=== PATIENT | male | born 1975 | race African-American/Black ===

== ENCOUNTER 2021-08-27 17:03 | Observation (INO) | payer OTHER ==
[2021-08-27] MEDS ORDERED: ASPIRIN 81 MG PO STA (17:22)
[2021-08-27] MEDS ORDERED: NITROGLYCERIN OINT 1 INCH/GM PACKET TOPICAL STA (17:22)
--- NOTE | 2021-08-27 17:29 | ED ---
General Adult HPI - General Chief complaint: Chest Pain Stated complaint: Chest Pain Time Seen by Provider: 08/27/21 17:11 Source: patient, EMS, RN notes reviewed Mode of arrival: EMS Limitations: no limitations - History of Present Illness Initial comments: Patient is a pleasant 46-year-old male presenting to the emergency Department with chest discomfort. Onset of symptoms was today. Patient has had several episodes of chest discomfort. Patient has some mild associated dyspnea. No nausea. No diaphoresis. Patient did have similar symptoms a year or 2 ago and was told he had a heart attack at that time. Patient is difficult time describing the type of discomfort that he had. Patient is currently in a rehab facility secondary to heroin use. Patient has been there for 2 weeks now. - Related Data Home Medications Medication Instructions Recorded Confirmed Acetaminophen Tab [Tylenol] 650 mg PO TID 08/27/21 08/27/21 Benztropine Mesylate [Cogentin] 0.5 mg PO BID@0615,1730 08/27/21 08/27/21 Budesonide/Formoterol Fumarate 2 puff INHALATION RT-BID@0615,1730 08/27/21 08/27/21 [Symbicort 80-4.5 Mcg Inhaler] Docusate [Colace] 100 mg PO BID PRN 08/27/21 08/27/21 Haloperidol Decanoate [Haldol D] 150 mg IM QMONTHLY 08/27/21 08/27/21 Ibuprofen [Motrin Ib] 600 mg PO Q6H PRN 08/27/21 08/27/21 Insulin Detemir [Levemir Flextouch 50 units SQ HS@2130 08/27/21 08/27/21 Pen] Loratadine [Claritin] 10 mg PO DAILY 08/27/21 08/27/21 Losartan Potassium 50 mg PO DAILY@0615 08/27/21 08/27/21 Magnesium Hydroxide [Milk of 2,400 mg PO DAILY PRN 08/27/21 08/27/21 Magnesia] Multivitamins, Thera [Multivitamin 1 tab PO DAILY 08/27/21 08/27/21 (formulary)] Pantoprazole [Protonix] 40 mg PO DAILY@0615 08/27/21 08/27/21 Thiamine [Vitamin B-1] 100 mg PO DAILY 08/27/21 08/27/21 amLODIPine [Norvasc] 5 mg PO DAILY@0615 08/27/21 08/27/21 busPIRone HCl [Buspar] 10 mg PO TID 08/27/21 08/27/21 guaiFENesin-Coden 100-10MG/5ML 10 ml PO Q4H 08/27/21 08/27/21 [Robitussin AC] metFORMIN HCL 1,000 mg PO BID@0530,0615 08/27/21 08/27/21 ondansetron HCL [Zofran] 8 mg PO Q6H PRN 08/27/21 08/27/21 traZODone HCL [Desyrel] 50 - 150 mg PO DIRECTED 08/27/21 08/27/21 Allergies Allergy/AdvReac Type Severity Reaction Status Date / Time blue dye AdvReac Rapid Verified 08/27/21 18:03 Heart Rate Review of Systems ROS Statement: Those systems with pertinent positive or pertinent negative responses have been documented in the HPI. ROS Other: All systems not noted in ROS Statement are negative. Constitutional: Denies: fever Eyes: Denies: eye pain ENT: Denies: ear pain Respiratory: Reports: as per HPI Cardiovascular: Reports: as per HPI, chest pain Endocrine: Denies: fatigue Gastrointestinal: Denies: abdominal pain Genitourinary: Denies: dysuria Musculoskeletal: Denies: back pain Skin: Denies: rash Neurological: Denies: weakness Past Medical History Past Medical History: Coronary Artery Disease (CAD), Diabetes Mellitus Additional Past Medical History / Comment(s): pt type 1 diabetes pt received 50 uints of levemeir hs History of Any Multi-Drug Resistant Organisms: None Reported Past Surgical History: Orthopedic Surgery Additional Past Surgical History / Comment(s): Knee surgey 1993 Past Psychological History: Schizophrenia Smoking Status: Current every day smoker Past Alcohol Use History: Unable to Obtain Past Drug Use History: Cocaine, Marijuana General Exam Limitations: no limitations General appearance: alert, in no apparent distress Head exam: Present: normocephalic Eye exam: Present: normal appearance Neck exam: Present: normal inspection Respiratory exam: Present: normal lung sounds bilaterally. Absent: chest wall tenderness Cardiovascular Exam: Present: regular rate, normal rhythm Expanded Peripheral pulses: 2+: Radial (R), Radial (L), Posterior Tibialis (R), Posterior Tibialis (L) GI/Abdominal exam: Present: soft. Absent: tenderness Extremities exam: Present: normal inspection. Absent: pedal edema, calf tenderness Neurological exam: Present: alert Psychiatric exam: Present: normal affect, normal mood Skin exam: Present: normal color Course Vital Signs 08/27/21 17:07 Temperature 96 F L Pulse Rate 70 Respiratory 18 Rate Blood Pressure 143/90 O2 Sat by Pulse 95 Oximetry EKG Findings - EKG Comments: EKG Findings:: Normal sinus rhythm with a rate of 72. MN 166. QRS 82. QT 340. QTc 372. Normal axis. Normal QRS. Nonspecific ST-T. Medical Decision Making - Medical Decision Making Patient reevaluated and resting comfortably in bed. Patient updated on results and plan. Case was discussed with Dr. morocho, who will admit covering for hospital call. - Lab Data Result diagrams: 08/27/21 17:07 08/27/21 17:07 Lab Results 08/27/21 08/27/21 08/27/21 Range/Units 17:07 17:07 17:07 WBC 5.8 (3.8-10.6) k/uL RBC 4.34 (4.30-5.90) m/uL Hgb 13.0 (13.0-17.5) gm/dL Hct 39.1 (39.0-53.0) % MCV 90.0 (80.0-100.0) fL MCH 30.0 (25.0-35.0) pg MCHC 33.4 (31.0-37.0) g/dL RDW 12.8 (11.5-15.5) % Plt Count 219 (150-450) k/uL MPV 7.8 Neutrophils % 54 % Lymphocytes % 33 % Monocytes % 7 % Eosinophils % 5 % Basophils % 0 % Neutrophils # 3.1 (1.3-7.7) k/uL Lymphocytes # 1.9 (1.0-4.8) k/uL Monocytes # 0.4 (0-1.0) k/uL Eosinophils # 0.3 (0-0.7) k/uL Basophils # 0.0 (0-0.2) k/uL PT 9.9 (9.0-12.0) sec INR 0.9 (<1.2) APTT 25.5 (22.0-30.0) sec D-Dimer 0.38 (<0.60) mg/L FEU Sodium 133 L (137-145) mmol/L Potassium 4.5 (3.5-5.1) mmol/L Chloride 100 (98-107) mmol/L Carbon Dioxide 27 (22-30) mmol/L Anion Gap 6 mmol/L BUN 23 H (9-20) mg/dL Creatinine 0.84 (0.66-1.25) mg/dL Est GFR (CKD-EPI)AfAm >90 (>60 ml/min/1.73 sqM) Est GFR (CKD-EPI)NonAf >90 (>60 ml/min/1.73 sqM) Glucose 233 H (74-99) mg/dL Calcium 9.4 (8.4-10.2) mg/dL Magnesium 1.8 (1.6-2.3) mg/dL Total Bilirubin 0.3 (0.2-1.3) mg/dL AST 18 (17-59) U/L ALT 16 (4-49) U/L Alkaline Phosphatase 73 (38-126) U/L Troponin I (0.000-0.034) ng/mL Total Protein 6.9 (6.3-8.2) g/dL Albumin 3.8 (3.5-5.0) g/dL 08/27/21 Range/Units 17:07 WBC (3.8-10.6) k/uL RBC (4.30-5.90) m/uL Hgb (13.0-17.5) gm/dL Hct (39.0-53.0) % MCV (80.0-100.0) fL MCH (25.0-35.0) pg MCHC (31.0-37.0) g/dL RDW (11.5-15.5) % Plt Count (150-450) k/uL MPV Neutrophils % % Lymphocytes % % Monocytes % % Eosinophils % % Basophils % % Neutrophils # (1.3-7.7) k/uL Lymphocytes # (1.0-4.8) k/uL Monocytes # (0-1.0) k/uL Eosinophils # (0-0.7) k/uL Basophils # (0-0.2) k/uL PT (9.0-12.0) sec INR (<1.2) APTT (22.0-30.0) sec D-Dimer (<0.60) mg/L FEU Sodium (137-145) mmol/L Potassium (3.5-5.1) mmol/L Chloride (98-107) mmol/L Carbon Dioxide (22-30) mmol/L Anion Gap mmol/L BUN (9-20) mg/dL Creatinine (0.66-1.25) mg/dL Est GFR (CKD-EPI)AfAm (>60 ml/min/1.73 sqM) Est GFR (CKD-EPI)NonAf (>60 ml/min/1.73 sqM) Glucose (74-99) mg/dL Calcium (8.4-10.2) mg/dL Magnesium (1.6-2.3) mg/dL Total Bilirubin (0.2-1.3) mg/dL AST (17-59) U/L ALT (4-49) U/L Alkaline Phosphatase (38-126) U/L Troponin I <0.012 (0.000-0.034) ng/mL Total Protein (6.3-8.2) g/dL Albumin (3.5-5.0) g/dL - Radiology Data Radiology results: image reviewed (Chest x-ray shows no acute process) Disposition Clinical Impression: Chest pain Disposition: ADMITTED IP TO THIS HOSP Is patient prescribed a controlled substance at d/c from ED?: No Referrals: None,Stated [Primary Care Provider] - 1-2 days Decision Time: 18:24
[2021-08-27 17:38] LABS: Basophils % (A) 0 %; Eosinophils # (A) 0.3 k/uL (0-0.7); Eosinophils % (A) 5 %; HCT 39.1 % (39.0-53.0); Lymphocytes # (A) 1.9 k/uL (1.0-4.8); Lymphocytes % (A) 33 %; MCHC 33.4 g/dL (31.0-37.0); Mean Platelet Volume 7.8; Monocytes # (A) 0.4 k/uL (0-1.0); Monocytes % (A) 7 %; Neutrophils # (A) 3.1 k/uL (1.3-7.7); Neutrophils % (A) 54 %; Platelet Count 219 k/uL (150-450); RBC 4.34 m/uL (4.30-5.90); RDW 12.8 % (11.5-15.5); WBC 5.8 k/uL (3.8-10.6)
[2021-08-27 17:47] LABS: ALT 16 U/L (4-49); AST 18 U/L (17-59); African American GFR (CKD) >90 (>60 ml/min/1.73 sqM); Albumin 3.8 g/dL (3.5-5.0); Alkaline Phosphatase 73 U/L (38-126); Anion Gap 6 mmol/L; Blood Urea Nitrogen 23 mg/dL (9-20); Calcium 9.4 mg/dL (8.4-10.2); Carbon Dioxide 27 mmol/L (22-30); Chloride 100 mmol/L (98-107); Glucose 233 mg/dL (74-99); Magnesium 1.8 mg/dL (1.6-2.3); Non-African American GFR(CKD) >90 (>60 ml/min/1.73 sqM); Potassium 4.5 mmol/L (3.5-5.1); Sodium 133 mmol/L (137-145); Total Bilirubin 0.3 mg/dL (0.2-1.3); Total Protein 6.9 g/dL (6.3-8.2)
[2021-08-27 17:52] LABS: INR 0.9 (<1.2); Partial Thromboplastin Time 25.5 sec (22.0-30.0); Prothrombin Time 9.9 sec (9.0-12.0)
--- NOTE | 2021-08-27 18:08 | XR ---
EXAMINATION TYPE: XR chest 2V DATE OF EXAM: 08/27/2021 COMPARISON: NONE HISTORY: Chest pain TECHNIQUE: 2 views FINDINGS: Heart and mediastinum are normal. Lungs are clear. Diaphragm is normal. Bony thorax is inta ct. There are chest leads. IMPRESSION: No active cardiopulmonary disease. Normal heart.
[2021-08-27] MEDS ORDERED: NITROGLYCERIN SL TABS 0.4 MG TAB SUBLINGUAL PRN (18:27)
--- NOTE | 2021-08-27 20:57 | P.HPIM ---
History of Present Illness H&P Date: 08/27/21 The patient is a 46-year-old male with a PMH of coronary artery disease with no history of stents as per patient, COPD, type II DM, hypertension, hyperlipidemia, polysubstance abuse including crack cocaine (last used just prior to admission into [facility] 2 weeks ago), and tobacco abuse who prese nted to the emergency room with complaints of chest pain. The patient is currently residing at [facility] over the past 2 weeks and notes that he was in his usual state of health until this afternoon when he developed new left- sided chest discomfort. The pain is pressure and sharp-like in nature, lasting for a second at a time, occurring several times a minute, associated with some mild shortness of breath. The patient reports that the pain was initially 7 out of 10, but has since resolved after he took a nap in the emergency room. He reports that he had similar's symptoms 2 years ago and was told that he may have had a minor heart attack at that time. Denied lower extremity swelling or pain. Denied recent travel or prolonged immobilization. Denied pleuritic nature to the pain. The patient states that he has not been taking any of his medications over the past several months and has not seen a physician during that time. He denied any additional complaints at the time of interview. He denied fever, chills, cough, nausea, vomiting, dizziness, diaphoresis. EKG in the emergency room revealed normal sinus rhythm at 72 bpm without any acute ST/T-wave changes noted as reviewed by me. Chest x-ray was unremarkable. Laboratory evaluation was reviewed and was remarkable for sodium 133, BUN 23, glucose 233, troponin less than 0.012. Review of systems: Pertinent positives and negatives as discussed in HPI, a complete review of systems was performed and all other systems are negative. Physical examination: General: non toxic, no distress, appears at stated age, obese Derm: no unusual rashes/lesions no unusual ecchymoses, warm, dry Head: atraumatic, normocephalic, symmetric Eyes: EOMI, no lid lag, anicteric sclera, pupils equal round reactive to light ENT: Nose and ears atraumatic, no thrush, no pharyngeal erythema Neck: No thyromegaly, no cervical lymphadenopathy, trachea midline, supple Mouth: no lip lesion, mucus membranes moist Cardiovascular: S1S2 reg, no murmur, positive posterior tibial pulse bilateral, no edema, capillary refill less than 2 seconds Lungs: CTA bilateral, no rhonchi, no rales , no accessory muscle use Abdominal: soft, nontender to palpation, no guarding, no appreciable organomegaly, normal bowel sounds Ext: no gross muscle atrophy, muscle strength 5 out of 5 in all 4 extremities grossly, no contractures, Neuro: CN II-XI grossly intact, light touch intact all 4 extremities, finger to nose within normal limits, Psych: Alert, oriented, appropriate affect Assessment/plan Atypical chest pain -Cardiac monitoring -Cardiology consulted -Trend troponin -C/w ASA Chronic conditions: Type II DM, COPD, hypertension, hyperlipidemia, polysubstance abuse -Strongly advised on importance of cessation from substance use -Check A1c -Lispro insulin sliding scale blood glucose monitoring -Levemir 20 units daily at bedtime -Resume antihypertensives -Patient has not been taking his medications at home for several months DVT prophylaxis -Heparin subcu The patient is admitted with an anticipated less than 2 midnight stay for evaluation of atypical chest pain CODE STATUS: Full Code Discussed with: Patient Anticipated discharge date: in am Anticipated discharge place: [facility] Past Medical History Past Medical History: Coronary Artery Disease (CAD), Diabetes Mellitus Additional Past Medical History / Comment(s): pt type 1 diabetes pt received 50 uints of levemeir hs History of Any Multi-Drug Resistant Organisms: None Reported Past Surgical History: Orthopedic Surgery Additional Past Surgical History / Comment(s): Knee surgey 1993 Past Psychological History: Schizophrenia Smoking Status: Current every day smoker Past Alcohol Use History: Unable to Obtain Past Drug Use History: Cocaine, Marijuana - Past Family History Father Family Medical History: Coronary Artery Disease (CAD) Medications and Allergies Home Medications Medication Instructions Recorded Confirmed Type Acetaminophen Tab [Tylenol] 650 mg PO TID 08/27/21 08/27/21 History Benztropine Mesylate [Cogentin] 0.5 mg PO BID@0615,1730 08/27/21 08/27/21 History Budesonide/Formoterol Fumarate 2 puff INHALATION RT-BID@0615,1730 08/27/21 08/27/21 History [Symbicort 80-4.5 Mcg Inhaler] Docusate [Colace] 100 mg PO BID PRN 08/27/21 08/27/21 History Haloperidol Decanoate [Haldol D] 150 mg IM QMONTHLY 08/27/21 08/27/21 History Ibuprofen [Motrin Ib] 600 mg PO Q6H PRN 08/27/21 08/27/21 History Insulin Detemir [Levemir Flextouch 50 units SQ HS@2130 08/27/21 08/27/21 History Pen] Loratadine [Claritin] 10 mg PO DAILY 08/27/21 08/27/21 History Losartan Potassium 50 mg PO DAILY@15 08/27/21 08/27/21 History Magnesium Hydroxide [Milk of 2,400 mg PO DAILY PRN 08/27/21 08/27/21 History Magnesia] Multivitamins, Thera [Multivitamin 1 tab PO DAILY 08/27/21 08/27/21 History (formulary)] Pantoprazole [Protonix] 40 mg PO DAILY@61408/27/21 08/27/21 History Thiamine [Vitamin B-1] 100 mg PO DAILY 08/27/21 08/27/21 History amLODIPine [Norvasc] 5 mg PO DAILY@15 08/27/21 08/27/21 History busPIRone HCl [Buspar] 10 mg PO TID 08/27/21 08/27/21 History guaiFENesin-Coden 100-10MG/5ML 10 ml PO Q4H 08/27/21 08/27/21 History [Robitussin AC] metFORMIN HCL 1,000 mg PO BID@0530,0615 08/27/21 08/27/21 History ondansetron HCL [Zofran] 8 mg PO Q6H PRN 08/27/21 08/27/21 History traZODone HCL [Desyrel] 50 - 150 mg PO DIRECTED 08/27/21 08/27/21 History Allergies Allergy/AdvReac Type Severity Reaction Status Date / Time blue dye AdvReac Rapid Verified 08/27/21 18:03 Heart Rate Physical Exam Vitals: Vital Signs Temp Pulse Resp BP Pulse Ox 08/27/21 20:00 98.1 F 71 18 156/94 97 08/27/21 18:42 69 18 123/99 99 08/27/21 17:07 96 F L 70 18 143/90 95 Intake and Output 11/06/0908/27/21 08/27/21 06:59 14:59 22:59 Other: Weight 104.326 kg Results CBC & Chem 7: 08/27/21 17:07 08/27/21 17:07 Labs: Abnormal Lab Results - Last 24 Hours (Table) 08/27/21 Range/Units 17:07 Sodium 133 L (137-145) mmol/L BUN 23 H (9-20) mg/dL Glucose 233 H (74-99) mg/dL
[2021-08-27] MEDS ORDERED: INSULIN DETEMIR (LEVEMIR) 100 UNIT/ML SYR SQ SCH ×2 (21:00→21:30)
[2021-08-27 21:20] LABS: Glucose,Whole Blood 275 mg/dL (75-99)
[2021-08-27] MEDS: INSULIN ASPART (NovoLOG) 100 UNIT/ML VIAL SQ SCH (21:48)
[2021-08-27] MEDS: busPIRone HCl 10 MG TAB PO SCH (23:22)
[2021-08-27] MEDS: HEPARIN SODIUM,PORCINE/PF 5,000 UNIT/0.5 ML SYRINGE SQ SCH (23:23)
[2021-08-27] MEDS: NITROGLYCERIN OINT 1 INCH/GM PACKET TOPICAL SCH (23:24)
[2021-08-28] MEDS: IPRATROPIUM-ALBUTEROL 3 ML NEB INHALATION PRN ×2 (04:47→07:29)
[2021-08-28] MEDS ORDERED: metFORMIN 500 MG TAB PO SCH (05:30)
[2021-08-28] MEDS: NITROGLYCERIN OINT 1 INCH/GM PACKET TOPICAL SCH (05:42)
[2021-08-28] MEDS ORDERED: BENZTROPINE MESYLATE 0.5 MG TAB PO SCH (06:15)
[2021-08-28] MEDS ORDERED: PANTOPRAZOLE 40 MG TABLET PO SCH (06:15)
[2021-08-28] MEDS ORDERED: LOSARTAN 50 MG TAB PO SCH (06:15)
[2021-08-28] MEDS ORDERED: SYMBICORT 80-4.5 MCG INHALER INHALATION SCH (06:15)
[2021-08-28] MEDS ORDERED: amLODIPine 5 MG TAB PO SCH (06:15)
[2021-08-28 07:23] LABS: Glucose,Whole Blood 198 mg/dL (75-99)
[2021-08-28 07:37] VITALS: BP 142/88; RESP 19; TEMP 98.1
[2021-08-28 07:44] VITALS: PULSE 70
[2021-08-28] MEDS ORDERED: DOBUTamine DRIP for NUC MED 500 MG in DEXTROSE/WATER 1 250ML.BAG IV PRN (07:59)
[2021-08-28] MEDS: INSULIN ASPART (NovoLOG) 100 UNIT/ML VIAL SQ SCH ×2 (08:20→13:25)
[2021-08-28] MEDS: HEPARIN SODIUM,PORCINE/PF 5,000 UNIT/0.5 ML SYRINGE SQ SCH ×2 (08:20→15:27)
[2021-08-28] MEDS: busPIRone HCl 10 MG TAB PO SCH (08:22)
[2021-08-28] MEDS ORDERED: THIAMINE 100 MG TAB PO SCH (09:00)
[2021-08-28] MEDS ORDERED: ASPIRIN 325 MG TAB PO SCH (09:00)
--- NOTE | 2021-08-28 10:14 | CONS ---
CONSULTATION Mr. Muñiz is a 46-year-old male who presented with symptoms of chest discomfort. Patient was at [facility] for detoxification from cocaine use and had an episode of chest discomfort. According to him, he had a prior history of myocardial infarction, although he thinks he had a cardiac catheterization at [facility] and had no evidence of obstructive disease, according to him. He last used cocaine about 2 weeks ago. He has a history of chronic tobacco use, hypertension, diabetes. He has mild dyspnea on exertion. Yesterday at rest, he had an episode of chest discomfort without any radiation. He denies any associated dizziness or palpitations. No syncope. No clear PND or orthopnea. At the time of my evaluation, he is pain-free. Patient is trying to increase his level of activity. He denies any prior history of congestive heart failure or history of syncope. MEDICATIONS: His medications at home included trazodone, metformin, BuSpar, Norvasc 5 mg daily, Protonix, losartan 50 mg daily, insulin, Symbicort, Cogentin, Colace and Haldol. REVIEW OF SYSTEMS: RESPIRATORY SYSTEM: He had dyspnea on exertion, history of chronic obstructive lung disease. GI SYSTEM: No recent GI bleeding. No peptic ulcer disease. SYSTEM: No dysuria or hematuria. NERVOUS SYSTEM: No history of stroke or seizure. PHYSICAL EXAMINATION: Qyppr-[id number]-[id number]-old male, alert, oriented, in no apparent distress. Blood pressure 142/80 with a heart rate in the 70s. HEAD: Normocephalic. EYES: Sclerae anicteric. NECK: Good carotid upstroke. No bruit. No jugular venous distention. LUNGS: Scattered wheezes bilaterally and decreased air exchange. HEART: Regular rate and rhythm. S1, S2. No S3. No rub or gallop. ABDOMEN: Soft, nontender. Positive bowel sounds. No organomegaly. EXTREMITIES: No edema. Intact distal pulses. LAB DATA: EKG sinus mechanism, normal axis and intervals with minor nonspecific ST-T wave changes. Chest x-ray shows no evidence of infiltrate. Troponin less than 0.012 for 3 samples. BUN and creatinine 23 and 0.84. Hemoglobin of 13. Potassium 4.5. IMPRESSION: 1. Chest discomfort of unclear etiology; has some atypical features for ischemic heart disease in a patient with multiple risk factors. 2. Multi-substance abuse with recent use of cocaine. 3. History of chronic tobacco use. 4. Hypertension. 5. Diabetes mellitus. RECOMMENDATIONS: I will stop the nitro paste. I will proceed with dobutamine stress echocardiogram as well as transthoracic echocardiogram. If there is no evidence of stress-induced ischemia, then no further cardiac workup will be needed. Thank you for this consult. Will follow with you. KAREYL / IJN: [id number] /
[2021-08-28 10:18] LABS: HCT 39.6 % (39.6-50.0); HGB 13.3 g/dL (13.0-17.0); MCH 29.6 pg (27.0-32.0); MCHC 33.6 g/dL (32.0-37.0); Mean Platelet Volume 10.9 fL (9.5-12.2); Platelet Count 234 X 10*3/uL (140-440); RDW 12.6 % (11.5-14.5)
[2021-08-28 11:01] LABS: African American GFR (CKD) 104.9 (60.0-200.0); Anion Gap 10.3 mmol/L (4.00-12.00); BUN/Creat Ratio 18.9 Ratio (12.00-20.00); Blood Urea Nitrogen 18.9 mg/dL (9.0-27.0); Calcium 9.3 mg/dL (8.7-10.3); Carbon Dioxide 25.7 mmol/L (21.6-31.8); Chol/HDL Ratio 5.07 Ratio; HDL Cholesterol 47.7 mg/dL (40.00-60.00); LDL Cholesterol,Calculated 170.5 mg/dL (0.0-131.0); Non-African American GFR(CKD) 90.5 (60.0-200.0); Potassium 4.2 mmol/L (3.5-5.5); VLDL Calculation 23.8 mg/dL (5.00-40.00)
[2021-08-28 11:50] LABS: Glucose,Whole Blood 162 mg/dL (75-99)
--- NOTE | 2021-08-28 12:01 | ECHOF ---
Referral Reason: MEASUREMENTS -------- HEIGHT: 175.3 cm WEIGHT: 104.3 kg BP: IVSd: 1.8 cm (0.6 - 1.1) LVIDd: 3.8 cm (3.9 - 5.3) LVPWd: 1.6 cm (0.6 - 1.1) IVSs: 2.2 cm LVIDs: 2.9 cm LVPWs: 1.7 cm LA Diam: 4.0 cm (2.7 - 3.8) LAESV Index (A-L): 26.68 ml/m Ao Diam: 3.3 cm (2.0 - 3.7) AV Cusp: 2.0 cm (1.5 - 2.6) MV EXCURSION: 17.614 mm (> 18.000) MV EF SLOPE: 67 mm/s (70 - 150) EPSS: 0.2 cm MV E Chad: 0.55 m/s MV DecT: 249 ms MV A Chad: 0.82 m/s MV E/A Ratio: 0.68 AV maxP.34 mmHg AV meanP.08 mmHg RAP: 5.00 mmHg RVSP: 14.84 mmHg FINDINGS -------- Sinus rhythm. This was a technically adequate study. The left ventricular size is normal. There is severe concentric left ventricular hypertrophy. Ove rall left ventricular systolic function is normal with, an EF between 55 - 60 %. The diastolic fill ing pattern is normal for the age of the patient 8.63. No Reginaldo LVOT maxPg 23.30mm Hg: LVOT meanPG 7. 22 mmHg.. The right ventricle is normal in size. Normal LA size by volume 22+/-6 ml/m2. The right atrial size is normal. The aortic valve is trileaflet, and appears structurally normal. No aortic stenosis or regurgitation. The mitral valve is normal. Mild mitral regurgitation is present. The tricuspid valve appears structurally normal. Mild tricuspid regurgitation present. Right vent ricular systolic pressure is normal at < 35 mmHg. There is no pulmonic regurgitation present. The aortic root size is normal. There is no pericardial effusion. CONCLUSIONS -------- 1. There is severe concentric left ventricular hypertrophy. 2. Overall left ventricular systolic function is normal with, an EF between 55 - 60 %. 3. No Reginaldo LVOT maxPg 23.30mm Hg: LVOT meanPG 7.22 mmHg.. 4. Normal LA size by volume 22+/-6 ml/m2. 5. The aortic valve is trileaflet, and appears structurally normal. No aortic stenosis or regurgitati on. 6. Mild mitral regurgitation is present. 7. Mild tricuspid regurgitation present. 8. There is no pericardial effusion. TREAD CUTTER: Jannet Hernandez RDCS
--- NOTE | 2021-08-28 13:31 | P.DS ---
Providers Date of admission: 08/27/21 18:27 Expected date of discharge: 08/28/21 Attending physician: Mariya Jordan DO Consults: 08/27/21 18:27 Consult Physician Urgent Consulting Provider: David Amador Consult Reason/Comments: cp Do you want consulting provider notified?: Yes Primary care physician: Stated None Hospital Course: 46-year-old male with a PMH of coronary artery disease with no history of stents as per patient, COPD, type II DM, hypertension, hyperlipidemia, polysubstance abuse including crack cocaine (last used just prior to admission into [facility] 2 weeks ago), and tobacco abuse who presented to the emergency room with complaints of chest pain. The patient is currently residing at [facility] over the past 2 weeks. The pain is pressure and sharp-like in nature, lasting for a second at a time, occurring several times a minute, associated with some mild shortness of breath. The patient reports that the pain was initially 7 out of 10, but has since resolved after he took a nap in the emergency room. He reports that he had similar's symptoms 2 years ago and was told that he may have had a minor heart attack at that time. Denied lower extremity swelling or pain. Denied recent travel or prolonged immobilization. Denied pleuritic nature to the pain. The patient states that he has not been taking any of his medications over the past several months and has not seen a physician during that time. He denied any additional complaints at the time of interview. He denied fever, chills, cough, nausea, vomiting, dizziness, diaphoresis. EKG in the emergency room revealed normal sinus rhythm at 72 bpm without any acute ST/T-wave changes noted as reviewed by me. Chest x-ray was unremarkable. Laboratory evaluation was reviewed and was remarkable for sodium 133, BUN 23, glucose 233, troponin less than 0.012. Patient was seen by cardiology, had an echocardiogram that showed severe concentric LVH. He also had dobutamine stress echocardiogram that was okay for cardiology. Report is currently pending. Patient was cleared by cardiology for discharge. Patient was advised to quit using drugs. He will be discharged home in stable condition. Plan - Discharge Summary Discharge Rx Participant: Yes New Discharge Prescriptions: Continue Pantoprazole [Protonix] 40 mg PO DAILY@0615 Loratadine [Claritin] 10 mg PO DAILY ondansetron HCL [Zofran] 8 mg PO Q6H PRN PRN Reason: Nausea Insulin Detemir [Levemir Flextouch Pen] 50 units SQ HS@0 Acetaminophen Tab [Tylenol] 650 mg PO TID Multivitamins, Thera [Multivitamin (formulary)] 1 tab PO DAILY metFORMIN HCL 1,000 mg PO BID@0530,0615 Ibuprofen [Motrin Ib] 600 mg PO Q6H PRN PRN Reason: Pain Docusate [Colace] 100 mg PO BID PRN PRN Reason: Constipation Losartan Potassium 50 mg PO DAILY@614 traZODone HCL [Desyrel] 50 - 150 mg PO DIRECTED Thiamine [Vitamin B-1] 100 mg PO DAILY Budesonide/Formoterol Fumarate [Symbicort 80-4.5 Mcg Inhaler] 2 puff INHALATION RT-BID@614,1729 Magnesium Hydroxide [Milk of Magnesia] 2,400 mg PO DAILY PRN PRN Reason: Constipation Haloperidol Decanoate [Haldol D] 150 mg IM QMONTHLY guaiFENesin-Coden 100-10MG/5ML [Robitussin AC] 10 ml PO Q4H busPIRone HCl [Buspar] 10 mg PO TID Benztropine Mesylate [Cogentin] 0.5 mg PO BID@614,1729 amLODIPine [Norvasc] 5 mg PO DAILY@614 Discharge Medication List Acetaminophen Tab [Tylenol] 650 mg PO TID 08/27/21 [History] Benztropine Mesylate [Cogentin] 0.5 mg PO BID@614,1730 08/27/21 [History] Budesonide/Formoterol Fumarate [Symbicort 80-4.5 Mcg Inhaler] 2 puff INHALATION RT-BID@614,17308/27/21 [History] Docusate [Colace] 100 mg PO BID PRN 08/27/21 [History] Haloperidol Decanoate [Haldol D] 150 mg IM QMONTHLY 08/27/21 [History] Ibuprofen [Motrin Ib] 600 mg PO Q6H PRN 08/27/21 [History] Insulin Detemir [Levemir Flextouch Pen] 50 units SQ HS@2130 08/27/21 [History] Loratadine [Claritin] 10 mg PO DAILY 08/27/21 [History] Losartan Potassium 50 mg PO DAILY@61408/27/21 [History] Magnesium Hydroxide [Milk of Magnesia] 2,400 mg PO DAILY PRN 08/27/21 [History] Multivitamins, Thera [Multivitamin (formulary)] 1 tab PO DAILY 08/27/21 [History] Pantoprazole [Protonix] 40 mg PO DAILY@61408/27/21 [History] Thiamine [Vitamin B-1] 100 mg PO DAILY 08/27/21 [History] amLODIPine [Norvasc] 5 mg PO DAILY@61408/27/21 [History] busPIRone HCl [Buspar] 10 mg PO TID 08/27/21 [History] guaiFENesin-Coden 100-10MG/5ML [Robitussin AC] 10 ml PO Q4H 08/27/21 [History] metFORMIN HCL 1,000 mg PO BID@0530,0615 08/27/21 [History] ondansetron HCL [Zofran] 8 mg PO Q6H PRN 08/27/21 [History] traZODone HCL [Desyrel] 50 - 150 mg PO DIRECTED 08/27/21 [History] Follow up Appointment(s)/Referral(s): None,Stated [Primary Care Provider] - 1-2 days
--- NOTE | 2021-08-28 13:56 | ECHOS ---
STRESS ECHOCARDIOGRAM INDICATIONS: Chest pain BASELINE HEART RATE: 77 BASELINE BLOOD PRESSURE: 123/84 MAXIMUM HEART RATE: 138 MAXIMUM BLOOD PRESSURE: 228/53 85% MPHR: 149 100% MPHR: 175 METS: NA MAXIMUM STAGE REACHED: NA TOTAL EXERCISE TIME: 12:38 CLINICAL INFORMATION: Baseline rhythm is sinus mechanism, rate of 77, normal axis and intervals, nonspecific ST-T wave changes. Baseline blood pressure 123/84 mmHg. Patient received an infusion of dobutamine per protocol. Peak rate 138 beats per minute, which is equal to 79% maximum predicted heart rate. Peak blood pressure 228/53 mmHg. Electrocardiograph monitoring revealed no evidence of diagnostic ischemic ST deviation. Rare PVCs were noted. FINDINGS: Baseline echocardiogram revealed normal wall motion. At peak infusion, there was normal wall motion augmentation with no hypokinesis or dyskinesis. CONCLUSION: 1. Nondiagnostic electrocardiographic response to dobutamine infusion secondary to the inability to achieve 85% maximum predicted heart rate. At the rate achieved, there was no evidence of ST-segment changes. 2. Normal stress echocardiogram with no evidence of stress-induced ischemia at the rate achieved. MMODL / IJN: [id number] /
== END 2021-08-28 15:44 | disposition home or self-care (01) ==
LOC: EC 17:03 → 6NMEDSUR 18:27
PROVIDERS: ADMIT Internal Medicine; ATTEND Internal Medicine
DX: R07.89 Other chest pain (principal); I25.10 Atherosclerotic heart disease of native coronary artery without angina pectoris; E11.9 Type 2 diabetes mellitus without complications; J44.9 Chronic obstructive pulmonary disease, unspecified; I10 Essential (primary) hypertension; E78.5 Hyperlipidemia, unspecified; I08.1 Rheumatic disorders of both mitral and tricuspid valves; Z91.14 Patient's other noncompliance with medication regimen; F20.9 Schizophrenia, unspecified; F14.10 Cocaine abuse, uncomplicated; F11.10 Opioid abuse, uncomplicated; F12.10 Cannabis abuse, uncomplicated; I25.2 Old myocardial infarction; F17.200 Nicotine dependence, unspecified, uncomplicated; Z71.51 Drug abuse counseling and surveillance of drug abuser; Z20.822 Contact with and (suspected) exposure to COVID-19; Z79.51 Long term (current) use of inhaled steroids; Z79.4 Long term (current) use of insulin; Z79.84 Long term (current) use of oral hypoglycemic drugs; Z79.899 Other long term (current) drug therapy; Z91.048 Other nonmedicinal substance allergy status; Z98.890 Other specified postprocedural states; Z82.49 Family history of ischemic heart disease and other diseases of the circulatory system
CPT/HCPCS: 96372 ×2; 99285; 36415; 94640 ×2; 93005; 93306; 93351; 85379; 80061; 80053; 80048; 83735; 84484 ×2; 85025; 85027; 85610; 85730; 83036; 87635; 71046; G0378 ×2; J1644 ×2

== ENCOUNTER 2021-09-18 16:00 | Emergency (ER) | payer OTHER ==
[2021-09-18 16:08] VITALS: RESP 18; TEMP 96.4
[2021-09-18] MEDS ORDERED: dexAMETHasone 2 MG TAB PO STA (16:14)
--- NOTE | 2021-09-18 16:24 | ED ---
ENT HPI - General Chief complaint: ENT Stated complaint: Edema Source: patient, EMS, RN notes reviewed Mode of arrival: EMS - History of Present Illness Initial comments: Patient is a 46-year-old male that presents to the emergency department complaining of tongue swelling 3 days. Patient notes that sick heart given 50 mg of Benadryl which seemed to resolve majority of the symptoms. Patient notes that his tongue is a little bit numb and tingly. Patient denies any difficulty breathing swallowing or tolerating oral secretions. Patient is able to tolerate food and drink at this time. Patient is otherwise well-appearing. He denied any other issues or complaints. He denied chest pain first breath headache nausea vomiting diarrhea constipation fever fatigue chills. - Related Data Home Medications Medication Instructions Recorded Confirmed Acetaminophen Tab [Tylenol] 650 mg PO TID 08/27/21 08/27/21 Benztropine Mesylate [Cogentin] 0.5 mg PO BID@0615,1730 08/27/21 08/27/21 Budesonide/Formoterol Fumarate 2 puff INHALATION RT-BID@0615,1730 08/27/21 08/27/21 [Symbicort 80-4.5 Mcg Inhaler] Docusate [Colace] 100 mg PO BID PRN 08/27/21 08/27/21 Haloperidol Decanoate [Haldol D] 150 mg IM QMONTHLY 08/27/21 08/27/21 Ibuprofen [Motrin Ib] 600 mg PO Q6H PRN 08/27/21 08/27/21 Insulin Detemir [Levemir Flextouch 50 units SQ HS@2130 08/27/21 08/27/21 Pen] Loratadine [Claritin] 10 mg PO DAILY 08/27/21 08/27/21 Losartan Potassium 50 mg PO DAILY@0615 08/27/21 08/27/21 Magnesium Hydroxide [Milk of 2,400 mg PO DAILY PRN 08/27/21 08/27/21 Magnesia] Multivitamins, Thera [Multivitamin 1 tab PO DAILY 08/27/21 08/27/21 (formulary)] Pantoprazole [Protonix] 40 mg PO DAILY@0615 08/27/21 08/27/21 Thiamine [Vitamin B-1] 100 mg PO DAILY 08/27/21 08/27/21 amLODIPine [Norvasc] 5 mg PO DAILY@0615 08/27/21 08/27/21 busPIRone HCl [Buspar] 10 mg PO TID 08/27/21 08/27/21 guaiFENesin-Coden 100-10MG/5ML 10 ml PO Q4H 08/27/21 08/27/21 [Robitussin AC] metFORMIN HCL 1,000 mg PO BID@0530,0615 08/27/21 08/27/21 ondansetron HCL [Zofran] 8 mg PO Q6H PRN 08/27/21 08/27/21 traZODone HCL [Desyrel] 50 - 150 mg PO DIRECTED 08/27/21 08/27/21 Allergies Allergy/AdvReac Type Severity Reaction Status Date / Time blue dye AdvReac Rapid Verified 08/27/21 18:03 Heart Rate Review of Systems ROS Statement: Those systems with pertinent positive or pertinent negative responses have been documented in the HPI. ROS Other: All systems not noted in ROS Statement are negative. Past Medical History Past Medical History: Coronary Artery Disease (CAD), Diabetes Mellitus Additional Past Medical History / Comment(s): pt type 1 diabetes pt received 50 uints of levemeir hs History of Any Multi-Drug Resistant Organisms: None Reported Past Surgical History: Orthopedic Surgery Additional Past Surgical History / Comment(s): Knee surgey 1993 Past Anesthesia/Blood Transfusion Reactions: No Reported Reaction Past Psychological History: Schizophrenia Smoking Status: Current every day smoker Past Alcohol Use History: None Reported Past Drug Use History: Cocaine, Marijuana - Past Family History Father Family Medical History: Coronary Artery Disease (CAD) General Exam General appearance: alert, in no apparent distress, obese Head exam: Present: atraumatic, normocephalic, normal inspection Eye exam: Present: normal appearance, PERRL, EOMI. Absent: scleral icterus, conjunctival injection, periorbital swelling ENT exam: Present: normal exam, mucous membranes moist, other (Tongue is nonswollen, airway is patent, no erythema to the pharynx.) Neck exam: Present: normal inspection Respiratory exam: Present: normal lung sounds bilaterally. Absent: respiratory distress, wheezes, rales, rhonchi, stridor Cardiovascular Exam: Present: regular rate, normal rhythm, normal heart sounds. Absent: systolic murmur, diastolic murmur, rubs, gallop, clicks Extremities exam: Present: normal inspection, full ROM, normal capillary refill. Absent: tenderness, pedal edema, joint swelling, calf tenderness Neurological exam: Present: alert, oriented X3 Psychiatric exam: Present: normal affect, normal mood Skin exam: Present: warm, dry, intact, normal color. Absent: rash Course Vital Signs 09/18/21 16:02 Temperature 96.4 F L Pulse Rate 88 Respiratory 18 Rate Blood Pressure 143/89 O2 Sat by Pulse 99 Oximetry Medical Decision Making - Medical Decision Making 46-year-old male complaining of tongue swelling. 50 mg of Benadryl given prior to arrival, resolved majority of symptoms. 6 g of Decadron ordered for ALLERGIC reaction. Patient is agreeable with discharge home after medication. Case discussed with Dr. Patrick, patient discharge home. Disposition Clinical Impression: Tongue swelling, Allergic reaction Disposition: HOME SELF-CARE Condition: Stable Instructions (If sedation given, give patient instructions): General Allergic Reaction (ED) Additional Instructions: Please return to the Emergency Department if symptoms worsen or any other concerns. Follow-up with primary care 1-2 days. Continue take Benadryl as directed on the box. Is patient prescribed a controlled substance at d/c from ED?: No Referrals: None,Stated [Primary Care Provider] - 1-2 days Time of Disposition: 16:24
[2021-09-18 17:50] VITALS: BP 138/88; PULSE 92
== END 2021-09-18 17:50 | disposition home or self-care (01) ==
LOC: EC 16:00
DX: T78.40XA Allergy, unspecified, initial encounter (principal); E66.9 Obesity, unspecified; E10.9 Type 1 diabetes mellitus without complications; I25.10 Atherosclerotic heart disease of native coronary artery without angina pectoris; F20.9 Schizophrenia, unspecified; F17.200 Nicotine dependence, unspecified, uncomplicated; F12.90 Cannabis use, unspecified, uncomplicated; F14.90 Cocaine use, unspecified, uncomplicated; Z79.1 Long term (current) use of non-steroidal anti-inflammatories (NSAID); Z79.899 Other long term (current) drug therapy; Z68.36 Body mass index [BMI] 36.0-36.9, adult
CPT/HCPCS: 99284; J8540

== ENCOUNTER 2023-03-22 05:49 | Emergency (ER) | payer OTHER ==
[2023-03-22 05:54] LABS: Glucose,Whole Blood 377 mg/dL (70-110)
[2023-03-22 05:58] VITALS: TEMP 97.8
[2023-03-22] MEDS ORDERED: SODIUM CHLORIDE 0.9% 2,000 ML IV STA (06:08)
[2023-03-22 06:32] LABS: Basophils % (A) 1 %; Eosinophils # (A) 0.2 k/uL (0-0.7); Eosinophils % (A) 3 %; HGB 15.8 gm/dL (13.0-17.5); Lymphocytes % (A) 33 %; MCH 30.3 pg (25.0-35.0); MCHC 33.6 g/dL (31.0-37.0); MCV 90.1 fL (80.0-100.0); Mean Platelet Volume 9.3; Monocytes # (A) 0.4 k/uL (0-1.0); Monocytes % (A) 7 %; Neutrophils # (A) 3.4 k/uL (1.3-7.7); Neutrophils % (A) 55 %; Platelet Count 226 k/uL (150-450); RBC 5.22 m/uL (4.30-5.90); RDW 13.3 % (11.5-15.5); WBC 6.1 k/uL (3.8-10.6)
--- NOTE | 2023-03-22 06:37 | ED ---
Recheck HPI - General Chief Complaint: Recheck/Abnormal Lab/Rx Stated Complaint: Weakness Time Seen by Provider: 03/22/23 05:58 Source: patient, RN notes reviewed Mode of arrival: EMS Limitations: no limitations - History of Present Illness Initial Comments: This is a 48-year-old male who presents to the emergency department for elevated blood sugar and fyxxk-ewmuc-ndck shaking. Patient states that he has restless leg syndrome and last night around 8:30 PM, his right leg started to shake and also feels somewhat numb. Denies any weakness. He has been on Requip for this before, however he ran out. This was very helpful when he was taking it. Addit ionally, he has not taken his insulin 2 days. States that he gets busy and forgets. When taking his insulin, his blood sugars are usually in the 180s. He is supposed to take mealtime insulin and 50 units at bedtime. Denies any fevers, chills, sore throat, cough, dyspnea, chest pain, pa lpitations, abdominal pain, vomiting, diarrhea, back pain, or headaches. - Related Data Home Medications Medication Instructions Recorded Confirmed Ergocalciferol (Vitamin D2) 1,250 mcg PO MO 02/15/23 02/15/23 [Drisdol (50,000 Iu)] Haloperidol Lactate 100 mg IM QMONTHLY 02/15/23 02/15/23 metFORMIN HCL [Glucophage] 1,000 mg PO BID 02/15/23 02/15/23 Previous Rx's Medication Instructions Recorded Aspirin 81 mg PO DAILY 30 Days #30 tab 02/17/23 Atorvastatin [Lipitor] 20 mg PO DAILY 30 Days #30 tab 02/17/23 Insulin Aspart [NovoLOG Flexpen] 10 units SQ AC-TID 30 Days #1 each 02/17/23 Insulin Glargine,Hum.rec.anlog 50 units SQ HS 30 Days #1 each 02/17/23 [Lantus Solostar Pen] amLODIPine [Norvasc] 10 mg PO DAILY 30 Days #30 tab 02/17/23 rOPINIRole HCL [Requip] 0.25 mg PO HS #30 tablet 03/22/23 Allergies Allergy/AdvReac Type Severity Reaction Status Date / Time blue dye AdvReac Rapid Verified 03/22/23 05:58 Heart Rate Review of Systems ROS Statement: Those systems with pertinent positive or pertinent negative responses have been documented in the HPI. ROS Other: All systems not noted in ROS Statement are negative. Past Medical History Past Medical History: Coronary Artery Disease (CAD), Diabetes Mellitus Additional Past Medical History / Comment(s): pt type 1 diabetes pt received 50 uints of levemeir hs Last Myocardial Infarction Date:: 2021 History of Any Multi-Drug Resistant Organisms: None Reported Past Surgical History: Orthopedic Surgery Additional Past Surgical History / Comment(s): Knee surgey 1993 Past Anesthesia/Blood Transfusion Reactions: No Reported Reaction Past Psychological History: Schizophrenia Smoking Status: Current every day smoker Past Alcohol Use History: None Reported, Occasional Past Drug Use History: Cocaine, Marijuana - Past Family History Father Family Medical History: Coronary Artery Disease (CAD) General Exam Limitations: no limitations General appearance: alert, in no apparent distress Head exam: Present: atraumatic, normocephalic, normal inspection Respiratory exam: Present: normal lung sounds bilaterally. Absent: respiratory distress, wheezes, rales, rhonchi, stridor Cardiovascular Exam: Present: regular rate, normal rhythm, normal heart sounds. Absent: systolic murmur, diastolic murmur, rubs, gallop, clicks GI/Abdominal exam: Present: soft, normal bowel sounds. Absent: distended, tenderness, guarding, rebound, rigid Extremities exam: Present: other (There is no swelling, erythema, increased heat, or tenderness to the bilateral lower extremities. Sensation is intact and equal bilaterally. 2+ DP and PT pulses and capillary refill less than 1 second.) Neurological exam: Present: alert, oriented X3, CN II-XII intact Expanded Motor strength exam: RUE: 5, LUE: 5, RLE: 5, LLE: 5 Psychiatric exam: Present: normal affect, normal mood Skin exam: Present: warm, dry, intact, normal color. Absent: rash Course Vital Signs 03/22/23 03/22/23 03/22/23 05:53 06:36 07:00 Temperature 97.8 F Pulse Rate 66 63 61 Respiratory 18 18 16 Rate Blood Pressure 161/95 165/86 165/86 O2 Sat by Pulse 99 99 96 Oximetry Medical Decision Making - Medical Decision Making This is a 48-year-old male who presents to the emergency department for elevated blood sugar and right leg shaking. Was pt. sent in by a medical professional or institution? @ -No Did you speak to anyone other than the patient for history? @ -No Did you review nursing and triage notes? @ -Yes, and I agree, it is accurate with regards to the patient's symptoms. Were old charts reviewed? @ -No Differential Diagnosis? @ -Differential Hyperglycemia: DKA, HHS, medication noncompliance, illness, this is not meant to be an all- inclusive list. EKG interpreted by me (3pts min.)? @ -EKG interpreted by me demonstrating the following: Sinus rhythm. Ventricular rate 65 beats per minute, NH interval 163 ms, QRS duration 101 ms, QTC 443 ms. X-rays interpreted by me (1pt min.)? @ -Not obtained CT interpreted by me (1pt min.)? @ -Not obtained U/S interpreted by me (1pt. min.)? @ -Not obtained What testing was considered but not performed? (CT, X-rays, U/S, labs)? Why? @ -None What meds were considered but not given? Why? @ -None Did you discuss the management of the patient with other professionals? @ -No Did you reconcile home meds? @ -No Was smoking cessation discussed for >3mins.? @ -No Was critical care preformed (if so, how long)? @ -No Were there social determinants of health that impacted care today? How? (Homelessness, low income, unemployed, alcoholism, drug addiction, transportation, low edu. Level, literacy, decrease access to med. care, [facility], rehab)? @ -No Was there de-escalation of care discussed even if they declined? (Discuss DNR or withdrawal of care, Hospice)? @ -No What co-morbidities impacted this encounter? (DM, HTN, Smoking, COPD, CAD, Cancer, CVA, Hep., AIDS, mental health diagnosis, sleep apnea, morbid obesity)? @ -DM type 1, morbid obesity, CAD Was patient admitted / discharged? @ -Discharged. Blood sugar was initially 340. There is no sign of DKA, as the patient is not acidotic with a bicarb of 25 and ketones are negative. 2L bolus of IV fluids administered initially and recheck of his sugar was 288. He was given 5 units of IV regular insulin. Recheck of glucose after insulin was 184. Patient requests to resume the Requip for management of the RLS, as it worked very well for him. I am agreeable to this and a prescription for Requip was provided with dosing instructions reviewed. He was educated on the need to use his insulin daily as prescribed to reduce the risk of future complications associated with persistently elevated blood sugar, such as DKA and worsening of his neuropathy. Undiagnosed new problem with uncertain prognosis? @ -None Drug Therapy requiring intensive monitoring for toxicity (Heparin, Nitro, Insulin, Cardizem)? @ -None Were any procedures done? @ -None Diagnosis/symptom? @ -DM type 1 Acute, or Chronic, or Acute on Chronic? @ -Chronic Uncomplicated (without systemic symptoms) or Complicated (systemic symptoms)? @ -Uncomplicated Side effects of treatment? @ -None Exacerbation, Progression, or Severe Exacerbation] @ -Not applicable Poses a threat to life or bodily function? @ -No Diagnosis/symptom? @ -RLS Acute, or Chronic, or Acute on Chronic? @ -Acute on chronic Uncomplicated (without systemic symptoms) or Complicated (systemic symptoms)? @ -Uncomplicated Side effects of treatment? @ -None Exacerbation, Progression, or Severe Exacerbation] @ -Exacerbation Poses a threat to life or bodily function? @ -No Return precautions reviewed in depth, the patient is instructed to return to the emergency department with any new, worsening, or concerning symptoms. Patient verbalized understanding. This case was discussed in detail with the attending ED physician, Dr. Bedolla. Presentation, findings, and treatment plan discussed in detail as well. - Lab Data Result diagrams: 03/22/23 06:07 03/22/23 06:07 Lab Results 03/22/23 03/22/23 03/22/23 Range/Units 05:52 06:07 06:07 WBC 6.1 (3.8-10.6) k/uL RBC 5.22 (4.30-5.90) m/uL Hgb 15.8 (13.0-17.5) gm/dL Hct 47.0 (39.0-53.0) % MCV 90.1 (80.0-100.0) fL MCH 30.3 (25.0-35.0) pg MCHC 33.6 (31.0-37.0) g/dL RDW 13.3 (11.5-15.5) % Plt Count 226 (150-450) k/uL MPV 9.3 Neutrophils % 55 % Lymphocytes % 33 % Monocytes % 7 % Eosinophils % 3 % Basophils % 1 % Neutrophils # 3.4 (1.3-7.7) k/uL Lymphocytes # 2.0 (1.0-4.8) k/uL Monocytes # 0.4 (0-1.0) k/uL Eosinophils # 0.2 (0-0.7) k/uL Basophils # 0.0 (0-0.2) k/uL VBG pH (7.31-7.41) VBG pCO2 (37-51) mmHg VBG HCO3 (24-28) mmol/L Sodium 134 L (137-145) mmol/L Potassium 4.2 (3.5-5.1) mmol/L Chloride 101 (98-107) mmol/L Carbon Dioxide 23 (22-30) mmol/L Anion Gap 10 mmol/L BUN 17 (9-20) mg/dL Creatinine 1.09 (0.66-1.25) mg/dL Est GFR (CKD-EPI)AfAm >90 (>60 ml/min/1.73 sqM) Est GFR (CKD-EPI)NonAf 80 (>60 ml/min/1.73 sqM) Glucose 340 H (74-99) mg/dL POC Glucose (mg/dL) 377 H (70-110) mg/dL POC Glu Integrated Specialist ID Patricia Tejada Calcium 9.0 (8.4-10.2) mg/dL Phosphorus 4.3 (2.5-4.5) mg/dL Magnesium 1.9 (1.6-2.3) mg/dL Total Bilirubin 0.5 (0.2-1.3) mg/dL AST 22 (17-59) U/L ALT 18 (4-49) U/L Alkaline Phosphatase 111 (38-126) U/L Total Protein 6.8 (6.3-8.2) g/dL Albumin 3.6 (3.5-5.0) g/dL Urine Color Urine Appearance (Clear) Urine pH (5.0-8.0) Ur Specific Brumley (1.001-1.035) Urine Protein (Negative) Urine Glucose (UA) (Negative) Urine Ketones (Negative) Urine Blood (Negative) Urine Nitrite (Negative) Urine Bilirubin (Negative) Urine Urobilinogen (<2.0) mg/dL Ur Leukocyte Esterase (Negative) Urine RBC (0-5) /hpf Urine WBC (0-5) /hpf Urine Opiates Screen (NotDetected) Ur Oxycodone Screen (NotDetected) Urine Methadone Screen (NotDetected) Ur Propoxyphene Screen (NotDetected) Ur Barbiturates Screen (NotDetected) U Tricyclic Antidepress (NotDetected) Ur Phencyclidine Scrn (NotDetected) Ur Amphetamines Screen (NotDetected) U Methamphetamines Scrn (NotDetected) U Benzodiazepines Scrn (NotDetected) Urine Cocaine Screen (NotDetected) U Marijuana (THC) Screen (NotDetected) 03/22/23 03/22/23 03/22/23 Range/Units 06:30 07:34 07:37 WBC (3.8-10.6) k/uL RBC (4.30-5.90) m/uL Hgb (13.0-17.5) gm/dL Hct (39.0-53.0) % MCV (80.0-100.0) fL MCH (25.0-35.0) pg MCHC (31.0-37.0) g/dL RDW (11.5-15.5) % Plt Count (150-450) k/uL MPV Neutrophils % % Lymphocytes % % Monocytes % % Eosinophils % % Basophils % % Neutrophils # (1.3-7.7) k/uL Lymphocytes # (1.0-4.8) k/uL Monocytes # (0-1.0) k/uL Eosinophils # (0-0.7) k/uL Basophils # (0-0.2) k/uL VBG pH 7.34 (7.31-7.41) VBG pCO2 47 (37-51) mmHg VBG HCO3 25 (24-28) mmol/L Sodium (137-145) mmol/L Potassium (3.5-5.1) mmol/L Chloride (98-107) mmol/L Carbon Dioxide (22-30) mmol/L Anion Gap mmol/L BUN (9-20) mg/dL Creatinine (0.66-1.25) mg/dL Est GFR (CKD-EPI)AfAm (>60 ml/min/1.73 sqM) Est GFR (CKD-EPI)NonAf (>60 ml/min/1.73 sqM) Glucose (74-99) mg/dL POC Glucose (mg/dL) 288 H (70-110) mg/dL POC Glu Integrated Specialist ID Dayana Barkley Calcium (8.4-10.2) mg/dL Phosphorus (2.5-4.5) mg/dL Magnesium (1.6-2.3) mg/dL Total Bilirubin (0.2-1.3) mg/dL AST (17-59) U/L ALT (4-49) U/L Alkaline Phosphatase (38-126) U/L Total Protein (6.3-8.2) g/dL Albumin (3.5-5.0) g/dL Urine Color Light Yellow Urine Appearance Clear (Clear) Urine pH 6.5 (5.0-8.0) Ur Specific Brumley 1.020 (1.001-1.035) Urine Protein 2+ H (Negative) Urine Glucose (UA) 4+ H (Negative) Urine Ketones Negative (Negative) Urine Blood Small H (Negative) Urine Nitrite Negative (Negative) Urine Bilirubin Negative (Negative) Urine Urobilinogen <2.0 (<2.0) mg/dL Ur Leukocyte Esterase Negative (Negative) Urine RBC 6 H (0-5) /hpf Urine WBC <1 (0-5) /hpf Urine Opiates Screen Not Detected (NotDetected) Ur Oxycodone Screen Not Detected (NotDetected) Urine Methadone Screen Not Detected (NotDetected) Ur Propoxyphene Screen Not Detected (NotDetected) Ur Barbiturates Screen Not Detected (NotDetected) U Tricyclic Antidepress Not Detected (NotDetected) Ur Phencyclidine Scrn Not Detected (NotDetected) Ur Amphetamines Screen Not Detected (NotDetected) U Methamphetamines Scrn Not Detected (NotDetected) U Benzodiazepines Scrn Not Detected (NotDetected) Urine Cocaine Screen Not Detected (NotDetected) U Marijuana (THC) Screen Detected H (NotDetected) 03/22/23 Range/Units 08:19 WBC (3.8-10.6) k/uL RBC (4.30-5.90) m/uL Hgb (13.0-17.5) gm/dL Hct (39.0-53.0) % MCV (80.0-100.0) fL MCH (25.0-35.0) pg MCHC (31.0-37.0) g/dL RDW (11.5-15.5) % Plt Count (150-450) k/uL MPV Neutrophils % % Lymphocytes % % Monocytes % % Eosinophils % % Basophils % % Neutrophils # (1.3-7.7) k/uL Lymphocytes # (1.0-4.8) k/uL Monocytes # (0-1.0) k/uL Eosinophils # (0-0.7) k/uL Basophils # (0-0.2) k/uL VBG pH (7.31-7.41) VBG pCO2 (37-51) mmHg VBG HCO3 (24-28) mmol/L Sodium (137-145) mmol/L Potassium (3.5-5.1) mmol/L Chloride (98-107) mmol/L Carbon Dioxide (22-30) mmol/L Anion Gap mmol/L BUN (9-20) mg/dL Creatinine (0.66-1.25) mg/dL Est GFR (CKD-EPI)AfAm (>60 ml/min/1.73 sqM) Est GFR (CKD-EPI)NonAf (>60 ml/min/1.73 sqM) Glucose (74-99) mg/dL POC Glucose (mg/dL) 184 H (70-110) mg/dL POC Glu Integrated Specialist ID Dayana Barkley Calcium (8.4-10.2) mg/dL Phosphorus (2.5-4.5) mg/dL Magnesium (1.6-2.3) mg/dL Total Bilirubin (0.2-1.3) mg/dL AST (17-59) U/L ALT (4-49) U/L Alkaline Phosphatase (38-126) U/L Total Protein (6.3-8.2) g/dL Albumin (3.5-5.0) g/dL Urine Color Urine Appearance (Clear) Urine pH (5.0-8.0) Ur Specific [place]ley (1.001-1.035) Urine Protein (Negative) Urine Glucose (UA) (Negative) Urine Ketones (Negative) Urine Blood (Negative) Urine Nitrite (Negative) Urine Bilirubin (Negative) Urine Urobilinogen (<2.0) mg/dL Ur Leukocyte Esterase (Negative) Urine RBC (0-5) /hpf Urine WBC (0-5) /hpf Urine Opiates Screen (NotDetected) Ur Oxycodone Screen (NotDetected) Urine Methadone Screen (NotDetected) Ur Propoxyphene Screen (NotDetected) Ur Barbiturates Screen (NotDetected) U Tricyclic Antidepress (NotDetected) Ur Phencyclidine Scrn (NotDetected) Ur Amphetamines Screen (NotDetected) U Methamphetamines Scrn (NotDetected) U Benzodiazepines Scrn (NotDetected) Urine Cocaine Screen (NotDetected) U Marijuana (THC) Screen (NotDetected) Disposition Clinical Impression: RLS (restless legs syndrome), DM type 1 (diabetes mellitus, type 1) Disposition: HOME SELF-CARE Instructions (If sedation given, give patient instructions): Restless Legs Syndrome (ED), Diabetes Type 1: Management (ED) Additional Instructions: Return to the emergency department with any new, worsening, or concerning symptoms. Make sure that you are taking your insulin daily as prescribed for management of your blood sugar. You may start taking the Requip as prescribed for management of RLS: Start with 1 tablet (0.25mg) taken 1-3 hours before bedtime. Increase to 2 tablets (0.5mg) after 2 days if needed. Follow up with your primary care provider in 1-2 days. Prescriptions: rOPINIRole HCL [Requip] 0.25 mg PO HS #30 tablet Is patient prescribed a controlled substance at d/c from ED?: No Referrals: None,Stated [Primary Care Provider] - 1-2 days
[2023-03-22 06:41] VITALS: BP 165/86
[2023-03-22 06:45] LABS: ALT 18 U/L (4-49); AST 22 U/L (17-59); African American GFR (CKD) >90 (>60 ml/min/1.73 sqM); Albumin 3.6 g/dL (3.5-5.0); Alkaline Phosphatase 111 U/L (38-126); Anion Gap 10 mmol/L; Blood Urea Nitrogen 17 mg/dL (9-20); Carbon Dioxide 23 mmol/L (22-30); Chloride 101 mmol/L (98-107); Glucose 340 mg/dL (74-99); Magnesium 1.9 mg/dL (1.6-2.3); Non-African American GFR(CKD) 80 (>60 ml/min/1.73 sqM); Phosphorus 4.3 mg/dL (2.5-4.5); Potassium 4.2 mmol/L (3.5-5.1); Sodium 134 mmol/L (137-145); Total Bilirubin 0.5 mg/dL (0.2-1.3); Total Protein 6.8 g/dL (6.3-8.2)
[2023-03-22 06:52] LABS: VBG PH 7.34 (7.31-7.41)
[2023-03-22 07:03] VITALS: PULSE 61; RESP 16
[2023-03-22] MEDS ORDERED: INSULIN REGULAR 100 UNIT/ML VIAL (IV) IV ONE ×3 (07:35→07:40)
[2023-03-22 07:40] LABS: Glucose,Whole Blood 288 mg/dL (70-110)
[2023-03-22 08:20] LABS: Amphetamine Screen,Urine Not Detected (NotDetected); Barbiturate Screen,Urine Not Detected (NotDetected); Benzodiazepines Screen,Urine Not Detected (NotDetected); Cocaine Screen,Urine Not Detected (NotDetected); Methadone Screen, Urine Not Detected (NotDetected); Opiate Screen,Urine Not Detected (NotDetected); Oxycodone Screen, Urine Not Detected (NotDetected); Phencyclidine Screen,Urine Not Detected (NotDetected); Tricyclic Antidepressant,Urine Not Detected (NotDetected); Urn Cannabinoid Scrn Detected (NotDetected)
[2023-03-22 08:22] LABS: Glucose,Whole Blood 184 mg/dL (70-110)
[2023-03-22 08:42] LABS: Appearance,Urine Clear (Clear); Bilirubin,Urine Negative (Negative); Blood,Urine Small (Negative); Color,Urine Light Yellow; Glucose,Urine (UA) 4+ (Negative); Ketones,Urine Negative (Negative); Leukocyte Esterase,Urine Negative (Negative); Nitrite,Urine Negative (Negative); PH, Urine 6.5 (5.0-8.0); Protein,Urine 2+ (Negative); RBC,Urine 6 /hpf (0-5); Urobilinogen,Urine <2.0 mg/dL (<2.0); WBC,Urine <1 /hpf (0-5)
== END 2023-03-22 08:56 | disposition home or self-care (01) ==
LOC: EC 05:49
DX: G25.81 Restless legs syndrome (principal); E10.21 Type 1 diabetes mellitus with diabetic nephropathy; I25.10 Atherosclerotic heart disease of native coronary artery without angina pectoris; I25.2 Old myocardial infarction; F17.200 Nicotine dependence, unspecified, uncomplicated; Z79.899 Other long term (current) drug therapy; Z91.018 Allergy to other foods
CPT/HCPCS: 36415; 80053; 80306; 81001; 82009; 82803; 83735; 84100; 85025; 93005; 96361; 96374; 99285

== ENCOUNTER 2023-04-04 15:10 | Emergency (ER) | payer OTHER ==
[2023-04-04] MEDS ORDERED: ORPHENADRINE 30 MG/ML 2 ML VIAL IM STA (16:20)
[2023-04-04] MEDS ORDERED: DEXAMETHASONE SOD PHOSPHATE 10 MG/ML 1 ML VIAL IM STA (16:20)
[2023-04-04] MEDS ORDERED: KETOROLAC 15 MG/ML 1 ML VIAL IM STA (16:20)
--- NOTE | 2023-04-04 16:26 | ED ---
Back Pain HPI - General Chief Complaint: Back Pain/Injury Stated Complaint: back pain Time Seen by Provider: 04/04/23 16:09 Source: patient Limitations: no limitations - History of Present Illness Initial Comments: 48-year-old male presenting with chief complaint of lower back pain. Patient states the pain is been ongoing for the last 4 months. States that today "I was just tired of feeling the pain". Patient does have bilateral lower extremity numbness due to pre-existing history of neuropathy. No loss of bowel or bladder control or saddle paresthesia. No fevers or chills. No nausea or vomiting. No chest pain or difficulty breathing. No abdominal pain. No dysuria or hematuria. No new injury or trauma. - Related Data Home Medications Medication Instructions Recorded Confirmed Ergocalciferol (Vitamin D2) 1,250 mcg PO MO 02/15/23 02/15/23 [Drisdol (50,000 Iu)] Haloperidol Lactate 100 mg IM QMONTHLY 02/15/23 02/15/23 metFORMIN HCL [Glucophage] 1,000 mg PO BID 02/15/23 02/15/23 Previous Rx's Medication Instructions Recorded Aspirin 81 mg PO DAILY 30 Days #30 tab 02/17/23 Atorvastatin [Lipitor] 20 mg PO DAILY 30 Days #30 tab 02/17/23 Insulin Aspart [NovoLOG Flexpen] 10 units SQ AC-TID 30 Days #1 each 02/17/23 Insulin Glargine,Hum.rec.anlog 50 units SQ HS 30 Days #1 each 02/17/23 [Lantus Solostar Pen] amLODIPine [Norvasc] 10 mg PO DAILY 30 Days #30 tab 02/17/23 rOPINIRole HCL [Requip] 0.25 mg PO HS #30 tablet 03/22/23 Cyclobenzaprine [Flexeril] 10 mg PO TID PRN #15 tab 04/04/23 Allergies Allergy/AdvReac Type Severity Reaction Status Date / Time blue dye AdvReac Rapid Verified 04/04/23 15:51 Heart Rate Review of Systems ROS Statement: Those systems with pertinent positive or pertinent negative responses have been documented in the HPI. ROS Other: All systems not noted in ROS Statement are negative. Past Medical History Past Medical History: Coronary Artery Disease (CAD), Diabetes Mellitus Additional Past Medical History / Comment(s): pt type 1 diabetes pt received 50 uints of levemeir hs Last Myocardial Infarction Date:: 2021 History of Any Multi-Drug Resistant Organisms: None Reported Past Surgical History: Orthopedic Surgery Additional Past Surgical History / Comment(s): Knee surgey 1993 Past Anesthesia/Blood Transfusion Reactions: No Reported Reaction Past Psychological History: Schizophrenia Smoking Status: Current every day smoker Past Alcohol Use History: None Reported, Occasional Past Drug Use History: Cocaine, Marijuana - Past Family History Father Family Medical History: Coronary Artery Disease (CAD) General Exam Limitations: no limitations General appearance: alert, in no apparent distress Head exam: Present: atraumatic, normocephalic, normal inspection Eye exam: Present: normal appearance, EOMI. Absent: scleral icterus, periorbital swelling Neck exam: Present: normal inspection, full ROM Respiratory exam: Present: normal lung sounds bilaterally. Absent: respiratory distress, wheezes, rales, rhonchi, stridor Cardiovascular Exam: Present: regular rate, normal rhythm, normal heart sounds. Absent: systolic murmur, diastolic murmur, rubs, gallop, clicks Back exam: Present: normal inspection Neurological exam: Present: alert, oriented X3, CN II-XII intact Psychiatric exam: Present: normal affect, normal mood Skin exam: Present: warm, dry, intact, normal color. Absent: rash Course Vital Signs 04/04/23 04/04/23 15:48 17:16 Temperature 98.2 F 97.8 F Pulse Rate 75 67 Respiratory 20 18 Rate Blood Pressure 128/84 140/90 O2 Sat by Pulse 99 98 Oximetry Medical Decision Making - Medical Decision Making Was pt. sent in by a medical professional or institution ([facility], WAITER/WAITRESS FIRST CLASS, urgent care, hospital, or half-way...) When possible be specific @ -No Did you speak to anyone other than the patient for history (EMS, parent, family, police, friend...)? What history was obtained from this source @ -No Did you review nursing and triage notes (agree or disagree)? Why? @ -I reviewed and agree with nursing and triage notes Were old charts reviewed (outside hosp., previous admission, EMS record, old EKG, old radiological studies, urgent care reports/EKG's, half-way records)? Report findings @ -No old charts were reviewed Differential Diagnosis (chest pain, altered mental status, abdominal pain women, abdominal pain men, vaginal bleeding, weakness, fever, dyspnea, syncope, headache, dizziness, GI bleed, back pain, seizure, CVA, palpatations, mental health, musculoskeletal)? @ - MDM Differential Back Pain: Strain, zoster, cauda equina syndrome, epidural abscess, vertebral osteomyelitis, discitis, fracture, subluxation, disc herniation, DJD, spinal stenosis, dissection, AAA, pancreatitis, peptic ulcer disease, pyelonephritis, kidney stone this is not meant to be an all-inclusive list. EKG interpreted by me (3pts min.). @ -As above X-rays interpreted by me (1pt min.). @ -None done CT interpreted by me (1pt min.). @ -None done U/S interpreted by me (1pt. min.). @ -None done What testing was considered but not performed or refused? (CT, X-rays, U/S, labs)? Why? @ -None What meds were considered but not given or refused? Why? @ -None Did you discuss the management of the patient with other professionals (professionals i.e. , PA, WAITER/WAITRESS FIRST CLASS, lab, RT, psych nurse, social services technician, floor refinisher, teacher, chairman and chief executive officer, rn case manager)? Give summary @ -No Was smoking cessation discussed for >3mins.? @ -No Was critical care preformed (if so, how long)? @ -No Were there social determinants of health that impacted care today? How? (Homelessness, low income, unemployed, alcoholism, drug addiction, transportation, low edu. Level, literacy, decrease access to med. care, prison, rehab)? @ -No Was there de-escalation of care discussed even if they declined (Discuss DNR or withdrawal of care, Hospice)? DNR status @ -No What co-morbidities impacted this encounter? (DM, HTN, Smoking, COPD, CAD, Cancer, CVA, ARF, Chemo, Hep., AIDS, mental health diagnosis, sleep apnea, morbid obesity)? @ -None Was patient admitted / discharged? Hospital course, mention meds given and route, prescriptions, significant lab abnormalities, going to OR and other pertinent info. @ -48-year-old male presenting with chief complaint of chronic lower back pain. No new injury or trauma. No red flag symptoms. Physical examination is unremarkable. Patient was treated with Norflex, Toradol, Decadron, and lidocaine patch. On reassessment he reports improvement in his symptoms. He'll be discharged with cyclobenzaprine and educated on supportive management at home. Provided with a suggestion for PCP to follow up with. Follow-up with PCP. Report back to ER with any new or worsening symptoms. Discussed return parameters and answered all questions. Patient conveyed verbal understanding and agreed to the plan. I discussed this case in detail with my attending Dr. Fatima Undiagnosed new problem with uncertain prognosis? @ -No Drug Therapy requiring intensive monitoring for toxicity (Heparin, Nitro, Insulin, Cardizem)? @ -No Were any procedures done? @ -No Diagnosis/symptom? @ -Back pain Acute, or Chronic, or Acute on Chronic? @ -Acute on chronic Uncomplicated (without systemic symptoms) or Complicated (systemic symptoms)? @ -Uncomplicated Side effects of treatment? @ -No Exacerbation, Progression, or Severe Exacerbation? @ -No Poses a threat to life or bodily function? How? (Chest pain, [place], [place], pneumonia, PE, COPD, DKA, ARF, appy, cholecystitis, CVA, Diverticulitis, Homicidal, Suicidal, threat to staff... and all critical care pts) @ -No Disposition Clinical Impression: Mechanical back pain Disposition: HOME SELF-CARE Condition: Good Instructions (If sedation given, give patient instructions): Chronic Back Pain (DC), Lower Back Exercises (ED) Additional Instructions: Follow-up with PCP, a suggestion has been provided for you. Report back to ER with any new or worsening symptoms. Take Motrin and Tylenol as needed for pain control. Take medication as prescribed, do not take cyclobenzaprine before driving or operating heavy machinery as it may cause drowsiness. Prescriptions: Cyclobenzaprine [Flexeril] 10 mg PO TID PRN #15 tab PRN Reason: Spasms Is patient prescribed a controlled substance at d/c from ED?: No Referrals: None,Stated [Primary Care Provider] - 1-2 days Time of Disposition: 17:01
[2023-04-04] MEDS ORDERED: LIDOCAINE 5% PATCH TOPICAL SCH (16:30)
[2023-04-04 17:18] VITALS: BP 140/90; PULSE 67; RESP 18; TEMP 97.8
== END 2023-04-04 17:46 | disposition home or self-care (01) ==
LOC: EC 15:10
DX: M54.50 Low back pain, unspecified (principal); E10.9 Type 1 diabetes mellitus without complications; I25.10 Atherosclerotic heart disease of native coronary artery without angina pectoris; I25.2 Old myocardial infarction; F20.9 Schizophrenia, unspecified; F17.200 Nicotine dependence, unspecified, uncomplicated; F12.90 Cannabis use, unspecified, uncomplicated; F14.90 Cocaine use, unspecified, uncomplicated; Z79.899 Other long term (current) drug therapy; Z91.041 Radiographic dye allergy status
CPT/HCPCS: 99283; 96372 ×3; J1100; J2360; J1885

== ENCOUNTER 2023-05-08 03:09 | Emergency (ER) | payer OTHER ==
[2023-05-08 03:16] VITALS: RESP 18
--- NOTE | 2023-05-08 03:33 | ED ---
General Adult HPI - General Chief complaint: Back Pain/Injury Stated complaint: Kidney Pain Time Seen by Provider: 05/08/23 03:18 Source: patient Mode of arrival: ambulatory Limitations: no limitations - History of Present Illness Initial comments: Dictation was produced using [employer] dictation software. please excuse any grammatical, word or spelling errors. Chief Complaint: 48-year-old male presents with low back pain History of Present Illness: Is a 48-year-old male presents emergency department for several hours of lower back pain. Patient states that the pain is to his bilateral lower back. He states that he has a history of kidney scarring. Patient states that pain is not related to his groin. No nausea or vomiting. Denies any lower extremity symptoms. Denies any trauma. Patient reports that his pain is exacerbated when lying down. Denies any saddle anesthesia The ROS documented in this emergency department record has been reviewed and confirmed by me. Those systems with pertinent positive or negative responses have been documented in the HPI. All other systems are other negative and/or noncontributory. - Related Data Home Medications Medication Instructions Recorded Confirmed Ergocalciferol (Vitamin D2) 1,250 mcg PO MO 02/15/23 02/15/23 [Drisdol (50,000 Iu)] Haloperidol Lactate 100 mg IM QMONTHLY 02/15/23 02/15/23 metFORMIN HCL [Glucophage] 1,000 mg PO BID 02/15/23 02/15/23 Previous Rx's Medication Instructions Recorded Aspirin 81 mg PO DAILY 30 Days #30 tab 02/17/23 Atorvastatin [Lipitor] 20 mg PO DAILY 30 Days #30 tab 02/17/23 Insulin Aspart [NovoLOG Flexpen] 10 units SQ AC-TID 30 Days #1 each 02/17/23 Insulin Glargine,Hum.rec.anlog 50 units SQ HS 30 Days #1 each 02/17/23 [Lantus Solostar Pen] amLODIPine [Norvasc] 10 mg PO DAILY 30 Days #30 tab 02/17/23 rOPINIRole HCL [Requip] 0.25 mg PO HS #30 tablet 03/22/23 Cyclobenzaprine [Flexeril] 10 mg PO TID PRN #15 tab 04/04/23 Allergies Allergy/AdvReac Type Severity Reaction Status Date / Time blue dye AdvReac Rapid Verified 05/08/23 03:12 Heart Rate Review of Systems ROS Statement: Those systems with pertinent positive or pertinent negative responses have been documented in the HPI. ROS Other: All systems not noted in ROS Statement are negative. Past Medical History Past Medical History: Coronary Artery Disease (CAD), Diabetes Mellitus Additional Past Medical History / Comment(s): pt type 1 diabetes Last Myocardial Infarction Date:: 2021 History of Any Multi-Drug Resistant Organisms: None Reported Past Surgical History: Orthopedic Surgery Additional Past Surgical History / Comment(s): Knee surgey 1993 Past Anesthesia/Blood Transfusion Reactions: No Reported Reaction Past Psychological History: Schizophrenia Smoking Status: Current every day smoker Past Alcohol Use History: None Reported, Occasional Past Drug Use History: Cocaine, Marijuana - Past Family History Father Family Medical History: Coronary Artery Disease (CAD) General Exam - General Exam Comments Initial Comments: PHYSICAL EXAM: General Impression: Alert and oriented x3, not in acute distress HEENT: Normocephalic atraumatic, extra-ocular movements intact, pupils equal and reactive to light bilaterally, mucous membranes moist. Cardiovascular: Heart regular rate and rhythm Chest: Able to complete full sentences, no retractions, no tachypnea Abdomen: abdomen soft, non-tender, non-distended, no organomegaly Musculoskeletal: Pulses present and equal in all extremities, no peripheral edema Motor: no focal deficits noted Neurological: CN II-XII grossly intact, no focal motor or sensory deficits noted Skin: Intact with no visualized rashes Psych: Normal affect and mood Limitations: no limitations Course Vital Signs 05/08/23 03:12 Temperature 98.5 F Pulse Rate 85 Respiratory 18 Rate Blood Pressure 175/103 O2 Sat by Pulse 98 Oximetry Medical Decision Making - Medical Decision Making Was pt. sent in by a medical professional or institution (, PA, TRANSFER IRON OPERATOR, urgent care, hospital, or shelter...) When possible be specific @ -No Did you speak to anyone other than the patient for history (EMS, parent, family, police, friend...)? What history was obtained from this source @ -No Did you review nursing and triage notes (agree or disagree)? Why? @ -I reviewed and agree with nursing and triage notes Were old charts reviewed (outside hosp., previous admission, EMS record, old EKG, old radiological studies, urgent care reports/EKG's, shelter records)? Report findings @ -No old charts were reviewed Differential Diagnosis (chest pain, altered mental status, abdominal pain women, abdominal pain men, vaginal bleeding, musculoskeletal, weakness, fever, dyspnea, syncope, headache, dizziness, GI bleed, back pain, seizure, CVA, palpatations, mental health)? @ -Differential Back Pain: Strain, zoster, cauda equina syndrome, epidural abscess, vertebral oste omyelitis, discitis, fracture, subluxation, disc herniation, DJD, spinal stenosis, dissection, AAA, pancreatitis, peptic ulcer disease, pyelonephritis, kidney stone, this is not meant to be an all-inclusive list. EKG interpreted by me (3pts min.). @ -None done X-rays interpreted by me (1pt min.). @ -None done CT interpreted by me (1pt min.). @ -None done U/S interpreted by me (1pt. min.). @ -None done What testing was considered but not performed or refused? (CT, X-rays, U/S, labs)? Why? @ -None What meds were considered but not given or refused? Why? @ -None Did you discuss the management of the patient with other professionals (professionals i.e. , PA, TRANSFER IRON OPERATOR, lab, RT, psych nurse, social work lecturer, associate financial planner, teacher, wildlife officer, returned case inspector)? Give summary @ -No Was smoking cessation discussed for >3mins.? @ -No Was critical care preformed (if so, how long)? @ -No Were there social determinants of health that impacted care today? How? (Homelessness, low income, unemployed, alcoholism, drug addiction, transportation, low edu. Level, literacy, decrease access to med. care, nursing home, rehab)? @ -No Was there de-escalation of care discussed even if they declined (Discuss DNR or withdrawal of care, Hospice)? DNR status @ -No What co-morbidities impacted this encounter? (DM, HTN, Smoking, COPD, CAD, Cancer, CVA, ARF, Chemo, Hep., AIDS, mental health diagnosis, sleep apnea, morbid obesity)? @ -None Was patient admitted / discharged? Hospital course, mention meds given and route, prescriptions, significant lab abnormalities, going to OR and other pertinent info. @ -48-year-old male presents emergency Department with back pain. Patient according to recent documentation from prior visits states that he's been having ongoing back pain for the last 4 months. Pain is acute on chronic. Vital signs are stable. Patient has no high-risk features. Laboratory evaluation obtained showing no acute processes. Patient told that he is hyperglycemic. He states that he can manage his hyperglycemia on his own. Patient discharged. Clinical presentation consistent with back strain Undiagnosed new problem with uncertain prognosis? @ -No Drug Therapy requiring intensive monitoring for toxicity (Heparin, Nitro, Insulin, Cardizem)? @ -No Were any procedures done? @ -No Diagnosis/symptom? Acute, or Chronic, or Acute on Chronic? Uncomplicated (without systemic symptoms) or Complicated (systemic symptoms)? @ -1. Back strain Side effects of treatment? @ -No Exacerbation, Progression, or Severe Exacerbation? @ -No Poses a threat to life or bodily function? How? (Chest pain, [place], [place], pneumonia, PE, COPD, DKA, ARF, appy, cholecystitis, CVA, Diverticulitis, Homicidal, Suicidal, threat to staff... and all critical care pts) @ -No - Lab Data Result diagrams: 05/08/23 04:03 05/08/23 04:03 Lab Results 05/08/23 05/08/23 05/08/23 Range/Units 04:03 04:03 04:39 WBC 7.6 (3.8-10.6) k/uL RBC 5.24 (4.30-5.90) m/uL Hgb 15.4 (13.0-17.5) gm/dL Hct 47.1 (39.0-53.0) % MCV 89.8 (80.0-100.0) fL MCH 29.4 (25.0-35.0) pg MCHC 32.8 (31.0-37.0) g/dL RDW 13.2 (11.5-15.5) % Plt Count 214 (150-450) k/uL MPV 9.6 Neutrophils % 55 % Lymphocytes % 34 % Monocytes % 6 % Eosinophils % 3 % Basophils % 0 % Neutrophils # 4.2 (1.3-7.7) k/uL Lymphocytes # 2.6 (1.0-4.8) k/uL Monocytes # 0.4 (0-1.0) k/uL Eosinophils # 0.2 (0-0.7) k/uL Basophils # 0.0 (0-0.2) k/uL Sodium 131 L (137-145) mmol/L Potassium 4.4 (3.5-5.1) mmol/L Chloride 102 (98-107) mmol/L Carbon Dioxide 21 L (22-30) mmol/L Anion Gap 8 mmol/L BUN 20 (9-20) mg/dL Creatinine 1.11 (0.66-1.25) mg/dL Est GFR (CKD-EPI)AfAm >90 (>60 ml/min/1.73 sqM) Est GFR (CKD-EPI)NonAf 79 (>60 ml/min/1.73 sqM) Glucose 448 H (74-99) mg/dL Calcium 9.0 (8.4-10.2) mg/dL Urine Color Light Yellow Urine Appearance Clear (Clear) Urine pH 5.5 (5.0-8.0) Ur Specific [place] 1.026 (1.001-1.035) Urine Protein 3+ H (Negative) Urine Glucose (UA) 4+ H (Negative) Urine Ketones Negative (Negative) Urine Blood Small H (Negative) Urine Nitrite Negative (Negative) Urine Bilirubin Negative (Negative) Urine Urobilinogen <2.0 (<2.0) mg/dL Ur Leukocyte Esterase Negative (Negative) Urine RBC 4 (0-5) /hpf Urine WBC 1 (0-5) /hpf Disposition Clinical Impression: Back strain, Hyperglycemia Disposition: HOME SELF-CARE Condition: Good Instructions (If sedation given, give patient instructions): Acute Low Back Pain (ED) Is patient prescribed a controlled substance at d/c from ED?: No Referrals: None,Stated [Primary Care Provider] - 1-2 days Time of Disposition: 05:01
[2023-05-08 04:24] LABS: Basophils % (A) 0 %; Eosinophils # (A) 0.2 k/uL (0-0.7); Eosinophils % (A) 3 %; HCT 47.1 % (39.0-53.0); HGB 15.4 gm/dL (13.0-17.5); Lymphocytes # (A) 2.6 k/uL (1.0-4.8); Lymphocytes % (A) 34 %; MCH 29.4 pg (25.0-35.0); MCHC 32.8 g/dL (31.0-37.0); MCV 89.8 fL (80.0-100.0); Mean Platelet Volume 9.6; Monocytes # (A) 0.4 k/uL (0-1.0); Monocytes % (A) 6 %; Neutrophils # (A) 4.2 k/uL (1.3-7.7); Neutrophils % (A) 55 %; Platelet Count 214 k/uL (150-450); RBC 5.24 m/uL (4.30-5.90); RDW 13.2 % (11.5-15.5); WBC 7.6 k/uL (3.8-10.6)
[2023-05-08 04:31] LABS: African American GFR (CKD) >90 (>60 ml/min/1.73 sqM); Anion Gap 8 mmol/L; Blood Urea Nitrogen 20 mg/dL (9-20); Carbon Dioxide 21 mmol/L (22-30); Chloride 102 mmol/L (98-107); Glucose 448 mg/dL (74-99); Non-African American GFR(CKD) 79 (>60 ml/min/1.73 sqM); Potassium 4.4 mmol/L (3.5-5.1); Sodium 131 mmol/L (137-145)
[2023-05-08 04:46] LABS: Appearance,Urine Clear (Clear); Bilirubin,Urine Negative (Negative); Blood,Urine Small (Negative); Color,Urine Light Yellow; Glucose,Urine (UA) 4+ (Negative); Ketones,Urine Negative (Negative); Leukocyte Esterase,Urine Negative (Negative); Nitrite,Urine Negative (Negative); PH, Urine 5.5 (5.0-8.0); Protein,Urine 3+ (Negative); RBC,Urine 4 /hpf (0-5); Specific Gravity,Urine 1.026 (1.001-1.035); Urobilinogen,Urine <2.0 mg/dL (<2.0); WBC,Urine 1 /hpf (0-5)
[2023-05-08 05:20] VITALS: BP 152/105; PULSE 81; TEMP 98.7
== END 2023-05-08 05:19 | disposition home or self-care (01) ==
LOC: EC 03:09
DX: S39.012A Strain of muscle, fascia and tendon of lower back, initial encounter (principal); E10.65 Type 1 diabetes mellitus with hyperglycemia; I25.10 Atherosclerotic heart disease of native coronary artery without angina pectoris; I25.2 Old myocardial infarction; F17.200 Nicotine dependence, unspecified, uncomplicated; Z88.8 Allergy status to other drugs, medicaments and biological substances; Z79.84 Long term (current) use of oral hypoglycemic drugs; Z79.899 Other long term (current) drug therapy; X58.XXXA Exposure to other specified factors, initial encounter
CPT/HCPCS: 36415; 80048; 81001; 85025; 99283

== ENCOUNTER 2023-05-10 21:56 | Observation (INO) | payer OTHER ==
[2023-05-10] MEDS ORDERED: SODIUM CHLORIDE 0.9% 1,000 ML IV ONE (22:12)
[2023-05-10] MEDS ORDERED: ACETAMINOPHEN TAB 500 MG TAB PO STA (22:12)
[2023-05-10 22:46] LABS: Basophils % (A) 0 %; Eosinophils # (A) 0.2 k/uL (0-0.7); Eosinophils % (A) 2 %; HCT 51.7 % (39.0-53.0); HGB 17.9 gm/dL (13.0-17.5); Lymphocytes # (A) 0.6 k/uL (1.0-4.8); Lymphocytes % (A) 5 %; MCH 31.2 pg (25.0-35.0); MCHC 34.7 g/dL (31.0-37.0); Mean Platelet Volume 9.3; Monocytes # (A) 0.2 k/uL (0-1.0); Monocytes % (A) 1 %; Neutrophils % (A) 91 %; Platelet Count 213 k/uL (150-450); RBC 5.74 m/uL (4.30-5.90); RDW 13.1 % (11.5-15.5); WBC 12.1 k/uL (3.8-10.6)
[2023-05-10 22:55] LABS: ALT 20 U/L (4-49); AST 22 U/L (17-59); African American GFR (CKD) 87 (>60 ml/min/1.73 sqM); Albumin 3.9 g/dL (3.5-5.0); Alkaline Phosphatase 153 U/L (38-126); Anion Gap 10 mmol/L; Blood Urea Nitrogen 20 mg/dL (9-20); Calcium 9.2 mg/dL (8.4-10.2); Carbon Dioxide 22 mmol/L (22-30); Chloride 101 mmol/L (98-107); Glucose 393 mg/dL (74-99); Non-African American GFR(CKD) 75 (>60 ml/min/1.73 sqM); Potassium 4.3 mmol/L (3.5-5.1); Sodium 133 mmol/L (137-145); Total Bilirubin 0.7 mg/dL (0.2-1.3); Total Protein 7.5 g/dL (6.3-8.2)
--- NOTE | 2023-05-10 23:19 | ED ---
General Adult HPI - General Chief complaint: Dizziness Stated complaint: Dizziness Time Seen by Provider: 05/10/23 22:08 Source: patient, RN notes reviewed, old records reviewed Mode of arrival: ambulatory Limitations: no limitations - History of Present Illness Initial comments: 48-year-old male history of diabetes presenting for evaluation of fever, cough, congestion. Patient is also complaining of lightheadedness. Symptoms have been present for the past 24 hours. Patient denies known sick contacts. He denies significant vomiting or diarrhea. No central chest pain. He states his blood sugars have been quite high. - Related Data Home Medications Medication Instructions Recorded Confirmed Ergocalciferol (Vitamin D2) 1,250 mcg PO MO 02/15/23 02/15/23 [Drisdol (50,000 Iu)] Haloperidol Lactate 100 mg IM QMONTHLY 02/15/23 02/15/23 metFORMIN HCL [Glucophage] 1,000 mg PO BID 02/15/23 02/15/23 Previous Rx's Medication Instructions Recorded Aspirin 81 mg PO DAILY 30 Days #30 tab 02/17/23 Atorvastatin [Lipitor] 20 mg PO DAILY 30 Days #30 tab 02/17/23 Insulin Aspart [NovoLOG Flexpen] 10 units SQ AC-TID 30 Days #1 each 02/17/23 Insulin Glargine,Hum.rec.anlog 50 units SQ HS 30 Days #1 each 02/17/23 [Lantus Solostar Pen] amLODIPine [Norvasc] 10 mg PO DAILY 30 Days #30 tab 02/17/23 rOPINIRole HCL [Requip] 0.25 mg PO HS #30 tablet 03/22/23 Cyclobenzaprine [Flexeril] 10 mg PO TID PRN #15 tab 04/04/23 Allergies Allergy/AdvReac Type Severity Reaction Status Date / Time blue dye AdvReac Rapid Verified 05/08/23 03:12 Heart Rate Review of Systems ROS Statement: Those systems with pertinent positive or pertinent negative responses have been documented in the HPI. ROS Other: All systems not noted in ROS Statement are negative. Past Medical History Past Medical History: Coronary Artery Disease (CAD), Diabetes Mellitus Additional Past Medical History / Comment(s): pt type 1 diabetes Last Myocardial Infarction Date:: 2021 History of Any Multi-Drug Resistant Organisms: None Reported Past Surgical History: Orthopedic Surgery Additional Past Surgical History / Comment(s): Knee surgey 1993 Past Anesthesia/Blood Transfusion Reactions: No Reported Reaction Past Psychological History: Schizophrenia Smoking Status: Current every day smoker Past Alcohol Use History: None Reported, Occasional Past Drug Use History: Cocaine, Marijuana - Past Family History Father Family Medical History: Coronary Artery Disease (CAD) General Exam Limitations: no limitations General appearance: alert, in no apparent distress Head exam: Present: atraumatic, normocephalic Eye exam: Present: normal appearance, PERRL ENT exam: Present: mucous membranes dry Neck exam: Present: normal inspection. Absent: tenderness, meningismus Respiratory exam: Present: normal lung sounds bilaterally. Absent: respiratory distress, wheezes Cardiovascular Exam: Present: regular rate, normal rhythm GI/Abdominal exam: Present: soft. Absent: distended, tenderness Extremities exam: Present: normal inspection, normal capillary refill. Absent: pedal edema Neurological exam: Present: alert, oriented X3 Psychiatric exam: Present: normal affect, normal mood Course Vital Signs 05/10/23 22:02 Temperature 100.1 F H Pulse Rate 105 H Respiratory 20 Rate Blood Pressure 159/94 O2 Sat by Pulse 100 Oximetry Medical Decision Making - Medical Decision Making Was pt. sent in by a medical professional or institution ([facility], HOUSEHOLD WORKER, urgent care, hospital, or group home...) When possible be specific @ -No Did you speak to anyone other than the patient for history (EMS, parent, family, police, friend...)? What history was obtained from this source @ -No Did you review nursing and triage notes (agree or disagree)? Why? @ -I reviewed and agree with nursing and triage notes Were old charts reviewed (outside hosp., previous admission, EMS record, old EKG, old radiological studies, urgent care reports/EKG's, group home records)? Report findings @ -No old charts were reviewed Differential Diagnosis (chest pain, altered mental status, abdominal pain women, abdominal pain men, vaginal bleeding, weakness, fever, dyspnea, syncope, headache, dizziness, GI bleed, back pain, seizure, CVA, palpatations, mental health, musculoskeletal)? @ Differential Weakness: Hypoglycemia, shock, sepsis, hyponatremia, anemia, infection, MN, ETOH, adverse medicine reaction, overdose, stroke, this is not meant to be an all-inclusive list. EKG interpreted by me (3pts min.). @ -As above X-rays interpreted by me (1pt min.). @ No focal pneumonia or acute findings. Chest x-ray CT interpreted by me (1pt min.). @ -None done U/S interpreted by me (1pt. min.). @ -None done What testing was considered but not performed or refused? (CT, X-rays, U/S, labs)? Why? @ -None What meds were considered but not given or refused? Why? @ -None Did you discuss the management of the patient with other professionals (professionals i.e. DrJ Carlos, PA, HOUSEHOLD WORKER, lab, RT, psych nurse, home health care social worker, acid loader, teacher, correction officer reformatory, case preparer and liner)? Give summary @ [facility] Was smoking cessation discussed for >3mins.? @ -No Was critical care preformed (if so, how long)? @ -No Were there social determinants of health that impacted care today? How? (Homelessness, low income, unemployed, alcoholism, drug addiction, transportation, low edu. Level, literacy, decrease access to med. care, long term, rehab)? @ -No Was there de-escalation of care discussed even if they declined (Discuss DNR or withdrawal of care, Hospice)? DNR status @ -No What co-morbidities impacted this encounter? (DM, HTN, Smoking, COPD, CAD, Can cer, CVA, ARF, Chemo, Hep., AIDS, mental health diagnosis, sleep apnea, morbid obesity)? @ -[Diabetes Was patient admitted / discharged? Hospital course, mention meds given and route, prescriptions, significant lab abnormalities, going to OR and other pertinent info. @ -[28-year-old male history diabetes presenting with lightheadedness, fever, URI symptoms. Viral testing is negative. He has mild leukocytosis at 12. His blood glucose is 400. Urinalysis is negative for infection. Chest x-ray negative for pneumonia. Patient has fever which is likely from viral origin, with dehydration and hyperglycemia. He will benefit from IV hydration and monitoring. He'll be observed overnight to internal medicine. Undiagnosed new problem with uncertain prognosis? @ -No Drug Therapy requiring intensive monitoring for toxicity (Heparin, Nitro, Insulin, Cardizem)? @ -No Were any procedures done? @ -No Diagnosis/symptom? @ Fever, dehydration, hyperglycemia Acute, or Chronic, or Acute on Chronic? @ -[Acute Uncomplicated (without systemic symptoms) or Complicated (systemic symptoms)? @ -default Side effects of treatment? @ -No Exacerbation, Progression, or Severe Exacerbation? @ -No Poses a threat to life or bodily function? How? (Chest pain, USA, MN, pneumonia, PE, COPD, DKA, ARF, appy, cholecystitis, CVA, Diverticulitis, Homicidal, Suicidal, threat to staff... and all critical care pts) @ -[Low risk at this time - Lab Data Result diagrams: 05/10/23 22:27 05/10/23 22:27 Lab Results 05/10/23 05/10/23 05/10/23 Range/Units 22: 22: 22: WBC 12.1 H (3.8-10.6) k/uL RBC 5.74 (4.30-5.90) m/uL Hgb 17.9 H (13.0-17.5) gm/dL Hct 51.7 (39.0-53.0) % MCV 90.0 (80.0-100.0) fL MCH 31.2 (25.0-35.0) pg MCHC 34.7 (31.0-37.0) g/dL RDW 13.1 (11.5-15.5) % Plt Count 213 (150-450) k/uL MPV 9.3 Neutrophils % 91 % Lymphocytes % 5 % Monocytes % 1 % Eosinophils % 2 % Basophils % 0 % Neutrophils # 11.0 H (1.3-7.7) k/uL Lymphocytes # 0.6 L (1.0-4.8) k/uL Monocytes # 0.2 (0-1.0) k/uL Eosinophils # 0.2 (0-0.7) k/uL Basophils # 0.0 (0-0.2) k/uL Sodium 133 L (137-145) mmol/L Potassium 4.3 (3.5-5.1) mmol/L Chloride 101 (98-107) mmol/L Carbon Dioxide 22 (22-30) mmol/L Anion Gap 10 mmol/L BUN 20 (9-20) mg/dL Creatinine 1.16 (0.66-1.25) mg/dL Est GFR (CKD-EPI)AfAm 87 (>60 ml/min/1.73 sqM) Est GFR (CKD-EPI)NonAf 75 (>60 ml/min/1.73 sqM) Glucose 393 H (74-99) mg/dL Plasma Lactic Acid Alirio (0.7-2.0) mmol/L Calcium 9.2 (8.4-10.2) mg/dL Total Bilirubin 0.7 (0.2-1.3) mg/dL AST 22 (17-59) U/L ALT 20 (4-49) U/L Alkaline Phosphatase 153 H (38-126) U/L Total Protein 7.5 (6.3-8.2) g/dL Albumin 3.9 (3.5-5.0) g/dL Urine Color Light Yellow Urine Appearance Clear (Clear) Urine pH 5.5 (5.0-8.0) Ur Specific [place] 1.024 (1.001-1.035) Urine Protein 3+ H (Negative) Urine Glucose (UA) 4+ H (Negative) Urine Ketones Trace H (Negative) Urine Blood Small H (Negative) Urine Nitrite Negative (Negative) Urine Bilirubin Negative (Negative) Urine Urobilinogen <2.0 (<2.0) mg/dL Ur Leukocyte Esterase Negative (Negative) Urine RBC 2 (0-5) /hpf Urine WBC <1 (0-5) /hpf Hyaline Casts 3 H (0-2) /lpf Urine Mucus Rare H (None) /hpf Influenza Type A (PCR) (Not Detectd) Influenza Type B (PCR) (Not Detectd) RSV (PCR) (Not Detectd) SARS-CoV-2 (PCR) (Not Detectd) 05/10/23 05/10/23 Range/Units 22:27 22:27 WBC (3.8-10.6) k/uL RBC (4.30-5.90) m/uL Hgb (13.0-17.5) gm/dL Hct (39.0-53.0) % MCV (80.0-100.0) fL MCH (25.0-35.0) pg MCHC (31.0-37.0) g/dL RDW (11.5-15.5) % Plt Count (150-450) k/uL MPV Neutrophils % % Lymphocytes % % Monocytes % % Eosinophils % % Basophils % % Neutrophils # (1.3-7.7) k/uL Lymphocytes # (1.0-4.8) k/uL Monocytes # (0-1.0) k/uL Eosinophils # (0-0.7) k/uL Basophils # (0-0.2) k/uL Sodium (137-145) mmol/L Potassium (3.5-5.1) mmol/L Chloride (98-107) mmol/L Carbon Dioxide (22-30) mmol/L Anion Gap mmol/L BUN (9-20) mg/dL Creatinine (0.66-1.25) mg/dL Est GFR (CKD-EPI)AfAm (>60 ml/min/1.73 sqM) Est GFR (CKD-EPI)NonAf (>60 ml/min/1.73 sqM) Glucose (74-99) mg/dL Plasma Lactic Acid Alirio 2.7 H* (0.7-2.0) mmol/L Calcium (8.4-10.2) mg/dL Total Bilirubin (0.2-1.3) mg/dL AST (17-59) U/L ALT (4-49) U/L Alkaline Phosphatase (38-126) U/L Total Protein (6.3-8.2) g/dL Albumin (3.5-5.0) g/dL Urine Color Urine Appearance (Clear) Urine pH (5.0-8.0) Ur Specific [place] (1.001-1.035) Urine Protein (Negative) Urine Glucose (UA) (Negative) Urine Ketones (Negative) Urine Blood (Negative) Urine Nitrite (Negative) Urine Bilirubin (Negative) Urine Urobilinogen (<2.0) mg/dL Ur Leukocyte Esterase (Negative) Urine RBC (0-5) /hpf Urine WBC (0-5) /hpf Hyaline Casts (0-2) /lpf Urine Mucus (None) /hpf Influenza Type A (PCR) Not Detected (Not Detectd) Influenza Type B (PCR) Not Detected (Not Detectd) RSV (PCR) Not Detected (Not Detectd) SARS-CoV-2 (PCR) Not Detected (Not Detectd) Disposition Clinical Impression: Dehydration, Hyperglycemia, Fever Disposition: ADMITTED IP TO THIS HOSP Condition: Stable Is patient prescribed a controlled substance at d/c from ED?: No Referrals: None,Stated [Primary Care Provider] - 1-2 days Time of Disposition: 00:18
[2023-05-10 23:45] LABS: Appearance,Urine Clear (Clear); Bilirubin,Urine Negative (Negative); Blood,Urine Small (Negative); Color,Urine Light Yellow; Glucose,Urine (UA) 4+ (Negative); Hyaline Casts,Urine 3 /lpf (0-2); Ketones,Urine Trace (Negative); Leukocyte Esterase,Urine Negative (Negative); Mucus,Urine Rare /hpf; Nitrite,Urine Negative (Negative); PH, Urine 5.5 (5.0-8.0); Protein,Urine 3+ (Negative); RBC,Urine 2 /hpf (0-5); Specific Gravity,Urine 1.024 (1.001-1.035); Urobilinogen,Urine <2.0 mg/dL (<2.0); WBC,Urine <1 /hpf (0-5)
--- NOTE | 2023-05-10 23:58 | XR ---
EXAM: XR Chest, 2 Views CLINICAL HISTORY: ITS.REASON XR Reason: fever TECHNIQUE: Frontal and lateral views of the chest. COMPARISON: No relevant prior studies available. FINDINGS: Lungs: Unremarkable. No consolidation. Pleural space: Unremarkable. No pneumothorax. Heart: Unremarkable. No cardiomegaly. Mediastinum: Unremarkable. Bones/joints: Unremarkable. IMPRESSION: Normal chest x-rays.
[2023-05-11] MEDS ORDERED: NALOXONE 0.4 MG/ML 1 ML VIAL IV PRN (00:14)
[2023-05-11] MEDS ORDERED: DEXTROSE 50% SYRINGE 50 ML IVP PRN ×2 (00:15)
[2023-05-11 00:28] LABS: Glucose,Whole Blood 361 mg/dL (70-110)
[2023-05-11] MEDS: SODIUM CHLORIDE 0.9% 1,000 ML IV SCH ×3 (00:51→20:06)
[2023-05-11 05:58] LABS: Glucose,Whole Blood 295 mg/dL (70-110)
[2023-05-11] MEDS: INSULIN ASPART (NovoLOG) 100 UNIT/ML VIAL SQ SCH ×4 (06:37→20:15)
[2023-05-11] MEDS: ACETAMINOPHEN TAB 325 MG TAB PO PRN ×2 (08:48→17:48)
[2023-05-11 12:04] LABS: Glucose,Whole Blood 273 mg/dL (70-110)
--- NOTE | 2023-05-11 15:39 | P.HPIM ---
History of Present Illness H&P Date: 05/11/23 History of present illness; patient is a 48-year-old gentleman with past medical history significant for diabetes mellitus, hyperlipidemia who presented to The ER because of fever, cough and congestion. Patient stated that he was all right one day back he started noticing that he was having fevers at home, also complaining of cough is productive and complaining of nasal congestion. Denies any shortness of breath. Denies any palpitations. Denies any chest pain.patient blood sugars were also running high. Because of this fever and cough patient came to the ER Initial lab work done in the ER showed WBC 12.1, hemoglobin 17.9, platelet count 213, sodium 1:30, potassium 4.3, BUN 20 1.16, glucose 393, Chest x-ray done in the ER showed normal chest x-ray Patient was admitted to medicine service REVIEW OF SYSTEMS: CONSTITUTIONAL: As mentioned in HPI HEENT: No recent visual problems or hearing problems. Denied any sore throat. CARDIOVASCULAR: No chest pain, orthopnea, PND, no palpitations, no syncope. PULMONARY: as mentioned in HPI GASTROINTESTINAL: No diarrhea, no nausea, no vomiting, no abdominal pain. NEUROLOGICAL: No headaches, no weakness, no numbness. HEMATOLOGICAL: Denies any bleeding or petechiae. GENITOURINARY: Denies any burning micturition, frequency, or urgency. MUSCULOSKELETAL/RHEUMATOLOGICAL: Denies any joint pain, swelling, or any muscle pain. ENDOCRINE: Denies any polyuria or polydipsia. The rest of the 14-point review of systems is negative. PHYSICAL EXAMINATION: GENERAL: The patient is alert and oriented x3, not in any acute distress. Well developed, well nourished. HEENT: Pupils are round and equally reacting to light. EOMI. No scleral icterus. No conjunctival pallor. Normocephalic, atraumatic. No pharyngeal erythema. No thyromegaly. CARDIOVASCULAR: S1 and S2 present. No murmurs, rubs, or gallops. PULMONARY: Chest is clear to auscultation, no wheezing or crackles. ABDOMEN: Soft, nontender, nondistended, normoactive bowel sounds. No palpable organomegaly. MUSCULOSKELETAL: No joint swelling or deformity. EXTREMITIES: No cyanosis, clubbing, or pedal edema. NEUROLOGICAL: Gross neurological examination did not reveal any focal deficits. SKIN: No rashes. Assessment and plan fevers Insulin-dependent diabetes mellitus Hyperglycemia Hyperlipidemia Hypertension Monitor vital signs Monitor CBC Monitor CMP ordered blood cultures ordered sputum culture Ordered CRP Ordered pro-Seb Hold off antibiotics for now Consult ID Labs and medication were reviewed.. Continue same treatment. Continue with symptomatic treatment. Resume home medication. Monitor labs and vitals. DVT and GI prophylaxis. Further recommendations as per clinical course of the patient Dictation was produced using [employer] dictation software. please excuse any grammatical, word or spelling errors. Past Medical History Past Medical History: Coronary Artery Disease (CAD), Diabetes Mellitus Additional Past Medical History / Comment(s): pt type 1 diabetes Last Myocardial Infarction Date:: 2021 History of Any Multi-Drug Resistant Organisms: None Reported Past Surgical History: Orthopedic Surgery Additional Past Surgical History / Comment(s): Knee surgey 1993 Past Anesthesia/Blood Transfusion Reactions: No Reported Reaction Past Psychological History: Schizophrenia Smoking Status: Current every day smoker Past Alcohol Use History: None Reported, Occasional Past Drug Use History: Cocaine, Marijuana Additional Drug Use History / Comment(s): crack cocaine use for 2 years, 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 - Past Family History Father Family Medical History: Coronary Artery Disease (CAD) Medications and Allergies Home Medications Medication Instructions Recorded Confirmed Type Ergocalciferol (Vitamin D2) 1,250 mcg PO MO 02/15/23 05/11/23 History [Drisdol (50,000 Iu)] Aspirin 81 mg PO DAILY 30 Days #30 tab 02/17/23 05/11/23 Rx Atorvastatin [Lipitor] 20 mg PO DAILY 30 Days #30 tab 02/17/23 05/11/23 Rx Insulin Aspart [NovoLOG Flexpen] 10 units SQ AC-TID 30 Days #1 each 02/17/23 05/11/23 Rx Insulin Glargine,Hum.rec.anlog 50 units SQ HS 30 Days #1 each 02/17/23 05/11/23 Rx [Lantus Solostar Pen] amLODIPine [Norvasc] 10 mg PO DAILY 30 Days #30 tab 02/17/23 05/11/23 Rx rOPINIRole HCL [Requip] 0.25 mg PO HS #30 tablet 03/22/23 05/11/23 Rx Cyclobenzaprine [Flexeril] 10 mg PO TID PRN #15 tab 04/04/23 05/11/23 Rx Allergies Allergy/AdvReac Type Severity Reaction Status Date / Time blue dye AdvReac Rapid Verified 05/08/23 03:12 Heart Rate Physical Exam Vitals: Vital Signs Temp Pulse Pulse Resp BP BP Pulse Ox 05/11/23 09:30 98.4 F 05/11/23 07:45 100.4 F H 83 16 125/84 97 05/11/23 02:50 93 18 05/11/23 01:30 98.5 F 93 18 120/79 97 05/11/23 00:21 101 H 18 126/87 99 05/10/23 22:02 100.1 F H 105 H 20 159/94 100 Intake and Output 05/10/23 05/11/23 05/11/23 22:59 06:59 14:59 Other: Voiding Method Toilet Toilet # Voids 1 1 Weight 106.594 kg 106.594 kg Results CBC & Chem 7: 05/10/23 22:27 05/10/23 22:27 Labs: Abnormal Lab Results - Last 24 Hours (Table) 05/10/23 05/10/23 05/10/23 Range/Units 22:27 22:27 22:27 WBC 12.1 H (3.8-10.6) k/uL Hgb 17.9 H (13.0-17.5) gm/dL Neutrophils # 11.0 H (1.3-7.7) k/uL Lymphocytes # 0.6 L (1.0-4.8) k/uL Sodium 133 L (137-145) mmol/L Glucose 393 H (74-99) mg/dL POC Glucose (mg/dL) (70-110) mg/dL Plasma Lactic Acid Alirio (0.7-2.0) mmol/L Alkaline Phosphatase 153 H (38-126) U/L Urine Protein 3+ H (Negative) Urine Glucose (UA) 4+ H (Negative) Urine Ketones Trace H (Negative) Urine Blood Small H (Negative) Hyaline Casts 3 H (0-2) /lpf Urine Mucus Rare H (None) /hpf 05/10/23 05/11/23 05/11/23 Range/Units 22:27 00:26 05:54 WBC (3.8-10.6) k/uL Hgb (13.0-17.5) gm/dL Neutrophils # (1.3-7.7) k/uL Lymphocytes # (1.0-4.8) k/uL Sodium (137-145) mmol/L Glucose (74-99) mg/dL POC Glucose (mg/dL) 361 H 295 H (70-110) mg/dL Plasma Lactic Acid Alirio 2.7 H* (0.7-2.0) mmol/L Alkaline Phosphatase (38-126) U/L Urine Protein (Negative) Urine Glucose (UA) (Negative) Urine Ketones (Negative) Urine Blood (Negative) Hyaline Casts (0-2) /lpf Urine Mucus (None) /hpf 05/11/23 Range/Units 12:03 WBC (3.8-10.6) k/uL Hgb (13.0-17.5) gm/dL Neutrophils # (1.3-7.7) k/uL Lymphocytes # (1.0-4.8) k/uL Sodium (137-145) mmol/L Glucose (74-99) mg/dL POC Glucose (mg/dL) 273 H (70-110) mg/dL Plasma Lactic Acid Alirio (0.7-2.0) mmol/L Alkaline Phosphatase (38-126) U/L Urine Protein (Negative) Urine Glucose (UA) (Negative) Urine Ketones (Negative) Urine Blood (Negative) Hyaline Casts (0-2) /lpf Urine Mucus (None) /hpf Thrombosis Risk Factor Assmnt - Choose All That Apply Any of the Below Risk Factors Present?: Yes Each Factor Represents 1 point: Acute SD, Age 41-60 years, Obesity (BMI >25) Other Risk Factors: No Other congenital or acquired thrombophilia - If yes, enter type in comment: No Thrombosis Risk Factor Assessment Total Risk Factor Score: 3 Thrombosis Risk Factor Assessment Level: Moderate Risk
[2023-05-11 17:06] LABS: Glucose,Whole Blood 290 mg/dL (70-110)
[2023-05-11] MEDS: AMPICILLIN-SULBACTAM 3 GM in SODIUM CHLORIDE 0.9% 100 ML IVPB SCH (17:43)
[2023-05-11 20:23] LABS: Glucose,Whole Blood 288 mg/dL (70-110)
[2023-05-11] MEDS ORDERED: CYCLOBENZAPRINE 10 MG TAB PO PRN (21:56)
[2023-05-11] MEDS ORDERED: INSULIN DETEMIR (LEVEMIR) 100 UNIT/ML SYR SQ SCH ×2 (22:00→22:03)
--- NOTE | 2023-05-11 22:58 | P.CONS ---
History of Present Illness - Reason for Consult Consult date: 05/11/23 - History of Present Illness Patient is a 48-year-old -Italian male with a past medical history significant for diabetes mellitus patient presented to the ER last night for evaluation of fever cough and congestion and lightheadedness patient's symptom has been going on for about 24 hours before presentation to the hospital patient denies having any sick contact patient denies having any headache patient did have some rhinorrhea but no sore throat or other URI symptoms denies any chest pain or shortness of breath he did have a mild cough which she has been attributing to his smoking and does not bring up any sputum patient be complaining of some left lower abdominal pain of 1 day duration have more of a dull aching pain 6-7 out of 10 no radiation did have some nausea but no vomiting and denies any diarrhea or constipation with current symptom the patient was evaluated by the ER physician on arrival to the ER the patient did have fever 100.1 subsequently he spiked a fever 100.4 F patient did have mild tachycardia however he was not hypotensive or hypoxic patient did have white count of 12.1 with a left shift BUN and creatinine has been normal lactic acid was elevated liver exams are normal urine was negative influenza RSV and COVID testing was negative patient did have a chest x-ray normal chest infectious he was consulted with concern for fever of unknown origin and need for antibiotic therapy Past Medical History Past Medical History: Coronary Artery Disease (CAD), Diabetes Mellitus Additional Past Medical History / Comment(s): pt type 1 diabetes Last Myocardial Infarction Date:: 2021 History of Any Multi-Drug Resistant Organisms: None Reported Past Surgical History: Orthopedic Surgery Additional Past Surgical History / Comment(s): Knee surgey 1993 Past Anesthesia/Blood Transfusion Reactions: No Reported Reaction Past Psychological History: Schizophrenia Smoking Status: Current every day smoker Past Alcohol Use History: None Reported, Occasional Past Drug Use History: Cocaine, Marijuana Additional Drug Use History / Comment(s): crack cocaine use for 2 years, pt s tates hes been clean for 3 years. - Past Family History Father Family Medical History: Coronary Artery Disease (CAD) Medications and Allergies Home Medications Medication Instructions Recorded Confirmed Type Ergocalciferol (Vitamin D2) 1,250 mcg PO MO 02/15/23 05/11/23 History [Drisdol (50,000 Iu)] Aspirin 81 mg PO DAILY 30 Days #30 tab 02/17/23 05/11/23 Rx Atorvastatin [Lipitor] 20 mg PO DAILY 30 Days #30 tab 02/17/23 05/11/23 Rx Insulin Aspart [NovoLOG Flexpen] 10 units SQ AC-TID 30 Days #1 each 02/17/23 05/11/23 Rx Insulin Glargine,Hum.rec.anlog 50 units SQ HS 30 Days #1 each 02/17/23 05/11/23 Rx [Lantus Solostar Pen] amLODIPine [Norvasc] 10 mg PO DAILY 30 Days #30 tab 02/17/23 05/11/23 Rx rOPINIRole HCL [Requip] 0.25 mg PO HS #30 tablet 03/22/23 05/11/23 Rx Cyclobenzaprine [Flexeril] 10 mg PO TID PRN #15 tab 04/04/23 05/11/23 Rx Allergies Allergy/AdvReac Type Severity Reaction Status Date / Time blue dye AdvReac Rapid Verified 05/08/23 03:12 Heart Rate Physical Exam Vitals: Vital Signs Temp Pulse Pulse Resp BP BP Pulse Ox 05/11/23 09:30 98.4 F 05/11/23 07:45 100.4 F H 83 16 125/84 97 05/11/23 02:50 93 18 05/11/23 01:30 98.5 F 93 18 120/79 97 05/11/23 00:21 101 H 18 126/87 99 05/10/23 22:02 100.1 F H 105 H 20 159/94 100 Intake and Output 05/10/23 05/11/23 05/11/23 22:59 06:59 14:59 Other: Voiding Method Toilet Toilet # Voids 1 1 Weight 106.594 kg 106.594 kg Results CBC & Chem 7: 05/10/23 22:27 05/10/23 22:27 Labs: Abnormal Lab Results - Last 24 Hours (Table) 05/10/23 05/10/23 05/10/23 Range/Units 22:27 22:27 22:27 WBC 12.1 H (3.8-10.6) k/uL Hgb 17.9 H (13.0-17.5) gm/dL Neutrophils # 11.0 H (1.3-7.7) k/uL Lymphocytes # 0.6 L (1.0-4.8) k/uL Sodium 133 L (137-145) mmol/L Glucose 393 H (74-99) mg/dL POC Glucose (mg/dL) (70-110) mg/dL Plasma Lactic Acid Alirio (0.7-2.0) mmol/L Alkaline Phosphatase 153 H (38-126) U/L Urine Protein 3+ H (Negative) Urine Glucose (UA) 4+ H (Negative) Urine Ketones Trace H (Negative) Urine Blood Small H (Negative) Hyaline Casts 3 H (0-2) /lpf Urine Mucus Rare H (None) /hpf 05/10/23 05/11/23 05/11/23 Range/Units 22:27 00:26 05:54 WBC (3.8-10.6) k/uL Hgb (13.0-17.5) gm/dL Neutrophils # (1.3-7.7) k/uL Lymphocytes # (1.0-4.8) k/uL Sodium (137-145) mmol/L Glucose (74-99) mg/dL POC Glucose (mg/dL) 361 H 295 H (70-110) mg/dL Plasma Lactic Acid Alirio 2.7 H* (0.7-2.0) mmol/L Alkaline Phosphatase (38-126) U/L Urine Protein (Negative) Urine Glucose (UA) (Negative) Urine Ketones (Negative) Urine Blood (Negative) Hyaline Casts (0-2) /lpf Urine Mucus (None) /hpf 05/11/23 Range/Units 12:03 WBC (3.8-10.6) k/uL Hgb (13.0-17.5) gm/dL Neutrophils # (1.3-7.7) k/uL Lymphocytes # (1.0-4.8) k/uL Sodium (137-145) mmol/L Glucose (74-99) mg/dL POC Glucose (mg/dL) 273 H (70-110) mg/dL Plasma Lactic Acid Alirio (0.7-2.0) mmol/L Alkaline Phosphatase (38-126) U/L Urine Protein (Negative) Urine Glucose (UA) (Negative) Urine Ketones (Negative) Urine Blood (Negative) Hyaline Casts (0-2) /lpf Urine Mucus (None) /hpf Assessment and Plan Plan: 1patient presented hospital with generalized not feeling well lightheadedness he did have a low-grade fever and also complaining of some left lower quadrant abdominal pain patient initial work-up for infectious source that is UA chest x-ray has been negative no evidence of any cellulitis concerning for possible abdominal source 2-we will obtain a CT abdominal pelvis with contrast 3-check inflammatory markers 4-empirically add Unasyn while awaiting further work-up to be completed We will follow on clinical condition and cultures to further adjust medication if needed Thank you for this consultation we will follow the patient along with you Dictation was produced using [employer] dictation software. please excuse any grammatical, word or spelling errors. Time with Patient: Greater than 30
[2023-05-12] MEDS: AMPICILLIN-SULBACTAM 3 GM in SODIUM CHLORIDE 0.9% 100 ML IVPB SCH ×3 (00:18→13:12)
[2023-05-12 06:18] LABS: Glucose,Whole Blood 111 mg/dL (70-110)
[2023-05-12] MEDS: SODIUM CHLORIDE 0.9% 1,000 ML IV SCH (06:28)
[2023-05-12] MEDS: INSULIN ASPART (NovoLOG) 100 UNIT/ML VIAL SQ SCH ×2 (06:32→14:10)
[2023-05-12 08:03] VITALS: RESP 15
[2023-05-12] MEDS: ACETAMINOPHEN TAB 325 MG TAB PO PRN (08:32)
[2023-05-12] MEDS: IOPAMIDOL CONTRAST (ORAL USE) VIAL PO PRN ×2 (08:33→09:12)
[2023-05-12 09:23] LABS: Basophils # (A) 0.03 X 10*3/uL (0.00-0.10); Basophils % (A) 0.4 %; Eosinophils # (A) 0.08 X 10*3/uL (0.04-0.35); HCT 40.6 % (39.6-50.0); HGB 13.8 d/dL (12.0-15.0); Lymphocytes # (A) 1.45 X 10*3/uL (0.90-5.00); Lymphocytes % (A) 17.7 %; MCH 29.8 pg (27.0-32.0); MCV 87.7 FL (80.0-97.0); Mean Platelet Volume 12.3 FL (9.5-12.2); Monocytes # (A) 0.64 X 10*3/uL (0.20-1.00); Monocytes % (A) 7.8 %; NRBC Per 100 WBC 0 X 10*3/uL (0.00-0.01); Neutrophils # (A) 5.94 X 10*3/uL (1.80-7.70); Neutrophils % (A) 72.7 %; Platelet Count 193 X 10*3/uL (140-440); RBC 4.63 X 10*6/uL (4.40-5.60); RDW 12.7 % (11.5-14.5); WBC 8.17 X 10*3/uL (4.50-10.00)
[2023-05-12 09:27] LABS: ALT 17 U/L (10-49); AST 20 U/L (14-35); Albumin/Globulin Ratio 1.25 Ratio (1.60-3.17); Alkaline Phosphatase 97 U/L (41-126); BUN/Creat Ratio 14.73 Ratio (12.00-20.00); Blood Urea Nitrogen 16.2 mg/dL (9.0-27.0); Calcium 8.2 mg/dL (8.7-10.3); Carbon Dioxide 22.6 mmol/L (21.6-31.8); Chloride 107 mmol/L (96-109); Globulin 2.4 d/dL (1.6-3.3); Glucose 162 mg/dL (70-110); Potassium 3.8 mmol/L (3.5-5.5); Sodium 138 mmol/L (135-145); Total Bilirubin <0.2 mg/dL (0.3-1.2); Total Protein 5.4 d/dL (6.2-8.2)
--- NOTE | 2023-05-12 10:22 | CT ---
EXAMINATION TYPE: CT abdomen pelvis w con CT DLP: 2066.4 mGycm, Automated exposure control for dose reduction was used. DATE OF EXAM: 05/12/2023 10:12 AM COMPARISON: None CLINICAL INDICATION:Male, 48 years old with history of fever/left sided abd pain; Left sided abdomina l pain and fever. TECHNIQUE: Standard CT of the abdomen and pelvis following the administration of 100 cc of Isovue 3 00 IV contrast material and oral contrast. Coronal and sagittal reformats were performed. FINDINGS: LOWER CHEST: Unremarkable ABDOMEN LIVER: Unremarkable GALLBLADDER AND BILE DUCTS: Unremarkable. PANCREAS: Unremarkable. SPLEEN: Unremarkable. ADRENAL GLANDS: Unremarkable. KIDNEYS AND URETERS: No evidence of hydronephrosis or renal calculus. The kidneys enhance symmetrical ly without suspicious focal lesion. Contrast is demonstrated within both collecting systems on the de layed phase. PELVIS BLADDER: Unremarkable REPRODUCTIVE: Prostate is enlarged in size measuring 5.3 cm in transverse dimension. ABDOMEN & PELVIS STOMACH AND BOWEL: Stomach and duodenum are unremarkable. No focal bowel wall thickening or surroundi ng inflammatory changes. The appendix is within normal limits. Enteric contrast reaches the transvers e colon. No pneumatosis. No evidence of bowel obstruction. PERITONEUM: No evidence of pneumoperitoneum or free fluid. VASCULATURE: Mild atherosclerotic calcifications are present throughout the abdominal aorta and its b ranches. No evidence of aortic aneurysm. MUSCULOSKELETAL: No acute osseous abnormalities LYMPH NODES: No gross evidence for lymphadenopathy. SOFT TISSUE/ABDOMINAL WALL: Tiny fat filled umbilical hernia. Small fat filled left inguinal hernia. IMPRESSION: No acute abdominal/pelvic process.
[2023-05-12 13:11] LABS: Glucose,Whole Blood 189 mg/dL (70-110)
[2023-05-12 14:52] VITALS: BP 158/98; PULSE 71; TEMP 97.6
--- NOTE | 2023-05-13 22:01 | P.DS ---
Providers Date of admission: 05/11/23 00:14 Attending physician: Abimael Butler MD Consults: 05/11/23 12:27 Consult Physician Routine Consulting Provider: Theo Dalton Consult Reason/Comments: Fever of unknown origin Do you want consulting provider notified?: Yes Primary care physician: Stated None Hospital Course: Final Diagnosis Fever and lactic acidosis bacterial unknown source possibly an acute sinusitis Insulin-dependent diabetes mellitus Hyperglycemia Hyperlipidemia Hypertension Hx coronary artery disease Schizophrenia Chronic and ongoing nicotine use Hx of polysubstance abuse Full Code Discharge Disposition Patient is stable for discharge home. Fever has resolved. Patient has been cleared by infectious disease and will complete course of antibiotic therapy on discharge with oral augmentin for 5 days. Patient is given a glucometer for dischcarge. Referred to the [facility] and also is given a list of providers in the area. Patient recommended to establish care with a PCP. All home medications on file have been refilled. Hospital Course This is a 48-year-old gentleman with past medical history significant for diabetes mellitus, hyperlipidemia who presented to the emergency room because of fever, cough and congestion. Patient stated that he was all right one day back he started noticing that he was having fevers at home, also complaining of cough is productive and complaining of nasal congestion. Also had left lower quadrant abdominal pain. Denies any shortness of breath. Denies any palpitations. Denies any chest pain.patient blood sugars were also running high. Because of this fever and cough patient came to the ER. Admitted to medicine with infectious disease consultation. On admission patient has mildly elevated creatinine 1.16 and sodium of 133. Blood glucose 393. Patient does not have a PCP and has been out of his medications at home including insulin, A1C was found to be 13.7. Patient did have elevated lactic acid of 2.7 which normalized and also positive procalcitonin level of 3.42 on admission. Urinalysis negative for infection. There was small blood on the UA. Influenza, Covid and RSV negative. Had mild leukocytosis 12.1 which has normalized. Chest x-ray done in the ER showed normal chest x-ray. Had abdominal pelvis CT done rule out abdominal source of infection which was negative. Hemodynamically stable. Fever improved, no further reports of congestion or myalgias. Lungs are clear, S1 S2 auscultated, abdomen is soft and nontender, focal neurological exam is negative. Cleared for DC with the above mentioned recommendations. Please see medication reconciliation for a list of current medications. Thank you for allowing us to participate in the care of this patient. The impression and plan of care has been dictated by Shelley Rutledge, Nurse Practitioner as directed. Dr. Nicolas MD I have performed a history and physical examination and medical decision making of this patient, discussed the same with the dictator, and agree with the dictators assessment and plan as written, documented as a scribe. Based on total visit time, I have performed more than 50% of this visit. Patient Condition at Discharge: Stable Plan - Discharge Summary Discharge Rx Participant: No New Discharge Prescriptions: New Famotidine [Pepcid] 20 mg PO DAILY #30 tablet Amoxic-Pot Clav 875-125Mg [Augmentin 875-125] 1 tab PO Q12HR 5 Days #10 tab Albuterol Inhaler [Ventolin Hfa Inhaler] 1 puff INHALATION Q6H PRN #1 each PRN Reason: Shortness Of Breath Or Wheezing Continue Aspirin 81 mg PO DAILY 30 Days #30 tab Insulin Glargine,Hum.rec.anlog [Lantus Solostar Pen] 50 units SQ HS 30 Days #1 each Atorvastatin [Lipitor] 20 mg PO DAILY 30 Days #30 tab amLODIPine [Norvasc] 10 mg PO DAILY 30 Days #30 tab rOPINIRole HCL [Requip] 0.25 mg PO HS 30 Days #30 tablet Ergocalciferol (Vitamin D2) [Drisdol (50,000 Iu)] 1,250 mcg PO MO Insulin Aspart [NovoLOG Flexpen] 10 units SQ AC-TID 30 Days #1 each Changed Cyclobenzaprine [Flexeril] 5 mg PO TID PRN #15 tab PRN Reason: Spasms Discharge Medication List Ergocalciferol (Vitamin D2) [Drisdol (50,000 Iu)] 1,250 mcg PO MO 02/15/23 [History] Aspirin 81 mg PO DAILY 30 Days #30 tab 02/17/23 [Rx] Albuterol Inhaler [Ventolin Hfa Inhaler] 1 puff INHALATION Q6H PRN #1 each 05/12/23 [Rx] Amoxic-Pot Clav 875-125Mg [Augmentin 875-125] 1 tab PO Q12HR 5 Days #10 tab 05/12/23 [Rx] Atorvastatin [Lipitor] 20 mg PO DAILY 30 Days #30 tab 05/12/23 [Rx] Cyclobenzaprine [Flexeril] 5 mg PO TID PRN #15 tab 05/12/23 [Rx] Famotidine [Pepcid] 20 mg PO DAILY #30 tablet 05/12/23 [Rx] Insulin Aspart [NovoLOG Flexpen] 10 units SQ AC-TID 30 Days #1 each 05/12/23 [Rx] Insulin Glargine,Hum.rec.anlog [Lantus Solostar Pen] 50 units SQ HS 30 Days #1 each 05/12/23 [Rx] amLODIPine [Norvasc] 10 mg PO DAILY 30 Days #30 tab 05/12/23 [Rx] rOPINIRole HCL [Requip] 0.25 mg PO HS 30 Days #30 tablet 05/12/23 [Rx] Follow up Appointment(s)/Referral(s): None,Stated [Primary Care Provider] - 1-[address] [facility] [NON-STAFF] - 1-2 Days Theo Dalton MD [STAFF PHYSICIAN] - 1 Week Activity/Diet/Wound Care/Special Instructions: Recommend monitoring your blood glucose three times a day and keeping log You would benefit from seeing an mobile equipment servicer on discharge, Hemglobin A1C is 3.7. Dr. Franky Michel and Dr. Kandi Bowers are the 2 endocrinologists in [facility] and numbers have been provided for you. Additionally, recommending to establish care with a PCP. A list is attached with local providers in the area. Continue antibiotics for 5 days. Discharge/Stand Alone Forms: Community Resources, Area PCPs Discharge Disposition: HOME SELF-CARE
== END 2023-05-12 17:24 | disposition home or self-care (01) ==
LOC: EC 21:56 → 6NMEDSUR 05-11 00:14
PROVIDERS: ADMIT Internal Medicine; ATTEND Internal Medicine
DX: R50.9 Fever, unspecified (principal); E87.20 Acidosis, unspecified; E78.5 Hyperlipidemia, unspecified; E86.0 Dehydration; R00.0 Tachycardia, unspecified; R10.32 Left lower quadrant pain; E10.65 Type 1 diabetes mellitus with hyperglycemia; I10 Essential (primary) hypertension; R79.89 Other specified abnormal findings of blood chemistry; I25.10 Atherosclerotic heart disease of native coronary artery without angina pectoris; R42 Dizziness and giddiness; I25.2 Old myocardial infarction; E66.9 Obesity, unspecified; Z68.34 Body mass index [BMI] 34.0-34.9, adult; R05.9 Cough, unspecified; R09.81 Nasal congestion; F20.9 Schizophrenia, unspecified; F17.200 Nicotine dependence, unspecified, uncomplicated; Z20.822 Contact with and (suspected) exposure to COVID-19; Z79.82 Long term (current) use of aspirin; Z79.84 Long term (current) use of oral hypoglycemic drugs; Z79.899 Other long term (current) drug therapy; Z91.02 Food additives allergy status; Z79.4 Long term (current) use of insulin; Z82.49 Family history of ischemic heart disease and other diseases of the circulatory system
CPT/HCPCS: 96361 ×3; 96365; 96366 ×2; 99285; 36415; 80053 ×2; 83605 ×2; 85025 ×2; 86140; 81001; 87040; 83036; 84145; 87636; 71046; 74177; G0378 ×2; J0295 ×2; Q9967

== ENCOUNTER 2023-05-31 05:09 | Observation (INO) | payer OTHER ==
--- NOTE | 2023-05-31 05:32 | ED ---
Chest Pain HPI - General Chief Complaint: Chest Pain Stated Complaint: Chest Pain Time Seen by Provider: 05/31/23 05:30 Source: patient Mode of arrival: ambulatory Limitations: no limitations - History of Present Illness Initial Comments: This patient is 48-year-old man who presents to have evaluation of pain just the right of his sternum that radiates to the right upper extremity. He states that it came on 9 days ago. He has not noted accompanying symptoms. Not noted any worsening or relieving factors. MD Complaint: chest pain Onset/Timin -: days(s) Onset: during rest Pain Location: substernal Pain Radiation: RUE Severity: moderate Quality: aching Consistency: constant Improves With: nothing Worsens With: nothing Treatments Prior to Arrival: none - Related Data Home Medications Medication Instructions Recorded Confirmed Ergocalciferol (Vitamin D2) 1,250 mcg PO MO 02/15/23 05/31/23 [Drisdol (50,000 Iu)] Previous Rx's Medication Instructions Recorded Aspirin 81 mg PO DAILY 30 Days #30 tab 02/17/23 Albuterol Inhaler [Ventolin Hfa 1 puff INHALATION Q6H PRN #1 each 05/12/23 Inhaler] Atorvastatin [Lipitor] 20 mg PO DAILY 30 Days #30 tab 05/12/23 Cyclobenzaprine [Flexeril] 5 mg PO TID PRN #15 tab 05/12/23 Famotidine [Pepcid] 20 mg PO DAILY #30 tablet 05/12/23 Insulin Glargine,Hum.rec.anlog 50 units SQ HS 30 Days #1 each 05/12/23 [Lantus Solostar Pen] amLODIPine [Norvasc] 10 mg PO DAILY 30 Days #30 tab 05/12/23 rOPINIRole HCL [Requip] 0.25 mg PO HS 30 Days #30 tablet 05/12/23 Fenofibrate [Lofibra] 160 mg PO DAILY 30 Days #30 tablet 06/02/23 INSULIN ASPART (NovoLOG) [NovoLOG 12 unit SQ AC-TID 30 Days #1 each 06/02/23 (formulary)] Insulin Aspart [NovoLOG Flexpen] 12 units SQ AC-TID 30 Days #1 each 06/02/23 Allergies Allergy/AdvReac Type Severity Reaction Status Date / Time blue dye AdvReac Rapid Verified 05/31/23 10:45 Heart Rate Review of Systems ROS Statement: Those systems with pertinent positive or pertinent negative responses have been documented in the HPI. ROS Other: All systems not noted in ROS Statement are negative. Constitutional: Denies: fever, chills Respiratory: Denies: cough, dyspnea Cardiovascular: Reports: chest pain. Denies: palpitations, orthopnea, edema, syncope Gastrointestinal: Denies: abdominal pain, nausea, vomiting, diarrhea, constipation Genitourinary: Denies: dysuria, hematuria Musculoskeletal: Denies: back pain Skin: Denies: rash Neurological: Denies: headache, weakness, numbness EKG Findings - EKG Results: EKG: interpreted by ERMD, sinus rhythm (Rate 90 bpm), normal axis, normal QRS, normal ST/T, no acute changes Past Medical History Past Medical History: Coronary Artery Disease (CAD), Diabetes Mellitus Additional Past Medical History / Comment(s): pt type 1 diabetes Last Myocardial Infarction Date:: 2021 History of Any Multi-Drug Resistant Organisms: None Reported Past Surgical History: Orthopedic Surgery Additional Past Surgical History / Comment(s): Knee surgey 1993 Past Anesthesia/Blood Transfusion Reactions: No Reported Reaction Past Psychological History: Schizophrenia Smoking Status: Current every day smoker Past Alcohol Use History: None Reported, Occasional Past Drug Use History: None Reported, Cocaine, Marijuana - Past Family History Father Family Medical History: Coronary Artery Disease (CAD) General Exam Limitations: no limitations General appearance: alert, in no apparent distress Head exam: Present: atraumatic, normocephalic Eye exam: Present: normal appearance Respiratory exam: Present: normal lung sounds bilaterally. Absent: respiratory distress, wheezes, rales, rhonchi, stridor, chest wall tenderness Cardiovascular Exam: Present: regular rate, normal rhythm, normal heart sounds. Absent: systolic murmur, diastolic murmur, rubs, gallop GI/Abdominal exam: Present: soft. Absent: distended, tenderness, guarding, rebound, rigid, mass Extremities exam: Present: normal inspection, normal capillary refill. Absent: pedal edema, calf tenderness Back exam: Present: normal inspection. Absent: CVA tenderness (R), CVA tenderness (L) Neurological exam: Present: alert Skin exam: Present: warm, dry, intact, normal color. Absent: rash Course Vital Signs 05/31/23 05/31/23 05/31/23 05:11 05:24 05:40 Temperature 97.7 F Pulse Rate 93 88 85 Respiratory 18 18 14 Rate Blood Pressure 151/93 161/112 161/112 O2 Sat by Pulse 98 98 97 Oximetry 05/31/23 05/31/23 05/31/23 06:00 07:42 12:35 Temperature Pulse Rate 83 78 78 Respiratory 14 16 18 Rate Blood Pressure 159/96 157/98 135/82 O2 Sat by Pulse 97 98 96 Oximetry 05/31/23 14:50 Temperature 97.9 F Pulse Rate 77 Respiratory 16 Rate Blood Pressure 130/80 O2 Sat by Pulse 100 Oximetry Chest Pain MDM - MDM This patient is 48-year-old man presenting with chest pain. He does have poorly controlled diabetes and patient be admitted to have serial cardiac enzymes, telemetry monitoring, cardiology consultation. Initial workup here notable for hyperglycemia but troponin negative The patient had chest x-ray which I interpreted as being negative for acute infiltrate, pneumothorax, congestive heart failure Was pt. sent in by a medical professional or institution (, PA, [employer]CH, urgent ca re, hospital, or long-term...) When possible be specific @ -[No] Did you speak to anyone other than the patient for history (EMS, parent, family, police, friend...)? What history was obtained from this source @ -[No] Did you review nursing and triage notes (agree or disagree)? Why? @ -[I reviewed and agree with nursing and triage notes] Were old charts reviewed (outside hosp., previous admission, EMS record, old EKG, old radiological studies, urgent care reports/EKG's, long-term records)? Report findings @ -[No old charts were reviewed] Differential Diagnosis (chest pain, altered mental status, abdominal pain women, abdominal pain men, vaginal bleeding, weakness, fever, dyspnea, syncope, headache, dizziness, GI bleed, back pain, seizure, CVA, palpatations, mental health, musculoskeletal)? @ -[Differential Chest Pain: Stable Angina, Unstable Angina, STEMI, NSTEMI Aortic Dissection, Pneumothorax, Musculoskeletal, Esophageal Spasm GERD, Cholecystitis, Pancreatitis, Zoster, this is not meant to be an all-inclusive list. EKG interpreted by me (3pts min.). @ -[As above] X-rays interpreted by me (1pt min.). @ -[As above CT interpreted by me (1pt min.). @ -[None done] U/S interpreted by me (1pt. min.). @ -[None done] What testing was considered but not performed or refused? (CT, X-rays, U/S, labs)? Why? @ -[None] What meds were considered but not given or refused? Why? @ -[None] Did you discuss the management of the patient with other professionals (professionals i.e. , PA, [employer], lab, RT, psych nurse, social research assistant, wing mailer machine operator, teacher, special officer automat, case management director)? Give summary @ -[Case discussed with admitting physician Was smoking cessation discussed for >3mins.? @ -[No] Was critical care preformed (if so, how long)? @ -[No] Were there social determinants of health that impacted care today? How? (Homelessness, low income, unemployed, alcoholism, drug addiction, transportation, low edu. Level, literacy, decrease access to med. care, care home, rehab)? @ -[No] Was there de-escalation of care discussed even if they declined (Discuss DNR or withdrawal of care, Hospice)? DNR status @ -[No] What co-morbidities impacted this encounter? (DM, HTN, Smoking, COPD, CAD, Cancer, CVA, ARF, Chemo, Hep., AIDS, mental health diagnosis, sleep apnea, morbid obesity)? @ -[None] Was patient admitted / discharged? Hospital course, mention meds given and route, prescriptions, significant lab abnormalities, going to OR and other pertinent info. @ -[Patient is admitted, see above Undiagnosed new problem with uncertain prognosis? @ -[No] Drug Therapy requiring intensive monitoring for toxicity (Heparin, Nitro, Insulin, Cardizem)? @ -[No] Were any procedures done? @ -[No] Diagnosis/symptom? @ -[Acute chest pain Acute hyperglycemia and diabetic patient Acute, or Chronic, or Acute on Chronic? @ -[Acute Uncomplicated (without systemic symptoms) or Complicated (systemic symptoms)? @ -[Uncomplicated Side effects of treatment? @ -[No] Exacerbation, Progression, or Severe Exacerbation? @ -[No] Poses a threat to life or bodily function? How? (Chest pain, [place], [place], pneumonia, PE, COPD, DKA, ARF, appy, cholecystitis, CVA, Diverticulitis, Homicidal, Suicidal, threat to staff... and all critical care pts) @ -[Yes chest pain caused by cardiac source can lead to myocardial infarction/ Disposition Clinical Impression: Chest pain Disposition: ADMITTED IP TO THIS HOSP Condition: Stable Is patient prescribed a controlled substance at d/c from ED?: No
[2023-05-31 06:09] LABS: Basophils % (A) 1 %; Eosinophils # (A) 0.2 k/uL (0-0.7); Eosinophils % (A) 3 %; HCT 42.8 % (39.0-53.0); Lymphocytes # (A) 2.4 k/uL (1.0-4.8); Lymphocytes % (A) 41 %; MCH 30.9 pg (25.0-35.0); MCV 88.2 fL (80.0-100.0); Mean Platelet Volume 9.4; Monocytes # (A) 0.5 k/uL (0-1.0); Monocytes % (A) 8 %; Neutrophils # (A) 2.7 k/uL (1.3-7.7); Neutrophils % (A) 46 %; Platelet Count 204 k/uL (150-450); RBC 4.85 m/uL (4.30-5.90); WBC 5.8 k/uL (3.8-10.6)
[2023-05-31 06:23] LABS: ALT 19 U/L (4-49); AST 24 U/L (17-59); African American GFR (CKD) >90 (>60 ml/min/1.73 sqM); Albumin 3.6 g/dL (3.5-5.0); Alkaline Phosphatase 120 U/L (38-126); Anion Gap 9 mmol/L; Blood Urea Nitrogen 33 mg/dL (9-20); Calcium 9.5 mg/dL (8.4-10.2); Carbon Dioxide 22 mmol/L (22-30); Chloride 99 mmol/L (98-107); Glucose 484 mg/dL (74-99); INR 0.9 (<1.2); Magnesium 1.9 mg/dL (1.6-2.3); Non-African American GFR(CKD) 78 (>60 ml/min/1.73 sqM); Partial Thromboplastin Time 25.8 sec (22.0-30.0); Potassium 4.4 mmol/L (3.5-5.1); Prothrombin Time 9.8 sec (9.0-12.0); Sodium 130 mmol/L (137-145); Total Bilirubin 0.6 mg/dL (0.2-1.3); Total Protein 6.7 g/dL (6.3-8.2)
--- NOTE | 2023-05-31 06:50 | XR ---
EXAMINATION TYPE: XR chest 2V DATE OF EXAM: 05/31/2023 COMPARISON: 05/10/2023 HISTORY: Chest pain TECHNIQUE: Frontal and lateral views of the chest are obtained. FINDINGS: There is no focal air space opacity. No evidence for pneumothorax. No pleural effusion. The cardiac silhouette size is within normal limits. The osseous structures are grossly intact. IMPRESSION: 1. No acute cardiopulmonary process.
[2023-05-31] MEDS ORDERED: INSULIN REGULAR 100 UNIT/ML VIAL (IV) SQ STA (07:27)
[2023-05-31 07:40] LABS: Glucose,Whole Blood 456 mg/dL (70-110)
[2023-05-31] MEDS ORDERED: NITROGLYCERIN SL TABS 0.4 MG TAB SUBLINGUAL PRN (08:16)
[2023-05-31] MEDS ORDERED: ASPIRIN 81 MG PO STA (08:16)
--- NOTE | 2023-05-31 08:16 | ED ---
Medical Decision Making - Medical Decision Making Patient seen and admitted by Dr. Hawthorne. I did add on admission orders. Case was discussed in detail with sound physician, Dr. Anaya who will admit Patient reevaluated and updated. Patient resting comfortably in bed, symptom- free at this time. - Lab Data Result diagrams: 05/31/23 05:41 05/31/23 05:41 Lab Results 05/31/23 05/31/23 05/31/23 Range/Units 05:41 05:41 05:41 WBC 5.8 (3.8-10.6) k/uL RBC 4.85 (4.30-5.90) m/uL Hgb 15.0 (13.0-17.5) gm/dL Hct 42.8 (39.0-53.0) % MCV 88.2 (80.0-100.0) fL MCH 30.9 (25.0-35.0) pg MCHC 35.0 (31.0-37.0) g/dL RDW 13.0 (11.5-15.5) % Plt Count 204 (150-450) k/uL MPV 9.4 Neutrophils % 46 % Lymphocytes % 41 % Monocytes % 8 % Eosinophils % 3 % Basophils % 1 % Neutrophils # 2.7 (1.3-7.7) k/uL Lymphocytes # 2.4 (1.0-4.8) k/uL Monocytes # 0.5 (0-1.0) k/uL Eosinophils # 0.2 (0-0.7) k/uL Basophils # 0.0 (0-0.2) k/uL PT 9.8 (9.0-12.0) sec INR 0.9 (<1.2) APTT 25.8 (22.0-30.0) sec D-Dimer 0.25 (<0.60) mg/L FEU Sodium 130 L (137-145) mmol/L Potassium 4.4 (3.5-5.1) mmol/L Chloride 99 (98-107) mmol/L Carbon Dioxide 22 (22-30) mmol/L Anion Gap 9 mmol/L BUN 33 H (9-20) mg/dL Creatinine 1.12 (0.66-1.25) mg/dL Est GFR (CKD-EPI)AfAm >90 (>60 ml/min/1.73 sqM) Est GFR (CKD-EPI)NonAf 78 (>60 ml/min/1.73 sqM) Glucose 484 H (74-99) mg/dL POC Glucose (mg/dL) (70-110) mg/dL POC Glu Car Sales Associate ID Calcium 9.5 (8.4-10.2) mg/dL Magnesium 1.9 (1.6-2.3) mg/dL Total Bilirubin 0.6 (0.2-1.3) mg/dL AST 24 (17-59) U/L ALT 19 (4-49) U/L Alkaline Phosphatase 120 (38-126) U/L Troponin I (0.000-0.034) ng/mL Total Protein 6.7 (6.3-8.2) g/dL Albumin 3.6 (3.5-5.0) g/dL 05/31/23 05/31/23 Range/Units 05:41 07:38 WBC (3.8-10.6) k/uL RBC (4.30-5.90) m/uL Hgb (13.0-17.5) gm/dL Hct (39.0-53.0) % MCV (80.0-100.0) fL MCH (25.0-35.0) pg MCHC (31.0-37.0) g/dL RDW (11.5-15.5) % Plt Count (150-450) k/uL MPV Neutrophils % % Lymphocytes % % Monocytes % % Eosinophils % % Basophils % % Neutrophils # (1.3-7.7) k/uL Lymphocytes # (1.0-4.8) k/uL Monocytes # (0-1.0) k/uL Eosinophils # (0-0.7) k/uL Basophils # (0-0.2) k/uL PT (9.0-12.0) sec INR (<1.2) APTT (22.0-30.0) sec D-Dimer (<0.60) mg/L FEU Sodium (137-145) mmol/L Potassium (3.5-5.1) mmol/L Chloride (98-107) mmol/L Carbon Dioxide (22-30) mmol/L Anion Gap mmol/L BUN (9-20) mg/dL Creatinine (0.66-1.25) mg/dL Est GFR (CKD-EPI)AfAm (>60 ml/min/1.73 sqM) Est GFR (CKD-EPI)NonAf (>60 ml/min/1.73 sqM) Glucose (74-99) mg/dL POC Glucose (mg/dL) 456 H (70-110) mg/dL POC Glu Car Sales Associate ID Jane Griffin Calcium (8.4-10.2) mg/dL Magnesium (1.6-2.3) mg/dL Total Bilirubin (0.2-1.3) mg/dL AST (17-59) U/L ALT (4-49) U/L Alkaline Phosphatase (38-126) U/L Troponin I <0.012 (0.000-0.034) ng/mL Total Protein (6.3-8.2) g/dL Albumin (3.5-5.0) g/dL Disposition Clinical Impression: Chest pain Disposition: ADMITTED IP TO THIS HOSP Condition: Fair Instructions (If sedation given, give patient instructions): Chest Pain (ED) Is patient prescribed a controlled substance at d/c from ED?: No Referrals: None,Stated [Primary Care Provider] - 1-2 days
[2023-05-31] MEDS ORDERED: ALBUTEROL NEBULIZED 2.5 MG/3 ML INHALATION PRN (08:41)
[2023-05-31] MEDS: ATORVASTATIN 20 MG TAB PO SCH (09:08)
[2023-05-31] MEDS: amLODIPine 10 MG TAB PO SCH (09:08)
[2023-05-31 10:57] LABS: Glucose,Whole Blood 351 mg/dL (70-110)
[2023-05-31] MEDS: INSULIN ASPART (NovoLOG) 100 UNIT/ML VIAL SQ SCH ×4 (12:27→21:20)
--- NOTE | 2023-05-31 12:39 | P.PN ---
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 He presented to the emergency department secondary to midsternal pain radiating into right upper extremity/shoulder beginning approximately 9 days ago. He denies anything making the pain worse or better, denies increased pain with movement and decreased pain with rest. Patient denies taking anything at home to treat the pain and denies any associated symptoms stating this pain intermittently comes and goes at all different times. He states that it happened when he sitting down, sleeping, when he is awake or just walking around. He describes this pain as sharp and reports it begins and midsternal chest and radiates to right anterior chest and right shoulder blade. He denies having any associated symptoms including headache, lightheadedness, dizziness, palpitations, shortness of breath, hea rtburn or indigestion, nausea, vomiting, diaphoresis, or experiencing any numbness/tingling/weakness/swelling in his extremities. Patient was unsure/unclear if these feelings were similar to his previous MA. Patient underwent full evaluation in the emergency department. Vital signs completed showing blood pressure 151/93, heart rate 93, respiratory rate 18, temp 97.7F, SpO2 of 98% on room air. EKG completed showing normal sinus rhythm at 88 bpm with no significant T-wave or ST abnormalities upon personal review and interpretation A repeat EKG also completed again showing normal sinus rh ythm at 90 bpm with no noted T-wave or ST abnormalities upon personal review and interpretation. Chest x-ray reviewed lungs appear clear showing no signs of acute cardiopulmonary process. Labs completed and reviewed. CBC unremarkable. Coagulation profile normal findings including d-dimer of 0.25. BMP revealing mild hyponatremia with sodium of 130 hyperglycemia with glucose of 484 (this is pseudohyponatremia with blood glucose of 484 and corrected sodium of 136). Repeat glucose levels checked resulting at 456 and patient was given 10 units of regular insulin subcu at this time. Patient also given aspirin 325 mg by mouth 1 dose. Discussed patient history and current complaints, physical exam findings, laboratory analysis, and imaging results in detail with the ED physician. Patient to be admitted under our services to observation unit with telemetry. Consult placed cardiology. Review of systems: Pertinent positives and negatives as discussed in HPI, a complete review of syst ems was performed and all other systems are negative. Physical exam: Vital signs reviewed and stable. General: Nontoxic, no distress and appears stated age. Derm: Skin warm and dry, normal coloration for ethnicity. Head: Atraumatic, normocephalic and symmetric. Eyes: EOMs intact, no lid lag, and anicteric sclera Mouth: no lip lesions, mucus membranes moist Cardiovascular: regular rate and rhythm with normal S1S2, no murmur, positive posterior tibial pulses bilaterally, and cap refill < 2 seconds. Lungs: Respirations even, regular, and unlabored on room air. Lungs CTA bilaterally, no rhonchi, no rales, no wheezing, and no accessory muscle usage. Abdominal: soft, nontender to palpation, no guarding, no appreciable organomegaly Ext: ROM intact. No gross muscle atrophy, no edema, no contractures Neuro: Speech clear, face symmetrical and CN II-XII grossly intact with no noted focal neuro deficits Psych: Alert and oriented to person, place, time, and situation. Appropriate and pleasant affect. Assessment and Plan of Care: Chest pain, rule out acute coronary event. However, symptoms believed to be less likely cardiac and more likely resulting from pleurisy. History of CAD with previous MA COPD with continued nicotine dependence Hypertension Hyperlipidemia -Cardiology was consulted by ED physician, appreciate further recommendations -Telemetry monitoring -Trend troponins -Cardiac diet -Continue cardiac medication regimen with Aspirin 325 daily, atorvastatin 20 mg daily, and Norvasc 10 mg daily. -Orders placed for scheduled dual nebs 4 times daily and as needed for wh eezing/shortness of breath. -Strongly advised smoking cessation and discussed with patient pain likely pleurisy secondary to COPD/asthma along with continued nicotine use. -Order placed for nicotine patch 21 mg daily. Insulin-dependent diabetes mellitus with hyperglycemia -Glucose elevated at 484 upon arrival to facility. No signs of DKA with anion gap of 9 and bicarb of 22. -Patient was given 10 units regular insulin and started back on daily medication regimen with with meals, Levemir 50 units nightly, and was also placed on glycemic protocol with NovoLog sliding scale. Data review: -Vital signs completed showing blood pressure 151/93, heart rate 93, respiratory rate 18, temp 97.7F, SpO2 of 98% on room air. -EKG completed showing normal sinus rhythm at 88 bpm with no significant T-wave or ST abnormalities upon personal review and interpretation -A repeat EKG also completed again showing normal sinus rhythm at 90 bpm with no noted T-wave or ST abnormalities upon personal review and interpretation. -Chest x-ray reviewed lungs appear clear showing no signs of acute cardiopulmonary process. -Labs completed and reviewed. CBC unremarkable. Coagulation profile normal findings including d-dimer of 0.25. BMP revealing mild hyponatremia with sodium of 130 hyperglycemia with glucose of 484 (this is pseudohyponatremia with blood glucose of 484 and corrected sodium of 136). Troponin negative at less than 0.012. -Repeat glucose levels checked resulting at 456 and patient was given 10 units of regular insulin subcu at this time. Patient also given aspirin 325 mg by mouth 1 dose. -Discussed patient history and current complaints, physical exam findings, laboratory analysis, and imaging results in detail with the ED physician. Patient to be admitted under our services to observation unit with telemetry. The patient is admitted with an anticipated less than 2 midnight stay for evaluation of chest pain CODE STATUS: Full code DVT prophylaxis: heparin Discussed with: patient, ED physician, and RN Anticipated discharge date: clinical course to determine Anticipated discharge place: :Home Patient was seen independently by Nurse Practitioner. This document was prepared using [employer] dictation software. Please allow for errors in cosmetics presser while rare they do occur. Norberto Doe NP rendered care for this patient independently, reviewed the findings and plan as documented in the note above. I did not physically speak with or examine the patient on this date. Objective - Vital Signs Vital signs: Vital Signs Temp 97.7 F 05/31/23 05:11 Pulse 78 05/31/23 07:42 Resp 16 05/31/23 07:42 BP 157/98 05/31/23 07:42 Pulse Ox 98 05/31/23 07:42 FiO2 Intake & Output 05/30/23 05/31/23 05/31/23 18:59 06:59 18:59 Weight 131.542 kg - Labs CBC & Chem 7: 06/02/23 06:06 06/02/23 06:06 Labs: Abnormal Lab Results - Last 24 Hours (Table) 05/31/23 05/31/23 Range/Units 05:41 07:38 Sodium 130 L (137-145) mmol/L BUN 33 H (9-20) mg/dL Glucose 484 H (74-99) mg/dL POC Glucose (mg/dL) 456 H (70-110) mg/dL
[2023-05-31] MEDS ORDERED: DEXTROSE 50% SYRINGE 50 ML IVP PRN ×2 (12:59)
[2023-05-31] MEDS ORDERED: IPRATROPIUM-ALBUTEROL 3 ML NEB INHALATION PRN (13:03)
--- NOTE | 2023-05-31 13:24 | P.HPIM ---
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 He presented to the emergency department secondary to midsternal pain radiating into right upper extremity/shoulder beginning approximately 9 days ago. He denies anything making the pain worse or better, denies increased pain with movement and decreased pain with rest. Patient denies taking anything at home to treat the pain and denies any associated symptoms stating this pain intermittently comes and goes at all different times. He states that it happened when he sitting down, sleeping, wh en he is awake or just walking around. He describes this pain as sharp and reports it begins and midsternal chest and radiates to right anterior chest and right shoulder blade. He denies having any associated symptoms including headache, lightheadedness, dizziness, palpitations, shortness of breath, heartburn or indigestion, nausea, vomiting, diaphoresis, or experiencing any numbness/tingling/weakness/swelling in his extremities. Patient was unsure/unclear if these feelings were similar to his previous NH. Patient underwent full evaluation in the emergency department. Vital signs completed showing blood pressure 151/93, heart rate 93, respiratory rate 18, temp 97.7F, SpO2 of 98% on room air. EKG completed showing normal sinus rhythm at 88 bpm with no significant T-wave or ST abnormalities upon personal review and interpretation A repeat EKG also completed again showing normal sinus rhythm at 90 bpm with no noted T-wave or ST abnormalities upon personal review and interpretation. Chest x-ray reviewed lungs appear clear showing no signs of acute cardiopulmonary process. Labs completed and reviewed. CBC unremarkable. Coagulation profile normal findings including d-dimer of 0.25. BMP revealing mild hyponatremia with sodium of 130 hyperglycemia with glucose of 484 (this is pseudohyponatremia with blood glucose of 484 and corrected sodium of 136). Repeat glucose levels checked resulting at 456 and patient was given 10 units of regular insulin subcu at this time. Patient also given aspirin 325 mg by mouth 1 dose. Discussed patient history and current complaints, physical exam findings, laboratory analysis, and imaging results in detail with the ED physician. Patient to be admitted under our services to observation unit with telemetry. Consult placed cardiology. Review of systems: Pertinent positives and negatives as discussed in HPI, a complete review of systems was performed and all other systems are negative. Physical exam: Vital signs reviewed and stable. General: Nontoxic, no distress and appears stated age. Derm: Skin warm and dry, normal coloration for ethnicity. Head: Atraumatic, normocephalic and symmetric. Eyes: EOMs intact, no lid lag, and anicteric sclera Mouth: no lip lesions, mucus membranes moist Cardiovascular: regular rate and rhythm with normal S1S2, no murmur, positive posterior tibial pulses bilaterally, and cap refill < 2 seconds. Lungs: Respirations even, regular, and unlabored on room air. Lungs CTA bilaterally, no rhonchi, no rales, no wheezing, and no accessory muscle usage. Abdominal: soft, nontender to palpation, no guarding, no appreciable organomegaly Ext: ROM intact. No gross muscle atrophy, no edema, no contractures Neuro: Speech clear, face symmetrical and CN II-XII grossly intact with no noted focal neuro deficits Psych: Alert and oriented to person, place, time, and situation. Appropriate and pleasant affect. Assessment and Plan of Care: Chest pain, rule out acute coronary event. However, symptoms believed to be less likely cardiac and more likely resulting from pleurisy. History of CAD with previous NH COPD with continued nicotine dependence Hypertension Hyperlipidemia -Cardiology was consulted by ED physician, appreciate further recommendations -Telemetry monitoring -Trend troponins -Cardiac diet -Continue cardiac medication regimen with Aspirin 325 daily, atorvastatin 20 mg daily, and Norvasc 10 mg daily. -Orders placed for scheduled dual nebs 4 times daily and as needed for wheezing/shortness of breath. -Strongly advised smoking cessation and discussed with patient pain likely pleurisy secondary to COPD/asthma along with continued nicotine use. -Order placed for nicotine patch 21 mg daily. Insulin-dependent diabetes mellitus with hyperglycemia -Glucose elevated at 484 upon arrival to facility. No signs of DKA with anion gap of 9 and bicarb of 22. -Patient was given 10 units regular insulin and started back on daily medication regimen with with meals, Levemir 50 units nightly, and was also placed on glycemic protocol with NovoLog sliding scale. Data review: -Vital signs completed showing blood pressure 151/93, heart rate 93, respiratory rate 18, temp 97.7F, SpO2 of 98% on room air. -EKG completed showing normal sinus rhythm at 88 bpm with no significant T-wave or ST abnormalities upon personal review and interpretation -A repeat EKG also completed again showing normal sinus rhythm at 90 bpm with no noted T-wave or ST abnormalities upon personal review and interpretation. -Chest x-ray reviewed lungs appear clear showing no signs of acute cardiopulmonary process. -Labs completed and reviewed. CBC unremarkable. Coagulation profile normal findings including d-dimer of 0.25. BMP revealing mild hyponatremia with sodium of 130 hyperglycemia with glucose of 484 (this is pseudohyponatremia with blood glucose of 484 and corrected sodium of 136). Troponin negative at less than 0.012. -Repeat glucose levels checked resulting at 456 and patient was given 10 units of regular insulin subcu at this time. Patient also given aspirin 325 mg by mouth 1 dose. -Discussed patient history and current complaints, physical exam findings, laboratory analysis, and imaging results in detail with the ED physician. Patient to be admitted under our services to observation unit with telemetry. The patient is admitted with an anticipated less than 2 midnight stay for evaluation of chest pain CODE STATUS: Full code DVT prophylaxis: heparin Discussed with: patient, ED physician, and RN Anticipated discharge date: clinical course to determine Anticipated discharge place: :Home Patient was seen independently by Nurse Practitioner. This document was prepared using [employer] dictation software. Please allow for errors in internet sales associate while rare they do occur. Norberto Doe NP rendered care for this patient independently, reviewed the findings and plan as documented in the note above. I did not physically speak with or examine the patient on this date. Past Medical History Past Medical History: Coronary Artery Disease (CAD), Diabetes Mellitus Additional Past Medical History / Comment(s): pt type 1 diabetes Last Myocardial Infarction Date:: 2021 History of Any Multi-Drug Resistant Organisms: None Reported Past Surgical History: Orthopedic Surgery Additional Past Surgical History / Comment(s): Knee surgey 1993 Past Anesthesia/Blood Transfusion Reactions: No Reported Reaction Past Psychological History: Schizophrenia Smoking Status: Current every day smoker Past Alcohol Use History: None Reported, Occasional Past Drug Use History: None Reported, Cocaine, Marijuana - Past Family History Father Family Medical History: Coronary Artery Disease (CAD) Medications and Allergies Home Medications Medication Instructions Recorded Confirmed Type Ergocalciferol (Vitamin D2) 1,250 mcg PO MO 02/15/23 05/31/23 History [Drisdol (50,000 Iu)] Aspirin 81 mg PO DAILY 30 Days #30 tab 02/17/23 05/31/23 Rx Albuterol Inhaler [Ventolin Hfa 1 puff INHALATION Q6H PRN #1 each 05/12/23 05/31/23 Rx Inhaler] Atorvastatin [Lipitor] 20 mg PO DAILY 30 Days #30 tab 05/12/23 05/31/23 Rx Cyclobenzaprine [Flexeril] 5 mg PO TID PRN #15 tab 05/12/23 05/31/23 Rx Famotidine [Pepcid] 20 mg PO DAILY #30 tablet 05/12/23 05/31/23 Rx Insulin Glargine,Hum.rec.anlog 50 units SQ HS 30 Days #1 each 05/12/23 05/31/23 Rx [Lantus Solostar Pen] amLODIPine [Norvasc] 10 mg PO DAILY 30 Days #30 tab 05/12/23 05/31/23 Rx rOPINIRole HCL [Requip] 0.25 mg PO HS 30 Days #30 tablet 05/12/23 05/31/23 Rx Fenofibrate [Lofibra] 160 mg PO DAILY 30 Days #30 tablet 06/02/23 Rx INSULIN ASPART (NovoLOG) [NovoLOG 12 unit SQ AC-TID 30 Days #1 each 06/02/23 Rx (formulary)] Insulin Aspart [NovoLOG Flexpen] 12 units SQ AC-TID 30 Days #1 each 06/02/23 05/31/23 Rx Allergies Allergy/AdvReac Type Severity Reaction Status Date / Time blue dye AdvReac Rapid Verified 05/31/23 10:45 Heart Rate Physical Exam Vitals: Vital Signs Temp Pulse Resp BP Pulse Ox 05/31/23 12:35 78 18 135/82 96 05/31/23 07:42 78 16 157/98 98 05/31/23 06:00 83 14 159/96 97 05/31/23 05:40 85 14 161/112 97 05/31/23 05:24 88 18 161/112 98 05/31/23 05:11 97.7 F 93 18 151/93 98 Intake and Output 05/30/23 05/31/23 05/31/23 22:59 06:59 14:59 Other: Weight 131.542 kg Results CBC & Chem 7: 06/02/23 06:06 06/02/23 06:06 Labs: Abnormal Lab Results - Last 24 Hours (Table) 05/31/23 05/31/23 05/31/23 Range/Units 05:41 07:38 10:56 Sodium 130 L (137-145) mmol/L BUN 33 H (9-20) mg/dL Glucose 484 H (74-99) mg/dL POC Glucose (mg/dL) 456 H 351 H (70-110) mg/dL
[2023-05-31] MEDS: NICOTINE 21MG/24HR PATCH TRANSDERM SCH (14:27)
[2023-05-31] MEDS: IPRATROPIUM-ALBUTEROL 3 ML NEB INHALATION SCH ×2 (15:08→19:22)
[2023-05-31 17:36] LABS: Glucose,Whole Blood 444 mg/dL (70-110)
[2023-05-31] MEDS: HEPARIN SODIUM,PORCINE 5,000 UNIT/ML 1 ML VIAL SQ SCH ×2 (17:58→21:23)
[2023-05-31 21:00] LABS: Glucose,Whole Blood 363 mg/dL (70-110)
[2023-05-31] MEDS: INSULIN DETEMIR (LEVEMIR) 100 UNIT/ML SYR SQ SCH (21:20)
[2023-06-01] MEDS: INSULIN ASPART (NovoLOG) 100 UNIT/ML VIAL SQ SCH ×8 (07:14→20:57)
[2023-06-01] MEDS: IPRATROPIUM-ALBUTEROL 3 ML NEB INHALATION SCH ×4 (07:48→19:04)
[2023-06-01 08:31] LABS: Glucose,Whole Blood 176 mg/dL (70-110)
[2023-06-01] MEDS: ASPIRIN 325 MG TAB PO SCH (09:13)
[2023-06-01] MEDS: amLODIPine 10 MG TAB PO SCH (09:13)
[2023-06-01] MEDS: ATORVASTATIN 20 MG TAB PO SCH (09:13)
[2023-06-01] MEDS: NICOTINE 21MG/24HR PATCH TRANSDERM SCH (09:14)
[2023-06-01] MEDS: HEPARIN SODIUM,PORCINE 5,000 UNIT/ML 1 ML VIAL SQ SCH ×3 (09:15→20:56)
[2023-06-01 11:53] LABS: Chol/HDL Ratio 4.46 Ratio; LDL Cholesterol,Calculated 83.8 mg/dL (0.0-131.0)
[2023-06-01 12:14] LABS: Glucose,Whole Blood 298 mg/dL (70-110)
--- NOTE | 2023-06-01 13:12 | P.CRDCN ---
History of Present Illness Consult date: 06/01/23 Consult reason: chest pain History of present illness: This is Piotr Hernandez NP, I'm dictating on behalf of Dr. Griffith's H&P and A&P The patient was interviewed and examined. HPI: Patient is a pleasant 48-year-old male with a significant past medical history that includes coronary artery disease with previous [place], hypertension, hyperlipidemia, type 1 insulin-dependent diabetes, COPD, and schizophrenia who presented to the emergency department with chest pain. Patient states over the last 9 days, he's been experiencing squeezing pressure in his chest, with intermittent sharp, shooting pains into his right and left arms. Patient states that he experienced some shortness of breath when the pain shot into his left arm. He reports that this pain came on without exertion, or with exertion, he states it really didn't matter what he was doing he would have it. He did report that the pain got better with movement. Patient reports that he smokes approximately one half pack of cigarettes a day, and reports that his blood sugar has recently, over the last 6 months, been mostly uncontrolled with blood sugars in the 300s to 400s. In the emergency department the patient had an EKG completed which demonstrated normal sinus rhythm with no significant abnormalities. Patient had a chest x-ray completed that demonstrated no acute cardiopulmonary process. Troponins have been negative 3. Due to his history he was subsequently admitted for further evaluation. This morning the patient reports he is not having any further chest pain. He is denying shortness of breath, and heart palpitations as well. ROS: [No fever, chills, or rigors] [no cough, phlegm, or expectoration] [no nausea, vomiting, or diarrhea] [no hematuria, dysuria] [no musculoskelatal complaints] [no strokes or seizures] [no skin lesions] EXAMINATION: GENERAL: Well-appearing, well-nourished and in no acute distress. NECK: Supple without JVD or thyromegaly. LUNGS: Breath sounds clear to auscultation bilaterally. Respiration equal and unlabored. No wheezes, rales or rhonchi. HEART: Regular rate and rhythm without murmurs, rubs or gallops. S1 and S2 hea rd. EXTREMITIES: Normal range of motion, no edema. No clubbing or cyanosis. Peripheral pulses intact and strong. REVIEW OF LABS, ECG & MEDICAL DATA: LABS: White count 5.8, hemoglobin 15.0, platelets 204, d-dimer 0.25, sodium 1:30, potassium 4.4, B1 33, creatinine 1.12, hemoglobin A1c 14.8, magnesium 1.9, troponin-less than 0.0123, triglycerides 380, cholesterol 206, LDL 83.8, HDL 46.2 EKG: Normal sinus rhythm IMAGING: Chest x-ray dated 05/31/2023 demonstrates no acute cardiopulmonary process. VITALS: Temp 98.5, pulse 76, respirations 16, blood pressure 129/82, O2 saturation 99% on room air IMPRESSION: 1. Chest pain 2. History of myocardial infarction without stent placement 3. Uncontrolled diabetes, hemoglobin A1c greater than 14 4. History of noncompliance 5. Hypertriglyceridemia 6. Hyperlipidemia PLAN: Patient has not followed up with cardiology post [place]. We'll schedule patient for a dobutamine stress test echo with [facility] tomorrow. If stress test is normal, patient can be discharged home. Stress the importance of the patient following up with cardiology every 6 months at minimum even if he feels okay. Atorvastatin will likely need be increased, will evaluate the necessity of that after stress test tomorrow. Thank you for the consult and allowing us to participate in the care of this patient. 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 - Past Family History Father Family Medical History: Coronary Artery Disease (CAD) Medications and Allergies Home Medications Medication Instructions Recorded Confirmed Type Ergocalciferol (Vitamin D2) 1,250 mcg PO MO 02/15/23 05/31/23 History [Drisdol (50,000 Iu)] Aspirin 81 mg PO DAILY 30 Days #30 tab 02/17/23 05/31/23 Rx Albuterol Inhaler [Ventolin Hfa 1 puff INHALATION Q6H PRN #1 each 05/12/23 05/31/23 Rx Inhaler] Atorvastatin [Lipitor] 20 mg PO DAILY 30 Days #30 tab 05/12/23 05/31/23 Rx Cyclobenzaprine [Flexeril] 5 mg PO TID PRN #15 tab 05/12/23 05/31/23 Rx Famotidine [Pepcid] 20 mg PO DAILY #30 tablet 05/12/23 05/31/23 Rx Insulin Aspart [NovoLOG Flexpen] 10 units SQ AC-TID 30 Days #1 each 05/12/23 05/31/23 Rx Insulin Glargine,Hum.rec.anlog 50 units SQ HS 30 Days #1 each 05/12/23 05/31/23 Rx [Lantus Solostar Pen] amLODIPine [Norvasc] 10 mg PO DAILY 30 Days #30 tab 05/12/23 05/31/23 Rx rOPINIRole HCL [Requip] 0.25 mg PO HS 30 Days #30 tablet 05/12/23 05/31/23 Rx Allergies Allergy/AdvReac Type Severity Reaction Status Date / Time blue dye AdvReac Rapid Verified 05/31/23 10:45 Heart Rate Physical Exam Vitals: Vital Signs Temp Pulse Pulse Resp BP BP BP 06/01/23 07:50 98.5 F 76 16 129/82 06/01/23 07:48 06/01/23 02:00 97.8 F 81 16 132/87 05/31/23 20:11 98.3 F 92 18 119/81 05/31/23 20:00 81 16 05/31/23 19:30 78 05/31/23 19:22 80 05/31/23 15:17 82 05/31/23 15:09 80 05/31/23 15:00 98.1 F 81 16 131/91 05/31/23 14:50 97.9 F 77 16 130/80 Pulse Ox 06/01/23 07:50 99 06/01/23 07:48 95 06/01/23 02:00 95 05/31/23 20:11 95 05/31/23 20:00 05/31/23 19:30 05/31/23 19:22 05/31/23 15:17 05/31/23 15:09 05/31/23 15:00 97 05/31/23 14:50 100 Intake and Output 05/31/23 06/01/23 06/01/23 22:59 06:59 14:59 Intake Total 591 Balance 591 Intake: Oral 591 Other: # Voids 1 1 Weight 131.542 kg Results 05/31/23 05:41 05/31/23 05:41 Cardiac Enzymes 05/31/23 Range/Units 12:19 Troponin I <0.012 (0.000-0.034) ng/mL Lipids 05/30/23 Range/Units 05:41 Triglycerides 380.00 H (0.00-149.00) mg/dL Cholesterol 206.00 H (0.00-200.00) mg/dL HDL Cholesterol 46.20 (40.00-60.00) mg/dL Cholesterol/HDL Ratio 4.46 Ratio Current Medications Generic Name Dose Route Start Last Admin Trade Name Freq PRN Reason Stop Dose Admin Albuterol/Ipratropium 3 ml 05/31/23 16:00 06/01/23 11:21 Ipratropium-Albuterol 3 Ml Neb INHALATION Not Given RT-QID LINDEN Albuterol/Ipratropium 3 ml 05/31/23 13:03 Ipratropium-Albuterol 3 Ml Neb INHALATION RT-Q2H PRN Shortness Of Breath Or Wheezing Amlodipine Besylate 10 mg 05/31/23 09:00 06/01/23 09:13 Amlodipine 10 Mg Tab PO 10 mg DAILY LINDEN Administration Aspirin 325 mg 06/01/23 09:00 06/01/23 09:13 Aspirin 325 Mg Tab PO 325 mg DAILY LINDEN Administration Atorvastatin Calcium 20 mg 05/31/23 09:00 06/01/23 09:13 Atorvastatin 20 Mg Tab PO 20 mg DAILY LINDEN Administration Dextrose/Water 25 ml 05/31/23 12:59 Dextrose 50% Syringe 50 Ml IVP PER PROTOCOL PRN Hypoglycemia Protocol Dextrose/Water 50 ml 05/31/23 12:59 Dextrose 50% Syringe 50 Ml IVP PER PROTOCOL PRN Hypoglycemia Protocol Heparin Sodium (Porcine) 5,000 unit 05/31/23 16:00 06/01/23 09:15 Heparin Sodium,Porcine 5,000 Unit/Ml 1 Ml Vial SQ Not Given Q8HR [facility] Dobutamine HCl/Dextrose 500 mg 250 mls @ 39.463 mls/hr 06/02/23 06:00 / IV Solution IV 06/02/23 23:00 .Q6H21M PRN Per Protocol Protocol 10 MCG/KG/MIN Insulin Aspart 10 unit 05/31/23 12:30 06/01/23 07:14 Insulin Aspart (Novolog) 100 Unit/Ml Vial SQ Not Given AC-TID [facility] Insulin Aspart 0 unit 05/31/23 17:30 06/01/23 07:14 Insulin Aspart (Novolog) 100 Unit/Ml Vial SQ Not Given ACHS [facility] Protocol Insulin Detemir 50 unit 05/31/23 21:00 05/31/23 21:20 Insulin Detemir (Levemir) 100 Unit/Ml Syr SQ 50 unit HS LINDEN Administration Nicotine 1 patch 05/31/23 14:00 06/01/23 09:14 Nicotine 21mg/24hr Patch TRANSDERM 1 patch DAILY LINDEN Administration Nitroglycerin 0.4 mg 05/31/23 08:16 Nitroglycerin Sl Tabs 0.4 Mg Tab SUBLINGUAL Q5M PRN Chest Pain Intake and Output 05/31/23 06/01/23 06/01/23 22:59 06:59 14:59 Intake Total 591 Balance 591 Intake: Oral 591 Other: # Voids 1 1 Weight 131.542 kg 05/31/23 05:41 05/31/23 05:41
--- NOTE | 2023-06-01 18:15 | P.PN ---
Subjective Progress Note Date: 06/01/23 History of Presenting Illness: Patient is a very pleasant 48-year-old male with a past medical history the past medical history of CAD with previous [place] with no previous stent placement and does not follow up outpatient with inhalation therapy aide, hypertension, hyperlipidemia, type 1 insulin-dependent diabetes mellitus, asthma/COPD with continued nicotine dependence, and schizophrenia. He presented to the emergency department secondary to midsternal pain radiating into right upper extremity/shoulder beginning approximately 9 days ago. Patient underwent full evaluation in the emergency department. Vital signs completed showing blood pressure 151/93, heart rate 93, respiratory rate 18, temp 97.7F, SpO2 of 98% on room air. EKG completed showing normal sinus rhythm at 88 bpm with no significant T-wave or ST abnormalities upon personal review and interpretation A repeat EKG also co mpleted again showing normal sinus rhythm at 90 bpm with no noted T-wave or ST abnormalities upon personal review and interpretation. Chest x-ray reviewed lungs appear clear showing no signs of acute cardiopulmonary process. Labs completed and reviewed. CBC unremarkable. Coagulation profile normal findings including d-dimer of 0.25. BMP revealing mild hyponatremia with sodium of 130 hyperglycemia with glucose of 484 (this is pseudohyponatremia with blood glucose of 484 and corrected sodium of 136). Repeat glucose levels checked resulting at 456 and patient was given 10 units of regular insulin subcu at this time. Patient also given aspirin 325 mg by mouth 1 dose. Discussed patient history and current complaints, physical exam findings, laboratory analysis, and imaging results in detail with the ED physician. Patient was admitted under our services to observation unit with telemetry. Consult placed cardiology. Troponins trended overnight all negative at less than 0.0123 draws. Physical exam: Patient seen and fully evaluated at bedside this morning. He reports previous reported chest pain has resolved. He reports overnight he may have had an episode in which she rated a 1 out of 10, but states no further episodes since arrival. Vital signs reviewed and stable. General: Nontoxic, no distress and appears stated age. Derm: Skin warm and dry, normal coloration for ethnicity. Head: Atraumatic, normocephalic and symmetric. Eyes: EOMs intact, no lid lag, and anicteric sclera Mouth: no lip lesions, mucus membranes moist Cardiovascular: regular rate and rhythm with normal S1S2, no murmur, positive posterior tibial pulses bilaterally, and cap refill < 2 seconds. Lungs: Respirations even, regular, and unlabored on room air. Lungs CTA bilaterally, no rhonchi, no rales, no wheezing, and no accessory muscle usage. Abdominal: soft, nontender to palpation, no guarding, no appreciable organomegaly Ext: ROM intact. No gross muscle atrophy, no edema, no contractures Neuro: Speech clear, face symmetrical and CN II-XII grossly intact with no noted focal neuro deficits Psych: Alert and oriented to person, place, time, and situation. Appropriate and pleasant affect. Assessment and Plan of Care: Chest pain, acute coronary event ruled out History of CAD with previous SD COPD with continued nicotine dependence Hypertension Hyperlipidemia -Cardiology following, planning to take patient for stress echo tomorrow -Telemetry monitoring -Troponins trended overnight all negative at less than 0.0123 draws. -Cardiac diet, NPO at midnight -Continue cardiac medication regimen with Aspirin 325 daily, atorvastatin 20 mg daily, and Norvasc 10 mg daily. -Continue scheduled dual nebs 4 times daily and as needed for wheezing/shortness of breath. -Strongly advised smoking cessation and discussed with patient pain likely pleurisy secondary to COPD/asthma along with continued nicotine use. -Continue nicotine patch 21 mg daily. Insulin-dependent diabetes mellitus with hyperglycemia -Glucose elevated at 484 upon arrival to facility. No signs of DKA with anion g ap of 9 and bicarb of 22. -Blood glucose levels have improved since arrival but remain elevated. Will increase patient's scheduled NovoLog to 12 units 3 times daily with meals and continue Levemir 50 units nightly and NovoLog sliding scale Data review: -Vital signs completed showing blood pressure 129/82, heart rate 76, respiratory rate 16, temp 98.5F, and SpO2 of 99% on room air. -Morning EKG repeated and reviewed showing normal sinus rhythm at 85 bpm with no significant T-wave or ST abnormalities showing no signs of acute ischemia upon personal review and interpretation. -Troponins trended overnight all negative at less than 0.0123 draws. CODE STATUS: Full code DVT prophylaxis: heparin Discussed with: patient and RN Anticipated discharge date: clinical course to determine Anticipated discharge place: :Home Patient was seen independently by Nurse Practitioner. This document was prepared using [employer] dictation software. Please allow for errors in spinning room worker while rare they do occur. I reviewed the documentation as provided by the CESIA above, who is the original author of this note. I agree with the documented assessment and plan, with the following changes: none Objective - Vital Signs Vital signs: Vital Signs Temp 98.5 F 06/01/23 07:50 Pulse 76 06/01/23 07:50 Resp 16 06/01/23 07:50 BP 129/82 06/01/23 07:50 Pulse Ox 99 06/01/23 07:50 FiO2 Intake & Output 05/31/23 06/01/23 06/01/23 18:59 06:59 18:59 Intake Total 591 Balance 591 Weight 131.542 kg Intake: Oral 591 Other: # Voids 1 - Labs CBC & Chem 7: 06/02/23 06:06 05/31/23 05:41 Labs: Abnormal Lab Results - Last 24 Hours (Table) 05/31/23 05/31/23 05/31/23 Range/Units 10:56 17:34 20:59 POC Glucose (mg/dL) 351 H 444 H 363 H (70-110) mg/dL 06/01/23 Range/Units 08:30 POC Glucose (mg/dL) 176 H (70-110) mg/dL
[2023-06-01 18:25] LABS: Glucose,Whole Blood 309 mg/dL (70-110)
[2023-06-01 20:44] LABS: Glucose,Whole Blood 229 mg/dL (70-110)
[2023-06-01] MEDS: INSULIN DETEMIR (LEVEMIR) 100 UNIT/ML SYR SQ SCH (20:56)
[2023-06-02] MEDS ORDERED: DOBUTamine DRIP for NUC MED 500 MG in DEXTROSE/WATER 1 250ML.BAG IV PRN (06:00)
[2023-06-02 06:10] LABS: Glucose,Whole Blood 120 mg/dL (70-110)
[2023-06-02] MEDS: INSULIN ASPART (NovoLOG) 100 UNIT/ML VIAL SQ SCH ×4 (06:16→13:11)
[2023-06-02 08:21] LABS: HCT 44.5 % (39.6-50.0); HGB 14.9 d/dL (13.0-17.0); MCH 29.8 pg (27.0-32.0); MCHC 33.5 d/dL (32.0-37.0); Mean Platelet Volume 12.1 FL (9.5-12.2); NRBC Per 100 WBC 0 X 10*3/uL (0.00-0.01); Platelet Count 253 X 10*3/uL (140-440); RDW 12.9 % (11.5-14.5); WBC 5.78 X 10*3/uL (4.50-10.00)
[2023-06-02 08:35] LABS: Magnesium 2.1 mg/dL (1.5-2.4)
[2023-06-02] MEDS: IPRATROPIUM-ALBUTEROL 3 ML NEB INHALATION SCH ×3 (08:37→15:31)
[2023-06-02 09:10] LABS: ALT 18 U/L (10-49); AST 21 U/L (14-35); Albumin 3.6 d/dL (3.8-4.9); Albumin/Globulin Ratio 1.38 Ratio (1.60-3.17); Alkaline Phosphatase 98 U/L (41-126); BUN/Creat Ratio 21.45 Ratio (12.00-20.00); Blood Urea Nitrogen 23.6 mg/dL (9.0-27.0); Calcium 9.1 mg/dL (8.7-10.3); Carbon Dioxide 26.5 mmol/L (21.6-31.8); Chloride 103 mmol/L (96-109); Globulin 2.6 d/dL (1.6-3.3); Glucose 118 mg/dL (70-110); Sodium 138 mmol/L (135-145); Total Bilirubin 0.3 mg/dL (0.3-1.2); Total Protein 6.2 d/dL (6.2-8.2)
[2023-06-02 09:13] VITALS: RESP 16
[2023-06-02] MEDS: ATORVASTATIN 20 MG TAB PO SCH (09:19)
[2023-06-02] MEDS: amLODIPine 10 MG TAB PO SCH (09:19)
[2023-06-02] MEDS: ASPIRIN 325 MG TAB PO SCH (09:19)
[2023-06-02] MEDS: HEPARIN SODIUM,PORCINE 5,000 UNIT/ML 1 ML VIAL SQ SCH (09:19)
[2023-06-02] MEDS: NICOTINE 21MG/24HR PATCH TRANSDERM SCH (09:53)
--- NOTE | 2023-06-02 10:07 | P.PN ---
Subjective HISTORY OF PRESENT ILLNESS: Patient is a pleasant 48-year-old male with a significant past medical history that includes coronary artery disease with previous [place], hypertension, hyperlipidemia, type 1 insulin-dependent diabetes, COPD, and schizophrenia who presented to the emergency department with chest pain. Patient states over the last 9 days, he's been experiencing squeezing pressure in his chest, with intermittent sharp, shooting pains into his right and left arms. Patient states that he experienced some shortness of breath when the pain shot into his left arm. He reports that this pain came on without exertion, or with exertion, he states it really didn't matter what he was doing he would have it. He did report that the pain got better with movement. Patient reports that he smokes approximately one half pack of cigarettes a day, and reports that his blood sugar has recently, over the last 6 months, been mostly uncontrolled with blood sugars in the 300s to 400s. In the emergency department the patient had an EKG completed which demonstrated normal sinus rhythm with no significant abnormalities. Patient had a chest x-ray completed that demonstrated no acute cardiopulmonary process. Troponins have been negative 3. Due to his history he was subsequently admitted for further evaluation. This morning the patient reports he is not having any further chest pain. He is denying shortness of br eath, and heart palpitations as well. LABS: White count 5.8, hemoglobin 15.0, platelets 204, d-dimer 0.25, sodium 1:30, potassium 4.4, B1 33, creatinine 1.12, hemoglobin A1c 14.8, magnesium 1.9, troponin-less than 0.0123, triglycerides 380, cholesterol 206, LDL 83.8, HDL 46.2 EKG: Normal sinus rhythm IMAGING: Chest x-ray dated 05/31/2023 demonstrates no acute cardiopulmonary process. VITALS: Temp 98.5, pulse 76, respirations 16, blood pressure 129/82, O2 saturation 99% on room air 06/02/2023 Patient examined this morning at the bedside. Patient denies chest pain or pressure. Denies SOB. Vital signs are stable. PHYSICAL EXAM: VITAL SIGNS: Reviewed. GENERAL: Well-developed in no acute distress. NECK: Supple. No JVD or thyromegaly LUNGS: Respirations even and unlabored. Lungs essentially clear to auscultation bilaterally. HEART: Regular rate and rhythm. S1 and S2 heard. EXTREMITIES: Normal range of motion. No clubbing or cyanosis. Peripheral pulses intact. No lower extremity edema ASSESSMENT: 1. Chest pain 2. History of myocardial infarction without stent placement 3. Uncontrolled diabetes, hemoglobin A1c greater than 14 4. History of noncompliance 5. Hypertriglyceridemia 6. Hyperlipidemia PLAN: Continue current cardiac medications Patient to undergo dobutamine stress echo today If negative, he may be discharged home today from a cardiac standpoint Nurse practitioner note has been reviewed by physician. Signing provider agrees with the documented findings, assessment, and plan of care. Objective - Vital Signs Vital signs: Vital Signs Temp 97.7 F 06/02/23 07:00 Pulse 76 06/02/23 07:00 Resp 16 06/02/23 07:00 BP 144/88 06/02/23 07:00 Pulse Ox 98 06/02/23 07:00 FiO2 Intake & Output 06/01/23 06/02/23 06/02/23 18:59 06:59 18:59 Intake Total 1071 Balance 1071 Intake: Oral 1071 Other: # Voids 1 1 - Labs CBC & Chem 7: 06/02/23 06:06 06/02/23 06:06 Labs: Abnormal Lab Results - Last 24 Hours (Table) 05/30/23 05/30/23 06/01/23 Range/Units 05:41 05:41 12:13 BUN/Creatinine Ratio (12.00-20.00) Ratio Glucose (70-110) mg/dL POC Glucose (mg/dL) 298 H (70-110) mg/dL Hemoglobin A1c 14.8 H (<=6.0) % Albumin (3.8-4.9) d/dL Albumin/Globulin Ratio (1.60-3.17) Ratio Triglycerides 380.00 H (0.00-149.00) mg/dL Cholesterol 206.00 H (0.00-200.00) mg/dL VLDL Cholesterol, Calc 76.00 H (5.00-40.00) mg/dL 06/01/23 06/01/23 06/02/23 Range/Units 18:21 20:42 06:06 BUN/Creatinine Ratio 21.45 H (12.00-20.00) Ratio Glucose 118 H (70-110) mg/dL POC Glucose (mg/dL) 309 H 229 H (70-110) mg/dL Hemoglobin A1c (<=6.0) % Albumin 3.6 L (3.8-4.9) d/dL Albumin/Globulin Ratio 1.38 L (1.60-3.17) Ratio Triglycerides (0.00-149.00) mg/dL Cholesterol (0.00-200.00) mg/dL VLDL Cholesterol, Calc (5.00-40.00) mg/dL 06/02/23 Range/Units 06:09 BUN/Creatinine Ratio (12.00-20.00) Ratio Glucose (70-110) mg/dL POC Glucose (mg/dL) 120 H (70-110) mg/dL Hemoglobin A1c (<=6.0) % Albumin (3.8-4.9) d/dL Albumin/Globulin Ratio (1.60-3.17) Ratio Triglycerides (0.00-149.00) mg/dL Cholesterol (0.00-200.00) mg/dL VLDL Cholesterol, Calc (5.00-40.00) mg/dL
[2023-06-02] MEDS ORDERED: ATROPINE SULFATE 0.1 MG/ML 10ML SYRINGE ONE (10:30)
[2023-06-02] MEDS ORDERED: DOBUTamine DRIP for NUC MED 500 MG/250 ML BAG IV ONE (10:54)
--- NOTE | 2023-06-02 12:00 | CA ---
Dobutamine Stress Echocardiogram Report Henok Muñiz Age: 48 Gender: M : 1975 Exam Date: 06/02/2023 10:03 Exam Location: [facility] Ordering Physician: Piotr Hernandez Referring Physician: Héctor, Electronic Science Teacher: LIOR, Technologist: Ht (in): 69 Wt (lb): 290 Procedure CPT: Indication: Chest Pain ICD-9 Codes: Rhythm: Patient History: ASCAD and Chest pain Cardiac Medications: Medications in past 24 hours: Contrast: Total Dose (mL): Stress Results Protocol: Dobutamine Peak Dose (???g/kg/min): 40 Duration (min:sec): Atropine:(mg) 0.5 Target HR: 147 Double Product: [id number] Resting HR: 81 Resting BP: 129 / 88 Peak HR: 153 Peak BP: 157 / 69 Max Predicted HR: 173 88 % Max Predicted HR Stress Summary: BP Response: Reason for Termination: Exceeded target heart rate (85% max predicted) Cardiac Symptoms: Chest pain ECG Analysis Resting EKG: Normal sinus rhythm normal axis normal intervals Stress EKG: Negative stress test by EKG criteria Arrhythmia: Frequent PVCs Echo Analysis Base Echo Analysis: Normal left ventricular size wall motion systolic function Low Echo Anaylsis: Normal hyperdynamic response Peak Echo Analysis: Normal hyperdynamic response Recovery Echo: Normal response MEASUREMENTS (Male/Female) Normal Values CONCLUSIONS Negative stress test by EKG criteria Negative dobutamine stress echo Dr. Juice Bangura MD (Electronically Signed) Final Date: 02 June 2023 11:59
[2023-06-02 12:06] LABS: Glucose,Whole Blood 158 mg/dL (70-110)
[2023-06-02 14:45] VITALS: BMI 42.8
--- NOTE | 2023-06-02 15:05 | P.DS ---
Providers Date of admission: 05/31/23 08:17 Expected date of discharge: 06/02/23 Attending physician: Tomy Anaya MD Consults: 05/31/23 08:16 Consult Physician Urgent Consulting Provider: Michell Parekh Consult Reason/Comments: cp Do you want consulting provider notified?: Yes Primary care physician: Stated None Hospital Course: Discharge Diagnosis: Chest pain, acute coronary event ruled out. Chest pain secondary to pleurisy. History of CAD with previous MA COPD with continued nicotine dependence. Strongly recommend smoking cessation. Hypertension Hyperlipidemia Poorly controlled Insulin-dependent diabetes mellitus with hyperglycemia and hemoglobin A1c of 14.8%. Hospital Course: Patient is a very pleasant 48-year-old male with a past medical history the past medical history of CAD with previous MA with no previous stent placement and does not follow up outpatient with dampproofer, hypertension, hyperlipidemia, type 1 insulin-dependent diabetes mellitus, asthma/COPD with continued nicotine dependence, and schizophrenia. He presented to the emergency department secondary to midsternal pain radiating into right upper extremity/shoulder beginning approximately 9 days ago. Patient underwent full evaluation in the emergency department. Vital signs completed showing blood pressure 151/93, heart rate 93, respiratory rate 18, temp 97.7F, SpO2 of 98% on room air. EKG completed showing normal sinus rhythm at 88 bpm with no significant T-wave or ST abnormalities upon personal review and interpretation A repeat EKG also completed again showing normal sinus rhythm at 90 bpm with no noted T-wave or ST abnormalities upon personal review and interpretation. Chest x-ray reviewed lungs appear clear showing no signs of acute cardiopulmonary process. Labs completed and reviewed. CBC unremarkable. Coagulation profile normal findings including d-dimer of 0.25. BMP revealing mild hyponatremia with sodium of 130 hyperglycemia with glucose of 484 (this is pseudohyponatremia with blood glucose of 484 and corrected sodium of 136). Repeat glucose levels checked resulting at 456 and patient was given 10 units of regular insulin subcu at this time. Patient also given aspirin 325 mg by mouth 1 dose. Discussed patient history and current complaints, physical exam findings, laboratory analysis, and imaging results in detail with the ED physician. Patient was admitted under our services to observation unit with telemetry with consult to cardiology. Patient monitored overnight. Troponins were trended all negative at less than 0.0123 draws. Blood glucose levels remained elevated and NovoLog increased to 12 units 3 times daily with meals along with Lantus 50 mg nightly. Glucose levels improving since increasing of Levemir and ranging from 122-229. Cardiology recommended stress testing. Patient underwent a dobutamine stress echo resulting in negative stress test by EKG and negative dobutamine stress echo and negative stress test by EKG criteria. Cardiology clearing patient from their perspective for discharge, recommending outpatient follow-up in our office in 1 week. Hemoglobin A1c very elevated at 14.8. It is unclear if patient is compliant with home insulin regimen. Lipid profile revealing elevated triglycerides of 380, cholesterol 206, and VLDL of 76. Patient started on fenofibrate 160 mg daily in addition to atorvastatin 20 mg daily. Physical exam: Vital signs reviewed and stable. General: Nontoxic, no distress and appears stated age. Derm: Skin warm and dry, normal coloration for ethnicity. Head: Atraumatic, normocephalic and symmetric. Eyes: EOMs intact, no lid lag, and anicteric sclera Mouth: no lip lesions, mucus membranes moist Cardiovascular: regular rate and rhythm with normal S1S2, no murmur, positive posterior tibial pulses bilaterally, and cap refill < 2 seconds. Lungs: Respirations even, regular, and unlabored on room air. Lungs CTA bilaterally, no rhonchi, no rales, no wheezing, and no accessory muscle usage. Abdominal: soft, nontender to palpation, no guarding, no appreciable organomegaly Ext: ROM intact. No gross muscle atrophy, no edema, no contractures Neuro: Speech clear, face symmetrical and CN II-XII grossly intact with no noted focal neuro deficits Psych: Alert and oriented to person, place, time, and situation. Appropriate and pleasant affect. A total of 35 minutes of time were spent preparing this complex discharge summary. Pt was discharged on 06/02/23 at 3:00 PM. Patient was seen independently by Nurse Practitioner. This document was prepared using [employer] dictation software. Please allow for errors in inside finisher while rare they do occur. I reviewed the documentation as provided by the [employer]ES[employer] above, who is the original author of this note. I agree with the documented assessment and plan, with the following changes: none Patient Condition at Discharge: Stable Plan - Discharge Summary Discharge Rx Participant: Yes New Discharge Prescriptions: New INSULIN ASPART (NovoLOG) [NovoLOG (formulary)] 12 unit SQ AC-TID 30 Days #1 each Fenofibrate [Lofibra] 160 mg PO DAILY 30 Days #30 tablet Continue Aspirin 81 mg PO DAILY 30 Days #30 tab Famotidine [Pepcid] 20 mg PO DAILY #30 tablet Insulin Glargine,Hum.rec.anlog [Lantus Solostar Pen] 50 units SQ HS 30 Days #1 each Atorvastatin [Lipitor] 20 mg PO DAILY 30 Days #30 tab amLODIPine [Norvasc] 10 mg PO DAILY 30 Days #30 tab rOPINIRole HCL [Requip] 0.25 mg PO HS 30 Days #30 tablet Ergocalciferol (Vitamin D2) [Drisdol (50,000 Iu)] 1,250 mcg PO MO Albuterol Inhaler [Ventolin Hfa Inhaler] 1 puff INHALATION Q6H PRN #1 each PRN Reason: Shortness Of Breath Or Wheezing Cyclobenzaprine [Flexeril] 5 mg PO TID PRN #15 tab PRN Reason: Spasms Changed Insulin Aspart [NovoLOG Flexpen] 12 units SQ AC-TID 30 Days #1 each Discharge Medication List Ergocalciferol (Vitamin D2) [Drisdol (50,000 Iu)] 1,250 mcg PO MO 02/15/23 [History] Aspirin 81 mg PO DAILY 30 Days #30 tab 02/17/23 [Rx] Albuterol Inhaler [Ventolin Hfa Inhaler] 1 puff INHALATION Q6H PRN #1 each 05/12/23 [Rx] Atorvastatin [Lipitor] 20 mg PO DAILY 30 Days #30 tab 05/12/23 [Rx] Cyclobenzaprine [Flexeril] 5 mg PO TID PRN #15 tab 05/12/23 [Rx] Famotidine [Pepcid] 20 mg PO DAILY #30 tablet 05/12/23 [Rx] Insulin Glargine,Hum.rec.anlog [Lantus Solostar Pen] 50 units SQ HS 30 Days #1 each 05/12/23 [Rx] amLODIPine [Norvasc] 10 mg PO DAILY 30 Days #30 tab 05/12/23 [Rx] rOPINIRole HCL [Requip] 0.25 mg PO HS 30 Days #30 tablet 05/12/23 [Rx] Fenofibrate [Lofibra] 160 mg PO DAILY 30 Days #30 tablet 06/02/23 [Rx] INSULIN ASPART (NovoLOG) [NovoLOG (formulary)] 12 unit SQ AC-TID 30 Days #1 each 06/02/23 [Rx] Insulin Aspart [NovoLOG Flexpen] 12 units SQ AC-TID 30 Days #1 each 06/02/23 [Rx] Follow up Appointment(s)/Referral(s): Alan Neri MD [STAFF PHYSICIAN] - 3 Days Juice Bangura MD [STAFF PHYSICIAN] - 1 Week (Office will call patient with time and date of appointment) Patient Instructions/Handouts: Chest Pain (ED), Pleurisy (DC), How to Stop Smoking (DC), Basic Carbohydrate Counting (DC) Activity/Diet/Wound Care/Special Instructions: Activity: As tolerated. Take breaks as needed. Diet: Heart healthy and carb consistent diet. Avoid salts, or foods with hidden salts such as canned or boxed foods and frozen dinners. Extra salt makes your heart work harder and traps the fluid in your body for longer. Special Instructions: Take all of your medications as directed and remember to keep all of your doctor's appointments and follow-up as needed. Your hemoglobin A1c was extremely elevated at 14.8%. It is unclear if you are compliant with your home insulin medication regimen. Highly recommending monitoring your blood glucose levels closely 3 times daily with meals and nightly before bedtime. It is important to take insulin as prescribed. NovoLog dose was increased to 12 units 3 times daily with meals in addition to your 50 units of Lantus nightly. It is important to follow a heart healthy and carb consistent diet. Continued poorly controlled glucose levels will only lead to further detrimental health conditions up to and including . Strongly recommend smoking cessation. Thank you for allowing us to participate in your care, it was truly a pleasure having you for our patient!!! Discharge Disposition: HOME SELF-CARE
[2023-06-02 15:36] VITALS: BP 108/70; PULSE 86; TEMP 98.2
[2023-06-03] MEDS ORDERED: ASPIRIN 81 MG PO SCH (09:00)
== END 2023-06-02 16:41 | disposition home or self-care (01) ==
LOC: EC 05:09 → 6NMEDSUR 08:17
PROVIDERS: ADMIT Student in an Organized Health Care Education/Training Program; ATTEND Student in an Organized Health Care Education/Training Program
DX: R09.1 Pleurisy (principal); I25.10 Atherosclerotic heart disease of native coronary artery without angina pectoris; I10 Essential (primary) hypertension; E78.5 Hyperlipidemia, unspecified; E78.1 Pure hyperglyceridemia; J44.9 Chronic obstructive pulmonary disease, unspecified; F20.9 Schizophrenia, unspecified; E10.65 Type 1 diabetes mellitus with hyperglycemia; I25.2 Old myocardial infarction; F17.210 Nicotine dependence, cigarettes, uncomplicated; Z95.5 Presence of coronary angioplasty implant and graft; Z79.4 Long term (current) use of insulin; Z79.82 Long term (current) use of aspirin; Z79.899 Other long term (current) drug therapy; Z91.199 Patient's noncompliance with other medical treatment and regimen due to unspecified reason
CPT/HCPCS: 96372 ×4; 99285; 36415; 94640 ×3; 94760; 93005; 93351; 85379; 80061; 80053 ×2; 83735 ×2; 84484; 85025; 85027; 85610; 85730; 83036; 71046; G0378 ×4; S4990 ×2; J1250; J1644 ×2; J0461

== ENCOUNTER 2023-06-13 04:00 | Emergency (ER) | payer OTHER ==
[2023-06-13 04:09] VITALS: RESP 16
--- NOTE | 2023-06-13 07:38 | ED ---
Headache HPI - General Chief Complaint: Headache Stated Complaint: Headache Time Seen by Provider: 06/13/23 06:38 Source: patient, RN notes reviewed Mode of arrival: ambulatory Limitations: no limitations - History of Present Illness Initial Comments: This is a 48-year-old male who presents to the emergency department for a headache. Approximately 45 minutes prior to arrival he was developing pain to the right temporal region radiating down by his teeth. This was not the worst headache of his life. On initial evaluation, the pain had substantially i mproved. He does report mild dental pain. Denies any history of similar pains in the past. He did not have visual changes, dizziness, or lightheadedness when this occurred. Denies any fevers, chills, sore throat, cough, dyspnea, chest pain, palpitations, abdominal pain, nausea, vomiting, diarrhea, or back pain. MD Complaint: headache - Related Data Home Medications Medication Instructions Recorded Confirmed Ergocalciferol (Vitamin D2) 1,250 mcg PO MO 02/15/23 05/31/23 [Drisdol (50,000 Iu)] Previous Rx's Medication Instructions Recorded Aspirin 81 mg PO DAILY 30 Days #30 tab 02/17/23 Albuterol Inhaler [Ventolin Hfa 1 puff INHALATION Q6H PRN #1 each 05/12/23 Inhaler] Atorvastatin [Lipitor] 20 mg PO DAILY 30 Days #30 tab 05/12/23 Cyclobenzaprine [Flexeril] 5 mg PO TID PRN #15 tab 05/12/23 Famotidine [Pepcid] 20 mg PO DAILY #30 tablet 05/12/23 Insulin Glargine,Hum.rec.anlog 50 units SQ HS 30 Days #1 each 05/12/23 [Lantus Solostar Pen] amLODIPine [Norvasc] 10 mg PO DAILY 30 Days #30 tab 05/12/23 rOPINIRole HCL [Requip] 0.25 mg PO HS 30 Days #30 tablet 05/12/23 Fenofibrate [Lofibra] 160 mg PO DAILY 30 Days #30 tablet 06/02/23 INSULIN ASPART (NovoLOG) [NovoLOG 12 unit SQ AC-TID 30 Days #1 each 06/02/23 (formulary)] Insulin Aspart [NovoLOG Flexpen] 12 units SQ AC-TID 30 Days #1 each 06/02/23 Allergies Allergy/AdvReac Type Severity Reaction Status Date / Time blue dye AdvReac Rapid Verified 05/31/23 10:45 Heart Rate Review of Systems ROS Statement: Those systems with pertinent positive or pertinent negative responses have been documented in the HPI. ROS Other: All systems not noted in ROS Statement are negative. Past Medical History Past Medical History: Coronary Artery Disease (CAD), Diabetes Mellitus Additional Past Medical History / Comment(s): pt type 1 diabetes Last Myocardial Infarction Date:: 2021 History of Any Multi-Drug Resistant Organisms: None Reported Past Surgical History: Orthopedic Surgery Additional Past Surgical History / Comment(s): Knee surgey 1993 Past Anesthesia/Blood Transfusion Reactions: No Reported Reaction Past Psychological History: Schizophrenia Smoking Status: Current every day smoker Past Alcohol Use History: None Reported Past Drug Use History: None Reported - Past Family History Father Family Medical History: Coronary Artery Disease (CAD) General Exam Limitations: no limitations General appearance: alert, in no apparent distress Head exam: Present: atraumatic, normocephalic, normal inspection Eye exam: Present: normal appearance, PERRL, EOMI. Absent: scleral icterus, conjunctival injection, periorbital swelling ENT exam: Present: normal exam, mucous membranes moist, TM's normal bilaterally, normal external ear exam Respiratory exam: Present: normal lung sounds bilaterally. Absent: respiratory distress, wheezes, rales, rhonchi, stridor Cardiovascular Exam: Present: regular rate, normal rhythm, normal heart sounds. Absent: systolic murmur, diastolic murmur, rubs, gallop, clicks Neurological exam: Present: alert, oriented X3, CN II-XII intact Psychiatric exam: Present: normal affect, normal mood Skin exam: Present: warm, dry, intact, normal color. Absent: rash Course Vital Signs 06/13/23 04:04 Temperature 98.2 F Pulse Rate 90 Respiratory 16 Rate Blood Pressure 150/87 O2 Sat by Pulse 99 Oximetry Medical Decision Making - Medical Decision Making This is a 48-year-old male who presents to the emergency department for a headache. Was pt. sent in by a medical professional or institution? @ -No Did you speak to anyone other than the patient for history? @ -No Did you review nursing and triage notes? @ -Yes, and I agree, it is accurate with regards to the patient's symptoms. Were old charts reviewed? @ -No Differential Diagnosis? @ -Differential Headache: Migraine, tension, cluster, carbon monoxide, central venous thrombosis, pension karma temporal arteritis, acute closure glaucoma, intercranial hemorrhage, mastoiditis, sinusitis, head injury, this is not meant to be an all-inclusive list. EKG interpreted by me (3pts min.)? @ -Not obtained X-rays interpreted by me (1pt min.)? @ -Not obtained CT interpreted by me (1pt min.)? @ -Not obtained U/S interpreted by me (1pt. min.)? @ -Not obtained What testing was considered but not performed? (CT, X-rays, U/S, labs)? Why? @ -None What meds were considered but not given? Why? @ -None Did you discuss the management of the patient with other professionals? @ -No Did you reconcile home meds? @ -No Was smoking cessation discussed for >3mins.? @ -No Was critical care preformed (if so, how long)? @ -No Were there social determinants of health that impacted care today? How? (Homelessness, low income, unemployed, alcoholism, drug addiction, transportation, low edu. Level, literacy, decrease access to med. care, fpc, rehab)? @ -No Was there de-escalation of care discussed even if they declined? (Discuss DNR or withdrawal of care, Hospice)? @ -No What co-morbidities impacted this encounter? (DM, HTN, Smoking, COPD, CAD, Cancer, CVA, Hep., AIDS, mental health diagnosis, sleep apnea, morbid obesity)? @ -CAD, DM Was patient admitted / discharged? @ -Discharged. Lab work obtained with findings suggestive of dehydration. Lab work was otherwise nonactionable. Patient's pain had essentially resolved and he did not have the need for any pain medication. He was given a liter bolus of IV fluids for dehydration. He was otherwise discharged home in stable condition and instructed to follow-up with his primary care provider. Advised ibuprofen and Tylenol as needed if symptoms return. Undiagnosed new problem with uncertain prognosis? @ -None Drug Therapy requiring intensive monitoring for toxicity (Heparin, Nitro, Insulin, Cardizem)? @ -None Were any procedures done? @ -None Diagnosis/symptom? @ -Headache, dehydration Acute, or Chronic, or Acute on Chronic? @ -Acute Uncomplicated (without systemic symptoms) or Complicated (systemic symptoms)? @ -Uncomplicated Side effects of treatment? @ -None Exacerbation, Progression, or Severe Exacerbation] @ -Not applicable Poses a threat to life or bodily function? @ -No Return precautions reviewed in depth, the patient is instructed to return to the emergency department with any new, worsening, or concerning symptoms. Patient verbalized understanding. This case was discussed in detail with the attending ED physician, Dr. Saldaña. Presentation, findings, and treatment plan discussed in detail as well. - Lab Data Result diagrams: 06/13/23 07:05 06/13/23 07:05 Lab Results 06/13/23 06/13/23 Range/Units 07:05 07:05 WBC 7.2 (3.8-10.6) k/uL RBC 5.16 (4.30-5.90) m/uL Hgb 15.6 (13.0-17.5) gm/dL Hct 46.4 (39.0-53.0) % MCV 89.9 (80.0-100.0) fL MCH 30.2 (25.0-35.0) pg MCHC 33.6 (31.0-37.0) g/dL RDW 13.3 (11.5-15.5) % Plt Count 232 (150-450) k/uL MPV 9.3 Neutrophils % 52 % Lymphocytes % 38 % Monocytes % 6 % Eosinophils % 2 % Basophils % 0 % Neutrophils # 3.8 (1.3-7.7) k/uL Lymphocytes # 2.7 (1.0-4.8) k/uL Monocytes # 0.4 (0-1.0) k/uL Eosinophils # 0.2 (0-0.7) k/uL Basophils # 0.0 (0-0.2) k/uL ESR 16 H (0-15) mm/hr Sodium 133 L (137-145) mmol/L Potassium 4.3 (3.5-5.1) mmol/L Chloride 99 (98-107) mmol/L Carbon Dioxide 26 (22-30) mmol/L Anion Gap 8 mmol/L BUN 26 H (9-20) mg/dL Creatinine 1.45 H (0.66-1.25) mg/dL Est GFR (CKD-EPI)AfAm 66 (>60 ml/min/1.73 sqM) Est GFR (CKD-EPI)NonAf 57 (>60 ml/min/1.73 sqM) Glucose 340 H (74-99) mg/dL Calcium 9.0 (8.4-10.2) mg/dL Total Bilirubin 0.5 (0.2-1.3) mg/dL AST 19 (17-59) U/L ALT 17 (4-49) U/L Alkaline Phosphatase 95 (38-126) U/L C-Reactive Protein <0.5 (<1.0) mg/dL Total Protein 7.0 (6.3-8.2) g/dL Albumin 3.9 (3.5-5.0) g/dL Disposition Clinical Impression: Headache, Dehydration Disposition: HOME SELF-CARE Instructions (If sedation given, give patient instructions): Acute Headache (ED) Additional Instructions: Return to the emergency department with any new, worsening, or concerning symptoms. Alternate with ibuprofen and Tylenol as needed if symptoms return. Make sure you're drinking plenty of water. Follow up with your primary care provider in 1-2 days. Is patient prescribed a controlled substance at d/c from ED?: No Referrals: None,Stated [Primary Care Provider] - 1-2 days
[2023-06-13 08:01] LABS: ALT 17 U/L (4-49); AST 19 U/L (17-59); African American GFR (CKD) 66 (>60 ml/min/1.73 sqM); Albumin 3.9 g/dL (3.5-5.0); Alkaline Phosphatase 95 U/L (38-126); Anion Gap 8 mmol/L; Blood Urea Nitrogen 26 mg/dL (9-20); Carbon Dioxide 26 mmol/L (22-30); Chloride 99 mmol/L (98-107); Glucose 340 mg/dL (74-99); Non-African American GFR(CKD) 57 (>60 ml/min/1.73 sqM); Potassium 4.3 mmol/L (3.5-5.1); Sodium 133 mmol/L (137-145); Total Bilirubin 0.5 mg/dL (0.2-1.3)
[2023-06-13] MEDS ORDERED: SODIUM CHLORIDE 0.9% 1,000 ML IV STA (08:12)
[2023-06-13 08:22] LABS: Basophils % (A) 0 %; Eosinophils # (A) 0.2 k/uL (0-0.7); Eosinophils % (A) 2 %; HCT 46.4 % (39.0-53.0); HGB 15.6 gm/dL (13.0-17.5); Lymphocytes # (A) 2.7 k/uL (1.0-4.8); Lymphocytes % (A) 38 %; MCH 30.2 pg (25.0-35.0); MCHC 33.6 g/dL (31.0-37.0); MCV 89.9 fL (80.0-100.0); Mean Platelet Volume 9.3; Monocytes # (A) 0.4 k/uL (0-1.0); Monocytes % (A) 6 %; Neutrophils # (A) 3.8 k/uL (1.3-7.7); Neutrophils % (A) 52 %; Platelet Count 232 k/uL (150-450); RBC 5.16 m/uL (4.30-5.90); RDW 13.3 % (11.5-15.5); WBC 7.2 k/uL (3.8-10.6)
[2023-06-13 08:26] LABS: C Reactive Protein <0.5 mg/dL (<1.0)
[2023-06-13 09:05] LABS: Erythrocyte Sedimentation Rate 16 mm/hr (0-15)
[2023-06-13 09:38] VITALS: BP 150/88; PULSE 73; TEMP 97.9
== END 2023-06-13 09:38 | disposition home or self-care (01) ==
LOC: EC 04:00
DX: R51.9 Headache, unspecified (principal); E86.0 Dehydration; I25.10 Atherosclerotic heart disease of native coronary artery without angina pectoris; E11.9 Type 2 diabetes mellitus without complications; F17.200 Nicotine dependence, unspecified, uncomplicated; Z88.8 Allergy status to other drugs, medicaments and biological substances; Z79.899 Other long term (current) drug therapy
CPT/HCPCS: 36415; 80053; 85025; 85652; 86140; 96360; 99284

== ENCOUNTER 2023-06-19 02:54 | Emergency (ER) | payer OTHER ==
[2023-06-19 03:03] VITALS: RESP 18; TEMP 97.9
[2023-06-19 03:22] LABS: Glucose,Whole Blood 470 mg/dL (70-110)
[2023-06-19] MEDS ORDERED: SODIUM CHLORIDE 0.9% 1,000 ML IV STA (03:25)
--- NOTE | 2023-06-19 03:29 | ED ---
General Adult HPI - General Chief complaint: Recheck/Abnormal Lab/Rx Stated complaint: seizure Time Seen by Provider: 06/19/23 03:14 Source: patient Mode of arrival: ambulatory Limitations: no limitations - History of Present Illness Initial comments: Dictation was produced using [email or web address] dictation software. please excuse any grammatical, word or spelling errors. Chief Complaint: 48-year-old diabetic male presents to the emergency department for episodes of tremors History of Present Illness: Is a 48-year-old male who has past medical history diabetes he states he did not take his diabetes medications today. States that she is insulin-dependent. He had an episode where he started to have some shaking. He walked away from home to be evaluated. He has no pain complaints. The ROS documented in this emergency department record has been reviewed and confirmed by me. Those systems with pertinent positive or negative responses have been documented in the HPI. All other systems are other negative and/or noncontributory. - Related Data Home Medications Medication Instructions Recorded Confirmed Ergocalciferol (Vitamin D2) 1,250 mcg PO MO 02/15/23 05/31/23 [Drisdol (50,000 Iu)] Previous Rx's Medication Instructions Recorded Aspirin 81 mg PO DAILY 30 Days #30 tab 02/17/23 Albuterol Inhaler [Ventolin Hfa 1 puff INHALATION Q6H PRN #1 each 05/12/23 Inhaler] Atorvastatin [Lipitor] 20 mg PO DAILY 30 Days #30 tab 05/12/23 Cyclobenzaprine [Flexeril] 5 mg PO TID PRN #15 tab 05/12/23 Famotidine [Pepcid] 20 mg PO DAILY #30 tablet 05/12/23 Insulin Glargine,Hum.rec.anlog 50 units SQ HS 30 Days #1 each 05/12/23 [Lantus Solostar Pen] amLODIPine [Norvasc] 10 mg PO DAILY 30 Days #30 tab 05/12/23 rOPINIRole HCL [Requip] 0.25 mg PO HS 30 Days #30 tablet 05/12/23 Fenofibrate [Lofibra] 160 mg PO DAILY 30 Days #30 tablet 06/02/23 INSULIN ASPART (NovoLOG) [NovoLOG 12 unit SQ AC-TID 30 Days #1 each 06/02/23 (formulary)] Insulin Aspart [NovoLOG Flexpen] 12 units SQ AC-TID 30 Days #1 each 06/02/23 Allergies Allergy/AdvReac Type Severity Reaction Status Date / Time blue dye AdvReac Rapid Verified 06/19/23 02:58 Heart Rate Review of Systems ROS Statement: Those systems with pertinent positive or pertinent negative responses have been documented in the HPI. ROS Other: All systems not noted in ROS Statement are negative. Past Medical History Past Medical History: Coronary Artery Disease (CAD), Diabetes Mellitus Additional Past Medical History / Comment(s): pt type 1 diabetes Last Myocardial Infarction Date:: 2021 History of Any Multi-Drug Resistant Organisms: None Reported Past Surgical History: Orthopedic Surgery Additional Past Surgical History / Comment(s): Knee surgey 1993 Past Anesthesia/Blood Transfusion Reactions: No Reported Reaction Past Psychological History: Schizophrenia Smoking Status: Current every day smoker Past Alcohol Use History: None Reported Past Drug Use History: None Reported - Past Family History Father Family Medical History: Coronary Artery Disease (CAD) General Exam - General Exam Comments Initial Comments: PHYSICAL EXAM: General Impression: Alert and oriented x3, not in acute distress HEENT: Normocephalic atraumatic, extra-ocular movements intact, pupils equal and reactive to light bilaterally, mucous membranes moist. Cardiovascular: Heart regular rate and rhythm Chest: Able to complete full sentences, no retractions, no tachypnea Abdomen: abdomen soft, non-tender, non-distended, no organomegaly Musculoskeletal: Pulses present and equal in all extremities, no peripheral edema Motor: no focal deficits noted Neurological: CN II-XII grossly intact, no focal motor or sensory deficits noted Skin: Intact with no visualized rashes Psych: Normal affect and mood Limitations: no limitations Course Vital Signs 06/19/23 02:58 Temperature 97.9 F Pulse Rate 86 Respiratory 18 Rate Blood Pressure 156/91 O2 Sat by Pulse 98 Oximetry EKG Findings - EKG Comments: EKG Findings:: My EKG interpretation: Ventricular rate 80, sinus rhythm,. 164, QRS 90, QTC 410. No ME prolongation, no QTC prolongation, no ST or T-wave changes noted. EKG compared to 06/01/2023 showing no changes. Overall, this EKG is unremarkable Medical Decision Making - Medical Decision Making Was pt. sent in by a medical professional or institution (, PA, CONVENTIONAL UNDERWRITER, urgent care, hospital, or [facility]...) When possible be specific @ -No Did you speak to anyone other than the patient for history (EMS, parent, family, police, friend...)? What history was obtained from this source @ -No Did you review nursing and triage notes (agree or disagree)? Why? @ -I reviewed and agree with nursing and triage notes Were old charts reviewed (outside hosp., previous admission, EMS record, old EKG, old radiological studies, urgent care reports/EKG's, [facility] records)? Report findings @ -No old charts were reviewed Differential Diagnosis (chest pain, altered mental status, abdominal pain women, abdominal pain men, vaginal bleeding, musculoskeletal, weakness, fever, dyspnea, syncope, headache, dizziness, GI bleed, back pain, seizure, CVA, palpatations, mental health)? @ -Differential Weakness: Hypoglycemia, shock, sepsis, hyponatremia, anemia, infection, ND, ETOH, adverse medicine reaction, overdose, stroke, this is not meant to be an all-inclusive list. EKG interpreted by me (3pts min.). @ -See above X-rays interpreted by me (1pt min.). @ -None done CT interpreted by me (1pt min.). @ -None done U/S interpreted by me (1pt. min.). @ -None done What testing was considered but not performed or refused? (CT, X-rays, U/S, labs)? Why? @ -None What meds were considered but not given or refused? Why? @ -None Did you discuss the management of the patient with other professionals (professionals i.e. , PA, CONVENTIONAL UNDERWRITER, lab, RT, psych nurse, social media campaign manager, county bailiff, teacher, training officer, case resource manager)? Give summary @ -No Was smoking cessation discussed for >3mins.? @ -No Was critical care preformed (if so, how long)? @ -No Were there social determinants of health that impacted care today? How? (Homelessness, low income, unemployed, alcoholism, drug addiction, transportation, low edu. Level, literacy, decrease access to med. care, nursing home, rehab)? @ -No Was there de-escalation of care discussed even if they declined (Discuss DNR or withdrawal of care, Hospice)? DNR status @ -No What co-morbidities impacted this encounter? (DM, HTN, Smoking, COPD, CAD, Cancer, CVA, ARF, Chemo, Hep., AIDS, mental health diagnosis, sleep apnea, morbid obesity)? @ -None Was patient admitted / discharged? Hospital course, mention meds given and route, prescriptions, significant lab abnormalities, going to OR and other pertinent info. @ -48-year-old male presents to the ER for chief complaint of shaking tremors. Vital signs are stable. Patient will appear at the bedside. Laboratory evaluation obtained. Hyperglycemic without any acidosis. Rest left within a cceptable limits. Patient given IV fluids and IV insulin. Glucose improved. Patient discharged. Advised follow-up with primary care doctor Undiagnosed new problem with uncertain prognosis? @ -No Drug Therapy requiring intensive monitoring for toxicity (Heparin, Nitro, Insulin, Cardizem)? @ -No Were any procedures done? @ -No Diagnosis/symptom? Acute, or Chronic, or Acute on Chronic? Uncomplicated (without systemic symptoms) or Complicated (systemic symptoms)? @ -1. Tremors, no obvious source Side effects of treatment? @ -No Exacerbation, Progression, or Severe Exacerbation? @ -No Poses a threat to life or bodily function? How? (Chest pain, USA, ND, pneumonia, PE, COPD, DKA, ARF, appy, cholecystitis, CVA, Diverticulitis, Homicidal, Suicid al, threat to staff... and all critical care pts) @ -No - Lab Data Result diagrams: 06/19/23 03:31 06/19/23 03:31 Lab Results 06/19/23 06/19/23 06/19/23 Range/Units 03:14 03:31 03:31 WBC 7.6 (3.8-10.6) k/uL RBC 5.17 (4.30-5.90) m/uL Hgb 15.4 (13.0-17.5) gm/dL Hct 46.5 (39.0-53.0) % MCV 89.8 (80.0-100.0) fL MCH 29.8 (25.0-35.0) pg MCHC 33.2 (31.0-37.0) g/dL RDW 13.3 (11.5-15.5) % Plt Count 241 (150-450) k/uL MPV 9.0 Neutrophils % 57 % Lymphocytes % 32 % Monocytes % 5 % Eosinophils % 3 % Basophils % 0 % Neutrophils # 4.3 (1.3-7.7) k/uL Lymphocytes # 2.4 (1.0-4.8) k/uL Monocytes # 0.4 (0-1.0) k/uL Eosinophils # 0.3 (0-0.7) k/uL Basophils # 0.0 (0-0.2) k/uL Sodium 135 L (137-145) mmol/L Potassium 3.9 (3.5-5.1) mmol/L Chloride 102 (98-107) mmol/L Carbon Dioxide 24 (22-30) mmol/L Anion Gap 9 mmol/L BUN 22 H (9-20) mg/dL Creatinine 1.29 H (0.66-1.25) mg/dL Est GFR (CKD-EPI)AfAm 76 (>60 ml/min/1.73 sqM) Est GFR (CKD-EPI)NonAf 66 (>60 ml/min/1.73 sqM) Glucose 463 H (74-99) mg/dL POC Glucose (mg/dL) 470 H (70-110) mg/dL POC Glu Machine Rope Maker ID Rossy Rutledge Calcium 9.2 (8.4-10.2) mg/dL Disposition Clinical Impression: Occasional tremors, Hyperglycemia Disposition: HOME SELF-CARE Condition: Good Instructions (If sedation given, give patient instructions): Diabetic Hyperglycemia (ED) Is patient prescribed a controlled substance at d/c from ED?: No Referrals: None,Stated [Primary Care Provider] - 1-2 days Time of Disposition: 04:13
[2023-06-19 03:38] LABS: Basophils % (A) 0 %; Eosinophils # (A) 0.3 k/uL (0-0.7); Eosinophils % (A) 3 %; HCT 46.5 % (39.0-53.0); HGB 15.4 gm/dL (13.0-17.5); Lymphocytes # (A) 2.4 k/uL (1.0-4.8); Lymphocytes % (A) 32 %; MCH 29.8 pg (25.0-35.0); MCHC 33.2 g/dL (31.0-37.0); MCV 89.8 fL (80.0-100.0); Monocytes # (A) 0.4 k/uL (0-1.0); Monocytes % (A) 5 %; Neutrophils # (A) 4.3 k/uL (1.3-7.7); Neutrophils % (A) 57 %; Platelet Count 241 k/uL (150-450); RBC 5.17 m/uL (4.30-5.90); RDW 13.3 % (11.5-15.5); WBC 7.6 k/uL (3.8-10.6)
[2023-06-19 04:09] LABS: African American GFR (CKD) 76 (>60 ml/min/1.73 sqM); Anion Gap 9 mmol/L; Blood Urea Nitrogen 22 mg/dL (9-20); Calcium 9.2 mg/dL (8.4-10.2); Carbon Dioxide 24 mmol/L (22-30); Chloride 102 mmol/L (98-107); Glucose 463 mg/dL (74-99); Non-African American GFR(CKD) 66 (>60 ml/min/1.73 sqM); Potassium 3.9 mmol/L (3.5-5.1); Sodium 135 mmol/L (137-145)
[2023-06-19] MEDS ORDERED: INSULIN REGULAR 100 UNIT/ML VIAL (IV) IV ONE (04:10)
[2023-06-19 04:39] LABS: Glucose,Whole Blood 480 mg/dL (70-110)
[2023-06-19 05:03] LABS: Glucose,Whole Blood 435 mg/dL (70-110)
[2023-06-19 05:15] VITALS: BP 171/98; PULSE 76
== END 2023-06-19 05:15 | disposition home or self-care (01) ==
LOC: EC 02:54
DX: R25.1 Tremor, unspecified (principal); E10.65 Type 1 diabetes mellitus with hyperglycemia; I25.2 Old myocardial infarction; I25.10 Atherosclerotic heart disease of native coronary artery without angina pectoris; F17.200 Nicotine dependence, unspecified, uncomplicated; Z88.8 Allergy status to other drugs, medicaments and biological substances; Z79.899 Other long term (current) drug therapy; Z79.4 Long term (current) use of insulin
CPT/HCPCS: 36415; 80048; 85025; 93005; 96360; 99285

== ENCOUNTER 2023-06-25 22:50 | Emergency (ER) | payer OTHER ==
--- NOTE | 2023-06-26 00:03 | ED ---
Dizziness HPI - General Chief Complaint: Dizziness Stated Complaint: Dizziness Time Seen by Provider: 06/25/23 23:49 Source: patient, RN notes reviewed, old records reviewed Mode of arrival: EMS Limitations: no limitations - History of Present Illness Initial Comments: This is a 48-year-old male to the emergency department for evaluation today. Patient presents today for evaluation regards to multiple complaints dizziness lightheadedness fever cough congestion not feeling well. Headache. No travel history no sick contacts. Multiple recent ER visits and medical evaluations, MD Complaint: dizziness, lightheadedness, near syncope -: hour(s) Timing: sudden onset, gradual onset Description: sense of movement History of Same: No History of Trauma: No Severity: mild Improves With: nothing Worsens With: nothing Associated Symptoms: denies other symptoms - Related Data Home Medications Medication Instructions Recorded Confirmed Ergocalciferol (Vitamin D2) 1,250 mcg PO MO 02/15/23 05/31/23 [Drisdol (50,000 Iu)] Previous Rx's Medication Instructions Recorded Aspirin 81 mg PO DAILY 30 Days #30 tab 02/17/23 Albuterol Inhaler [Ventolin Hfa 1 puff INHALATION Q6H PRN #1 each 05/12/23 Inhaler] Atorvastatin [Lipitor] 20 mg PO DAILY 30 Days #30 tab 05/12/23 Cyclobenzaprine [Flexeril] 5 mg PO TID PRN #15 tab 05/12/23 Famotidine [Pepcid] 20 mg PO DAILY #30 tablet 05/12/23 Insulin Glargine,Hum.rec.anlog 50 units SQ HS 30 Days #1 each 05/12/23 [Lantus Solostar Pen] amLODIPine [Norvasc] 10 mg PO DAILY 30 Days #30 tab 05/12/23 rOPINIRole HCL [Requip] 0.25 mg PO HS 30 Days #30 tablet 05/12/23 Fenofibrate [Lofibra] 160 mg PO DAILY 30 Days #30 tablet 06/02/23 INSULIN ASPART (NovoLOG) [NovoLOG 12 unit SQ AC-TID 30 Days #1 each 06/02/23 (formulary)] Insulin Aspart [NovoLOG Flexpen] 12 units SQ AC-TID 30 Days #1 each 06/02/23 Allergies Allergy/AdvReac Type Severity Reaction Status Date / Time blue dye AdvReac Rapid Verified 06/25/23 23:12 Heart Rate Review of Systems ROS Statement: Those systems with pertinent positive or pertinent negative responses have been documented in the HPI. ROS Other: All systems not noted in ROS Statement are negative. Past Medical History Past Medical History: Coronary Artery Disease (CAD), Diabetes Mellitus Additional Past Medical History / Comment(s): pt type 1 diabetes Last Myocardial Infarction Date:: 2021 History of Any Multi-Drug Resistant Organisms: None Reported Past Surgical History: Orthopedic Surgery Additional Past Surgical History / Comment(s): Knee surgey 1994 Past Anesthesia/Blood Transfusion Reactions: No Reported Reaction Past Psychological History: Schizophrenia Smoking Status: Current every day smoker Past Alcohol Use History: None Reported Past Drug Use History: None Reported - Past Family History Father Family Medical History: Coronary Artery Disease (CAD) General Exam Limitations: no limitations General appearance: alert, in no apparent distress, anxious Head exam: Present: atraumatic, normocephalic, normal inspection Eye exam: Present: normal appearance, PERRL, EOMI. Absent: scleral icterus, conjunctival injection, periorbital swelling ENT exam: Present: normal exam, mucous membranes moist Neck exam: Present: normal inspection. Absent: tenderness, meningismus, lymphadenopathy Respiratory exam: Present: normal lung sounds bilaterally. Absent: respiratory distress, wheezes, rales, rhonchi, stridor Cardiovascular Exam: Present: regular rate, normal rhythm, normal heart sounds. Absent: systolic murmur, diastolic murmur, rubs, gallop, clicks GI/Abdominal exam: Present: soft, normal bowel sounds. Absent: distended, tenderness, guarding, rebound, rigid Extremities exam: Present: normal inspection, full ROM, normal capillary refill. Absent: tenderness, pedal edema, joint swelling, calf tenderness Back exam: Present: normal inspection Neurological exam: Present: alert, oriented X3, CN II-XII intact Psychiatric exam: Present: normal affect, normal mood Skin exam: Present: warm, dry, intact, normal color. Absent: rash Course Vital Signs 06/25/23 06/26/23 06/26/23 23:09 00:28 01:08 Temperature 98.0 F Pulse Rate 71 66 74 Respiratory 20 18 18 Rate Blood Pressure 142/89 162/119 161/90 O2 Sat by Pulse 100 100 99 Oximetry 06/26/23 06/26/23 04:10 05:54 Temperature 98.2 F Pulse Rate 64 71 Respiratory 18 Rate Blood Pressure 131/75 O2 Sat by Pulse 97 Oximetry - Reevaluation(s) Reevaluation #1: 06/26/23 02:15 Medical record is reviewed Reevaluation #2: 06/26/23 02:15 Patient symptoms are improving here in the ER Reevaluation #3: 06/26/23 02:16 Patient informed results questions answered Reevaluation #4: 06/26/23 02:16 Was pt. sent in by a medical professional or institution (MERCEDES Mac, CATALYST IMPREGNATOR, urgent care, hospital, or intermediate...) When possible be specific @ -no Did you speak to anyone other than the patient for history (EMS, parent, family, police, friend...)? What history was obtained from this source @ -no Did you review nursing and triage notes (agree or disagree)? Why? @ -agree Are old charts reviewed (outside hosp., previous admission, EMS record, old EKG, old radiological studies, urgent care reports/EKG's, intermediate records)? Report findings @ -yes Differential Diagnosis (chest pain, altered mental status, abdominal pain women, abdominal pain men, vaginal bleeding, weakness, fever, dyspnea, syncope, headache, dizziness, GI bleed, back pain, seizure, CVA, palpatations, mental health, musculoskeletal)? @ -prior EKG interpreted by me (3pts min.). @ -yes X-rays interpreted by me (1pt min.). @ -yes CT interpreted by me (1pt min.). @ -yes U/S interpreted by me (1pt. min.). @ -no What testing was considered but not performed or refused? (CT, X-rays, U/S, labs)? Why? @ -none What meds were considered but not given or refused? Why? @ -none Did you discuss the management of the patient with other professionals (professionals i.e. MERCED[employer] Mac, CATALYST IMPREGNATOR, lab, RT, psych nurse, social services specialist, spot washer, teacher, armored vehicle officer, egg caser)? Give summary @ -no Was smoking cessation discussed for >3mins.? @ -no Was critical care preformed (if so, how long)? @ -no Were there social determinants of health that impacted care today? How? (Homelessness, low income, unemployed, alcoholism, drug addiction, transportation, low edu. Level, literacy, decrease access to med. care, shelter, rehab)? @ -none Was there de-escalation of care discussed even if they declined (Discuss DNR or withdrawal of care, Hospice)? DNR status @ -no What co-morbidities impacted this encounter? (DM, HTN, Smoking, COPD, CAD, Cancer, CVA, ARF, Chemo, Hep., AIDS, mental health diagnosis, sleep apnea, morbid obesity)? @ -none Was patient admitted / discharged? Hospital course, mention meds given and route, prescriptions, significant lab abnormalities, going to OR and other pertinent info. @ - 48 male to the emergency department for evaluation patient coming with multiple symptoms dizziness lightheadedness occasional chest pain weakness. Patient is normal testing here in the ER troponin negative 2, imaging is negative and patient can be discharged home Discharge Undiagnosed new problem with uncertain prognosis? @ -no Drug Therapy requiring intensive monitoring for toxicity (Heparin, Nitro, Insulin, Cardizem)? @ -no Were any procedures done? @ -no Diagnosis/symptom? @ -Chest. Pain, dizziness Acute, or Chronic, or Acute on Chronic? @ -Acute Uncomplicated (without systemic symptoms) or Complicated (systemic symptoms)? @ -Complicated Side effects of treatment? @ -no Exacerbation, Progression, or Severe Exacerbation? @ -exacerbation Poses a threat to life or bodily function? How? (Chest pain, USA, NM, pneumonia, PE, COPD, DKA, ARF, appy, cholecystitis, CVA, Diverticulitis, Homicidal, Suicidal, threat to staff... and all critical care pts) @ -yes with acute ACS or stroke Reevaluation #5: 06/26/23 02:16 Differential Dizziness: Benign paroxysmal positional Vertigo, Menieres disease, otitis media, acoustic neuroma, vertebrobasilar insufficiency, cerebellar stroke, encephalitis, hypovolemic, arrhythmia, coronary artery syndrome, anemia, this is not meant to be an all-inclusive list Differential Chest Pain: Stable Angina, Unstable Angina, STEMI, NSTEMI Aortic Dissection, Pneumothorax, Musculoskeletal, Esophageal Spasm GERD, Cholecystitis, Pancreatitis, Zoster, this is not meant to be an all-inclusive list. EKG Findings - EKG Comments: EKG Findings:: EKG is sinus 63 WI 164 QRS 94 QTC 426 - EKG Results: EKG: interpreted by [facility] Medical Decision Making - Medical Decision Making 48 male to the emergency department for evaluation patient coming with multiple symptoms dizziness lightheadedness occasional chest pain weakness. Patient is normal testing here in the ER troponin negative 2, imaging is negative and patient can be discharged home - Lab Data Result diagrams: 06/26/23 00:12 06/26/23 00:12 Lab Results 06/26/23 06/26/23 06/26/23 Range/Units 00:12 00:12 00:12 WBC 5.1 (3.8-10.6) k/uL RBC 4.71 (4.30-5.90) m/uL Hgb 13.7 (13.0-17.5) gm/dL Hct 42.7 (39.0-53.0) % MCV 90.6 (80.0-100.0) fL MCH 29.1 (25.0-35.0) pg MCHC 32.2 (31.0-37.0) g/dL RDW 12.9 (11.5-15.5) % Plt Count 245 (150-450) k/uL MPV 9.4 Neutrophils % 47 % Lymphocytes % 38 % Monocytes % 9 % Eosinophils % 4 % Basophils % 0 % Neutrophils # 2.4 (1.3-7.7) k/uL Lymphocytes # 2.0 (1.0-4.8) k/uL Monocytes # 0.4 (0-1.0) k/uL Eosinophils # 0.2 (0-0.7) k/uL Basophils # 0.0 (0-0.2) k/uL PT 10.1 (9.0-12.0) sec INR 0.9 (<1.2) APTT 27.9 (22.0-30.0) sec Sodium 133 L (137-145) mmol/L Potassium 4.6 (3.5-5.1) mmol/L Chloride 102 (98-107) mmol/L Carbon Dioxide 21 L (22-30) mmol/L Anion Gap 10 mmol/L BUN 23 H (9-20) mg/dL Creatinine 1.33 H (0.66-1.25) mg/dL Est GFR (CKD-EPI)AfAm 74 (>60 ml/min/1.73 sqM) Est GFR (CKD-EPI)NonAf 64 (>60 ml/min/1.73 sqM) Glucose 381 H (74-99) mg/dL Calcium 9.7 (8.4-10.2) mg/dL Phosphorus 3.9 (2.5-4.5) mg/dL Magnesium 1.9 (1.6-2.3) mg/dL Total Bilirubin 0.6 (0.2-1.3) mg/dL AST 27 (17-59) U/L ALT 15 (4-49) U/L Alkaline Phosphatase 76 (38-126) U/L Troponin I (0.000-0.034) ng/mL NT-Pro-B Natriuret Pep 50 pg/mL Total Protein 7.2 (6.3-8.2) g/dL Albumin 3.9 (3.5-5.0) g/dL Serum Alcohol <10 mg/dL 06/26/23 06/26/23 Range/Units 00:12 04:10 WBC (3.8-10.6) k/uL RBC (4.30-5.90) m/uL Hgb (13.0-17.5) gm/dL Hct (39.0-53.0) % MCV (80.0-100.0) fL MCH (25.0-35.0) pg MCHC (31.0-37.0) g/dL RDW (11.5-15.5) % Plt Count (150-450) k/uL MPV Neutrophils % % Lymphocytes % % Monocytes % % Eosinophils % % Basophils % % Neutrophils # (1.3-7.7) k/uL Lymphocytes # (1.0-4.8) k/uL Monocytes # (0-1.0) k/uL Eosinophils # (0-0.7) k/uL Basophils # (0-0.2) k/uL PT (9.0-12.0) sec INR (<1.2) APTT (22.0-30.0) sec Sodium (137-145) mmol/L Potassium (3.5-5.1) mmol/L Chloride (98-107) mmol/L Carbon Dioxide (22-30) mmol/L Anion Gap mmol/L BUN (9-20) mg/dL Creatinine (0.66-1.25) mg/dL Est GFR (CKD-EPI)AfAm (>60 ml/min/1.73 sqM) Est GFR (CKD-EPI)NonAf (>60 ml/min/1.73 sqM) Glucose (74-99) mg/dL Calcium (8.4-10.2) mg/dL Phosphorus (2.5-4.5) mg/dL Magnesium (1.6-2.3) mg/dL Total Bilirubin (0.2-1.3) mg/dL AST (17-59) U/L ALT (4-49) U/L Alkaline Phosphatase (38-126) U/L Troponin I 0.025 <0.012 (0.000-0.034) ng/mL NT-Pro-B Natriuret Pep pg/mL Total Protein (6.3-8.2) g/dL Albumin (3.5-5.0) g/dL Serum Alcohol mg/dL - EKG Data -: EKG Interpreted by Me - Radiology Data Radiology results: report reviewed (CT brain negative for acute disease chest x- rays negative for acute disease), image reviewed Disposition Clinical Impression: Chest pain, Dizziness Disposition: HOME SELF-CARE Condition: Good Instructions (If sedation given, give patient instructions): Dizziness (ED) Is patient prescribed a controlled substance at d/c from ED?: No Referrals: None,Stated [Primary Care Provider] - 1-2 days Time of Disposition: 05:30
[2023-06-26] MEDS ORDERED: SODIUM CHLORIDE 0.9% 1,000 ML IV STA (00:08)
[2023-06-26 00:30] VITALS: RESP 18
[2023-06-26 00:50] LABS: ALT 15 U/L (4-49); African American GFR (CKD) 74 (>60 ml/min/1.73 sqM); Albumin 3.9 g/dL (3.5-5.0); Alcohol <10 mg/dL; Anion Gap 10 mmol/L; Blood Urea Nitrogen 23 mg/dL (9-20); Calcium 9.7 mg/dL (8.4-10.2); Carbon Dioxide 21 mmol/L (22-30); Chloride 102 mmol/L (98-107); Glucose 381 mg/dL (74-99); Non-African American GFR(CKD) 64 (>60 ml/min/1.73 sqM); Sodium 133 mmol/L (137-145); Total Bilirubin 0.6 mg/dL (0.2-1.3); Total Protein 7.2 g/dL (6.3-8.2)
[2023-06-26 00:58] LABS: NT-Pro-B-Type Natriuretic Pept 50 pg/mL
--- NOTE | 2023-06-26 01:10 | CT ---
EXAM: CT Head Without Intravenous Contrast CLINICAL HISTORY: ITS.REASON CT Reason: dizzy TECHNIQUE: Axial computed tomography images of the head/brain without intravenous contrast. CTDI is 49.1 mGy and DLP is 1307.4 mGy-cm. This CT exam was performed using one or more of the following dose reduction techniques: automated exposure control, adjustment of the mA and/or kV according to patient size, and/or use of iterative reconstruction technique. COMPARISON: No relevant prior studies available. FINDINGS: Brain: No hemorrhage or mass effect. Ventricles: No hydrocephalus. Bones/joints: Unremarkable. Soft tissues: Unremarkable. Sinuses: No air fluid level. Mastoid air cells: Clear. IMPRESSION: No acute hemorrhage, hydrocephalus, or mass effect.
[2023-06-26 01:15] LABS: AST 27 U/L (17-59); Alkaline Phosphatase 76 U/L (38-126); Magnesium 1.9 mg/dL (1.6-2.3); Phosphorus 3.9 mg/dL (2.5-4.5); Potassium 4.6 mmol/L (3.5-5.1)
--- NOTE | 2023-06-26 01:15 | XR ---
EXAM: XR Chest, 1 View CLINICAL HISTORY: ITS.REASON XR Reason: cp TECHNIQUE: Frontal view of the chest. COMPARISON: No relevant prior studies available. FINDINGS: Lungs: No consolidation or mass. Pleural space: No acute findings Heart: No cardiomegaly. Bones/joints: No acute findings. IMPRESSION: No acute cardiopulmonary process.
[2023-06-26 01:30] LABS: Basophils % (A) 0 %; Eosinophils # (A) 0.2 k/uL (0-0.7); Eosinophils % (A) 4 %; HCT 42.7 % (39.0-53.0); HGB 13.7 gm/dL (13.0-17.5); Lymphocytes % (A) 38 %; MCH 29.1 pg (25.0-35.0); MCHC 32.2 g/dL (31.0-37.0); MCV 90.6 fL (80.0-100.0); Mean Platelet Volume 9.4; Monocytes # (A) 0.4 k/uL (0-1.0); Monocytes % (A) 9 %; Neutrophils # (A) 2.4 k/uL (1.3-7.7); Neutrophils % (A) 47 %; Platelet Count 245 k/uL (150-450); RBC 4.71 m/uL (4.30-5.90); RDW 12.9 % (11.5-15.5); WBC 5.1 k/uL (3.8-10.6)
[2023-06-26 01:38] LABS: INR 0.9 (<1.2); Partial Thromboplastin Time 27.9 sec (22.0-30.0); Prothrombin Time 10.1 sec (9.0-12.0)
[2023-06-26 04:16] VITALS: BP 131/75; TEMP 98.2
[2023-06-26 06:05] VITALS: PULSE 71
== END 2023-06-26 06:06 | disposition home or self-care (01) ==
LOC: EC 22:50
DX: R42 Dizziness and giddiness (principal); R07.9 Chest pain, unspecified; E11.9 Type 2 diabetes mellitus without complications; I25.10 Atherosclerotic heart disease of native coronary artery without angina pectoris; F17.200 Nicotine dependence, unspecified, uncomplicated; I25.2 Old myocardial infarction; Z91.041 Radiographic dye allergy status
CPT/HCPCS: 36415; 93005; 83880; 80053; 83735; 84100; 84484; 85025; 85610; 85730; 71045; 70450; 99285; 96360; 96361 ×5; G0480; 80320

== ENCOUNTER 2023-07-07 04:02 | Emergency (ER) | payer OTHER ==
--- NOTE | 2023-07-07 04:49 | ED ---
General Adult HPI - General Chief complaint: Arrhythmia/Palpitations Stated complaint: Heart palpitations Time Seen by Provider: 07/07/23 04:21 Source: patient Mode of arrival: ambulatory Limitations: no limitations - History of Present Illness Initial comments: This is a 48-year-old male with a past medical history including hyperlipidemia hypertension presents emergency department for palpitations. The patient stated that he felt as if his heart was racing for about 15 minutes earlier in the evening and he became concerned. The patient stated this has happened before but stated that this time it lasted slightly longer so he became concerned. The patient stated he had some mild shortness of breath with this however denied any acute pain or symptoms currently. The patient denied any increased caffeine intake and denied any other complaints or distress. The patient was otherwise resting in bed comfortably. - Related Data Home Medications Medication Instructions Recorded Confirmed Ergocalciferol (Vitamin D2) 1,250 mcg PO MO 02/15/23 05/31/23 [Drisdol (50,000 Iu)] Previous Rx's Medication Instructions Recorded Aspirin 81 mg PO DAILY 30 Days #30 tab 02/17/23 Albuterol Inhaler [Ventolin Hfa 1 puff INHALATION Q6H PRN #1 each 05/12/23 Inhaler] Atorvastatin [Lipitor] 20 mg PO DAILY 30 Days #30 tab 05/12/23 Cyclobenzaprine [Flexeril] 5 mg PO TID PRN #15 tab 05/12/23 Famotidine [Pepcid] 20 mg PO DAILY #30 tablet 05/12/23 Insulin Glargine,Hum.rec.anlog 50 units SQ HS 30 Days #1 each 05/12/23 [Lantus Solostar Pen] amLODIPine [Norvasc] 10 mg PO DAILY 30 Days #30 tab 05/12/23 rOPINIRole HCL [Requip] 0.25 mg PO HS 30 Days #30 tablet 05/12/23 Fenofibrate [Lofibra] 160 mg PO DAILY 30 Days #30 tablet 06/02/23 INSULIN ASPART (NovoLOG) [NovoLOG 12 unit SQ AC-TID 30 Days #1 each 06/02/23 (formulary)] Insulin Aspart [NovoLOG Flexpen] 12 units SQ AC-TID 30 Days #1 each 06/02/23 Allergies Allergy/AdvReac Type Severity Reaction Status Date / Time blue dye AdvReac Rapid Verified 07/07/23 04:54 Heart Rate Review of Systems ROS Statement: Those systems with pertinent positive or pertinent negative responses have been documented in the HPI. ROS Other: All systems not noted in ROS Statement are negative. Past Medical History Past Medical History: Coronary Artery Disease (CAD), Diabetes Mellitus Additional Past Medical History / Comment(s): pt type 1 diabetes Last Myocardial Infarction Date:: 2021 History of Any Multi-Drug Resistant Organisms: None Reported Past Surgical History: Orthopedic Surgery Additional Past Surgical History / Comment(s): Knee surgey 1993 Past Anesthesia/Blood Transfusion Reactions: No Reported Reaction Past Psychological History: Schizophrenia Smoking Status: Current every day smoker Past Alcohol Use History: Occasional Past Drug Use History: Marijuana - Past Family History Father Family Medical History: Coronary Artery Disease (CAD) General Exam Limitations: no limitations General appearance: alert, in no apparent distress Head exam: Present: atraumatic, normocephalic, normal inspection Eye exam: Present: normal appearance, PERRL Pupils: Present: normal accommodation ENT exam: Present: normal exam, normal oropharynx, mucous membranes moist Neck exam: Present: normal inspection, full ROM Respiratory exam: Present: normal lung sounds bilaterally Cardiovascular Exam: Present: regular rate, normal rhythm, normal heart sounds GI/Abdominal exam: Present: soft, normal bowel sounds Extremities exam: Present: normal inspection, full ROM Back exam: Present: normal inspection, full ROM Neurological exam: Present: alert, oriented X3, CN II-XII intact Psychiatric exam: Present: normal affect, normal mood Skin exam: Present: warm, dry Course Vital Signs 07/07/23 04:10 Temperature 98.1 F Pulse Rate 84 Respiratory 16 Rate Blood Pressure 155/92 O2 Sat by Pulse 99 Oximetry EKG Findings - EKG Comments: EKG Findings:: An EKG was obtained and was interpreted by myself showing a rate of 85, OR interval 144, QR cheondoism 94 and QTC of 4:30. This EKG showed a normal sinus rhythm with no ST segment elevation or depression noted. Medical Decision Making - Medical Decision Making Was pt. sent in by a medical professional or institution (, PA, CDL BULK DRIVER, urgent care, hospital, or longterm...) When possible be specific @ -No Did you speak to anyone other than the patient for history (EMS, parent, family, police, friend...)? What history was obtained from this source @ -No Did you review nursing and triage notes (agree or disagree)? Why? @ -I reviewed and agree with nursing and triage notes Were old charts reviewed (outside hosp., previous admission, EMS record, old EKG, old radiological studies, urgent care reports/EKG's, longterm records)? Report findings @ -No old charts were reviewed Differential Diagnosis (chest pain, altered mental status, abdominal pain women, abdominal pain men, vaginal bleeding, weakness, fever, dyspnea, syncope, headache, dizziness, GI bleed, back pain, seizure, CVA, palpatations, mental health)? @ -Palpitations, ACS, pneumothorax, pneumonia EKG interpreted by me (3pts min.). @ -As above X-rays interpreted by me (1pt min.). @ -Chest x-ray was obtained and was interpreted by myself showing no acute process. CT interpreted by me (1pt min.). @ -None done U/S interpreted by me (1pt. min.). @ -None done What testing was considered but not performed or refused? (CT, X-rays, U/S, labs)? Why? @ -None What meds were considered but not given or refused? Why? @ -None Did you discuss the management of the patient with other professionals (professionals i.e. , PA, CDL BULK DRIVER, lab, RT, psych nurse, social services director, electronic imaging system operator, teacher, air support control officer, embedded case manager)? Give summary @ -No Was smoking cessation discussed for >3mins.? @ -No Was critical care preformed (if so, how long)? @ -No Were there social determinants of health that impacted care today? How? (Homelessness, low income, unemployed, alcoholism, drug addiction, transportation, low edu. Level, literacy, decrease access to med. care, prison, rehab)? @ -No Was there de-escalation of care discussed even if they declined (Discuss DNR or withdrawal of care, Hospice)? DNR status @ -No What co-morbidities impacted this encounter? (DM, HTN, Smoking, COPD, CAD, Cancer, CVA, ARF, Chemo, Hep., AIDS, mental health diagnosis, sleep apnea, morbid obesity)? @ -Hypertension Was patient admitted / discharged? Hospital course, mention meds given and route, prescriptions, significant lab abnormalities, going to OR and other pertinent info. @ -The patient was seen and evaluated emergency department. Physical exam, the patient was resting in bed without any acute distress. Vital signs admission were stable. Due to the nature the patient's complaints, laboratory workup and imaging was obtained. All workup was negative. The chest x-ray was negative and EKG was no sinus rhythm. The patient remained on the monitor without any episodes of tachycardia or palpitations the patient was stable for discharge home. The patient was advised to follow-up with cardiology for further workup and evaluation. The patient was agreeable to this and all his questions were answered. The patient was discharged home in stable condition. Undiagnosed new problem with uncertain prognosis? @ -No Drug Therapy requiring intensive monitoring for toxicity (Heparin, Nitro, Insulin, Cardizem)? @ -No Were any procedures done? @ -No Diagnosis/symptom? @ -Palpitations, NOS Acute, or Chronic, or Acute on Chronic? @ -Acute Uncomplicated (without systemic symptoms) or Complicated (systemic symptoms)? @ -Uncomplicated Side effects of treatment? @ -No Exacerbation, Progression, or Severe Exacerbation? @ -No Poses a threat to life or bodily function? How? (Chest pain, [place], [place], pneumonia, PE, COPD, DKA, ARF, appy, cholecystitis, CVA, Diverticulitis, Homicidal, Suicidal, threat to staff... and all critical care pts) @ -No - Lab Data Result diagrams: 07/07/23 04:32 07/07/23 04:32 Lab Results 07/07/23 07/07/23 07/07/23 Range/Units 04:32 04:32 04:32 WBC 6.8 (3.8-10.6) k/uL RBC 4.98 (4.30-5.90) m/uL Hgb 14.6 (13.0-17.5) gm/dL Hct 44.7 (39.0-53.0) % MCV 89.8 (80.0-100.0) fL MCH 29.4 (25.0-35.0) pg MCHC 32.7 (31.0-37.0) g/dL RDW 12.9 (11.5-15.5) % Plt Count 248 (150-450) k/uL MPV 8.9 Neutrophils % 57 % Lymphocytes % 32 % Monocytes % 6 % Eosinophils % 4 % Basophils % 0 % Neutrophils # 3.9 (1.3-7.7) k/uL Lymphocytes # 2.1 (1.0-4.8) k/uL Monocytes # 0.4 (0-1.0) k/uL Eosinophils # 0.2 (0-0.7) k/uL Basophils # 0.0 (0-0.2) k/uL Sodium 136 L (137-145) mmol/L Potassium 3.8 (3.5-5.1) mmol/L Chloride 101 (98-107) mmol/L Carbon Dioxide 26 (22-30) mmol/L Anion Gap 9 mmol/L BUN 16 (9-20) mg/dL Creatinine 1.15 (0.66-1.25) mg/dL Est GFR (CKD-EPI)AfAm 88 (>60 ml/min/1.73 sqM) Est GFR (CKD-EPI)NonAf 76 (>60 ml/min/1.73 sqM) Glucose 382 H (74-99) mg/dL Calcium 9.4 (8.4-10.2) mg/dL Magnesium 1.9 (1.6-2.3) mg/dL Total Bilirubin 0.6 (0.2-1.3) mg/dL AST 23 (17-59) U/L ALT 18 (4-49) U/L Alkaline Phosphatase 90 (38-126) U/L Troponin I 0.014 (0.000-0.034) ng/mL Total Protein 7.3 (6.3-8.2) g/dL Albumin 3.9 (3.5-5.0) g/dL Disposition Clinical Impression: Palpitations Disposition: HOME SELF-CARE Condition: Stable Instructions (If sedation given, give patient instructions): Heart Palpitations (ED) Is patient prescribed a controlled substance at d/c from ED?: No Referrals: None,Stated [Primary Care Provider] - 1-2 days Lina Charles MD [STAFF PHYSICIAN] - 1-2 days Time of Disposition: 05:45
[2023-07-07 04:51] LABS: Basophils % (A) 0 %; Eosinophils # (A) 0.2 k/uL (0-0.7); Eosinophils % (A) 4 %; HCT 44.7 % (39.0-53.0); HGB 14.6 gm/dL (13.0-17.5); Lymphocytes # (A) 2.1 k/uL (1.0-4.8); Lymphocytes % (A) 32 %; MCH 29.4 pg (25.0-35.0); MCHC 32.7 g/dL (31.0-37.0); MCV 89.8 fL (80.0-100.0); Mean Platelet Volume 8.9; Monocytes # (A) 0.4 k/uL (0-1.0); Monocytes % (A) 6 %; Neutrophils # (A) 3.9 k/uL (1.3-7.7); Neutrophils % (A) 57 %; Platelet Count 248 k/uL (150-450); RBC 4.98 m/uL (4.30-5.90); RDW 12.9 % (11.5-15.5); WBC 6.8 k/uL (3.8-10.6)
[2023-07-07 05:10] LABS: ALT 18 U/L (4-49); AST 23 U/L (17-59); African American GFR (CKD) 88 (>60 ml/min/1.73 sqM); Albumin 3.9 g/dL (3.5-5.0); Alkaline Phosphatase 90 U/L (38-126); Anion Gap 9 mmol/L; Blood Urea Nitrogen 16 mg/dL (9-20); Calcium 9.4 mg/dL (8.4-10.2); Carbon Dioxide 26 mmol/L (22-30); Chloride 101 mmol/L (98-107); Glucose 382 mg/dL (74-99); Magnesium 1.9 mg/dL (1.6-2.3); Non-African American GFR(CKD) 76 (>60 ml/min/1.73 sqM); Potassium 3.8 mmol/L (3.5-5.1); Sodium 136 mmol/L (137-145); Total Bilirubin 0.6 mg/dL (0.2-1.3); Total Protein 7.3 g/dL (6.3-8.2)
[2023-07-07 06:25] VITALS: BP 109/74; PULSE 76; RESP 17; TEMP 98
--- NOTE | 2023-07-07 07:23 | XR ---
EXAMINATION TYPE: XR chest 2V DATE OF EXAM: 07/07/2023 5:06 AM CLINICAL INDICATION:Male, 48 years old with history of chest pain COMPARISON: Chest radiographs from 06/26/2023 TECHNIQUE: XR chest 2V Frontal and lateral views of the chest. FINDINGS: Lungs/Pleura: There is no evidence of pleural effusion, focal consolidation, or pneumothorax. Pulmonary vascularity: Unremarkable. Heart/mediastinum: Cardiomediastinal silhouette is unremarkable. Musculoskeletal: No acute osseous pathology. Other findings: None IMPRESSION: No acute cardiopulmonary disease/process.
== END 2023-07-07 06:27 | disposition home or self-care (01) ==
LOC: EC 04:02
DX: R00.2 Palpitations (principal); E10.9 Type 1 diabetes mellitus without complications; I10 Essential (primary) hypertension; I25.10 Atherosclerotic heart disease of native coronary artery without angina pectoris; I25.2 Old myocardial infarction; F17.200 Nicotine dependence, unspecified, uncomplicated; F12.90 Cannabis use, unspecified, uncomplicated; Z91.041 Radiographic dye allergy status
CPT/HCPCS: 36415; 71046; 80053; 83735; 84484; 85025; 93005; 99285

== ENCOUNTER 2023-07-10 15:48 | Emergency (ER) | payer OTHER ==
[2023-07-10 16:03] VITALS: RESP 18
[2023-07-10 18:48] VITALS: BP 131/84; PULSE 84; TEMP 98
[2023-07-10] MEDS ORDERED: SODIUM CHLORIDE 0.9% 1,000 ML IV ONE (19:04)
[2023-07-10 19:27] LABS: Basophils % (A) 1 %; Eosinophils # (A) 0.2 k/uL (0-0.7); Eosinophils % (A) 4 %; HCT 41.2 % (39.0-53.0); HGB 13.9 gm/dL (13.0-17.5); Lymphocytes % (A) 40 %; MCH 30.2 pg (25.0-35.0); MCHC 33.7 g/dL (31.0-37.0); MCV 89.5 fL (80.0-100.0); Mean Platelet Volume 8.7; Monocytes # (A) 0.3 k/uL (0-1.0); Monocytes % (A) 6 %; Neutrophils # (A) 2.4 k/uL (1.3-7.7); Neutrophils % (A) 46 %; Platelet Count 225 k/uL (150-450); RDW 12.9 % (11.5-15.5); WBC 5.1 k/uL (3.8-10.6)
[2023-07-10 19:46] LABS: ALT 16 U/L (4-49); AST 21 U/L (17-59); African American GFR (CKD) 83 (>60 ml/min/1.73 sqM); Albumin 3.3 g/dL (3.5-5.0); Alcohol <10 mg/dL; Alkaline Phosphatase 74 U/L (38-126); Anion Gap 8 mmol/L; Blood Urea Nitrogen 18 mg/dL (9-20); Calcium 8.9 mg/dL (8.4-10.2); Carbon Dioxide 23 mmol/L (22-30); Chloride 103 mmol/L (98-107); Glucose 285 mg/dL (74-99); Non-African American GFR(CKD) 72 (>60 ml/min/1.73 sqM); Potassium 3.8 mmol/L (3.5-5.1); Sodium 134 mmol/L (137-145); Total Bilirubin 0.5 mg/dL (0.2-1.3); Total Protein 6.4 g/dL (6.3-8.2)
--- NOTE | 2023-08-25 23:56 | ED ---
Dizziness HPI - General Chief Complaint: Dizziness Stated Complaint: dizziness Time Seen by Provider: 07/10/23 18:48 Source: patient Mode of arrival: ambulatory Limitations: no limitations - History of Present Illness Initial Comments: This patient is 48-year-old man who presents with complaint he is not feeling well. Patient notes that things had started when he woke up. He was feeling lightheaded. He feels generalized weakness fatigue. There is some mild bilateral lower back pain. Patient states his mouth feels dry and taste awful. Patient denies chest pain area no dyspnea. No fever or chills noted. No cough, leg pain or swelling. No change in urination or bowel movements noted MD Complaint: dizziness Onset/Timin -: hour(s) Timing: awoke with symptoms Description: lightheadedness History of Same: No History of Trauma: No Severity: mild Worsens With: movement Associated Symptoms: denies other symptoms - Related Data Home Medications Medication Instructions Recorded Confirmed Ergocalciferol (Vitamin D2) 1,250 mcg PO MO 02/15/23 07/10/23 [Drisdol (50,000 Iu)] Albuterol Inhaler [Ventolin Hfa 1 puff INHALATION RT-Q6H PRN 07/10/23 07/10/23 Inhaler] Cyclobenzaprine [Flexeril] 5 mg PO TID PRN 07/10/23 07/10/23 Previous Rx's Medication Instructions Recorded Aspirin 81 mg PO DAILY 30 Days #30 tab 02/17/23 Atorvastatin [Lipitor] 20 mg PO DAILY 30 Days #30 tab 05/12/23 Famotidine [Pepcid] 20 mg PO DAILY #30 tablet 05/12/23 Insulin Glargine,Hum.rec.anlog 50 units SQ HS 30 Days #1 each 05/12/23 [Lantus Solostar Pen] amLODIPine [Norvasc] 10 mg PO DAILY 30 Days #30 tab 05/12/23 rOPINIRole HCL [Requip] 0.25 mg PO HS 30 Days #30 tablet 05/12/23 Fenofibrate [Lofibra] 160 mg PO DAILY 30 Days #30 tablet 06/02/23 Insulin Aspart [NovoLOG Flexpen] 12 units SQ AC-TID 30 Days #1 each 06/02/23 Allergies Allergy/AdvReac Type Severity Reaction Status Date / Time blue dye AdvReac Rapid Verified 08/15/23 21:43 Heart Rate Review of Systems ROS Statement: Those systems with pertinent positive or pertinent negative responses have been documented in the HPI. ROS Other: All systems not noted in ROS Statement are negative. Constitutional: Reports: weakness. Denies: fever, chills Respiratory: Denies: cough, dyspnea Cardiovascular: Denies: chest pain, palpitations, edema Endocrine: Reports: fatigue Gastrointestinal: Denies: abdominal pain, vomiting, diarrhea Genitourinary: Denies: dysuria, hematuria Musculoskeletal: Reports: back pain Skin: Denies: rash Neurological: Denies: headache, weakness, numbness Past Medical History Past Medical History: Coronary Artery Disease (CAD), Diabetes Mellitus Additional Past Medical History / Comment(s): pt type 1 diabetes Last Myocardial Infarction Date:: 2021 History of Any Multi-Drug Resistant Organisms: None Reported Past Surgical History: Orthopedic Surgery Additional Past Surgical History / Comment(s): Knee surgey 1993 Past Anesthesia/Blood Transfusion Reactions: No Reported Reaction Past Psychological History: Schizophrenia Smoking Status: Current every day smoker Past Alcohol Use History: Occasional Past Drug Use History: Marijuana - Past Family History Father Family Medical History: Coronary Artery Disease (CAD) General Exam Limitations: no limitations General appearance: alert, in no apparent distress Head exam: Present: atraumatic, normocephalic Eye exam: Present: normal appearance. Absent: scleral icterus, conjunctival injection ENT exam: Present: mucous membranes dry Neck exam: Present: normal inspection, full ROM Respiratory exam: Present: normal lung sounds bilaterally. Absent: respiratory distress, wheezes, rales, rhonchi, stridor Cardiovascular Exam: Present: regular rate, normal rhythm, normal heart sounds. Absent: systolic murmur, diastolic murmur, rubs, gallop GI/Abdominal exam: Present: soft. Absent: distended, tenderness, guarding, rebound, rigid, mass Extremities exam: Present: normal inspection, normal capillary refill. Absent: pedal edema, calf tenderness Back exam: Present: normal inspection, paraspinal tenderness. Absent: CVA tenderness (R), CVA tenderness (L) Neurological exam: Present: alert, oriented X3, CN II-XII intact. Absent: motor sensory deficit Skin exam: Present: warm, dry, intact, normal color. Absent: rash Course Vital Signs 07/10/23 07/10/23 15:56 18:43 Temperature 97.8 F 98 F Pulse Rate 89 84 Respiratory 18 18 Rate Blood Pressure 132/84 131/84 O2 Sat by Pulse 100 100 Oximetry EKG Findings - EKG Results: EKG: interpreted by ERMD, sinus rhythm (With occasional PVC, Rate 72 bpm), normal axis, normal QRS - Blocks, [place], Hypertrophy, ST Abn: Repolarization changes or abnormalities: nonspecific abnormality, ST segment, and/or T wave Medical Decision Making - Medical Decision Making Patient is 48-year-old man presenting with constellation of symptoms. The exam does show patient appears to have some mild dehydration not severe. The patient had lab tests including troponin and intention was to obtain second troponin but patient eloped from emergency department prior to completing services. Was pt. sent in by a medical professional or institution (, PA, HOUSEKEEPING AND LAUNDRY TEAM LEADER, urgent care, hospital, or senior living...) When possible be specific @ -[No] Did you speak to anyone other than the patient for history (EMS, parent, family, police, friend...)? What history was obtained from this source @ -[No] Did you review nursing and triage notes (agree or disagree)? Why? @ -[I reviewed and agree with nursing and triage notes] Were old charts reviewed (outside hosp., previous admission, EMS record, old EKG, old radiological studies, urgent care reports/EKG's, senior living records)? Report findings @ -[No old charts were reviewed] Differential Diagnosis (chest pain, altered mental status, abdominal pain women, abdominal pain men, vaginal bleeding, weakness, fever, dyspnea, syncope, headache, dizziness, GI bleed, back pain, seizure, CVA, palpatations, mental health, musculoskeletal)? @ -[Differential Dizziness: Benign paroxysmal positional Vertigo, Menieres disease, otitis media, acoustic neuroma, vertebrobasilar insufficiency, cerebellar stroke, encephalitis, hypovolemic, arrhythmia, coronary artery syndrome, anemia, this is not meant to be an all-inclusive list EKG interpreted by me (3pts min.). @ -[I interpreted As above] X-rays interpreted by me (1pt min.). @ -[None done] CT interpreted by me (1pt min.). @ -[None done] U/S interpreted by me (1pt. min.). @ -[None done] What testing was considered but not performed or refused? (CT, X-rays, U/S, labs)? Why? @ -[None] What meds were considered but not given or refused? Why? @ -[None] Did you discuss the management of the patient with other professionals (professionals i.e. , PA, HOUSEKEEPING AND LAUNDRY TEAM LEADER, lab, RT, psych nurse, mental health social worker, hiv counselor, teacher, community arts officer, caseworker protective services)? Give summary @ -[No] Was smoking cessation discussed for >3mins.? @ -[No] Was critical care preformed (if so, how long)? @ -[No] Were there social determinants of health that impacted care today? How? (Homele ssness, low income, unemployed, alcoholism, drug addiction, transportation, low edu. Level, literacy, decrease access to med. care, care home, rehab)? @ -[No] Was there de-escalation of care discussed even if they declined (Discuss DNR or withdrawal of care, Hospice)? DNR status @ -[No] What co-morbidities impacted this encounter? (DM, HTN, Smoking, COPD, CAD, Cancer, CVA, ARF, Chemo, Hep., AIDS, mental health diagnosis, sleep apnea, morbid obesity)? @ -[None] Was patient admitted / discharged? Hospital course, mention meds given and route, prescriptions, significant lab abnormalities, going to OR and other pertinent info. @ -[See above, patient eloped Undiagnosed new problem with uncertain prognosis? @ -[No] Drug Therapy requiring intensive monitoring for toxicity (Heparin, Nitro, Insulin, Cardizem)? @ -[No] Were any procedures done? @ -[No] Diagnosis/symptom? @ -[Hyperglycemia Acute, or Chronic, or Acute on Chronic? @ -[default] Uncomplicated (without systemic symptoms) or Complicated (systemic symptoms)? @ -[default] Side effects of treatment? @ -[No] Exacerbation, Progression, or Severe Exacerbation? @ -[No] Poses a threat to life or bodily function? How? (Chest pain, [place], [place], pneumonia, PE, COPD, DKA, ARF, appy, cholecystitis, CVA, Diverticulitis, Homicidal, Suicidal, threat to staff... and all critical care pts) @ -[Undetermined as patient left without completing treatment - Lab Data Result diagrams: 07/10/23 19:14 07/10/23 19:14 Lab Results 07/10/23 07/10/23 07/10/23 Range/Units 19:14 19:14 19:14 WBC 5.1 (3.8-10.6) k/uL RBC 4.60 (4.30-5.90) m/uL Hgb 13.9 (13.0-17.5) gm/dL Hct 41.2 (39.0-53.0) % MCV 89.5 (80.0-100.0) fL MCH 30.2 (25.0-35.0) pg MCHC 33.7 (31.0-37.0) g/dL RDW 12.9 (11.5-15.5) % Plt Count 225 (150-450) k/uL MPV 8.7 Neutrophils % 46 % Lymphocytes % 40 % Monocytes % 6 % Eosinophils % 4 % Basophils % 1 % Neutrophils # 2.4 (1.3-7.7) k/uL Lymphocytes # 2.0 (1.0-4.8) k/uL Monocytes # 0.3 (0-1.0) k/uL Eosinophils # 0.2 (0-0.7) k/uL Basophils # 0.0 (0-0.2) k/uL Sodium 134 L (137-145) mmol/L Potassium 3.8 (3.5-5.1) mmol/L Chloride 103 (98-107) mmol/L Carbon Dioxide 23 (22-30) mmol/L Anion Gap 8 mmol/L BUN 18 (9-20) mg/dL Creatinine 1.20 (0.66-1.25) mg/dL Est GFR (CKD-EPI)AfAm 83 (>60 ml/min/1.73 sqM) Est GFR (CKD-EPI)NonAf 72 (>60 ml/min/1.73 sqM) Glucose 285 H (74-99) mg/dL Plasma Lactic Acid Alirio 1.6 (0.7-2.0) mmol/L Calcium 8.9 (8.4-10.2) mg/dL Total Bilirubin 0.5 (0.2-1.3) mg/dL AST 21 (17-59) U/L ALT 16 (4-49) U/L Alkaline Phosphatase 74 (38-126) U/L Troponin I (0.000-0.034) ng/mL Total Protein 6.4 (6.3-8.2) g/dL Albumin 3.3 L (3.5-5.0) g/dL Serum Alcohol <10 mg/dL Acetone, Qual Negative (Negative) 07/10/23 Range/Units 19:14 WBC (3.8-10.6) k/uL RBC (4.30-5.90) m/uL Hgb (13.0-17.5) gm/dL Hct (39.0-53.0) % MCV (80.0-100.0) fL MCH (25.0-35.0) pg MCHC (31.0-37.0) g/dL RDW (11.5-15.5) % Plt Count (150-450) k/uL MPV Neutrophils % % Lymphocytes % % Monocytes % % Eosinophils % % Basophils % % Neutrophils # (1.3-7.7) k/uL Lymphocytes # (1.0-4.8) k/uL Monocytes # (0-1.0) k/uL Eosinophils # (0-0.7) k/uL Basophils # (0-0.2) k/uL Sodium (137-145) mmol/L Potassium (3.5-5.1) mmol/L Chloride (98-107) mmol/L Carbon Dioxide (22-30) mmol/L Anion Gap mmol/L BUN (9-20) mg/dL Creatinine (0.66-1.25) mg/dL Est GFR (CKD-EPI)AfAm (>60 ml/min/1.73 sqM) Est GFR (CKD-EPI)NonAf (>60 ml/min/1.73 sqM) Glucose (74-99) mg/dL Plasma Lactic Acid Alirio (0.7-2.0) mmol/L Calcium (8.4-10.2) mg/dL Total Bilirubin (0.2-1.3) mg/dL AST (17-59) U/L ALT (4-49) U/L Alkaline Phosphatase (38-126) U/L Troponin I 0.013 (0.000-0.034) ng/mL Total Protein (6.3-8.2) g/dL Albumin (3.5-5.0) g/dL Serum Alcohol mg/dL Acetone, Qual (Negative) Disposition Clinical Impression: Diabetes mellitus Disposition: LEFT AGAINST MEDICAL ADVICE Condition: Undetermined Referrals: None,Stated [Primary Care Provider] - 1-2 days
== END 2023-07-10 23:48 | disposition left against medical advice (07) ==
LOC: EC 15:48
DX: E10.9 Type 1 diabetes mellitus without complications (principal); E86.0 Dehydration; I25.10 Atherosclerotic heart disease of native coronary artery without angina pectoris; I25.2 Old myocardial infarction; F17.200 Nicotine dependence, unspecified, uncomplicated; F12.90 Cannabis use, unspecified, uncomplicated; Z53.29 Procedure and treatment not carried out because of patient's decision for other reasons; Z79.899 Other long term (current) drug therapy; Z91.041 Radiographic dye allergy status
CPT/HCPCS: 36415; 93005; 80053; 82009; 83605; 84484; 85025; 99284; 96360; G0480; 80320

== ENCOUNTER 2023-08-15 20:59 | Emergency (ER) | payer OTHER ==
[2023-08-15 21:43] VITALS: TEMP 98.3
--- NOTE | 2023-08-15 22:17 | XR ---
EXAMINATION TYPE: XR chest 2V DATE OF EXAM: 08/15/2023 COMPARISON: Chest x-ray July 07, 2023 HISTORY: Chest pain. TECHNIQUE: Frontal and lateral views of the chest are obtained. FINDINGS: There is no suspicious focal air space opacity, pleural effusion, or pneumothorax seen. T he cardiac silhouette size is stable and within normal limits. The osseous structures are intact. IMPRESSION: No acute process. No significant change from prior.
[2023-08-15 22:56] LABS: ALT 12 U/L (4-49); AST 19 U/L (17-59); African American GFR (CKD) 82 (>60 ml/min/1.73 sqM); Albumin 3.3 g/dL (3.5-5.0); Alkaline Phosphatase 95 U/L (38-126); Amylase 54 U/L (30-110); Anion Gap 5 mmol/L; Blood Urea Nitrogen 17 mg/dL (9-20); Carbon Dioxide 29 mmol/L (22-30); Chloride 101 mmol/L (98-107); Glucose 264 mg/dL (74-99); Lipase 47 U/L (23-300); Non-African American GFR(CKD) 71 (>60 ml/min/1.73 sqM); Sodium 135 mmol/L (137-145); Total Bilirubin 0.6 mg/dL (0.2-1.3); Total Protein 6.4 g/dL (6.3-8.2)
[2023-08-15 23:02] LABS: Basophils % (A) 1 %; Eosinophils # (A) 0.1 k/uL (0-0.7); Eosinophils % (A) 2 %; HCT 45.8 % (39.0-53.0); Lymphocytes % (A) 34 %; MCH 29.1 pg (25.0-35.0); MCHC 32.7 g/dL (31.0-37.0); MCV 89.1 fL (80.0-100.0); Mean Platelet Volume 9.7; Monocytes # (A) 0.4 k/uL (0-1.0); Monocytes % (A) 7 %; Neutrophils # (A) 3.2 k/uL (1.3-7.7); Neutrophils % (A) 54 %; Platelet Count 260 k/uL (150-450); RBC 5.14 m/uL (4.30-5.90); RDW 13.1 % (11.5-15.5); WBC 5.9 k/uL (3.8-10.6)
--- NOTE | 2023-08-15 23:50 | ED ---
General Adult HPI - General Chief complaint: Abdominal Pain Stated complaint: Chest Pain, Facial Swelling Time Seen by Provider: 08/15/23 23:39 Source: patient, RN notes reviewed, old records reviewed Mode of arrival: ambulatory Limitations: no limitations - History of Present Illness Initial comments: 48-year-old male presenting for evaluation of left upper abdominal pain and nausea vomiting. Patient states that he has had symptoms for the past several years of left upper quadrant abdominal pain. He denies any recent change. He states he does not currently have a primary care physician. He denies central chest pain. Denies dyspnea. States the symptoms have been present for at least 2-3 years and are constant. - Related Data Home Medications Medication Instructions Recorded Confirmed Ergocalciferol (Vitamin D2) 1,250 mcg PO MO 02/15/23 07/10/23 [Drisdol (50,000 Iu)] Albuterol Inhaler [Ventolin Hfa 1 puff INHALATION RT-Q6H PRN 07/10/23 07/10/23 Inhaler] Cyclobenzaprine [Flexeril] 5 mg PO TID PRN 07/10/23 07/10/23 Previous Rx's Medication Instructions Recorded Aspirin 81 mg PO DAILY 30 Days #30 tab 02/17/23 Atorvastatin [Lipitor] 20 mg PO DAILY 30 Days #30 tab 05/12/23 Famotidine [Pepcid] 20 mg PO DAILY #30 tablet 05/12/23 Insulin Glargine,Hum.rec.anlog 50 units SQ HS 30 Days #1 each 05/12/23 [Lantus Solostar Pen] amLODIPine [Norvasc] 10 mg PO DAILY 30 Days #30 tab 05/12/23 rOPINIRole HCL [Requip] 0.25 mg PO HS 30 Days #30 tablet 05/12/23 Fenofibrate [Lofibra] 160 mg PO DAILY 30 Days #30 tablet 06/02/23 Insulin Aspart [NovoLOG Flexpen] 12 units SQ AC-TID 30 Days #1 each 06/02/23 Allergies Allergy/AdvReac Type Severity Reaction Status Date / Time blue dye AdvReac Rapid Verified 08/15/23 21:43 Heart Rate Review of Systems ROS Statement: Those systems with pertinent positive or pertinent negative responses have been documented in the HPI. ROS Other: All systems not noted in ROS Statement are negative. Past Medical History Past Medical History: Coronary Artery Disease (CAD), Diabetes Mellitus Additional Past Medical History / Comment(s): pt type 1 diabetes Last Myocardial Infarction Date:: 2021 History of Any Multi-Drug Resistant Organisms: None Reported Past Surgical History: Orthopedic Surgery Additional Past Surgical History / Comment(s): Knee surgey 1993 Past Anesthesia/Blood Transfusion Reactions: No Reported Reaction Past Psychological History: Schizophrenia Smoking Status: Current every day smoker Past Alcohol Use History: Occasional Past Drug Use History: Marijuana - Past Family History Father Family Medical History: Coronary Artery Disease (CAD) General Exam Limitations: no limitations General appearance: alert, in no apparent distress Head exam: Present: atraumatic, normocephalic Eye exam: Present: normal appearance, PERRL ENT exam: Present: normal exam Neck exam: Present: normal inspection. Absent: tenderness, meningismus Respiratory exam: Present: normal lung sounds bilaterally. Absent: respiratory distress, wheezes Cardiovascular Exam: Present: regular rate, normal rhythm GI/Abdominal exam: Present: soft. Absent: distended, tenderness, guarding, rebound Extremities exam: Present: normal inspection, normal capillary refill Back exam: Present: normal inspection Neurological exam: Present: alert, oriented X3 Psychiatric exam: Present: flat affect Skin exam: Present: warm, dry, intact. Absent: cyanosis, diaphoretic Course Vital Signs 08/15/23 08/15/23 21:40 23:50 Temperature 98.3 F Pulse Rate 77 71 Respiratory 18 18 Rate Blood Pressure 173/113 138/99 O2 Sat by Pulse 100 Oximetry Medical Decision Making - Medical Decision Making Was pt. sent in by a medical professional or institution (, PA, SCREENING NURSE, urgent care, hospital, or [place] [facility] facility...) When possible be specific @ -[No] Did you speak to anyone other than the patient for history (EMS, parent, family, police, friend...)? What history was obtained from this source @ -[No] Did you review nursing and triage notes (agree or disagree)? Why? @ -[I reviewed and agree with nursing and triage notes] Were old charts reviewed (outside hosp., previous admission, EMS record, old EKG, old radiological studies, urgent care reports/EKG's, [place] [facility] facility records)? Report findings @ -[No old charts were reviewed] Differential Diagnosis (chest pain, altered mental status, abdominal pain women, abdominal pain men, vaginal bleeding, weakness, fever, dyspnea, syncope, headache, dizziness, GI bleed, back pain, seizure, CVA, palpatations, mental health, musculoskeletal)? @ Differential Abdominal Pain Men: Appendicitis, cholecystitis, diverticulosis, ischemic bowel, pancreatitis, hepatitis, UTI, gastroenteritis, AAA, incarcerated hernia, bowel obstruction, constipation, inflammatory bowel, hepatitis, peptic ulcer disease, splenic infarction, perforated viscus, testicular torsion, this is not meant to be an all-inclusive list EKG interpreted by me (3pts min.). @ Sinus rhythm rate of 74, AR interval 157, QRS duration 90, QTC 4:30, T-wave inversion in lead [address] segment elevation. X-rays interpreted by me (1pt min.). @ -[None done] CT interpreted by me (1pt min.). @ -Chest x-ray performed, negative for acute cardiac primary findings. U/S interpreted by me (1pt. min.). @ -[None done] What testing was considered but not performed or refused? (CT, X-rays, U/S, labs)? Why? @ -[None] What meds were considered but not given or refused? Why? @ -[None] Did you discuss the management of the patient with other professionals (professionals i.e. , PA, SCREENING NURSE, lab, RT, psych nurse, geriatric social worker, lens fabricating machine tender, teacher, second officer, rn case mgr)? Give summary @ -[No] Was smoking cessation discussed for >3mins.? @ -[No] Was critical care preformed (if so, how long)? @ -[No] Were there social determinants of health that impacted care today? How? (Homelessness, low income, unemployed, alcoholism, drug addiction, transportation, low edu. Level, literacy, decrease access to med. care, senior care, rehab)? @ -[No] Was there de-escalation of care discussed even if they declined (Discuss DNR or withdrawal of care, Hospice)? DNR status @ -[No] What co-morbidities impacted this encounter? (DM, HTN, Smoking, COPD, CAD, Cancer, CVA, ARF, Chemo, Hep., AIDS, mental health diagnosis, sleep apnea, morbid obesity)? @ HTN, diabetes Was patient admitted / discharged? Hospital course, mention meds given and route, prescriptions, significant lab abnormalities, going to OR and other pertinent info. @ -48-year-old male with left upper quadrant abdominal pain which she states is been present for the past several years. He does call this chest pain but when he points it is in the left upper abdomen. No central chest pain. EKG sinus rhythm without ST segment elevation. Patient has no abdominal tenderness on exam. His lungs are clear to auscultation. Initial triage blood pressure is elevated but this is significantly improved on repeat without testing. Given the chronicity of his symptoms in the normal workup today I do feel this is stable for outpatient follow-up. Patient's referred to several primary care providers in the area. Return parameters discussed. Undiagnosed new problem with uncertain prognosis? @ -[No] Drug Therapy requiring intensive monitoring for toxicity (Heparin, Nitro, Insulin, Cardizem)? @ -[No] Were any procedures done? @ -[No] Diagnosis/symptom? @ -[default] Acute, or Chronic, or Acute on Chronic? @ -[default] Uncomplicated (without systemic symptoms) or Complicated (systemic symptoms)? @ -[default] Side effects of treatment? @ -[No] Exacerbation, Progression, or Severe Exacerbation? @ -[No] Poses a threat to life or bodily function? How? (Chest pain, [place], [place], pneumonia, PE, COPD, DKA, ARF, appy, cholecystitis, CVA, Diverticulitis, Homicidal, Suicidal, threat to staff... and all critical care pts) @ -[No] - Lab Data Result diagrams: 08/15/23 21:56 08/15/23 21:56 Lab Results 08/15/23 08/15/23 08/15/23 Range/Units 21:56 21:56 21:56 WBC 5.9 (3.8-10.6) k/uL RBC 5.14 (4.30-5.90) m/uL Hgb 15.0 (13.0-17.5) gm/dL Hct 45.8 (39.0-53.0) % MCV 89.1 (80.0-100.0) fL MCH 29.1 (25.0-35.0) pg MCHC 32.7 (31.0-37.0) g/dL RDW 13.1 (11.5-15.5) % Plt Count 260 (150-450) k/uL MPV 9.7 Neutrophils % 54 % Lymphocytes % 34 % Monocytes % 7 % Eosinophils % 2 % Basophils % 1 % Neutrophils # 3.2 (1.3-7.7) k/uL Lymphocytes # 2.0 (1.0-4.8) k/uL Monocytes # 0.4 (0-1.0) k/uL Eosinophils # 0.1 (0-0.7) k/uL Basophils # 0.0 (0-0.2) k/uL Sodium 135 L (137-145) mmol/L Potassium 5.0 (3.5-5.1) mmol/L Chloride 101 (98-107) mmol/L Carbon Dioxide 29 (22-30) mmol/L Anion Gap 5 mmol/L BUN 17 (9-20) mg/dL Creatinine 1.22 (0.66-1.25) mg/dL Est GFR (CKD-EPI)AfAm 82 (>60 ml/min/1.73 sqM) Est GFR (CKD-EPI)NonAf 71 (>60 ml/min/1.73 sqM) Glucose 264 H (74-99) mg/dL Plasma Lactic Acid Alirio 1.3 (0.7-2.0) mmol/L Calcium 9.0 (8.4-10.2) mg/dL Total Bilirubin 0.6 (0.2-1.3) mg/dL AST 19 (17-59) U/L ALT 12 (4-49) U/L Alkaline Phosphatase 95 (38-126) U/L Troponin I (0.000-0.034) ng/mL Total Protein 6.4 (6.3-8.2) g/dL Albumin 3.3 L (3.5-5.0) g/dL Amylase 54 (30-110) U/L Lipase 47 (23-300) U/L 08/15/23 Range/Units 21:56 WBC (3.8-10.6) k/uL RBC (4.30-5.90) m/uL Hgb (13.0-17.5) gm/dL Hct (39.0-53.0) % MCV (80.0-100.0) fL MCH (25.0-35.0) pg MCHC (31.0-37.0) g/dL RDW (11.5-15.5) % Plt Count (150-450) k/uL MPV Neutrophils % % Lymphocytes % % Monocytes % % Eosinophils % % Basophils % % Neutrophils # (1.3-7.7) k/uL Lymphocytes # (1.0-4.8) k/uL Monocytes # (0-1.0) k/uL Eosinophils # (0-0.7) k/uL Basophils # (0-0.2) k/uL Sodium (137-145) mmol/L Potassium (3.5-5.1) mmol/L Chloride (98-107) mmol/L Carbon Dioxide (22-30) mmol/L Anion Gap mmol/L BUN (9-20) mg/dL Creatinine (0.66-1.25) mg/dL Est GFR (CKD-EPI)AfAm (>60 ml/min/1.73 sqM) Est GFR (CKD-EPI)NonAf (>60 ml/min/1.73 sqM) Glucose (74-99) mg/dL Plasma Lactic Acid Alirio (0.7-2.0) mmol/L Calcium (8.4-10.2) mg/dL Total Bilirubin (0.2-1.3) mg/dL AST (17-59) U/L ALT (4-49) U/L Alkaline Phosphatase (38-126) U/L Troponin I <0.012 (0.000-0.034) ng/mL Total Protein (6.3-8.2) g/dL Albumin (3.5-5.0) g/dL Amylase (30-110) U/L Lipase (23-300) U/L Disposition Clinical Impression: Diabetes mellitus, Abdominal pain Disposition: HOME SELF-CARE Condition: Good Instructions (If sedation given, give patient instructions): Abdominal Pain (ED) Is patient prescribed a controlled substance at d/c from ED?: No Referrals: None,Stated [Primary Care Provider] - 1-2 days Sean Dooley MD [REFERRING] - 1-2 days Vivek Teixeira MD [STAFF PHYSICIAN] - 1-2 days Time of Disposition: 23:58
[2023-08-16 00:32] VITALS: BP 128/84; PULSE 69; RESP 16
== END 2023-08-16 00:13 | disposition home or self-care (01) ==
LOC: EC 20:59
DX: R10.12 Left upper quadrant pain (principal); E10.9 Type 1 diabetes mellitus without complications; I25.10 Atherosclerotic heart disease of native coronary artery without angina pectoris; F17.200 Nicotine dependence, unspecified, uncomplicated; F12.90 Cannabis use, unspecified, uncomplicated; Z79.899 Other long term (current) drug therapy; Z91.041 Radiographic dye allergy status
CPT/HCPCS: 36415; 71046; 80053; 82150; 83605; 83690; 84484; 85025; 93005; 99284

== ENCOUNTER 2023-08-30 15:30 | Inpatient (IN) | payer OTHER ==
--- NOTE | 2023-08-30 16:16 | ED ---
General Adult HPI - General Chief complaint: Chest Pain Stated complaint: Chest pain; headache; weakness Time Seen by Provider: 08/30/23 15:45 Source: patient Mode of arrival: ambulatory Limitations: no limitations - History of Present Illness Initial comments: Dictation was produced using [employer] dictation software. please excuse any grammatical, word or spelling errors. Chief Complaint: 48-year-old male presents emergency department for chest pain History of Present Illness: 48-year-old male well-known to emergency department for multiple visitations for chest pain presents to the emergency department for chest pain. Patient states that he is currently asymptomatic. States it is pressure to substernal area. Nonradiating but associated with nausea. Not associated with diaphoresis. He does report having a history of coronary artery disease and myocardial infarction. Reports the pain as a dull ache that lasted for several minutes however resolved. The ROS documented in this emergency department record has been reviewed and confirmed by me. Those systems with pertinent positive or negative responses have been documented in the HPI. All other systems are other negative and/or noncontributory. - Related Data Home Medications Medication Instructions Recorded Confirmed No Known Home Medications 08/30/23 08/30/23 Allergies Allergy/AdvReac Type Severity Reaction Status Date / Time blue dye AdvReac Rapid Verified 08/30/23 19:08 Heart Rate Review of Systems ROS Statement: Those systems with pertinent positive or pertinent negative responses have been documented in the HPI. ROS Other: All systems not noted in ROS Statement are negative. Past Medical History Past Medical History: Coronary Artery Disease (CAD), Diabetes Mellitus Additional Past Medical History / Comment(s): pt type 1 diabetes Last Myocardial Infarction Date:: 2021 History of Any Multi-Drug Resistant Organisms: None Reported Past Surgical History: Orthopedic Surgery Additional Past Surgical History / Comment(s): Knee surgey 1993 Past Anesthesia/Blood Transfusion Reactions: No Reported Reaction Past Psychological History: Schizophrenia Smoking Status: Current every day smoker Past Alcohol Use History: Occasional Past Drug Use History: Marijuana - Past Family History Father Family Medical History: Coronary Artery Disease (CAD) General Exam - General Exam Comments Initial Comments: PHYSICAL EXAM: General Impression: Alert and oriented x3, not in acute distress HEENT: Normocephalic atraumatic, extra-ocular movements intact, pupils equal and reactive to light bilaterally, mucous membranes moist. Cardiovascular: Heart regular rate and rhythm Chest: Able to complete full sentences, no retractions, no tachypnea Abdomen: abdomen soft, non-tender, non-distended, no organomegaly Musculoskeletal: Pulses present and equal in all extremities, no peripheral edema Motor: no focal deficits noted Neurological: CN II-XII grossly intact, no focal motor or sensory deficits noted Skin: Intact with no visualized rashes Psych: Normal affect and mood Limitations: no limitations Course Vital Signs 08/30/23 08/30/23 08/30/23 15:32 16:12 16:18 Temperature 97.6 F Pulse Rate 82 71 Pulse Rate [ 71 Service Delivery Analyst ] Respiratory 18 18 Rate Blood Pressure 163/94 172/102 O2 Sat by Pulse 100 98 Oximetry 08/30/23 08/30/23 17:42 18:57 Temperature Pulse Rate 87 84 Pulse Rate [ Service Delivery Analyst ] Respiratory 18 18 Rate Blood Pressure 159/84 144/67 O2 Sat by Pulse 99 96 Oximetry - Reevaluation(s) Reevaluation #1: 08/30/23 16:15 Patient seen and evaluated at the bedside upon initial arrival. Vital signs are unremarkable. Patient's well-appearing at the bedside. EKG shows no signs of ischemia or infarction. Stress tests documentation read from 06/02/2023 is unremarkable for any abnormalities. EKG Findings - EKG Comments: EKG Findings:: My EKG interpretation: Ventricular rate 74, sinus rhythm,. 150, QRS 106, QTC 444. No MA prolongation, no QTC prolongation, no ST or T-wave [place] nges noted. EKG compared to 08/15/2023 showing no changes. Overall, this EKG is unremarkable Medical Decision Making - Medical Decision Making Was pt. sent in by a medical professional or institution (, PA, CONCRETE SMOOTHER, urgent care, hospital, or senior living...) When possible be specific @ -No Did you speak to anyone other than the patient for history (EMS, parent, family, police, friend...)? What history was obtained from this source @ -No Did you review nursing and triage notes (agree or disagree)? Why? @ -I reviewed and agree with nursing and triage notes Were old charts reviewed (outside hosp., previous admission, EMS record, old EKG, old radiological studies, urgent care reports/EKG's, senior living records)? Report findings @ -No old charts were reviewed Differential Diagnosis (chest pain, altered mental status, abdominal pain women, abdominal pain men, vaginal bleeding, musculoskeletal, weakness, fever, dyspnea, syncope, headache, dizziness, GI bleed, back pain, seizure, CVA, palpatations, mental health)? @ -Differential Chest Pain: Stable Angina, Unstable Angina, STEMI, NSTEMI Aortic Dissection, Pneumothorax, Musculoskeletal, Esophageal Spasm GERD, Cholecystitis, Pancreatitis, Zoster, this is not meant to be an all-inclusive list. EKG interpreted by me (3pts min.). @ -as above X-rays interpreted by me (1pt min.). @ -Chest x-ray shows no acute processes CT interpreted by me (1pt min.). @ -CT brain is negative for acute processes U/S interpreted by me (1pt. min.). @ -None done What testing was considered but not performed or refused? (CT, X-rays, U/S, labs)? Why? @ -None What meds were considered but not given or refused? Why? @ -None Did you discuss the management of the patient with other professionals (professionals i.e. , PA, CONCRETE SMOOTHER, lab, RT, psych nurse, social media developer, elementary secretary, teacher, medical officer, case coordinator)? Give summary @ -Case discussed with hospitalist for admission Was smoking cessation discussed for >3mins.? @ -No Was critical care preformed (if so, how long)? @ -yes 33 minutes Were there social determinants of health that impacted care today? How? (Homelessness, low income, unemployed, alcoholism, drug addiction, transportation, low edu. Level, literacy, decrease access to med. care, skilled nursing, rehab)? @ -No Was there de-escalation of care discussed even if they declined (Discuss DNR or withdrawal of care, Hospice)? DNR status @ -No What co-morbidities impacted this encounter? (DM, HTN, Smoking, COPD, CAD, Cancer, CVA, ARF, Chemo, Hep., AIDS, mental health diagnosis, sleep apnea, morbid obesity)? @ -None Was patient admitted / discharged? Hospital course, mention meds given and route, prescriptions, significant lab abnormalities, going to OR and other pertinent info. @ -48-year-old now presents to the for with chest pain. His presentation is atypical chest pain typical features. He does report history of coronary artery disease. Vital signs stable. EKG is unremarkable. Patient asymptomatic at bedside. Laboratory evaluation obtained. CBC unremarkable. Metabolic panel is unremarkable. Initial troponin is 0.019. Repeat troponin is 0.036. Clinical presentation consistent with nstemi. Patient will be admitted with constipation cardiology. Undiagnosed new problem with uncertain prognosis? @ -No Drug Therapy requiring intensive monitoring for toxicity (Heparin, Nitro, Insulin, Cardizem)? @ -No Were any procedures done? @ -No Diagnosis/symptom? Acute, or Chronic, or Acute on Chronic? Uncomplicated (without systemic symptoms) or Complicated (systemic symptoms)? @ -nstemi Side effects of treatment? @ -No Exacerbation, Progression, or Severe Exacerbation? @ -No Poses a threat to life or bodily function? How? (Chest pain, [place], [place], pneumonia, PE, COPD, DKA, ARF, appy, cholecystitis, CVA, Diverticulitis, Homicidal, Suici keerthi, threat to staff... and all critical care pts) @ -yes - Lab Data Result diagrams: 08/30/23 16:15 08/30/23 16:15 Lab Results 08/30/23 08/30/23 08/30/23 Range/Units 16:15 16:15 16:15 WBC 6.8 (3.8-10.6) k/uL RBC 5.14 (4.30-5.90) m/uL Hgb 15.8 (13.0-17.5) gm/dL Hct 46.4 (39.0-53.0) % MCV 90.3 (80.0-100.0) fL MCH 30.8 (25.0-35.0) pg MCHC 34.1 (31.0-37.0) g/dL RDW 13.1 (11.5-15.5) % Plt Count 232 (150-450) k/uL MPV 9.3 Neutrophils % 49 % Lymphocytes % 41 % Monocytes % 6 % Eosinophils % 2 % Basophils % 0 % Neutrophils # 3.3 (1.3-7.7) k/uL Lymphocytes # 2.8 (1.0-4.8) k/uL Monocytes # 0.4 (0-1.0) k/uL Eosinophils # 0.1 (0-0.7) k/uL Basophils # 0.0 (0-0.2) k/uL PT 9.9 L (10.0-12.5) sec INR 0.9 (<1.2) APTT 27.9 (22.0-30.0) sec Sodium 134 L (137-145) mmol/L Potassium 4.8 (3.5-5.1) mmol/L Chloride 103 (98-107) mmol/L Carbon Dioxide 23 (22-30) mmol/L Anion Gap 8 mmol/L BUN 31 H (9-20) mg/dL Creatinine 1.12 (0.66-1.25) mg/dL Est GFR (CKD-EPI)AfAm >90 (>60 ml/min/1.73 sqM) Est GFR (CKD-EPI)NonAf 78 (>60 ml/min/1.73 sqM) Glucose 347 H (74-99) mg/dL Calcium 9.1 (8.4-10.2) mg/dL Magnesium 1.9 (1.6-2.3) mg/dL Total Bilirubin 0.8 (0.2-1.3) mg/dL AST 25 (17-59) U/L ALT 16 (4-49) U/L Alkaline Phosphatase 93 (38-126) U/L Troponin I (0.000-0.034) ng/mL Total Protein 7.1 (6.3-8.2) g/dL Albumin 3.8 (3.5-5.0) g/dL 08/30/23 08/30/23 Range/Units 16:15 20:08 WBC (3.8-10.6) k/uL RBC (4.30-5.90) m/uL Hgb (13.0-17.5) gm/dL Hct (39.0-53.0) % MCV (80.0-100.0) fL MCH (25.0-35.0) pg MCHC (31.0-37.0) g/dL RDW (11.5-15.5) % Plt Count (150-450) k/uL MPV Neutrophils % % Lymphocytes % % Monocytes % % Eosinophils % % Basophils % % Neutrophils # (1.3-7.7) k/uL Lymphocytes # (1.0-4.8) k/uL Monocytes # (0-1.0) k/uL Eosinophils # (0-0.7) k/uL Basophils # (0-0.2) k/uL PT (10.0-12.5) sec INR (<1.2) APTT (22.0-30.0) sec Sodium (137-145) mmol/L Potassium (3.5-5.1) mmol/L Chloride (98-107) mmol/L Carbon Dioxide (22-30) mmol/L Anion Gap mmol/L BUN (9-20) mg/dL Creatinine (0.66-1.25) mg/dL Est GFR (CKD-EPI)AfAm (>60 ml/min/1.73 sqM) Est GFR (CKD-EPI)NonAf (>60 ml/min/1.73 sqM) Glucose (74-99) mg/dL Calcium (8.4-10.2) mg/dL Magnesium (1.6-2.3) mg/dL Total Bilirubin (0.2-1.3) mg/dL AST (17-59) U/L ALT (4-49) U/L Alkaline Phosphatase (38-126) U/L Troponin I 0.019 0.036 H* (0.000-0.034) ng/mL Total Protein (6.3-8.2) g/dL Albumin (3.5-5.0) g/dL Disposition Clinical Impression: NSTEMI (non-ST elevated myocardial infarction) Disposition: ADMITTED IP TO THIS [facility] Condition: Fair Referrals: None,Stated [Primary Care Provider] - 1-2 days Decision Time: 21:30
[2023-08-30 16:41] LABS: Basophils % (A) 0 %; Eosinophils # (A) 0.1 k/uL (0-0.7); Eosinophils % (A) 2 %; HCT 46.4 % (39.0-53.0); HGB 15.8 gm/dL (13.0-17.5); Lymphocytes # (A) 2.8 k/uL (1.0-4.8); Lymphocytes % (A) 41 %; MCH 30.8 pg (25.0-35.0); MCHC 34.1 g/dL (31.0-37.0); MCV 90.3 fL (80.0-100.0); Mean Platelet Volume 9.3; Monocytes # (A) 0.4 k/uL (0-1.0); Monocytes % (A) 6 %; Neutrophils # (A) 3.3 k/uL (1.3-7.7); Neutrophils % (A) 49 %; Platelet Count 232 k/uL (150-450); RBC 5.14 m/uL (4.30-5.90); RDW 13.1 % (11.5-15.5); WBC 6.8 k/uL (3.8-10.6)
--- NOTE | 2023-08-30 16:45 | XR ---
EXAMINATION TYPE: XR chest 2V DATE OF EXAM: 08/30/2023 4:32 PM CLINICAL INDICATION:Male, 48 years old with history of Chest Pain; COMPARISON: Chest radiographs from 08/15/2023 TECHNIQUE: XR chest 2V Frontal and lateral views of the chest. FINDINGS: Lungs/Pleura: There is no evidence of pleural effusion, focal consolidation, or pneumothorax. Pulmonary vascularity: Unremarkable. Heart/mediastinum: Cardiomediastinal silhouette is unremarkable. Musculoskeletal: No acute osseous pathology. IMPRESSION: No acute cardiopulmonary disease/process.
[2023-08-30 16:49] LABS: INR 0.9 (<1.2); Partial Thromboplastin Time 27.9 sec (22.0-30.0); Prothrombin Time 9.9 sec (10.0-12.5)
--- NOTE | 2023-08-30 16:58 | CT ---
EXAMINATION TYPE: CT brain wo con CT DLP: 1154.4 mGycm, Automated exposure control for dose reduction was used. DATE OF EXAM: 08/30/2023 4:43 PM COMPARISON: 06/26/2023. CLINICAL INDICATION:Male, 48 years old with history of syncope vs. Seizure, TECHNIQUE: Brain: Axial CT images of the brain were obtained with coronal and sagittal reformats created and rev iewed. Contrast used: None. Oral contrast used: None. FINDINGS: Brain: Extra-axial spaces: No abnormal extra-axial fluid collections. Ventricular system: Within normal limits Cerebral parenchyma: No acute intraparenchymal hemorrhage or mass effect. The moreno-white junction is well differentiated. Cerebellum: Unremarkable. Mass effect: No evidence of midline shift. Intracranial vasculature: unremarkable Soft tissues: Normal. Calvarium/osseous structures: No depressed skull fracture. Paranasal sinuses and mastoid air cells: Mild scattered paranasal sinus disease. Visualized orbits: Orbital contents are intact. IMPRESSION: No acute intracranial process.
[2023-08-30 17:15] LABS: ALT 16 U/L (4-49); AST 25 U/L (17-59); African American GFR (CKD) >90 (>60 ml/min/1.73 sqM); Albumin 3.8 g/dL (3.5-5.0); Alkaline Phosphatase 93 U/L (38-126); Anion Gap 8 mmol/L; Blood Urea Nitrogen 31 mg/dL (9-20); Calcium 9.1 mg/dL (8.4-10.2); Carbon Dioxide 23 mmol/L (22-30); Chloride 103 mmol/L (98-107); Glucose 347 mg/dL (74-99); Magnesium 1.9 mg/dL (1.6-2.3); Non-African American GFR(CKD) 78 (>60 ml/min/1.73 sqM); Sodium 134 mmol/L (137-145); Total Bilirubin 0.8 mg/dL (0.2-1.3); Total Protein 7.1 g/dL (6.3-8.2)
[2023-08-30 17:24] LABS: Potassium 4.8 mmol/L (3.5-5.1)
[2023-08-30] MEDS ORDERED: ASPIRIN 81 MG PO STA (17:30)
[2023-08-30] MEDS ORDERED: HEPARIN SODIUM 1,000 UN/ML (10ML VL) IV ONE (20:54)
[2023-08-30] MEDS ORDERED: HEPARIN SODIUM 1,000 UN/ML (10ML VL) IV PRN (20:54)
[2023-08-30] MEDS ORDERED: NITROGLYCERIN SL TABS 0.4 MG TAB SUBLINGUAL PRN (21:22)
[2023-08-30] MEDS: HEPARIN SOD,PORK IN 0.45% NACL 25,000 UNIT in 0.45% NACL 1 250ML.BAG IV SCH (21:24)
[2023-08-31] MEDS ORDERED: ATORVASTATIN 80 MG TAB PO STA ×2 (00:41→11:01)
--- NOTE | 2023-08-31 00:43 | P.HPIM ---
History of Present Illness H&P Date: 08/30/23 Patient is a 48-year-old male with a PMH of CAD status post [place], COPD, hypertension, hyperlipidemia, type II DM who presents to the emergency room with complaints of chest discomfort. Patient reports he's been experiencing intermittent substernal chest discomfort and palpitations over the past several days. Notes that it is irritated on maximal intensity, lasting for a few minutes, nonradiating, with no clear alleviating or exacerbating features. Reported some associated shortness of breath without nausea, vomiting, diaphoresis, or dizziness. Of note, the patient has been seen with complaints of chest pain multiple times over the last few months and recently underwent a dobutamine stress echocardiogram on 06/02/23 which was negative. Patient reported being symptom free at the time of interview. Denied experiencing lower extremity swelling or pain. Also denied cough, fever, chills. In the emergency room however, laboratory evaluation revealed a troponin of 0.019 and subsequently 0.036. EKG reveals sinus rhythm at 74 bpm with T-wave flattening in lead 3. Chest x-ray was unremarkable. CT brain was also unremarkable. Laboratory evaluation also revealed sodium 134, BUN 31, cre atinine 1.12, glucose of 347. ED documentation reviewed and case discussed with ED provider. Review of systems: Pertinent positives and negatives as discussed in HPI, a complete review of systems was performed and all other systems are negative. Physical examination: Vital signs reviewed General: non toxic, no distress, appears at stated age, normal weight Derm: no unusual rashes/lesions, warm Head: atraumatic, normocephalic, symmetric Eyes: EOMI, no lid lag, anicteric sclera, pupils equal round reactive to light ENT: Nose and ears atraumatic Neck: No cervical lymphadenopathy, trachea midline, supple Mouth: no lip lesion, mucus membranes moist Cardiovascular: S1S2 reg, no murmur, positive dorsalis pedis pulse bilateral, no edema Lungs: CTA bilateral, no rhonchi, no rales, no accessory muscle use Abdominal: soft, nontender to palpation, no guarding Ext: muscle strength 5 out of 5 in all 4 extremities grossly, no gross muscle atrophy, no contractures, Neuro: CN II-XI grossly intact, no gross focal neuro deficits Psych: Alert, oriented, appropriate affect Assessment: Non-ST elevation [place] Chronic conditions: COPD, hypertension, HLD, type II DM Imaging: EKG reveals sinus rhythm at 74 bpm with T-wave flattening in lead 3. Chest x- ray was unremarkable. CT brain was also unremarkable. Data Review: Laboratory evaluation also revealed sodium 134, BUN 31, creatinine 1.12, glucose of 347. Plan: Continue with heparin infusion Continue aspirin, statin Cardiac monitoring Cardiology consult Trend troponin Insulin sliding scale and blood glucose monitoring (patient was previously on Lantus 50 units daily at bedtime and NovoLog 12 units 3 times a day, although currently not taking any medications) Initiate Levemir 30 U qhs Initiate Norvasc 10 mg po qd DVT prophylaxis: Heparin infusion The patient is admitted with an anticipated less than 2 midnight stay for evaluation of NSTEMI CODE STATUS: Full Code Discussed with: Patient Anticipated discharge place: Home Past Medical History Past Medical History: Coronary Artery Disease (CAD), Diabetes Mellitus Additional Past Medical History / Comment(s): pt type 1 diabetes Last Myocardial Infarction Date:: 2021 History of Any Multi-Drug Resistant Organisms: None Reported Past Surgical History: Orthopedic Surgery Additional Past Surgical History / Comment(s): Knee surgey 1994 Past Anesthesia/Blood Transfusion Reactions: No Reported Reaction Past Psychological History: Schizophrenia Smoking Status: Current every day smoker Past Alcohol Use History: Occasional Past Drug Use History: Marijuana Additional Drug Use History / Comment(s): crack cocaine use for 2 years, 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 - Past Family History Father Family Medical History: Coronary Artery Disease (CAD) Medications and Allergies Home Medications Medication Instructions Recorded Confirmed Type No Known Home Medications 08/30/23 08/30/23 History Allergies Allergy/AdvReac Type Severity Reaction Status Date / Time blue dye AdvReac Rapid Verified 08/30/23 19:08 Heart Rate Physical Exam Vitals: Vital Signs Temp Pulse Pulse Resp BP BP Pulse Ox 08/30/23 22:00 66 13 142/97 98 08/30/23 21:38 98.6 F 68 18 180/102 100 08/30/23 21:30 80 17 142/97 99 08/30/23 20:30 71 21 149/100 100 08/30/23 18:57 84 18 144/67 96 08/30/23 17:42 87 18 159/84 99 08/30/23 16:18 71 18 172/102 98 08/30/23 16:12 71 08/30/23 15:32 97.6 F 82 18 163/94 100 Intake and Output 08/30/23 08/30/23 08/31/23 14:59 22:59 06:59 Other: Weight 104.326 kg Results CBC & Chem 7: 08/30/23 16:15 08/30/23 16:15 Labs: Abnormal Lab Results - Last 24 Hours (Table) 08/30/23 08/30/23 08/30/23 Range/Units 16:15 16:15 20:08 PT 9.9 L (10.0-12.5) sec Sodium 134 L (137-145) mmol/L BUN 31 H (9-20) mg/dL Glucose 347 H (74-99) mg/dL Troponin I 0.036 H* (0.000-0.034) ng/mL 08/30/23 Range/Units 22:33 PT (10.0-12.5) sec Sodium (137-145) mmol/L BUN (9-20) mg/dL Glucose (74-99) mg/dL Troponin I 0.038 H* (0.000-0.034) ng/mL Thrombosis Risk Factor Assmnt - Choose All That Apply Any of the Below Risk Factors Present?: Yes Each Factor Represents 1 point: Age 41-60 years, Obesity (BMI >25) Thrombosis Risk Factor Assessment Total Risk Factor Score: 2 Thrombosis Risk Factor Assessment Level: Low Risk
[2023-08-31] MEDS: INSULIN DETEMIR (LEVEMIR) 100 UNIT/ML SYR SQ SCH ×2 (00:56→21:23)
[2023-08-31 06:05] LABS: Glucose,Whole Blood 200 mg/dL (70-110)
[2023-08-31] MEDS: INSULIN ASPART (NovoLOG) 100 UNIT/ML VIAL SQ SCH ×4 (06:24→21:22)
[2023-08-31] MEDS ORDERED: HEPARIN SODIUM,PORCINE (1 ML) 2,500 UNIT in SODIUM CHLORIDE 0.9% 250 ML IRRIGATION PRN (07:00)
[2023-08-31] MEDS ORDERED: HEPARIN SODIUM,PORCINE 10,000 UNIT in SODIUM CHLORIDE 0.9% 1,000 ML IRRIGATION PRN (07:00)
[2023-08-31] MEDS ORDERED: ASPIRIN 325 MG TAB PO SCH (09:00)
[2023-08-31 10:13] LABS: Chol/HDL Ratio 5.41 Ratio; LDL Cholesterol,Calculated 204.2 mg/dL (0.0-131.0)
[2023-08-31] MEDS ORDERED: ALPRAZolam 0.5 MG TAB PO PRN (11:01)
[2023-08-31] MEDS ORDERED: NITROGLYCERIN SL TABS 0.4 MG TAB SUBLINGUAL PRN (11:01)
[2023-08-31] MEDS ORDERED: ASPIRIN 325 MG TAB PO STA (11:01)
[2023-08-31] MEDS ORDERED: ALPRAZolam 0.25 MG TAB PO PRN (11:01)
--- NOTE | 2023-08-31 11:10 | CONS ---
CONSULTATION HISTORY OF PRESENT ILLNESS: Henok is a 48-year-old gentleman with multiple medical problems including insulin- requiring diabetes and dyslipidemia, who seems to be somewhat noncompliant with therapy, came to hospital complaining of chest pain. He describes it as a precordial chest pain, oevy-yp-hyipumxd intensity, pressure-like sensation, that radiated to his left arm. He was admitted to hospital back in May with similar symptoms, ruled out for myocardial infarction, and underwent a dobutamine stress echo that did not reveal any ischemia, and he had not been followed up in the office since that time. On this admission, the second set of troponin came back elevated at 0.03, and the came back to normal. EKG did not reveal any acute ischemic changes. He had a CT scan of the brain, that was unremarkable. Even though the CT was done for syncope, the patient himself does not describe any syncope. He is describing chest pain. He also has had some palpitations. Given the multiple coronary risk factors, elevated troponin, and the chest pain, I am advising the patient to undergo cardiac catheterization for further evaluation. He had been explained of risks, benefits, and alternatives, understood and accepted. PAST MEDICAL HISTORY: Significant for insulin-requiring diabetes. MEDICATIONS: As charted. FAMILY HISTORY: Negative for premature coronary artery disease. SOCIAL HISTORY: Significant for smoking. There is no history of EtOH abuse or drug abuse. REVIEW OF SYSTEMS: HEENT: Unremarkable. CARDIAC: As described above. RESPIRATORY: Negative. GI: Negative. GENITOURINARY: Negative. ALLERGY/IMMUNOLOGY: Negative. SKIN: Negative. MUSCULOSKELETAL: Negative. ENDOCRINE: Negative. DERM: Negative. CONSTITUTIONAL: Negative. HEMATOLOGICAL: Negative. Rest of the system review is not relevant. PHYSICAL EXAMINATION: GENERAL: Comfortable at rest. VITAL SIGNS: Afebrile. Blood pressure is 170/99, respiratory rate is 18. CHEST: Reveals good air entry bilaterally. HEART: Reveals first and second heart sounds. An S4 is heard. ABDOMEN: Soft. EXTREMITIES: Did not reveal any edema. Peripheral pulses are felt. LABORATORY DATA: Show that the BUN is 31, creatinine is 1.1. Troponins are elevated. Blood sugar is elevated. ASSESSMENT: Acute bmz-YR-yqorwdm elevation myocardial infarction PLAN: I advised the patient to undergo cardiac catheterization for further evaluation. He was explained of risks, benefits, and alternatives including the risk of contrast- induced nephropathy. His BUN is elevated. I will hydrate him prior to the procedure. MMODL / IJN: [id number] /
[2023-08-31] MEDS: ATORVASTATIN 80 MG TAB PO SCH (11:16)
--- NOTE | 2023-08-31 11:23 | P.PN ---
Subjective Progress Note Date: 08/31/23 Hospital Course: 48-year-old male with a PMH of CAD status post [place], COPD, hypertension, hyperlipidemia, type II DM who presents to the emergency room with complaints of chest discomfort. Patient does not take any medications at home. In the emergency room however, laboratory evaluation revealed a troponin of 0.019 and subsequently 0.036. EKG reveals sinus rhythm at 74 bpm with T-wave flattening in lead 3. Chest x-ray was unremarkable. CT brain was also unremarkable. Laboratory evaluation also revealed sodium 134, BUN 31, creatinine 1.12, glucose of 347. Admitted for non-ST elevation [place]. Currently on heparin drip. Cardiology consulted. Subjective: Patient seen and examined at bedside. No acute events overnight. Denies any further chest pain. Pertinent positives and negatives as discussed above, a complete review of systems was performed and all other systems are negative. Vitals Signs Reviewed. General: nontoxic, no distress, appears at stated age, obese Derm: warm, dry Head: atraumatic, normocephalic, symmetric Eyes: EOMI, no lid lag, anicteric sclera Mouth: no lip lesion, mucus membranes moist Cardiovascular: S1S2 reg, no murmur Lungs: CTA bilateral, no rhonchi, no rales , no accessory muscle use Abdominal: soft, nontender to palpation, no guarding, no appreciable organomegaly Ext: no gross muscle atrophy, no edema, no contractures Neuro: CN II-XI grossly intact, no focal neuro deficits Psych: Alert, oriented, appropriate affect Data Reviewed Today: Pertinent Labs: APTT 41, troponin peaked at 0.038, total cholesterol 290, LDL 204, glucose 200 Imaging: No new imaging Assessment and Plan: Non-ST elevation [place] Nicotine dependence Hypertension Type 2 diabetes Dyslipidemia COPD? -Continue heparin drip, monitor APTT, and monitor bleeding, daily CBC -Aspirin 81 mg, atorvastatin 80 mg -Cardiology note reviewed, cardiac cath tomorrow -telemetry -Counseled regarding smoking cessation -Started on Levemir 30 units, sliding scale insulin, monitor for hypoglycemia -A1c pending -Started antihypertensives after cardiac cath -Echocardiogram ordered DVT ppx: Heparin drip Code status: Full code Anticipated discharge place: Pending clinical course Anticipated discharge time: Pending clinical course Objective - Vital Signs Vital signs: Vital Signs Temp 98.0 F 08/31/23 11:08 Pulse 80 08/31/23 11:08 Resp 18 08/31/23 11:08 BP 153/80 08/31/23 11:08 Pulse Ox 98 08/31/23 11:08 FiO2 Intake & Output 08/30/23 08/31/23 08/31/23 18:59 06:59 18:59 Intake Total 91.833 54.114 Balance 91.833 54.114 Weight 104.326 kg 104.326 kg Intake: IV 10 Invasive Line 1 10 Intake, IV Titration 91.833 44.114 Amount Heparin Sod,Pork in 0.45% 91.833 44.114 NaCl 25,000 unit In 0.45 % NaCl 1 250ml.bag @ 9. 585 UNITS/KG/HR 10 mls/hr IV .Q24H [facility] Rx#: [id number] Other: Voiding Method Toilet - Labs CBC & Chem 7: 08/30/23 16:15 08/30/23 16:15 Labs: Abnormal Lab Results - Last 24 Hours (Table) 08/30/23 08/30/23 08/30/23 Range/Units 16:15 16:15 20:08 PT 9.9 L (10.0-12.5) sec APTT (22.0-30.0) sec Sodium 134 L (137-145) mmol/L BUN 31 H (9-20) mg/dL Glucose 347 H (74-99) mg/dL POC Glucose (mg/dL) (70-110) mg/dL Troponin I 0.036 H* (0.000-0.034) ng/mL Triglycerides (0.00-149.00) mg/dL Cholesterol (0.00-200.00) mg/dL LDL Cholesterol, Calc (0.0-131.0) mg/dL 08/30/23 08/31/23 08/31/23 Range/Units 22:33 05:03 05:03 PT (10.0-12.5) sec APTT 41.3 H (22.0-30.0) sec Sodium (137-145) mmol/L BUN (9-20) mg/dL Glucose (74-99) mg/dL POC Glucose (mg/dL) (70-110) mg/dL Troponin I 0.038 H* (0.000-0.034) ng/mL Triglycerides 161.00 H (0.00-149.00) mg/dL Cholesterol 290.00 H (0.00-200.00) mg/dL LDL Cholesterol, Calc 204.2 H (0.0-131.0) mg/dL 08/31/23 Range/Units 06:04 PT (10.0-12.5) sec APTT (22.0-30.0) sec Sodium (137-145) mmol/L BUN (9-20) mg/dL Glucose (74-99) mg/dL POC Glucose (mg/dL) 200 H (70-110) mg/dL Troponin I (0.000-0.034) ng/mL Triglycerides (0.00-149.00) mg/dL Cholesterol (0.00-200.00) mg/dL LDL Cholesterol, Calc (0.0-131.0) mg/dL
[2023-08-31 11:31] LABS: Glucose,Whole Blood 92 mg/dL (70-110)
[2023-08-31] MEDS ORDERED: VERAPAMIL 2.5 MG/ML 2 ML AMP ONE (11:56)
[2023-08-31] MEDS ORDERED: IV FLUID CONTINUATION 1,000 ML IV ONE (12:00)
[2023-08-31] MEDS ORDERED: HEPARIN SODIUM 1,000 UN/ML (10ML VL) ONE (12:11)
[2023-08-31] MEDS ORDERED: fentaNYL (PF) 50 MCG/ML 2 ML AMP ONE (12:11)
[2023-08-31] MEDS ORDERED: MIDAZOLAM 2 MG/2 ML VIAL IVP ONE (12:17)
[2023-08-31] MEDS ORDERED: fentaNYL (PF) 50 MCG/ML 2 ML AMP IVP ONE (12:17)
[2023-08-31] MEDS ORDERED: LIDOCAINE 1% INJ 10MG/ML (20 ML MDV) SQ ONE (12:18)
[2023-08-31] MEDS ORDERED: VERAPAMIL SYRINGE (5 MG/10 ML) INTRAARTER ONE (12:21)
[2023-08-31] MEDS ORDERED: HEPARIN SODIUM 1,000 UN/ML (10ML VL) IV ONE (12:23)
[2023-08-31] MEDS ORDERED: IOPAMIDOL-370 200ML BTL INJ ONE (12:45)
--- NOTE | 2023-08-31 13:55 | CC ---
CARDIAC CATHETERIZATION REPORT INDICATION: Acute qqz-JX-noigtsl elevation IN. PROCEDURE NOTE: After obtaining informed consent, left heart catheterization and coronary angiogram were performed via the right radial artery using standard Megha catheters. The patient tolerated the procedure well without any obvious immediate complications. The patient received verapamil and heparin per protocol. Total sedation time was 14 minutes. Right radial artery access was obtained using Seldinger technique, 6-Serbian sheath was placed. Catheters and wires were floated into the ascending aorta under fluoroscopic guidance. FINDINGS: 1. Hemodynamics: Left ventricular end-diastolic pressure is 12 mm. There is no significant gradient across the aortic valve. 2. Left ventriculogram: The left ventriculogram is not performed. 3. Angiographic data: Right coronary artery: The right coronary artery is a large dominant vessel. There is a focal area of stenosis involving the PDA, which seems to be around 60% to 70% stenosed. Left main coronary artery is a normal-sized vessel and is free of stenosis, divides into left anterior descending coronary artery and circumflex coronary artery, LAD and its branches. Circumflex coronary artery and its branches are free of significant stenosis. Mid LAD shows myocardial bridging. CONCLUSIONS: One-vessel coronary artery disease as described above with myocardial bridging involving LAD. PLAN: I reviewed angiographic data with Dr. Amador, the on-call clinical science consultant. Given the relatively small caliber of the PDA, we had decided on medical therapy at this time. We will treat him with aspirin, statin, nitrates, beta blockers, and see how his symptoms evolve. MMODL / IJN: [id number] /
[2023-08-31 16:32] LABS: Glucose,Whole Blood 249 mg/dL (70-110)
[2023-08-31] MEDS ORDERED: MAGNESIUM HYDROXIDE 2,400 MG/30 ML CUP PO PRN (17:09)
[2023-08-31 20:42] LABS: Glucose,Whole Blood 183 mg/dL (70-110)
[2023-08-31] MEDS: HEPARIN SOD,PORK IN 0.45% NACL 25,000 UNIT in 0.45% NACL 1 250ML.BAG IV SCH (21:19)
[2023-09-01 06:20] LABS: Glucose,Whole Blood 178 mg/dL (70-110)
[2023-09-01] MEDS: INSULIN ASPART (NovoLOG) 100 UNIT/ML VIAL SQ SCH ×4 (06:45→21:28)
[2023-09-01] MEDS: ASPIRIN 81 MG PO SCH (08:14)
[2023-09-01 08:20] LABS: Basophils % (A) 1 %; Eosinophils # (A) 0.1 k/uL (0-0.7); Eosinophils % (A) 2 %; HCT 49.1 % (39.0-53.0); HGB 16.3 gm/dL (13.0-17.5); Lymphocytes # (A) 2.1 k/uL (1.0-4.8); Lymphocytes % (A) 41 %; MCH 29.8 pg (25.0-35.0); MCHC 33.2 g/dL (31.0-37.0); MCV 89.7 fL (80.0-100.0); Mean Platelet Volume 8.7; Monocytes # (A) 0.3 k/uL (0-1.0); Monocytes % (A) 6 %; Neutrophils # (A) 2.6 k/uL (1.3-7.7); Neutrophils % (A) 49 %; Platelet Count 237 k/uL (150-450); RBC 5.48 m/uL (4.30-5.90); WBC 5.2 k/uL (3.8-10.6)
[2023-09-01] MEDS: LOSARTAN 25 MG TAB PO SCH (08:20)
[2023-09-01] MEDS: carvediloL 3.125 MG TAB PO SCH ×2 (08:20→17:00)
[2023-09-01 08:34] LABS: African American GFR (CKD) >90 (>60 ml/min/1.73 sqM); Anion Gap 5 mmol/L; Blood Urea Nitrogen 20 mg/dL (9-20); Calcium 9.2 mg/dL (8.4-10.2); Carbon Dioxide 28 mmol/L (22-30); Chloride 104 mmol/L (98-107); Glucose 158 mg/dL (74-99); Magnesium 2.2 mg/dL (1.6-2.3); Non-African American GFR(CKD) >90 (>60 ml/min/1.73 sqM); Potassium 3.9 mmol/L (3.5-5.1); Sodium 137 mmol/L (137-145)
[2023-09-01] MEDS ORDERED: LOSARTAN 50 MG TAB PO SCH (09:00)
[2023-09-01 10:39] VITALS: BMI 34.0
--- NOTE | 2023-09-01 11:09 | P.PN ---
Subjective HISTORY OF PRESENT ILLNESS: Patient is status post cardiac catheterization with Dr. Bangura revealing one- vessel coronary artery disease with myocardial bridging involving the LAD with 60-70% stenosis of PDA. Given the relatively small caliber of the PDA, medical management was recommended. Patient examined this might the bedside. Patient denies any chest pain or pressure. He denies any shortness of breath. Blood pressure has been elevated with a systolic up into the 160s. PHYSICAL EXAM: VITAL SIGNS: Reviewed. GENERAL: Well-developed in no acute distress. NECK: Supple. No JVD or thyromegaly LUNGS: Respirations even and unlabored. Lungs essentially clear to auscultation bilaterally. HEART: Regular rate and rhythm. S1 and S2 heard. EXTREMITIES: Normal range of motion. No clubbing or cyanosis. Peripheral pulses intact. No lower extremity edema ASSESSMENT: Non-STEMI, status post cardiac catheterization one-vessel coronary artery disease with myocardial bridging involving the LAD with 60-70% stenosis of PDA Hypertension Diabetes, uncontrolled Nicotine dependence PLAN: 2-D echo has been ordered. Await results Continue current cardiac medications Add carvedilol 3.125 mg twice a day Add losartan 25 mg daily for optimal blood pressure control Continue to monitor blood pressure Patient is stable for discharge home this afternoon from a cardiac standpoint Nurse practitioner note has been reviewed by physician. Signing provider agrees with the documented findings, assessment, and plan of care. Objective - Vital Signs Vital signs: Vital Signs Temp 98.1 F 09/01/23 04:00 Pulse 70 09/01/23 08:00 Resp 16 09/01/23 08:00 BP 138/81 09/01/23 08:00 Pulse Ox 99 09/01/23 08:00 FiO2 Intake & Output 08/31/23 09/01/23 09/01/23 18:59 06:59 18:59 Intake Total 1514.114 Balance 1514.114 Weight 104.326 kg Intake: IV 1110 .9 @ 100 1000 Invasive Line 1 10 Intake, IV Titration 44.114 Amount Heparin Sod,Pork in 0.45% 44.114 NaCl 25,000 unit In 0.45 % NaCl 1 250ml.bag @ 9. 585 UNITS/KG/HR 10 mls/hr IV .Q24H [facility] Rx#: [id number] Oral 360 Other: Voiding Method Toilet Toilet Toilet # Voids 3 1 - Labs CBC & Chem 7: 09/01/23 07:41 09/01/23 07:41 Labs: Abnormal Lab Results - Last 24 Hours (Table) 08/31/23 08/31/23 08/31/23 Range/Units 13:10 16:31 20:40 Glucose (74-99) mg/dL POC Glucose (mg/dL) 249 H 183 H (70-110) mg/dL Hemoglobin A1c 12.3 H (<=6.0) % 09/01/23 09/01/23 Range/Units 06:18 07:41 Glucose 158 H (74-99) mg/dL POC Glucose (mg/dL) 178 H (70-110) mg/dL Hemoglobin A1c (<=6.0) %
[2023-09-01 11:21] LABS: Glucose,Whole Blood 214 mg/dL (70-110)
--- NOTE | 2023-09-01 15:14 | P.PN ---
Subjective Progress Note Date: 09/01/23 Hospital Course: 48-year-old male with a PMH of CAD status post [place], COPD, hypertension, hyperlipidemia, type II DM who presents to the emergency room with complaints of chest discomfort. Patient does not take any medications at home. In the emergency room however, laboratory evaluation revealed a troponin of 0.019 and subsequently 0.036. EKG reveals sinus rhythm at 74 bpm with T-wave flattening in lead 3. Chest x-ray was unremarkable. CT brain was also unremarkable. Laboratory evaluation also revealed sodium 134, BUN 31, creatinine 1.12, glucose of 347. Admitted for non-ST elevation ND. Currently on heparin drip. Cardiology consulted. Cardiac cath shows focal area of stenosis involving the PDA to be around 60-70%. On medical management. Pending echocardiogram. Subjective: Patient seen and examined at bedside. No acute events overnight. Denies any further chest pain. Pertinent positives and negatives as discussed above, a complete review of systems was performed and all other systems are negative. Vitals Signs Reviewed. General: nontoxic, no distress, appears at stated age, obese Derm: warm, dry Head: atraumatic, normocephalic, symmetric Eyes: EOMI, no lid lag, anicteric sclera Mouth: no lip lesion, mucus membranes moist Cardiovascular: S1S2 reg, no murmur Lungs: CTA bilateral, no rhonchi, no rales , no accessory muscle use Abdominal: soft, nontender to palpation, no guarding, no appreciable organomegaly Ext: no gross muscle atrophy, no edema, no contractures Neuro: CN II-XI grossly intact, no focal neuro deficits Psych: Alert, oriented, appropriate affect Data Reviewed Today: Pertinent Labs: A1c 12.3, hemoglobin 16.3, potassium 2.9, creatinine 0.97, blood sugars range between 158-249 Imaging: No new imaging Assessment and Plan: Non-ST elevation [place] Nicotine dependence Hypertension Type 2 diabetes Dyslipidemia COPD? -Aspirin 81 mg, atorvastatin 80 mg -Cardiology note reviewed, pending echocardiogram and likely discharge -telemetry -Counseled regarding smoking cessation -on Levemir 30 units, sliding scale insulin, monitor for hypoglycemia -Also started on losartan 25 mg daily as well as carvedilol 3.125 twice a day DVT ppx: Heparin drip Code status: Full code Anticipated discharge place: Pending clinical course Anticipated discharge time: Pending clinical course Objective - Vital Signs Vital signs: Vital Signs Temp 98.1 F 09/01/23 04:00 Pulse 67 09/01/23 12:00 Resp 16 09/01/23 12:00 BP 151/96 09/01/23 12:00 Pulse Ox 96 09/01/23 12:00 FiO2 Intake & Output 08/31/23 09/01/23 09/01/23 18:59 06:59 18:59 Intake Total 1514.114 358 Balance 1514.114 358 Weight 104.326 kg Intake: IV 1110 .9 @ 100 1000 Invasive Line 1 10 Intake, IV Titration 44.114 Amount Heparin Sod,Pork in 0.45% 44.114 NaCl 25,000 unit In 0.45 % NaCl 1 250ml.bag @ 9. 585 UNITS/KG/HR 10 mls/hr IV .Q24H [facility] Rx#: [id number] Oral 360 358 Other: Voiding Method Toilet Toilet Toilet # Voids 3 1 1 - Labs CBC & Chem 7: 09/01/23 07:41 09/01/23 07:41 Labs: Abnormal Lab Results - Last 24 Hours (Table) 08/31/23 08/31/23 08/31/23 Range/Units 13:10 16:31 20:40 Glucose (74-99) mg/dL POC Glucose (mg/dL) 249 H 183 H (70-110) mg/dL Hemoglobin A1c 12.3 H (<=6.0) % 09/01/23 09/01/23 09/01/23 Range/Units 06:18 07:41 11:20 Glucose 158 H (74-99) mg/dL POC Glucose (mg/dL) 178 H 214 H (70-110) mg/dL Hemoglobin A1c (<=6.0) %
[2023-09-01 16:09] LABS: Glucose,Whole Blood 246 mg/dL (70-110)
[2023-09-01] MEDS: INSULIN DETEMIR (LEVEMIR) 100 UNIT/ML SYR SQ SCH (20:34)
[2023-09-01] MEDS: ATORVASTATIN 80 MG TAB PO SCH (20:34)
[2023-09-01 20:54] LABS: Glucose,Whole Blood 304 mg/dL (70-110)
[2023-09-02 04:37] LABS: Glucose,Whole Blood 207 mg/dL (70-110)
[2023-09-02] MEDS: carvediloL 3.125 MG TAB PO SCH (06:38)
[2023-09-02] MEDS: INSULIN ASPART (NovoLOG) 100 UNIT/ML VIAL SQ SCH ×2 (06:38→12:11)
--- NOTE | 2023-09-02 07:20 | CA ---
Transthoracic Echo Report Name: Henok Muñiz Age: 48 Gender: M : 1975 Exam Date: 09/01/2023 10:43 Exam Location: [place] [facility] Ht (in): 69 Wt (lb): 230 Ordering Physician: Tomy Anaya MD Attending/Referring Phys: Manager Food Vani Barba RDCS Procedure CPT: Indications: Non-ST elevation CT Cardiac Hx: Technical Quality: Good Contrast 1: Total Dose (mL): Contrast 2: Total Dose (mL): MEASUREMENTS (Male / Female) Normal Values 2D ECHO LV Diastolic Diameter PLAX 4.8 cm 4.2 - 5.9 / 3.9 - 5.3 cm LV Systolic Diameter PLAX 3.4 cm IVS Diastolic Thickness 1.5 cm 0.6 - 1.0 / 0.6 - 0.9 cm LVPW Diastolic Thickness 1.4 cm 0.6 - 1.0 / 0.6 - 0.9 cm LV Relative Wall Thickness 0.6 RV Internal Dim ED PLAX 2.9 cm LA Systolic Diameter LX 4.3 cm 3.0 - 4.0 / 2.7 - 3.8 cm LV Diastolic Volume MOD 4C 121.6 cm??? LV Systolic Volume MOD 4C 53.8 cm??? LV Ejection Fraction MOD 4C 55.8 % LV Cardiac Index MOD 4C 1896.9 cm???/min???m??? LV Diastolic Length 4C 7.9 cm LV Systolic Length 4C 6.9 cm LV Diastolic Volume MOD 2C 96.6 cm??? LV Systolic Volume MOD 2C 51.3 cm??? LV Ejection Fraction MOD 2C 46.9 % LV Cardiac Index MOD 2C 1266.5 cm???/min???m??? LV Diastolic Length 2C 7.7 cm LV Systolic Length 2C 6.4 cm LA Volume 58.6 cm??? 18 - 58 / 22 - 52 cm??? LA Volume Index 25.6 cm???/m??? 16 - 28 cm???/m??? M-MODE Aortic Root Diameter MM 3.2 cm MV E Point Septal Separation 0.5 cm AV Cusp Separation MM 2.2 cm DOPPLER AV Peak Velocity 130.1 cm/s AV Peak Gradient 6.8 mmHg MV Area PHT 1.7 cm??? Mitral E Point Velocity 35.1 cm/s Mitral A Point Velocity 45.4 cm/s Mitral E to A Ratio 0.8 MV Deceleration Time 451.1 ms MV E' Velocity 4.4 cm/s Mitral E to MV E' Ratio 8.1 FINDINGS Left Ventricle Left ventricular ejection fraction is estimated at 55 %. Left ventricular cavity size normal. Moderate concentric left ventricular hypertrophy. Right Ventricle Normal right ventricular size. Unable to estimate the right ventricular systolic pressure. Right Atrium Normal right atrial size. Left Atrium Normal left atrial size. Mitral Valve Structurally normal mitral valve. Trace mitral regurgitation. Aortic Valve Trileaflet aortic valve. Tricuspid Valve Structurally normal tricuspid valve. No tricuspid stenosis, regurgitation or prolapse. Pulmonic Valve Structurally normal pulmonic valve. No pulmonic regurgitation. Pericardium No pericardial effusion. Aorta Normal size aortic root and proximal ascending aorta. CONCLUSIONS Normal LV size and preserved systolic function with moderate concentric LVH. Mild mitral and tricuspid regurgitation no pericardial effusion and right-sided pressures are not well quantified. Previewed by: Dr. Lnia Charles MD (Electronically Signed) Final Date: 02 September 2023 07:19
[2023-09-02] MEDS: LOSARTAN 25 MG TAB PO SCH (07:51)
[2023-09-02] MEDS: ASPIRIN 81 MG PO SCH (07:51)
[2023-09-02 08:00] VITALS: BP 163/95; PULSE 65; RESP 16; TEMP 97.3
--- NOTE | 2023-09-02 10:40 | P.DS ---
Providers Date of admission: 08/30/23 21:22 Expected date of discharge: 09/02/23 Attending physician: Kayli Goetz MD Consults: 08/30/23 21:22 Consult Physician Urgent Consulting Provider: Junior Sanchez Consult Reason/Comments: nstemi Do you want consulting provider notified?: Yes Primary care physician: Stated None Hospital Course: Discharge Diagnosis: Non-ST elevation NV CAD Nicotine dependence Hypertension Type 2 diabetes Dyslipidemia COPD Hospital Course: 48-year-old male with a PMH of CAD status post NV, COPD, hypertension, hyperlipidemia, type II DM who presents to the emergency room with complaints of chest discomfort. Patient does not take any medications at home. In the emergency room however, laboratory evaluation revealed a troponin of 0.019 and subsequently 0.036. EKG reveals sinus rhythm at 74 bpm with T-wave flattening in lead 3. Chest x-ray was unremarkable. CT brain was also unremarkable. Laboratory evaluation also revealed sodium 134, BUN 31, creatinine 1.12, glucose of 347. Admitted for non-ST elevation NV. Currently on heparin drip. Cardiology consulted. Cardiac cath shows focal area of stenosis involving the PDA to be around 60-70%. On medical management. Echocardiogram shows LVEF 55% with moderate concentric left ventricular hypertrophy, mild mitral and tricuspid regurgitation. Follow-up with cardiology. Patient seen and examined at bedside. Vital signs reviewed and stable. General: nontoxic, no distress, appears at stated age, obese Derm: warm, dry Head: atraumatic, normocephalic, symmetric Eyes: EOMI, no lid lag, anicteric sclera Mouth: no lip lesion, mucus membranes moist Cardiovascular: S1S2 reg, no murmur Lungs: CTA bilateral, no rhonchi, no rales , no accessory muscle use Abdominal: soft, nontender to palpation, no guarding, no appreciable organomegaly Ext: no gross muscle atrophy, no edema, no contractures Neuro: CN II-XI grossly intact, no focal neuro deficits Psych: Alert, oriented, appropriate affect A total of 33 minutes of time were spent preparing this complex discharge summary. Patient was discharged on 09/02/23 at 944 . Patient Condition at Discharge: Stable Plan - Discharge Summary New Discharge Prescriptions: New carvediloL [Coreg] 3.125 mg PO BID-W/MEALS #90 tab Losartan [Cozaar] 25 mg PO DAILY #60 tab sitaGLIPtin PHOSPHATE [Januvia] 25 mg PO DAILY #60 tab Atorvastatin [Lipitor] 80 mg PO HS #60 tab Aspirin 81 mg PO DAILY #60 tab metFORMIN HCL ER [Glucophage XR] 500 mg PO DAILY #60 tab Insulin Detemir (Levemir) [Levemir] 30 unit SQ HS #7 each Discharge Medication List Aspirin 81 mg PO DAILY #60 tab 09/02/23 [Rx] Atorvastatin [Lipitor] 80 mg PO HS #60 tab 09/02/23 [Rx] Insulin Detemir (Levemir) [Levemir] 30 unit SQ HS #7 each 09/02/23 [Rx] Losartan [Cozaar] 25 mg PO DAILY #60 tab 09/02/23 [Rx] carvediloL [Coreg] 3.125 mg PO BID-W/MEALS #90 tab 09/02/23 [Rx] metFORMIN HCL ER [Glucophage XR] 500 mg PO DAILY #60 tab 09/02/23 [Rx] sitaGLIPtin PHOSPHATE [Januvia] 25 mg PO DAILY #60 tab 09/02/23 [Rx] Follow up Appointment(s)/Referral(s): None,Stated [Primary Care Provider] - 1-2 days Juice Bangura MD [STAFF PHYSICIAN] - 1 Week Patient Instructions/Handouts: Coronary Artery Disease (DC), Mediterranean Diet (DC), Hypertension and Diabetes (DC), Diabetes and Nutrition (DC), Diabetes and Exercise (DC), Type 2 Diabetes Management for Adults (DC) Activity/Diet/Wound Care/Special Instructions: Please see your Sales Enablement Consultant and PCP. Discharge Disposition: HOME SELF-CARE
[2023-09-02 11:16] LABS: Glucose,Whole Blood 145 mg/dL (70-110)
== END 2023-09-02 12:53 | disposition home or self-care (01) | DRG 190 ==
LOC: EC 15:30 → 3SCARD 21:22
PROVIDERS: ADMIT Internal Medicine; ATTEND Internal Medicine
PROC: B2111ZZ Fluoroscopy of Multiple Coronary Arteries using Low Osmolar Contrast (ICD-10-PCS; 2023-08-31)
PROC: 4A023N7 Measurement of Cardiac Sampling and Pressure, Left Heart, Percutaneous Approach (ICD-10-PCS; principal; 2023-08-31 11:40)
DX: I21.4 Non-ST elevation (NSTEMI) myocardial infarction (principal); Q24.5 Malformation of coronary vessels; E11.65 Type 2 diabetes mellitus with hyperglycemia; I11.9 Hypertensive heart disease without heart failure; J44.9 Chronic obstructive pulmonary disease, unspecified; I08.1 Rheumatic disorders of both mitral and tricuspid valves; E78.5 Hyperlipidemia, unspecified; F17.210 Nicotine dependence, cigarettes, uncomplicated; I25.10 Atherosclerotic heart disease of native coronary artery without angina pectoris; T38.3X6A Underdosing of insulin and oral hypoglycemic [antidiabetic] drugs, initial encounter; F14.91 Cocaine use, unspecified, in remission; Z91.128 Patient's intentional underdosing of medication regimen for other reason; Z79.4 Long term (current) use of insulin; I25.2 Old myocardial infarction; Z91.048 Other nonmedicinal substance allergy status; Z91.199 Patient's noncompliance with other medical treatment and regimen due to unspecified reason
CPT/HCPCS: 36415; 70450; 71046; 80048; 80053; 80061; 83036; 83735; 84484; 85025; 85610; 85730; 93005; 93306; 93458; 96365; 99291

== ENCOUNTER 2023-09-06 18:43 | Emergency (ER) | payer OTHER ==
[2023-09-06 18:53] VITALS: RESP 18; TEMP 97.5
[2023-09-06 19:17] LABS: Glucose,Whole Blood 132 mg/dL (70-110)
[2023-09-06 19:24] LABS: Basophils % (A) 0 %; Eosinophils # (A) 0.1 k/uL (0-0.7); Eosinophils % (A) 1 %; HCT 48.2 % (39.0-53.0); Lymphocytes # (A) 1.9 k/uL (1.0-4.8); Lymphocytes % (A) 36 %; MCHC 33.2 g/dL (31.0-37.0); MCV 90.3 fL (80.0-100.0); Mean Platelet Volume 8.9; Monocytes # (A) 0.2 k/uL (0-1.0); Monocytes % (A) 4 %; Neutrophils # (A) 3.1 k/uL (1.3-7.7); Neutrophils % (A) 58 %; Platelet Count 255 k/uL (150-450); RBC 5.34 m/uL (4.30-5.90); WBC 5.4 k/uL (3.8-10.6)
[2023-09-06 19:36] LABS: African American GFR (CKD) >90 (>60 ml/min/1.73 sqM); Anion Gap 9 mmol/L; Blood Urea Nitrogen 23 mg/dL (9-20); Calcium 9.5 mg/dL (8.4-10.2); Carbon Dioxide 20 mmol/L (22-30); Chloride 107 mmol/L (98-107); Glucose 116 mg/dL (74-99); Magnesium 1.9 mg/dL (1.6-2.3); Non-African American GFR(CKD) 87 (>60 ml/min/1.73 sqM); Potassium 4.8 mmol/L (3.5-5.1); Sodium 136 mmol/L (137-145)
--- NOTE | 2023-09-06 21:10 | CT ---
EXAMINATION TYPE: CT brain wo con CT DLP: 1136.7 mGycm, Automated exposure control for dose reduction was used. DATE OF EXAM: 09/06/2023 7:31 PM COMPARISON: . CLINICAL INDICATION:Male, 48 years old with history of hand parasthesias, history of tbi, weakness, a ms TECHNIQUE: Brain: Axial CT images of the brain were obtained with coronal and sagittal reformats created and rev iewed. Contrast used: None. Oral contrast used: None. FINDINGS: Brain: Extra-axial spaces: No abnormal extra-axial fluid collections. Ventricular system: Within normal limits Cerebral parenchyma: No acute intraparenchymal hemorrhage or mass effect. The moreno-white matter int erface appears maintained. No significant atrophy. . Cerebellum: No acute abnormality. Mass effect: No evidence of midline shift. Intracranial vasculature: A few calcifications of the larger arteries near the skull base. Soft tissues: Normal. Calvarium/osseous structures: No depressed skull fracture. Paranasal sinuses and mastoid air cells: Clear Visualized orbits: Orbital contents appear grossly intact. MRI is more sensitive for detecting acute processes such as infarct, and may be considered if clinica lly warranted. IMPRESSION: No acute intracranial CT abnormality.
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
[2023-09-06 21:29] VITALS: BP 135/92; PULSE 92
== END 2023-09-06 21:25 | disposition home or self-care (01) ==
LOC: EC 18:43
DX: R20.2 Paresthesia of skin (principal); E10.9 Type 1 diabetes mellitus without complications; I25.2 Old myocardial infarction; I25.10 Atherosclerotic heart disease of native coronary artery without angina pectoris; F17.200 Nicotine dependence, unspecified, uncomplicated; F12.90 Cannabis use, unspecified, uncomplicated; Z91.041 Radiographic dye allergy status; Z20.822 Contact with and (suspected) exposure to COVID-19
CPT/HCPCS: 36415; 70450; 80048; 83735; 85025; 87636; 93005; 96361; 96374; 96375; 99284; 99285

== ENCOUNTER 2023-09-15 08:19 | Observation (INO) | payer OTHER ==
--- NOTE | 2023-09-15 08:50 | ED ---
Chest Pain HPI - General Source: patient, RN notes reviewed Mode of arrival: ambulatory Limitations: no limitations <Han Clark - Last Filed: 09/15/23 08:49> - General Source: patient, RN notes reviewed Limitations: no limitations <Eleazar Hernandez - Last Filed: 09/15/23 12:05> - General Chief Complaint: Chest Pain Stated Complaint: chest pain, sob, tightening Time Seen by Provider: 09/15/23 08:49 - History of Present Illness Initial Comments: 48-year-old male presents emergency Department chief complaint chest pain. Patient states that he's had pain like this in the past. 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 Patient states he has intermittent shortness of breath. Denies any other associated symptoms. (Han Clark) Patient is a pleasant 48-year-old male presenting to emergency Department with chest pain. Discomfort was a severe ache. Discomfort is gone at this time however he has had some small amounts. Patient does have history of previous cardiac problems. Patient has had several previous heart attacks. Patient did have some mild associated dyspnea and nausea. No diaphoresis. No leg pain or leg swelling. No radiation to the back. (Eleazar Hernandez) - Related Data Previous Rx's Medication Instructions Recorded Aspirin 81 mg PO DAILY #60 tab 09/02/23 Atorvastatin [Lipitor] 80 mg PO HS #60 tab 09/02/23 Insulin Detemir (Levemir) [Levemir] 30 unit SQ HS #7 each 09/02/23 Losartan [Cozaar] 25 mg PO DAILY #60 tab 09/02/23 carvediloL [Coreg] 3.125 mg PO BID-W/MEALS #90 tab 09/02/23 metFORMIN HCL ER [Glucophage XR] 500 mg PO DAILY #60 tab 09/02/23 sitaGLIPtin PHOSPHATE [Januvia] 25 mg PO DAILY #60 tab 09/02/23 Allergies Allergy/AdvReac Type Severity Reaction Status Date / Time blue dye AdvReac Rapid Verified 09/15/23 08:28 Heart Rate Review of Systems ROS Other: All systems not noted in ROS Statement are negative. <Han Clark - Last Filed: 09/15/23 08:49> ROS Other: All systems not noted in ROS Statement are negative. Constitutional: Denies: fever Eyes: Denies: eye pain ENT: Denies: ear pain Respiratory: Reports: as per HPI Cardiovascular: Reports: as per HPI, chest pain Musculoskeletal: Denies: back pain <DavidEleazar - Last Filed: 09/15/23 12:05> ROS Statement: Those systems with pertinent positive or pertinent negative responses have been documented in the HPI. EKG Findings - EKG Results: EKG: interpreted by ERMD, sinus rhythm, normal axis, normal QRS, normal ST/T <HernandezEleazar - Last Filed: 09/15/23 12:05> Past Medical History Past Medical History: Coronary Artery Disease (CAD), Diabetes Mellitus Additional Past Medical History / Comment(s): pt type 1 diabetes Last Myocardial Infarction Date:: 2021 History of Any Multi-Drug Resistant Organisms: None Reported Past Surgical History: Orthopedic Surgery Additional Past Surgical History / Comment(s): Knee surgey 1993 Past Anesthesia/Blood Transfusion Reactions: No Reported Reaction Past Psychological History: Schizophrenia Smoking Status: Current every day smoker Past Alcohol Use History: Occasional Past Drug Use History: Marijuana - Past Family History Father Family Medical History: Coronary Artery Disease (CAD) <Han Clark Eleanor - Last Filed: 09/15/23 08:49> General Exam Limitations: no limitations <Han Clark Eleanor - Last Filed: 09/15/23 08:49> Limitations: no limitations General appearance: alert, in no apparent distress Head exam: Present: normocephalic Eye exam: Present: normal appearance Neck exam: Present: normal inspection Respiratory exam: Present: normal lung sounds bilaterally. Absent: chest wall tenderness Cardiovascular Exam: Present: regular rate, normal rhythm Expanded Peripheral pulses: 2+: Radial (R), Radial (L), Posterior Tibialis (R), Posterior Tibialis (L) GI/Abdominal exam: Present: soft. Absent: tenderness Extremities exam: Present: normal inspection. Absent: pedal edema, calf tenderness Neurological exam: Present: alert Psychiatric exam: Present: normal affect, normal mood Skin exam: Present: normal color <HernandezEleazar - Last Filed: 09/15/23 12:05> - General Exam Comments Initial Comments: Visual Physical Exam Vital signs reviewed General: Well-appearing, nontoxic, no acute distress. Head: Normocephalic, atraumatic Eyes: PERRLA, EOMI ENT: Airway patent Chest: Nonlabored breathing Skin: No visual rash, normal skin tone Neuro: Alert and oriented 3 Musculoskeletal: No gross abnormalities (Han Clark) Course Vital Signs 09/15/23 08:26 Temperature 98 F Pulse Rate 77 Respiratory 18 Rate Blood Pressure 164/110 O2 Sat by Pulse 98 Oximetry Chest Pain MDM <Han Clark - Last Filed: 09/15/23 08:49> <Eleazar Hernandez - Last Filed: 09/15/23 12:05> - AGATHA I completed the quick note portion of this chart signed Han Clark PA-C (Han Clark) Was pt. sent in by a medical professional or institution (, PA, GANG HEMSTITCHING MACHINE OPERATOR, urgent care, hospital, or [facility]...) When possible be specific @ -No Did you speak to anyone other than the patient for history (EMS, parent, family, police, friend...)? What history was obtained from this source @ -No Did you review nursing and triage notes (agree or disagree)? Why? @ -I reviewed and agree with nursing and triage notes Were old charts reviewed (outside hosp., previous admission, EMS record, old EKG, old radiological studies, urgent care reports/EKG's, [facility] records)? Report findings @ -No old charts were reviewed Differential Diagnosis (chest pain, altered mental status, abdominal pain women, abdominal pain men, vaginal bleeding, weakness, fever, dyspnea, syncope, headache, dizziness, GI bleed, back pain, seizure, CVA, palpatations, mental health, musculoskeletal)? @ -Differential Chest Pain: Stable Angina, Unstable Angina, STEMI, NSTEMI Aortic Dissection, Pneumothorax, Musculoskeletal, Esophageal Spasm GERD, Cholecystitis, Pancreatitis, Zoster, this is not meant to be an all-inclusive list. EKG interpreted by me (3pts min.). @ -As above X-rays interpreted by me (1pt min.). @ -Chest x-ray shows no acute process CT interpreted by me (1pt min.). @ -None done U/S interpreted by me (1pt. min.). @ -None done What testing was considered but not performed or refused? (CT, X-rays, U/S, labs)? Why? @ -None What meds were considered but not given or refused? Why? @ -None Did you discuss the management of the patient with other professionals (professionals i.e. DrJ Carlos, PA, GANG HEMSTITCHING MACHINE OPERATOR, lab, RT, psych nurse, social group worker, steam and power superintendent, teacher, licensing officer, pillowcase cleaner)? Give summary @ -Case was discussed with Dr. Bowers, who will admit for hospital call. Was smoking cessation discussed for >3mins.? @ -No Was critical care preformed (if so, how long)? @ -No Were there social determinants of health that impacted care today? How? (Homelessness, low income, unemployed, alcoholism, drug addiction, transportation, low edu. Level, literacy, decrease access to med. care, senior care, rehab)? @ -No Was there de-escalation of care discussed even if they declined (Discuss DNR or withdrawal of care, Hospice)? DNR status @ -No What co-morbidities impacted this encounter? (DM, HTN, Smoking, COPD, CAD, Cancer, CVA, ARF, Chemo, Hep., AIDS, mental health diagnosis, sleep apnea, morbid obesity)? @ -History of previous cardiac disease and myocardial infarction Was patient admitted / discharged? Hospital course, mention meds given and route, prescriptions, significant lab abnormalities, going to OR and other pertinent info. @ -Patient reevaluated and remained symptom-free. Patient updated on results and plan. Patient will be admitted. Admission orders written. Cardiac consult will be placed. Undiagnosed new problem with uncertain prognosis? @ -No Drug Therapy requiring intensive monitoring for toxicity (Heparin, Nitro, Insulin, Cardizem)? @ -No Were any procedures done? @ -No Diagnosis/symptom? @ -Chest pain Acute, or Chronic, or Acute on Chronic? @ -Acute Uncomplicated (without systemic symptoms) or Complicated (systemic symptoms)? @ -default Side effects of treatment? @ -No Exacerbation, Progression, or Severe Exacerbation? @ -No Poses a threat to life or bodily function? How? (Chest pain, [place], [place], pneumonia, PE, COPD, DKA, ARF, appy, cholecystitis, CVA, Diverticulitis, Homicidal, Suicidal, threat to staff... and all critical care pts) @ -No (Eleazar Hernandez) Disposition <Han Clark - Last Filed: 09/15/23 08:49> Is patient prescribed a controlled substance at d/c from ED?: No Time of Disposition: 12:05 <Eleazar Hernandez - Last Filed: 09/15/23 12:05> Clinical Impression: Chest pain Disposition: ADMITTED IP TO THIS HOSP Referrals: None,Stated [Primary Care Provider] - 1-2 days
[2023-09-15 09:05] LABS: Basophils % (A) 0 %; Eosinophils # (A) 0.2 k/uL (0-0.7); Eosinophils % (A) 3 %; HCT 44.8 % (39.0-53.0); Lymphocytes # (A) 2.7 k/uL (1.0-4.8); Lymphocytes % (A) 40 %; MCH 29.4 pg (25.0-35.0); MCHC 33.5 g/dL (31.0-37.0); Mean Platelet Volume 8.8; Monocytes # (A) 0.5 k/uL (0-1.0); Monocytes % (A) 7 %; Neutrophils # (A) 3.3 k/uL (1.3-7.7); Neutrophils % (A) 48 %; Platelet Count 262 k/uL (150-450); RBC 5.09 m/uL (4.30-5.90); RDW 13.3 % (11.5-15.5); WBC 6.8 k/uL (3.8-10.6)
[2023-09-15 09:20] LABS: Partial Thromboplastin Time 28.6 sec (22.0-30.0); Prothrombin Time 10.5 sec (10.0-12.5)
[2023-09-15 09:21] LABS: ALT 15 U/L (4-49); AST 24 U/L (17-59); African American GFR (CKD) >90 (>60 ml/min/1.73 sqM); Albumin 3.7 g/dL (3.5-5.0); Alkaline Phosphatase 91 U/L (38-126); Anion Gap 9 mmol/L; Blood Urea Nitrogen 21 mg/dL (9-20); Calcium 9.5 mg/dL (8.4-10.2); Carbon Dioxide 23 mmol/L (22-30); Chloride 108 mmol/L (98-107); Glucose 169 mg/dL (74-99); Magnesium 1.6 mg/dL (1.6-2.3); Non-African American GFR(CKD) 80 (>60 ml/min/1.73 sqM); Potassium 4.2 mmol/L (3.5-5.1); Sodium 140 mmol/L (137-145); Total Bilirubin 0.5 mg/dL (0.2-1.3); Total Protein 6.8 g/dL (6.3-8.2)
--- NOTE | 2023-09-15 09:36 | XR ---
EXAMINATION TYPE: XR chest 2V DATE OF EXAM: 09/15/2023 COMPARISON: Chest x-ray August 30, 2023 HISTORY: Chest pain TECHNIQUE: Frontal and lateral views of the chest are obtained. FINDINGS: There is no suspicious new focal air space opacity, pleural effusion, or pneumothorax seen . The cardiac silhouette size is stable and within normal limits. The osseous structures are intac t. IMPRESSION: No acute process. No significant change from prior.
[2023-09-15] MEDS ORDERED: ASPIRIN 81 MG PO STA (12:05)
[2023-09-15] MEDS ORDERED: NITROGLYCERIN SL TABS 0.4 MG TAB SUBLINGUAL PRN (12:05)
[2023-09-15] MEDS ORDERED: NITROGLYCERIN OINT 1 INCH/GM PACKET TOPICAL SCH (12:15)
[2023-09-15] MEDS ORDERED: LOSARTAN 25 MG TAB PO STA (13:57)
[2023-09-15] MEDS ORDERED: ISOSORBIDE MONONITRATE ER 30 MG TAB.ER.24H PO SCH (14:00)
[2023-09-15] MEDS ORDERED: DEXTROSE 50% SYRINGE 50 ML IVP PRN ×2 (14:27)
[2023-09-15] MEDS: NICOTINE 14MG/24HR PATCH TRANSDERM SCH (14:47)
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
[2023-09-15 17:14] LABS: Glucose,Whole Blood 200 mg/dL (70-110)
[2023-09-15] MEDS: INSULIN ASPART (NovoLOG) 100 UNIT/ML VIAL SQ SCH ×2 (17:24→21:58)
[2023-09-15] MEDS: carvediloL 6.25 MG TAB PO SCH (17:24)
[2023-09-15] MEDS ORDERED: carvediloL 3.125 MG TAB PO SCH (17:30)
[2023-09-15 20:15] LABS: Glucose,Whole Blood 190 mg/dL (70-110)
[2023-09-15] MEDS ORDERED: ATORVASTATIN 80 MG TAB PO SCH (21:00)
[2023-09-15] MEDS ORDERED: INSULIN DETEMIR (LEVEMIR) 100 UNIT/ML SYR SQ SCH (21:00)
--- NOTE | 2023-09-16 01:19 | HP ---
HISTORY AND PHYSICAL CHIEF COMPLAINT: Chest pain. HISTORY OF PRESENT ILLNESS: This is a 48-year-old gentleman with a past medical history of multiple medical problems, who was admitted with [id number]-elevation myocardial infarction. Recently, cardiac cath showed a PDA stenosis of 60% to 70%. Medical management was ordered at this time. The patient is complaining of chest pain, which is felt in the anterior part of the chest, without any radiation or any relation with exertion at this time. The initial troponins are negative. Troponins are 0.014. The EKG which I reviewed personally showed nonspecific ST-T changes. There is no history of any fever, rigor, or chills. PAST MEDICAL HISTORY: History of CAD; cardiac catheterization; history of diabetes mellitus, type 2; and multiple complex medical issues. Rest of the history and rest of the chart are also reviewed. CURRENT MEDICATIONS: Reviewed include Januvia. Doses and rest of the medications are reviewed. ALLERGIES: Blue dye. FAMILY HISTORY: History of coronary artery disease in the family. SOCIAL HISTORY: History of smoking and THC. REVIEW OF SYSTEMS: Fourteen-point review is negative except as mentioned earlier. PHYSICAL EXAMINATION: VITAL SIGNS: Pulse is 69, blood pressure 181/108, respirations 18. CHEST: Few scattered rhonchi and crackles. ABDOMEN: Soft and nontender. LEGS: No edema. NERVOUS SYSTEM: Nonfocal. SKIN: No ulcers or rashes. JOINTS: No active deforming arthropathy. LABORATORY DATA: Reviewed. ASSESSMENT: 1. Chest pain, possible unstable angina. 2. History of coronary artery disease and cardiac catheterization. 3. Diabetes mellitus, type 2. 4. History of continued ongoing nicotine dependence. 5. Schizophrenia. 6. Remote history of crack cocaine. RECOMMENDATIONS AND DISCUSSION: In this 48-year-old gentleman presented with multiple complex medical issues, we will monitor the patient closely. Continue with current medications and continue symptomatic treatment. Cardiology consult. Rule out myocardial infarction, unstable angina protocol. Repeat labs. Recommend smoking cessation. Resume the home medications. Guarded prognosis. Further recommendations to follow. See orders for details. MMODL / IJN: [id number] /
[2023-09-16 06:43] LABS: Glucose,Whole Blood 111 mg/dL (70-110)
[2023-09-16] MEDS: INSULIN ASPART (NovoLOG) 100 UNIT/ML VIAL SQ SCH ×2 (07:05→13:09)
[2023-09-16] MEDS: carvediloL 6.25 MG TAB PO SCH (07:17)
[2023-09-16] MEDS ORDERED: LINAGLIPTIN 5 MG TABLET PO SCH (09:00)
[2023-09-16] MEDS ORDERED: ISOSORBIDE MONONITRATE ER 60 MG TAB.ER.24H PO SCH (09:00)
[2023-09-16] MEDS ORDERED: ASPIRIN 81 MG PO SCH (09:00)
[2023-09-16] MEDS ORDERED: LOSARTAN 25 MG TAB PO SCH (09:00)
[2023-09-16] MEDS ORDERED: ASPIRIN 325 MG TAB PO SCH (09:00)
[2023-09-16] MEDS ORDERED: LOSARTAN 50 MG TAB PO SCH (09:00)
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
[2023-09-16] MEDS: NICOTINE 14MG/24HR PATCH TRANSDERM SCH (10:03)
[2023-09-16 11:08] LABS: Basophils # (A) 0.02 X 10*3/uL (0.00-0.10); Basophils % (A) 0.3 %; Eosinophils # (A) 0.24 X 10*3/uL (0.04-0.35); Eosinophils % (A) 3.6 %; HCT 41.8 % (39.6-50.0); HGB 14.1 g/dL (13.0-17.0); Lymphocytes # (A) 2.14 X 10*3/uL (0.90-5.00); Lymphocytes % (A) 32.5 %; MCH 29.6 pg (27.0-32.0); MCHC 33.7 g/dL (32.0-37.0); MCV 87.6 FL (80.0-97.0); Mean Platelet Volume 11.5 FL (9.5-12.2); Monocytes # (A) 0.74 X 10*3/uL (0.20-1.00); Monocytes % (A) 11.2 %; NRBC Per 100 WBC 0 X 10*3/uL (0.00-0.01); Neutrophils # (A) 3.41 X 10*3/uL (1.80-7.70); Neutrophils % (A) 51.9 %; Platelet Count 281 X 10*3/uL (140-440); RBC 4.77 X 10*6/uL (4.40-5.60); RDW 13.3 % (11.5-14.5); WBC 6.58 X 10*3/uL (4.50-10.00)
[2023-09-16 11:17] LABS: ALT 10 U/L (10-49); AST 15 U/L (14-35); Albumin 3.6 g/dL (3.8-4.9); Albumin/Globulin Ratio 1.38 Ratio (1.60-3.17); Alkaline Phosphatase 96 U/L (41-126); BUN/Creat Ratio 14.73 Ratio (12.00-20.00); Blood Urea Nitrogen 16.2 mg/dL (9.0-27.0); Calcium 9.9 mg/dL (8.7-10.3); Carbon Dioxide 26.7 mmol/L (21.6-31.8); Chloride 108 mmol/L (96-109); Chol/HDL Ratio 2.58 Ratio; Globulin 2.6 g/dL (1.6-3.3); Glucose 119 mg/dL (70-110); LDL Cholesterol,Calculated 74.9 mg/dL (0.0-131.0); Potassium 4.3 mmol/L (3.5-5.5); Sodium 145 mmol/L (135-145); Total Bilirubin 0.4 mg/dL (0.3-1.2); Total Protein 6.2 g/dL (6.2-8.2); VLDL Calculation 13.18 mg/dL (5.00-40.00)
[2023-09-16 13:08] LABS: Glucose,Whole Blood 122 mg/dL (70-110)
[2023-09-16 14:40] VITALS: BP 146/85; PULSE 73; RESP 16; TEMP 98.7
--- NOTE | 2023-09-17 06:16 | P.DS ---
Providers Date of admission: 09/15/23 12:05 Expected date of discharge: 09/16/23 Attending physician: Hood Bowers MD Consults: 09/15/23 12:05 Consult Physician Urgent Consulting Provider: Junior Sanchez Consult Reason/Comments: cp Do you want consulting provider notified?: Yes Primary care physician: Stated None Hospital Course: Final diagnosis Chest pain, possible unstable angina History of coronary artery disease and cardiac catheterization recently Diabetes mellitus, type II History of continued ongoing nicotine dependence Schizophrenia history Remote history of crack cocaine Noncompliance GI prophylaxis DVT prophylaxis Full code Discharge disposition Patient is being discharged in a stable condition with guarded prognosis to home. Patient will follow-up with Dr. Bryon Novak to establish in the outpatient setting upon discharge. Patient is to continue with current cardiac medications and close outpatient follow-up with cardiology as scheduled. Total time taken is greater than 35 minutes. Hospital course This is a 48-year-old male who was recently admitted with chest pain with ACS ruled out. Patient evaluated by cardiology and has had recent multiple hospitalizations underwent cardiac catheterization recommending maximizing comanagement and compliance to medications along with complete tobacco and drug use cessation. Patient visits the ER frequently and has had multiple hospitalizations and high risk for rehospitalization due to Noncompliance. Patient Has Been Cleared by Cardiology for Discharge Home Today with Outpatient Follow-Up. Please Refer to Cardiology No for Further HPI. Currently no reports of chest pain, shortness of breath, or palpitations. Patient is afebrile. No reports of nausea or vomiting and patient is tolerating diet. Patient will be discharged home today. Guarded prognosis and high risk for readmissions due to patient's significant noncompliance. Physical exam: Gen: This is a 48-year-old male who is awake, alert and oriented 3, well- developed, well-nourished HEENT: Head is atraumatic, normocephalic. Pupils equal, round. Sclerae is anicteric. NECK: Supple. No JVD. No lymphadenopathy. No thyromegaly. LUNGS: Clear to auscultation. No wheezes or rhonchi. No intercostal retractions. HEART: Regular rate and rhythm. No murmur. ABDOMEN: Soft. Bowel sounds are present. No masses. No tenderness. EXTREMITIES: No pedal edema. No calf tenderness. NEUROLOGICAL: Patient is awake, alert and oriented x3. Cranial nerves 2 through 12 are grossly intact. Please refer to medication reconciliation sheet for a list of medications. The impression and plan of care has been dictated by Doris Vital, Nurse Practitioner as directed. Dr. Kishore MD I have performed a history and examination and MDM of this patient, discussed the same with the dictator, and agree with the dictator's assessment and plan as written ,documented as a scribe. Based on total visit time, I have performed more than 50% of the visit. Patient Condition at Discharge: Fair Plan - Discharge Summary New Discharge Prescriptions: New Nicotine 14Mg/24Hr Patch [Habitrol] 1 patch TRANSDERM DAILY #30 patch carvediloL [Coreg] 6.25 mg PO BID-W/MEALS 30 Days #60 tab Losartan [Cozaar] 50 mg PO DAILY 30 Days #30 tab Isosorbide Mononitrate ER [Imdur] 60 mg PO DAILY #30 tab Nitroglycerin Sl Tabs [Nitrostat] 0.4 mg SUBLINGUAL Q5M PRN #20 tab PRN Reason: Chest Pain Continue sitaGLIPtin PHOSPHATE [Januvia] 25 mg PO DAILY #60 tab Atorvastatin [Lipitor] 80 mg PO HS #60 tab Aspirin 81 mg PO DAILY #60 tab metFORMIN HCL ER [Glucophage XR] 500 mg PO DAILY #60 tab Insulin Detemir (Levemir) [Levemir] 30 unit SQ HS #7 each Discontinued carvediloL [Coreg] 3.125 mg PO BID-W/MEALS #90 tab Losartan [Cozaar] 25 mg PO DAILY #60 tab Discharge Medication List Aspirin 81 mg PO DAILY #60 tab 09/02/23 [Rx] Atorvastatin [Lipitor] 80 mg PO HS #60 tab 09/02/23 [Rx] Insulin Detemir (Levemir) [Levemir] 30 unit SQ HS #7 each 09/02/23 [Rx] metFORMIN HCL ER [Glucophage XR] 500 mg PO DAILY #60 tab 09/02/23 [Rx] sitaGLIPtin PHOSPHATE [Januvia] 25 mg PO DAILY #60 tab 09/02/23 [Rx] Isosorbide Mononitrate ER [Imdur] 60 mg PO DAILY #30 tab 09/16/23 [Rx] Losartan [Cozaar] 50 mg PO DAILY 30 Days #30 tab 09/16/23 [Rx] Nicotine 14Mg/24Hr Patch [Habitrol] 1 patch TRANSDERM DAILY #30 patch 09/16/23 [Rx] Nitroglycerin Sl Tabs [Nitrostat] 0.4 mg SUBLINGUAL Q5M PRN #20 tab 09/16/23 [Rx] carvediloL [Coreg] 6.25 mg PO BID-W/MEALS 30 Days #60 tab 09/16/23 [Rx] Follow up Appointment(s)/Referral(s): [facility] [Provider Group] - 2 Weeks Sherry Dela Cruz MD [STAFF PHYSICIAN] - 1 Week Patient Instructions/Handouts: Chest Pain (DC) Activity/Diet/Wound Care/Special Instructions: Activity Limited until follow-up Follow-up with primary care provider and establish in the outpatient setting Follow-up with cardiology in 1-2 weeks Continue taking medications as prescribed Avoid all alcohol and tobacco and smoking use and exposure Discharge Disposition: HOME SELF-CARE
== END 2023-09-16 14:37 | disposition home or self-care (01) ==
LOC: EC 08:19 → 6NMEDSUR 12:05
PROVIDERS: ADMIT Internal Medicine; ATTEND Internal Medicine
DX: R07.89 Other chest pain (principal); I25.10 Atherosclerotic heart disease of native coronary artery without angina pectoris; I11.9 Hypertensive heart disease without heart failure; E11.9 Type 2 diabetes mellitus without complications; I08.1 Rheumatic disorders of both mitral and tricuspid valves; E78.5 Hyperlipidemia, unspecified; F20.9 Schizophrenia, unspecified; F17.200 Nicotine dependence, unspecified, uncomplicated; Z91.199 Patient's noncompliance with other medical treatment and regimen due to unspecified reason; I25.2 Old myocardial infarction; Z71.6 Tobacco abuse counseling; Z79.82 Long term (current) use of aspirin; Z79.4 Long term (current) use of insulin; Z79.84 Long term (current) use of oral hypoglycemic drugs; Z79.899 Other long term (current) drug therapy; Z87.828 Personal history of other (healed) physical injury and trauma; Z87.898 Personal history of other specified conditions; Z91.048 Other nonmedicinal substance allergy status; Z98.890 Other specified postprocedural states; Z82.49 Family history of ischemic heart disease and other diseases of the circulatory system
CPT/HCPCS: 99285; 36415; 93005; 80061; 80053 ×2; 83735; 84484; 85025 ×2; 85610; 85730; 83036; 71046; G0378 ×2; S4990

== ENCOUNTER 2023-10-01 00:40 | Emergency (ER) | payer OTHER ==
[2023-10-01] MEDS ORDERED: IBUPROFEN 800 MG TAB PO STA (01:08)
[2023-10-01] MEDS ORDERED: AMOXIC-POT CLAV 875MG STARTER PACK 2 TAB BTL PO STA (01:08)
--- NOTE | 2023-10-01 01:08 | ED ---
ENT HPI - General Chief complaint: Dental/Oral Stated complaint: Dental Pain Time Seen by Provider: 10/01/23 01:06 Source: patient Mode of arrival: ambulatory Limitations: no limitations - History of Present Illness Initial comments: 48-year-old male presenting with chief complaint of dental pain. Pain is present on the right lower side. Pain started today. He admits to swelling. Breathing or swallowing. No fevers or chills. No nausea or vomiting she does not have a dentist currently. - Related Data Previous Rx's Medication Instructions Recorded Aspirin 81 mg PO DAILY #60 tab 09/02/23 Atorvastatin [Lipitor] 80 mg PO HS #60 tab 09/02/23 Insulin Detemir (Levemir) [Levemir] 30 unit SQ HS #7 each 09/02/23 metFORMIN HCL ER [Glucophage XR] 500 mg PO DAILY #60 tab 09/02/23 sitaGLIPtin PHOSPHATE [Januvia] 25 mg PO DAILY #60 tab 09/02/23 Isosorbide Mononitrate ER [Imdur] 60 mg PO DAILY #30 tab 09/16/23 Losartan [Cozaar] 50 mg PO DAILY 30 Days #30 tab 09/16/23 Nicotine 14Mg/24Hr Patch [Habitrol] 1 patch TRANSDERM DAILY #30 patch 09/16/23 Nitroglycerin Sl Tabs [Nitrostat] 0.4 mg SUBLINGUAL Q5M PRN #20 tab 09/16/23 carvediloL [Coreg] 6.25 mg PO BID-W/MEALS 30 Days #60 09/16/23 tab Amoxic-Pot Clav 875-125Mg 1 tab PO Q12HR 7 Days #14 tab 10/01/23 [Augmentin 875-125] Allergies Allergy/AdvReac Type Severity Reaction Status Date / Time blue dye AdvReac Rapid Verified 10/01/23 01:05 Heart Rate Review of Systems ROS Statement: Those systems with pertinent positive or pertinent negative responses have been documented in the HPI. ROS Other: All systems not noted in ROS Statement are negative. Past Medical History Past Medical History: Coronary Artery Disease (CAD), Diabetes Mellitus Additional Past Medical History / Comment(s): pt type 1 diabetes Last Myocardial Infarction Date:: 2021 History of Any Multi-Drug Resistant Organisms: None Reported Past Surgical History: Orthopedic Surgery Additional Past Surgical History / Comment(s): Knee surgey 1993 Past Anesthesia/Blood Transfusion Reactions: No Reported Reaction Past Psychological History: Schizophrenia Smoking Status: Current every day smoker Past Alcohol Use History: Occasional Past Drug Use History: Marijuana - Past Family History Father Family Medical History: Coronary Artery Disease (CAD) General Exam Limitations: no limitations General appearance: alert, in no apparent distress Head exam: Present: atraumatic Eye exam: Present: normal appearance, EOMI ENT exam: Present: mucous membranes moist Expanded Mouth exam: Present: normal external inspection, tongue normal. Absent: drooling, trismus, muffled voice Teeth exam: Present: dental caries, fractured tooth #, dental tenderness # Neck exam: Present: normal inspection Respiratory exam: Absent: respiratory distress Neurological exam: Present: alert, oriented X3 Psychiatric exam: Present: normal affect, normal mood Course Vital Signs 10/01/23 01:00 Temperature 97.0 F L Pulse Rate 80 Respiratory 20 Rate Blood Pressure 167/94 O2 Sat by Pulse 100 Oximetry Medical Decision Making - Medical Decision Making Was pt. sent in by a medical professional or institution (Dr. PA, PHP SOFTWARE ENGINEER, urgent care, hospital, or [place] health care facility...) When possible be specific @ -No Did you speak to anyone other than the patient for history (EMS, parent, family, police, friend...)? What history was obtained from this source @ -No Did you review nursing and triage notes (agree or disagree)? Why? @ -I reviewed and agree with nursing and triage notes Were old charts reviewed (outside hosp., previous admission, EMS record, old EKG, old radiological studies, urgent care reports/EKG's, [place] health care facility records)? Report findings @ -No old charts were reviewed Differential Diagnosis (chest pain, altered mental status, abdominal pain women, abdominal pain men, vaginal bleeding, weakness, fever, dyspnea, syncope, headache, dizziness, GI bleed, back pain, seizure, CVA, palpatations, mental health, musculoskeletal)? @ -Fragile includes toothache, dental abscess, Jesus's angina, this is not an all inclusive list EKG interpreted by me (3pts min.). @ -As above X-rays interpreted by me (1pt min.). @ -None done CT interpreted by me (1pt min.). @ -None done U/S interpreted by me (1pt. min.). @ -None done What testing was considered but not performed or refused? (CT, X-rays, U/S, labs)? Why? @ -None What meds were considered but not given or refused? Why? @ -None Did you discuss the management of the patient with other professionals (professionals i.e. , PA, PHP SOFTWARE ENGINEER, lab, RT, psych nurse, director social, appliances sample maker, teacher, fisheries officer, casework supervisor)? Give summary @ -No Was smoking cessation discussed for >3mins.? @ -No Was critical care preformed (if so, how long)? @ -No Were there social determinants of health that impacted care today? How? (Homelessness, low income, unemployed, alcoholism, drug addiction, transportation, low edu. Level, literacy, decrease access to med. care, nursing home, rehab)? @ -No Was there de-escalation of care discussed even if they declined (Discuss DNR or withdrawal of care, Hospice)? DNR status @ -No What co-morbidities impacted this encounter? (DM, HTN, Smoking, COPD, CAD, Cancer, CVA, ARF, Chemo, Hep., AIDS, mental health diagnosis, sleep apnea, morbid obesity)? @ -None Was patient admitted / discharged? Hospital course, mention meds given and route, prescriptions, significant lab abnormalities, going to OR and other pertinent info. @ -48-year-old male presenting with complaint of dental pain. History and physical examination are conducted. There is swelling seen to the right lower side as well as obvious dental caries and tenderness. No brawny induration. No midline shift. No difficulty breathing or swallowing. Patient will be treated for dental abscess with Augmentin. Instructed to follow-up with dental clinic. Follow-up with PCP. Report back to ER with any new or worsening symptoms. Discussed return parameters and answered all questions. Patient conveyed verbal understanding and agreed to the plan. I discussed this case in detail with my attending Dr. Bedolla Undiagnosed new problem with uncertain prognosis? @ -No Drug Therapy requiring intensive monitoring for toxicity (Heparin, Nitro, Insulin, Cardizem)? @ -No Were any procedures done? @ -No Diagnosis/symptom? @ -Dental abscess Acute, or Chronic, or Acute on Chronic? @ -Acute Uncomplicated (without systemic symptoms) or Complicated (systemic symptoms)? @ -Uncomplicated Side effects of treatment? @ -No Exacerbation, Progression, or Severe Exacerbation? @ -No Poses a threat to life or bodily function? How? (Chest pain, [place], [place], pneumonia, PE, COPD, DKA, ARF, appy, cholecystitis, CVA, Diverticulitis, Homicidal, Suicidal, threat to staff... and all critical care pts) @ -No Disposition Clinical Impression: Dental abscess Disposition: HOME SELF-CARE Condition: Good Instructions (If sedation given, give patient instructions): Dental Abscess (ED) Additional Instructions: Please follow up with the [facility]. [facility] true[x] [place] [address]. Phone number for new patients or [phone] for existing patients. Prescriptions: Amoxic-Pot Clav 875-125Mg [Augmentin 875-125] 1 tab PO Q12HR 7 Days #14 tab Is patient prescribed a controlled substance at d/c from ED?: No Referrals: None,Stated [Primary Care Provider] - 1-2 days Time of Disposition: 01:08
[2023-10-01 01:15] VITALS: BP 167/94; PULSE 80; RESP 20; TEMP 97
== END 2023-10-01 02:05 | disposition home or self-care (01) ==
LOC: EC 00:40
DX: K04.7 Periapical abscess without sinus (principal); E11.9 Type 2 diabetes mellitus without complications; I25.10 Atherosclerotic heart disease of native coronary artery without angina pectoris; F12.90 Cannabis use, unspecified, uncomplicated; F17.200 Nicotine dependence, unspecified, uncomplicated; Z91.041 Radiographic dye allergy status
CPT/HCPCS: 99282

== ENCOUNTER 2023-10-10 12:06 | Emergency (ER) | payer OTHER ==
--- NOTE | 2023-10-10 12:23 | ED ---
Chest Pain HPI - General Source: patient, RN notes reviewed Mode of arrival: ambulatory Limitations: no limitations <Han Clark - Last Filed: 10/10/23 12:23> <Henok Bedolla - Last Filed: 10/10/23 16:52> - General Chief Complaint: Chest Pain Stated Complaint: chest pains Time Seen by Provider: 10/10/23 12:23 - History of Present Illness Initial Comments: 48-year-old male presents emergency from chief complaint chest pain. Patient states started a few hours ago. He has a history of hypertension hyperlipidemia and diabetes. Patient states he has no prior cardiac stents but states that he had a heart attack in the past. Patient states he has centralized chest pain pressure (Han Clark) Patient had an episode of chest pain which is currently resolved. Patient had heart cath within the past one month which showed single vessel disease that was not able to be stented due to small caliber. He is on medical management. He denies associated dyspnea. No cough. No fever. Pain is resolved currently. There is no associated vomiting or diaphoresis. (Henok Bedolla) - Related Data Previous Rx's Medication Instructions Recorded Aspirin 81 mg PO DAILY #60 tab 09/02/23 Atorvastatin [Lipitor] 80 mg PO HS #60 tab 09/02/23 Insulin Detemir (Levemir) [Levemir] 30 unit SQ HS #7 each 09/02/23 metFORMIN HCL ER [Glucophage XR] 500 mg PO DAILY #60 tab 09/02/23 sitaGLIPtin PHOSPHATE [Januvia] 25 mg PO DAILY #60 tab 09/02/23 Isosorbide Mononitrate ER [Imdur] 60 mg PO DAILY #30 tab 09/16/23 Losartan [Cozaar] 50 mg PO DAILY 30 Days #30 tab 09/16/23 Nicotine 14Mg/24Hr Patch [Habitrol] 1 patch TRANSDERM DAILY #30 patch 09/16/23 Nitroglycerin Sl Tabs [Nitrostat] 0.4 mg SUBLINGUAL Q5M PRN #20 tab 09/16/23 carvediloL [Coreg] 6.25 mg PO BID-W/MEALS 30 Days #60 09/16/23 tab Amoxic-Pot Clav 875-125Mg 1 tab PO Q12HR 7 Days #14 tab 10/01/23 [Augmentin 875-125] Allergies Allergy/AdvReac Type Severity Reaction Status Date / Time blue dye AdvReac Rapid Verified 10/10/23 12:18 Heart Rate Review of Systems ROS Other: All systems not noted in ROS Statement are negative. <Han Clark - Last Filed: 10/10/23 12:23> ROS Other: All systems not noted in ROS Statement are negative. <Henok Bedolla - Last Filed: 10/10/23 16:52> ROS Statement: Those systems with pertinent positive or pertinent negative responses have been documented in the HPI. Past Medical History Past Medical History: Coronary Artery Disease (CAD), Diabetes Mellitus Additional Past Medical History / Comment(s): pt type 1 diabetes Last Myocardial Infarction Date:: 2021 History of Any Multi-Drug Resistant Organisms: None Reported Past Surgical History: Orthopedic Surgery Additional Past Surgical History / Comment(s): Knee surgey 1993 Past Anesthesia/Blood Transfusion Reactions: No Reported Reaction Past Psychological History: Schizophrenia Smoking Status: Current every day smoker Past Alcohol Use History: Occasional Past Drug Use History: Marijuana - Past Family History Father Family Medical History: Coronary Artery Disease (CAD) <Han Clark - Last Filed: 10/10/23 12:23> General Exam Limitations: no limitations <Han Clark - Last Filed: 10/10/23 12:23> General appearance: alert, in no apparent distress Head exam: Present: atraumatic, normocephalic Eye exam: Present: normal appearance, PERRL ENT exam: Present: normal exam Neck exam: Present: normal inspection. Absent: tenderness, meningismus Respiratory exam: Present: normal lung sounds bilaterally. Absent: respiratory distress, wheezes Cardiovascular Exam: Present: regular rate, normal rhythm GI/Abdominal exam: Present: soft. Absent: distended, tenderness, guarding Extremities exam: Present: normal inspection, normal capillary refill Neurological exam: Present: alert, oriented X3, CN II-XII intact. Absent: motor sensory deficit Psychiatric exam: Present: normal affect, normal mood Skin exam: Present: warm, dry, intact. Absent: cyanosis, diaphoretic <Henok Bedolla - Last Filed: 10/10/23 16:52> - General Exam Comments Initial Comments: Visual Physical Exam Vital signs reviewed General: Well-appearing, nontoxic, no acute distress. Head: Normocephalic, atraumatic Eyes: PERRLA, EOMI ENT: Airway patent Chest: Nonlabored breathing Skin: No visual rash, normal skin tone Neuro: Alert and oriented 3 Musculoskeletal: No gross abnormalities (Han Clark) Course Vital Signs 10/10/23 10/10/23 12:15 15:42 Temperature 97.6 F Pulse Rate 81 81 Respiratory 20 16 Rate Blood Pressure 187/121 166/103 O2 Sat by Pulse 99 99 Oximetry Chest Pain MDM <Han Clark - Last Filed: 10/10/23 12:23> <GraemeHenok Trent - Last Filed: 10/10/23 16:52> - MDM I completed the quick note portion of this chart signed Han Clark PA-C (Han Clark) Was pt. sent in by a medical professional or institution (MERCEDES Mac, CORROSION TECHNICIAN, urgent care, hospital, or intermediate...) When possible be specific @ -[No] Did you speak to anyone other than the patient for history (EMS, parent, family, police, friend...)? What history was obtained from this source @ -[No] Did you review nursing and triage notes (agree or disagree)? Why? @ -[I reviewed and agree with nursing and triage notes] Were old charts reviewed (outside hosp., previous admission, EMS record, old EKG, old radiological studies, urgent care reports/EKG's, intermediate records)? Report findings @ -[No old charts were reviewed] Differential Diagnosis (chest pain, altered mental status, abdominal pain women, abdominal pain men, vaginal bleeding, weakness, fever, dyspnea, syncope, headache, dizziness, GI bleed, back pain, seizure, CVA, palpatations, mental health, musculoskeletal)? @ Differential Chest Pain: Stable Angina, Unstable Angina, STEMI, NSTEMI Aortic Dissection, Pneumothorax, Musculoskeletal, Esophageal Spasm GERD, Cholecystitis, Pancreatitis, Zoster, this is not meant to be an all-inclusive list. EKG interpreted by me (3pts min.). @EKG: Sinus rhythm rate of 81, GA interval 120, QRS duration 89, QTC [address] segment elevation, T-wave inversion in lead 3 and aVF. X-rays interpreted by me (1pt min.). @ -Chest x-ray negative for acute cardiopulmonary findings, no pneumothorax, no focal pneumonia CT interpreted by me (1pt min.). @ -[None done] U/S interpreted by me (1pt. min.). @ -[None done] What testing was considered but not performed or refused? (CT, X-rays, U/S, labs)? Why? @ -[None] What meds were considered but not given or refused? Why? @ -[None] Did you discuss the management of the patient with other professionals (professionals i.e. , PA, CORROSION TECHNICIAN, lab, RT, psych nurse, geriatric social worker, bulb assembler, teacher, chief security officer, case packer)? Give summary @ -[No] Was smoking cessation discussed for >3mins.? @ -[No] Was critical care preformed (if so, how long)? @ -[No] Were there social determinants of health that impacted care today? How? (Homelessness, low income, unemployed, alcoholism, drug addiction, transportation, low edu. Level, literacy, decrease access to med. care, long term, rehab)? @ -[No] Was there de-escalation of care discussed even if they declined (Discuss DNR or withdrawal of care, Hospice)? DNR status @ -[No] What co-morbidities impacted this encounter? (DM, HTN, Smoking, COPD, CAD, Cancer, CVA, ARF, Chemo, Hep., AIDS, mental health diagnosis, sleep apnea, morbid obesity)? @ Hypertension, coronary artery disease Was patient admitted / discharged? Hospital course, mention meds given and ro norberto, prescriptions, significant lab abnormalities, going to OR and other pertinent info. @ -[38-year-old male with an episode of chest pressure which is resolved. EKG is sinus without ST segment elevation. Chest x-ray is clear. He has a normal CBC, normal CMP with the exception of hyperglycemia in a patient with known diabetes. He receives a 3 hour troponin test which remains negative. He had a heart cath performed Undiagnosed new problem with uncertain prognosis? @ -[No] Drug Therapy requiring intensive monitoring for toxicity (Heparin, Nitro, Insulin, Cardizem)? @ -[No] Were any procedures done? @ -[No] Diagnosis/symptom? @ -[default] Acute, or Chronic, or Acute on Chronic? @ -[default] Uncomplicated (without systemic symptoms) or Complicated (systemic symptoms)? @ -[default] Side effects of treatment? @ -[No] Exacerbation, Progression, or Severe Exacerbation? @ -[No] Poses a threat to life or bodily function? How? (Chest pain, [place], [place], pneumonia, PE, COPD, DKA, ARF, appy, cholecystitis, CVA, Diverticulitis, Homicidal, Suicidal, threat to staff... and all critical care pts) @ -[No] (Henok Bedolla) Disposition <Han Clark - Last Filed: 10/10/23 12:23> Is patient prescribed a controlled substance at d/c from ED?: No Time of Disposition: 16:52 <Henok Bedolla - Last Filed: 10/10/23 16:52> Clinical Impression: Chest pain, Diabetes mellitus Disposition: HOME SELF-CARE Condition: Fair Instructions (If sedation given, give patient instructions): Chest Pain (ED) Additional Instructions: Follow-up with your parking lot laborer and primary care provider. Referrals: None,Stated [Primary Care Provider] - 1-2 days
[2023-10-10 12:48] LABS: Basophils % (A) 0 %; Eosinophils # (A) 0.2 k/uL (0-0.7); Eosinophils % (A) 3 %; HCT 45.2 % (39.0-53.0); HGB 15.6 gm/dL (13.0-17.5); Lymphocytes # (A) 2.5 k/uL (1.0-4.8); Lymphocytes % (A) 34 %; MCH 30.3 pg (25.0-35.0); MCHC 34.4 g/dL (31.0-37.0); Mean Platelet Volume 8.9; Monocytes # (A) 0.5 k/uL (0-1.0); Monocytes % (A) 7 %; Neutrophils # (A) 4.1 k/uL (1.3-7.7); Neutrophils % (A) 55 %; Platelet Count 271 k/uL (150-450); RBC 5.14 m/uL (4.30-5.90); RDW 13.2 % (11.5-15.5); WBC 7.5 k/uL (3.8-10.6)
[2023-10-10 12:57] LABS: INR 0.9 (<1.2); Partial Thromboplastin Time 28.5 sec (22.0-30.0); Prothrombin Time 10.2 sec (10.0-12.5)
[2023-10-10 13:07] LABS: ALT 13 U/L (4-49); AST 22 U/L (17-59); African American GFR (CKD) >90 (>60 ml/min/1.73 sqM); Alkaline Phosphatase 113 U/L (38-126); Anion Gap 11 mmol/L; Blood Urea Nitrogen 32 mg/dL (9-20); Calcium 10.3 mg/dL (8.4-10.2); Carbon Dioxide 25 mmol/L (22-30); Chloride 102 mmol/L (98-107); Glucose 243 mg/dL (74-99); Magnesium 1.8 mg/dL (1.6-2.3); Non-African American GFR(CKD) >90 (>60 ml/min/1.73 sqM); Potassium 4.3 mmol/L (3.5-5.1); Sodium 138 mmol/L (137-145); Total Bilirubin 0.6 mg/dL (0.2-1.3); Total Protein 7.3 g/dL (6.3-8.2)
--- NOTE | 2023-10-10 13:52 | XR ---
EXAMINATION TYPE: XR chest 2V DATE OF EXAM: 10/10/2023 COMPARISON: 09/15/2023. HISTORY: Chest pain. TECHNIQUE: Frontal and lateral views of the chest are obtained. FINDINGS: There is no focal air space opacity, pleural effusion, or pneumothorax seen. The cardiac silhouette size is within normal limits. The osseous structures are intact. IMPRESSION: No acute cardiopulmonary process.
[2023-10-10 15:52] VITALS: RESP 16
[2023-10-10 17:24] VITALS: BP 156/76; PULSE 74; TEMP 98
== END 2023-10-10 17:18 | disposition home or self-care (01) ==
LOC: EC 12:06
DX: R07.9 Chest pain, unspecified (principal); E11.9 Type 2 diabetes mellitus without complications; I25.10 Atherosclerotic heart disease of native coronary artery without angina pectoris; F17.200 Nicotine dependence, unspecified, uncomplicated; F12.90 Cannabis use, unspecified, uncomplicated; Z91.041 Radiographic dye allergy status
CPT/HCPCS: 36415; 71046; 80053; 83735; 84484; 85025; 85610; 85730; 93005; 99285

== ENCOUNTER 2023-10-26 21:28 | Emergency (ER) | payer OTHER ==
--- NOTE | 2023-10-26 22:45 | ED ---
General Adult HPI - General Chief complaint: Nausea/Vomiting/Diarrhea Stated complaint: Rectal Pain Time Seen by Provider: 10/26/23 21:43 Source: patient Mode of arrival: ambulatory Limitations: no limitations - History of Present Illness Initial comments: 48-year-old male presenting with chief complaint of rectal pain. Patient states that the pain is been ongoing for 2 months. Patient is somewhat of a poor historian. He admits to intermittent diarrhea. He denies any blood in his stool or bleeding from the rectum. No abdominal pain. No nausea or vomiting. No fevers or chills. No discharge. - Related Data Previous Rx's Medication Instructions Recorded Aspirin 81 mg PO DAILY #60 tab 09/02/23 Atorvastatin [Lipitor] 80 mg PO HS #60 tab 09/02/23 Insulin Detemir (Levemir) [Levemir] 30 unit SQ HS #7 each 09/02/23 metFORMIN HCL ER [Glucophage XR] 500 mg PO DAILY #60 tab 09/02/23 sitaGLIPtin PHOSPHATE [Januvia] 25 mg PO DAILY #60 tab 09/02/23 Isosorbide Mononitrate ER [Imdur] 60 mg PO DAILY #30 tab 09/16/23 Losartan [Cozaar] 50 mg PO DAILY 30 Days #30 tab 09/16/23 Nicotine 14Mg/24Hr Patch [Habitrol] 1 patch TRANSDERM DAILY #30 patch 09/16/23 Nitroglycerin Sl Tabs [Nitrostat] 0.4 mg SUBLINGUAL Q5M PRN #20 tab 09/16/23 carvediloL [Coreg] 6.25 mg PO BID-W/MEALS 30 Days #60 09/16/23 tab Amoxic-Pot Clav 875-125Mg 1 tab PO Q12HR 7 Days #14 tab 10/01/23 [Augmentin 875-125] Allergies Allergy/AdvReac Type Severity Reaction Status Date / Time blue dye AdvReac Rapid Verified 10/10/23 12:18 Heart Rate Review of Systems ROS Statement: Those systems with pertinent positive or pertinent negative responses have been documented in the HPI. ROS Other: All systems not noted in ROS Statement are negative. Past Medical History Past Medical History: Coronary Artery Disease (CAD), Diabetes Mellitus Additional Past Medical History / Comment(s): pt type 1 diabetes Last Myocardial Infarction Date:: 2021 History of Any Multi-Drug Resistant Organisms: None Reported Past Surgical History: Orthopedic Surgery Additional Past Surgical History / Comment(s): Knee surgey 1993 Past Anesthesia/Blood Transfusion Reactions: No Reported Reaction Past Psychological History: Schizophrenia Smoking Status: Current every day smoker Past Alcohol Use History: Occasional Past Drug Use History: Marijuana - Past Family History Father Family Medical History: Coronary Artery Disease (CAD) General Exam Limitations: no limitations General appearance: alert, in no apparent distress Head exam: Present: atraumatic, normocephalic Eye exam: Present: normal appearance Neck exam: Present: normal inspection Respiratory exam: Absent: respiratory distress Cardiovascular Exam: Present: regular rate Rectal exam: Present: normal inspection, normal rectal tone. Absent: black stool, bloody stool, fecal impaction, hemorrhoids, mass, tenderness (Patient admits to some mild discomfort but no severe tenderness) Neurological exam: Present: alert, oriented X3 Psychiatric exam: Present: normal affect, normal mood Skin exam: Present: warm, dry Course Vital Signs 10/26/23 21:29 Temperature 98.0 F Pulse Rate 82 Respiratory 18 Rate Blood Pressure 184/76 O2 Sat by Pulse 99 Oximetry Medical Decision Making - Medical Decision Making Was pt. sent in by a medical professional or institution (, PA, NATIONAL ACCOUNTS RECRUITER, urgent care, hospital, or long term...) When possible be specific @ -No Did you speak to anyone other than the patient for history (EMS, parent, family, police, friend...)? What history was obtained from this source @ -No Did you review nursing and triage notes (agree or disagree)? Why? @ -I reviewed and agree with nursing and triage notes Were old charts reviewed (outside hosp., previous admission, EMS record, old EKG, old radiological studies, urgent care reports/EKG's, long term records)? Report findings @ -No old charts were reviewed Differential Diagnosis (chest pain, altered mental status, abdominal pain women, abdominal pain men, vaginal bleeding, weakness, fever, dyspnea, syncope, headache, dizziness, GI bleed, back pain, seizure, CVA, palpatations, mental health, musculoskeletal)? @ -Differential includes hemorrhoids, anal fissures, proctitis, irritation from wiping, mass, this is not an all inclusive list EKG interpreted by me (3pts min.). @ -As above X-rays interpreted by me (1pt min.). @ -None done CT interpreted by me (1pt min.). @ -None done U/S interpreted by me (1pt. min.). @ -None done What testing was considered but not performed or refused? (CT, X-rays, U/S, labs)? Why? @ -None What meds were considered but not given or refused? Why? @ -None Did you discuss the management of the patient with other professionals (professionals i.e. DrJ Carlos, PA, NATIONAL ACCOUNTS RECRUITER, lab, RT, psych nurse, health and social care teacher, subgrade tester, teacher, public health service officer, transplant case manager)? Give summary @ -No Was smoking cessation discussed for >3mins.? @ -No Was critical care preformed (if so, how long)? @ -No Were there social determinants of health that impacted care today? How? (Homelessness, low income, unemployed, alcoholism, drug addiction, transportation, low edu. Level, literacy, decrease access to med. care, snf, rehab)? @ -No Was there de-escalation of care discussed even if they declined (Discuss DNR or withdrawal of care, Hospice)? DNR status @ -No What co-morbidities impacted this encounter? (DM, HTN, Smoking, COPD, CAD, Cancer, CVA, ARF, Chemo, Hep., AIDS, mental health diagnosis, sleep apnea, morbid obesity)? @ -None Was patient admitted / discharged? Hospital course, mention meds given and route, prescriptions, significant lab abnormalities, going to OR and other pertinent info. @ -48-year-old male presenting with chief complaint of rectal pain ongoing for 2 months. No bleeding, discharge, abdominal pain, fevers. Admits to some diarrhea. On rectal exam there is no gross abnormality, no exquisite tenderness on digital rectal exam, no palpable masses, no bleeding. Patient is nontoxic appearing. Irritation may be due to diarrhea. Patient is educated on findings and instructed to follow up with GI if symptoms continue. Follow-up with PCP. Report back to ER with any new or worsening symptoms. Discussed return parameters and answered all questions. Patient conveyed verbal understanding and agreed to the plan. I discussed this case in detail with my attending Dr. Flores Undiagnosed new problem with uncertain prognosis? @ -No Drug Therapy requiring intensive monitoring for toxicity (Heparin, Nitro, Insulin, Cardizem)? @ -No Were any procedures done? @ -No Diagnosis/symptom? @ -Rectal pain Acute, or Chronic, or Acute on Chronic? @ -Acute Uncomplicated (without systemic symptoms) or Complicated (systemic symptoms)? @ -Uncomplicated Side effects of treatment? @ -No Exacerbation, Progression, or Severe Exacerbation? @ -No Poses a threat to life or bodily function? How? (Chest pain, [place], [place], pneumonia, PE, COPD, DKA, ARF, appy, cholecystitis, CVA, Diverticulitis, Homicidal, Suicidal, threat to staff... and all critical care pts) @ -No Disposition Clinical Impression: Rectal pain Disposition: HOME SELF-CARE Condition: Good Instructions (If sedation given, give patient instructions): Rectal Pain (ED) Additional Instructions: Follow-up with PCP and GI. Report back to ER if any new or worsening symptoms. Is patient prescribed a controlled substance at d/c from ED?: No Referrals: None,Stated [Primary Care Provider] - 1-2 days [facility] [NON-STAFF] - 1-2 days Yenifer Bangura MD [STAFF PHYSICIAN] - 1-2 days Time of Disposition: 22:45
[2023-10-26 22:54] VITALS: BP 169/86; PULSE 70; RESP 16; TEMP 98.6
== END 2023-10-26 23:04 | disposition home or self-care (01) ==
LOC: EC 21:28
DX: K62.89 Other specified diseases of anus and rectum (principal); E11.9 Type 2 diabetes mellitus without complications; I25.10 Atherosclerotic heart disease of native coronary artery without angina pectoris; F17.200 Nicotine dependence, unspecified, uncomplicated; F12.90 Cannabis use, unspecified, uncomplicated; Z79.82 Long term (current) use of aspirin; Z79.4 Long term (current) use of insulin; Z79.84 Long term (current) use of oral hypoglycemic drugs; Z91.041 Radiographic dye allergy status
CPT/HCPCS: 99283

== ENCOUNTER 2023-11-09 06:03 | Emergency (ER) | payer OTHER ==
[2023-11-09] MEDS ORDERED: SODIUM CHLORIDE 0.9% 1,000 ML IV STA (06:25)
--- NOTE | 2023-11-09 06:38 | ED ---
General Adult HPI - General Chief complaint: Syncope Stated complaint: Blacking out, swollen feet Time Seen by Provider: 11/09/23 06:13 Source: patient, RN notes reviewed Mode of arrival: ambulatory Limitations: no limitations - History of Present Illness Initial comments: This is a 48-year-old male who presents to the emergency department for concerns of "blacking out". States that when he goes about his day, whether he is sitting or standing, he feels like he becomes confused for a couple of seconds and then returns to normal. He does not lose consciousness or fall to the ground. He has had similar episodes in the past, most recently 3 weeks ago. He is unsure why these are occurring. Reports occasional headaches, but nothing worse or out of the ordinary for him. Denies any dizziness, chest pain, or shortness of breath. Additionally, states that when he was in the kitchen this morning, he looked down and noticed that his feet were swollen. This has happened several times in the past as well and states that he is on his feet a lot. Reports chronic pain in his feet due to peripheral neuropathy from diabetes. Additionally, patient is expressing suicidal ideations without a plan. - Related Data Previous Rx's Medication Instructions Recorded Aspirin 81 mg PO DAILY #60 tab 09/02/23 Atorvastatin [Lipitor] 80 mg PO HS #60 tab 09/02/23 Insulin Detemir (Levemir) [Levemir] 30 unit SQ HS #7 each 09/02/23 metFORMIN HCL ER [Glucophage XR] 500 mg PO DAILY #60 tab 09/02/23 sitaGLIPtin PHOSPHATE [Januvia] 25 mg PO DAILY #60 tab 09/02/23 Isosorbide Mononitrate ER [Imdur] 60 mg PO DAILY #30 tab 09/16/23 Losartan [Cozaar] 50 mg PO DAILY 30 Days #30 tab 09/16/23 Nicotine 14Mg/24Hr Patch [Habitrol] 1 patch TRANSDERM DAILY #30 patch 09/16/23 Nitroglycerin Sl Tabs [Nitrostat] 0.4 mg SUBLINGUAL Q5M PRN #20 tab 09/16/23 carvediloL [Coreg] 6.25 mg PO BID-W/MEALS 30 Days #60 09/16/23 tab Amoxic-Pot Clav 875-125Mg 1 tab PO Q12HR 7 Days #14 tab 10/01/23 [Augmentin 875-125] Allergies Allergy/AdvReac Type Severity Reaction Status Date / Time blue dye AdvReac Rapid Verified 11/09/23 06:11 Heart Rate Review of Systems ROS Statement: Those systems with pertinent positive or pertinent negative responses have been documented in the HPI. ROS Other: All systems not noted in ROS Statement are negative. Past Medical History Past Medical History: Coronary Artery Disease (CAD), Diabetes Mellitus Additional Past Medical History / Comment(s): pt type 1 diabetes Last Myocardial Infarction Date:: 2021 History of Any Multi-Drug Resistant Organisms: None Reported Past Surgical History: Orthopedic Surgery Additional Past Surgical History / Comment(s): Knee surgey 1993 Past Anesthesia/Blood Transfusion Reactions: No Reported Reaction Past Psychological History: Schizophrenia Smoking Status: Current every day smoker, Vaper Past Alcohol Use History: Occasional Past Drug Use History: Marijuana - Past Family History Father Family Medical History: Coronary Artery Disease (CAD) General Exam Limitations: no limitations General appearance: alert, in no apparent distress Head exam: Present: atraumatic, normocephalic, normal inspection Eye exam: Present: normal appearance, PERRL, EOMI. Absent: scleral icterus, conjunctival injection, periorbital swelling Respiratory exam: Present: normal lung sounds bilaterally. Absent: respiratory distress, wheezes, rales, rhonchi, stridor Cardiovascular Exam: Present: regular rate, normal rhythm, normal heart sounds. Absent: systolic murmur, diastolic murmur, rubs, gallop, clicks Extremities exam: Present: other (Mild swelling to the bilateral feet. No tenderness. Full ROM. 2+ DP and PT pulses.) Neurological exam: Present: alert, oriented X3, CN II-XII intact Psychiatric exam: Present: normal affect, normal mood Skin exam: Present: warm, dry, intact, normal color. Absent: rash Course Vital Signs 11/09/23 11/09/23 11/09/23 06:07 07:52 09:13 Temperature 98.8 F Pulse Rate 86 78 77 Respiratory 20 20 20 Rate Blood Pressure 177/100 175/105 160/93 O2 Sat by Pulse 99 99 93 L Oximetry 11/09/23 11/09/23 12:57 14:06 Temperature 98.7 F Pulse Rate 75 77 Respiratory 18 18 Rate Blood Pressure 140/90 110/66 O2 Sat by Pulse 99 98 Oximetry Medical Decision Making - Medical Decision Making This is a 48-year-old male who presents to the emergency department for concerns of blacking out and syncope. Was pt. sent in by a medical professional or institution? @ -No Did you speak to anyone other than the patient for history? @ -No Did you review nursing and triage notes? @ -Yes, and I agree, it is accurate with regards to the patient's symptoms. Were old charts reviewed? @ -No Differential Diagnosis? @ -Differential Syncope: Valvular disease, hypertrophic cardiomyopathy, pulmonary embolism, tamponade, tachycardia, bradycardia, [place], hypovolemia, hemorrhage, dissection, anemia, intracranial hemorrhage, seizure, hypoglycemia, carbon monoxide poisoning, this is not meant to be an all-inclusive list. EKG interpreted by me (3pts min.)? @ -EKG interpreted by me demonstrating the following: Sinus rhythm. Ventricular rate 72 BPM, DC interval 156 ms, QRS duration 93 ms, QTc 405 ms. X-rays interpreted by me (1pt min.)? @ -Not obtained CT interpreted by me (1pt min.)? @ -Not obtained U/S interpreted by me (1pt. min.)? @ -Not obtained What testing was considered but not performed? (CT, X-rays, U/S, labs)? Why? @ -None What meds were considered but not given? Why? @ -None Did you discuss the management of the patient with other professionals? @ -Yes, EPS, who advised that the patient does not meet criteria for inpatient psychiatric admission and can be discharged home. Did you reconcile home meds? @ -No Was smoking cessation discussed for >3mins.? @ -I discussed smoking cessation for greater than 3 minutes. The risk of smoking were discussed with the patient including but not limited to risks of cancer, stroke, coronary artery disease and COPD. Also discussed with patient were multiple methods of quitting smoking. Lastly we discussed the financial cost of smoking. Was critical care preformed (if so, how long)? @ -No Were there social determinants of health that impacted care today? How? (Homelessness, low income, unemployed, alcoholism, drug addiction, transportation, low edu. Level, literacy, decrease access to med. care, usp, rehab)? @ -No Was there de-escalation of care discussed even if they declined? (Discuss DNR or withdrawal of care, Hospice)? @ -No What co-morbidities impacted this encounter? (DM, HTN, Smoking, COPD, CAD, Cancer, CVA, Hep., AIDS, mental health diagnosis, sleep apnea, morbid obesity)? @ -DM, smoking Was patient admitted / discharged? @ -Discharged. Lab work obtained revealing an elevated glucose of 293 consistent with the patient's hx of DM. Lab work was otherwise unremarkable. Urinalysis negative for signs of infection. Patient notes suicidal ideations without a plan and would like to speak with EPS. EPS evaluated the patient and advised that he does not meet criteria for inpatient psychiatric admission and can be discharged home. He was given information for follow-up with [facility] and encouraged contact them for a follow-up appointment. He was also given information for local primary care providers. Discussed with patient that he needs a primary care provider for ongoing medical care, especially with regards to his diabetes. Also advised that the neuropathy will continue to get worse if his sugars are not well controlled. Patient discharged home in stable condition. Undiagnosed new problem with uncertain prognosis? @ -None Drug Therapy requiring intensive monitoring for toxicity (Heparin, Nitro, Insulin, Cardizem)? @ -None Were any procedures done? @ -None Diagnosis/symptom? @ -Dizziness, feet swelling Acute, or Chronic, or Acute on Chronic? @ -Acute Uncomplicated (without systemic symptoms) or Complicated (systemic symptoms)? @ -Uncomplicated Side effects of treatment? @ -None Exacerbation, Progression, or Severe Exacerbation] @ -Not applicable Poses a threat to life or bodily function? @ -No Return precautions reviewed in depth, the patient is instructed to return to the emergency department with any new, worsening, or concerning symptoms. Patient verbalized understanding. This case was discussed in detail with the attending ED physician, Dr. Bedolla. Presentation, findings, and treatment plan discussed in detail as well. - Lab Data Result diagrams: 11/09/23 06:42 11/09/23 06:42 Lab Results 11/09/23 11/09/23 11/09/23 Range/Units 06:42 06:42 06:42 WBC 7.9 (3.8-10.6) k/uL RBC 5.21 (4.30-5.90) m/uL Hgb 15.6 (13.0-17.5) gm/dL Hct 46.0 (39.0-53.0) % MCV 88.2 (80.0-100.0) fL MCH 29.9 (25.0-35.0) pg MCHC 33.9 (31.0-37.0) g/dL RDW 13.1 (11.5-15.5) % Plt Count 232 (150-450) k/uL MPV 9.2 Neutrophils % 45 % Lymphocytes % 43 % Monocytes % 6 % Eosinophils % 3 % Basophils % 1 % Neutrophils # 3.5 (1.3-7.7) k/uL Lymphocytes # 3.4 (1.0-4.8) k/uL Monocytes # 0.5 (0-1.0) k/uL Eosinophils # 0.3 (0-0.7) k/uL Basophils # 0.1 (0-0.2) k/uL Sodium 135 L (137-145) mmol/L Potassium 3.6 (3.5-5.1) mmol/L Chloride 103 (98-107) mmol/L Carbon Dioxide 26 (22-30) mmol/L Anion Gap 6 mmol/L BUN 17 (9-20) mg/dL Creatinine 1.14 (0.66-1.25) mg/dL Est GFR (CKD-EPI)AfAm 89 (>60 ml/min/1.73 sqM) Est GFR (CKD-EPI)NonAf 77 (>60 ml/min/1.73 sqM) Glucose 293 H (74-99) mg/dL Calcium 9.1 (8.4-10.2) mg/dL Magnesium 1.7 (1.6-2.3) mg/dL Total Bilirubin 0.9 (0.2-1.3) mg/dL AST 24 (17-59) U/L ALT 18 (4-49) U/L Alkaline Phosphatase 120 (38-126) U/L NT-Pro-B Natriuret Pep 459 pg/mL Total Protein 6.7 (6.3-8.2) g/dL Albumin 3.5 (3.5-5.0) g/dL TSH 1.600 (0.465-4.680) mIU/L Urine Color Colorless Urine Appearance Clear (Clear) Urine pH 6.0 (5.0-8.0) Ur Specific Temple 1.013 (1.001-1.035) Urine Protein 3+ H (Negative) Urine Glucose (UA) 4+ H (Negative) Urine Ketones Negative (Negative) Urine Blood Small H (Negative) Urine Nitrite Negative (Negative) Urine Bilirubin Negative (Negative) Urine Urobilinogen <2.0 (<2.0) mg/dL Ur Leukocyte Esterase Negative (Negative) Urine RBC 6 H (0-5) /hpf Urine WBC 1 (0-5) /hpf Ur Squamous Epith Cells <1 (0-4) /hpf Urine Bacteria Rare H (None) /hpf Hyaline Casts 1 (0-2) /lpf Urine Mucus Rare H (None) /hpf Serum Alcohol mg/dL 11/09/23 Range/Units 09:19 WBC (3.8-10.6) k/uL RBC (4.30-5.90) m/uL Hgb (13.0-17.5) gm/dL Hct (39.0-53.0) % MCV (80.0-100.0) fL MCH (25.0-35.0) pg MCHC (31.0-37.0) g/dL RDW (11.5-15.5) % Plt Count (150-450) k/uL MPV Neutrophils % % Lymphocytes % % Monocytes % % Eosinophils % % Basophils % % Neutrophils # (1.3-7.7) k/uL Lymphocytes # (1.0-4.8) k/uL Monocytes # (0-1.0) k/uL Eosinophils # (0-0.7) k/uL Basophils # (0-0.2) k/uL Sodium (137-145) mmol/L Potassium (3.5-5.1) mmol/L Chloride (98-107) mmol/L Carbon Dioxide (22-30) mmol/L Anion Gap mmol/L BUN (9-20) mg/dL Creatinine (0.66-1.25) mg/dL Est GFR (CKD-EPI)AfAm (>60 ml/min/1.73 sqM) Est GFR (CKD-EPI)NonAf (>60 ml/min/1.73 sqM) Glucose (74-99) mg/dL Calcium (8.4-10.2) mg/dL Magnesium (1.6-2.3) mg/dL Total Bilirubin (0.2-1.3) mg/dL AST (17-59) U/L ALT (4-49) U/L Alkaline Phosphatase (38-126) U/L NT-Pro-B Natriuret Pep pg/mL Total Protein (6.3-8.2) g/dL Albumin (3.5-5.0) g/dL TSH (0.465-4.680) mIU/L Urine Color Urine Appearance (Clear) Urine pH (5.0-8.0) Ur Specific Temple (1.001-1.035) Urine Protein (Negative) Urine Glucose (UA) (Negative) Urine Ketones (Negative) Urine Blood (Negative) Urine Nitrite (Negative) Urine Bilirubin (Negative) Urine Urobilinogen (<2.0) mg/dL Ur Leukocyte Esterase (Negative) Urine RBC (0-5) /hpf Urine WBC (0-5) /hpf Ur Squamous Epith Cells (0-4) /hpf Urine Bacteria (None) /hpf Hyaline Casts (0-2) /lpf Urine Mucus (None) /hpf Serum Alcohol <10 mg/dL Disposition Clinical Impression: Peripheral neuropathy, Dizziness, Nicotine dependence Disposition: HOME SELF-CARE Instructions (If sedation given, give patient instructions): Peripheral Neuropathy (ED) Additional Instructions: Return to the emergency department with any new, worsening, or concerning symptoms. Alternate with ibuprofen and Tylenol as needed for pain relief. Try to become established with a primary care provider using the list below for ongoing medical management. Is patient prescribed a controlled substance at d/c from ED?: No Referrals: None,Stated [Primary Care Provider] - 1-2 days Forms: Area PCPs Time of Disposition: 13:27
[2023-11-09 06:49] LABS: Basophils # (A) 0.1 k/uL (0-0.2); Basophils % (A) 1 %; Eosinophils # (A) 0.3 k/uL (0-0.7); Eosinophils % (A) 3 %; HGB 15.6 gm/dL (13.0-17.5); Lymphocytes # (A) 3.4 k/uL (1.0-4.8); Lymphocytes % (A) 43 %; MCH 29.9 pg (25.0-35.0); MCHC 33.9 g/dL (31.0-37.0); MCV 88.2 fL (80.0-100.0); Mean Platelet Volume 9.2; Monocytes # (A) 0.5 k/uL (0-1.0); Monocytes % (A) 6 %; Neutrophils # (A) 3.5 k/uL (1.3-7.7); Neutrophils % (A) 45 %; Platelet Count 232 k/uL (150-450); RBC 5.21 m/uL (4.30-5.90); RDW 13.1 % (11.5-15.5); WBC 7.9 k/uL (3.8-10.6)
[2023-11-09 07:03] LABS: ALT 18 U/L (4-49); AST 24 U/L (17-59); African American GFR (CKD) 89 (>60 ml/min/1.73 sqM); Albumin 3.5 g/dL (3.5-5.0); Alkaline Phosphatase 120 U/L (38-126); Anion Gap 6 mmol/L; Blood Urea Nitrogen 17 mg/dL (9-20); Calcium 9.1 mg/dL (8.4-10.2); Carbon Dioxide 26 mmol/L (22-30); Chloride 103 mmol/L (98-107); Glucose 293 mg/dL (74-99); Magnesium 1.7 mg/dL (1.6-2.3); Non-African American GFR(CKD) 77 (>60 ml/min/1.73 sqM); Potassium 3.6 mmol/L (3.5-5.1); Sodium 135 mmol/L (137-145); Total Bilirubin 0.9 mg/dL (0.2-1.3); Total Protein 6.7 g/dL (6.3-8.2)
[2023-11-09 07:12] LABS: NT-Pro-B-Type Natriuretic Pept 459 pg/mL
[2023-11-09 08:25] LABS: Appearance,Urine Clear (Clear); Bacteria,Urine Rare /hpf; Bilirubin,Urine Negative (Negative); Blood,Urine Small (Negative); Color,Urine Colorless; Glucose,Urine (UA) 4+ (Negative); Hyaline Casts,Urine 1 /lpf (0-2); Ketones,Urine Negative (Negative); Leukocyte Esterase,Urine Negative (Negative); Mucus,Urine Rare /hpf; Nitrite,Urine Negative (Negative); Protein,Urine 3+ (Negative); RBC,Urine 6 /hpf (0-5); Specific Gravity,Urine 1.013 (1.001-1.035); Squamous Epithelial Cell,Urine <1 /hpf (0-4); Urobilinogen,Urine <2.0 mg/dL (<2.0); WBC,Urine 1 /hpf (0-5)
[2023-11-09 13:04] VITALS: RESP 18
[2023-11-09] MEDS ORDERED: KETOROLAC 15 MG/ML 1 ML VIAL IVP STA (13:24)
[2023-11-09] MEDS ORDERED: IBUPROFEN 600 MG STARTER PACK 4 TAB BTL PO STA (13:24)
[2023-11-09 14:37] VITALS: BP 110/66; PULSE 77; TEMP 98.7
== END 2023-11-09 14:10 | disposition home or self-care (01) ==
LOC: EC 06:03
DX: E11.42 Type 2 diabetes mellitus with diabetic polyneuropathy (principal); R42 Dizziness and giddiness; G62.9 Polyneuropathy, unspecified; F17.290 Nicotine dependence, other tobacco product, uncomplicated; I25.10 Atherosclerotic heart disease of native coronary artery without angina pectoris; F12.90 Cannabis use, unspecified, uncomplicated; Z91.041 Radiographic dye allergy status
CPT/HCPCS: 36415; 93005; 83880; 80053; 84443; 83735; 85025; 81001; 99284; 96374; G0480; J1885; 80320

== ENCOUNTER 2023-11-10 14:05 | Inpatient (IN) | payer OTHER ==
--- NOTE | 2023-11-10 15:32 | ED ---
General Adult HPI - General Source: patient, RN notes reviewed Mode of arrival: ambulatory Limitations: no limitations <Chelo Hu - Last Filed: 11/10/23 15:30> - General Source: patient, RN notes reviewed, old records reviewed <Hao Marx - Last Filed: 11/10/23 20:53> - General Chief complaint: Chest Pain Stated complaint: Chest Pain Time Seen by Provider: 11/10/23 15:30 - History of Present Illness Initial comments: 48-year-old male presents emergency department for evaluation of left-sided chest pain. He states that this started today but is unable to give a time. Denies cardiac history. (Chelo Hu) Patient is a 48-year-old female presents to the department for chest pain. Has a history of intermittent chest pain, diabetes. Also history of CAD. Recently headache cardiac cath back in August 2023 which revealed one-vessel CAD, of the PDA. Medical therapy approximate that time. Patient currently is pain- free. States he last had pain approximately an hour to an hour and a half ago. Also has intermittent lower abdominal pain but no current pain at this time. Presents for further evaluation. Describes the pain as left-sided with no radiation. Describes it as a pressure sensation. I evaluated the patient after he was placed in a room. Workup service a quick note. (Hao Marx) - Related Data Home Medications Medication Instructions Recorded Confirmed carvediloL [Coreg] 3.125 mg PO BID 11/10/23 11/10/23 Previous Rx's Medication Instructions Recorded Aspirin 81 mg PO DAILY #60 tab 09/02/23 Insulin Detemir (Levemir) [Levemir] 30 unit SQ HS #7 each 09/02/23 metFORMIN HCL ER [Glucophage XR] 500 mg PO DAILY #60 tab 09/02/23 sitaGLIPtin PHOSPHATE [Januvia] 25 mg PO DAILY #60 tab 09/02/23 Losartan [Cozaar] 50 mg PO DAILY 30 Days #30 tab 09/16/23 Allergies Allergy/AdvReac Type Severity Reaction Status Date / Time blue dye AdvReac Rapid Verified 11/10/23 18:07 Heart Rate Review of Systems ROS Other: All systems not noted in ROS Statement are negative. <Chelo Hu - Last Filed: 11/10/23 15:30> ROS Other: All systems not noted in ROS Statement are negative. <Hao Marx - Last Filed: 11/10/23 20:53> ROS Statement: Those systems with pertinent positive or pertinent negative responses have been documented in the HPI. Review of Systems: CONST: Denies fever EYES: Denies blurry vision ENT: Denies nasal congestion C/V: Denies current Chest pain RESP: Denies shortness of breath GI: Denies abdominal pain : Denies dysuria SKIN: Denies rash. MSK: Denies joint pain. NEURO: Denies headache (Hao Marx) Past Medical History Past Medical History: Coronary Artery Disease (CAD), Diabetes Mellitus Additional Past Medical History / Comment(s): pt type 1 diabetes Last Myocardial Infarction Date:: 2021 History of Any Multi-Drug Resistant Organisms: None Reported Past Surgical History: Orthopedic Surgery Additional Past Surgical History / Comment(s): Knee surgey 1993 Past Anesthesia/Blood Transfusion Reactions: No Reported Reaction Past Psychological History: Schizophrenia Smoking Status: Current every day smoker, Vaper Past Alcohol Use History: Occasional Past Drug Use History: Marijuana - Past Family History Father Family Medical History: Coronary Artery Disease (CAD) <Chelo Hu - Last Filed: 11/10/23 15:30> General Exam Limitations: no limitations <Chelo Hu - Last Filed: 11/10/23 15:30> <Hao Marx - Last Filed: 11/10/23 20:53> - General Exam Comments Initial Comments: Initial physical examVisual Physical Exam Vital signs reviewed General: Well-appearing, nontoxic, no acute distress. Head: Normocephalic, atraumatic Eyes: PERRLA, EOMI ENT: Airway patent Chest: Nonlabored breathing Skin: No visual rash, normal skin tone Neuro: Alert and oriented 3 Musculoskeletal: No gross abnormalities (Chelo Hu) General: Appears in no acute distress. HEAD: Normal with no signs of head trauma. EYES: PERRLA, EOMI, conjunctiva normal, no discharge. ENT: Hearing grossly intact, normal oropharynx. RESPIRATORY: Clear breath sounds bilaterally. No wheezes, rales, or rhonchi. C/V: Regular rate and rhythm. S1 and S2 auscultated, no edema, peripheral pulses 2+ and intact throughout ABD: Abd is soft, nontender, nondistended EXT: Normal range of motion, no obvious deformity SKIN: No rashes or lesions observed on exposed skin. NEURO: Alert and oriented x 4. (Hao Marx) Course Vital Signs 11/10/23 11/10/23 14:12 16:07 Temperature 97.9 F Pulse Rate 89 71 Respiratory 18 16 Rate Blood Pressure 153/88 183/116 O2 Sat by Pulse 100 99 Oximetry Medical Decision Making <Chelo Hu - Last Filed: 11/10/23 15:30> - Lab Data Result diagrams: 11/10/23 15:58 11/10/23 17:27 - EKG Data -: EKG Interpreted by Me <Hao Marx - Last Filed: 11/10/23 20:53> - Medical Decision Making Quick note preformed by Chelo Hu PA-C (Chelo Hu) Was pt. sent in by a medical professional or institution ([facility], THERMOPLASTIC TECHNICIAN, urgent care, hospital, or longterm...) When possible be specific @ -No Did you speak to anyone other than the patient for history (EMS, parent, family, police, friend...)? What history was obtained from this source @ -No Did you review nursing and triage notes (agree or disagree)? Why? @ -I reviewed and agree with nursing and triage notes Were old charts reviewed (outside hosp., previous admission, EMS record, old EKG, old radiological studies, urgent care reports/EKG's, longterm records)? Report findings @ -Old charts reviewed Differential Diagnosis (chest pain, altered mental status, abdominal pain women, abdominal pain men, vaginal bleeding, weakness, fever, dyspnea, syncope, headache, dizziness, GI bleed, back pain, seizure, CVA, palpatations, mental health, musculoskeletal)? @ -Differential Chest Pain: Stable Angina, Unstable Angina, STEMI, NSTEMI Aortic Dissection, Pneumothorax, Musculoskeletal, Esophageal Spasm GERD, Cholecystitis, Pancreatitis, Zoster, this is not meant to be an all-inclusive list. EKG interpreted by me (3pts min.). @ -As above X-rays interpreted by me (1pt min.). @ -Chest x-ray reveals no obvious acute cardiopulmonary process. CT interpreted by me (1pt min.). @ -None done U/S interpreted by me (1pt. min.). @ -None done What testing was considered but not performed or refused? (CT, X-rays, U/S, labs)? Why? @ -None What meds were considered but not given or refused? Why? @ -None Did you discuss the management of the patient with other professionals (professionals i.e. , PA, THERMOPLASTIC TECHNICIAN, lab, RT, psych nurse, manager social, orthotic technician, teacher, child support case officer, bilingual patient support caseworker)? Give summary @ -Patient will be admitted city call Dr. Tolbert who accepted the patient. Was smoking cessation discussed for >3mins.? @ -No Was critical care preformed (if so, how long)? @ -Yes, 36 minutes. Were there social determinants of health that impacted care today? How? (Homelessness, low income, unemployed, alcoholism, drug addiction, transportation, low edu. Level, literacy, decrease access to med. care, penitentiary, rehab)? @ -No Was there de-escalation of care discussed even if they declined (Discuss DNR or withdrawal of care, Hospice)? DNR status @ -No What co-morbidities impacted this encounter? (DM, HTN, Smoking, COPD, CAD, Ca ncer, CVA, ARF, Chemo, Hep., AIDS, mental health diagnosis, sleep apnea, morbid obesity)? @ -CAD Was patient admitted / discharged? Hospital course, mention meds given and route, prescriptions, significant lab abnormalities, going to OR and other pertinent info. @ -Patient presents originally as a quick note. Presents with chest pain that is currently resolved. Described as left-sided. Has been ongoing for the last few days. Does have a history of CAD. We will obtain a cardiopulmonary workup. He'll be given a dose of aspirin as well. Patient was in agreement this plan. Vital signs within acceptable limits. EKG shows no signs of acute ischemia. Patient's laboratory studies are unremarkable initially for CBC and coags. Resolving delay in obtaining CMP and troponin due to bloodwork being lost by lab. Eventually we repeated these labs and patient did have an elevated troponin of 0.038. Patient does have a history of slightly elevated troponins in this range however typically is indeterminate or undetectable. On reevaluation, patient remains asymptomatic. However due to the elevated troponin with no EKG changes I will admit him as a NSTEMI. Patient started on a heparin drip. He already received aspirin at this time. I instructed him to inform us if his chest pain returns. He was in agreement this plan. Patient will be admitted city call Dr. Tolbert who accepted the patient. Cardiology consulted. We will trend the troponin. Undiagnosed new problem with uncertain prognosis? @ -No Drug Therapy requiring intensive monitoring for toxicity (Heparin, Nitro, Insulin, Cardizem)? @ -Heparin Were any procedures done? @ -No Diagnosis/symptom? @ -NSTEMI Acute, or Chronic, or Acute on Chronic? @ -Acute Uncomplicated (without systemic symptoms) or Complicated (systemic symptoms)? @ -Complicated Side effects of treatment? @ -No Exacerbation, Progression, or Severe Exacerbation? @ -No Poses a threat to life or bodily function? How? (Chest pain, [place], [place], pneumonia, PE, COPD, DKA, ARF, appy, cholecystitis, CVA, Diverticulitis, Homicidal, Suicidal, threat to staff... and all critical care pts) @ -Yes (Hao Marx) - Lab Data Lab Results 11/10/23 11/10/23 11/10/23 Range/Units 15:58 15:58 16:08 WBC 6.8 (3.8-10.6) k/uL RBC 5.42 (4.30-5.90) m/uL Hgb 16.3 (13.0-17.5) gm/dL Hct 47.4 (39.0-53.0) % MCV 87.6 (80.0-100.0) fL MCH 30.1 (25.0-35.0) pg MCHC 34.4 (31.0-37.0) g/dL RDW 13.3 (11.5-15.5) % Plt Count 251 (150-450) k/uL MPV 9.4 Neutrophils % 59 % Lymphocytes % 29 % Monocytes % 7 % Eosinophils % 3 % Basophils % 1 % Neutrophils # 4.0 (1.3-7.7) k/uL Lymphocytes # 2.0 (1.0-4.8) k/uL Monocytes # 0.5 (0-1.0) k/uL Eosinophils # 0.2 (0-0.7) k/uL Basophils # 0.0 (0-0.2) k/uL PT 10.5 (10.0-12.5) sec INR 1.0 (<1.2) APTT 29.3 (22.0-30.0) sec Sodium (137-145) mmol/L Potassium (3.5-5.1) mmol/L Chloride (98-107) mmol/L Carbon Dioxide (22-30) mmol/L Anion Gap mmol/L BUN (9-20) mg/dL Creatinine (0.66-1.25) mg/dL Est GFR (CKD-EPI)AfAm (>60 ml/min/1.73 sqM) Est GFR (CKD-EPI)NonAf (>60 ml/min/1.73 sqM) Glucose (74-99) mg/dL Calcium (8.4-10.2) mg/dL Magnesium (1.6-2.3) mg/dL Total Bilirubin (0.2-1.3) mg/dL AST (17-59) U/L ALT (4-49) U/L Alkaline Phosphatase (38-126) U/L Troponin I (0.000-0.034) ng/mL Total Protein (6.3-8.2) g/dL Albumin (3.5-5.0) g/dL Urine Color Yellow Urine Appearance Clear (Clear) Urine pH 6.0 (5.0-8.0) Ur Specific [place] 1.020 (1.001-1.035) Urine Protein 3+ H (Negative) Urine Glucose (UA) 4+ H (Negative) Urine Ketones 1+ H (Negative) Urine Blood Small H (Negative) Urine Nitrite Negative (Negative) Urine Bilirubin Negative (Negative) Urine Urobilinogen <2.0 (<2.0) mg/dL Ur Leukocyte Esterase Negative (Negative) Urine RBC 11 H (0-5) /hpf Urine WBC 2 (0-5) /hpf Ur Squamous Epith Cells <1 (0-4) /hpf Hyaline Casts 57 H (0-2) /lpf Urine Mucus Rare H (None) /hpf Influenza Type A (PCR) (Not Detectd) Influenza Type B (PCR) (Not Detectd) RSV (PCR) (Not Detectd) SARS-CoV-2 (PCR) (Not Detectd) 11/10/23 11/10/23 11/10/23 Range/Units 16:08 17:27 17:27 WBC (3.8-10.6) k/uL RBC (4.30-5.90) m/uL Hgb (13.0-17.5) gm/dL Hct (39.0-53.0) % MCV (80.0-100.0) fL MCH (25.0-35.0) pg MCHC (31.0-37.0) g/dL RDW (11.5-15.5) % Plt Count (150-450) k/uL MPV Neutrophils % % Lymphocytes % % Monocytes % % Eosinophils % % Basophils % % Neutrophils # (1.3-7.7) k/uL Lymphocytes # (1.0-4.8) k/uL Monocytes # (0-1.0) k/uL Eosinophils # (0-0.7) k/uL Basophils # (0-0.2) k/uL PT (10.0-12.5) sec INR (<1.2) APTT (22.0-30.0) sec Sodium 135 L (137-145) mmol/L Potassium 3.6 (3.5-5.1) mmol/L Chloride 104 (98-107) mmol/L Carbon Dioxide 25 (22-30) mmol/L Anion Gap 6 mmol/L BUN 12 (9-20) mg/dL Creatinine 0.86 (0.66-1.25) mg/dL Est GFR (CKD-EPI)AfAm >90 (>60 ml/min/1.73 sqM) Est GFR (CKD-EPI)NonAf >90 (>60 ml/min/1.73 sqM) Glucose 230 H (74-99) mg/dL Calcium 8.6 (8.4-10.2) mg/dL Magnesium 1.7 (1.6-2.3) mg/dL Total Bilirubin 1.0 (0.2-1.3) mg/dL AST 31 (17-59) U/L ALT 18 (4-49) U/L Alkaline Phosphatase 100 (38-126) U/L Troponin I 0.038 H* (0.000-0.034) ng/mL Total Protein 6.5 (6.3-8.2) g/dL Albumin 3.3 L (3.5-5.0) g/dL Urine Color Urine Appearance (Clear) Urine pH (5.0-8.0) Ur Specific [place] (1.001-1.035) Urine Protein (Negative) Urine Glucose (UA) (Negative) Urine Ketones (Negative) Urine Blood (Negative) Urine Nitrite (Negative) Urine Bilirubin (Negative) Urine Urobilinogen (<2.0) mg/dL Ur Leukocyte Esterase (Negative) Urine RBC (0-5) /hpf Urine WBC (0-5) /hpf Ur Squamous Epith Cells (0-4) /hpf Hyaline Casts (0-2) /lpf Urine Mucus (None) /hpf Influenza Type A (PCR) Not Detected (Not Detectd) Influenza Type B (PCR) Not Detected (Not Detectd) RSV (PCR) Not Detected (Not Detectd) SARS-CoV-2 (PCR) Not Detected (Not Detectd) - EKG Data EKG Comments: 12-lead Electrocardiogram Interpretation Note EKG was reviewed and interpreted by myself. 12-lead ECG performed at 1558 is interpreted by me as revealing normal sinus rhythm at a rate of 70 beats per minute. [place] is normal. NH interval is 155 ms, QRS duration is 96 ms, QTc is 417 ms.. There were no ST or T wave abnormalities to suggest myocardial ische juni or injury. R wave progression across the precordium was satisfactory. By my interpretation this EKG is non-diagnostic for acute ischemia. (Hao Marx) Critical Care Time Critical Care Time: Yes Total Critical Care Time: 36 <Hao Marx - Last Filed: 11/10/23 20:53> Disposition <Chelo Hu - Last Filed: 11/10/23 15:30> Time of Disposition: 19:16 <Hao Marx - Last Filed: 11/10/23 20:53> Clinical Impression: NSTEMI (non-ST elevated myocardial infarction) Disposition: ADMITTED IP TO THIS HOSP Condition: Stable
--- NOTE | 2023-11-10 15:44 | XR ---
EXAMINATION TYPE: XR chest 2V DATE OF EXAM: 11/10/2023 COMPARISON: 10/10/2023 INDICATION: Chest pain TECHNIQUE: Frontal and lateral views of the chest are obtained. FINDINGS: The heart size is normal. The pulmonary vasculature is normal. The lungs are clear. IMPRESSION: 1. No acute pulmonary process.
[2023-11-10] MEDS ORDERED: MORPHINE SULFATE 2 MG/ML SYRINGE IVP STA (16:03)
[2023-11-10 16:41] LABS: Basophils % (A) 1 %; Eosinophils # (A) 0.2 k/uL (0-0.7); Eosinophils % (A) 3 %; HCT 47.4 % (39.0-53.0); HGB 16.3 gm/dL (13.0-17.5); Lymphocytes % (A) 29 %; MCH 30.1 pg (25.0-35.0); MCHC 34.4 g/dL (31.0-37.0); MCV 87.6 fL (80.0-100.0); Mean Platelet Volume 9.4; Monocytes # (A) 0.5 k/uL (0-1.0); Monocytes % (A) 7 %; Neutrophils % (A) 59 %; Platelet Count 251 k/uL (150-450); RBC 5.42 m/uL (4.30-5.90); RDW 13.3 % (11.5-15.5); WBC 6.8 k/uL (3.8-10.6)
[2023-11-10 17:10] LABS: Partial Thromboplastin Time 29.3 sec (22.0-30.0); Prothrombin Time 10.5 sec (10.0-12.5)
[2023-11-10 18:32] LABS: ALT 18 U/L (4-49); AST 31 U/L (17-59); African American GFR (CKD) >90 (>60 ml/min/1.73 sqM); Albumin 3.3 g/dL (3.5-5.0); Alkaline Phosphatase 100 U/L (38-126); Anion Gap 6 mmol/L; Blood Urea Nitrogen 12 mg/dL (9-20); Calcium 8.6 mg/dL (8.4-10.2); Carbon Dioxide 25 mmol/L (22-30); Chloride 104 mmol/L (98-107); Glucose 230 mg/dL (74-99); Magnesium 1.7 mg/dL (1.6-2.3); Non-African American GFR(CKD) >90 (>60 ml/min/1.73 sqM); Sodium 135 mmol/L (137-145); Total Protein 6.5 g/dL (6.3-8.2)
[2023-11-10 18:42] LABS: Potassium 3.6 mmol/L (3.5-5.1)
[2023-11-10] MEDS ORDERED: ASPIRIN 81 MG PO STA (19:14)
[2023-11-10] MEDS ORDERED: HEPARIN SODIUM 1,000 UN/ML (10ML VL) IV ONE (19:16)
[2023-11-10] MEDS ORDERED: HEPARIN SODIUM 1,000 UN/ML (10ML VL) IV PRN (19:16)
[2023-11-10] MEDS: HEPARIN SOD,PORK IN 0.45% NACL 25,000 UNIT in 0.45% NACL 1 250ML.BAG IV SCH (19:35)
[2023-11-10] MEDS ORDERED: NALOXONE 0.4 MG/ML 1 ML VIAL IV PRN (19:39)
[2023-11-10] MEDS ORDERED: DEXTROSE 50% SYRINGE 50 ML IVP PRN ×2 (19:44)
[2023-11-10 19:59] LABS: Appearance,Urine Clear (Clear); Bilirubin,Urine Negative (Negative); Blood,Urine Small (Negative); Color,Urine Yellow; Glucose,Urine (UA) 4+ (Negative); Hyaline Casts,Urine 57 /lpf (0-2); Ketones,Urine 1+ (Negative); Leukocyte Esterase,Urine Negative (Negative); Mucus,Urine Rare /hpf; Nitrite,Urine Negative (Negative); Protein,Urine 3+ (Negative); RBC,Urine 11 /hpf (0-5); Squamous Epithelial Cell,Urine <1 /hpf (0-4); Urobilinogen,Urine <2.0 mg/dL (<2.0); WBC,Urine 2 /hpf (0-5)
[2023-11-10] MEDS: carvediloL 3.125 MG TAB PO SCH (20:36)
[2023-11-11] MEDS ORDERED: NITROGLYCERIN SL TABS 0.4 MG TAB SUBLINGUAL PRN (02:58)
--- NOTE | 2023-11-11 03:01 | P.HPIM ---
History of Present Illness H&P Date: 11/10/23 Chief Complaint: Chest pain 48-year-old male coronary artery disease, diabetes mellitus Patient coming in for evaluation of recurrent chest pain he reports that he has been having episodes of recurrent chest pain over the past couple months however today while resting doing nothing all of a sudden he started experiencing left- sided chest pain he describes it as sharp pain 4 out of 10 in severity lasted for a minute and a half and went away on its own he took nothing for it denies any associated shortness of breath nausea vomiting dizziness lightheadedness or profuse sweating however due to recurrent nature of these chest pains he decided to come in today for evaluation. Patient denies any recent travel or hospital stay denies any history of blood clots. Denies any fevers chills coughing nausea vomiting sore throat abdominal pain GI bleeding changes in bowel or urinary habits Patient also reporting some suprapubic abdominal discomfort again denies any diarrhea denies any hematuria denies any dysuria Patient does admit to tobacco smoking denies any illicit drugs or heavy alcohol Patient had left heart cath done 09/2023 cardiology evaluated the patient and decided for maximal medical therapy at that time review of systems Pertinent positives as noted in HPI. All other systems were reviewed and are negative on exam Constitutional: No acute distress, conversant, pleasant Eyes: Anicteric sclerae, moist conjunctiva, Pupils equal round reactive to light ENMT: NC/AT Oropharynx clear, no erythema, or exudates Neck: Supple, no masses, or JVD No carotid bruits No thyromegaly Lungs: Clear to auscultation Clear to percussion Normal respiratory effort, no accessory muscle use Cardiovascular: Heart regular in rate and rhythm, No murmurs, gallops, or rubs No peripheral edema Abdominal: Soft Nontender, no guarding, rebound or rigidity Abdomen moving with respiration Normoactive bowel sounds No hepatomegaly, No splenomegaly No palpable mass No abdominal wall hernia noted Extremities: No digital cyanosis No clubbing Pedal pulses intact and symmetrical Radial pulses intact and symmetrical No calf tenderness Psychiatric: Alert and oriented to person, place and time Appropriate affect fair judgement Neuro Muscles Strength 5/5 in all 4 extremities Sensation to light touch grossly present throughout Cranial nerves II-XII grossly intact Lymphatics: no palpable cervical or supraclavicular lymph nodes Past Medical History Past Medical History: Coronary Artery Disease (CAD), Diabetes Mellitus Additional Past Medical History / Comment(s): pt type 1 diabetes Last Myocardial Infarction Date:: 2021 History of Any Multi-Drug Resistant Organisms: None Reported Past Surgical History: Orthopedic Surgery Additional Past Surgical History / Comment(s): Knee surgey 1993 Past Anesthesia/Blood Transfusion Reactions: No Reported Reaction Past Psychological History: Schizophrenia Smoking Status: Current every day smoker, Vaper Past Alcohol Use History: Occasional Past Drug Use History: Marijuana - Past Family History Father Family Medical History: Coronary Artery Disease (CAD) Medications and Allergies Home Medications Medication Instructions Recorded Confirmed Type Aspirin 81 mg PO DAILY #60 tab 09/02/23 11/10/23 Rx Insulin Detemir (Levemir) [Levemir] 30 unit SQ HS #7 each 09/02/23 11/10/23 Rx metFORMIN HCL ER [Glucophage XR] 500 mg PO DAILY #60 tab 09/02/23 11/10/23 Rx sitaGLIPtin PHOSPHATE [Januvia] 25 mg PO DAILY #60 tab 09/02/23 11/10/23 Rx Losartan [Cozaar] 50 mg PO DAILY 30 Days #30 tab 09/16/23 11/10/23 Rx carvediloL [Coreg] 3.125 mg PO BID 11/10/23 11/10/23 History Allergies Allergy/AdvReac Type Severity Reaction Status Date / Time blue dye AdvReac Rapid Verified 11/10/23 18:07 Heart Rate Physical Exam Vitals: Vital Signs Temp Pulse Resp BP Pulse Ox 11/10/23 16:07 71 16 183/116 99 11/10/23 14:12 97.9 F 89 18 153/88 100 Intake and Output 11/10/23 11/10/23 11/10/23 06:59 14:59 22:59 Other: Weight 92.986 kg Results CBC & Chem 7: 11/10/23 15:58 11/10/23 17:27 Labs: Abnormal Lab Results - Last 24 Hours (Table) 11/10/23 11/10/23 Range/Units 17:27 17:27 Sodium 135 L (137-145) mmol/L Glucose 230 H (74-99) mg/dL Troponin I 0.038 H* (0.000-0.034) ng/mL Albumin 3.3 L (3.5-5.0) g/dL Assessment and Plan Assessment: 48-year-old male with diabetes mellitus CAD coming in for recurrent episodes of chest pain I discussed case with ED doctor and accepted the admission for NSTEMI with anticipated length of stay more than 2 midnights NSTEMI Slightly elevated troponin 0.038, continue to trend Currently chest pain-free EKG no acute ST changes Patient had a late recent left heart cath done August 2023 cardiology recommended maximal medical management with close follow-up Check echocardiogram Aspirin, statin, Nitro as needed for pain Patient was started on heparin drip in the ED, continue Cardiology consult Blood work showing Viral respiratory panel negative for COVID influenza and ASV Hemoglobin 16.3, white count 6.8 Sodium 135 potassium 3.6 BUN 12 creatinine 0.8 Hypertensive urgency Poorly controlled blood pressure Continue with losartan and Coreg As needed clonidine 0.2 mg every 8 hours for systolic blood pressure more than 180 Diabetes mellitus Insulin sliding scale Full code DVT prophylaxis currently on heparin drip for ACS protocol
[2023-11-11] MEDS ORDERED: cloNIDine HCL 0.2 MG TAB PO PRN (04:25)
[2023-11-11 05:58] LABS: Glucose,Whole Blood 253 mg/dL (70-110)
[2023-11-11] MEDS: carvediloL 3.125 MG TAB PO SCH (06:35)
[2023-11-11] MEDS ORDERED: INSULIN ASPART (NovoLOG) 100 UNIT/ML VIAL SQ SCH (07:30)
--- NOTE | 2023-11-11 07:56 | P.CRDCN ---
History of Present Illness Consult date: 11/11/23 History of present illness: History of Present Illness: The patient is a 48-year-old male with a known history of hypertension, hyperlipidemia, diabetes, chronic tobacco use and a history of CAD. He has been followed by Dr. Bangura in the past. He underwent cardiac catheterization in August 2023 and was found to have focal stenosis in the small PDA with no evidence of significant obstructive disease in the left system with mid LAD bridging. His images were reviewed at that time by Dr. Amador and was followed to the PDA was too small to undergo PCI. The patient is not always compliant with his medications. Who presented with an episode of chest discomfort yesterday that lasted for 1 minute. His symptoms were not associated with any dyspnea, dizziness or palpitations. He is pain-free at this time. His EKG showed no acute ST segment changes. His first troponin was 0.038 and subsequently 0.016 and 0.018. The patient LV systolic function was normal in the past with no evidence of segmental wall motion abnormality. He denies any PND, orthopnea or peripheral edema. He consumes alcohol occasionally and smokes marijuana but not on a daily basis according to him. Medications: Coreg 3.125 mg twice a day, metformin, losartan 50 mg daily, insulin, aspirin, Januvia. Compliance with medication is unclear Review of Systems: Respiratory: He has some dyspnea on exertion and chronic tobacco use GI: No nausea or vomiting . No history of peptic ulcer disease. No recent GI bleed. : No hematuria or dysuria. Nervous System: No stroke or seizure. Physical Examination: 48-year-old male, alert oriented no apparent distress,Blood pressure 159/84, was in the 170s earlier, Heart rate 70 Head: Normocephalic. Eyes: Sclerae nonicteric. Neck: Good carotid upstroke, no bruit, no jugular venous distention. Lungs: Clear to auscultation. Heart: Regular rate and rhythm, S1-S2, no S3, no rub. No murmur. Abdomen: Soft nontender, positive bowel sounds no organomegaly. Extremities: No edema, intact distal pulses. Labs: Hemoglobin 16.3, potassium 3.6, BUN 12, creatinine 0.86. Chest x-ray with no acute infiltrate EKG: EKG sinus mechanism, LVH with nonspecific ST-T wave changes Impression: 1. Chest discomfort of unclear etiology with 1 minimally elevated sample of troponin subsequently normal in a patient with known history of CAD 2. Chronic tobacco use 3. Hypertension 4. Hyperlipidemia 5. History of diabetes 6. Noncompliance Plan: 1. Continue IV heparin until the morning 2. No indications for repeat coronary angiography 3. Add oral nitrate, clopidogrel 4. Increase the dose of beta-lauren and losartan 5. Smoking cessation 6. Depending on his progress further recommendations will be made, thank you for this consult we will follow with you. Past Medical History Past Medical History: Coronary Artery Disease (CAD), Diabetes Mellitus Additional Past Medical History / Comment(s): pt type 1 diabetes Last Myocardial Infarction Date:: 2021 History of Any Multi-Drug Resistant Organisms: None Reported Past Surgical History: Orthopedic Surgery Additional Past Surgical History / Comment(s): Knee surgey 1993 Past Anesthesia/Blood Transfusion Reactions: No Reported Reaction Past Psychological History: Schizophrenia Smoking Status: Current every day smoker, Vaper Past Alcohol Use History: Occasional Past Drug Use History: Marijuana - Past Family History Father Family Medical History: Coronary Artery Disease (CAD) Medications and Allergies Home Medications Medication Instructions Recorded Confirmed Type Aspirin 81 mg PO DAILY #60 tab 09/02/23 11/10/23 Rx Insulin Detemir (Levemir) [Levemir] 30 unit SQ HS #7 each 09/02/23 11/10/23 Rx metFORMIN HCL ER [Glucophage XR] 500 mg PO DAILY #60 tab 09/02/23 11/10/23 Rx sitaGLIPtin PHOSPHATE [Januvia] 25 mg PO DAILY #60 tab 09/02/23 11/10/23 Rx Losartan [Cozaar] 50 mg PO DAILY 30 Days #30 tab 09/16/23 11/10/23 Rx carvediloL [Coreg] 3.125 mg PO BID 11/10/23 11/10/23 History Allergies Allergy/AdvReac Type Severity Reaction Status Date / Time blue dye AdvReac Rapid Verified 11/10/23 18:07 Heart Rate Physical Exam Vitals: Vital Signs Temp Pulse Pulse Resp BP BP Pulse Ox 11/11/23 03:40 97.9 F 74 16 159/84 97 11/10/23 23:23 98.1 F 76 16 174/92 100 11/10/23 22:49 98.1 F 76 16 176/98 100 11/10/23 22:32 81 18 170/112 100 11/10/23 21:00 73 18 174/99 99 11/10/23 20:00 89 18 165/107 99 11/10/23 16:07 71 16 183/116 99 11/10/23 14:12 97.9 F 89 18 153/88 100 Intake and Output 11/10/23 11/11/23 11/11/23 22:59 06:59 14:59 Other: Voiding Method Toilet Urinal # Voids 1 Weight 92.986 kg Results 11/10/23 15:58 11/10/23 17:27 Cardiac Enzymes 11/10/23 11/10/23 11/10/23 Range/Units 17:27 17:27 21:01 AST 31 (17-59) U/L Troponin I 0.038 H* 0.016 (0.000-0.034) ng/mL 11/11/23 Range/Units 00:40 AST (17-59) U/L Troponin I 0.018 (0.000-0.034) ng/mL Coagulation 11/10/23 11/11/23 Range/Units 15:58 00:40 PT 10.5 (10.0-12.5) sec APTT 29.3 44.6 H (22.0-30.0) sec CBC 11/10/23 Range/Units 15:58 WBC 6.8 (3.8-10.6) k/uL RBC 5.42 (4.30-5.90) m/uL Hgb 16.3 (13.0-17.5) gm/dL Hct 47.4 (39.0-53.0) % Plt Count 251 (150-450) k/uL Comprehensive Metabolic Panel 11/10/23 Range/Units 17:27 Sodium 135 L (137-145) mmol/L Potassium 3.6 (3.5-5.1) mmol/L Chloride 104 (98-107) mmol/L Carbon Dioxide 25 (22-30) mmol/L BUN 12 (9-20) mg/dL Creatinine 0.86 (0.66-1.25) mg/dL Glucose 230 H (74-99) mg/dL Calcium 8.6 (8.4-10.2) mg/dL AST 31 (17-59) U/L ALT 18 (4-49) U/L Alkaline Phosphatase 100 (38-126) U/L Total Protein 6.5 (6.3-8.2) g/dL Albumin 3.3 L (3.5-5.0) g/dL Current Medications Generic Name Dose Route Start Last Admin Trade Name Freq PRN Reason Stop Dose Admin Aspirin 81 mg 11/11/23 09:00 Aspirin 81 Mg PO DAILY [facility] Atorvastatin Calcium 40 mg 11/11/23 09:00 Atorvastatin 40 Mg Tab PO DAILY [facility] Carvedilol 6.25 mg 11/11/23 17:30 Carvedilol 6.25 Mg Tab PO BID-W/MEALS [facility] Clopidogrel Bisulfate 75 mg 11/11/23 09:00 Clopidogrel 75 Mg Tab PO DAILY [facility] Dextrose/Water 25 ml 11/10/23 19:44 Dextrose 50% Syringe 50 Ml IVP PER PROTOCOL PRN Hypoglycemia Protocol Dextrose/Water 50 ml 11/10/23 19:44 Dextrose 50% Syringe 50 Ml IVP PER PROTOCOL PRN Hypoglycemia Protocol Heparin Sodium (Porcine) 0 unit 11/10/23 19:16 Heparin Sodium 1,000 Un/Ml (10ml Vl) IV PER PROTOCOL PRN Low PTT Protocol Heparin Sodium/Sodium Chloride 250 mls @ 10 mls/hr 11/10/23 19:30 11/10/23 19:35 25,000 unit/ Sodium Chloride IV 10.754 units/kg/hr .Q24H [facility] 10 mls/hr Administration Protocol 10.754 UNITS/KG/HR Insulin Aspart 0 unit 11/11/23 07:30 11/11/23 06:36 Insulin Aspart (Novolog) 100 Unit/Ml Vial SQ 6 unit AC-TID [facility] Administration Protocol Isosorbide Mononitrate 30 mg 11/11/23 09:00 Isosorbide Mononitrate Er 30 Mg Tab.Er.24h PO DAILY [facility] Losartan Potassium 100 mg 11/11/23 09:00 Losartan 50 Mg Tab PO DAILY [facility] Naloxone HCl 0.2 mg 11/10/23 19:39 Naloxone 0.4 Mg/Ml 1 Ml Vial IV Q2M PRN Opioid Reversal Nitroglycerin 0.4 mg 11/11/23 02:58 Nitroglycerin Sl Tabs 0.4 Mg Tab SUBLINGUAL Q5M PRN Chest Pain Intake and Output 11/10/23 11/11/23 11/11/23 22:59 06:59 14:59 Other: Voiding Method Toilet Urinal # Voids 1 Weight 92.986 kg 11/10/23 15:58 11/10/23 17:27
[2023-11-11 08:29] LABS: Basophils % (A) 1 %; Eosinophils # (A) 0.2 k/uL (0-0.7); Eosinophils % (A) 4 %; HGB 14.9 gm/dL (13.0-17.5); Lymphocytes # (A) 2.6 k/uL (1.0-4.8); Lymphocytes % (A) 49 %; MCH 29.6 pg (25.0-35.0); MCHC 33.1 g/dL (31.0-37.0); MCV 89.4 fL (80.0-100.0); Monocytes # (A) 0.4 k/uL (0-1.0); Monocytes % (A) 7 %; Neutrophils % (A) 37 %; Platelet Count 228 k/uL (150-450); RBC 5.03 m/uL (4.30-5.90); RDW 13.2 % (11.5-15.5); WBC 5.3 k/uL (3.8-10.6)
[2023-11-11 08:37] LABS: INR 0.9 (<1.2); Partial Thromboplastin Time 39.7 sec (22.0-30.0); Prothrombin Time 10.3 sec (10.0-12.5)
[2023-11-11] MEDS ORDERED: ATORVASTATIN 20 MG TAB PO SCH (09:00)
[2023-11-11] MEDS ORDERED: LOSARTAN 50 MG TAB PO SCH (09:00)
[2023-11-11 09:03] LABS: African American GFR (CKD) 88 (>60 ml/min/1.73 sqM); Anion Gap 4 mmol/L; Blood Urea Nitrogen 16 mg/dL (9-20); Calcium 8.9 mg/dL (8.4-10.2); Carbon Dioxide 31 mmol/L (22-30); Chloride 103 mmol/L (98-107); Glucose 198 mg/dL (74-99); Non-African American GFR(CKD) 76 (>60 ml/min/1.73 sqM); Potassium 3.9 mmol/L (3.5-5.1); Sodium 138 mmol/L (137-145)
[2023-11-11] MEDS: CLOPIDOGREL 75 MG TAB PO SCH (09:15)
[2023-11-11] MEDS: LINAGLIPTIN 5 MG TABLET PO SCH (09:15)
[2023-11-11] MEDS: ATORVASTATIN 40 MG TAB PO SCH (09:15)
[2023-11-11] MEDS: ASPIRIN 81 MG PO SCH (09:15)
[2023-11-11] MEDS: ISOSORBIDE MONONITRATE ER 30 MG TAB.ER.24H PO SCH (09:15)
[2023-11-11] MEDS: LOSARTAN 50 MG TAB PO SCH (09:15)
[2023-11-11 12:10] LABS: Glucose,Whole Blood 223 mg/dL (70-110)
[2023-11-11] MEDS: INSULIN ASPART (NovoLOG) 100 UNIT/ML VIAL SQ SCH ×3 (12:20→20:45)
--- NOTE | 2023-11-11 12:54 | P.PN ---
Subjective Progress Note Date: 11/11/23 (alyssa charting seen at 1015) Patient is a 48-year-old male with known coronary artery disease, insulin- dependent diabetes mellitus, and hypertension who presented to the emergency department with chest pain. On arrival to the ER his blood pressure was mildly elevated at 153/88 however quickly went up to 183/116. Initial laboratory analysis was remarkable for sodium 135, glucose 230, UA with significant glucose urea as well as proteinuria. Troponin was elevated at 0.038. Influenza A/B/ RSV/COVID-19 testing was negative. EKGs showed no signs of acute ischemia. He was started on nitro in addition to his heparin drip. He was also started on as needed Catapres. Cardiology was consulted. Patient seen and examined at bedside. He only has some pain when pressing on the left side of his chest. Denies any shortness of breath or nausea. He has not seen cardiology since his discharge from the hospital last admission. He is not currently established with a primary care physician. Vital signs reviewed General: Nontoxic, no distress, appears at stated age Cardiovascular: S1S2 reg, no murmur Lungs: CTA bilateral, no rhonchi, no rales, no accessory muscle use Abdominal: Soft, nontender to palpation, no guarding Ext: No gross muscle atrophy, no edema b/l lower extremities, no contractures Neuro: CN II-XI grossly intact, no focal neuro deficits Psych: Alert, oriented, appropriate affect Assessment/Plan: Chest pain Hypertensive urgency Dyslipidemia -Cardiology note reviewed: Continue heparin drip, increase beta-lauren and losartan. Add oral nitrate. -Aspirin 81 mg daily, Plavix 75 mg daily, Lipitor 40 mg at night -Coreg 6.25 mg daily, Cozaar 100 mg daily, Imdur 30 mg daily -Encourage ambulation. Record review: -Cardiac cath reviewed from 09/04/2023 one-vessel CAD with myocardial bridging involving the LAD, given the relatively small caliber of the PDA medical therapy was decided on -Echocardiogram reviewed from 09/02/2023 which showed moderate concentric LVH with preserved ejection fraction of 55% Insulin-dependent diabetes with hyperglycemia -Resume patient's Levemir two thirds the dose at 20 units at night in case additional cardiac procedures are indicated. -Sliding scale insulin -Substitute Jardiance with Tradjenta 5 mg daily Imaging: None new Data Review: Labs reviewed from today include CBC, coags, and BMP which are remarkable for carbon dioxide 31, creatinine 1.15, and glucose of 198. Troponin negative at 0.018 DVT prophylaxis: On heparin drip Anticipated discharge date: 24 to [address]: Home This dictation was prepared using [employer] voice recognition software. Though every attempt is made to correct errors during dictation some may still exist. Objective - Vital Signs Vital signs: Vital Signs Temp 97.9 F 11/11/23 09:14 Pulse 70 11/11/23 12:18 Resp 16 11/11/23 12:18 BP 130/65 11/11/23 12:18 Pulse Ox 95 11/11/23 12:18 FiO2 Intake & Output 11/10/23 11/11/23 11/11/23 18:59 06:59 18:59 Intake Total 262.167 Balance 262.167 Weight 92.986 kg 92.986 kg Intake: Intake, IV Titration 137.167 Amount Heparin Sod,Pork in 0.45% 137.167 NaCl 25,000 unit In 0.45 % NaCl 1 250ml.bag @ 10. 754 UNITS/KG/HR 10 mls/hr IV .Q24H [facility] Rx#: [id number] Oral 125 Other: Voiding Method Toilet Toilet Urinal Urinal # Voids 1 - Labs CBC & Chem 7: 11/11/23 07:44 11/11/23 07:44 Labs: Abnormal Lab Results - Last 24 Hours (Table) 11/10/23 11/10/23 11/10/23 Range/Units 16:08 17:27 17:27 APTT (22.0-30.0) sec Sodium 135 L (137-145) mmol/L Carbon Dioxide (22-30) mmol/L Glucose 230 H (74-99) mg/dL POC Glucose (mg/dL) (70-110) mg/dL Troponin I 0.038 H* (0.000-0.034) ng/mL Albumin 3.3 L (3.5-5.0) g/dL Urine Protein 3+ H (Negative) Urine Glucose (UA) 4+ H (Negative) Urine Ketones 1+ H (Negative) Urine Blood Small H (Negative) Urine RBC 11 H (0-5) /hpf Hyaline Casts 57 H (0-2) /lpf Urine Mucus Rare H (None) /hpf 11/11/23 11/11/23 11/11/23 Range/Units 00:40 05:47 07:44 APTT 44.6 H 39.7 H (22.0-30.0) sec Sodium (137-145) mmol/L Carbon Dioxide (22-30) mmol/L Glucose (74-99) mg/dL POC Glucose (mg/dL) 253 H (70-110) mg/dL Troponin I (0.000-0.034) ng/mL Albumin (3.5-5.0) g/dL Urine Protein (Negative) Urine Glucose (UA) (Negative) Urine Ketones (Negative) Urine Blood (Negative) Urine RBC (0-5) /hpf Hyaline Casts (0-2) /lpf Urine Mucus (None) /hpf 11/11/23 11/11/23 Range/Units 07:44 12:08 APTT (22.0-30.0) sec Sodium (137-145) mmol/L Carbon Dioxide 31 H (22-30) mmol/L Glucose 198 H (74-99) mg/dL POC Glucose (mg/dL) 223 H (70-110) mg/dL Troponin I (0.000-0.034) ng/mL Albumin (3.5-5.0) g/dL Urine Protein (Negative) Urine Glucose (UA) (Negative) Urine Ketones (Negative) Urine Blood (Negative) Urine RBC (0-5) /hpf Hyaline Casts (0-2) /lpf Urine Mucus (None) /hpf
[2023-11-11 13:46] VITALS: BMI 29.4
[2023-11-11 16:36] LABS: Glucose,Whole Blood 252 mg/dL (70-110)
[2023-11-11] MEDS: carvediloL 6.25 MG TAB PO SCH (16:41)
[2023-11-11] MEDS: HEPARIN SOD,PORK IN 0.45% NACL 25,000 UNIT in 0.45% NACL 1 250ML.BAG IV SCH (18:39)
[2023-11-11 20:14] LABS: Glucose,Whole Blood 217 mg/dL (70-110)
[2023-11-11] MEDS ORDERED: INSULIN DETEMIR (LEVEMIR) 100 UNIT/ML SYR SQ SCH (21:00)
[2023-11-12 05:47] VITALS: RESP 16
[2023-11-12 05:47] LABS: Glucose,Whole Blood 207 mg/dL (70-110)
[2023-11-12] MEDS: carvediloL 6.25 MG TAB PO SCH (06:05)
[2023-11-12] MEDS: INSULIN ASPART (NovoLOG) 100 UNIT/ML VIAL SQ SCH ×2 (06:05→12:33)
[2023-11-12] MEDS: LOSARTAN 50 MG TAB PO SCH (08:43)
[2023-11-12] MEDS: ASPIRIN 81 MG PO SCH (08:43)
[2023-11-12] MEDS: ATORVASTATIN 40 MG TAB PO SCH (08:43)
[2023-11-12] MEDS: CLOPIDOGREL 75 MG TAB PO SCH (08:43)
[2023-11-12] MEDS: ISOSORBIDE MONONITRATE ER 30 MG TAB.ER.24H PO SCH (08:43)
[2023-11-12] MEDS: LINAGLIPTIN 5 MG TABLET PO SCH (08:43)
[2023-11-12 08:49] LABS: African American GFR (CKD) >90 (>60 ml/min/1.73 sqM); Anion Gap 2 mmol/L; Blood Urea Nitrogen 21 mg/dL (9-20); Calcium 8.6 mg/dL (8.4-10.2); Carbon Dioxide 28 mmol/L (22-30); Chloride 107 mmol/L (98-107); Glucose 223 mg/dL (74-99); Non-African American GFR(CKD) 81 (>60 ml/min/1.73 sqM); Sodium 137 mmol/L (137-145)
[2023-11-12 09:12] LABS: Potassium 3.7 mmol/L (3.5-5.1)
--- NOTE | 2023-11-12 11:34 | P.PN ---
Subjective HISTORY OF PRESENT ILLNESS: The patient is a 48-year-old male with a known history of hypertension, hyperlipidemia, diabetes, chronic tobacco use and a history of CAD. He has been followed by Dr. Bangura in the past. He underwent cardiac catheterization in August 2023 and was found to have focal stenosis in the small PDA with no evidence of significant obstructive disease in the left system with mid LAD bridging. His images were reviewed at that time by Dr. Amador and was followed to the PDA was too small to undergo PCI. The patient is not always compliant with his medications. Who presented with an episode of chest discomfort yesterday that lasted for 1 minute. His symptoms were not associated with any dyspnea, dizziness or palpitations. He is pain-free at this time. His EKG showed no acute ST segment changes. His first troponin was 0.038 and subsequently 0.016 and 0.018. The patient LV systolic function was normal in the past with no evidence of segmental wall motion abnormality. He denies any PND, orthopnea or peripheral edema. He consumes alcohol occasionally and smokes marijuana but not on a daily basis according to him. Medications: Coreg 3.125 mg twice a day, metformin, losartan 50 mg daily, insulin, aspirin, Januvia. Compliance with medication is unclear November 12, 2023 Patient examined this morning at the bedside. Patient is just about to take a shower. Patient denies any further episodes of chest pain or pressure. He denies shortness of breath. Patient's blood pressure has improved with a recent reading of 147/89. PHYSICAL EXAM: VITAL SIGNS: Reviewed. GENERAL: Well-developed in no acute distress. NECK: Supple. No JVD or thyromegaly LUNGS: Respirations even and unlabored. Lungs essentially clear to auscultation bilaterally. HEART: Regular rate and rhythm. S1 and S2 heard. EXTREMITIES: Normal range of motion. No clubbing or cyanosis. Peripheral pulses intact. No lower extremity edema ASSESSMENT: 1. Chest discomfort of unclear etiology with 1 minimally elevated sample of troponin subsequently normal in a patient with known history of CAD 2. Chronic tobacco use 3. Hypertension 4. Hyperlipidemia 5. History of diabetes 6. Noncompliance PLAN: Continue current cardiac medications Discontinue IV heparin Smoking cessation recommended Compliance with medications reinforced Patient may be discharged home this afternoon from a cardiac standpoint if he remains stable Patient to follow-up postdischarge with Dr. Bangura Nurse practitioner note has been reviewed by physician. Signing provider agrees with the documented findings, assessment, and plan of care documented by [employer] as a scribe. Objective - Vital Signs Vital signs: Vital Signs Temp 98.3 F 11/12/23 11:13 Pulse 65 11/12/23 11:13 Resp 16 11/12/23 11:13 BP 147/89 11/12/23 11:13 Pulse Ox 100 11/12/23 11:13 FiO2 Intake & Output 11/11/23 11/12/23 11/12/23 18:59 06:59 18:59 Intake Total 971.021 180 Balance 971.021 180 Weight 92.986 kg Intake: Intake, IV Titration 248.021 Amount Heparin Sod,Pork in 0.45% 248.021 NaCl 25,000 unit In 0.45 % NaCl 1 250ml.bag @ 10. 754 UNITS/KG/HR 10 mls/hr IV .Q24H [facility] Rx#: [id number] Oral 723 180 Other: Voiding Method Toilet Toilet Toilet Urinal # Voids 2 - Labs CBC & Chem 7: 11/11/23 07:44 11/12/23 07:56 Labs: Abnormal Lab Results - Last 24 Hours (Table) 11/11/23 11/11/23 11/11/23 Range/Units 07:44 12:08 15:09 APTT 57.4 H (22.0-30.0) sec BUN (9-20) mg/dL Glucose (74-99) mg/dL POC Glucose (mg/dL) 223 H (70-110) mg/dL Hemoglobin A1c 11.0 H (<=6.0) % 11/11/23 11/11/23 11/12/23 Range/Units 16:34 20:03 05:35 APTT (22.0-30.0) sec BUN (9-20) mg/dL Glucose (74-99) mg/dL POC Glucose (mg/dL) 252 H 217 H 207 H (70-110) mg/dL Hemoglobin A1c (<=6.0) % 11/12/23 11/12/23 Range/Units 07:56 07:56 APTT 54.0 H (22.0-30.0) sec BUN 21 H (9-20) mg/dL Glucose 223 H (74-99) mg/dL POC Glucose (mg/dL) (70-110) mg/dL Hemoglobin A1c (<=6.0) %
[2023-11-12 11:35] VITALS: BP 147/89; PULSE 65; TEMP 98.3
[2023-11-12 11:36] LABS: Glucose,Whole Blood 195 mg/dL (70-110)
--- NOTE | 2023-11-12 12:02 | P.DS ---
Providers Date of admission: 11/10/23 19:41 Expected date of discharge: 11/12/23 Attending physician: Latoya Tolbert MD Consults: 11/10/23 19:39 Consult Physician Routine Consulting Provider: [facility] Consult Reason/Comments: nstemi Do you want consulting provider notified?: Yes Primary care physician: Stated None Hospital Course: Discharge Diagnosis: NSTEMI CAD HTN urgency HLD IDDM, with hyperglycemia Occasional noncompliance Hospital Course: Patient is a 48-year-old male with known coronary artery disease, insulin- dependent diabetes mellitus, and hypertension who presented to the emergency department with chest pain. On arrival to the ER his blood pressure was mildly elevated at 153/88 however quickly went up to 183/116. Initial laboratory bj sis was remarkable for sodium 135, glucose 230, UA with significant glucose urea as well as proteinuria. Troponin was elevated at 0.038. Influenza A/B/RSV/COVID-19 testing was negative. EKGs showed no signs of acute ischemia. He was started on nitro in addition to his heparin drip. He was also started on as needed Catapres. Troponin down trended. Cardiology was consulted. IV heparin drip was discontinued, medication changes made. Concern for poor compliance with medication. Follow-up with cardiology outpatient. No further cardiac imaging completed during this admission. At that time of discharge, patient denies any further chest pain. Patient being discharged on aspirin, Plavix, statin, antihypertensives. Patient seen and examined at bedside. Vital signs reviewed and stable. General: Nontoxic, no distress, appears at stated age, obese Derm: Warm, dry Head: Atraumatic, normocephalic, symmetric Eyes: EOMI, no lid lag, anicteric sclera Mouth: No lip lesion, mucus membranes moist Cardiovascular: S1S2 reg, no murmur Lungs: CTA bilateral, no rhonchi, no rales, no accessory muscle use Abdominal: Soft, nontender to palpation, no guarding, no appreciable organomegaly Ext: No gross muscle atrophy, no edema, no contractures Neuro: CN II-XI grossly intact, no focal neuro deficits Psych: Alert, oriented, appropriate affect A total of 33 minutes of time were spent preparing this complex discharge summary. Patient was discharged on 11/12/23 at 1201. Patient Condition at Discharge: Stable Plan - Discharge Summary Discharge Rx Participant: Yes New Discharge Prescriptions: New Aspirin 81 mg PO DAILY #90 tab Losartan [Cozaar] 100 mg PO DAILY #90 tab carvediloL [Coreg] 6.25 mg PO BID-W/MEALS #90 tab Isosorbide Mononitrate ER [Imdur] 30 mg PO DAILY #90 tab Atorvastatin [Lipitor] 40 mg PO DAILY #90 tab Clopidogrel [Plavix] 75 mg PO DAILY #90 tab Continue sitaGLIPtin PHOSPHATE [Januvia] 25 mg PO DAILY #60 tab metFORMIN HCL ER [Glucophage XR] 500 mg PO DAILY #60 tab Insulin Detemir (Levemir) [Levemir] 30 unit SQ HS #7 each Discontinued Aspirin 81 mg PO DAILY #60 tab Losartan [Cozaar] 50 mg PO DAILY 30 Days #30 tab carvediloL [Coreg] 3.125 mg PO BID Discharge Medication List Insulin Detemir (Levemir) [Levemir] 30 unit SQ HS #7 each 09/02/23 [Rx] metFORMIN HCL ER [Glucophage XR] 500 mg PO DAILY #60 tab 09/02/23 [Rx] sitaGLIPtin PHOSPHATE [Januvia] 25 mg PO DAILY #60 tab 09/02/23 [Rx] Aspirin 81 mg PO DAILY #90 tab 11/12/23 [Rx] Atorvastatin [Lipitor] 40 mg PO DAILY #90 tab 11/12/23 [Rx] Clopidogrel [Plavix] 75 mg PO DAILY #90 tab 11/12/23 [Rx] Isosorbide Mononitrate ER [Imdur] 30 mg PO DAILY #90 tab 11/12/23 [Rx] Losartan [Cozaar] 100 mg PO DAILY #90 tab 11/12/23 [Rx] carvediloL [Coreg] 6.25 mg PO BID-W/MEALS #90 tab 11/12/23 [Rx] Follow up Appointment(s)/Referral(s): None,Stated [Primary Care Provider] - 1-2 days Juice Bangura MD [STAFF PHYSICIAN] - 1 Week Patient Instructions/Handouts: Heart Attack (DC) Activity/Diet/Wound Care/Special Instructions: Please see cardiology. Discharge/Stand Alone Forms: Area PCPs Discharge Disposition: HOME SELF-CARE
--- NOTE | 2023-11-12 13:41 | CDI ---
Documentation Clarification Form Date: 11/12/2023 01:12:18 PM From: Flower Muller RN, CCDS Phone: [phone] Admit Date: 11/10/2023 07:41:00 PM Patient Name: Henok Muñiz Visit Number: [id number] Discharge Date: ATTENTION: The Clinical Documentation Specialists (CDI) and [facility] Coding Staff appreciate your assistance in clarifying documentation. Please respond to the clarification below the line at the bottom and electronically sign. The CDI & [facility] Coding staff will review the response and follow-up if needed. Please note: Queries are made part of the Legal Health Record. If you have any questions, please contact the author of this message via ITS. Dr. Tomy Anaya Conflicting documentation has been found in the medical record. As attending physician, please provide clarification. 11/12 Discharge summary: Non-STEMI 11/11 attending progress notes: Chest pain. History/Risk Factors: coronary artery disease, insulin-dependent diabetes mellitus, and hypertension Clinical Indicators: 48-year-old male with known coronary artery disease presented to the emergency department with chest pain. On arrival to the ER his blood pressure was mildly elevated at 153/88 however quickly 183/116 went up to. Troponin was elevated at 0.038, repeat 0.016, 0.018. VS 153/88 89 18 97.9 100 RA Treatment: Telephone [employer] Box Collector/Telemetry Heparin Drip per orders 11/10 -11/11 Cozaar 100MG PO Daily 11/11- Imdur 30 MG PO Daily 11/12- Plavix 75MG PO Daily 11/11-, Coreg 6.25 MG PO BID 11/11-11/12 Please clarify which diagnosis is most appropriate: [ ] Chest pain, specify cause if known [ x ] NSTEMI [ ] Other (please specify) [ ] Unable to determine (Template Last Revised: December 2020) MTDD
[2023-11-12] MEDS ORDERED: HEPARIN SODIUM,PORCINE 5,000 UNIT/ML 1 ML VIAL SQ SCH (16:00)
== END 2023-11-12 14:53 | disposition home or self-care (01) | DRG 190 ==
LOC: EC 14:05 → 3SCARD 19:41
PROVIDERS: ADMIT Internal Medicine; ATTEND Internal Medicine
DX: I21.4 Non-ST elevation (NSTEMI) myocardial infarction (principal); I25.119 Atherosclerotic heart disease of native coronary artery with unspecified angina pectoris; E78.5 Hyperlipidemia, unspecified; T46.5X6A Underdosing of other antihypertensive drugs, initial encounter; F17.200 Nicotine dependence, unspecified, uncomplicated; F20.9 Schizophrenia, unspecified; I10 Essential (primary) hypertension; I16.0 Hypertensive urgency; Z79.02 Long term (current) use of antithrombotics/antiplatelets; Z79.4 Long term (current) use of insulin; Z79.82 Long term (current) use of aspirin; Z79.84 Long term (current) use of oral hypoglycemic drugs; Z79.899 Other long term (current) drug therapy; Z82.49 Family history of ischemic heart disease and other diseases of the circulatory system; Z91.199 Patient's noncompliance with other medical treatment and regimen due to unspecified reason; Z91.128 Patient's intentional underdosing of medication regimen for other reason; Z11.52 Encounter for screening for COVID-19
CPT/HCPCS: 36415; 71046; 80048; 80053; 81001; 83036; 83735; 84484; 85025; 85610; 85730; 87636; 93005; 96365; 96366; 96375; 99291

== ENCOUNTER 2023-11-14 01:24 | Emergency (ER) | payer OTHER ==
[2023-11-14] MEDS ORDERED: SODIUM CHLORIDE 0.9% 500 ML 500 ML IV STA (01:39)
[2023-11-14] MEDS ORDERED: ASPIRIN 81 MG PO STA (01:39)
--- NOTE | 2023-11-14 01:46 | ED ---
Extremity Problem HPI - General Chief complaint: Extremity Problem,Nontraumatic Stated complaint: Burning in feet Time Seen by Provider: 11/14/23 01:32 Source: patient Mode of arrival: wheelchair Limitations: no limitations - History of Present Illness Initial comments: 48-year-old male presenting with chief complaint of bilateral burning foot pain and chest pain. Patient has diabetes and neuropathy, burning pain due to neuropathy. No injury, trauma, deformity, discoloration, weakness. Chest pain started this evening. It feels like a squeezing pain in the center of his chest. No active pain at this time. No radiation. No difficulty breathing. No nausea vomiting or abdominal pain. No fever, chills, cough, congestion, sore throat. No palpitations. Patient was admitted recently for NSTEMI, he was found to have 1 positive troponin, followed by 2 negative values. Cardiology determined no need for repeat cath, instructed to follow-up with cardiology as an outpatient. - Related Data Previous Rx's Medication Instructions Recorded Insulin Detemir (Levemir) [Levemir] 30 unit SQ HS #7 each 09/02/23 metFORMIN HCL ER [Glucophage XR] 500 mg PO DAILY #60 tab 09/02/23 sitaGLIPtin PHOSPHATE [Januvia] 25 mg PO DAILY #60 tab 09/02/23 Aspirin 81 mg PO DAILY #90 tab 11/12/23 Atorvastatin [Lipitor] 40 mg PO DAILY #90 tab 11/12/23 Clopidogrel [Plavix] 75 mg PO DAILY #90 tab 11/12/23 Isosorbide Mononitrate ER [Imdur] 30 mg PO DAILY #90 tab 11/12/23 Losartan [Cozaar] 100 mg PO DAILY #90 tab 11/12/23 carvediloL [Coreg] 6.25 mg PO BID-W/MEALS #90 tab 11/12/23 Allergies Allergy/AdvReac Type Severity Reaction Status Date / Time blue dye AdvReac Rapid Verified 11/14/23 01:29 Heart Rate Review of Systems ROS Statement: Those systems with pertinent positive or pertinent negative responses have been documented in the HPI. ROS Other: All systems not noted in ROS Statement are negative. Past Medical History Past Medical History: Coronary Artery Disease (CAD), Diabetes Mellitus Additional Past Medical History / Comment(s): pt type 1 diabetes Last Myocardial Infarction Date:: 2021 History of Any Multi-Drug Resistant Organisms: None Reported Past Surgical History: Orthopedic Surgery Additional Past Surgical History / Comment(s): Knee surgey 1993 Past Anesthesia/Blood Transfusion Reactions: No Reported Reaction Past Psychological History: Schizophrenia Smoking Status: Current every day smoker, Vaper Past Alcohol Use History: Occasional Past Drug Use History: Marijuana - Past Family History Father Family Medical History: Coronary Artery Disease (CAD) General Exam Limitations: no limitations General appearance: alert, in no apparent distress Head exam: Present: atraumatic, normocephalic Eye exam: Present: normal appearance, EOMI Neck exam: Present: normal inspection Respiratory exam: Present: normal lung sounds bilaterally. Absent: respiratory distress, wheezes, rales, rhonchi, stridor Cardiovascular Exam: Present: regular rate, normal rhythm, normal heart sounds. Absent: systolic murmur, diastolic murmur, rubs, gallop, clicks Extremities exam: Present: normal capillary refill Neurological exam: Present: alert, oriented X3 Psychiatric exam: Present: normal affect, normal mood Skin exam: Present: warm, dry Course Vital Signs 11/14/23 11/14/23 11/14/23 01:29 02:00 02:08 Temperature 97.5 F L Pulse Rate 117 H 70 Pulse Rate [ 71 Corporate Legal Intern ] Respiratory 18 16 Rate Blood Pressure 129/60 160/91 O2 Sat by Pulse 96 99 Oximetry 11/14/23 11/14/23 11/14/23 03:19 04:12 05:33 Temperature Pulse Rate 72 66 66 Pulse Rate [ Corporate Legal Intern ] Respiratory 20 16 16 Rate Blood Pressure 118/90 156/85 145/92 O2 Sat by Pulse 98 99 99 Oximetry 11/14/23 06:22 Temperature 97.8 F Pulse Rate 66 Pulse Rate [ Corporate Legal Intern ] Respiratory 16 Rate Blood Pressure 145/92 O2 Sat by Pulse 99 Oximetry Medical Decision Making - Medical Decision Making Was pt. sent in by a medical professional or institution (, PA, CASE MANAGEMENT MANAGER, urgent care, hospital, or fdc...) When possible be specific @ -No Did you speak to anyone other than the patient for history (EMS, parent, family, police, friend...)? What history was obtained from this source @ -No Did you review nursing and triage notes (agree or disagree)? Why? @ -I reviewed and agree with nursing and triage notes Were old charts reviewed (outside hosp., previous admission, EMS record, old EKG, old radiological studies, urgent care reports/EKG's, fdc records)? Report findings @ -Patient's recent admission is reviewed Differential Diagnosis (chest pain, altered mental status, abdominal pain women, abdominal pain men, vaginal bleeding, weakness, fever, dyspnea, syncope, headache, dizziness, GI bleed, back pain, seizure, CVA, palpatations, mental health, musculoskeletal)? @ -[facility] Differential Chest Pain: Stable Angina, Unstable Angina, STEMI, NSTEMI Aortic Dissection, Pneumothorax, Musculoskeletal, Esophageal Spasm GERD, Cholecystitis, Pancreatitis, Zoster This is not meant to be an all-inclusive list. EKG interpreted by me (3pts min.). @ -EKG shows sinus rhythm ventricular rate 72. PA interval 150. QRS 92. QT 377. QTc 401. X-rays interpreted by me (1pt min.). @ -Chest x-ray shows no acute cardiopulmonary process CT interpreted by me (1pt min.). @ -None done U/S interpreted by me (1pt. min.). @ -None done What testing was considered but not performed or refused? (CT, X-rays, U/S, labs)? Why? @ -None What meds were considered but not given or refused? Why? @ -None Did you discuss the management of the patient with other professionals (professionals i.e. , PA, CASE MANAGEMENT MANAGER, lab, RT, psych nurse, rn social work, lawyer real estate, teacher, seal delivery vehicle officer, case management manager)? Give summary @ -No Was smoking cessation discussed for >3mins.? @ -No Was critical care preformed (if so, how long)? @ -No Were there social determinants of health that impacted care today? How? (Homelessness, low income, unemployed, alcoholism, drug addiction, transportation, low edu. Level, literacy, decrease access to med. care, penitentiary, rehab)? @ -No Was there de-escalation of care discussed even if they declined (Discuss DNR or withdrawal of care, Hospice)? DNR status @ -No What co-morbidities impacted this encounter? (DM, HTN, Smoking, COPD, CAD, Cancer, CVA, ARF, Chemo, Hep., AIDS, mental health diagnosis, sleep apnea, morbid obesity)? @ -None Was patient admitted / discharged? Hospital course, mention meds given and route, prescriptions, significant lab abnormalities, going to OR and other pertinent info. @ -48-year-old male presenting with chief complaint of burning to the bilateral feet. History of diabetic neuropathy. He also complains of chest pain that occurred this evening. He is having no pain presently. History and physical exam were conducted. Patient was recently admitted for chest pain, he was noted to have 1 positive troponin with the following 2 being negative. He was determined to have chest pain of uncertain origin and instructed to follow-up with cardiology outpatient. He was discharged on the . Lab work shows no leukocytosis or anemia. Troponin 0.015. BUN 24 creatinine 1.55. Glucose 201. Chest x-ray shows no acute process. EKG shows sinus rhythm with no acute changes from previous EKG. given that the patient has no pain in the department and was recently evaluated during admission by cardiology 2 days ago, I do not believe that he requires admission if a second negative troponin is obtained. Patient will have a second troponin drawn. If the troponin is negative he will be discharged by my attending Dr. Patrick and instructed to follow-up with cardiology and PCP, required discharge paperwork is prepared in the event he is stable for dc home. Undiagnosed new problem with uncertain prognosis? @ -No Drug Therapy requiring intensive monitoring for toxicity (Heparin, Nitro, Insulin, Cardizem)? @ -No Were any procedures done? @ -No Diagnosis/symptom? @ -Diabetic neuropathy Acute, or Chronic, or Acute on Chronic? @ -Acute on chronic Uncomplicated (without systemic symptoms) or Complicated (systemic symptoms)? @ -Uncomplicated Side effects of treatment? @ -No Exacerbation, Progression, or Severe Exacerbation? @ -No Poses a threat to life or bodily function? How? (Chest pain, USA, [place], pneumonia, PE, COPD, DKA, ARF, appy, cholecystitis, CVA, Diverticulitis, Homicidal, Chung icidal, threat to staff... and all critical care pts) @ -No Diagnosis/symptom? @Atypical chest pain Acute, or Chronic, or Acute on Chronic? @Acute Uncomplicated (without systemic symptoms) or Complicated (systemic symptoms)? @Uncomplicated Side effects of treatment? @None Exacerbation, Progression, or Severe Exacerbation] @No Poses a threat to life or bodily function? @Low likelihood given recent workup - Lab Data Result diagrams: 11/14/23 01:51 11/14/23 01:51 Lab Results 11/14/23 11/14/23 11/14/23 Range/Units 01:51 01:51 01:51 WBC 6.1 (3.8-10.6) k/uL RBC 4.70 (4.30-5.90) m/uL Hgb 14.1 (13.0-17.5) gm/dL Hct 42.1 (39.0-53.0) % MCV 89.6 (80.0-100.0) fL MCH 30.0 (25.0-35.0) pg MCHC 33.5 (31.0-37.0) g/dL RDW 13.4 (11.5-15.5) % Plt Count 205 (150-450) k/uL MPV 9.0 Neutrophils % 47 % Lymphocytes % 40 % Monocytes % 7 % Eosinophils % 3 % Basophils % 0 % Neutrophils # 2.9 (1.3-7.7) k/uL Lymphocytes # 2.4 (1.0-4.8) k/uL Monocytes # 0.4 (0-1.0) k/uL Eosinophils # 0.2 (0-0.7) k/uL Basophils # 0.0 (0-0.2) k/uL PT 10.9 (10.0-12.5) sec INR 1.0 (<1.2) APTT 28.0 (22.0-30.0) sec Sodium 136 L (137-145) mmol/L Potassium 3.9 (3.5-5.1) mmol/L Chloride 105 (98-107) mmol/L Carbon Dioxide 30 (22-30) mmol/L Anion Gap 1 mmol/L BUN 24 H (9-20) mg/dL Creatinine 1.55 H (0.66-1.25) mg/dL Est GFR (CKD-EPI)AfAm 61 (>60 ml/min/1.73 sqM) Est GFR (CKD-EPI)NonAf 53 (>60 ml/min/1.73 sqM) Glucose 201 H (74-99) mg/dL Calcium 8.8 (8.4-10.2) mg/dL Magnesium 1.7 (1.6-2.3) mg/dL Total Bilirubin 0.8 (0.2-1.3) mg/dL AST 37 (17-59) U/L ALT 23 (4-49) U/L Alkaline Phosphatase 90 (38-126) U/L Troponin I (0.000-0.034) ng/mL Total Protein 6.4 (6.3-8.2) g/dL Albumin 3.3 L (3.5-5.0) g/dL 11/14/23 11/14/23 Range/Units 01:51 05:00 WBC (3.8-10.6) k/uL RBC (4.30-5.90) m/uL Hgb (13.0-17.5) gm/dL Hct (39.0-53.0) % MCV (80.0-100.0) fL MCH (25.0-35.0) pg MCHC (31.0-37.0) g/dL RDW (11.5-15.5) % Plt Count (150-450) k/uL MPV Neutrophils % % Lymphocytes % % Monocytes % % Eosinophils % % Basophils % % Neutrophils # (1.3-7.7) k/uL Lymphocytes # (1.0-4.8) k/uL Monocytes # (0-1.0) k/uL Eosinophils # (0-0.7) k/uL Basophils # (0-0.2) k/uL PT (10.0-12.5) sec INR (<1.2) APTT (22.0-30.0) sec Sodium (137-145) mmol/L Potassium (3.5-5.1) mmol/L Chloride (98-107) mmol/L Carbon Dioxide (22-30) mmol/L Anion Gap mmol/L BUN (9-20) mg/dL Creatinine (0.66-1.25) mg/dL Est GFR (CKD-EPI)AfAm (>60 ml/min/1.73 sqM) Est GFR (CKD-EPI)NonAf (>60 ml/min/1.73 sqM) Glucose (74-99) mg/dL Calcium (8.4-10.2) mg/dL Magnesium (1.6-2.3) mg/dL Total Bilirubin (0.2-1.3) mg/dL AST (17-59) U/L ALT (4-49) U/L Alkaline Phosphatase (38-126) U/L Troponin I 0.015 <0.012 (0.000-0.034) ng/mL Total Protein (6.3-8.2) g/dL Albumin (3.5-5.0) g/dL Disposition Clinical Impression: Peripheral neuropathy, Atypical chest pain Disposition: HOME SELF-CARE Condition: Fair Instructions (If sedation given, give patient instructions): Chest Pain (ED), Diabetic Peripheral Neuropathy (ED) Additional Instructions: Follow-up with PCP and cardiology. Report back to ER with any new or worsening symptoms. Is patient prescribed a controlled substance at d/c from ED?: No Referrals: None,Stated [Primary Care Provider] - 1-2 days Juice Bangura MD [STAFF PHYSICIAN] - 1-2 days
[2023-11-14 02:06] LABS: Basophils % (A) 0 %; Eosinophils # (A) 0.2 k/uL (0-0.7); Eosinophils % (A) 3 %; HCT 42.1 % (39.0-53.0); HGB 14.1 gm/dL (13.0-17.5); Lymphocytes # (A) 2.4 k/uL (1.0-4.8); Lymphocytes % (A) 40 %; MCHC 33.5 g/dL (31.0-37.0); MCV 89.6 fL (80.0-100.0); Monocytes # (A) 0.4 k/uL (0-1.0); Monocytes % (A) 7 %; Neutrophils # (A) 2.9 k/uL (1.3-7.7); Neutrophils % (A) 47 %; Platelet Count 205 k/uL (150-450); RDW 13.4 % (11.5-15.5); WBC 6.1 k/uL (3.8-10.6)
[2023-11-14 02:17] LABS: ALT 23 U/L (4-49); African American GFR (CKD) 61 (>60 ml/min/1.73 sqM); Albumin 3.3 g/dL (3.5-5.0); Anion Gap 1 mmol/L; Blood Urea Nitrogen 24 mg/dL (9-20); Calcium 8.8 mg/dL (8.4-10.2); Carbon Dioxide 30 mmol/L (22-30); Chloride 105 mmol/L (98-107); Glucose 201 mg/dL (74-99); Non-African American GFR(CKD) 53 (>60 ml/min/1.73 sqM); Sodium 136 mmol/L (137-145); Total Bilirubin 0.8 mg/dL (0.2-1.3); Total Protein 6.4 g/dL (6.3-8.2)
[2023-11-14 02:23] LABS: Prothrombin Time 10.9 sec (10.0-12.5)
[2023-11-14 02:26] LABS: AST 37 U/L (17-59); Alkaline Phosphatase 90 U/L (38-126); Magnesium 1.7 mg/dL (1.6-2.3); Potassium 3.9 mmol/L (3.5-5.1)
--- NOTE | 2023-11-14 03:39 | XR ---
EXAM: XR Chest, 2 Views CLINICAL HISTORY: XR Reason: Chest Pain TECHNIQUE: Frontal and lateral views of the chest. COMPARISON: October 10, 2023 FINDINGS: Lungs: Slightly prominent central interstitial markings suggest mild emphysema or bronchitis. No acute focal infiltrate or consolidation is seen. Pleural space: Unremarkable. No pneumothorax. Heart: Unremarkable. No cardiomegaly. Mediastinum: Unremarkable. Normal mediastinal contour. Bones/joints: Mild osteophytosis in the lower thoracic spine. No acute fracture. IMPRESSION: Slightly prominent central interstitial markings suggest mild emphysema or bronchitis. No acute focal infiltrate or consolidation is seen. This is similar to previous.
[2023-11-14 04:29] VITALS: PULSE 66; RESP 16
[2023-11-14 05:40] VITALS: BP 145/92
[2023-11-14 06:29] VITALS: TEMP 97.8
== END 2023-11-14 06:35 | disposition home or self-care (01) ==
LOC: EC 01:24
DX: E10.42 Type 1 diabetes mellitus with diabetic polyneuropathy (principal); R07.89 Other chest pain; I25.10 Atherosclerotic heart disease of native coronary artery without angina pectoris; F17.200 Nicotine dependence, unspecified, uncomplicated; I25.2 Old myocardial infarction; F17.290 Nicotine dependence, other tobacco product, uncomplicated; F12.90 Cannabis use, unspecified, uncomplicated; Z91.041 Radiographic dye allergy status
CPT/HCPCS: 36415; 71046; 80053; 83735; 84484; 85025; 85610; 85730; 96360; 99284

== ENCOUNTER 2023-11-25 23:22 | Emergency (ER) | payer OTHER ==
[2023-11-25 23:39] VITALS: RESP 18; TEMP 97.9
--- NOTE | 2023-11-26 01:51 | ED ---
ENT HPI - General Chief complaint: ENT Stated complaint: Throat Pain Time Seen by Provider: 11/26/23 00:52 Source: patient Mode of arrival: ambulatory Limitations: no limitations - History of Present Illness Initial comments: 48-year-old male presenting to the ED with a chief complaint of sore throat. Patient states this issue has been intermittent for the last 16 years however has been occurring more frequently lately. Patient reports that he often belches, reports a sour taste in his mouth, and reports a burning station up his chest and his throat. Otherwise denies chest pain shortness of breath. No abdominal pain. No other complaints at this time. - Related Data Previous Rx's Medication Instructions Recorded Insulin Detemir (Levemir) [Levemir] 30 unit SQ HS #7 each 09/02/23 metFORMIN HCL ER [Glucophage XR] 500 mg PO DAILY #60 tab 09/02/23 sitaGLIPtin PHOSPHATE [Januvia] 25 mg PO DAILY #60 tab 09/02/23 Aspirin 81 mg PO DAILY #90 tab 11/12/23 Atorvastatin [Lipitor] 40 mg PO DAILY #90 tab 11/12/23 Clopidogrel [Plavix] 75 mg PO DAILY #90 tab 11/12/23 Isosorbide Mononitrate ER [Imdur] 30 mg PO DAILY #90 tab 11/12/23 Losartan [Cozaar] 100 mg PO DAILY #90 tab 11/12/23 carvediloL [Coreg] 6.25 mg PO BID-W/MEALS #90 tab 11/12/23 Famotidine [Pepcid] 20 mg PO BID #28 tablet 11/26/23 Allergies Allergy/AdvReac Type Severity Reaction Status Date / Time blue dye AdvReac Rapid Verified 11/25/23 23:33 Heart Rate Review of Systems ROS Statement: Those systems with pertinent positive or pertinent negative responses have been documented in the HPI. ROS Other: All systems not noted in ROS Statement are negative. Past Medical History Past Medical History: Coronary Artery Disease (CAD), Diabetes Mellitus Additional Past Medical History / Comment(s): pt type 1 diabetes Last Myocardial Infarction Date:: 2021 History of Any Multi-Drug Resistant Organisms: None Reported Past Surgical History: Orthopedic Surgery Additional Past Surgical History / Comment(s): Knee surgey 1993 Past Anesthesia/Blood Transfusion Reactions: No Reported Reaction Past Psychological History: Schizophrenia Smoking Status: Current every day smoker, Vaper Past Alcohol Use History: Occasional Past Drug Use History: Marijuana - Past Family History Father Family Medical History: Coronary Artery Disease (CAD) General Exam Limitations: no limitations General appearance: alert, in no apparent distress Eye exam: Present: normal appearance Neck exam: Present: normal inspection Respiratory exam: Present: normal lung sounds bilaterally Cardiovascular Exam: Present: regular rate, normal rhythm GI/Abdominal exam: Present: soft Neurological exam: Present: alert, oriented X3 Skin exam: Present: warm, dry Course Vital Signs 11/25/23 23:31 Temperature 97.9 F Pulse Rate 81 Respiratory 18 Rate Blood Pressure 168/74 O2 Sat by Pulse 98 Oximetry Medical Decision Making - Medical Decision Making Was pt. sent in by a medical professional or institution (, PA, STAFF DEVELOPMENT NURSE, urgent care, hospital, or longterm...) When possible be specific @ -No Did you speak to anyone other than the patient for history (EMS, parent, family, police, friend...)? What history was obtained from this source @ -No Did you review nursing and triage notes (agree or disagree)? Why? @ -I reviewed and agree with nursing and triage notes Were old charts reviewed (outside hosp., previous admission, EMS record, old EKG, old radiological studies, urgent care reports/EKG's, longterm records)? Report findings @ -No old charts were reviewed Differential Diagnosis (chest pain, altered mental status, abdominal pain women, abdominal pain men, vaginal bleeding, weakness, fever, dyspnea, syncope, headache, dizziness, GI bleed, back pain, seizure, CVA, palpatations, mental health, musculoskeletal)? @ -Differential Abdominal Pain Men: Appendicitis, cholecystitis, diverticulosis, ischemic bowel, pancreatitis, hepatitis, UTI, gastroenteritis, AAA, incarcerated hernia, bowel obstruction, constipation, inflammatory bowel, hepatitis, peptic ulcer disease, splenic infarction, perforated viscus, testicular torsion, this is not meant to be an all-inclusive list EKG interpreted by me (3pts min.). @ -None X-rays interpreted by me (1pt min.). @ -None done CT interpreted by me (1pt min.). @ -None done U/S interpreted by me (1pt. min.). @ -None done What testing was considered but not performed or refused? (CT, X-rays, U/S, labs)? Why? @ -None What meds were considered but not given or refused? Why? @ -None Did you discuss the management of the patient with other professionals (professionals i.e. , PA, STAFF DEVELOPMENT NURSE, lab, RT, psych nurse, social services analyst, lead front desk agent, teacher, privacy officer, supportive employment case manager)? Give summary @ -No Was smoking cessation discussed for >3mins.? @ -No Was critical care preformed (if so, how long)? @ -No Were there social determinants of health that impacted care today? How? (Homelessness, low income, unemployed, alcoholism, drug addiction, transportation, low edu. Level, literacy, decrease access to med. care, nursing home, rehab)? @ -No Was there de-escalation of care discussed even if they declined (Discuss DNR or withdrawal of care, Hospice)? DNR status @ -No What co-morbidities impacted this encounter? (DM, HTN, Smoking, COPD, CAD, Cancer, CVA, ARF, Chemo, Hep., AIDS, mental health diagnosis, sleep apnea, morbid obesity)? @ -None Was patient admitted / discharged? Hospital course, mention meds given and route, prescriptions, significant lab abnormalities, going to OR and other pertinent info. @ -Discharge 48-year-old male presenting to the ED with complaints of intermittent belching, sour taste in his mouth, and a burning sensation going up his chest and throat. Symptoms likely related to GERD. Provided patient Pepcid here in the ED and prescription for Pepcid. Discharged home in stable condition advised to follow- up with his PCP. Discussed return precautions with patient who verbalized agreement. Undiagnosed new problem with uncertain prognosis? @ -No Drug Therapy requiring intensive monitoring for toxicity (Heparin, Nitro, Insulin, Cardizem)? @ -No Were any procedures done? @ -No Diagnosis/symptom? @ -GERD Acute, or Chronic, or Acute on Chronic? @ -Acute on chronic Uncomplicated (without systemic symptoms) or Complicated (systemic symptoms)? @ -Uncomplicated Side effects of treatment? @ -No Exacerbation, Progression, or Severe Exacerbation? @ -No Poses a threat to life or bodily function? How? (Chest pain, USA, [place], pneumonia, PE, COPD, DKA, ARF, appy, cholecystitis, CVA, Diverticulitis, Homicidal, Suicidal, threat to staff... and all critical care pts) @ -No Disposition Clinical Impression: GERD (gastroesophageal reflux disease) Disposition: HOME SELF-CARE Condition: Good Instructions (If sedation given, give patient instructions): GERD (Gastroesophageal Reflux Disease) (ED) Additional Instructions: Please return to the Emergency Department if symptoms worsen or any other concerns. Please follow-up with your primary care provider. Prescriptions: Famotidine [Pepcid] 20 mg PO BID #28 tablet Is patient prescribed a controlled substance at d/c from ED?: No Referrals: None,Stated [Primary Care Provider] - 1-2 days Time of Disposition: 01:54
[2023-11-26] MEDS: FAMOTIDINE 20 MG TAB PO STA (01:59)
[2023-11-26 02:21] VITALS: BP 141/96; PULSE 85
== END 2023-11-26 02:08 | disposition home or self-care (01) ==
LOC: EC 23:22
DX: K21.9 Gastro-esophageal reflux disease without esophagitis (principal); E11.9 Type 2 diabetes mellitus without complications; I25.10 Atherosclerotic heart disease of native coronary artery without angina pectoris; F17.290 Nicotine dependence, other tobacco product, uncomplicated; F12.90 Cannabis use, unspecified, uncomplicated; Z91.041 Radiographic dye allergy status
CPT/HCPCS: 99282

== ENCOUNTER 2023-12-07 14:14 | Emergency (ER) | payer OTHER ==
[2023-12-07] MEDS: KETOROLAC 15 MG/ML 1 ML VIAL IM STA (15:08)
[2023-12-07] MEDS: LIDOCAINE 4% PATCH TOPICAL ONE (15:10)
[2023-12-07] MEDS: MAG HYDROX/AL HYDROX/SIMETH 30 ML, HYOSCYAMINE ELIXIR 10 ML, LIDOCAINE VISCOUS 2% 10 ML PO STA (15:10)
[2023-12-07] MEDS: ORPHENADRINE 30 MG/ML 2 ML VIAL IM STA (15:18)
[2023-12-07 15:39] LABS: Basophils % (A) 1 %; Eosinophils # (A) 0.2 k/uL (0-0.7); Eosinophils % (A) 4 %; HCT 45.6 % (39.0-53.0); HGB 15.3 gm/dL (13.0-17.5); Lymphocytes # (A) 2.1 k/uL (1.0-4.8); Lymphocytes % (A) 34 %; MCH 30.1 pg (25.0-35.0); MCHC 33.5 g/dL (31.0-37.0); MCV 89.9 fL (80.0-100.0); Mean Platelet Volume 8.8; Monocytes # (A) 0.4 k/uL (0-1.0); Monocytes % (A) 6 %; Neutrophils # (A) 3.4 k/uL (1.3-7.7); Neutrophils % (A) 54 %; Platelet Count 222 k/uL (150-450); RBC 5.08 m/uL (4.30-5.90); RDW 13.1 % (11.5-15.5); WBC 6.3 k/uL (3.8-10.6)
--- NOTE | 2023-12-07 15:40 | ED ---
General Adult HPI - General Chief complaint: Back Pain/Injury Stated complaint: BACK PAIN Time Seen by Provider: 12/07/23 14:28 Source: patient, RN notes reviewed Mode of arrival: ambulatory Limitations: no limitations - History of Present Illness Initial comments: This is a 48-year-old male who presents to the emergency department for neuropathy and back pain. Patient reports a history of chronic back pain which is primarily left-sided. He used to treat this with aspirin, which was mildly effective, however he ran out. Denies any loss of bowel/bladder control or saddle anesthesia. Also denies any new injuries. Also reports pain and burning in his hands and feet due to his uncontrolled diabetes. Additionally, patient is saying that his hair is falling out and he feels like he is "swallowing dirt", which is getting stuck in his throat. - Related Data Previous Rx's Medication Instructions Recorded Insulin Detemir (Levemir) [Levemir] 30 unit SQ HS #7 each 09/02/23 metFORMIN HCL ER [Glucophage XR] 500 mg PO DAILY #60 tab 09/02/23 sitaGLIPtin PHOSPHATE [Januvia] 25 mg PO DAILY #60 tab 09/02/23 Aspirin 81 mg PO DAILY #90 tab 11/12/23 Atorvastatin [Lipitor] 40 mg PO DAILY #90 tab 11/12/23 Clopidogrel [Plavix] 75 mg PO DAILY #90 tab 11/12/23 Isosorbide Mononitrate ER [Imdur] 30 mg PO DAILY #90 tab 11/12/23 Losartan [Cozaar] 100 mg PO DAILY #90 tab 11/12/23 carvediloL [Coreg] 6.25 mg PO BID-W/MEALS #90 tab 11/12/23 Famotidine [Pepcid] 20 mg PO BID #28 tablet 11/26/23 Lidocaine 5% Patch [Lidoderm 5% 1 patch TOPICAL DAILY PRN #30 patch 12/07/23 Patch] Mag Hydrox/Al Hydrox/Simeth 10 - 20 ml PO QID PRN #473 ml 12/07/23 [Maalox] Meloxicam [Mobic] 15 mg PO DAILY #10 tab 12/07/23 Allergies Allergy/AdvReac Type Severity Reaction Status Date / Time blue dye AdvReac Rapid Verified 12/07/23 14:22 Heart Rate Review of Systems ROS Statement: Those systems with pertinent positive or pertinent negative responses have been documented in the HPI. ROS Other: All systems not noted in ROS Statement are negative. Past Medical History Past Medical History: Coronary Artery Disease (CAD), Diabetes Mellitus Additional Past Medical History / Comment(s): pt type 1 diabetes Last Myocardial Infarction Date:: 2021 History of Any Multi-Drug Resistant Organisms: None Reported Past Surgical History: Orthopedic Surgery Additional Past Surgical History / Comment(s): Knee surgey 1993 Past Anesthesia/Blood Transfusion Reactions: No Reported Reaction Past Psychological History: Schizophrenia Smoking Status: Current every day smoker, Vaper Past Alcohol Use History: Occasional Past Drug Use History: Marijuana - Past Family History Father Family Medical History: Coronary Artery Disease (CAD) General Exam Limitations: no limitations General appearance: alert, in no apparent distress Head exam: Present: atraumatic, normocephalic, normal inspection Respiratory exam: Present: normal lung sounds bilaterally. Absent: respiratory distress, wheezes, rales, rhonchi, stridor Cardiovascular Exam: Present: regular rate, normal rhythm, normal heart sounds. Absent: systolic murmur, diastolic murmur, rubs, gallop, clicks Back exam: Present: tenderness (Left mid to lower back) Neurological exam: Present: alert, oriented X3, CN II-XII intact Psychiatric exam: Present: normal affect, normal mood Skin exam: Present: warm, dry, intact, normal color. Absent: rash Course Vital Signs 12/07/23 12/07/23 12/07/23 14:20 16:25 17:39 Temperature 97.8 F 97.9 F 98.1 F Pulse Rate 81 86 76 Respiratory 20 18 18 Rate Blood Pressure 140/92 136/86 138/76 O2 Sat by Pulse 100 95 99 Oximetry Medical Decision Making - Medical Decision Making This is a 48-year-old male who presents to the emergency department for back pain and neuropathy. Was pt. sent in by a medical professional or institution? @ -No Did you speak to anyone other than the patient for history? @ -No Did you review nursing and triage notes? @ -Yes, and I agree, it is accurate with regards to the patient's symptoms. Were old charts reviewed? @ -No Differential Diagnosis? @ -Differential Back Pain: Strain, zoster, cauda equina syndrome, epidural abscess, vertebral osteomyelitis, discitis, fracture, subluxation, disc herniation, DJD, spinal stenosis, dissection, AAA, pancreatitis, peptic ulcer disease, pyelonephritis, kidney stone, this is not meant to be an all-inclusive list. EKG interpreted by me (3pts min.)? @ -Not obtained X-rays interpreted by me (1pt min.)? @ -Not obtained CT interpreted by me (1pt min.)? @ -CT scan of the abdomen and pelvis obtained. My interpretation identifies no evidence of a ureteral calculus. U/S interpreted by me (1pt. min.)? @ -Not obtained What testing was considered but not performed? (CT, X-rays, U/S, labs)? Why? @ -None What meds were considered but not given? Why? @ -None Did you discuss the management of the patient with other professionals? @ -No Did you reconcile home meds? @ -No Was smoking cessation discussed for >3mins.? @ -No Was critical care preformed (if so, how long)? @ -No Were there social determinants of health that impacted care today? How? (Homelessness, low income, unemployed, alcoholism, drug addiction, transportation, low edu. Level, literacy, decrease access to med. care, correction, rehab)? @ -No Was there de-escalation of care discussed even if they declined? (Discuss DNR or withdrawal of care, Hospice)? @ -No What co-morbidities impacted this encounter? (DM, HTN, Smoking, COPD, CAD, Cancer, CVA, Hep., AIDS, mental health diagnosis, sleep apnea, morbid obesity)? @ -DM Was patient admitted / discharged? @ -Discharged. Lab work obtained revealing an elevated glucose of 327 and was otherwise unremarkable. This is consistent with the patient's hx of diabetes. 7 units of regular insulin administered. Urinalysis does demonstrate a large amount of blood. Given the left mid back pain with hematuria, computed tomography scan of the abdomen and pelvis was obtained. No evidence of a ureteral calculus was identified. His symptoms were well controlled with Toradol, a lidocaine patch, Norflex, and a GI cocktail. Patient then requested discharge home. Advised the patient that he needs to work on control of his diabetes, as this is likely contributing to the peripheral neuropathy. Rx for Mobic, lidocaine patches, and Maalox provided with dosing instructions reviewed. Otherwise advised follow-up with his primary care provider. Undiagnosed new problem with uncertain prognosis? @ -None Drug Therapy requiring intensive monitoring for toxicity (Heparin, Nitro, Insulin, Cardizem)? @ -None Were any procedures done? @ -None Diagnosis/symptom? @ -Back pain, peripheral neuropathy Acute, or Chronic, or Acute on Chronic? @ -Chronic Uncomplicated (without systemic symptoms) or Complicated (systemic symptoms)? @ -Uncomplicated Side effects of treatment? @ -None Exacerbation, Progression, or Severe Exacerbation] @ -Exacerbation Poses a threat to life or bodily function? @ -No Return precautions reviewed in depth, the patient is instructed to return to the emergency department with any new, worsening, or concerning symptoms. Patient verbalized understanding. This case was discussed in detail with the attending ED physician, Dr. Patrick. Presentation, findings, and treatment plan discussed in detail as well. - Lab Data Result diagrams: 12/07/23 15:28 12/07/23 15:28 Lab Results 12/07/23 12/07/23 12/07/23 Range/Units 15:28 15: 15:29 WBC 6.3 (3.8-10.6) k/uL RBC 5.08 (4.30-5.90) m/uL Hgb 15.3 (13.0-17.5) gm/dL Hct 45.6 (39.0-53.0) % MCV 89.9 (80.0-100.0) fL MCH 30.1 (25.0-35.0) pg MCHC 33.5 (31.0-37.0) g/dL RDW 13.1 (11.5-15.5) % Plt Count 222 (150-450) k/uL MPV 8.8 Neutrophils % 54 % Lymphocytes % 34 % Monocytes % 6 % Eosinophils % 4 % Basophils % 1 % Neutrophils # 3.4 (1.3-7.7) k/uL Lymphocytes # 2.1 (1.0-4.8) k/uL Monocytes # 0.4 (0-1.0) k/uL Eosinophils # 0.2 (0-0.7) k/uL Basophils # 0.0 (0-0.2) k/uL Sodium 138 (137-145) mmol/L Potassium 4.1 (3.5-5.1) mmol/L Chloride 104 (98-107) mmol/L Carbon Dioxide 30 (22-30) mmol/L Anion Gap 4 mmol/L BUN 16 (9-20) mg/dL Creatinine 0.96 (0.66-1.25) mg/dL Est GFR (CKD-EPI)AfAm >90 (>60 ml/min/1.73 sqM) Est GFR (CKD-EPI)NonAf >90 (>60 ml/min/1.73 sqM) Glucose 327 H (74-99) mg/dL Calcium 9.1 (8.4-10.2) mg/dL Magnesium 2.0 (1.6-2.3) mg/dL Total Bilirubin 0.7 (0.2-1.3) mg/dL AST 19 (17-59) U/L ALT 16 (4-49) U/L Alkaline Phosphatase 116 (38-126) U/L Total Protein 6.1 L (6.3-8.2) g/dL Albumin 3.3 L (3.5-5.0) g/dL TSH 0.809 (0.465-4.680) mIU/L Urine Color Light Yellow Urine Appearance Clear (Clear) Urine pH 6.0 (5.0-8.0) Ur Specific [place] 1.033 (1.001-1.035) Urine Protein 3+ H (Negative) Urine Glucose (UA) 4+ H (Negative) Urine Ketones Trace H (Negative) Urine Blood Moderate H (Negative) Urine Nitrite Negative (Negative) Urine Bilirubin Negative (Negative) Urine Urobilinogen <2.0 (<2.0) mg/dL Ur Leukocyte Esterase Negative (Negative) Urine RBC 6 H (0-5) /hpf Urine WBC 1 (0-5) /hpf Ur Squamous Epith Cells <1 (0-4) /hpf Hyaline Casts 6 H (0-2) /lpf Urine Mucus Occasional H (None) /hpf - Radiology Data Radiology results: report reviewed, image reviewed Disposition Clinical Impression: Chronic back pain, Peripheral neuropathy, Sore throat Disposition: HOME SELF-CARE Instructions (If sedation given, give patient instructions): Pharyngitis (ED), Diabetic Peripheral Neuropathy (ED), Peripheral Neuropathy (ED), Back Pain (ED) Additional Instructions: Return to the emergency department with any new, worsening, or concerning symptoms. Try taking the Mobic daily to see if that helps with your back pain. Take this with Tylenol, do not take it with any other anti-inflammatories such as ibuprofen. Apply the lidocaine patches to the back daily as well. You can also use the Maalox up to 4 times daily to help with the sore throat and heartburn. Follow up with your primary care provider in 1-2 days. Prescriptions: Lidocaine 5% Patch [Lidoderm 5% Patch] 1 patch TOPICAL DAILY PRN #30 patch PRN Reason: Pain Mag Hydrox/Al Hydrox/Simeth [Maalox] 10 - 20 ml PO QID PRN #473 ml PRN Reason: Heartburn Meloxicam [Mobic] 15 mg PO DAILY #10 tab Is patient prescribed a controlled substance at d/c from ED?: No Referrals: None,Stated [Primary Care Provider] - 1-2 days Time of Disposition: 17:39
[2023-12-07 15:47] LABS: ALT 16 U/L (4-49); AST 19 U/L (17-59); African American GFR (CKD) >90 (>60 ml/min/1.73 sqM); Albumin 3.3 g/dL (3.5-5.0); Alkaline Phosphatase 116 U/L (38-126); Anion Gap 4 mmol/L; Blood Urea Nitrogen 16 mg/dL (9-20); Calcium 9.1 mg/dL (8.4-10.2); Carbon Dioxide 30 mmol/L (22-30); Chloride 104 mmol/L (98-107); Glucose 327 mg/dL (74-99); Non-African American GFR(CKD) >90 (>60 ml/min/1.73 sqM); Potassium 4.1 mmol/L (3.5-5.1); Sodium 138 mmol/L (137-145); Total Bilirubin 0.7 mg/dL (0.2-1.3); Total Protein 6.1 g/dL (6.3-8.2)
[2023-12-07 15:49] LABS: Appearance,Urine Clear (Clear); Bilirubin,Urine Negative (Negative); Blood,Urine Moderate (Negative); Color,Urine Light Yellow; Glucose,Urine (UA) 4+ (Negative); Hyaline Casts,Urine 6 /lpf (0-2); Ketones,Urine Trace (Negative); Leukocyte Esterase,Urine Negative (Negative); Mucus,Urine Occasional /hpf; Nitrite,Urine Negative (Negative); Protein,Urine 3+ (Negative); RBC,Urine 6 /hpf (0-5); Specific Gravity,Urine 1.033 (1.001-1.035); Squamous Epithelial Cell,Urine <1 /hpf (0-4); Urobilinogen,Urine <2.0 mg/dL (<2.0); WBC,Urine 1 /hpf (0-5)
[2023-12-07] MEDS: INSULIN REGULAR 100 UNIT/ML VIAL (IM/SQ) SQ ONE (16:22)
[2023-12-07 16:49] VITALS: RESP 18
--- NOTE | 2023-12-07 17:09 | CT ---
EXAMINATION TYPE: CT abdomen pelvis wo con CT DLP: 975.9 mGycm, Automated exposure control for dose reduction was used. DATE OF EXAM: 12/07/2023 4:33 PM COMPARISON: 05/12/2023 CLINICAL INDICATION:Male, 48 years old with history of Left flank pain, hematuria; Left flank pain, h ematuria TECHNIQUE: Axial CT abdomen pelvis wo con;Sagittal and coronal reformats were created on a separate workstation. Contrast used: mL of , (none if empty) Oral contrast used: without Oral Contrast (none if empty) FINDINGS: LOWER CHEST: Unremarkable ABDOMEN LIVER: Unremarkable GALLBLADDER AND BILE DUCTS: Unremarkable. PANCREAS: Unremarkable. SPLEEN: Unremarkable. ADRENAL GLANDS: Unremarkable. KIDNEYS AND URETERS: No evidence of hydronephrosis or renal calculus. The ureters are unremarkable. PELVIS BLADDER: Unremarkable REPRODUCTIVE: Unremarkable. ABDOMEN & PELVIS STOMACH AND BOWEL: No evidence of bowel obstruction. The appendix is normal. PERITONEUM/RETROPERITONEUM: No evidence of pneumoperitoneum or free fluid. VASCULATURE: No evidence of aortic aneurysm. MUSCULOSKELETAL: No acute osseous abnormalities LYMPH NODES: No gross evidence for lymphadenopathy. SOFT TISSUE/ABDOMINAL WALL: Small bilateral fat-containing inguinal inguinal hernias. Fat-containing buccal hernia. IMPRESSION: No evidence for obstructive uropathy or renal calculus. No evidence for diverticulitis. No left sided abdominal process to explain the patient's pain.
[2023-12-07] MEDS: IBUPROFEN 600 MG STARTER PACK 4 TAB BTL PO STA (17:38)
[2023-12-07 17:45] VITALS: BP 138/76; PULSE 76; TEMP 98.1
== END 2023-12-07 18:01 | disposition home or self-care (01) ==
LOC: EC 14:14
DX: G89.29 Other chronic pain (principal); M54.6 Pain in thoracic spine; M54.50 Low back pain, unspecified; E10.42 Type 1 diabetes mellitus with diabetic polyneuropathy; J02.9 Acute pharyngitis, unspecified; I25.2 Old myocardial infarction; I25.10 Atherosclerotic heart disease of native coronary artery without angina pectoris; F17.290 Nicotine dependence, other tobacco product, uncomplicated; F12.90 Cannabis use, unspecified, uncomplicated; Z91.041 Radiographic dye allergy status
CPT/HCPCS: 99284; 96372 ×2; 36415; 80053; 84443; 83735; 85025; 81001; 74176; J2360; J1885

== ENCOUNTER 2023-12-09 21:37 | Emergency (ER) | payer OTHER ==
[2023-12-09 22:03] LABS: Glucose,Whole Blood 354 mg/dL (70-110)
--- NOTE | 2023-12-09 22:12 | ED ---
Weakness HPI - General Chief complaint: Upper Respiratory Infection Stated complaint: SOB Time Seen by Provider: 12/09/23 21:48 Source: patient, RN notes reviewed, old records reviewed Mode of arrival: ambulatory Limitations: no limitations - History of Present Illness Initial comments: This is a 48-year-old male to the ER for evaluation of weakness today. Patient comes in with shortness of breath concern for his breathing and recently elevated blood sugar. Patient is significantly anxious here in the emergency department with no complaints of headache chest pain shortness of breath abdominal pain. No travel history or sick contacts. MD Complaint: generalized weakness, lack of energy, difficulty walking (Shortness of breath) -: days(s) Location: generalized Severity: moderate Severity scale (1-10): 4 Quality: tingling, numbness Consistency: constant Improves with: none Worsens with: none Context: recent illness, history of similar Associated Symptoms: chest pain (Shortness of breath), shortness of breath - Related Data Previous Rx's Medication Instructions Recorded Insulin Detemir (Levemir) [Levemir] 30 unit SQ HS #7 each 09/02/23 Aspirin 81 mg PO DAILY #90 tab 11/12/23 Atorvastatin [Lipitor] 40 mg PO DAILY #90 tab 11/12/23 Famotidine [Pepcid] 20 mg PO BID #28 tablet 11/26/23 Mag Hydrox/Al Hydrox/Simeth 10 - 20 ml PO QID PRN #473 ml 12/07/23 [Maalox] Clopidogrel [Plavix] 75 mg PO DAILY #90 tab 12/14/23 Losartan [Cozaar] 50 mg PO DAILY #90 tab 12/14/23 carvediloL [Coreg*] 12.5 mg PO BID-W/MEALS tab 12/14/23 Allergies Allergy/AdvReac Type Severity Reaction Status Date / Time blue dye AdvReac Rapid Verified 12/13/23 14:18 Heart Rate Review of Systems ROS Statement: Those systems with pertinent positive or pertinent negative responses have been documented in the HPI. ROS Other: All systems not noted in ROS Statement are negative. Past Medical History Past Medical History: Coronary Artery Disease (CAD), Diabetes Mellitus Additional Past Medical History / Comment(s): pt type 1 diabetes Last Myocardial Infarction Date:: 2021 History of Any Multi-Drug Resistant Organisms: None Reported Past Surgical History: Orthopedic Surgery Additional Past Surgical History / Comment(s): Knee surgey 1993 Past Anesthesia/Blood Transfusion Reactions: No Reported Reaction Past Psychological History: Schizophrenia Smoking Status: Current every day smoker, Vaper Past Alcohol Use History: Occasional Past Drug Use History: Marijuana - Past Family History Father Family Medical History: Coronary Artery Disease (CAD) General Exam Limitations: no limitations General appearance: alert, in no apparent distress Head exam: Present: atraumatic, normocephalic, normal inspection Eye exam: Present: normal appearance, PERRL, EOMI. Absent: scleral icterus, conjunctival injection, periorbital swelling ENT exam: Present: normal exam, mucous membranes moist Neck exam: Present: normal inspection. Absent: tenderness, meningismus, lymphadenopathy Respiratory exam: Present: normal lung sounds bilaterally. Absent: respiratory distress, wheezes, rales, rhonchi, stridor Cardiovascular Exam: Present: regular rate, normal rhythm, normal heart sounds. Absent: systolic murmur, diastolic murmur, rubs, gallop, clicks GI/Abdominal exam: Present: soft, normal bowel sounds. Absent: distended, tenderness, guarding, rebound, rigid Extremities exam: Present: normal inspection, full ROM, normal capillary refill. Absent: tenderness, pedal edema, joint swelling, calf tenderness Back exam: Present: normal inspection Neurological exam: Present: alert, oriented X3, CN II-XII intact Psychiatric exam: Present: normal affect, normal mood Skin exam: Present: warm, dry, intact, normal color. Absent: rash Course Vital Signs 12/09/23 12/09/23 12/10/23 21:38 21:46 00:11 Temperature 98.3 F 97.7 F Pulse Rate 91 93 75 Respiratory 18 18 20 Rate Blood Pressure 213/121 180/90 O2 Sat by Pulse 100 100 Oximetry 12/10/23 01:32 Temperature Pulse Rate 80 Respiratory 18 Rate Blood Pressure 171/93 O2 Sat by Pulse 99 Oximetry - Reevaluation(s) Reevaluation #1: 12/10/23 01:14 medical record is reviewed Reevaluation #2: 12/10/23 01:15 patients symptoms are improved Reevaluation #3: 12/10/23 01:15 Patient informed of results and questions answered Reevaluation #4: Was pt. sent in by a medical professional or institution (, PA, OUTDOOR POWER EQUIPMENT MECHANIC, urgent care, hospital, or snf...) When possible be specific @ -no Did you speak to anyone other than the patient for history (EMS, parent, family, police, friend...)? What history was obtained from this source @ -no Did you review nursing and triage notes (agree or disagree)? Why? @ -agree Are old charts reviewed (outside hosp., previous admission, EMS record, old EKG, old radiological studies, urgent care reports/EKG's, snf records)? Report findings @ -yes Differential Diagnosis (chest pain, altered mental status, abdominal pain women, abdominal pain men, vaginal bleeding, weakness, fever, dyspnea, syncope, hea dache, dizziness, GI bleed, back pain, seizure, CVA, palpatations, mental health, musculoskeletal)? @ -prior EKG interpreted by me (3pts min.). @ -yes X-rays interpreted by me (1pt min.). @ -yes negative for acute disease CT interpreted by me (1pt min.). @ -no U/S interpreted by me (1pt. min.). @ -no What testing was considered but not performed or refused? (CT, X-rays, U/S, labs)? Why? @ -none What meds were considered but not given or refused? Why? @ -none Did you discuss the management of the patient with other professionals (professionals i.e. , PA, OUTDOOR POWER EQUIPMENT MECHANIC, lab, RT, psych nurse, 7th grade social studies teacher, squad sergeant, teacher, staff nuclear weapons officer, case packer and sealer)? Give summary @ -no Was smoking cessation discussed for >3mins.? @ -no Was critical care preformed (if so, how long)? @ -no Were there social determinants of health that impacted care today? How? (Homelessness, low income, unemployed, alcoholism, drug addiction, transportation, low edu. Level, literacy, decrease access to med. care, alf, rehab)? @ -none Was there de-escalation of care discussed even if they declined (Discuss DNR or withdrawal of care, Hospice)? DNR status @ -no What co-morbidities impacted this encounter? (DM, HTN, Smoking, COPD, CAD, Cancer, CVA, ARF, Chemo, Hep., AIDS, mental health diagnosis, sleep apnea, mo rbid obesity)? @ -none Was patient admitted / discharged? Hospital course, mention meds given and r oute, prescriptions, significant lab abnormalities, going to OR and other pertinent info. @ - 48 male to ER for evaluation of shortness of breath with elevated blood sugar. Blood sugar improved here in the ER no findings or cause of shortness of breath found patient feels significant improved does admit to likely anxiety with panic attack and can be discharged home discharge Undiagnosed new problem with uncertain prognosis? @ -no Drug Therapy requiring intensive monitoring for toxicity (Heparin, Nitro, Insulin, Cardizem)? @ -no Were any procedures done? @ -no Diagnosis/sympto elevated blood sugar shortness of breath and chest pain m? @ - Acute, or Chronic, or Acute on Chronic? @ -Acute Uncomplicated (without systemic symptoms) or Complicated (systemic symptoms)? @ -Complicated Side effects of treatment? @ -no Exacerbation, Progression, or Severe Exacerbation? @ -exacerbation Poses a threat to life or bodily function? How? (Chest pain, [place], [place], pneumonia, PE, COPD, DKA, ARF, appy, cholecystitis, CVA, Diverticulitis, Homicidal, Suicidal, threat to staff... and all critical care pts) @ -no Reevaluation #5: Differential Dyspnea: Coronary syndrome, arrhythmia, tamponade, asthma, COPD, pulmonary embolism, pneumonia, pneumothorax, pulmonary effusion, anaphylaxis, diabetic ketoacidosis, flailed chest, pulmonary contusion, diaphragmatic rupture, anemia, neuromuscular, this is not meant to be an all-inclusive list. EKG Findings - EKG Comments: EKG Findings:: EKG is sinus 76 DC 161 QRS 89 QTc 412 - EKG Results: EKG: interpreted by L[facility]TAD Medical Decision Making - Medical Decision Making 48 male to ER for evaluation of shortness of breath with elevated blood sugar. Blood sugar improved here in the ER no findings or cause of shortness of breath found patient feels significant improved does admit to likely anxiety with panic attack and can be discharged home - Lab Data Result diagrams: 12/09/23 22:22 12/09/23 22:22 Lab Results 12/09/23 12/09/23 12/09/23 Range/Units 21:42 21:58 22:22 WBC 7.5 (3.8-10.6) k/uL RBC 4.75 (4.30-5.90) m/uL Hgb 14.3 (13.0-17.5) gm/dL Hct 42.2 (39.0-53.0) % MCV 89.0 (80.0-100.0) fL MCH 30.1 (25.0-35.0) pg MCHC 33.9 (31.0-37.0) g/dL RDW 13.1 (11.5-15.5) % Plt Count 234 (150-450) k/uL MPV 9.0 Neutrophils % 50 % Lymphocytes % 39 % Monocytes % 5 % Eosinophils % 4 % Basophils % 1 % Neutrophils # 3.8 (1.3-7.7) k/uL Lymphocytes # 2.9 (1.0-4.8) k/uL Monocytes # 0.4 (0-1.0) k/uL Eosinophils # 0.3 (0-0.7) k/uL Basophils # 0.0 (0-0.2) k/uL PT (10.0-12.5) sec INR (<1.2) APTT (22.0-30.0) sec VBG pH (7.31-7.41) VBG pCO2 (37-51) mmHg VBG HCO3 (24-28) mmol/L Sodium (137-145) mmol/L Potassium (3.5-5.1) mmol/L Chloride (98-107) mmol/L Carbon Dioxide (22-30) mmol/L Anion Gap mmol/L BUN (9-20) mg/dL Creatinine (0.66-1.25) mg/dL Est GFR (CKD-EPI)AfAm (>60 ml/min/1.73 sqM) Est GFR (CKD-EPI)NonAf (>60 ml/min/1.73 sqM) Glucose (74-99) mg/dL POC Glucose (mg/dL) 354 H (70-110) mg/dL POC Glu Records Clerk ID Cande Archer Lactic Ac Sepsis Rflx Plasma Lactic Acid Alirio (0.7-2.0) mmol/L Calcium (8.4-10.2) mg/dL Phosphorus (2.5-4.5) mg/dL Magnesium (1.6-2.3) mg/dL Total Bilirubin (0.2-1.3) mg/dL AST (17-59) U/L ALT (4-49) U/L Alkaline Phosphatase (38-126) U/L Troponin I (0.000-0.034) ng/mL NT-Pro-B Natriuret Pep pg/mL Total Protein (6.3-8.2) g/dL Albumin (3.5-5.0) g/dL TSH (0.465-4.680) mIU/L Urine Color Urine Appearance (Clear) Urine pH (5.0-8.0) Ur Specific [place] (1.001-1.035) Urine Protein (Negative) Urine Glucose (UA) (Negative) Urine Ketones (Negative) Urine Blood (Negative) Urine Nitrite (Negative) Urine Bilirubin (Negative) Urine Urobilinogen (<2.0) mg/dL Ur Leukocyte Esterase (Negative) Urine RBC (0-5) /hpf Urine WBC (0-5) /hpf Serum Alcohol mg/dL Influenza Type A (PCR) Not Detected (Not Detectd) Influenza Type B (PCR) Not Detected (Not Detectd) RSV (PCR) Not Detected (Not Detectd) SARS-CoV-2 (PCR) Not Detected (Not Detectd) 12/09/23 12/09/23 12/09/23 Range/Units 22:22 22:22 22:22 WBC (3.8-10.6) k/uL RBC (4.30-5.90) m/uL Hgb (13.0-17.5) gm/dL Hct (39.0-53.0) % MCV (80.0-100.0) fL MCH (25.0-35.0) pg MCHC (31.0-37.0) g/dL RDW (11.5-15.5) % Plt Count (150-450) k/uL MPV Neutrophils % % Lymphocytes % % Monocytes % % Eosinophils % % Basophils % % Neutrophils # (1.3-7.7) k/uL Lymphocytes # (1.0-4.8) k/uL Monocytes # (0-1.0) k/uL Eosinophils # (0-0.7) k/uL Basophils # (0-0.2) k/uL PT (10.0-12.5) sec INR (<1.2) APTT (22.0-30.0) sec VBG pH (7.31-7.41) VBG pCO2 (37-51) mmHg VBG HCO3 (24-28) mmol/L Sodium 135 L (137-145) mmol/L Potassium 4.9 (3.5-5.1) mmol/L Chloride 105 (98-107) mmol/L Carbon Dioxide 26 (22-30) mmol/L Anion Gap 4 mmol/L BUN 15 (9-20) mg/dL Creatinine 1.01 (0.66-1.25) mg/dL Est GFR (CKD-EPI)AfAm >90 (>60 ml/min/1.73 sqM) Est GFR (CKD-EPI)NonAf 88 (>60 ml/min/1.73 sqM) Glucose 321 H (74-99) mg/dL POC Glucose (mg/dL) (70-110) mg/dL POC Glu Records Clerk ID Lactic Ac Sepsis Rflx Plasma Lactic Acid Alirio 2.1 H* (0.7-2.0) mmol/L Calcium 9.0 (8.4-10.2) mg/dL Phosphorus 2.8 (2.5-4.5) mg/dL Magnesium 2.1 (1.6-2.3) mg/dL Total Bilirubin 1.1 (0.2-1.3) mg/dL AST 34 (17-59) U/L ALT 17 (4-49) U/L Alkaline Phosphatase 106 (38-126) U/L Troponin I (0.000-0.034) ng/mL NT-Pro-B Natriuret Pep 299 pg/mL Total Protein 6.4 (6.3-8.2) g/dL Albumin 3.4 L (3.5-5.0) g/dL TSH 0.955 (0.465-4.680) mIU/L Urine Color Colorless Urine Appearance Clear (Clear) Urine pH 7.0 (5.0-8.0) Ur Specific [place] 1.020 (1.001-1.035) Urine Protein 3+ H (Negative) Urine Glucose (UA) 4+ H (Negative) Urine Ketones Negative (Negative) Urine Blood Small H (Negative) Urine Nitrite Negative (Negative) Urine Bilirubin Negative (Negative) Urine Urobilinogen <2.0 (<2.0) mg/dL Ur Leukocyte Esterase Negative (Negative) Urine RBC 6 H (0-5) /hpf Urine WBC 1 (0-5) /hpf Serum Alcohol <10 mg/dL Influenza Type A (PCR) (Not Detectd) Influenza Type B (PCR) (Not Detectd) RSV (PCR) (Not Detectd) SARS-CoV-2 (PCR) (Not Detectd) 12/09/23 12/09/23 12/09/23 Range/Units 22:22 22:22 23:16 WBC (3.8-10.6) k/uL RBC (4.30-5.90) m/uL Hgb (13.0-17.5) gm/dL Hct (39.0-53.0) % MCV (80.0-100.0) fL MCH (25.0-35.0) pg MCHC (31.0-37.0) g/dL RDW (11.5-15.5) % Plt Count (150-450) k/uL MPV Neutrophils % % Lymphocytes % % Monocytes % % Eosinophils % % Basophils % % Neutrophils # (1.3-7.7) k/uL Lymphocytes # (1.0-4.8) k/uL Monocytes # (0-1.0) k/uL Eosinophils # (0-0.7) k/uL Basophils # (0-0.2) k/uL PT (10.0-12.5) sec INR (<1.2) APTT (22.0-30.0) sec VBG pH 7.43 H (7.31-7.41) VBG pCO2 42 (37-51) mmHg VBG HCO3 28 (24-28) mmol/L Sodium (137-145) mmol/L Potassium (3.5-5.1) mmol/L Chloride (98-107) mmol/L Carbon Dioxide (22-30) mmol/L Anion Gap mmol/L BUN (9-20) mg/dL Creatinine (0.66-1.25) mg/dL Est GFR (CKD-EPI)AfAm (>60 ml/min/1.73 sqM) Est GFR (CKD-EPI)NonAf (>60 ml/min/1.73 sqM) Glucose (74-99) mg/dL POC Glucose (mg/dL) (70-110) mg/dL POC Glu Records Clerk ID Lactic Ac Sepsis Rflx Y Plasma Lactic Acid Alirio (0.7-2.0) mmol/L Calcium (8.4-10.2) mg/dL Phosphorus (2.5-4.5) mg/dL Magnesium (1.6-2.3) mg/dL Total Bilirubin (0.2-1.3) mg/dL AST (17-59) U/L ALT (4-49) U/L Alkaline Phosphatase (38-126) U/L Troponin I 0.013 (0.000-0.034) ng/mL NT-Pro-B Natriuret Pep pg/mL Total Protein (6.3-8.2) g/dL Albumin (3.5-5.0) g/dL TSH (0.465-4.680) mIU/L Urine Color Urine Appearance (Clear) Urine pH (5.0-8.0) Ur Specific [place] (1.001-1.035) Urine Protein (Negative) Urine Glucose (UA) (Negative) Urine Ketones (Negative) Urine Blood (Negative) Urine Nitrite (Negative) Urine Bilirubin (Negative) Urine Urobilinogen (<2.0) mg/dL Ur Leukocyte Esterase (Negative) Urine RBC (0-5) /hpf Urine WBC (0-5) /hpf Serum Alcohol mg/dL Influenza Type A (PCR) (Not Detectd) Influenza Type B (PCR) (Not Detectd) RSV (PCR) (Not Detectd) SARS-CoV-2 (PCR) (Not Detectd) 12/09/23 Range/Units 23:41 WBC (3.8-10.6) k/uL RBC (4.30-5.90) m/uL Hgb (13.0-17.5) gm/dL Hct (39.0-53.0) % MCV (80.0-100.0) fL MCH (25.0-35.0) pg MCHC (31.0-37.0) g/dL RDW (11.5-15.5) % Plt Count (150-450) k/uL MPV Neutrophils % % Lymphocytes % % Monocytes % % Eosinophils % % Basophils % % Neutrophils # (1.3-7.7) k/uL Lymphocytes # (1.0-4.8) k/uL Monocytes # (0-1.0) k/uL Eosinophils # (0-0.7) k/uL Basophils # (0-0.2) k/uL PT 9.9 L (10.0-12.5) sec INR 0.9 (<1.2) APTT 21.2 L (22.0-30.0) sec VBG pH (7.31-7.41) VBG pCO2 (37-51) mmHg VBG HCO3 (24-28) mmol/L Sodium (137-145) mmol/L Potassium (3.5-5.1) mmol/L Chloride (98-107) mmol/L Carbon Dioxide (22-30) mmol/L Anion Gap mmol/L BUN (9-20) mg/dL Creatinine (0.66-1.25) mg/dL Est GFR (CKD-EPI)AfAm (>60 ml/min/1.73 sqM) Est GFR (CKD-EPI)NonAf (>60 ml/min/1.73 sqM) Glucose (74-99) mg/dL POC Glucose (mg/dL) (70-110) mg/dL POC Glu Records Clerk ID Lactic Ac Sepsis Rflx Plasma Lactic Acid Alirio (0.7-2.0) mmol/L Calcium (8.4-10.2) mg/dL Phosphorus (2.5-4.5) mg/dL Magnesium (1.6-2.3) mg/dL Total Bilirubin (0.2-1.3) mg/dL AST (17-59) U/L ALT (4-49) U/L Alkaline Phosphatase (38-126) U/L Troponin I (0.000-0.034) ng/mL NT-Pro-B Natriuret Pep pg/mL Total Protein (6.3-8.2) g/dL Albumin (3.5-5.0) g/dL TSH (0.465-4.680) mIU/L Urine Color Urine Appearance (Clear) Urine pH (5.0-8.0) Ur Specific [place] (1.001-1.035) Urine Protein (Negative) Urine Glucose (UA) (Negative) Urine Ketones (Negative) Urine Blood (Negative) Urine Nitrite (Negative) Urine Bilirubin (Negative) Urine Urobilinogen (<2.0) mg/dL Ur Leukocyte Esterase (Negative) Urine RBC (0-5) /hpf Urine WBC (0-5) /hpf Serum Alcohol mg/dL Influenza Type A (PCR) (Not Detectd) Influenza Type B (PCR) (Not Detectd) RSV (PCR) (Not Detectd) SARS-CoV-2 (PCR) (Not Detectd) - EKG Data -: EKG Interpreted by Me - Radiology Data Radiology results: report reviewed (Chest x-ray is negative for acute disease), image reviewed Disposition Clinical Impression: Atypical chest pain, Anxiety, Dyspnea, Hyperglycemia Disposition: HOME SELF-CARE Condition: Good Is patient prescribed a controlled substance at d/c from ED?: No Referrals: None,Stated [Primary Care Provider] - 1-2 days
[2023-12-09 22:18] VITALS: TEMP 97.7
[2023-12-09] MEDS: LORazepam 2 MG/ML INJ IV STA (22:30)
[2023-12-09] MEDS: ONDANSETRON 4 MG/2 ML VIAL IVP STA (22:30)
[2023-12-09] MEDS: SODIUM CHLORIDE 0.9% 1,000 ML IV STA ×2 (22:30→22:35)
[2023-12-09] MEDS: SODIUM CHLORIDE 0.9% 500 ML 500 ML IV STA (22:31)
[2023-12-09 22:34] LABS: VBG PH 7.43 (7.31-7.41)
[2023-12-09 22:36] LABS: Basophils % (A) 1 %; Eosinophils # (A) 0.3 k/uL (0-0.7); Eosinophils % (A) 4 %; HCT 42.2 % (39.0-53.0); HGB 14.3 gm/dL (13.0-17.5); Lymphocytes # (A) 2.9 k/uL (1.0-4.8); Lymphocytes % (A) 39 %; MCH 30.1 pg (25.0-35.0); MCHC 33.9 g/dL (31.0-37.0); Monocytes # (A) 0.4 k/uL (0-1.0); Monocytes % (A) 5 %; Neutrophils # (A) 3.8 k/uL (1.3-7.7); Neutrophils % (A) 50 %; Platelet Count 234 k/uL (150-450); RBC 4.75 m/uL (4.30-5.90); RDW 13.1 % (11.5-15.5); WBC 7.5 k/uL (3.8-10.6)
--- NOTE | 2023-12-09 22:41 | XR ---
EXAMINATION TYPE: XR chest 1V portable DATE OF EXAM: 12/09/2023 COMPARISON: Prior chest x-ray November 14, 2023 HISTORY: Shortness of breath TECHNIQUE: Single frontal view of the chest is obtained. FINDINGS: There is no suspicious focal air space opacity, pleural effusion, or pneumothorax seen. T he cardiac silhouette size is stable and within normal limits. The osseous structures are intact. IMPRESSION: No acute process.
[2023-12-09 23:03] LABS: ALT 17 U/L (4-49); AST 34 U/L (17-59); African American GFR (CKD) >90 (>60 ml/min/1.73 sqM); Alcohol <10 mg/dL; Alkaline Phosphatase 106 U/L (38-126); Anion Gap 4 mmol/L; Blood Urea Nitrogen 15 mg/dL (9-20); Carbon Dioxide 26 mmol/L (22-30); Chloride 105 mmol/L (98-107); Glucose 321 mg/dL (74-99); Non-African American GFR(CKD) 88 (>60 ml/min/1.73 sqM); Sodium 135 mmol/L (137-145)
[2023-12-09 23:11] LABS: NT-Pro-B-Type Natriuretic Pept 299 pg/mL
[2023-12-09 23:16] LABS: Potassium 4.9 mmol/L (3.5-5.1)
[2023-12-09 23:17] LABS: Albumin 3.4 g/dL (3.5-5.0); Magnesium 2.1 mg/dL (1.6-2.3); Phosphorus 2.8 mg/dL (2.5-4.5); Total Bilirubin 1.1 mg/dL (0.2-1.3); Total Protein 6.4 g/dL (6.3-8.2)
[2023-12-10 00:06] LABS: Appearance,Urine Clear (Clear); Bilirubin,Urine Negative (Negative); Blood,Urine Small (Negative); Color,Urine Colorless; Glucose,Urine (UA) 4+ (Negative); Ketones,Urine Negative (Negative); Leukocyte Esterase,Urine Negative (Negative); Nitrite,Urine Negative (Negative); Protein,Urine 3+ (Negative); RBC,Urine 6 /hpf (0-5); Urobilinogen,Urine <2.0 mg/dL (<2.0); WBC,Urine 1 /hpf (0-5)
[2023-12-10 00:09] LABS: INR 0.9 (<1.2); Prothrombin Time 9.9 sec (10.0-12.5)
[2023-12-10 00:50] LABS: Partial Thromboplastin Time 21.2 sec (22.0-30.0)
[2023-12-10 02:00] VITALS: BP 171/93; PULSE 80; RESP 18
== END 2023-12-10 01:42 | disposition home or self-care (01) ==
LOC: EC 21:37
DX: R07.89 Other chest pain (principal); F41.9 Anxiety disorder, unspecified; R06.00 Dyspnea, unspecified; E11.65 Type 2 diabetes mellitus with hyperglycemia; I25.10 Atherosclerotic heart disease of native coronary artery without angina pectoris; I25.2 Old myocardial infarction; Z79.4 Long term (current) use of insulin; F17.290 Nicotine dependence, other tobacco product, uncomplicated; F12.90 Cannabis use, unspecified, uncomplicated; Z20.822 Contact with and (suspected) exposure to COVID-19; Z79.82 Long term (current) use of aspirin; Z91.041 Radiographic dye allergy status
CPT/HCPCS: 99285; 96374; 96375; 96361 ×3; 36415; 93005; 83880; 80053; 82803; 83605; 83735; 84100; 84443; 84484; 85025; 85610; 85730; 81001; 87636; 71045; G0480; J2060; J2405; 80320

== ENCOUNTER 2023-12-11 14:27 | Emergency (ER) | payer OTHER ==
[2023-12-11 14:53] VITALS: RESP 18; TEMP 97.7
--- NOTE | 2023-12-11 15:33 | ED ---
General Adult HPI - General Chief complaint: Chest Pain Stated complaint: Chest pain Time Seen by Provider: 12/11/23 14:55 Source: patient, RN notes reviewed, old records reviewed Mode of arrival: ambulatory - History of Present Illness Initial comments: This is a 48-year-old male who presents to the emergency department stating he has chest pain that sharp in nature and has been ongoing for over 3 weeks. Patient denies any fever or chills. Patient denies shortness of breath or difficulty breathing. Denies any nausea vomiting. Patient denies any diaphoretic episode. Patient states he has this pain all the time and comes in here and no one can find anything. Patient denies any abdominal pain patient has any back pain. Patient states he is on medications but does not know what they are. Patient states the pain is reproducible to press his chest wall on the left - Related Data Previous Rx's Medication Instructions Recorded Insulin Detemir (Levemir) [Levemir] 30 unit SQ HS #7 each 09/02/23 metFORMIN HCL ER [Glucophage XR] 500 mg PO DAILY #60 tab 09/02/23 sitaGLIPtin PHOSPHATE [Januvia] 25 mg PO DAILY #60 tab 09/02/23 Aspirin 81 mg PO DAILY #90 tab 11/12/23 Atorvastatin [Lipitor] 40 mg PO DAILY #90 tab 11/12/23 Clopidogrel [Plavix] 75 mg PO DAILY #90 tab 11/12/23 Isosorbide Mononitrate ER [Imdur] 30 mg PO DAILY #90 tab 11/12/23 Losartan [Cozaar] 100 mg PO DAILY #90 tab 11/12/23 carvediloL [Coreg] 6.25 mg PO BID-W/MEALS #90 tab 11/12/23 Famotidine [Pepcid] 20 mg PO BID #28 tablet 11/26/23 Lidocaine 5% Patch [Lidoderm 5% 1 patch TOPICAL DAILY PRN #30 patch 12/07/23 Patch] Mag Hydrox/Al Hydrox/Simeth 10 - 20 ml PO QID PRN #473 ml 12/07/23 [Maalox] Meloxicam [Mobic] 15 mg PO DAILY #10 tab 12/07/23 Allergies Allergy/AdvReac Type Severity Reaction Status Date / Time blue dye AdvReac Rapid Verified 12/11/23 18:02 Heart Rate Review of Systems ROS Statement: Those systems with pertinent positive or pertinent negative responses have been documented in the HPI. ROS Other: All systems not noted in ROS Statement are negative. Past Medical History Past Medical History: Coronary Artery Disease (CAD), Diabetes Mellitus Additional Past Medical History / Comment(s): pt type 1 diabetes Last Myocardial Infarction Date:: 2021 History of Any Multi-Drug Resistant Organisms: None Reported Past Surgical History: Orthopedic Surgery Additional Past Surgical History / Comment(s): Knee surgey 1993 Past Anesthesia/Blood Transfusion Reactions: No Reported Reaction Past Psychological History: Schizophrenia Smoking Status: Current every day smoker, Vaper Past Alcohol Use History: Occasional Past Drug Use History: Marijuana - Past Family History Father Family Medical History: Coronary Artery Disease (CAD) General Exam - General Exam Comments Initial Comments: GENERAL: Patient is well-developed and well-nourished. Patient is nontoxic and well- hydrated and is in mild distress. ENT: Neck is soft and supple. No significant lymphadenopathy is noted. Oropharynx is clear. Moist mucous membranes. Neck has full range of motion without eliciting any pain. EYES: The sclera were anicteric and conjunctiva were pink and moist. Extraocular movements were intact and pupils were equal round and reactive to light. Eyelids were unremarkable. PULMONARY: Unlabored respirations. Good breath sounds bilaterally. No audible rales rhonchi or wheezing was noted. CARDIOVASCULAR: There is a regular rate and rhythm without any murmurs gallops or rubs. Chest pain is reproducible ABDOMEN: Soft and nontender with normal bowel sounds. SKIN: Skin is clear with no lesions or rashes and otherwise unremarkable. NEUROLOGIC: Patient is alert and oriented x3. Cranial nerves II through XII are grossly intact. Motor and sensory are also intact. Normal speech, volume and content. Symmetrical smile. MUSCULOSKELETAL: Normal extremities with adequate strength and full range of motion. LYMPHATICS: No significant lymphadenopathy is noted PSYCHIATRIC: Normal psychiatric evaluation. Course Vital Signs 12/11/23 12/11/23 14:32 15:30 Temperature 97.7 F Pulse Rate 98 81 Respiratory 18 18 Rate Blood Pressure 129/86 129/94 O2 Sat by Pulse 99 100 Oximetry Medical Decision Making - Medical Decision Making EKG was interpreted by myself EKG shows a sinus rhythm at 96 bpm parables 139 QRS is 94 QT interval is 374 QTc is 427. Patient's EKG shows no ST segment ovation or depression. Was pt. sent in by a medical professional or institution (, [employer], [employer]ERING MECH[employer]IC, urgent care, hospital, or fpc...) When possible be specific @ -No Did you speak to anyone other than the patient for history (EMS, parent, family, police, friend...)? What history was obtained from this source @ -No Did you review nursing and triage notes (agree or disagree)? Why? @ -I reviewed and agree with nursing and triage notes Were old charts reviewed (outside hosp., previous admission, EMS record, old EKG, old radiological studies, urgent care reports/EKG's, fpc records)? Report findings @ -No old charts were reviewed Differential Diagnosis (chest pain, altered mental status, abdominal pain women, abdominal pain men, vaginal bleeding, weakness, fever, dyspnea, syncope, headache, dizziness, GI bleed, back pain, seizure, CVA, palpatations, mental health, musculoskeletal)? @ -Differential Chest Pain: Stable Angina, Unstable Angina, STEMI, NSTEMI Aortic Dissection, Pneumothorax, Musculoskeletal, Esophageal Spasm GERD, Cholecystitis, Pancreatitis, Zoster, this is not meant to be an all-inclusive list. EKG interpreted by me (3pts min.). @ -As above X-rays interpreted by me (1pt min.). @ -Chest x-ray shows no acute abnormality CT interpreted by me (1pt min.). @ -None done U/S interpreted by me (1pt. min.). @ -None done What testing was considered but not performed or refused? (CT, X-rays, U/S, labs)? Why? @ -None What meds were considered but not given or refused? Why? @ -None Did you discuss the management of the patient with other professionals (professionals i.e. [employer], [employer]ERING MECHANIC, lab, RT, psych nurse, social security benefits interviewer, speech pathology supervisor, teacher, hospital admissions officer, residential case manager)? Give summary @ -No Was smoking cessation discussed for >3mins.? @ -No Was critical care preformed (if so, how long)? @ -No Were there social determinants of health that impacted care today? How? (Homelessness, low income, unemployed, alcoholism, drug addiction, tr ansportation, low edu. Level, literacy, decrease access to med. care, prison, rehab)? @ -No Was there de-escalation of care discussed even if they declined (Discuss DNR or withdrawal of care, Hospice)? DNR status @ -No What co-morbidities impacted this encounter? (DM, HTN, Smoking, COPD, CAD, Cancer, CVA, ARF, Chemo, Hep., AIDS, mental health diagnosis, sleep apnea, morbid obesity)? @ -None Was patient admitted / discharged? Hospital course, mention meds given and route, prescriptions, significant lab abnormalities, going to OR and other pertinent info. @ -Lab on this patient came back normal except for high glucose and I gave the patient NovoLog subcu. Patient states that the pain has been ongoing for weeks and is unchanged and he is comfortable going home and will return if anything worsens. Undiagnosed new problem with uncertain prognosis? @ -No Drug Therapy requiring intensive monitoring for toxicity (Heparin, Nitro, Insulin, Cardizem)? @ -No Were any procedures done? @ -No Diagnosis/symptom? @ -Chronic chest pain Acute, or Chronic, or Acute on Chronic? @ -Chronic Uncomplicated (without systemic symptoms) or Complicated (systemic symptoms)? @ -Complicated Side effects of treatment? @ -No Exacerbation, Progression, or Severe Exacerbation? @ -No Poses a threat to life or bodily function? How? (Chest pain, USA, MS, pneumonia, PE, COPD, DKA, ARF, appy, cholecystitis, CVA, Diverticulitis, Homicidal, Suicidal, threat to staff... and all critical care pts) @ -No - Lab Data Result diagrams: 12/11/23 15:30 12/11/23 15:30 Lab Results 12/11/23 12/11/23 12/11/23 Range/Units 15:30 15:30 15:30 WBC 6.1 (3.8-10.6) k/uL RBC 4.92 (4.30-5.90) m/uL Hgb 14.9 (13.0-17.5) gm/dL Hct 43.9 (39.0-53.0) % MCV 89.2 (80.0-100.0) fL MCH 30.2 (25.0-35.0) pg MCHC 33.8 (31.0-37.0) g/dL RDW 13.0 (11.5-15.5) % Plt Count 237 (150-450) k/uL MPV 9.1 Neutrophils % 59 % Lymphocytes % 30 % Monocytes % 5 % Eosinophils % 3 % Basophils % 1 % Neutrophils # 3.7 (1.3-7.7) k/uL Lymphocytes # 1.9 (1.0-4.8) k/uL Monocytes # 0.3 (0-1.0) k/uL Eosinophils # 0.2 (0-0.7) k/uL Basophils # 0.0 (0-0.2) k/uL PT 10.3 (10.0-12.5) sec INR 0.9 (<1.2) APTT 27.1 (22.0-30.0) sec Sodium 132 L (137-145) mmol/L Potassium 3.8 (3.5-5.1) mmol/L Chloride 102 (98-107) mmol/L Carbon Dioxide 25 (22-30) mmol/L Anion Gap 5 mmol/L BUN 15 (9-20) mg/dL Creatinine 1.44 H (0.66-1.25) mg/dL Est GFR (CKD-EPI)AfAm 66 (>60 ml/min/1.73 sqM) Est GFR (CKD-EPI)NonAf 57 (>60 ml/min/1.73 sqM) Glucose 380 H (74-99) mg/dL Calcium 8.7 (8.4-10.2) mg/dL Magnesium 1.7 (1.6-2.3) mg/dL Total Bilirubin 0.7 (0.2-1.3) mg/dL AST 24 (17-59) U/L ALT 16 (4-49) U/L Alkaline Phosphatase 101 (38-126) U/L Troponin I (0.000-0.034) ng/mL Total Protein 5.8 L (6.3-8.2) g/dL Albumin 3.0 L (3.5-5.0) g/dL 12/11/23 Range/Units 15:30 WBC (3.8-10.6) k/uL RBC (4.30-5.90) m/uL Hgb (13.0-17.5) gm/dL Hct (39.0-53.0) % MCV (80.0-100.0) fL MCH (25.0-35.0) pg MCHC (31.0-37.0) g/dL RDW (11.5-15.5) % Plt Count (150-450) k/uL MPV Neutrophils % % Lymphocytes % % Monocytes % % Eosinophils % % Basophils % % Neutrophils # (1.3-7.7) k/uL Lymphocytes # (1.0-4.8) k/uL Monocytes # (0-1.0) k/uL Eosinophils # (0-0.7) k/uL Basophils # (0-0.2) k/uL PT (10.0-12.5) sec INR (<1.2) APTT (22.0-30.0) sec Sodium (137-145) mmol/L Potassium (3.5-5.1) mmol/L Chloride (98-107) mmol/L Carbon Dioxide (22-30) mmol/L Anion Gap mmol/L BUN (9-20) mg/dL Creatinine (0.66-1.25) mg/dL Est GFR (CKD-EPI)AfAm (>60 ml/min/1.73 sqM) Est GFR (CKD-EPI)NonAf (>60 ml/min/1.73 sqM) Glucose (74-99) mg/dL Calcium (8.4-10.2) mg/dL Magnesium (1.6-2.3) mg/dL Total Bilirubin (0.2-1.3) mg/dL AST (17-59) U/L ALT (4-49) U/L Alkaline Phosphatase (38-126) U/L Troponin I 0.015 (0.000-0.034) ng/mL Total Protein (6.3-8.2) g/dL Albumin (3.5-5.0) g/dL Disposition Clinical Impression: Chronic chest pain Disposition: HOME SELF-CARE Condition: Good Instructions (If sedation given, give patient instructions): Chest Pain (ED) Is patient prescribed a controlled substance at d/c from ED?: No Referrals: None,Stated [Primary Care Provider] - 1-2 days Time of Disposition: 18:09
[2023-12-11 15:48] LABS: Basophils % (A) 1 %; Eosinophils # (A) 0.2 k/uL (0-0.7); Eosinophils % (A) 3 %; HCT 43.9 % (39.0-53.0); HGB 14.9 gm/dL (13.0-17.5); Lymphocytes # (A) 1.9 k/uL (1.0-4.8); Lymphocytes % (A) 30 %; MCH 30.2 pg (25.0-35.0); MCHC 33.8 g/dL (31.0-37.0); MCV 89.2 fL (80.0-100.0); Mean Platelet Volume 9.1; Monocytes # (A) 0.3 k/uL (0-1.0); Monocytes % (A) 5 %; Neutrophils # (A) 3.7 k/uL (1.3-7.7); Neutrophils % (A) 59 %; Platelet Count 237 k/uL (150-450); RBC 4.92 m/uL (4.30-5.90); WBC 6.1 k/uL (3.8-10.6)
[2023-12-11 15:56] VITALS: BP 129/94; PULSE 81
[2023-12-11 15:59] LABS: INR 0.9 (<1.2); Partial Thromboplastin Time 27.1 sec (22.0-30.0); Prothrombin Time 10.3 sec (10.0-12.5)
[2023-12-11 16:14] LABS: ALT 16 U/L (4-49); AST 24 U/L (17-59); African American GFR (CKD) 66 (>60 ml/min/1.73 sqM); Alkaline Phosphatase 101 U/L (38-126); Anion Gap 5 mmol/L; Blood Urea Nitrogen 15 mg/dL (9-20); Calcium 8.7 mg/dL (8.4-10.2); Carbon Dioxide 25 mmol/L (22-30); Chloride 102 mmol/L (98-107); Glucose 380 mg/dL (74-99); Magnesium 1.7 mg/dL (1.6-2.3); Non-African American GFR(CKD) 57 (>60 ml/min/1.73 sqM); Potassium 3.8 mmol/L (3.5-5.1); Sodium 132 mmol/L (137-145); Total Bilirubin 0.7 mg/dL (0.2-1.3); Total Protein 5.8 g/dL (6.3-8.2)
[2023-12-11] MEDS ORDERED: INSULIN ASPART (NovoLOG) 100 UNIT/ML VIAL SQ ONE (18:05)
--- NOTE | 2023-12-11 18:39 | XR ---
EXAMINATION: XR chest 2V: 12/11/2023 5:41 PM CLINICAL INDICATION: Chest Pain TECHNIQUE: Departmental protocol COMPARISON: 12/09/2023 FINDINGS: The overlying soft tissues are prominent. The lungs are clear, as seen. The pleural spaces are negative. The cardiac silhouette is not enlarged. The skeletal structures and soft tissues are negative for acute findings. IMPRESSION: No definite acute radiographic process.
== END 2023-12-11 18:43 | disposition home or self-care (01) ==
LOC: EC 14:27
DX: G89.29 Other chronic pain (principal); R07.89 Other chest pain; E10.9 Type 1 diabetes mellitus without complications; I25.10 Atherosclerotic heart disease of native coronary artery without angina pectoris; I25.2 Old myocardial infarction; F17.290 Nicotine dependence, other tobacco product, uncomplicated; F12.90 Cannabis use, unspecified, uncomplicated; Z91.041 Radiographic dye allergy status
CPT/HCPCS: 36415; 71046; 80053; 83735; 84484; 85025; 85610; 85730; 93005; 99285

== ENCOUNTER 2023-12-12 19:16 | Observation (INO) | payer OTHER ==
--- NOTE | 2023-12-12 21:38 | ED ---
Back Pain HPI - General Source: patient Limitations: no limitations <Leno Cardoso - Last Filed: 12/12/23 21:38> - General Source: RN notes reviewed, old records reviewed Mode of arrival: ambulatory Limitations: no limitations - History of Present Illness MD Complaint: back pain, other (Chest pain) -: days(s) Similar Symptoms Previously: Yes Place: home Radiation: none Severity: mild Severity scale (1-10): 2 Quality: stabbing, aching Consistency: intermittent Improves With: none Worsens With: none Associated Symptoms: weakness, chest pain, shortness of breath Treatments Prior to Arrival: other (0) <Jose A Fatima - Last Filed: 12/19/23 20:48> - General Chief Complaint: Back Pain/Injury Stated Complaint: Chest/Back pain Time Seen by Provider: 12/12/23 21:37 - History of Present Illness Initial Comments: 48 year old male presenting to the ED with a chief complaint of back pain. Patient states earlier today, onset of back pain radiating to the front of his abdomen. Also notes some associated dysuria. (Leno Cardoso) This is a 48-year-old male to the ER for evaluation today. Patient presents today and states that he is having severe chest pain ate for evaluation of chest pain chest pain back pain severe. Patient states he believes he is having some issues with his heart has been here in the ER 3 times in the last 3 days for similar chest pain. (Jose A Fatima) - Related Data Previous Rx's Medication Instructions Recorded Insulin Detemir (Levemir) [Levemir] 30 unit SQ HS #7 each 09/02/23 Aspirin 81 mg PO DAILY #90 tab 11/12/23 Atorvastatin [Lipitor] 40 mg PO DAILY #90 tab 11/12/23 Famotidine [Pepcid] 20 mg PO BID #28 tablet 11/26/23 Mag Hydrox/Al Hydrox/Simeth 10 - 20 ml PO QID PRN #473 ml 12/07/23 [Maalox] Clopidogrel [Plavix] 75 mg PO DAILY #90 tab 12/14/23 Losartan [Cozaar] 50 mg PO DAILY #90 tab 12/14/23 carvediloL [Coreg*] 12.5 mg PO BID-W/MEALS tab 12/14/23 Allergies Allergy/AdvReac Type Severity Reaction Status Date / Time blue dye AdvReac Rapid Verified 12/18/23 02:25 Heart Rate Review of Systems ROS Other: All systems not noted in ROS Statement are negative. <Gennaro Cardosoua - Last Filed: 12/12/23 21:38> ROS Other: All systems not noted in ROS Statement are negative. <Jose A Fatima - Last Filed: 12/19/23 20:48> ROS Statement: Those systems with pertinent positive or pertinent negative responses have been documented in the HPI. Past Medical History Past Medical History: Coronary Artery Disease (CAD), Diabetes Mellitus Additional Past Medical History / Comment(s): pt type 1 diabetes Last Myocardial Infarction Date:: 2021 History of Any Multi-Drug Resistant Organisms: None Reported Past Surgical History: Orthopedic Surgery Additional Past Surgical History / Comment(s): Knee surgey 1993 Past Anesthesia/Blood Transfusion Reactions: No Reported Reaction Past Psychological History: Schizophrenia Smoking Status: Current every day smoker, Vaper Past Alcohol Use History: Occasional Past Drug Use History: Marijuana - Past Family History Father Family Medical History: Coronary Artery Disease (CAD) <eLno Cardoso - Last Filed: 12/12/23 21:38> General Exam Limitations: no limitations <JanaeLeno - Last Filed: 12/12/23 21:38> Limitations: no limitations General appearance: alert, in no apparent distress, anxious Head exam: Present: atraumatic, normocephalic, normal inspection Eye exam: Present: normal appearance, PERRL, EOMI. Absent: scleral icterus, conjunctival injection, periorbital swelling ENT exam: Present: normal exam, mucous membranes moist Neck exam: Present: normal inspection. Absent: tenderness, meningismus, lymphadenopathy Respiratory exam: Present: normal lung sounds bilaterally. Absent: respiratory distress, wheezes, rales, rhonchi, stridor Cardiovascular Exam: Present: regular rate, normal rhythm, normal heart sounds. Absent: systolic murmur, diastolic murmur, rubs, gallop, clicks GI/Abdominal exam: Present: soft, normal bowel sounds. Absent: distended, tenderness, guarding, rebound, rigid Extremities exam: Present: normal inspection, full ROM, normal capillary refill. Absent: tenderness, pedal edema, joint swelling, calf tenderness Back exam: Present: normal inspection Neurological exam: Present: alert, oriented X3, CN II-XII intact Psychiatric exam: Present: normal affect, normal mood Skin exam: Present: warm, dry, intact, normal color. Absent: rash <Jose A Fatima - Last Filed: 12/19/23 20:48> - General Exam Comments Initial Comments: Visual Physical Exam Vital signs reviewed General: Well-appearing, nontoxic, no acute distress. Head: Normocephalic, atraumatic Eyes: PERRLA, EOMI ENT: Airway patent Chest: Nonlabored breathing Skin: No visual rash, normal skin tone Neuro: Alert and oriented 3 Musculoskeletal: No gross abnormalities (Leno Cardoso) Course <Jose A Fatima - Last Filed: 12/19/23 20:48> Vital Signs 12/12/23 12/13/23 12/13/23 19:26 04:00 07:00 Temperature 98.4 F Pulse Rate 90 78 89 Pulse Rate [ Pulse Oximetery ] Respiratory 22 16 16 Rate Blood Pressure 138/81 128/67 137/86 Blood Pressure [Left Arm] Blood Pressure [Right Arm] O2 Sat by Pulse 97 98 99 Oximetry 12/13/23 12/13/23 12/13/23 09:34 12:00 17:14 Temperature 98.6 F 98.9 F 97.7 F Pulse Rate Pulse Rate [ 81 76 70 Pulse Oximetery ] Respiratory 18 16 16 Rate Blood Pressure Blood Pressure 143/75 [Left Arm] Blood Pressure 140/77 148/91 [Right Arm] O2 Sat by Pulse 97 99 100 Oximetry 12/13/23 20:43 Temperature 98.1 F Pulse Rate 68 Pulse Rate [ Pulse Oximetery ] Respiratory 16 Rate Blood Pressure 148/87 Blood Pressure [Left Arm] Blood Pressure [Right Arm] O2 Sat by Pulse 99 Oximetry - Reevaluation(s) Reevaluation #1: 12/13/23 00:45 Medical records reviewed (Jose A Fatima) Reevaluation #2: 12/13/23 00:45 Patient symptoms unchanged (Jose A Fatima) Reevaluation #3: 12/13/23 00:45 Patient informed of results and questions answered (Jose A Fatima) Reevaluation #4: Was pt. sent in by a medical professional or institution ([employer], SENIOR MEDICAL WRITER, urgent care, hospital, or [facility]...) When possible be specific @ -no Did you speak to anyone other than the patient for history (EMS, parent, family, police, friend...)? What history was obtained from this source @ -no Did you review nursing and triage notes (agree or disagree)? Why? @ -agree Are old charts reviewed (outside hosp., previous admission, EMS record, old EKG, old radiological studies, urgent care reports/EKG's, [facility] records)? Report findings @ -yes Differential Diagnosis (chest pain, altered mental status, abdominal pain women, abdominal pain men, vaginal bleeding, weakness, fever, dyspnea, syncope, headache, dizziness, GI bleed, back pain, seizure, CVA, palpatations, mental health, musculoskeletal)? @ -prior EKG interpreted by me (3pts min.). @ -yes X-rays interpreted by me (1pt min.). @ -yes negative for acute disease CT interpreted by me (1pt min.). @ -n yes negative for acute disease U/S interpreted by me (1pt. min.). @ -no What testing was considered but not performed or refused? (CT, X-rays, U/S, labs)? Why? @ -none What meds were considered but not given or refused? Why? @ -none Did you discuss the management of the patient with other professionals (professionals i.e. [employer], SENIOR MEDICAL WRITER, lab, RT, psych nurse, social service technician, engineering inspector, teacher, police liaison officer, family service caseworker)? Give summary @ -no Was smoking cessation discussed for >3mins.? @ -no Was critical care preformed (if so, how long)? @ -no Were there social determinants of health that impacted care today? How? (Homelessness, low income, unemployed, alcoholism, drug addiction, transportation, low edu. Level, literacy, decrease access to med. care, fpc, rehab)? @ -none Was there de-escalation of care discussed even if they declined (Discuss DNR or withdrawal of care, Hospice)? DNR status @ -no What co-morbidities impacted this encounter? (DM, HTN, Smoking, COPD, CAD, Cancer, CVA, ARF, Chemo, Hep., AIDS, mental health diagnosis, sleep apnea, morbid obesity)? @ -none Was patient admitted / discharged? Hospital course, mention meds given and route, prescriptions, significant lab abnormalities, going to OR and other pertinent info. @ - 48 male will be admitted for cardiac evaluation and treatment secondary to chest pain chest pain and back pain currently. Persistent pain here in the emergency department with history of underlying diabetes as well as known coronary artery disease. Admitted Undiagnosed new problem with uncertain prognosis? @ -no Drug Therapy requiring intensive monitoring for toxicity (Heparin, Nitro, Insulin, Cardizem)? @ -no Were any procedures done? @ -no Diagnosis/symptom? @ -Chest pain Acute, or Chronic, or Acute on Chronic? @ -Acute Uncomplicated (without systemic symptoms) or Complicated (systemic symptoms)? @ -Complicated Side effects of treatment? @ -no Exacerbation, Progression, or Severe Exacerbation? @ -exacerbation Poses a threat to life or bodily function? How? (Chest pain, USA, AL, pneumonia, PE, COPD, DKA, ARF, appy, cholecystitis, CVA, Diverticulitis, Homicidal, Suicidal, threat to staff... and all critical care pts) @ -yes with chest pain (Jose A Fatima) Reevaluation #5: Differential Chest Pain: Stable Angina, Unstable Angina, STEMI, NSTEMI Aortic Dissection, Pneumothorax, Musculoskeletal, Esophageal Spasm GERD, Cholecystitis, Pancreatitis, Zoster, this is not meant to be an all-inclusive list. (Jose A Fatima) - Consultations Consultation #1: Spoke with sound who agrees to admit this patient (Jose A Fatima) Medical Decision Making <Leno Cardoso - Last Filed: 12/12/23 21:38> - Lab Data Result diagrams: 12/14/23 05:39 12/14/23 05:39 - EKG Data -: EKG Interpreted by Me - Radiology Data Radiology results: report reviewed (CT of the abdomen and pelvis is negative for acute disease, chest x-ray is negative for acute disease), image reviewed <Jose A Fatima - Last Filed: 12/19/23 20:48> - Medical Decision Making Quicknote portion performed. Signed Leno Cardoso PA-C (Leno Cardoso) 48 male will be admitted for cardiac evaluation and treatment secondary to chest pain chest pain and back pain currently. Persistent pain here in the emergency department with history of underlying diabetes as well as known coronary artery disease (Jose A Fatima) - Lab Data Lab Results 12/12/23 12/12/23 12/12/23 Range/Units 10:27 21:50 21:50 WBC 6.7 (3.8-10.6) k/uL RBC 4.91 (4.30-5.90) m/uL Hgb 14.6 (13.0-17.5) gm/dL Hct 44.2 (39.0-53.0) % MCV 89.9 (80.0-100.0) fL MCH 29.7 (25.0-35.0) pg MCHC 33.0 (31.0-37.0) g/dL RDW 13.5 (11.5-15.5) % Plt Count 236 (150-450) k/uL MPV 9.5 Neutrophils % 48 % Lymphocytes % 38 % Monocytes % 8 % Eosinophils % 3 % Basophils % 1 % Neutrophils # 3.2 (1.3-7.7) k/uL Lymphocytes # 2.5 (1.0-4.8) k/uL Monocytes # 0.5 (0-1.0) k/uL Eosinophils # 0.2 (0-0.7) k/uL Basophils # 0.0 (0-0.2) k/uL Sodium 133 L (137-145) mmol/L Potassium 3.7 (3.5-5.1) mmol/L Chloride 103 (98-107) mmol/L Carbon Dioxide 26 (22-30) mmol/L Anion Gap 4 mmol/L BUN 23 H (9-20) mg/dL Creatinine 1.44 H (0.66-1.25) mg/dL Est GFR (CKD-EPI)AfAm 66 (>60 ml/min/1.73 sqM) Est GFR (CKD-EPI)NonAf 57 (>60 ml/min/1.73 sqM) Glucose 417 H (74-99) mg/dL Calcium 9.0 (8.4-10.2) mg/dL Total Bilirubin 1.0 (0.2-1.3) mg/dL AST 26 (17-59) U/L ALT 16 (4-49) U/L Alkaline Phosphatase 111 (38-126) U/L Total Protein 5.9 L (6.3-8.2) g/dL Albumin 3.2 L (3.5-5.0) g/dL Amylase 58 (30-110) U/L Lipase 58 (23-300) U/L Urine Color Colorless Urine Appearance Clear (Clear) Urine pH 5.5 (5.0-8.0) Ur Specific [place] 1.027 (1.001-1.035) Urine Protein 2+ H (Negative) Urine Glucose (UA) 4+ H (Negative) Urine Ketones Negative (Negative) Urine Blood Trace H (Negative) Urine Nitrite Negative (Negative) Urine Bilirubin Negative (Negative) Urine Urobilinogen <2.0 (<2.0) mg/dL Ur Leukocyte Esterase Negative (Negative) Urine RBC 1 (0-5) /hpf Urine WBC 2 (0-5) /hpf Hyaline Casts 12 H (0-2) /lpf Urine Mucus Rare H (None) /hpf Disposition <Leno Cardoso - Last Filed: 12/12/23 21:38> Is patient prescribed a controlled substance at d/c from ED?: No Time of Disposition: 00:10 <Jose A Fatima - Last Filed: 12/19/23 20:48> Clinical Impression: Chest pain, Chronic back pain, Diabetes mellitus Disposition: ADMITTED IP TO THIS HOSP Condition: Stable
[2023-12-12 22:02] LABS: Basophils % (A) 1 %; Eosinophils # (A) 0.2 k/uL (0-0.7); Eosinophils % (A) 3 %; HCT 44.2 % (39.0-53.0); HGB 14.6 gm/dL (13.0-17.5); Lymphocytes # (A) 2.5 k/uL (1.0-4.8); Lymphocytes % (A) 38 %; MCH 29.7 pg (25.0-35.0); MCV 89.9 fL (80.0-100.0); Mean Platelet Volume 9.5; Monocytes # (A) 0.5 k/uL (0-1.0); Monocytes % (A) 8 %; Neutrophils # (A) 3.2 k/uL (1.3-7.7); Neutrophils % (A) 48 %; Platelet Count 236 k/uL (150-450); RBC 4.91 m/uL (4.30-5.90); RDW 13.5 % (11.5-15.5); WBC 6.7 k/uL (3.8-10.6)
--- NOTE | 2023-12-12 22:16 | CT ---
EXAMINATION TYPE: CT abdomen pelvis wo con CT DLP: 967.2 mGycm, Automated exposure control for dose reduction was used. DATE OF EXAM: 12/12/2023 9:55 PM COMPARISON: CT abdomen pelvis most recent from 12/07/2023 CLINICAL INDICATION:Male, 48 years old with history of r/o stone; Flank pain. R/O stone. TECHNIQUE: Axial CT abdomen pelvis wo con;Sagittal and coronal reformats were created on a separate workstation. Contrast used: mL of , (none if empty) Oral contrast used: without Oral Contrast (none if empty) FINDINGS: LOWER CHEST: Unremarkable ABDOMEN LIVER: Unremarkable GALLBLADDER AND BILE DUCTS: Unremarkable. PANCREAS: Unremarkable. SPLEEN: Unremarkable. ADRENAL GLANDS: Unremarkable. KIDNEYS AND URETERS: No evidence of hydronephrosis or renal calculus. The ureters are unremarkable. PELVIS BLADDER: Unremarkable REPRODUCTIVE: Unremarkable. ABDOMEN & PELVIS STOMACH AND BOWEL: No evidence of bowel obstruction. The appendix is normal. PERITONEUM/RETROPERITONEUM: No evidence of pneumoperitoneum or free fluid. VASCULATURE: No evidence of aortic aneurysm. MUSCULOSKELETAL: No acute osseous abnormalities LYMPH NODES: No gross evidence for lymphadenopathy. SOFT TISSUE/ABDOMINAL WALL: Small bilateral fat-containing inguinal inguinal hernias. Fat-containing buccal hernia. IMPRESSION: 1. No evidence for obstructive uropathy or renal calculus. No evidence for diverticulitis. No left s ided abdominal process to explain the patient's pain. 2. Fat-containing inguinal hernias left greater than right.
[2023-12-12 22:31] LABS: ALT 16 U/L (4-49); AST 26 U/L (17-59); African American GFR (CKD) 66 (>60 ml/min/1.73 sqM); Albumin 3.2 g/dL (3.5-5.0); Alkaline Phosphatase 111 U/L (38-126); Amylase 58 U/L (30-110); Anion Gap 4 mmol/L; Blood Urea Nitrogen 23 mg/dL (9-20); Carbon Dioxide 26 mmol/L (22-30); Chloride 103 mmol/L (98-107); Glucose 417 mg/dL (74-99); Lipase 58 U/L (23-300); Non-African American GFR(CKD) 57 (>60 ml/min/1.73 sqM); Potassium 3.7 mmol/L (3.5-5.1); Sodium 133 mmol/L (137-145); Total Protein 5.9 g/dL (6.3-8.2)
[2023-12-13] MEDS ORDERED: NALOXONE 0.4 MG/ML 1 ML VIAL IV PRN (00:47)
[2023-12-13] MEDS ORDERED: MORPHINE SULFATE 4 MG/ML SYRINGE IV PRN (00:47)
[2023-12-13] MEDS ORDERED: ONDANSETRON 4 MG/2 ML VIAL IVP PRN (00:47)
[2023-12-13] MEDS: HYDROmorphone 1 MG/ML 1 ML SYRINGE IVP STA (00:59)
--- NOTE | 2023-12-13 01:52 | XR ---
EXAMINATION TYPE: XR chest 1V DATE OF EXAM: 12/13/2023 CLINICAL HISTORY: Chest pain and altered mental status. TECHNIQUE: Single frontal view of the chest is obtained. COMPARISON: Chest x-ray 2 days earlier FINDINGS: There is no suspicious focal air space opacity, pleural effusion, or pneumothorax seen. T he cardiac silhouette size is stable and within normal limits. The osseous structures are intact. IMPRESSION: No acute process. No significant change from prior.
[2023-12-13] MEDS ORDERED: DEXTROSE 50% SYRINGE 50 ML IVP PRN ×2 (06:25)
--- NOTE | 2023-12-13 06:25 | P.HPIM ---
History of Present Illness H&P Date: 12/13/23 Chief Complaint: Chest pain 48-year-old male with history of diabetes mellitus hypertension coronary artery disease Patient is coming back for recurrent chest pain he describes chest heaviness across his chest 8 out of 10 in severity no associated nausea vomiting dizziness lightheadedness shortness of breath profuse sweating or palpitations. He describes the pain as pressure-like comes and goes worse with activity this time was triggered in the morning while he was sitting doing nothing pain lasted for few seconds and went away however he had more episodes throughout the day for which she grew concerned decided to come in for evaluation Patient had multiple visits for same problem in the past. Patient had a left heart cath done in August 2023 showed one-vessel disease however medical management was suggested due to small caliber PDA. Patient otherwise denies any fevers chills coughing changes in bowel or urinary habits denies any GI bleeding he denies any history of blood clot denies any recent traveling. However he does report some vague left-sided abdominal pain colicky in nature nonradiating Patient does admit to heavy smoking denies any illicit drugs or alcohol review of systems Pertinent positives as noted in HPI. All other systems were reviewed and are negative on exam Constitutional: No acute distress, conversant, pleasant Eyes: Anicteric sclerae, moist conjunctiva, Pupils equal round reactive to light ENMT: NC/AT Oropharynx clear, no erythema, or exudates Neck: Supple, no masses, or JVD No carotid bruits No thyromegaly Lungs: Clear to auscultation Clear to percussion Normal respiratory effort, no accessory muscle use Cardiovascular: Heart regular in rate and rhythm, No murmurs, gallops, or rubs No peripheral edema Abdominal: Soft Nontender, no guarding, rebound or rigidity Abdomen moving with respiration Normoactive bowel sounds Extremities: No digital cyanosis No clubbing Pedal pulses intact and symmetrical Radial pulses intact and symmetrical No calf tenderness Psychiatric: Alert and oriented to person, place and time Neuro Muscles Strength 5/5 in all 4 extremities Sensation to light touch grossly present throughout Cranial nerves II-XII grossly intact Past Medical History Past Medical History: Coronary Artery Disease (CAD), Diabetes Mellitus Additional Past Medical History / Comment(s): pt type 1 diabetes Last Myocardial Infarction Date:: 2021 History of Any Multi-Drug Resistant Organisms: None Reported Past Surgical History: Orthopedic Surgery Additional Past Surgical History / Comment(s): Knee surgey 1993 Past Anesthesia/Blood Transfusion Reactions: No Reported Reaction Past Psychological History: Schizophrenia Smoking Status: Current every day smoker, Vaper Past Alcohol Use History: Occasional Past Drug Use History: Marijuana - Past Family History Father Family Medical History: Coronary Artery Disease (CAD) Medications and Allergies Home Medications Medication Instructions Recorded Confirmed Type Insulin Detemir (Levemir) [Levemir] 30 unit SQ HS #7 each 09/02/23 12/11/23 Rx metFORMIN HCL ER [Glucophage XR] 500 mg PO DAILY #60 tab 09/02/23 12/11/23 Rx sitaGLIPtin PHOSPHATE [Januvia] 25 mg PO DAILY #60 tab 09/02/23 12/11/23 Rx Aspirin 81 mg PO DAILY #90 tab 11/12/23 12/11/23 Rx Atorvastatin [Lipitor] 40 mg PO DAILY #90 tab 11/12/23 12/11/23 Rx Clopidogrel [Plavix] 75 mg PO DAILY #90 tab 11/12/23 12/11/23 Rx Isosorbide Mononitrate ER [Imdur] 30 mg PO DAILY #90 tab 11/12/23 12/11/23 Rx Losartan [Cozaar] 100 mg PO DAILY #90 tab 11/12/23 12/11/23 Rx carvediloL [Coreg] 6.25 mg PO BID-W/MEALS #90 tab 11/12/23 12/11/23 Rx Famotidine [Pepcid] 20 mg PO BID #28 tablet 11/26/23 12/11/23 Rx Lidocaine 5% Patch [Lidoderm 5% 1 patch TOPICAL DAILY PRN #30 patch 12/07/23 12/11/23 Rx Patch] Mag Hydrox/Al Hydrox/Simeth 10 - 20 ml PO QID PRN #473 ml 12/07/23 12/11/23 Rx [Maalox] Meloxicam [Mobic] 15 mg PO DAILY #10 tab 12/07/23 12/11/23 Rx Allergies Allergy/AdvReac Type Severity Reaction Status Date / Time blue dye AdvReac Rapid Verified 12/12/23 19:32 Heart Rate Physical Exam Vitals: Vital Signs Temp Pulse Resp BP Pulse Ox 12/12/23 19:26 98.4 F 90 22 138/81 97 Intake and Output 12/12/23 12/12/23 12/13/23 14:59 22:59 06:59 Other: Weight 108.862 kg Results CBC & Chem 7: 12/12/23 21:50 12/12/23 21:50 Labs: Abnormal Lab Results - Last 24 Hours (Table) 12/12/23 Range/Units 21:50 Sodium 133 L (137-145) mmol/L BUN 23 H (9-20) mg/dL Creatinine 1.44 H (0.66-1.25) mg/dL Glucose 417 H (74-99) mg/dL Total Protein 5.9 L (6.3-8.2) g/dL Albumin 3.2 L (3.5-5.0) g/dL Assessment and Plan Assessment: 48-year-old male diabetes mellitus hypertension coronary artery disease coming in for recurrent episodes of chest pain I discussed case with ED doctor accepted the admission for atypical chest pain rule out acute coronary syndrome with anticipated length of stay less than 2 midnights Atypical chest pain Troponins still pending continue to trend EKG no acute ST changes Continue with aspirin, statin, Plavix Continue with Coreg and Imdur Chest x-ray no acute cardiopulmonary process Cardiology consult monitoring and evaluation advisor Acute kidney injury Avoid nephrotoxic meds BUN 23 creatinine 1.4 sodium 133 potassium 3.7 Monitor urine output Gentle IV fluid hydration normal saline 100 cc/h Losartan on hold Diabetes mellitus Hold oral hypoglycemic agents Insulin sliding scale Full code DVT prophylaxis heparin subcu 3 times daily GI prophylaxis Pepcid 20 mg twice daily p.o. CT scan of the abdomen pelvis showed no acute intra-abdominal process. Showed fat-containing inguinal hernias left greater than right White count 6.7 hemoglobin 14.6 unremarkable
[2023-12-13] MEDS: SODIUM CHLORIDE 0.9% 1,000 ML IV SCH (06:43)
[2023-12-13 06:50] LABS: Glucose,Whole Blood 331 mg/dL (70-110)
[2023-12-13] MEDS: carvediloL 6.25 MG TAB PO SCH (07:24)
[2023-12-13] MEDS: INSULIN ASPART (NovoLOG) 100 UNIT/ML VIAL SQ SCH (07:26)
[2023-12-13] MEDS: CLOPIDOGREL 75 MG TAB PO SCH (09:47)
[2023-12-13] MEDS: ATORVASTATIN 40 MG TAB PO SCH (09:47)
[2023-12-13] MEDS: ASPIRIN 81 MG PO SCH (09:47)
[2023-12-13] MEDS: FAMOTIDINE 20 MG TAB PO SCH (09:47)
[2023-12-13] MEDS: LOSARTAN 50 MG TAB PO SCH (09:47)
[2023-12-13] MEDS: ISOSORBIDE MONONITRATE ER 30 MG TAB.ER.24H PO SCH (09:51)
[2023-12-13 11:30] LABS: Glucose,Whole Blood 183 mg/dL (70-110)
[2023-12-13 11:32] LABS: Appearance,Urine Clear (Clear); Bilirubin,Urine Negative (Negative); Blood,Urine Trace (Negative); Color,Urine Colorless; Glucose,Urine (UA) 4+ (Negative); Hyaline Casts,Urine 12 /lpf (0-2); Ketones,Urine Negative (Negative); Leukocyte Esterase,Urine Negative (Negative); Mucus,Urine Rare /hpf; Nitrite,Urine Negative (Negative); PH, Urine 5.5 (5.0-8.0); Protein,Urine 2+ (Negative); RBC,Urine 1 /hpf (0-5); Specific Gravity,Urine 1.027 (1.001-1.035); Urobilinogen,Urine <2.0 mg/dL (<2.0); WBC,Urine 2 /hpf (0-5)
--- NOTE | 2023-12-13 15:40 | P.CRDCN ---
History of Present Illness Consult date: 12/13/23 Consult reason: chest pain History of present illness: The patient is a 48-year-old male who came to the emergency room with chest discomfort. The patient has had multiple ER visits for similar complaints. Overall ACS workup is unremarkable. The patient does have a known history of coronary artery disease based upon coronary angiogram last August. The patient has focal stenosis of the PDA subbranch, which is not a candidate for intervention. The patient also has mid LAD myocardial bridging. DIAGNOSTICS: EKG shows sinus mechanism with no acute ST or T wave abnormalities Chest x-ray shows no acute cardiopulmonary process CT scan of abdomen and pelvis shows no evidence for obstructive uropathy or renal calculus. Bilateral fat-containing inguinal hernias, left greater than right. Lab data: WBC 6.7, hemoglobin 14.6, hematocrit 44.2, platelet 236, sodium 133, potassium 3.7, BUN 23, creatinine 1.14, AST 26, ALT 16, troponin 0.012. REVIEW OF SYSTEMS: No fever or chills. No cough or expectoration. No diaphoresis. Patient denies headache, dizziness, blurred vision, double vision. Patient denies any stomach discomfort. No nausea, vomiting. No hematochezia. No hematemesis. Denies any black stools or blood in his stools. Denies dysuria or hematuria. No muscle weakness or numbness. Positive for intermittent chest pains. PHYSICAL EXAMINATION: This is a 48-year-old -[place] male in no apparent distress at the time of my examination. HEENT: Head is atraumatic, normocephalic. Pupils are equal, round. Sclerae anicteric.. There is no jugular venous distention. No carotid bruit is heard. CHEST EXAMINATION: Lungs are clear to auscultation. No chest wall tenderness is noted on palpation or with deep breathing. HEART EXAMINATION: Heart regular rate and rhythm. S1, S2 heard. No murmurs, gallops or rub. ABDOMEN: Soft, nontender. Bowel sounds are heard. No organomegaly noted. EXTREMITIES: 2+ peripheral pulses with no evidence of peripheral edema and no calf tenderness noted. NEUROLOGIC EXAMINATION: Patient is awake, alert and oriented x3. FINAL ASSESSMENT AND PLAN: Chest discomfort History of coronary artery disease History of myocardial bridging Uncontrolled diabetes mellitus Current smoker Hypertension PLAN: Increase carvedilol for chest discomfort Discontinue isosorbide as it is contraindicated with myocardial bridging Smoking cessation advised Aggressive diabetes management No plans for repeat coronary angiogram or cardiac testing at this time. Follow- up with primary kick plate installer Dr. Bangura. Thank you kindly for this consultation. Will continue to follow on an as-needed basis. I am dictating on behalf of Dr Joe Griffith's history/physical and assessment/plan. Past Medical History Past Medical History: Coronary Artery Disease (CAD), Diabetes Mellitus Additional Past Medical History / Comment(s): pt type 1 diabetes Last Myocardial Infarction Date:: 2021 History of Any Multi-Drug Resistant Organisms: None Reported Past Surgical History: Orthopedic Surgery Additional Past Surgical History / Comment(s): Knee surgey 1993 Past Anesthesia/Blood Transfusion Reactions: No Reported Reaction Past Psychological History: Schizophrenia Smoking Status: Current every day smoker, Vaper Past Alcohol Use History: Occasional Past Drug Use History: Marijuana - Past Family History Father Family Medical History: Coronary Artery Disease (CAD) Medications and Allergies Home Medications Medication Instructions Recorded Confirmed Type Insulin Detemir (Levemir) [Levemir] 30 unit SQ HS #7 each 09/02/23 12/13/23 Rx Aspirin 81 mg PO DAILY #90 tab 11/12/23 12/13/23 Rx Atorvastatin [Lipitor] 40 mg PO DAILY #90 tab 11/12/23 12/13/23 Rx Clopidogrel [Plavix] 75 mg PO DAILY #90 tab 11/12/23 12/13/23 Rx Losartan [Cozaar] 100 mg PO DAILY #90 tab 11/12/23 12/13/23 Rx carvediloL [Coreg] 6.25 mg PO BID-W/MEALS #90 tab 11/12/23 12/13/23 Rx Famotidine [Pepcid] 20 mg PO BID #28 tablet 11/26/23 12/13/23 Rx Mag Hydrox/Al Hydrox/Simeth 10 - 20 ml PO QID PRN #473 ml 12/07/23 12/13/23 Rx [Maalox] Meloxicam [Mobic] 15 mg PO DAILY #10 tab 12/07/23 12/13/23 Rx Allergies Allergy/AdvReac Type Severity Reaction Status Date / Time blue dye AdvReac Rapid Verified 12/13/23 14:18 Heart Rate Physical Exam Vitals: Vital Signs Temp Pulse Pulse Resp BP BP Pulse Ox 12/13/23 09:34 98.6 F 81 18 143/75 97 12/13/23 07:00 89 16 137/86 99 12/13/23 04:00 78 16 128/67 98 12/12/23 19:26 98.4 F 90 22 138/81 97 Intake and Output 12/13/23 12/13/23 12/13/23 06:59 14:59 22:59 Intake Total 698 Balance 698 Intake: Oral 698 Other: Voiding Method Toilet # Voids 1 # Bowel Movements 1 Results 12/12/23 21:50 12/12/23 21:50 Cardiac Enzymes 12/12/23 12/13/23 Range/Units 21:50 05:51 AST 26 (17-59) U/L Troponin I 0.012 (0.000-0.034) ng/mL CBC 12/12/23 Range/Units 21:50 WBC 6.7 (3.8-10.6) k/uL RBC 4.91 (4.30-5.90) m/uL Hgb 14.6 (13.0-17.5) gm/dL Hct 44.2 (39.0-53.0) % Plt Count 236 (150-450) k/uL Comprehensive Metabolic Panel 12/12/23 Range/Units 21:50 Sodium 133 L (137-145) mmol/L Potassium 3.7 (3.5-5.1) mmol/L Chloride 103 (98-107) mmol/L Carbon Dioxide 26 (22-30) mmol/L BUN 23 H (9-20) mg/dL Creatinine 1.44 H (0.66-1.25) mg/dL Glucose 417 H (74-99) mg/dL Calcium 9.0 (8.4-10.2) mg/dL AST 26 (17-59) U/L ALT 16 (4-49) U/L Alkaline Phosphatase 111 (38-126) U/L Total Protein 5.9 L (6.3-8.2) g/dL Albumin 3.2 L (3.5-5.0) g/dL Current Medications Generic Name Dose Route Start Last Admin Trade Name Freq PRN Reason Stop Dose Admin Aspirin 81 mg 12/13/23 09:00 12/13/23 09:47 Aspirin 81 Mg PO 81 mg DAILY LINDEN Administration Atorvastatin Calcium 40 mg 12/13/23 09:00 12/13/23 09:47 Atorvastatin 40 Mg Tab PO 40 mg DAILY LINDEN Administration Carvedilol 12.5 mg 12/13/23 17:30 Carvedilol 12.5 Mg Tab PO BID-W/MEALS ON LICENSE OF [facility] Clopidogrel Bisulfate 75 mg 12/13/23 09:00 12/13/23 09:47 Clopidogrel 75 Mg Tab PO 75 mg DAILY LINDEN Administration Dextrose/Water 25 ml 12/13/23 06:25 Dextrose 50% Syringe 50 Ml IVP PER PROTOCOL PRN Hypoglycemia Protocol Dextrose/Water 50 ml 12/13/23 06:25 Dextrose 50% Syringe 50 Ml IVP PER PROTOCOL PRN Hypoglycemia Protocol Famotidine 20 mg 12/13/23 09:00 12/13/23 09:47 Famotidine 20 Mg Tab PO 20 mg BID ON LICENSE OF [facility] Administration Sodium Chloride 1,000 mls @ 130 mls/hr 12/13/23 06:30 12/13/23 06:43 Saline 0.9% IV 130 mls/hr .[id number] ON LICENSE OF [facility] Administration Insulin Aspart 0 unit 12/13/23 07:30 12/13/23 11:40 Insulin Aspart (Novolog) 100 Unit/Ml Vial SQ 3 unit ACHS ON LICENSE OF [facility] Administration Protocol Insulin Detemir 30 unit 12/13/23 21:00 Insulin Detemir (Levemir) 100 Unit/Ml Syr SQ HS ON LICENSE OF [facility] Losartan Potassium 50 mg 12/13/23 09:45 12/13/23 09:47 Losartan 50 Mg Tab PO 50 mg DAILY ON LICENSE OF [facility] Administration Morphine Sulfate 4 mg 12/13/23 00:47 Morphine Sulfate 4 Mg/Ml Syringe IV Q4HR PRN Severe Pain (Scale 7 to 10) Naloxone HCl 0.2 mg 12/13/23 00:47 Naloxone 0.4 Mg/Ml 1 Ml Vial IV Q2M PRN Opioid Reversal Ondansetron HCl 4 mg 12/13/23 00:47 Ondansetron 4 Mg/2 Ml Vial IVP Q8HR PRN Nausea And Vomiting Intake and Output 12/13/23 12/13/23 12/13/23 06:59 14:59 22:59 Intake Total 698 Balance 698 Intake: Oral 698 Other: Voiding Method Toilet # Voids 1 # Bowel Movements 1 12/12/23 21:50 12/12/23 21:50
[2023-12-13 17:14] LABS: Glucose,Whole Blood 278 mg/dL (70-110)
[2023-12-13] MEDS: carvediloL 12.5 MG TAB PO SCH (17:21)
[2023-12-13] MEDS: INSULIN DETEMIR (LEVEMIR) 100 UNIT/ML SYR SQ SCH (21:31)
[2023-12-13 21:32] LABS: Glucose,Whole Blood 156 mg/dL (70-110)
[2023-12-14 04:54] VITALS: PULSE 69
[2023-12-14 06:25] LABS: Glucose,Whole Blood 193 mg/dL (70-110)
[2023-12-14 09:12] VITALS: BP 129/83; RESP 18; TEMP 98
[2023-12-14 09:19] LABS: Basophils # (A) 0.04 X 10*3/uL (0.00-0.10); Basophils % (A) 0.7 %; Eosinophils # (A) 0.25 X 10*3/uL (0.04-0.35); Eosinophils % (A) 4.3 %; Lymphocytes # (A) 2.78 X 10*3/uL (0.90-5.00); Lymphocytes % (A) 47.6 %; MCHC 34.2 g/dL (32.0-37.0); MCV 87.8 FL (80.0-97.0); Monocytes # (A) 0.66 X 10*3/uL (0.20-1.00); Monocytes % (A) 11.3 %; NRBC Per 100 WBC 0 X 10*3/uL (0.00-0.01); Neutrophils % (A) 35.9 %; Platelet Count 228 X 10*3/uL (140-440); RBC 4.33 X 10*6/uL (4.40-5.60); RDW 13.1 % (11.5-14.5); WBC 5.84 X 10*3/uL (4.50-10.00)
[2023-12-14 11:07] LABS: ALT 12 U/L (10-49); AST 12 U/L (14-35); Albumin 3.1 g/dL (3.8-4.9); Albumin/Globulin Ratio 1.41 Ratio (1.60-3.17); Alkaline Phosphatase 91 U/L (41-126); BUN/Creat Ratio 17.92 Ratio (12.00-20.00); Blood Urea Nitrogen 21.5 mg/dL (9.0-27.0); Carbon Dioxide 25.7 mmol/L (21.6-31.8); Chloride 105 mmol/L (96-109); Globulin 2.2 g/dL (1.6-3.3); Glucose 211 mg/dL (70-110); Magnesium 1.9 mg/dL (1.5-2.4); Phosphorus 4.1 mg/dL (2.4-5.1); Potassium 4.1 mmol/L (3.5-5.5); Sodium 140 mmol/L (135-145); Total Bilirubin 0.3 mg/dL (0.3-1.2); Total Protein 5.3 g/dL (6.2-8.2)
[2023-12-14 11:36] LABS: Glucose,Whole Blood 254 mg/dL (70-110)
--- NOTE | 2023-12-14 12:07 | P.DS ---
Providers Date of admission: 12/13/23 00:48 Expected date of discharge: 12/14/23 Attending physician: Kayli Goetz MD Consults: 12/13/23 00:47 Consult Physician Routine Consulting Provider: Michell Parekh Consult Reason/Comments: cp Do you want consulting provider notified?: Yes Primary care physician: Stated None Hospital Course: Discharge Diagnosis: Atypical chest pain, ACS ruled out Acute kidney injury Poorly controlled type 2 diabetes Inguinal hernias bilateral Hospital Course: 48-year-old female with history of poorly controlled type 2 diabetes, hypertension, coronary artery disease presenting with chest pain. Vital signs on arrival are within normal limits. Laboratory workup showed creatinine of 1.44, A1c 12.2, troponin negative. EKG showed sinus rhythm. Chest x-ray showed no acute process. CT abdomen pelvis showed bilateral inguinal hernias, no acute process. Cardiology consulted. Not recommending any further interventions. Outpatient follow-up. Patient to follow-up with PCP as well. Patient seen and examined at bedside. Vital signs reviewed and stable. General: Nontoxic, no distress, appears at stated age, obese Derm: Warm, dry Head: Atraumatic, normocephalic, symmetric Eyes: EOMI, no lid lag, anicteric sclera Mouth: No lip lesion, mucus membranes moist Cardiovascular: S1S2 reg, no murmur Lungs: CTA bilateral, no rhonchi, no rales, no accessory muscle use Abdominal: Soft, nontender to palpation, no guarding, no appreciable organomegaly Ext: No gross muscle atrophy, no edema, no contractures Neuro: CN II-XI grossly intact, no focal neuro deficits Psych: Alert, oriented, appropriate affect A total of 33 minutes of time were spent preparing this complex discharge summary. Patient was discharged on 12/14/2023 at 1158. Patient Condition at Discharge: Stable Plan - Discharge Summary New Discharge Prescriptions: New Losartan [Cozaar] 50 mg PO DAILY #90 tab Continue Aspirin 81 mg PO DAILY #90 tab Famotidine [Pepcid] 20 mg PO BID #28 tablet Insulin Detemir (Levemir) [Levemir] 30 unit SQ HS #7 each carvediloL [Coreg] 6.25 mg PO BID-W/MEALS #90 tab Atorvastatin [Lipitor] 40 mg PO DAILY #90 tab Clopidogrel [Plavix] 75 mg PO DAILY #90 tab Mag Hydrox/Al Hydrox/Simeth [Maalox] 10 - 20 ml PO QID PRN #473 ml PRN Reason: Heartburn Discontinued Losartan [Cozaar] 100 mg PO DAILY #90 tab Meloxicam [Mobic] 15 mg PO DAILY #10 tab Isosorbide Mononitrate ER [Imdur] 30 mg PO DAILY #90 tab Discharge Medication List Insulin Detemir (Levemir) [Levemir] 30 unit SQ HS #7 each 09/02/23 [Rx] Aspirin 81 mg PO DAILY #90 tab 11/12/23 [Rx] Atorvastatin [Lipitor] 40 mg PO DAILY #90 tab 11/12/23 [Rx] Clopidogrel [Plavix] 75 mg PO DAILY #90 tab 11/12/23 [Rx] carvediloL [Coreg] 6.25 mg PO BID-W/MEALS #90 tab 11/12/23 [Rx] Famotidine [Pepcid] 20 mg PO BID #28 tablet 11/26/23 [Rx] Mag Hydrox/Al Hydrox/Simeth [Maalox] 10 - 20 ml PO QID PRN #473 ml 12/07/23 [Rx] Losartan [Cozaar] 50 mg PO DAILY #90 tab 12/14/23 [Rx] Follow up Appointment(s)/Referral(s): Leonor Ritchie MD [REFERRING] - 1 Week Juice Bangura MD [STAFF PHYSICIAN] - 1 Week Patient Instructions/Handouts: Chest Pain (DC) Activity/Diet/Wound Care/Special Instructions: Please see your PCP and operating room assistant. Discharge Disposition: HOME SELF-CARE
== END 2023-12-14 14:15 | disposition home or self-care (01) ==
LOC: EC 19:16 → 6NMEDSUR 12-13 00:48
PROVIDERS: ADMIT Internal Medicine; ATTEND Internal Medicine
DX: R07.89 Other chest pain (principal); N17.9 Acute kidney failure, unspecified; E10.65 Type 1 diabetes mellitus with hyperglycemia; K40.20 Bilateral inguinal hernia, without obstruction or gangrene, not specified as recurrent; I10 Essential (primary) hypertension; Q24.5 Malformation of coronary vessels; I25.10 Atherosclerotic heart disease of native coronary artery without angina pectoris; F17.290 Nicotine dependence, other tobacco product, uncomplicated; G89.29 Other chronic pain; M54.9 Dorsalgia, unspecified; Z79.4 Long term (current) use of insulin; Z79.84 Long term (current) use of oral hypoglycemic drugs; Z79.82 Long term (current) use of aspirin; Z79.02 Long term (current) use of antithrombotics/antiplatelets; Z79.1 Long term (current) use of non-steroidal anti-inflammatories (NSAID); Z79.899 Other long term (current) drug therapy; Z91.048 Other nonmedicinal substance allergy status
CPT/HCPCS: 96361; 96374; 99285; 36415; 93005; 80053 ×2; 82150; 83690; 83735; 84100; 84484; 85025 ×2; 81001; 83036; 71045; 74176; G0378 ×2; J1170

== ENCOUNTER 2023-12-17 10:12 | Emergency (ER) | payer OTHER ==
--- NOTE | 2023-12-17 10:35 | ED ---
General Adult HPI - General Source: patient, RN notes reviewed Mode of arrival: ambulatory Limitations: no limitations <Judy Grey - Last Filed: 12/17/23 10:33> - General Source: patient, RN notes reviewed Mode of arrival: ambulatory Limitations: no limitations <Han Clark - Last Filed: 12/17/23 14:34> - General Chief complaint: Extremity Problem,Nontraumatic Stated complaint: [place] hand pain/burning Time Seen by Provider: 12/17/23 10:30 - History of Present Illness Initial comments: Quick Note: This is a 48-year-old male who presents to the emergency department for numbness and tingling in his hands. States that this started today. Also describes this as a burning sensation. Patient does have a substantial history of peripheral neuropathy secondary to uncontrolled diabetes. However, he states that his feet are not currently hurting. (Judy Grey) 48-year-old male presents emergency department with hand cramping tingling. Patient states started today comes and goes he states significant burning sensation does have a history of peripheral neuropathy related to his diabetes that is not very well-controlled. He states that he usually has in his feet sometimes his hands. Denies chest pain shortness of breath no fevers chills cough or cold-like symptoms. (Han Clark) - Related Data Previous Rx's Medication Instructions Recorded Insulin Detemir (Levemir) [Levemir] 30 unit SQ HS #7 each 09/02/23 Aspirin 81 mg PO DAILY #90 tab 11/12/23 Atorvastatin [Lipitor] 40 mg PO DAILY #90 tab 11/12/23 Famotidine [Pepcid] 20 mg PO BID #28 tablet 11/26/23 Mag Hydrox/Al Hydrox/Simeth 10 - 20 ml PO QID PRN #473 ml 12/07/23 [Maalox] Clopidogrel [Plavix] 75 mg PO DAILY #90 tab 12/14/23 Losartan [Cozaar] 50 mg PO DAILY #90 tab 12/14/23 carvediloL [Coreg*] 12.5 mg PO BID-W/MEALS tab 12/14/23 Allergies Allergy/AdvReac Type Severity Reaction Status Date / Time blue dye AdvReac Rapid Verified 12/17/23 10:54 Heart Rate Review of Systems ROS Other: All systems not noted in ROS Statement are negative. <Juyd Grey - Last Filed: 12/17/23 10:33> ROS Other: All systems not noted in ROS Statement are negative. <Han Clark - Last Filed: 12/17/23 14:34> ROS Statement: Those systems with pertinent positive or pertinent negative responses have been documented in the HPI. Past Medical History Past Medical History: Coronary Artery Disease (CAD), Diabetes Mellitus Additional Past Medical History / Comment(s): pt type 1 diabetes Last Myocardial Infarction Date:: 2021 History of Any Multi-Drug Resistant Organisms: None Reported Past Surgical History: Orthopedic Surgery Additional Past Surgical History / Comment(s): Knee surgey 1993 Past Anesthesia/Blood Transfusion Reactions: No Reported Reaction Past Psychological History: Schizophrenia Smoking Status: Current every day smoker, Vaper Past Alcohol Use History: Occasional Past Drug Use History: Marijuana - Past Family History Father Family Medical History: Coronary Artery Disease (CAD) <Judy Grey - Last Filed: 12/17/23 10:33> General Exam <Judy Grey - Last Filed: 12/17/23 10:33> Limitations: no limitations General appearance: alert, in no apparent distress Head exam: Present: atraumatic, normocephalic, normal inspection Eye exam: Present: normal appearance, PERRL, EOMI. Absent: scleral icterus, conjunctival injection, periorbital swelling ENT exam: Present: normal exam, normal oropharynx, mucous membranes moist Neck exam: Present: normal inspection, full ROM. Absent: tenderness, meningismus, lymphadenopathy Respiratory exam: Present: normal lung sounds bilaterally. Absent: respiratory distress, wheezes, rales, rhonchi, stridor Cardiovascular Exam: Present: regular rate, normal rhythm, normal heart sounds. Absent: systolic murmur, diastolic murmur, rubs, gallop, clicks Neurological exam: Present: alert, oriented X3, CN II-XII intact, reflexes normal. Absent: motor sensory deficit Skin exam: Present: warm, dry, intact, normal color. Absent: rash <Han Clark - Last Filed: 12/17/23 14:34> - General Exam Comments Initial Comments: Visual Physical Exam Vital signs reviewed General: Well-appearing, nontoxic, no acute distress. Head: Normocephalic, atraumatic Eyes: PERRLA, EOMI ENT: Airway patent Chest: Nonlabored breathing Skin: No visual rash, normal skin tone Neuro: Alert and oriented 3 Musculoskeletal: No gross abnormalities (Judy Grey) Course Vital Signs 12/17/23 10:45 Temperature 97.9 F Pulse Rate 81 Respiratory 18 Rate Blood Pressure 165/95 O2 Sat by Pulse 100 Oximetry Medical Decision Making <Judy Grey - Last Filed: 12/17/23 10:33> - Lab Data Result diagrams: 12/17/23 12:24 12/17/23 14:05 <Han Clark - Last Filed: 12/17/23 14:34> - Medical Decision Making I performed the QuickNote portion of this chart. Signed Judy Grey PA-C. (Judy Grey) Was pt. sent in by a medical professional or institution ([facility], STAFF COUNSEL, urgent care, hospital, or residential...) When possible be specific @ -No Did you speak to anyone other than the patient for history (EMS, parent, family, police, friend...)? What history was obtained from this source @ -No Did you review nursing and triage notes (agree or disagree)? Why? @ -I reviewed and agree with nursing and triage notes Were old charts reviewed (outside hosp., previous admission, EMS record, old EKG, old radiological studies, urgent care reports/EKG's, residential records)? Report findings @ -Reviewed laboratory studies and charts Differential Diagnosis (chest pain, altered mental status, abdominal pain women, abdominal pain men, vaginal bleeding, weakness, fever, dyspnea, syncope, headache, dizziness, GI bleed, back pain, seizure, CVA, palpatations, mental health, musculoskeletal)? @ -., neuropathy, hypoglycemia paresthesias EKG interpreted by me (3pts min.). @ -[None X-rays interpreted by me (1pt min.). @ -None done CT interpreted by me (1pt min.). @ -None done U/S interpreted by me (1pt. min.). @ -None done What testing was considered but not performed or refused? (CT, X-rays, U/S, labs)? Why? @ -None What meds were considered but not given or refused? Why? @ -None Did you discuss the management of the patient with other professionals (professionals i.e. DrJ Carlos, PA, STAFF COUNSEL, lab, RT, psych nurse, social work lecturer, instant printer operator, teacher, adult probation officer, lead case manager)? Give summary @ -No Was smoking cessation discussed for >3mins.? @ -No Was critical care preformed (if so, how long)? @ -No Were there social determinants of health that impacted care today? How? (Homelessness, low income, unemployed, alcoholism, drug addiction, transportation, low edu. Level, literacy, decrease access to med. care, long term, rehab)? @ -No Was there de-escalation of care discussed even if they declined (Discuss DNR or withdrawal of care, Hospice)? DNR status @ -No What co-morbidities impacted this encounter? (DM, HTN, Smoking, COPD, CAD, Cancer, CVA, ARF, Chemo, Hep., AIDS, mental health diagnosis, sleep apnea, morbid obesity)? @ -[Diabetes Was patient admitted / discharged? Hospital course, mention meds given and route, prescriptions, significant lab abnormalities, going to OR and other pertinent info. @ -Discharge patient's laboratory studies only revealed mild hyperglycemia. The symptoms may related to uncontrolled diabetes, dehydration, neuropathy. Patient feels improved at this time will be discharged in stable condition. Undiagnosed new problem with uncertain prognosis? @ -No Drug Therapy requiring intensive monitoring for toxicity (Heparin, Nitro, Insulin, Cardizem)? @ -No Were any procedures done? @ -No Diagnosis/symptom? @ -Hand pain, neuropathy Acute, or Chronic, or Acute on Chronic? @ -Acute Uncomplicated (without systemic symptoms) or Complicated (systemic symptoms)? @ -Uncomplicated Side effects of treatment? @ -No Exacerbation, Progression, or Severe Exacerbation? @ -No Poses a threat to life or bodily function? How? (Chest pain, [place], [place], pneumonia, PE, COPD, DKA, ARF, appy, cholecystitis, CVA, Diverticulitis, Homicidal, Lary cidal, threat to staff... and all critical care pts) @ -No (Han Clark) - Lab Data Lab Results 12/17/23 12/17/23 12/17/23 Range/Units 10:52 12:24 14:05 WBC 6.2 (3.8-10.6) k/uL RBC 5.06 (4.30-5.90) m/uL Hgb 15.0 (13.0-17.5) gm/dL Hct 45.5 (39.0-53.0) % MCV 89.8 (80.0-100.0) fL MCH 29.7 (25.0-35.0) pg MCHC 33.1 (31.0-37.0) g/dL RDW 13.5 (11.5-15.5) % Plt Count 257 (150-450) k/uL MPV 9.6 Neutrophils % 53 % Lymphocytes % 34 % Monocytes % 8 % Eosinophils % 3 % Basophils % 1 % Neutrophils # 3.3 (1.3-7.7) k/uL Lymphocytes # 2.1 (1.0-4.8) k/uL Monocytes # 0.5 (0-1.0) k/uL Eosinophils # 0.2 (0-0.7) k/uL Basophils # 0.0 (0-0.2) k/uL Sodium 138 (137-145) mmol/L Potassium 4.3 (3.5-5.1) mmol/L Chloride 105 (98-107) mmol/L Carbon Dioxide 29 (22-30) mmol/L Anion Gap 4 mmol/L BUN 24 H (9-20) mg/dL Creatinine 1.15 (0.66-1.25) mg/dL Est GFR (CKD-EPI)AfAm 88 (>60 ml/min/1.73 sqM) Est GFR (CKD-EPI)NonAf 76 (>60 ml/min/1.73 sqM) Glucose 268 H (74-99) mg/dL POC Glucose (mg/dL) 288 H (70-110) mg/dL POC Glu Coal Cutter ID Sandra, Connie Calcium 8.6 (8.4-10.2) mg/dL Magnesium 1.8 (1.6-2.3) mg/dL Total Bilirubin 0.8 (0.2-1.3) mg/dL AST 25 (17-59) U/L ALT 18 (4-49) U/L Alkaline Phosphatase 101 (38-126) U/L Total Protein 6.0 L (6.3-8.2) g/dL Albumin 3.1 L (3.5-5.0) g/dL Disposition <Judy Grey - Last Filed: 12/17/23 10:33> Is patient prescribed a controlled substance at d/c from ED?: No Time of Disposition: 14:31 <Han Clark - Last Filed: 12/17/23 14:34> Clinical Impression: Hyperglycemia, Neuropathy Disposition: HOME SELF-CARE Condition: Stable Additional Instructions: Please return to the Emergency Department if symptoms worsen or any other c oncerns. Referrals: None,Stated [Primary Care Provider] - 1-2 days
[2023-12-17 10:55] LABS: Glucose,Whole Blood 288 mg/dL (70-110)
[2023-12-17] MEDS: KETOROLAC 15 MG/ML 1 ML VIAL IVP STA (12:29)
[2023-12-17] MEDS: SODIUM CHLORIDE 0.9% 1,000 ML IV ONE (12:30)
[2023-12-17 12:34] LABS: Basophils % (A) 1 %; Eosinophils # (A) 0.2 k/uL (0-0.7); Eosinophils % (A) 3 %; HCT 45.5 % (39.0-53.0); Lymphocytes # (A) 2.1 k/uL (1.0-4.8); Lymphocytes % (A) 34 %; MCH 29.7 pg (25.0-35.0); MCHC 33.1 g/dL (31.0-37.0); MCV 89.8 fL (80.0-100.0); Mean Platelet Volume 9.6; Monocytes # (A) 0.5 k/uL (0-1.0); Monocytes % (A) 8 %; Neutrophils # (A) 3.3 k/uL (1.3-7.7); Neutrophils % (A) 53 %; Platelet Count 257 k/uL (150-450); RBC 5.06 m/uL (4.30-5.90); RDW 13.5 % (11.5-15.5); WBC 6.2 k/uL (3.8-10.6)
[2023-12-17 14:25] LABS: ALT 18 U/L (4-49); AST 25 U/L (17-59); African American GFR (CKD) 88 (>60 ml/min/1.73 sqM); Albumin 3.1 g/dL (3.5-5.0); Alkaline Phosphatase 101 U/L (38-126); Anion Gap 4 mmol/L; Blood Urea Nitrogen 24 mg/dL (9-20); Calcium 8.6 mg/dL (8.4-10.2); Carbon Dioxide 29 mmol/L (22-30); Chloride 105 mmol/L (98-107); Glucose 268 mg/dL (74-99); Magnesium 1.8 mg/dL (1.6-2.3); Non-African American GFR(CKD) 76 (>60 ml/min/1.73 sqM); Potassium 4.3 mmol/L (3.5-5.1); Sodium 138 mmol/L (137-145); Total Bilirubin 0.8 mg/dL (0.2-1.3)
[2023-12-17 14:51] VITALS: BP 160/85; PULSE 87; RESP 16; TEMP 98.7
== END 2023-12-17 14:51 | disposition home or self-care (01) ==
LOC: EC 10:12
DX: E10.42 Type 1 diabetes mellitus with diabetic polyneuropathy (principal); E10.65 Type 1 diabetes mellitus with hyperglycemia; I25.10 Atherosclerotic heart disease of native coronary artery without angina pectoris; I25.2 Old myocardial infarction; F17.290 Nicotine dependence, other tobacco product, uncomplicated; Z79.4 Long term (current) use of insulin; Z91.018 Allergy to other foods
CPT/HCPCS: 36415; 80053; 83735; 85025; 99283; 96374; 96361; J1885

== ENCOUNTER 2023-12-31 02:39 | Emergency (ER) | payer OTHER ==
[2023-12-31 03:12] LABS: Basophils % (A) 1 %; Eosinophils # (A) 0.2 k/uL (0-0.7); Eosinophils % (A) 3 %; HCT 44.9 % (39.0-53.0); HGB 15.3 gm/dL (13.0-17.5); Lymphocytes # (A) 2.7 k/uL (1.0-4.8); Lymphocytes % (A) 38 %; MCH 30.7 pg (25.0-35.0); MCHC 34.1 g/dL (31.0-37.0); Monocytes # (A) 0.5 k/uL (0-1.0); Monocytes % (A) 6 %; Neutrophils # (A) 3.7 k/uL (1.3-7.7); Neutrophils % (A) 51 %; Platelet Count 222 k/uL (150-450); RBC 4.99 m/uL (4.30-5.90); RDW 13.3 % (11.5-15.5); WBC 7.2 k/uL (3.8-10.6)
[2023-12-31 03:16] VITALS: RESP 16; TEMP 98
[2023-12-31 03:20] LABS: ALT 21 U/L (4-49); AST 23 U/L (17-59); African American GFR (CKD) >90 (>60 ml/min/1.73 sqM); Albumin 3.5 g/dL (3.5-5.0); Alkaline Phosphatase 109 U/L (38-126); Anion Gap 2 mmol/L; Blood Urea Nitrogen 24 mg/dL (9-20); Calcium 9.2 mg/dL (8.4-10.2); Carbon Dioxide 30 mmol/L (22-30); Chloride 103 mmol/L (98-107); Glucose 229 mg/dL (74-99); Magnesium 1.8 mg/dL (1.6-2.3); Non-African American GFR(CKD) 83 (>60 ml/min/1.73 sqM); Potassium 3.7 mmol/L (3.5-5.1); Sodium 135 mmol/L (137-145); Total Bilirubin 0.6 mg/dL (0.2-1.3); Total Protein 6.4 g/dL (6.3-8.2)
--- NOTE | 2023-12-31 03:22 | ED ---
General Adult HPI - General Chief complaint: Chest Pain Stated complaint: Chest Pain Time Seen by Provider: 12/31/23 02:48 Source: patient, RN notes reviewed, old records reviewed Mode of arrival: ambulatory Limitations: no limitations - History of Present Illness Initial comments: 48-year-old male history of hypertension, diabetes, coronary artery disease presenting for evaluation of left-sided chest pain. Pain lasted just several minutes and is currently resolved. Patient denies any symptoms at the time my evaluation. He does have known coronary artery disease and states he is compliant with his medication. He does continue to smoke. No associated vomiting or diaphoresis. The pain did not radiate. - Related Data Previous Rx's Medication Instructions Recorded Insulin Detemir (Levemir) [Levemir] 30 unit SQ HS #7 each 09/02/23 Aspirin 81 mg PO DAILY #90 tab 11/12/23 Atorvastatin [Lipitor] 40 mg PO DAILY #90 tab 11/12/23 Famotidine [Pepcid] 20 mg PO BID #28 tablet 11/26/23 Mag Hydrox/Al Hydrox/Simeth 10 - 20 ml PO QID PRN #473 ml 12/07/23 [Maalox] Clopidogrel [Plavix] 75 mg PO DAILY #90 tab 12/14/23 Losartan [Cozaar] 50 mg PO DAILY #90 tab 12/14/23 carvediloL [Coreg*] 12.5 mg PO BID-W/MEALS tab 12/14/23 Acetaminophen Tab [Tylenol] 500 mg PO Q6H PRN #60 tablet 12/22/23 Allergies Allergy/AdvReac Type Severity Reaction Status Date / Time blue dye AdvReac Rapid Verified 12/31/23 02:46 Heart Rate Review of Systems ROS Statement: Those systems with pertinent positive or pertinent negative responses have been documented in the HPI. ROS Other: All systems not noted in ROS Statement are negative. Past Medical History Past Medical History: Coronary Artery Disease (CAD), Diabetes Mellitus Additional Past Medical History / Comment(s): pt type 1 diabetes Last Myocardial Infarction Date:: 2021 History of Any Multi-Drug Resistant Organisms: None Reported Past Surgical History: Orthopedic Surgery Additional Past Surgical History / Comment(s): Knee surgey 1993 Past Anesthesia/Blood Transfusion Reactions: No Reported Reaction Past Psychological History: Schizophrenia Smoking Status: Current every day smoker, Vaper Past Alcohol Use History: Occasional Past Drug Use History: Marijuana - Past Family History Father Family Medical History: Coronary Artery Disease (CAD) General Exam Limitations: no limitations General appearance: alert, in no apparent distress Head exam: Present: atraumatic, normocephalic Eye exam: Present: normal appearance, PERRL ENT exam: Present: normal exam Neck exam: Present: normal inspection. Absent: tenderness, meningismus Respiratory exam: Present: normal lung sounds bilaterally. Absent: respiratory distress, wheezes Cardiovascular Exam: Present: regular rate, normal rhythm GI/Abdominal exam: Present: soft. Absent: distended, tenderness, guarding Extremities exam: Present: normal inspection, normal capillary refill Neurological exam: Present: alert, oriented X3 Psychiatric exam: Present: normal affect, normal mood Skin exam: Present: warm, dry. Absent: cyanosis, diaphoretic Course Vital Signs 12/31/23 12/31/23 12/31/23 02:44 03:15 04:48 Temperature 98 F Pulse Rate 91 81 75 Respiratory 18 16 16 Rate Blood Pressure 173/96 189/119 177/102 O2 Sat by Pulse 100 99 100 Oximetry Medical Decision Making - Medical Decision Making Was pt. sent in by a medical professional or institution (, PA, BOILER TENDERS SUPERVISOR, urgent care, hospital, or residential...) When possible be specific @ -No Did you speak to anyone other than the patient for history (EMS, parent, family, police, friend...)? What history was obtained from this source @ -No Did you review nursing and triage notes (agree or disagree)? Why? @ -I reviewed and agree with nursing and triage notes Were old charts reviewed (outside hosp., previous admission, EMS record, old EKG, old radiological studies, urgent care reports/EKG's, residential records)? Report findings @ -No old charts were reviewed Differential Diagnosis (chest pain, altered mental status, abdominal pain women, abdominal pain men, vaginal bleeding, weakness, fever, dyspnea, syncope, headache, dizziness, GI bleed, back pain, seizure, CVA, palpatations, mental health, musculoskeletal)? @Differential Chest Pain: Stable Angina, Unstable Angina, STEMI, NSTEMI Aortic Dissection, Pneumothorax, Musculoskeletal, Esophageal Spasm GERD, Cholecystitis, Pancreatitis, Zoster, this is not meant to be an all-inclusive list. EKG interpreted by me (3pts min.). @ -EKG sinus rhythm rate of 84, NV interval 155, QRS duration 91, QTc [address] segment elevation. X-rays interpreted by me (1pt min.). @ -Chest x-ray negative for acute cardiopulmonary disease CT interpreted by me (1pt min.). @ -None done U/S interpreted by me (1pt. min.). @ -None done What testing was considered but not performed or refused? (CT, X-rays, U/S, labs)? Why? @ -None What meds were considered but not given or refused? Why? @ -None Did you discuss the management of the patient with other professionals (professionals i.e. DrJ Carlos, PA, BOILER TENDERS SUPERVISOR, lab, RT, psych nurse, social service agency director, intellectual property lawyer, teacher, credit risk review officer, field nurse case manager)? Give summary @ -No Was smoking cessation discussed for >3mins.? @ -No Was critical care preformed (if so, how long)? @ -No Were there social determinants of health that impacted care today? How? (Homelessness, low income, unemployed, alcoholism, drug addiction, transportat ion, low edu. Level, literacy, decrease access to med. care, prison, rehab)? @ -No Was there de-escalation of care discussed even if they declined (Discuss DNR or withdrawal of care, Hospice)? DNR status @ -No What co-morbidities impacted this encounter? (DM, HTN, Smoking, COPD, CAD, Cancer, CVA, ARF, Chemo, Hep., AIDS, mental health diagnosis, sleep apnea, morbid obesity)? @ -[Hypertension, diabetes Was patient admitted / discharged? Hospital course, mention meds given and route, prescriptions, significant lab abnormalities, going to OR and other pertinent info. @ -48-year-old male presenting with a brief episode of chest discomfort. EKG is sinus rhythm without ST segment elevation. Chest x-ray is clear. He has a normal CBC, CMP showing hyperglycemia without electrolyte abnormality. Initial troponin and 3-hour troponin are both negative. Patient remained chest pain- free. He is stable for discharge at this time with close outpatient follow-up. Return parameters discussed. Undiagnosed new problem with uncertain prognosis? @ -No Drug Therapy requiring intensive monitoring for toxicity (Heparin, Nitro, Insulin, Cardizem)? @ -No Were any procedures done? @ -No Diagnosis/symptom? @ -[Chest pain, resolved Acute, or Chronic, or Acute on Chronic? @ -Acute on chronic Uncomplicated (without systemic symptoms) or Complicated (systemic symptoms)? @ -[default Side effects of treatment? @ -No Exacerbation, Progression, or Severe Exacerbation? @ -No Poses a threat to life or bodily function? How? (Chest pain, [place], [place], pneumonia, PE, COPD, DKA, ARF, appy, cholecystitis, CVA, Diverticulitis, Homicidal, Suicidal, threat to staff... and all critical care pts) @ -[Low risk at this time - Lab Data Result diagrams: 12/31/23 03:03 12/31/23 03:03 Lab Results 12/31/23 12/31/23 12/31/23 Range/Units 03:03 03:03 03:03 WBC 7.2 (3.8-10.6) k/uL RBC 4.99 (4.30-5.90) m/uL Hgb 15.3 (13.0-17.5) gm/dL Hct 44.9 (39.0-53.0) % MCV 90.0 (80.0-100.0) fL MCH 30.7 (25.0-35.0) pg MCHC 34.1 (31.0-37.0) g/dL RDW 13.3 (11.5-15.5) % Plt Count 222 (150-450) k/uL MPV 9.0 Neutrophils % 51 % Lymphocytes % 38 % Monocytes % 6 % Eosinophils % 3 % Basophils % 1 % Neutrophils # 3.7 (1.3-7.7) k/uL Lymphocytes # 2.7 (1.0-4.8) k/uL Monocytes # 0.5 (0-1.0) k/uL Eosinophils # 0.2 (0-0.7) k/uL Basophils # 0.0 (0-0.2) k/uL PT 10.1 (10.0-12.5) sec INR 0.9 (<1.2) APTT 27.0 (22.0-30.0) sec Sodium 135 L (137-145) mmol/L Potassium 3.7 (3.5-5.1) mmol/L Chloride 103 (98-107) mmol/L Carbon Dioxide 30 (22-30) mmol/L Anion Gap 2 mmol/L BUN 24 H (9-20) mg/dL Creatinine 1.07 (0.66-1.25) mg/dL Est GFR (CKD-EPI)AfAm >90 (>60 ml/min/1.73 sqM) Est GFR (CKD-EPI)NonAf 83 (>60 ml/min/1.73 sqM) Glucose 229 H (74-99) mg/dL Calcium 9.2 (8.4-10.2) mg/dL Magnesium 1.8 (1.6-2.3) mg/dL Total Bilirubin 0.6 (0.2-1.3) mg/dL AST 23 (17-59) U/L ALT 21 (4-49) U/L Alkaline Phosphatase 109 (38-126) U/L Troponin I (0.000-0.034) ng/mL Total Protein 6.4 (6.3-8.2) g/dL Albumin 3.5 (3.5-5.0) g/dL 12/31/23 Range/Units 03:03 WBC (3.8-10.6) k/uL RBC (4.30-5.90) m/uL Hgb (13.0-17.5) gm/dL Hct (39.0-53.0) % MCV (80.0-100.0) fL MCH (25.0-35.0) pg MCHC (31.0-37.0) g/dL RDW (11.5-15.5) % Plt Count (150-450) k/uL MPV Neutrophils % % Lymphocytes % % Monocytes % % Eosinophils % % Basophils % % Neutrophils # (1.3-7.7) k/uL Lymphocytes # (1.0-4.8) k/uL Monocytes # (0-1.0) k/uL Eosinophils # (0-0.7) k/uL Basophils # (0-0.2) k/uL PT (10.0-12.5) sec INR (<1.2) APTT (22.0-30.0) sec Sodium (137-145) mmol/L Potassium (3.5-5.1) mmol/L Chloride (98-107) mmol/L Carbon Dioxide (22-30) mmol/L Anion Gap mmol/L BUN (9-20) mg/dL Creatinine (0.66-1.25) mg/dL Est GFR (CKD-EPI)AfAm (>60 ml/min/1.73 sqM) Est GFR (CKD-EPI)NonAf (>60 ml/min/1.73 sqM) Glucose (74-99) mg/dL Calcium (8.4-10.2) mg/dL Magnesium (1.6-2.3) mg/dL Total Bilirubin (0.2-1.3) mg/dL AST (17-59) U/L ALT (4-49) U/L Alkaline Phosphatase (38-126) U/L Troponin I <0.012 (0.000-0.034) ng/mL Total Protein (6.3-8.2) g/dL Albumin (3.5-5.0) g/dL Disposition Clinical Impression: Chest pain Disposition: HOME SELF-CARE Condition: Fair Instructions (If sedation given, give patient instructions): Chest Pain (ED) Is patient prescribed a controlled substance at d/c from ED?: No Referrals: None,Stated [Primary Care Provider] - 1-2 days Juice Bangura MD [STAFF PHYSICIAN] - 1-2 days Time of Disposition: 06:00
[2023-12-31] MEDS: LOSARTAN 50 MG TAB PO STA (03:54)
[2023-12-31] MEDS: SODIUM CHLORIDE 0.9% 500 ML 500 ML IV ONE (03:55)
[2023-12-31 04:03] LABS: INR 0.9 (<1.2); Prothrombin Time 10.1 sec (10.0-12.5)
--- NOTE | 2023-12-31 04:08 | XR ---
EXAM: XR Chest, 2 Views CLINICAL HISTORY: ITS.REASON XR Reason: Chest Pain TECHNIQUE: Frontal and lateral views of the chest. COMPARISON: No relevant prior studies available. FINDINGS: Lungs: No consolidation or mass. Pleural space: No effusion. Heart: No cardiomegaly. Bones/joints: No acute findings. IMPRESSION: No acute cardiopulmonary process.
[2023-12-31 05:20] VITALS: BP 177/102; PULSE 75
== END 2023-12-31 05:44 | disposition home or self-care (01) ==
LOC: EC 02:39
DX: R07.89 Other chest pain (principal); I25.10 Atherosclerotic heart disease of native coronary artery without angina pectoris; F17.290 Nicotine dependence, other tobacco product, uncomplicated; F12.90 Cannabis use, unspecified, uncomplicated; I10 Essential (primary) hypertension; E11.9 Type 2 diabetes mellitus without complications; Z79.4 Long term (current) use of insulin; Z79.82 Long term (current) use of aspirin; Z79.02 Long term (current) use of antithrombotics/antiplatelets
CPT/HCPCS: 36415; 71046; 80053; 83735; 84484; 85025; 85610; 85730; 93005; 99285

== ENCOUNTER 2024-01-02 04:45 | Emergency (ER) | payer OTHER ==
[2024-01-02 05:07] VITALS: BP 198/105; PULSE 86; RESP 18; TEMP 97.9
--- NOTE | 2024-01-02 05:08 | ED ---
Chest Pain HPI - General Source: patient Mode of arrival: wheelchair Limitations: no limitations <Jose A Fatima - Last Filed: 01/02/24 05:08> - General Source: patient, RN notes reviewed Mode of arrival: ambulatory Limitations: no limitations <Han Clark - Last Filed: 01/02/24 06:36> - General Chief Complaint: Chest Pain Stated Complaint: chest pain seizure Time Seen by Provider: 01/02/24 05:08 - History of Present Illness Initial Comments: 48-year-old male presents emergency department with chief complaint of shaking episode. Patient states that he was at home states he had an episode where he was shaking he denies any associated fever chills cough cold-like symptoms. He states he believes he had a seizure though he states he remembers the whole event and states only lasted a few seconds. Patient denies any headache, dizziness. Patient is known type I diabetic has not given himself any recent insulin. States he had some pain in her ribs denies any anterior chest pain bentley t radiates denies any abdominal pain denies nausea vomit diarrhea constipation he states he has no complaints at this time. (Han Clark) - Related Data Previous Rx's Medication Instructions Recorded Insulin Detemir (Levemir) [Levemir] 30 unit SQ HS #7 each 09/02/23 Aspirin 81 mg PO DAILY #90 tab 11/12/23 Atorvastatin [Lipitor] 40 mg PO DAILY #90 tab 11/12/23 Famotidine [Pepcid] 20 mg PO BID #28 tablet 11/26/23 Mag Hydrox/Al Hydrox/Simeth 10 - 20 ml PO QID PRN #473 ml 12/07/23 [Maalox] Clopidogrel [Plavix] 75 mg PO DAILY #90 tab 12/14/23 Losartan [Cozaar] 50 mg PO DAILY #90 tab 12/14/23 carvediloL [Coreg*] 12.5 mg PO BID-W/MEALS tab 12/14/23 Acetaminophen Tab [Tylenol] 500 mg PO Q6H PRN #60 tablet 12/22/23 Allergies Allergy/AdvReac Type Severity Reaction Status Date / Time blue dye AdvReac Rapid Verified 01/02/24 04:51 Heart Rate Review of Systems ROS Other: All systems not noted in ROS Statement are negative. <Jose A Fatima B - Last Filed: 01/02/24 05:08> ROS Other: All systems not noted in ROS Statement are negative. <Han Clark - Last Filed: 01/02/24 06:36> ROS Statement: Those systems with pertinent positive or pertinent negative responses have been documented in the HPI. EKG Findings - EKG Comments: EKG Findings:: EKG is sinus 80 WV 157 QRS 91 QTc 428 - EKG Results: EKG: interpreted by ERMD <Jose A Fatima - Last Filed: 01/02/24 05:08> - EKG Comments: EKG Findings:: Ekg at performed at 4.55 sinus rate 80 WV 157, QRS 91, QT/SIw287/428 - EKG Results: EKG: interpreted by ERMD <Han Clark - Last Filed: 01/02/24 06:36> Past Medical History Past Medical History: Coronary Artery Disease (CAD), Diabetes Mellitus Additional Past Medical History / Comment(s): pt type 1 diabetes Last Myocardial Infarction Date:: 2021 History of Any Multi-Drug Resistant Organisms: None Reported Past Surgical History: Orthopedic Surgery Additional Past Surgical History / Comment(s): Knee surgey 1993 Past Anesthesia/Blood Transfusion Reactions: No Reported Reaction Past Psychological History: Schizophrenia Smoking Status: Current every day smoker, Vaper Past Alcohol Use History: Occasional Past Drug Use History: Marijuana - Past Family History Father Family Medical History: Coronary Artery Disease (CAD) <SophieharrisJose A Raul - Last Filed: 01/02/24 05:08> General Exam Limitations: no limitations <SophieharrisMichaele Raul - Last Filed: 01/02/24 05:08> General appearance: alert, in no apparent distress Head exam: Present: atraumatic, normocephalic, normal inspection Eye exam: Present: normal appearance, PERRL, EOMI. Absent: scleral icterus, conjunctival injection, periorbital swelling ENT exam: Present: normal exam, normal oropharynx, mucous membranes moist Neck exam: Present: normal inspection, full ROM. Absent: tenderness, meningismus, lymphadenopathy Respiratory exam: Present: normal lung sounds bilaterally. Absent: respiratory distress, wheezes, rales, rhonchi, stridor Cardiovascular Exam: Present: regular rate, normal rhythm, normal heart sounds. Absent: systolic murmur, diastolic murmur, rubs, gallop, clicks Neurological exam: Present: alert, oriented X3, CN II-XII intact <Han Clark - Last Filed: 01/02/24 06:36> Course Vital Signs 01/02/24 04:47 Temperature 97.9 F Pulse Rate 86 Respiratory 18 Rate Blood Pressure 198/105 O2 Sat by Pulse 98 Oximetry Chest Pain MDM <Han Clark - Last Filed: 01/02/24 06:36> - MDM Was pt. sent in by a medical professional or institution (, PA, UI DEVELOPER WITH ANGULAR JS, urgent care, hospital, or correction...) When possible be specific @ -No Did you speak to anyone other than the patient for history (EMS, parent, family, police, friend...)? What history was obtained from this source @ -No Did you review nursing and triage notes (agree or disagree)? Why? @ -I reviewed and agree with nursing and triage notes Were old charts reviewed (outside hosp., previous admission, EMS record, old EKG, old radiological studies, urgent care reports/EKG's, correction records)? Report findings @ -[Recent blood work Differential Diagnosis (chest pain, altered mental status, abdominal pain women, abdominal pain men, vaginal bleeding, weakness, fever, dyspnea, syncope, headache, dizziness, GI bleed, back pain, seizure, CVA, palpatations, mental health, musculoskeletal)? @ -Differential Chest Pain: Stable Angina, Unstable Angina, STEMI, NSTEMI Aortic Dissection, Pneumothorax, Musculoskeletal, Esophageal Spasm GERD, Cholecystitis, Pancreatitis, Zoster, this is not meant to be an all-inclusive list. EKG interpreted by me (3pts min.). @ -[As above X-rays interpreted by me (1pt min.). @ -[Chest x-ray shows no acute cardiopulmonary process CT interpreted by me (1pt min.). @ -None done U/S interpreted by me (1pt. min.). @ -None done What testing was considered but not performed or refused? (CT, X-rays, U/S, labs)? Why? @ -None What meds were considered but not given or refused? Why? @ -None Did you discuss the management of the patient with other professionals (professionals i.e. , PA, UI DEVELOPER WITH [employer]GULAR JS, lab, RT, psych nurse, director of social services, panel raiser operator, teacher, supervisory cbp officer, medical case worker)? Give summary @ -No Was smoking cessation discussed for >3mins.? @ -No Was critical care preformed (if so, how long)? @ -No Were there social determinants of health that impacted care today? How? (Homelessness, low income, unemployed, alcoholism, drug addiction, transportation, low edu. Level, literacy, decrease access to med. care, fpc, rehab)? @ -No Was there de-escalation of care discussed even if they declined (Discuss DNR or withdrawal of care, Hospice)? DNR status @ -No What co-morbidities impacted this encounter? (DM, HTN, Smoking, COPD, CAD, Cancer, CVA, ARF, Chemo, Hep., AIDS, mental health diagnosis, sleep apnea, morbid obesity)? @ -[Diabetes Was patient admitted / discharged? Hospital course, mention meds given and route, prescriptions, significant lab abnormalities, going to OR and other pertinent info. @ -Discharged patient had full workup with no acute findings. Discussed that this did not sound like a seizure as he was awake alert and orientated he had no postictal state and has no complaints upon arrival he was found to have mild hypertension, elevated blood sugar he refuses insulin and refused repeat vitals which she yelled at staff not to touch his arm. Patient recommended himself insulin he was given follow-up and information regarding neurology though he states he will not see a neurologist as "they lie".. Patient updated on lab results discharged in stable condition Undiagnosed new problem with uncertain prognosis? @ -No Drug Therapy requiring intensive monitoring for toxicity (Heparin, Nitro, Insulin, Cardizem)? @ -No Were any procedures done? @ -No Diagnosis/symptom? @ -Shaking episode Acute, or Chronic, or Acute on Chronic? @ -Acute Uncomplicated (without systemic symptoms) or Complicated (systemic symptoms)? @ -Uncomplicated Side effects of treatment? @ -No Exacerbation, Progression, or Severe Exacerbation? @ -No Poses a threat to life or bodily function? How? (Chest pain, [place], [place], pneumonia, PE, COPD, DKA, ARF, appy, cholecystitis, CVA, Diverticulitis, Homicidal, Suicidal, threat to staff... and all critical care pts) @ -No (Han Clark) Disposition <Jose A Fatima - Last Filed: 01/02/24 05:08> Is patient prescribed a controlled substance at d/c from ED?: No Time of Disposition: 06:27 <Han Clark - Last Filed: 01/02/24 06:36> Clinical Impression: Episode of shaking Disposition: HOME SELF-CARE Condition: Stable Additional Instructions: Please return to the Emergency Department if symptoms worsen or any other concerns. Referrals: None,Stated [Primary Care Provider] - 1-2 days Adam Ray DO [STAFF PHYSICIAN] - 1-2 days
[2024-01-02 05:09] LABS: Basophils % (A) 1 %; Eosinophils # (A) 0.2 k/uL (0-0.7); Eosinophils % (A) 2 %; HCT 43.1 % (39.0-53.0); HGB 14.3 gm/dL (13.0-17.5); Lymphocytes # (A) 2.7 k/uL (1.0-4.8); Lymphocytes % (A) 37 %; MCH 30.2 pg (25.0-35.0); MCHC 33.2 g/dL (31.0-37.0); MCV 91.1 fL (80.0-100.0); Mean Platelet Volume 8.7; Monocytes # (A) 0.4 k/uL (0-1.0); Monocytes % (A) 6 %; Neutrophils # (A) 3.8 k/uL (1.3-7.7); Neutrophils % (A) 52 %; Platelet Count 222 k/uL (150-450); RBC 4.73 m/uL (4.30-5.90); RDW 13.4 % (11.5-15.5); WBC 7.2 k/uL (3.8-10.6)
--- NOTE | 2024-01-02 05:15 | XR ---
EXAMINATION TYPE: XR chest 2V DATE OF EXAM: 01/02/2024 COMPARISON: Chest x-ray December 31, 2023 HISTORY: Chest pain. TECHNIQUE: Frontal and lateral views of the chest are obtained. FINDINGS: There is no suspicious new focal air space opacity, pleural effusion, or pneumothorax seen . The cardiac silhouette size is stable and within normal limits. The osseous structures are intac t. IMPRESSION: No acute process. No significant change from most recent prior.
[2024-01-02 05:18] LABS: ALT 23 U/L (4-49); AST 36 U/L (17-59); African American GFR (CKD) >90 (>60 ml/min/1.73 sqM); Albumin 3.5 g/dL (3.5-5.0); Alkaline Phosphatase 123 U/L (38-126); Anion Gap 7 mmol/L; Blood Urea Nitrogen 20 mg/dL (9-20); Calcium 8.9 mg/dL (8.4-10.2); Carbon Dioxide 24 mmol/L (22-30); Chloride 104 mmol/L (98-107); Glucose 350 mg/dL (74-99); Magnesium 1.9 mg/dL (1.6-2.3); Non-African American GFR(CKD) >90 (>60 ml/min/1.73 sqM); Potassium 4.2 mmol/L (3.5-5.1); Sodium 135 mmol/L (137-145); Total Bilirubin 0.6 mg/dL (0.2-1.3); Total Protein 6.4 g/dL (6.3-8.2)
[2024-01-02 05:23] LABS: INR 0.9 (<1.2); Partial Thromboplastin Time 27.1 sec (22.0-30.0); Prothrombin Time 10.2 sec (10.0-12.5)
== END 2024-01-02 06:30 | disposition home or self-care (01) ==
LOC: EC 04:45
DX: R25.1 Tremor, unspecified (principal); I25.10 Atherosclerotic heart disease of native coronary artery without angina pectoris; E11.9 Type 2 diabetes mellitus without complications; F17.290 Nicotine dependence, other tobacco product, uncomplicated; F12.90 Cannabis use, unspecified, uncomplicated; Z91.041 Radiographic dye allergy status
CPT/HCPCS: 36415; 71046; 80053; 83735; 84484; 85025; 85610; 85730; 93005; 99285

== ENCOUNTER 2024-01-10 00:07 | Emergency (ER) | payer OTHER ==
--- NOTE | 2024-01-10 00:26 | ED ---
Extremity Problem HPI - General Chief complaint: Skin/Abscess/Foreign Body Stated complaint: toe pain Time Seen by Provider: 01/10/24 00:10 Source: patient, RN notes reviewed, old records reviewed Mode of arrival: ambulatory Limitations: no limitations - History of Present Illness Initial comments: This is a 48-year-old male well-known to this emergency room today. Patient presents today for evaluation of acute right foot pain right foot pain and swelling no history of trauma no history of injury. Patient is having persistent foot pain here in the ER does appear to be along the arch of his foot with some swelling up his right leg. Patient again denies any injury no significant redness or erythema, no warmth noted. Patient's does have history of pain in that right foot without history of gout MD Complaint: extremity pain, joint swelling, joint pain -: days(s) Location: right, lower extremity -: Yes myalgia, Yes arthralgia Radiation: none Severity scale (1-10): 3 Quality: aching Consistency: constant Worsens with: nothing Associated Symptoms: denies other symptoms - Related Data Previous Rx's Medication Instructions Recorded Insulin Detemir (Levemir) [Levemir] 30 unit SQ HS #7 each 09/02/23 Aspirin 81 mg PO DAILY #90 tab 11/12/23 Atorvastatin [Lipitor] 40 mg PO DAILY #90 tab 11/12/23 Famotidine [Pepcid] 20 mg PO BID #28 tablet 11/26/23 Mag Hydrox/Al Hydrox/Simeth 10 - 20 ml PO QID PRN #473 ml 12/07/23 [Maalox] Clopidogrel [Plavix] 75 mg PO DAILY #90 tab 12/14/23 Losartan [Cozaar] 50 mg PO DAILY #90 tab 12/14/23 carvediloL [Coreg*] 12.5 mg PO BID-W/MEALS tab 12/14/23 Acetaminophen Tab [Tylenol] 500 mg PO Q6H PRN #60 tablet 12/22/23 Gabapentin 300 mg PO HS #20 cap 01/19/24 Allergies Allergy/AdvReac Type Severity Reaction Status Date / Time blue dye AdvReac Rapid Verified 01/19/24 05:07 Heart Rate Review of Systems ROS Statement: Those systems with pertinent positive or pertinent negative responses have been documented in the HPI. ROS Other: All systems not noted in ROS Statement are negative. Past Medical History Past Medical History: Coronary Artery Disease (CAD), Chest Pain / Angina, Diabetes Mellitus, Hypertension Additional Past Medical History / Comment(s): pt type 1 diabetes Last Myocardial Infarction Date:: 2021 History of Any Multi-Drug Resistant Organisms: None Reported Past Surgical History: Orthopedic Surgery Additional Past Surgical History / Comment(s): Knee surgey 1993 Past Anesthesia/Blood Transfusion Reactions: No Reported Reaction Past Psychological History: Schizophrenia Smoking Status: Current every day smoker, Vaper Past Alcohol Use History: Occasional Past Drug Use History: Marijuana - Past Family History Father Family Medical History: Coronary Artery Disease (CAD) General Exam Limitations: no limitations General appearance: alert, in no apparent distress Head exam: Present: atraumatic, normocephalic, normal inspection Eye exam: Present: normal appearance, PERRL, EOMI. Absent: scleral icterus, conjunctival injection, periorbital swelling ENT exam: Present: normal exam, mucous membranes moist Neck exam: Present: normal inspection. Absent: tenderness, meningismus, lymphadenopathy Respiratory exam: Present: normal lung sounds bilaterally. Absent: respiratory distress, wheezes, rales, rhonchi, stridor Cardiovascular Exam: Present: regular rate, normal rhythm, normal heart sounds. Absent: systolic murmur, diastolic murmur, rubs, gallop, clicks GI/Abdominal exam: Present: soft, normal bowel sounds. Absent: distended, tenderness, guarding, rebound, rigid Extremities exam: Present: normal inspection, full ROM, normal capillary refill. Absent: tenderness, pedal edema, joint swelling, calf tenderness Back exam: Present: normal inspection Neurological exam: Present: alert, oriented X3, CN II-XII intact Psychiatric exam: Present: normal affect, normal mood Skin exam: Present: warm, dry, intact, normal color. Absent: rash Course Vital Signs 01/10/24 01/10/24 00:08 01:55 Temperature 98.6 F Pulse Rate 87 85 Respiratory 18 18 Rate Blood Pressure 166/99 159/92 O2 Sat by Pulse 100 97 Oximetry - Reevaluation(s) Reevaluation #1: 01/10/24 01:24 Medical records reviewed Reevaluation #2: 01/10/24 01:24 Patient symptoms unchanged Reevaluation #3: 01/10/24 01:24 Patient informed of results and questions answered Reevaluation #4: Was pt. sent in by a medical professional or institution (, [employer], SALES REPRESENTATIVE EDUCATION COURSES, urgent care, hospital, or senior care...) When possible be specific @ -no Did you speak to anyone other than the patient for history (EMS, parent, family, police, friend...)? What history was obtained from this source @ -no Did you review nursing and triage notes (agree or disagree)? Why? @ -agree Are old charts reviewed (outside hosp., previous admission, EMS record, old EKG, old radiological studies, urgent care reports/EKG's, senior care records)? Report findings @ -yes Differential Diagnosis (chest pain, altered mental status, abdominal pain women, abdominal pain men, vaginal bleeding, weakness, fever, dyspnea, syncope, headache, dizziness, GI bleed, back pain, seizure, CVA, palpatations, mental health, musculoskeletal)? @ -prior EKG interpreted by me (3pts min.). @ -no X-rays interpreted by me (1pt min.). @ -yes negative for acute disease CT interpreted by me (1pt min.). @ -no U/S interpreted by me (1pt. min.). @ -no What testing was considered but not performed or refused? (CT, X-rays, U/S, labs)? Why? @ -none What meds were considered but not given or refused? Why? @ -none Did you discuss the management of the patient with other professionals (professionals i.e. , [employer], SALES REPRESENTATIVE EDUCATION COURSES, lab, RT, psych nurse, social service director, kitchen helper, teacher, disability insurance hearing officer, casework specialist)? Give summary @ -no Was smoking cessation discussed for >3mins.? @ -no Was critical care preformed (if so, how long)? @ -no Were there social determinants of health that impacted care today? How? (Homelessness, low income, unemployed, alcoholism, drug addiction, transportation, low edu. Level, literacy, decrease access to med. care, fdc, rehab)? @ -none Was there de-escalation of care discussed even if they declined (Discuss DNR or withdrawal of care, Hospice)? DNR status @ -no What co-morbidities impacted this encounter? (DM, HTN, Smoking, COPD, CAD, Cancer, CVA, ARF, Chemo, Hep., AIDS, mental health diagnosis, sleep apnea, morbid obesity)? @ -none Was patient admitted / discharged? Hospital course, mention meds given and route, prescriptions, significant lab abnormalities, going to OR and other pertinent info. @ - 48 male to ER for evaluation of right foot pain. No acute cause found, x- rays negative patient feels improved and can be discharged home Discharge Undiagnosed new problem with uncertain prognosis? @ -no Drug Therapy requiring intensive monitoring for toxicity (Heparin, Nitro, Insulin, Cardizem)? @ -no Were any procedures done? @ -no Diagnosis/symptom? @ -Right foot pain Acute, or Chronic, or Acute on Chronic? @ -Acute Uncomplicated (without systemic symptoms) or Complicated (systemic symptoms)? @ -Complicated Side effects of treatment? @ -no Exacerbation, Progression, or Severe Exacerbation? @ -exacerbation Poses a threat to life or bodily function? How? (Chest pain, [place], [place], pneumonia, PE, COPD, DKA, ARF, appy, cholecystitis, CVA, Diverticulitis, Homicidal, Suicidal, threat to staff... and all critical care pts) @ -no Medical Decision Making - Medical Decision Making 48 male to ER for evaluation of right foot pain. No acute cause found, x-rays negative patient feels improved and can be discharged home - Radiology Data Radiology results: report reviewed (X-ray of right foot was negative for acute disease), image reviewed Disposition Clinical Impression: Right foot pain Disposition: HOME SELF-CARE Condition: Good Instructions (If sedation given, give patient instructions): Swollen Joint (ED), Metatarsalgia (DC) Is patient prescribed a controlled substance at d/c from ED?: No Referrals: None,Stated [Primary Care Provider] - 1-2 days Time of Disposition: 01:20
[2024-01-10 00:56] VITALS: RESP 18; TEMP 98.6
--- NOTE | 2024-01-10 01:11 | XR ---
EXAMINATION TYPE: XR foot complete RT DATE OF EXAM: 01/10/2024 CLINICAL HISTORY: pain for 3 days. TECHNIQUE: Frontal, lateral, and oblique images of the right foot are obtained. COMPARISON: None FINDINGS: There is no acute fracture/dislocation evident in the right foot. The joint spaces in the right foot appear within normal limits. The overlying soft tissue appears unremarkable. IMPRESSION: As above.
[2024-01-10] MEDS: IBUPROFEN 800 MG TAB PO STA (01:22)
[2024-01-10] MEDS: ACETAMINOPHEN TAB 500 MG TAB PO STA (01:22)
[2024-01-10 02:16] VITALS: BP 159/92; PULSE 85
== END 2024-01-10 01:56 | disposition home or self-care (01) ==
LOC: EC 00:07
DX: M79.671 Pain in right foot (principal); F17.290 Nicotine dependence, other tobacco product, uncomplicated; Z91.018 Allergy to other foods
CPT/HCPCS: 99283

== ENCOUNTER 2024-01-11 05:09 | Emergency (ER) | payer OTHER ==
[2024-01-11 06:01] VITALS: BP 163/106; PULSE 74; RESP 18; TEMP 98.9
--- NOTE | 2024-01-11 06:13 | ED ---
Extremity Problem HPI - General Chief complaint: Extremity Injury, Lower Stated complaint: foot pain Time Seen by Provider: 01/11/24 05:58 Source: patient, RN notes reviewed Mode of arrival: ambulatory Limitations: no limitations - History of Present Illness Initial comments: This is a 48-year-old male who presents to the emergency department for bilater al foot pain. Patient is well-known to this emergency department for the same complaints. This is often related to his peripheral neuropathy from uncontrolled diabetes. He does admit to not being completely compliant with his insulin. Denies any injuries to the feet. States that they both just burn. This largely encompasses the whole foot. He is still able to ambulate. Not taking any medication for his pain. MD Complaint: extremity pain - Related Data Previous Rx's Medication Instructions Recorded Insulin Detemir (Levemir) [Levemir] 30 unit SQ HS #7 each 09/02/23 Aspirin 81 mg PO DAILY #90 tab 11/12/23 Atorvastatin [Lipitor] 40 mg PO DAILY #90 tab 11/12/23 Famotidine [Pepcid] 20 mg PO BID #28 tablet 11/26/23 Mag Hydrox/Al Hydrox/Simeth 10 - 20 ml PO QID PRN #473 ml 12/07/23 [Maalox] Clopidogrel [Plavix] 75 mg PO DAILY #90 tab 12/14/23 Losartan [Cozaar] 50 mg PO DAILY #90 tab 12/14/23 carvediloL [Coreg*] 12.5 mg PO BID-W/MEALS tab 12/14/23 Acetaminophen Tab [Tylenol] 500 mg PO Q6H PRN #60 tablet 12/22/23 Allergies Allergy/AdvReac Type Severity Reaction Status Date / Time blue dye AdvReac Rapid Verified 01/10/24 00:14 Heart Rate Review of Systems ROS Statement: Those systems with pertinent positive or pertinent negative responses have been documented in the HPI. ROS Other: All systems not noted in ROS Statement are negative. Past Medical History Past Medical History: Coronary Artery Disease (CAD), Chest Pain / Angina, Diabetes Mellitus, Hypertension Additional Past Medical History / Comment(s): pt type 1 diabetes Last Myocardial Infarction Date:: 2021 History of Any Multi-Drug Resistant Organisms: None Reported Past Surgical History: Orthopedic Surgery Additional Past Surgical History / Comment(s): Knee surgey 1993 Past Anesthesia/Blood Transfusion Reactions: No Reported Reaction Past Psychological History: Schizophrenia Smoking Status: Current every day smoker, Vaper Past Alcohol Use History: Occasional Past Drug Use History: Marijuana - Past Family History Father Family Medical History: Coronary Artery Disease (CAD) General Exam Limitations: no limitations General appearance: alert, in no apparent distress Head exam: Present: atraumatic, normocephalic, normal inspection Respiratory exam: Present: normal lung sounds bilaterally. Absent: respiratory distress, wheezes, rales, rhonchi, stridor Cardiovascular Exam: Present: regular rate, normal rhythm, normal heart sounds. Absent: systolic murmur, diastolic murmur, rubs, gallop, clicks Extremities exam: Present: other (No swelling or localized tenderness to the bilateral lower extremities. 2+ DP and PT pulses. Full range of motion.) Neurological exam: Present: alert, oriented X3, CN II-XII intact Psychiatric exam: Present: normal affect, normal mood Skin exam: Present: warm, dry, intact, normal color. Absent: rash Course Vital Signs 01/11/24 05:58 Temperature 98.9 F Pulse Rate 74 Respiratory 18 Rate Blood Pressure 163/106 O2 Sat by Pulse 100 Oximetry Medical Decision Making - Medical Decision Making This is a 48-year-old male who presents to the emergency department for lower extremity pain. Was pt. sent in by a medical professional or institution? @ -No Did you speak to anyone other than the patient for history? @ -No Did you review nursing and triage notes? @ -Yes, and I agree, it is accurate with regards to the patient's symptoms. Were old charts reviewed? @ -No Differential Diagnosis? @ -Differential Musculoskeletal: Muscular strain, contusion, ligament sprain, fracture, arthritis, septic arthritis, bursitis, cellulitis, muscle spasm, nerve compression, DVT, arterial occlusion, herpes zoster, electrolyte abnormality, tumor.... This is not meant to be in all inclusive list EKG interpreted by me (3pts min.)? @ -Not obtained X-rays interpreted by me (1pt min.)? @ -Not obtained CT interpreted by me (1pt min.)? @ -Not obtained U/S interpreted by me (1pt. min.)? @ -Not obtained What testing was considered but not performed? (CT, X-rays, U/S, labs)? Why? @ -None What meds were considered but not given? Why? @ -None Did you discuss the management of the patient with other professionals? @ -No Did you reconcile home meds? @ -No Was smoking cessation discussed for >3mins.? @ -No Was critical care preformed (if so, how long)? @ -No Were there social determinants of health that impacted care today? How? (Homelessness, low income, unemployed, alcoholism, drug addiction, transportation, low edu. Level, literacy, decrease access to med. care, [facility], r ehab)? @ -No Was there de-escalation of care discussed even if they declined? (Discuss DNR or withdrawal of care, Hospice)? @ -No What co-morbidities impacted this encounter? (DM, HTN, Smoking, COPD, CAD, Cancer, CVA, Hep., AIDS, mental health diagnosis, sleep apnea, morbid obesity)? @ -DM Was patient admitted / discharged? @ -Discharged. Physical examination of the lower extremities is unremarkable. Patient educated on the need to be compliant with his insulin to slow the progression of peripheral neuropathy. Toradol and Tylenol administered in the emergency department and the patient was discharged home in stable condition. Advised ibuprofen and Tylenol as needed for any additional discomfort. Undiagnosed new problem with uncertain prognosis? @ -None Drug Therapy requiring intensive monitoring for toxicity (Heparin, Nitro, Insulin, Cardizem)? @ -None Were any procedures done? @ -None Diagnosis/symptom? @ -Bilateral Foot Pain Acute, or Chronic, or Acute on Chronic? @ -Chronic Uncomplicated (without systemic symptoms) or Complicated (systemic symptoms)? @ -Uncomplicated Side effects of treatment? @ -None Exacerbation, Progression, or Severe Exacerbation] @ -Stable Poses a threat to life or bodily function? @ -No Return precautions reviewed in depth, the patient is instructed to return to the emergency department with any new, worsening, or concerning symptoms. Patient verbalized understanding. This case was discussed in detail with the attending ED physician, Dr. Fatima. Presentation, findings, and treatment plan discussed in detail as well. Disposition Clinical Impression: Bilateral foot pain Disposition: HOME SELF-CARE Instructions (If sedation given, give patient instructions): Arthralgia (ED) Additional Instructions: Return to the emergency department with any new, worsening, or concerning symptoms. Alternate with ibuprofen and Tylenol as needed for pain relief. Follow up with your primary care provider in 1-2 days. Is patient prescribed a controlled substance at d/c from ED?: No Referrals: None,Stated [Primary Care Provider] - 1-2 days Time of Disposition: 06:25
[2024-01-11] MEDS: ACETAMINOPHEN TAB 500 MG TAB PO STA (06:27)
[2024-01-11] MEDS: KETOROLAC 15 MG/ML 1 ML VIAL IM STA (06:28)
[2024-01-11] MEDS: LIDOCAINE 4% CREAM 5 GM TUBE TOPICAL ONE (07:07)
== END 2024-01-11 07:20 | disposition home or self-care (01) ==
LOC: EC 05:09
DX: M79.671 Pain in right foot (principal); M79.672 Pain in left foot; F17.290 Nicotine dependence, other tobacco product, uncomplicated; Z91.018 Allergy to other foods
CPT/HCPCS: 99283; 96372; J1885

== ENCOUNTER 2024-01-14 21:49 | Emergency (ER) | payer OTHER ==
[2024-01-14 21:57] VITALS: TEMP 98.5
--- NOTE | 2024-01-14 22:32 | ED ---
General Adult HPI - General Chief complaint: Chest Pain Stated complaint: Chest pain Time Seen by Provider: 01/14/24 21:57 Source: patient Mode of arrival: ambulatory Limitations: no limitations - History of Present Illness Initial comments: Dictation was produced using [employer] dictation software. please excuse any grammatical, word or spelling errors. Chief Complaint: 48-year-old male presents to the emergency department chest pain and bilateral foot pain. History of Present Illness: Patient 48-year-old male well-known to emergency department for multiple visitations for chest pain.This is patient's 18th visit in the last 3 months. Patient complaining of usual chest pain. Patient also has secondary complaint of bilateral feet pain. Patient states that the pain is to his left anterior chest. Nonradiating not associated diaphoresis or nausea. Patient has some known coronary artery disease. The ROS documented in this emergency department record has been reviewed and confirmed by me. Those systems with pertinent positive or negative responses have been documented in the HPI. All other systems are other negative and/or noncontributory. - Related Data Previous Rx's Medication Instructions Recorded Insulin Detemir (Levemir) [Levemir] 30 unit SQ HS #7 each 09/02/23 Aspirin 81 mg PO DAILY #90 tab 11/12/23 Atorvastatin [Lipitor] 40 mg PO DAILY #90 tab 11/12/23 Famotidine [Pepcid] 20 mg PO BID #28 tablet 11/26/23 Mag Hydrox/Al Hydrox/Simeth 10 - 20 ml PO QID PRN #473 ml 12/07/23 [Maalox] Clopidogrel [Plavix] 75 mg PO DAILY #90 tab 12/14/23 Losartan [Cozaar] 50 mg PO DAILY #90 tab 12/14/23 carvediloL [Coreg*] 12.5 mg PO BID-W/MEALS tab 12/14/23 Acetaminophen Tab [Tylenol] 500 mg PO Q6H PRN #60 tablet 12/22/23 Allergies Allergy/AdvReac Type Severity Reaction Status Date / Time blue dye AdvReac Rapid Verified 01/14/24 21:52 Heart Rate Review of Systems ROS Statement: Those systems with pertinent positive or pertinent negative responses have been documented in the HPI. ROS Other: All systems not noted in ROS Statement are negative. Past Medical History Past Medical History: Coronary Artery Disease (CAD), Chest Pain / Angina, Diabetes Mellitus, Hypertension Additional Past Medical History / Comment(s): pt type 1 diabetes Last Myocardial Infarction Date:: 2021 History of Any Multi-Drug Resistant Organisms: None Reported Past Surgical History: Orthopedic Surgery Additional Past Surgical History / Comment(s): Knee surgey 1993 Past Anesthesia/Blood Transfusion Reactions: No Reported Reaction Past Psychological History: Schizophrenia Smoking Status: Current every day smoker, Vaper Past Alcohol Use History: Occasional Past Drug Use History: Marijuana - Past Family History Father Family Medical History: Coronary Artery Disease (CAD) General Exam - General Exam Comments Initial Comments: PHYSICAL EXAM: General Impression: Alert and oriented x3, not in acute distress HEENT: Normocephalic atraumatic, extra-ocular movements intact, pupils equal and reactive to light bilaterally, mucous membranes moist. Cardiovascular: Heart regular rate and rhythm Chest: Able to complete full sentences, no retractions, no tachypnea Abdomen: abdomen soft, non-tender, non-distended, no organomegaly Musculoskeletal: Pulses present and equal in all extremities, no peripheral edema Motor: no focal deficits noted Neurological: CN II-XII grossly intact, no focal motor or sensory deficits noted Skin: Intact with no visualized rashes Psych: Normal affect and mood Limitations: no limitations Course Vital Signs 01/14/24 01/14/24 01/14/24 21:50 22:52 23:00 Temperature 98.5 F Pulse Rate 77 81 80 Respiratory 18 18 18 Rate Blood Pressure 186/97 155/77 147/80 O2 Sat by Pulse 100 97 97 Oximetry 01/15/24 01/15/24 01:00 04:00 Temperature Pulse Rate 78 82 Respiratory 18 19 Rate Blood Pressure 148/80 158/84 O2 Sat by Pulse 97 96 Oximetry EKG Findings - EKG Comments: EKG Findings:: My EKG interpretation: Ventricular rate 74, sinus rhythm, SC interval 150, cures 88, QTc 427. No SC prolongation, no QTC prolongation, no ST or T-wave changes noted. Overall, this EKG is unremarkable Medical Decision Making - Medical Decision Making Was pt. sent in by a medical professional or institution (, PA, WELL SERVICE FLOOR WORKER, urgent care, hospital, or assisted...) When possible be specific @ -No Did you speak to anyone other than the patient for history (EMS, parent, family, police, friend...)? What history was obtained from this source @ -No Did you review nursing and triage notes (agree or disagree)? Why? @ -I reviewed and agree with nursing and triage notes Were old charts reviewed (outside hosp., previous admission, EMS record, old EKG, old radiological studies, urgent care reports/EKG's, assisted records)? Report findings @ -No old charts were reviewed Differential Diagnosis (chest pain, altered mental status, abdominal pain women, abdominal pain men, vaginal bleeding, musculoskeletal, weakness, fever, dyspnea, syncope, headache, dizziness, GI bleed, back pain, seizure, CVA, palpatations, mental health)? @ -Differential Chest Pain: Stable Angina, Unstable Angina, STEMI, NSTEMI Aortic Dissection, Pneumothorax, Musculoskeletal, Esophageal Spasm GERD, Cholecystitis, Pancreatitis, Zoster, this is not meant to be an all-inclusive list. EKG interpreted by me (3pts min.). @ -See above X-rays interpreted by me (1pt min.). @ -Chest x-ray is nonacute CT interpreted by me (1pt min.). @ -None done U/S interpreted by me (1pt. min.). @ -None done What testing was considered but not performed or refused? (CT, X-rays, U/S, labs)? Why? @ -None What meds were considered but not given or refused? Why? @ -None Did you discuss the management of the patient with other professionals (professionals i.e. , PA, WELL SERVICE FLOOR WORKER, lab, RT, psych nurse, social contact worker, lusterer, te acher, retirement officer, case preparer and liner)? Give summary @ -No Was smoking cessation discussed for >3mins.? @ -No Was critical care preformed (if so, how long)? @ -No Were there social determinants of health that impacted care today? How? (Homelessness, low income, unemployed, alcoholism, drug addiction, transportation, low edu. Level, literacy, decrease access to med. care, long-term, rehab)? @ -No Was there de-escalation of care discussed even if they declined (Discuss DNR or withdrawal of care, Hospice)? DNR status @ -No What co-morbidities impacted this encounter? (DM, HTN, Smoking, COPD, CAD, C ancer, CVA, ARF, Chemo, Hep., AIDS, mental health diagnosis, sleep apnea, morbid obesity)? @ -None Was patient admitted / discharged? Hospital course, mention meds given and route, prescriptions, significant lab abnormalities, going to OR and other pertinent info. @ -48-year-old male well-known to the emergency department for multiple visitations for chest pain presents to the ER for chest pain. His symptoms are atypical typical features. Vital signs upon arrival are within acceptable limits. Laboratory evaluation obtained. Labs unremarkable. Surgery serial troponins are negative. Patient given aspirin. Patient discharged. Advised follow-up with primary care doctor. Undiagnosed new problem with uncertain prognosis? @ -No Drug Therapy requiring intensive monitoring for toxicity (Heparin, Nitro, Insulin, Cardizem)? @ -No Were any procedures done? @ -No Diagnosis/symptom? Acute, or Chronic, or Acute on Chronic? Uncomplicated (without systemic symptoms) or Complicated (systemic symptoms)? @ -Chest pain Side effects of treatment? @ -No Exacerbation, Progression, or Severe Exacerbation? @ -No Poses a threat to life or bodily function? How? (Chest pain, [place], [place], pneumonia, PE, COPD, DKA, ARF, appy, cholecystitis, CVA, Diverticulitis, Homicidal, Suicidal, threat to staff... and all critical care pts) @ -No - Lab Data Result diagrams: 01/15/24 01:55 01/15/24 01:55 Lab Results 01/15/24 01/15/24 01/15/24 Range/Units 01:55 01:55 01:55 WBC 6.1 (3.8-10.6) k/uL RBC 4.55 (4.30-5.90) m/uL Hgb 13.7 (13.0-17.5) gm/dL Hct 41.3 (39.0-53.0) % MCV 90.7 (80.0-100.0) fL MCH 30.2 (25.0-35.0) pg MCHC 33.2 (31.0-37.0) g/dL RDW 13.4 (11.5-15.5) % Plt Count 206 (150-450) k/uL MPV 9.2 Neutrophils % 45 % Lymphocytes % 43 % Monocytes % 6 % Eosinophils % 3 % Basophils % 1 % Neutrophils # 2.7 (1.3-7.7) k/uL Lymphocytes # 2.6 (1.0-4.8) k/uL Monocytes # 0.4 (0-1.0) k/uL Eosinophils # 0.2 (0-0.7) k/uL Basophils # 0.0 (0-0.2) k/uL PT 10.2 (10.0-12.5) sec INR 0.9 (<1.2) APTT 25.3 (22.0-30.0) sec Sodium 135 L (137-145) mmol/L Potassium 3.9 (3.5-5.1) mmol/L Chloride 108 H (98-107) mmol/L Carbon Dioxide 21 L (22-30) mmol/L Anion Gap 6 mmol/L BUN 20 (9-20) mg/dL Creatinine 1.06 (0.66-1.25) mg/dL Est GFR (CKD-EPI)AfAm >90 (>60 ml/min/1.73 sqM) Est GFR (CKD-EPI)NonAf 84 (>60 ml/min/1.73 sqM) Glucose 323 H (74-99) mg/dL POC Glucose (mg/dL) (70-110) mg/dL POC Glu Tuberculosis Specialist ID Calcium 7.9 L (8.4-10.2) mg/dL Magnesium 1.7 (1.6-2.3) mg/dL Total Bilirubin 0.5 (0.2-1.3) mg/dL AST 19 (17-59) U/L ALT 18 (4-49) U/L Alkaline Phosphatase 96 (38-126) U/L Troponin I (0.000-0.034) ng/mL Total Protein 5.7 L (6.3-8.2) g/dL Albumin 2.9 L (3.5-5.0) g/dL 01/15/24 01/15/24 01/15/24 Range/Units 01:55 03:46 05:04 WBC (3.8-10.6) k/uL RBC (4.30-5.90) m/uL Hgb (13.0-17.5) gm/dL Hct (39.0-53.0) % MCV (80.0-100.0) fL MCH (25.0-35.0) pg MCHC (31.0-37.0) g/dL RDW (11.5-15.5) % Plt Count (150-450) k/uL MPV Neutrophils % % Lymphocytes % % Monocytes % % Eosinophils % % Basophils % % Neutrophils # (1.3-7.7) k/uL Lymphocytes # (1.0-4.8) k/uL Monocytes # (0-1.0) k/uL Eosinophils # (0-0.7) k/uL Basophils # (0-0.2) k/uL PT (10.0-12.5) sec INR (<1.2) APTT (22.0-30.0) sec Sodium (137-145) mmol/L Potassium (3.5-5.1) mmol/L Chloride (98-107) mmol/L Carbon Dioxide (22-30) mmol/L Anion Gap mmol/L BUN (9-20) mg/dL Creatinine (0.66-1.25) mg/dL Est GFR (CKD-EPI)AfAm (>60 ml/min/1.73 sqM) Est GFR (CKD-EPI)NonAf (>60 ml/min/1.73 sqM) Glucose (74-99) mg/dL POC Glucose (mg/dL) 307 H (70-110) mg/dL POC Glu Tuberculosis Specialist ID Magda Horne Calcium (8.4-10.2) mg/dL Magnesium (1.6-2.3) mg/dL Total Bilirubin (0.2-1.3) mg/dL AST (17-59) U/L ALT (4-49) U/L Alkaline Phosphatase (38-126) U/L Troponin I 0.013 <0.012 (0.000-0.034) ng/mL Total Protein (6.3-8.2) g/dL Albumin (3.5-5.0) g/dL Disposition Clinical Impression: Chest pain Disposition: HOME SELF-CARE Condition: Good Instructions (If sedation given, give patient instructions): Chest Pain (ED) Is patient prescribed a controlled substance at d/c from ED?: No Referrals: None,Stated [Primary Care Provider] - 1-2 days Time of Disposition: 06:13
[2024-01-14] MEDS: HYDROcodone/APAP 5-325MG 1 EACH TAB PO STA (23:03)
--- NOTE | 2024-01-14 23:17 | XR ---
EXAM: XR Chest, 2 Views CLINICAL HISTORY: Chest Pain TECHNIQUE: Frontal and lateral views of the chest. COMPARISON: 01-02-2024. FINDINGS: Lungs: No consolidation. No atelectasis. No CHF. Pleural space: No pleural effusion. No pneumothorax. Heart: No cardiomegaly. Mediastinum: Unremarkable. Normal mediastinal contour. Bones/joints: Unremarkable. No acute fracture. IMPRESSION: No acute abnormality.
[2024-01-15 02:06] LABS: Basophils % (A) 1 %; Eosinophils # (A) 0.2 k/uL (0-0.7); Eosinophils % (A) 3 %; HCT 41.3 % (39.0-53.0); HGB 13.7 gm/dL (13.0-17.5); Lymphocytes # (A) 2.6 k/uL (1.0-4.8); Lymphocytes % (A) 43 %; MCH 30.2 pg (25.0-35.0); MCHC 33.2 g/dL (31.0-37.0); MCV 90.7 fL (80.0-100.0); Mean Platelet Volume 9.2; Monocytes # (A) 0.4 k/uL (0-1.0); Monocytes % (A) 6 %; Neutrophils # (A) 2.7 k/uL (1.3-7.7); Neutrophils % (A) 45 %; Platelet Count 206 k/uL (150-450); RBC 4.55 m/uL (4.30-5.90); RDW 13.4 % (11.5-15.5); WBC 6.1 k/uL (3.8-10.6)
[2024-01-15 02:19] LABS: ALT 18 U/L (4-49); AST 19 U/L (17-59); African American GFR (CKD) >90 (>60 ml/min/1.73 sqM); Albumin 2.9 g/dL (3.5-5.0); Alkaline Phosphatase 96 U/L (38-126); Anion Gap 6 mmol/L; Blood Urea Nitrogen 20 mg/dL (9-20); Calcium 7.9 mg/dL (8.4-10.2); Carbon Dioxide 21 mmol/L (22-30); Chloride 108 mmol/L (98-107); Glucose 323 mg/dL (74-99); Magnesium 1.7 mg/dL (1.6-2.3); Non-African American GFR(CKD) 84 (>60 ml/min/1.73 sqM); Potassium 3.9 mmol/L (3.5-5.1); Sodium 135 mmol/L (137-145); Total Bilirubin 0.5 mg/dL (0.2-1.3); Total Protein 5.7 g/dL (6.3-8.2)
[2024-01-15 02:24] LABS: INR 0.9 (<1.2); Partial Thromboplastin Time 25.3 sec (22.0-30.0); Prothrombin Time 10.2 sec (10.0-12.5)
[2024-01-15 03:48] LABS: Glucose,Whole Blood 307 mg/dL (70-110)
[2024-01-15 06:50] VITALS: BP 175/87; PULSE 65; RESP 15
[2024-01-15] MEDS: ASPIRIN 81 MG PO STA (06:52)
== END 2024-01-15 06:52 | disposition home or self-care (01) ==
LOC: EC 21:49
DX: R07.89 Other chest pain (principal); F12.90 Cannabis use, unspecified, uncomplicated; F17.290 Nicotine dependence, other tobacco product, uncomplicated; Z91.041 Radiographic dye allergy status
CPT/HCPCS: 36415; 71046; 80053; 83735; 84484; 85025; 85610; 85730; 93005; 99285

== ENCOUNTER 2024-01-15 22:26 | Emergency (ER) | payer OTHER ==
[2024-01-15 22:46] VITALS: PULSE 83; RESP 18; TEMP 97.5
--- NOTE | 2024-01-15 23:33 | ED ---
Chest Pain HPI - General Chief Complaint: Chest Pain Stated Complaint: Chest Pain, Rapid Heart Rate Time Seen by Provider: 01/15/24 23:33 Source: patient Mode of arrival: ambulatory Limitations: no limitations - History of Present Illness Initial Comments: 48-year-old male presenting with chief complaint of chest pain. Patient has been seen here on multiple occasions for chest pain. This is located primarily in the left-sided ribs. No radiation. Does not worsen with exertion. Pain does not seem to have any alleviating or aggravating factors. No shortness of breath. No lower extremity swelling. No recent surgery or travel. No history of blood clot. No cough, congestion, sore throat, fever, chills, abdominal pain, nausea, vomiting, dizziness, headache, vision or hearing changes, numbness, tingling, weakness. - Related Data Previous Rx's Medication Instructions Recorded Insulin Detemir (Levemir) [Levemir] 30 unit SQ HS #7 each 09/02/23 Aspirin 81 mg PO DAILY #90 tab 11/12/23 Atorvastatin [Lipitor] 40 mg PO DAILY #90 tab 11/12/23 Famotidine [Pepcid] 20 mg PO BID #28 tablet 11/26/23 Mag Hydrox/Al Hydrox/Simeth 10 - 20 ml PO QID PRN #473 ml 12/07/23 [Maalox] Clopidogrel [Plavix] 75 mg PO DAILY #90 tab 12/14/23 Losartan [Cozaar] 50 mg PO DAILY #90 tab 12/14/23 carvediloL [Coreg*] 12.5 mg PO BID-W/MEALS tab 12/14/23 Acetaminophen Tab [Tylenol] 500 mg PO Q6H PRN #60 tablet 12/22/23 Allergies Allergy/AdvReac Type Severity Reaction Status Date / Time blue dye AdvReac Rapid Verified 01/15/24 22:30 Heart Rate Review of Systems ROS Statement: Those systems with pertinent positive or pertinent negative responses have been documented in the HPI. ROS Other: All systems not noted in ROS Statement are negative. Past Medical History Past Medical History: Coronary Artery Disease (CAD), Chest Pain / Angina, Diabetes Mellitus, Hypertension Additional Past Medical History / Comment(s): pt type 1 diabetes Last Myocardial Infarction Date:: 2021 History of Any Multi-Drug Resistant Organisms: None Reported Past Surgical History: Orthopedic Surgery Additional Past Surgical History / Comment(s): Knee surgey 1993 Past Anesthesia/Blood Transfusion Reactions: No Reported Reaction Past Psychological History: Schizophrenia Smoking Status: Current every day smoker, Vaper Past Alcohol Use History: Occasional Past Drug Use History: Marijuana - Past Family History Father Family Medical History: Coronary Artery Disease (CAD) General Exam - General Exam Comments Initial Comments: Visual Physical Exam Vital signs reviewed General: Well-appearing, nontoxic, no acute distress. Head: Normocephalic, atraumatic Eyes: PERRLA, EOMI ENT: Airway patent Chest: Nonlabored breathing Skin: No visual rash, normal skin tone Neuro: Alert and oriented 3 Musculoskeletal: No gross abnormalities Limitations: no limitations General appearance: alert, in no apparent distress Head exam: Present: atraumatic, normocephalic Eye exam: Present: normal appearance, EOMI Neck exam: Present: normal inspection. Absent: meningismus Respiratory exam: Present: normal lung sounds bilaterally, chest wall tenderness. Absent: respiratory distress, wheezes, rales, rhonchi, stridor Cardiovascular Exam: Present: regular rate, normal rhythm, normal heart sounds. Absent: systolic murmur, diastolic murmur, rubs, gallop, clicks Neurological exam: Present: alert, oriented X3 Psychiatric exam: Present: normal affect, normal mood Skin exam: Present: warm, dry Course Vital Signs 01/15/24 01/16/24 22:27 03:52 Temperature 97.5 F L Pulse Rate 83 Respiratory 18 18 Rate Blood Pressure 173/123 149/99 O2 Sat by Pulse 99 Oximetry Chest Pain MDM - MDM Was pt. sent in by a medical professional or institution (MERCEDES Mac, MD UROLOGIST, urgent care, hospital, or group home...) When possible be specific @ -[No] Did you speak to anyone other than the patient for history (EMS, parent, family, police, friend...)? What history was obtained from this source @ -[No] Did you review nursing and triage notes (agree or disagree)? Why? @ -[I reviewed and agree with nursing and triage notes] Were old charts reviewed (outside hosp., previous admission, EMS record, old EKG, old radiological studies, urgent care reports/EKG's, group home records)? Report findings @ -Previous visits are reviewed Differential Diagnosis (chest pain, altered mental status, abdominal pain women, abdominal pain men, vaginal bleeding, weakness, fever, dyspnea, syncope, headache, dizziness, GI bleed, back pain, seizure, CVA, palpatations, mental health, musculoskeletal)? @ -MDM Differential Chest Pain: Stable Angina, Unstable Angina, STEMI, NSTEMI Aortic Dissection, Pneumothorax, Musculoskeletal, Esophageal Spasm GERD, Cholecystitis, Pancreatitis, Zoster This is not meant to be an all-inclusive list. EKG interpreted by me (3pts min.). @ -EKG shows sinus rhythm ventricular rate 75. PA interval 139. QRS 97. QT 402. QTc 431. No ST deviation or T wave inversion. X-rays interpreted by me (1pt min.). @ -Chest x-ray shows no acute process CT interpreted by me (1pt min.). @ -[None done] U/S interpreted by me (1pt. min.). @ -[None done] What testing was considered but not performed or refused? (CT, X-rays, U/S, labs)? Why? @ -[None] What meds were considered but not given or refused? Why? @ -[None] Did you discuss the management of the patient with other professionals (professionals i.e. , PA, MD UROLOGIST, lab, RT, psych nurse, elementary school social worker, java designer, teacher, health officer, director of casework)? Give summary @ -[No] Was smoking cessation discussed for >3mins.? @ -[No] Was critical care preformed (if so, how long)? @ -[No] Were there social determinants of health that impacted care today? How? (Homelessness, low income, unemployed, alcoholism, drug addiction, transportation, low edu. Level, literacy, decrease access to med. care, prison, rehab)? @ -[No] Was there de-escalation of care discussed even if they declined (Discuss DNR or withdrawal of care, Hospice)? DNR status @ -[No] What co-morbidities impacted this encounter? (DM, HTN, Smoking, COPD, CAD, Cancer, CVA, ARF, Chemo, Hep., AIDS, mental health diagnosis, sleep apnea, morbid obesity)? @ -CAD, diabetes Was patient admitted / discharged? Hospital course, mention meds given and route, prescriptions, significant lab abnormalities, going to OR and other pertinent info. @ -48-year-old male presenting with chief complaint of chest pain. Pain is located on the left side of the chest. Atypical features. I performed the initial quick note portion of this visit and then resumed the care of the patient when he was brought back to a room later on. Lab work requires no action. Chest x-ray is negative. EKG shows no acute changes. Given that the patient has been evaluated here on multiple occasions for chest pain and this p ain seems atypical in nature he will be discharged home and is instructed to follow-up with his PCP. Follow-up with PCP. Report back to ER with any new or worsening symptoms. Discussed return parameters and answered all questions. Patient conveyed verbal understanding and agreed to the plan. I discussed this case in detail with my attending Dr. Patrick Undiagnosed new problem with uncertain prognosis? @ -[No] Drug Therapy requiring intensive monitoring for toxicity (Heparin, Nitro, Insulin, Cardizem)? @ -[No] Were any procedures done? @ -[No] Diagnosis/symptom? @ -Atypical chest pain Acute, or Chronic, or Acute on Chronic? @ -Acute Uncomplicated (without systemic symptoms) or Complicated (systemic symptoms)? @ -Uncomplicated Side effects of treatment? @ -[No] Exacerbation, Progression, or Severe Exacerbation? @ -[No] Poses a threat to life or bodily function? How? (Chest pain, [place], [place], pneumonia, PE, COPD, DKA, ARF, appy, cholecystitis, CVA, Diverticulitis, Homicidal, Suicid al, threat to staff... and all critical care pts) @ -Low likelihood Disposition Clinical Impression: Atypical chest pain Disposition: HOME SELF-CARE Condition: Good Instructions (If sedation given, give patient instructions): Chest Pain (ED) Additional Instructions: Follow-up with PCP. Report back to ER with any new or worsening symptoms. Is patient prescribed a controlled substance at d/c from ED?: No Referrals: None,Stated [Primary Care Provider] - 1-2 days Sherry Dela Cruz MD [STAFF PHYSICIAN] - 1-2 days Time of Disposition: 03:24
[2024-01-16 01:14] LABS: Basophils # (A) 0.1 k/uL (0-0.2); Basophils % (A) 1 %; Eosinophils # (A) 0.2 k/uL (0-0.7); Eosinophils % (A) 3 %; HCT 45.8 % (39.0-53.0); HGB 15.1 gm/dL (13.0-17.5); Lymphocytes # (A) 2.8 k/uL (1.0-4.8); Lymphocytes % (A) 40 %; MCH 29.8 pg (25.0-35.0); MCV 90.3 fL (80.0-100.0); Mean Platelet Volume 8.8; Monocytes # (A) 0.4 k/uL (0-1.0); Monocytes % (A) 6 %; Neutrophils # (A) 3.4 k/uL (1.3-7.7); Neutrophils % (A) 49 %; Platelet Count 238 k/uL (150-450); RBC 5.08 m/uL (4.30-5.90); RDW 12.9 % (11.5-15.5); WBC 6.9 k/uL (3.8-10.6)
[2024-01-16 01:24] LABS: ALT 20 U/L (4-49); AST 21 U/L (17-59); African American GFR (CKD) >90 (>60 ml/min/1.73 sqM); Albumin 3.6 g/dL (3.5-5.0); Alkaline Phosphatase 119 U/L (38-126); Anion Gap 5 mmol/L; Blood Urea Nitrogen 20 mg/dL (9-20); Calcium 9.2 mg/dL (8.4-10.2); Carbon Dioxide 24 mmol/L (22-30); Chloride 108 mmol/L (98-107); Glucose 207 mg/dL (74-99); Lipase 77 U/L (23-300); Magnesium 1.8 mg/dL (1.6-2.3); Non-African American GFR(CKD) >90 (>60 ml/min/1.73 sqM); Sodium 137 mmol/L (137-145); Total Bilirubin 0.8 mg/dL (0.2-1.3); Total Protein 6.7 g/dL (6.3-8.2)
--- NOTE | 2024-01-16 01:35 | XR ---
EXAM: XR Chest, 2 Views CLINICAL HISTORY: ITS.REASON XR Reason: Chest Pain TECHNIQUE: Frontal and lateral views of the chest. COMPARISON: No relevant prior studies available. FINDINGS: Lungs: Unremarkable. No consolidation. Pleural space: Unremarkable. No pneumothorax. Heart: Unremarkable. No cardiomegaly. Mediastinum: Unremarkable. Normal mediastinal contour. Bones/joints: Unremarkable. No acute fracture. IMPRESSION: Normal chest x-rays.
[2024-01-16 01:43] LABS: Partial Thromboplastin Time 26.2 sec (22.0-30.0); Prothrombin Time 10.8 sec (10.0-12.5)
[2024-01-16 04:11] VITALS: BP 149/99
== END 2024-01-16 04:02 | disposition home or self-care (01) ==
LOC: EC 22:26
DX: R07.89 Other chest pain (principal); E10.9 Type 1 diabetes mellitus without complications; I25.10 Atherosclerotic heart disease of native coronary artery without angina pectoris; F17.290 Nicotine dependence, other tobacco product, uncomplicated; Z91.041 Radiographic dye allergy status
CPT/HCPCS: 36415; 71046; 80053; 83690; 83735; 84484; 85025; 85610; 85730; 93005; 99285

== ENCOUNTER 2024-01-19 05:02 | Emergency (ER) | payer OTHER ==
[2024-01-19 05:40] VITALS: BP 181/106; PULSE 84; RESP 18; TEMP 98.3
--- NOTE | 2024-01-19 06:01 | ED ---
General Adult HPI - General Chief complaint: Extremity Injury, Lower Stated complaint: feet pain Time Seen by Provider: 01/19/24 05:10 Source: patient Mode of arrival: wheelchair Limitations: no limitations - History of Present Illness Initial comments: 48-year-old male with past medical history of diabetes mellitus, neuropathy who presents to the emergency department reporting bilateral feet pain. Patient is well-known to emergency department. He is homeless and does have frequent visits to the emergency department with various complaints. Tonight the patient states that he is having pain in his feet. States that this has been a chronic issue for him. He does not take any medications for it. He states he has been evaluated by multiple people for the same complaint. He presents requesting pain medications. Patient denies adequate control of his glucose. He denies any injuries to his extremities. Denies the pain is a burning sensation. No other alleviating, precipitating factors - Related Data Home Medications Medication Instructions Recorded Confirmed Acetaminophen Tab [Tylenol] 500 - 1,000 mg PO Q6H PRN MDD 8 01/21/24 01/21/24 tabs Insulin Aspart [Insulin Aspart 12 unit SQ AC-TID 01/21/24 01/21/24 Flexpen] Previous Rx's Medication Instructions Recorded Insulin Detemir (Levemir) [Levemir] 30 unit SQ HS #7 each 09/02/23 Aspirin 81 mg PO DAILY #90 tab 11/12/23 Atorvastatin [Lipitor] 40 mg PO DAILY #90 tab 11/12/23 Famotidine [Pepcid] 20 mg PO BID #28 tablet 11/26/23 Mag Hydrox/Al Hydrox/Simeth 10 - 20 ml PO QID PRN #473 ml 12/07/23 [Maalox] Clopidogrel [Plavix] 75 mg PO DAILY #90 tab 12/14/23 Losartan [Cozaar] 50 mg PO DAILY #90 tab 12/14/23 carvediloL [Coreg*] 12.5 mg PO BID-W/MEALS tab 12/14/23 Gabapentin 300 mg PO HS #20 cap 01/19/24 Isosorbide Mononitrate ER [Imdur] 30 mg PO DAILY 30 Days #30 tab 01/22/24 Allergies Allergy/AdvReac Type Severity Reaction Status Date / Time blue dye AdvReac Rapid Verified 01/21/24 12:44 Heart Rate Review of Systems ROS Statement: Those systems with pertinent positive or pertinent negative responses have been documented in the HPI. ROS Other: All systems not noted in ROS Statement are negative. Past Medical History Past Medical History: Coronary Artery Disease (CAD), Chest Pain / Angina, Diabetes Mellitus, Hypertension Additional Past Medical History / Comment(s): pt type 1 diabetes Last Myocardial Infarction Date:: 2021 History of Any Multi-Drug Resistant Organisms: None Reported Past Surgical History: Orthopedic Surgery Additional Past Surgical History / Comment(s): Knee surgey 1993 Past Anesthesia/Blood Transfusion Reactions: No Reported Reaction Past Psychological History: Schizophrenia Smoking Status: Current every day smoker, Vaper Past Alcohol Use History: Occasional Past Drug Use History: Marijuana - Past Family History Father Family Medical History: Coronary Artery Disease (CAD) General Exam Limitations: no limitations General appearance: alert, in no apparent distress Head exam: Present: atraumatic, normocephalic, normal inspection Eye exam: Present: normal appearance, PERRL, EOMI. Absent: scleral icterus, conjunctival injection, periorbital swelling ENT exam: Present: normal exam, mucous membranes moist Neck exam: Present: normal inspection. Absent: tenderness, meningismus, lymphadenopathy Respiratory exam: Present: normal lung sounds bilaterally. Absent: respiratory distress, wheezes, rales, rhonchi, stridor Cardiovascular Exam: Present: regular rate, normal rhythm, normal heart sounds. Absent: systolic murmur, diastolic murmur, rubs, gallop, clicks GI/Abdominal exam: Present: soft, normal bowel sounds. Absent: distended, tenderness, guarding, rebound, rigid Extremities exam: Present: normal inspection, full ROM, normal capillary refill, other (2+ DP and PT pulses). Absent: tenderness, pedal edema, joint swelling, calf tenderness Back exam: Present: normal inspection Neurological exam: Present: alert, oriented X3, CN II-XII intact Psychiatric exam: Present: normal affect, normal mood Skin exam: Present: warm, dry, intact, normal color. Absent: rash Course Vital Signs 01/19/24 05:05 Temperature 98.3 F Pulse Rate 84 Respiratory 18 Rate Blood Pressure 181/106 O2 Sat by Pulse 100 Oximetry Medical Decision Making - Medical Decision Making Was pt. sent in by a medical professional or institution (, PA, GRADUATE INTERN, urgent care, hospital, or assisted...) When possible be specific @ -No Did you speak to anyone other than the patient for history (EMS, parent, family, police, friend...)? What history was obtained from this source @ -No Did you review nursing and triage notes (agree or disagree)? Why? @ -I reviewed and agree with nursing and triage notes Were old charts reviewed (outside hosp., previous admission, EMS record, old EKG, old radiological studies, urgent care reports/EKG's, assisted records)? Report findings @ -I reviewed the patient's ED visit from yesterday as patient has been in the emergency department daily Differential Diagnosis (chest pain, altered mental status, abdominal pain women, abdominal pain men, vaginal bleeding, weakness, fever, dyspnea, syncope, headache, dizziness, GI bleed, back pain, seizure, CVA, palpatations, mental health, musculoskeletal)? @ -Differential Musculoskeletal Muscular strain, contusion, ligament sprain, fracture, arthritis, septic arthritis, bursitis, cellulitis, muscle spasm, nerve compression, DVT, arterial occlusion, herpes zoster, electrolyte abnormality, tumor.... This is not meant to be in all inclusive list EKG interpreted by me (3pts min.). @ -Not done X-rays interpreted by me (1pt min.). @ -This was considered however patient has been evaluated multiple times for the same complaint CT interpreted by me (1pt min.). @ -None done U/S interpreted by me (1pt. min.). @ -None done What testing was considered but not performed or refused? (CT, X-rays, U/S, labs)? Why? @ -None What meds were considered but not given or refused? Why? @ -None Did you discuss the management of the patient with other professionals (professionals i.e. , PA, GRADUATE INTERN, lab, RT, psych nurse, drug abuse social worker, medical specialist, teacher, electoral officer, case filler)? Give summary @ -No Was smoking cessation discussed for >3mins.? @ -No Was critical care preformed (if so, how long)? @ -No Were there social determinants of health that impacted care today? How? (Homelessness, low income, unemployed, alcoholism, drug addiction, transportation, low edu. Level, literacy, decrease access to med. care, fdc, rehab)? @ -Homelessness Was there de-escalation of care discussed even if they declined (Discuss DNR or withdrawal of care, Hospice)? DNR status @ -No What co-morbidities impacted this encounter? (DM, HTN, Smoking, COPD, CAD, Cancer, CVA, ARF, Chemo, Hep., AIDS, mental health diagnosis, sleep apnea, morbid obesity)? @ -Diabetes mellitus Was patient admitted / discharged? Hospital course, mention meds given and route, prescriptions, significant lab abnormalities, going to OR and other pertinent info. @ -Upon arrival patient was placed into room 20. Thorough history and physical exam was performed. Upon questioning the patient as to why he does not follow with a primary care doctor and control his diabetes he becomes aggressive. Patient is threatening me and is requesting pain medications. I informed him that I do not provide narcotics for chronic pain and do feel that the patient would benefit from other modalities such as gabapentin. I informed him that this is difficult for me to prescribe as it is a medication that requires titration. It is also a controlled substance and I am only allowed to prescribe the patient 3 days worth of this medication. Patient states that he will find a primary care doctor. I did offer him a dose of Toradol and Tylenol threes. Patient becomes aggressive with the nurse and threatens to beat him up. He refuses these medications. Patient does require police escort to be removed from the hospital. I did strongly encourage him to follow-up with his primary care doctor for his suspected neuropathy Undiagnosed new problem with uncertain prognosis? @ -No Drug Therapy requiring intensive monitoring for toxicity (Heparin, Nitro, Insulin, Cardizem)? @ -No Were any procedures done? @ -No Diagnosis/symptom? @ -Chronic bilateral feet pain Acute, or Chronic, or Acute on Chronic? @ -Chronic Uncomplicated (without systemic symptoms) or Complicated (systemic symptoms)? @ -Complicated Side effects of treatment? @ -No Exacerbation, Progression, or Severe Exacerbation? @ -No Poses a threat to life or bodily function? How? (Chest pain, [place], [place], pneumonia, PE, COPD, DKA, ARF, appy, cholecystitis, CVA, Diverticulitis, Homicidal, Suicidal, threat to staff... and all critical care pts) @ -No Disposition Clinical Impression: Bilateral foot pain Disposition: HOME SELF-CARE Condition: Stable Instructions (If sedation given, give patient instructions): Diabetic Peripheral Neuropathy (ED) Additional Instructions: Please start taking the medications as directed. Follow-up with your primary care doctor so they can further manage your pain Prescriptions: Gabapentin 300 mg PO HS #20 cap Is patient prescribed a controlled substance at d/c from ED?: Yes When asked, does pt state using other controlled substances?: No If prescribed controlled substance>3 days was MAPS reviewed?: Prescribed <3 Days Referrals: None,Stated [Primary Care Provider] - 1-2 days [facility] [NON-STAFF] - 1-2 days Time of Disposition: 06:01
[2024-01-19] MEDS: ACET/COD 300 MG/30 MG STARTER PACK 6 TAB BTL PO STA (06:07)
[2024-01-19] MEDS: KETOROLAC 15 MG/ML 1 ML VIAL IM STA (06:07)
== END 2024-01-19 06:47 | disposition home or self-care (01) ==
LOC: EC 05:02
DX: M79.672 Pain in left foot (principal); M79.671 Pain in right foot; F17.290 Nicotine dependence, other tobacco product, uncomplicated; F12.90 Cannabis use, unspecified, uncomplicated; Z91.041 Radiographic dye allergy status
CPT/HCPCS: 99283

== ENCOUNTER 2024-01-21 11:53 | Observation (INO) | payer OTHER ==
--- NOTE | 2024-01-21 12:26 | ED ---
General Adult HPI - General Chief complaint: Chest Pain Stated complaint: Chest Discomfort Time Seen by Provider: 01/21/24 12:00 Source: patient, RN notes reviewed, old records reviewed Mode of arrival: ambulatory Limitations: no limitations - History of Present Illness Initial comments: This is a 48-year-old male who presents to the emergency department stating that he is a smoker he also has diabetes hypertension high cholesterol. Patient states both of his parents from heart disease. Patient comes in today complaining of chest pain which started about 830 this morning. Patient states there is no radiation of the pain or diaphoretic episode. Patient states he was short of breath and he was mildly nauseous. Patient states the chest pain still exist but it is not as bad as it was. Patient denies any recent fever chills or cough or patient has abdominal pain. Patient denies any back pain. Patient Nu[place] headache patient denies lightheadedness or dizziness. - Related Data Home Medications Medication Instructions Recorded Confirmed Acetaminophen Tab [Tylenol] 500 - 1,000 mg PO Q6H PRN MDD 8 01/21/24 01/21/24 tabs Ibuprofen [Motrin] 600 mg PO Q6H PRN 01/21/24 01/21/24 Insulin Aspart [Insulin Aspart 12 unit SQ AC-TID 01/21/24 01/21/24 Flexpen] Previous Rx's Medication Instructions Recorded Insulin Detemir (Levemir) [Levemir] 30 unit SQ HS #7 each 09/02/23 Aspirin 81 mg PO DAILY #90 tab 11/12/23 Atorvastatin [Lipitor] 40 mg PO DAILY #90 tab 11/12/23 Famotidine [Pepcid] 20 mg PO BID #28 tablet 11/26/23 Mag Hydrox/Al Hydrox/Simeth 10 - 20 ml PO QID PRN #473 ml 12/07/23 [Maalox] Clopidogrel [Plavix] 75 mg PO DAILY #90 tab 12/14/23 Losartan [Cozaar] 50 mg PO DAILY #90 tab 12/14/23 carvediloL [Coreg*] 12.5 mg PO BID-W/MEALS tab 12/14/23 Gabapentin 300 mg PO HS #20 cap 01/19/24 Allergies Allergy/AdvReac Type Severity Reaction Status Date / Time blue dye AdvReac Rapid Verified 01/21/24 12:44 Heart Rate Review of Systems ROS Statement: Those systems with pertinent positive or pertinent negative responses have been documented in the HPI. ROS Other: All systems not noted in ROS Statement are negative. Past Medical History Past Medical History: Coronary Artery Disease (CAD), Chest Pain / Angina, Diabetes Mellitus, Hypertension Additional Past Medical History / Comment(s): pt type 1 diabetes Last Myocardial Infarction Date:: 2021 History of Any Multi-Drug Resistant Organisms: None Reported Past Surgical History: Orthopedic Surgery Additional Past Surgical History / Comment(s): Knee surgey 1993 Past Anesthesia/Blood Transfusion Reactions: No Reported Reaction Past Psychological History: Schizophrenia Smoking Status: Current every day smoker, Vaper Past Alcohol Use History: Occasional Past Drug Use History: Marijuana - Past Family History Father Family Medical History: Coronary Artery Disease (CAD) General Exam - General Exam Comments Initial Comments: GENERAL: Patient is well-developed and well-nourished. Patient is nontoxic and well- hydrated and is in no acute distress. ENT: Neck is soft and supple. No significant lymphadenopathy is noted. Oropharynx is clear. Moist mucous membranes. Neck has full range of motion without eliciting any pain. EYES: The sclera were anicteric and conjunctiva were pink and moist. Extraocular movements were intact and pupils were equal round and reactive to light. Eyelids were unremarkable. PULMONARY: Unlabored respirations. Good breath sounds bilaterally. No audible rales rhonchi or wheezing was noted. CARDIOVASCULAR: There is a regular rate and rhythm without any murmurs gallops or rubs. ABDOMEN: Soft and nontender with normal bowel sounds. SKIN: Skin is clear with no lesions or rashes and otherwise unremarkable. NEUROLOGIC: Patient is alert and oriented x3. Cranial nerves II through XII are grossly intact. Motor and sensory are also intact. Normal speech, volume and content. Symmetrical smile. MUSCULOSKELETAL: Normal extremities with adequate strength and full range of motion. No lower extremity swelling or edema. No calf tenderness. LYMPHATICS: No significant lymphadenopathy is noted PSYCHIATRIC: Normal psychiatric evaluation. Limitations: no limitations Course Vital Signs 01/21/24 01/21/24 01/21/24 11:54 13:09 13:13 Temperature 98 F Pulse Rate 88 75 Pulse Rate [ 79 Electrical Lineman ] Respiratory 16 18 Rate Blood Pressure 179/97 181/90 O2 Sat by Pulse 97 99 Oximetry Medical Decision Making - Medical Decision Making EKG shows a sinus rhythm at 76 bpm parable 149 QRS 98 QT interval is 408 QTc is 438. Patient's EKG shows some T wave inversions in leads III and aVF. Patient has no ST segment elevation. I reviewed prior hospital stays and reviewed his cardiac cath report which indicated he had a 60 to 70% stenosis. Was pt. sent in by a medical professional or institution (, [facility], [facility], urgent care, hospital, or group home...) When possible be specific @ -No Did you speak to anyone other than the patient for history (EMS, parent, family, police, friend...)? What history was obtained from this source @ -No Did you review nursing and triage notes (agree or disagree)? Why? @ -I reviewed and agree with nursing and triage notes Were old charts reviewed (outside hosp., previous admission, EMS record, old EKG, old radiological studies, urgent care reports/EKG's, group home records)? Report findings @ -I looked at the patient's old charts as well as old x-rays and old EKGs. Differential Diagnosis (chest pain, altered mental status, abdominal pain women, abdominal pain men, vaginal bleeding, weakness, fever, dyspnea, syncope, headache, dizziness, GI bleed, back pain, seizure, CVA, palpatations, mental health, musculoskeletal)? @ -Differential Chest Pain: Stable Angina, Unstable Angina, STEMI, NSTEMI Aortic Dissection, Pneumothorax, Musculoskeletal, Esophageal Spasm GERD, Cholecystitis, Pancreatitis, Zoster, this is not meant to be an all-inclusive list. EKG interpreted by me (3pts min.). @ -As above X-rays interpreted by me (1pt min.). @ -Chest x-ray shows no acute abnormality CT interpreted by me (1pt min.). @ -None done U/S interpreted by me (1pt. min.). @ -None done What testing was considered but not performed or refused? (CT, X-rays, U/S, labs)? Why? @ -None What meds were considered but not given or refused? Why? @ -None Did you discuss the management of the patient with other professionals (professionals i.e. [facility], [facility], lab, RT, psych nurse, mental health social worker, medical translator, teacher, operations officer trust department, lining caser)? Give summary @ -I spoke with sound physicians they agreed to admit the patient Was smoking cessation discussed for >3mins.? @ -No Was critical care preformed (if so, how long)? @ -No Were there social determinants of health that impacted care today? How? (Homelessness, low income, unemployed, alcoholism, drug addiction, transportation, low edu. Level, literacy, decrease access to med. care, snf, rehab)? @ -No Was there de-escalation of care discussed even if they declined (Discuss DNR or withdrawal of care, Hospice)? DNR status @ -No What co-morbidities impacted this encounter? (DM, HTN, Smoking, COPD, CAD, Cancer, CVA, ARF, Chemo, Hep., AIDS, mental health diagnosis, sleep apnea, morbid obesity)? @ -Diabetes, hypertension, smoking, high cholesterol, family history Was patient admitted / discharged? Hospital course, mention meds given and route, prescriptions, significant lab abnormalities, going to OR and other pertinent info. @ -Patient stated he continue to have chest pain in the emergency department. Initial lab work was negative. Spoke with sound physicians they agreed admit the patient I admitted the patient I consulted cardiology Undiagnosed new problem with uncertain prognosis? @ -No Drug Therapy requiring intensive monitoring for toxicity (Heparin, Nitro, Insulin, Cardizem)? @ -No Were any procedures done? @ -No Diagnosis/symptom? @ -Chest pain Acute, or Chronic, or Acute on Chronic? @ -Acute Uncomplicated (without systemic symptoms) or Complicated (systemic symptoms)? @ -Complicated Side effects of treatment? @ -No Exacerbation, Progression, or Severe Exacerbation? @ -No Poses a threat to life or bodily function? How? (Chest pain, USA, DE, pneumonia, PE, COPD, DKA, ARF, appy, cholecystitis, CVA, Diverticulitis, Homicidal, Suici keerthi, threat to staff... and all critical care pts) @ -Yes this could lead to an DE and end organ dysfunction - Lab Data Result diagrams: 01/21/24 14:16 01/21/24 14:16 Lab Results 01/21/24 01/21/24 01/21/24 Range/Units 14:16 14:16 14:16 WBC 6.9 (3.8-10.6) k/uL RBC 4.67 (4.30-5.90) m/uL Hgb 13.8 (13.0-17.5) gm/dL Hct 42.3 (39.0-53.0) % MCV 90.6 (80.0-100.0) fL MCH 29.5 (25.0-35.0) pg MCHC 32.5 (31.0-37.0) g/dL RDW 13.2 (11.5-15.5) % Plt Count 222 (150-450) k/uL MPV 9.4 Neutrophils % 59 % Lymphocytes % 29 % Monocytes % 7 % Eosinophils % 3 % Basophils % 0 % Neutrophils # 4.1 (1.3-7.7) k/uL Lymphocytes # 2.0 (1.0-4.8) k/uL Monocytes # 0.5 (0-1.0) k/uL Eosinophils # 0.2 (0-0.7) k/uL Basophils # 0.0 (0-0.2) k/uL PT 10.0 (10.0-12.5) sec INR 0.9 (<1.2) APTT 27.2 (22.0-30.0) sec Sodium 138 (137-145) mmol/L Potassium 4.0 (3.5-5.1) mmol/L Chloride 107 (98-107) mmol/L Carbon Dioxide 26 (22-30) mmol/L Anion Gap 5 mmol/L BUN 13 (9-20) mg/dL Creatinine 0.89 (0.66-1.25) mg/dL Est GFR (CKD-EPI)AfAm >90 (>60 ml/min/1.73 sqM) Est GFR (CKD-EPI)NonAf >90 (>60 ml/min/1.73 sqM) Glucose 241 H (74-99) mg/dL Calcium 8.6 (8.4-10.2) mg/dL Magnesium 1.7 (1.6-2.3) mg/dL Total Bilirubin 0.5 (0.2-1.3) mg/dL AST 20 (17-59) U/L ALT 16 (4-49) U/L Alkaline Phosphatase 112 (38-126) U/L Troponin I (0.000-0.034) ng/mL Total Protein 6.1 L (6.3-8.2) g/dL Albumin 3.1 L (3.5-5.0) g/dL 01/21/24 Range/Units 14:16 WBC (3.8-10.6) k/uL RBC (4.30-5.90) m/uL Hgb (13.0-17.5) gm/dL Hct (39.0-53.0) % MCV (80.0-100.0) fL MCH (25.0-35.0) pg MCHC (31.0-37.0) g/dL RDW (11.5-15.5) % Plt Count (150-450) k/uL MPV Neutrophils % % Lymphocytes % % Monocytes % % Eosinophils % % Basophils % % Neutrophils # (1.3-7.7) k/uL Lymphocytes # (1.0-4.8) k/uL Monocytes # (0-1.0) k/uL Eosinophils # (0-0.7) k/uL Basophils # (0-0.2) k/uL PT (10.0-12.5) sec INR (<1.2) APTT (22.0-30.0) sec Sodium (137-145) mmol/L Potassium (3.5-5.1) mmol/L Chloride (98-107) mmol/L Carbon Dioxide (22-30) mmol/L Anion Gap mmol/L BUN (9-20) mg/dL Creatinine (0.66-1.25) mg/dL Est GFR (CKD-EPI)AfAm (>60 ml/min/1.73 sqM) Est GFR (CKD-EPI)NonAf (>60 ml/min/1.73 sqM) Glucose (74-99) mg/dL Calcium (8.4-10.2) mg/dL Magnesium (1.6-2.3) mg/dL Total Bilirubin (0.2-1.3) mg/dL AST (17-59) U/L ALT (4-49) U/L Alkaline Phosphatase (38-126) U/L Troponin I 0.016 (0.000-0.034) ng/mL Total Protein (6.3-8.2) g/dL Albumin (3.5-5.0) g/dL Disposition Clinical Impression: Chest pain Disposition: ADMITTED IP TO THIS [facility] Referrals: None,Stated [Primary Care Provider] - 1-2 days Time of Disposition: 16:26
[2024-01-21 14:26] LABS: Basophils % (A) 0 %; Eosinophils # (A) 0.2 k/uL (0-0.7); Eosinophils % (A) 3 %; HCT 42.3 % (39.0-53.0); HGB 13.8 gm/dL (13.0-17.5); Lymphocytes % (A) 29 %; MCH 29.5 pg (25.0-35.0); MCHC 32.5 g/dL (31.0-37.0); MCV 90.6 fL (80.0-100.0); Mean Platelet Volume 9.4; Monocytes # (A) 0.5 k/uL (0-1.0); Monocytes % (A) 7 %; Neutrophils # (A) 4.1 k/uL (1.3-7.7); Neutrophils % (A) 59 %; Platelet Count 222 k/uL (150-450); RBC 4.67 m/uL (4.30-5.90); RDW 13.2 % (11.5-15.5); WBC 6.9 k/uL (3.8-10.6)
[2024-01-21] MEDS: ASPIRIN 81 MG PO STA (14:27)
[2024-01-21] MEDS: NITROGLYCERIN OINT 1 INCH/GM PACKET TOPICAL STA (14:28)
--- NOTE | 2024-01-21 14:34 | XR ---
EXAMINATION TYPE: XR chest 2V DATE OF EXAM: 01/21/2024 2:24 PM CLINICAL INDICATION:Male, 48 years old with history of Chest Pain; COMPARISON: Chest radiographs from 01/07/2024 TECHNIQUE: XR chest 2V Frontal and lateral views of the chest. FINDINGS: Lungs/Pleura: There is no evidence of pleural effusion, focal consolidation, or pneumothorax. Pulmonary vascularity: Unremarkable. Heart/mediastinum: Cardiomediastinal silhouette is unremarkable. Musculoskeletal: No acute osseous pathology. Other findings: None IMPRESSION: No acute cardiopulmonary disease/process.
[2024-01-21 14:49] LABS: INR 0.9 (<1.2); Partial Thromboplastin Time 27.2 sec (22.0-30.0)
[2024-01-21 15:22] LABS: ALT 16 U/L (4-49); AST 20 U/L (17-59); African American GFR (CKD) >90 (>60 ml/min/1.73 sqM); Albumin 3.1 g/dL (3.5-5.0); Alkaline Phosphatase 112 U/L (38-126); Anion Gap 5 mmol/L; Blood Urea Nitrogen 13 mg/dL (9-20); Calcium 8.6 mg/dL (8.4-10.2); Carbon Dioxide 26 mmol/L (22-30); Chloride 107 mmol/L (98-107); Glucose 241 mg/dL (74-99); Magnesium 1.7 mg/dL (1.6-2.3); Non-African American GFR(CKD) >90 (>60 ml/min/1.73 sqM); Sodium 138 mmol/L (137-145); Total Bilirubin 0.5 mg/dL (0.2-1.3); Total Protein 6.1 g/dL (6.3-8.2)
[2024-01-21] MEDS ORDERED: NITROGLYCERIN SL TABS 0.4 MG TAB SUBLINGUAL PRN (16:27)
[2024-01-21] MEDS ORDERED: MAG HYDROX/AL HYDROX/SIMETH 30 ML CUP PO PRN (16:45)
--- NOTE | 2024-01-21 16:45 | P.HPIM ---
History of Present Illness H&P Date: 01/21/24 History of Presenting Illness: Patient is a very pleasant 48-year-old male with a past medical history the past medical history of CAD with previous AL and does not follow up outpatient with senior java architect or PCP, hypertension, hyperlipidemia, insulin-dependent diabetes mellitus, asthma/COPD with continued nicotine dependence, and schizophrenia. He presented to the emergency department with a chief complaint of chest pain and right groin pain. Patient reports pain to midsternal chest beginning shortly after awakening this morning. Patient describes the pain as being a tightness/heaviness to midsternal and left anterior chest and was accompanied by mild shortness of breath and nausea. Patient denied diaphoresis, headache, lightheadedness, dizziness, palpitations, cough or congestion, vomiting, or experiencing any numbness/tingling/weakness/swelling in his extremities. He denies any radiation of the pain and reports nothing makes the pain worse but does report relief of pain since receiving nitro patch in the emergency department. Patient also reports pain in right groin and has known inguinal hernia. Patient denies pain or swelling in his testicles. Patient underwent evaluation in the emergency department. Vital signs upon arrival show blood pressure 179/97, heart rate 88, respiratory rate 16, temp 98.0 F, and SpO2 of 97% on room air. EKG completed showing normal sinus rhythm at 76 bpm with T wave inversion in inferior leads III and aVF, which was not present when compared to previous EKG completed 01/16/2024 upon personal review and interpretation. Chest x-ray negative for acute cardiopulmonary process. Labs completed and reviewed. CBC unremarkable. Coagulation profile normal findings. BMP showing hyperglycemia with glucose of 241 otherwise normal findings. Magnesium slightly low at 1.7. Liver profile unremarkable with the exception of low albumin of 3.1. Troponin was 0.016. Patient admitted under our services with consultation to cardiology. Heart score is 6. Review of systems: Pertinent positives and negatives as discussed in HPI, a complete review of systems was performed and all other systems are negative. Physical exam: Vital signs reviewed and stable. General: Nontoxic, no distress and appears stated age. Derm: Skin warm and dry, normal coloration for ethnicity. Head: Atraumatic, normocephalic and symmetric. Eyes: EOMs intact, no lid lag, and anicteric sclera Mouth: no lip lesions, mucus membranes moist Cardiovascular: regular rate and rhythm with normal S1S2, no murmur, positive posterior tibial pulses bilaterally, and cap refill < 2 seconds. Lungs: Respirations even, regular, and unlabored on room air. Lungs CTA bilaterally, no rhonchi, no rales, no wheezing, and no accessory muscle usage. Abdominal: soft, nontender to palpation, no guarding, no appreciable organomegaly. Patient reports pain to right groin. Ext: No gross muscle atrophy, no edema, no contractures. Movement and sen sation intact. Neuro: Speech clear, face symmetrical and CN II-XII grossly intact with no noted focal neuro deficits Psych: Alert and oriented to person, place, time, and situation. Appropriate and pleasant affect. Assessment and Plan of Care: Chest pain, rule out acute coronary event History of known coronary artery disease Hypertension, poorly controlled Insulin-dependent diabetes mellitus with hyperglycemia Hyperlipidemia Nicotine dependence -Cardiology consulted for evaluation of reports of chest pain improved after administration of nitroglycerin in pt with known risk factors and heart score of 6, appreciate recommendations -Telemetry monitoring -Trend troponins -Cardiac diet, NPO at midnight -Continue cardiac medication regimen with aspirin 81 mg daily, atorvastatin 40 mg daily, carvedilol 12.5 mg twice daily, Plavix 75 mg daily, and losartan 50 mg daily -Lipid profile and hemoglobin A1c with a.m. labs. -Echocardiogram completed 08/31/2023 and reviewed showing a preserved EF of 55% with moderate concentric LVH and mild mitral and tricuspid regurgitation. Will defer to cardiology if they would like to order a repeat. -Patient to continue with Levemir 30 units nightly along with fixed dose NovoLog 12 units 3 times daily with meals and placed on glycemic protocol with NovoLog sliding scale. -Order placed for nicotine patch 21 mg daily and recommend smoking cessation. -Order placed for urine drug screen Right groin pain Inguinal hernia -Order placed for ultrasound right groin to further evaluate inguinal hernia and rule out incarceration. Pending ultrasound results, may consider consult to general surgery. -Order placed for urinalysis Data and imaging reviewed: -As stated above in HPI. The patient is admitted with an anticipated less than 2 midnight stay for evaluation of chest pain and right groin pain CODE STATUS: Full code DVT prophylaxis: Lovenox Anticipated discharge date: Clinical course to determine, likely 24 to [address]: Home Patient was seen independently by Nurse Practitioner. This document was prepared using [employer] dictation software. Please allow for errors in radio electronics officer while rare they do occur. Norberto Doe NP rendered care for this patient independently, reviewed the findings and plan as documented in the note above. I did not physically speak with or examine the patient on this date Past Medical History Past Medical History: Coronary Artery Disease (CAD), Chest Pain / Angina, Diabetes Mellitus, Hypertension Additional Past Medical History / Comment(s): pt type 1 diabetes Last Myocardial Infarction Date:: 2021 History of Any Multi-Drug Resistant Organisms: None Reported Past Surgical History: Orthopedic Surgery Additional Past Surgical History / Comment(s): Knee surgey 1993 Past Anesthesia/Blood Transfusion Reactions: No Reported Reaction Past Psychological History: Schizophrenia Smoking Status: Current every day smoker, Vaper Past Alcohol Use History: Occasional Past Drug Use History: Marijuana - Past Family History Father Family Medical History: Coronary Artery Disease (CAD) Medications and Allergies Home Medications Medication Instructions Recorded Confirmed Type Insulin Detemir (Levemir) [Levemir] 30 unit SQ HS #7 each 09/02/23 01/21/24 Rx Aspirin 81 mg PO DAILY #90 tab 11/12/23 01/21/24 Rx Atorvastatin [Lipitor] 40 mg PO DAILY #90 tab 11/12/23 01/21/24 Rx Famotidine [Pepcid] 20 mg PO BID #28 tablet 11/26/23 01/21/24 Rx Mag Hydrox/Al Hydrox/Simeth 10 - 20 ml PO QID PRN #473 ml 12/07/23 01/21/24 Rx [Maalox] Clopidogrel [Plavix] 75 mg PO DAILY #90 tab 12/14/23 01/21/24 Rx Losartan [Cozaar] 50 mg PO DAILY #90 tab 12/14/23 01/21/24 Rx carvediloL [Coreg*] 12.5 mg PO BID-W/MEALS tab 12/14/23 01/21/24 Rx Gabapentin 300 mg PO HS #20 cap 01/19/24 01/21/24 Rx Acetaminophen Tab [Tylenol] 500 - 1,000 mg PO Q6H PRN MDD 8 01/21/24 01/21/24 History tabs Ibuprofen [Motrin] 600 mg PO Q6H PRN 01/21/24 01/21/24 History Insulin Aspart [Insulin Aspart 12 unit SQ AC-TID 01/21/24 01/21/24 History Flexpen] Allergies Allergy/AdvReac Type Severity Reaction Status Date / Time blue dye AdvReac Rapid Verified 01/21/24 12:44 Heart Rate Physical Exam Osteopathic Statement: *. No significant issues noted on an osteopathic structural exam other than those noted in the History and Physical/Consult. Vitals: Vital Signs Temp Pulse Pulse Resp BP Pulse Ox 01/21/24 13:13 75 18 181/90 99 01/21/24 13:09 79 01/21/24 11:54 98 F 88 16 179/97 97 Intake and Output 01/21/24 01/21/24 01/21/24 06:59 14:59 22:59 Other: Weight 99.79 kg Results CBC & Chem 7: 01/21/24 14:16 01/21/24 14:16 Labs: Abnormal Lab Results - Last 24 Hours (Table) 01/21/24 Range/Units 14:16 Glucose 241 H (74-99) mg/dL Total Protein 6.1 L (6.3-8.2) g/dL Albumin 3.1 L (3.5-5.0) g/dL
[2024-01-21] MEDS ORDERED: DEXTROSE 50% SYRINGE 50 ML IVP PRN ×2 (17:26)
[2024-01-21] MEDS: MAGNESIUM OXIDE 400 MG TAB PO STA (17:53)
[2024-01-21] MEDS: carvediloL 12.5 MG TAB PO SCH (17:53)
[2024-01-21] MEDS: LOSARTAN 50 MG TAB PO SCH (17:53)
[2024-01-21 17:58] LABS: Glucose,Whole Blood 213 mg/dL (70-110)
[2024-01-21] MEDS ORDERED: NITROGLYCERIN OINT 1 INCH/GM PACKET TOPICAL SCH (18:00)
[2024-01-21] MEDS: INSULIN ASPART (NovoLOG) 100 UNIT/ML VIAL SQ SCH ×2 (18:11→18:15)
--- NOTE | 2024-01-21 19:47 | US ---
EXAMINATION TYPE: US groin RT DATE OF EXAM: 01/21/2024 COMPARISON: CT: 12/12/23 CLINICAL INDICATION: Male, 48 years old with history of pt reports right groin pain; Right groin pain x 2 months TECHNIQUE: Right groin scanned in area of pain FINDINGS: Multiple lymph nodes found, largest = 2.5 x 1.2 x 0.2cm. Echogenic area seen that appears larger with valsalva measuring 3.0cm IMPRESSION: Multiple right groin lymph nodes which have a normal sonographic appearance. Consider madelaine rt-term follow-up in 6-8 weeks.
[2024-01-21] MEDS: GABAPENTIN 300 MG CAP PO SCH (22:24)
[2024-01-21] MEDS: FAMOTIDINE 20 MG TAB PO SCH (22:26)
[2024-01-21] MEDS: INSULIN DETEMIR (LEVEMIR) 100 UNIT/ML SYR SQ SCH (22:26)
[2024-01-22 03:11] VITALS: RESP 16
[2024-01-22 06:16] LABS: Glucose,Whole Blood 310 mg/dL (70-110)
[2024-01-22 08:16] VITALS: BP 150/81; PULSE 83; TEMP 98.1
[2024-01-22] MEDS ORDERED: ASPIRIN 325 MG TAB PO SCH (09:00)
[2024-01-22] MEDS: ENOXAPARIN 40 MG/0.4 ML SYRINGE SQ SCH (09:46)
[2024-01-22] MEDS: NICOTINE 21MG/24HR PATCH TRANSDERM SCH (09:46)
[2024-01-22] MEDS: ATORVASTATIN 40 MG TAB PO SCH (09:46)
[2024-01-22] MEDS: CLOPIDOGREL 75 MG TAB PO SCH (09:47)
[2024-01-22] MEDS: ASPIRIN 81 MG PO SCH (09:47)
--- NOTE | 2024-01-22 09:54 | P.PN ---
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 He presented to the emergency department with a chief complaint of chest pain and right groin pain. Patient reports pain to midsternal chest beginning shortly after awakening this morning. Patient describes the pain as being a tightness/heaviness to midsternal and left anterior chest and was accompanied by mild shortness of breath and nausea. Patient denied diaphoresis, headache, lightheadedness, dizziness, palpitations, cough or congestion, vomiting, or experiencing any numbness/tingling/weakness/swelling in his extremities. He denies any radiation of the pain and reports nothing makes the pain worse but does report relief of pain since receiving nitro patch in the emergency department. Patient also reports pain in right groin and has known inguinal hernia. Patient denies pain or swelling in his testicles. Patient underwent evaluation in the emergency department. Vital signs upon arrival show blood pressure 179/97, heart rate 88, respiratory rate 16, temp 98.0 F, and SpO2 of 97% on room air. EKG completed showing normal sinus rhythm at 76 bpm with T wave inversion in inferior leads III and aVF, which was not present when compared to previous EKG completed 01/16/2024 upon personal review and interpretation. Chest x-ray negative for acute cardiopulmonary process. Labs completed and reviewed. CBC unremarkable. Coagulation profile normal findings. BMP showing hyperglycemia with glucose of 241 otherwise normal findings. Magnesium slightly low at 1.7. Liver profile unremarkable with the exception of low albumin of 3.1. Troponin was 0.016. Patient admitted under our services wi th consultation to cardiology. Heart score is 6. Physical exam: Pt seen and fully evaluated at bedside. Yanelis BURCIAGA also at bedside as groin and testicular exam needed to be completed. Pt initially presented with right groin pain and now with right testicular pain. Right testicle is reported to be significantly tender upon assessment. No obvious swelling, redness, lesions, or rashes noted. Pt denies penile discharge or difficulties or pain with urination. Pt reports chest pain remains subsided and denies any other complaints at this time. Vital signs reviewed and stable. General: Nontoxic, no distress and appears stated age. Derm: Skin warm and dry, normal coloration for ethnicity. Head: Atraumatic, normocephalic and symmetric. Eyes: EOMs intact, no lid lag, and anicteric sclera Mouth: no lip lesions, mucus membranes moist Cardiovascular: regular rate and rhythm with normal S1S2, no murmur, positive posterior tibial pulses bilaterally, and cap refill < 2 seconds. Lungs: Respirations even, regular, and unlabored on room air. Lungs CTA bilaterally, no rhonchi, no rales, no wheezing, and no accessory muscle usage. Abdominal: soft, nontender to palpation, no guarding, no appreciable organomegaly. Patient reports pain to right groin. Ext: No gross muscle atrophy, no edema, no contractures. Movement and sensation intact. Neuro: Speech clear, face symmetrical and CN II-XII grossly intact with no noted focal neuro deficits Psych: Alert and oriented to person, place, time, and situation. Appropriate and pleasant affect. Assessment and Plan of Care: Chest pain, rule out acute coronary event History of known coronary artery disease Hypertension, poorly controlled Insulin-dependent diabetes mellitus with hyperglycemia Hyperlipidemia Nicotine dependence -Cardiology consulted for evaluation of reports of chest pain improved after administration of nitroglycerin in pt with known risk factors and heart score of 6, appreciate recommendations -Telemetry monitoring -Trend troponins -Cardiac diet, NPO at midnight -Continue cardiac medication regimen with aspirin 81 mg daily, atorvastatin 40 mg daily, carvedilol 12.5 mg twice daily, Plavix 75 mg daily, and losartan 50 mg daily -Lipid profile and hemoglobin A1c with a.m. labs. -Echocardiogram completed 08/31/2023 and reviewed showing a preserved EF of 55% with moderate concentric LVH and mild mitral and tricuspid regurgitation. Will defer to cardiology if they would like to order a repeat. -Patient to continue with Levemir 30 units nightly along with fixed dose NovoLog 12 units 3 times daily with meals and placed on glycemic protocol with NovoLog sliding scale. -Order placed for nicotine patch 21 mg daily and recommend smoking cessation. -Order placed for urine drug screen Right testicular pain Right groin pain Inguinal hernia -Ultrasound right groin revealing multiple lymph nodes -Order placed for right testicular ultrasound due to newly reported right testicular pain -Awaiting urinalysis results. Data and imaging reviewed: -Ultrasound right groin revealing multiple lymph nodes CODE STATUS: Full code DVT prophylaxis: Lovenox Anticipated discharge date: Clinical course to determine, likely 24 to [address]: Home Patient was seen independently by Nurse Practitioner. This document was prepared using [employer] dictation software. Please allow for errors in track inspector while rare they do occur. I reviewed the documentation as provided by the CESIA above, who is the original author of this note. I agree with the documented assessment and plan, with the following changes: none Objective - Vital Signs Vital signs: Vital Signs Temp 98.1 F 01/22/24 07:00 Pulse 83 01/22/24 07:00 Resp 16 01/22/24 07:00 BP 150/81 01/22/24 07:00 Pulse Ox 96 01/22/24 07:00 FiO2 Intake & Output 01/21/24 01/22/24 01/22/24 18:59 06:59 18:59 Weight 99.79 kg Other: # Voids 1 - Labs CBC & Chem 7: 01/21/24 14:16 01/21/24 14:16 Labs: Abnormal Lab Results - Last 24 Hours (Table) 01/21/24 01/21/24 01/22/24 Range/Units 14:16 17:57 06:14 Glucose 241 H (74-99) mg/dL POC Glucose (mg/dL) 213 H 310 H (70-110) mg/dL Total Protein 6.1 L (6.3-8.2) g/dL Albumin 3.1 L (3.5-5.0) g/dL
--- NOTE | 2024-01-22 10:36 | US ---
EXAMINATION TYPE: US scrotum with doppler. Grayscale and color Doppler Duplex imaging performed of t renny scrotum. DATE OF EXAM: 01/22/2024 COMPARISON: NONE CLINICAL INDICATION: Male, 48 years old with history of pt presented w r groin pain now r testicular pain; sudden onset of right testicle pain, no injury or swelling EXAM MEASUREMENTS: TESTICLES: Right Testicle: 3.9 x 2.5 x 2.4 cm Left Testicle: 3.5 x 2.6 x 2.1 cm EPIDIDYMIS HEAD: Right Epididymis: 1.1 cm Left Epididymis: 0.9 cm Doppler performed to assess for testicular vascularity; good bilateral color flow and waveforms are s een. There is no evidence of testicular torsion. Presence of hydroceles: mild bilaterally Presence of varicoceles: no IMPRESSION: 1. Minimal left hydronephrosis, otherwise normal scrotal ultrasound.
[2024-01-22 10:38] LABS: Chol/HDL Ratio 2.53 Ratio; LDL Cholesterol,Calculated 103.4 mg/dL (0.0-131.0); VLDL Calculation 13.88 mg/dL (5.00-40.00)
[2024-01-22] MEDS: ISOSORBIDE MONONITRATE ER 30 MG TAB.ER.24H PO SCH (11:35)
[2024-01-22 12:10] LABS: Glucose,Whole Blood 242 mg/dL (70-110)
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
[2024-01-22 12:51] LABS: Amphetamine Screen,Urine Not Detected (NotDetected); Barbiturate Screen,Urine Not Detected (NotDetected); Benzodiazepines Screen,Urine Not Detected (NotDetected); Cocaine Screen,Urine Not Detected (NotDetected); Methadone Screen, Urine Not Detected (NotDetected); Opiate Screen,Urine Not Detected (NotDetected); Oxycodone Screen, Urine Not Detected (NotDetected); Phencyclidine Screen,Urine Not Detected (NotDetected); Tricyclic Antidepressant,Urine Not Detected (NotDetected); Urn Cannabinoid Scrn Detected (NotDetected)
[2024-01-22 12:55] LABS: Appearance,Urine Clear (Clear); Bacteria,Urine Rare /hpf; Bilirubin,Urine Negative (Negative); Blood,Urine Small (Negative); Color,Urine Light Yellow; Glucose,Urine (UA) 4+ (Negative); Ketones,Urine Negative (Negative); Leukocyte Esterase,Urine Negative (Negative); Mucus,Urine Rare /hpf; Nitrite,Urine Negative (Negative); Protein,Urine 3+ (Negative); RBC,Urine 3 /hpf (0-5); Specific Gravity,Urine 1.027 (1.001-1.035); Urobilinogen,Urine <2.0 mg/dL (<2.0); WBC,Urine <1 /hpf (0-5)
--- NOTE | 2024-01-22 13:36 | P.DS ---
Providers Date of admission: 01/21/24 16:33 Expected date of discharge: 01/22/24 Attending physician: Mariya Jordan DO Consults: 01/21/24 16:27 Consult Physician Urgent Consulting Provider: [facility] Consult Reason/Comments: Chest pain Do you want consulting provider notified?: Yes Primary care physician: Stated None Hospital Course: Discharge Diagnosis: Chest pain, acute coronary event ruled out. History of known coronary artery disease Hypertension, poorly controlled Insulin-dependent diabetes mellitus with hyperglycemia Hyperlipidemia Nicotine dependence Right testicular pain Right groin pain, ultrasound showing multiple lymph nodes. Inguinal hernia Hospital Course: Patient is a very pleasant 48-year-old male with a past medical history the past medical history of CAD with previous PR and does not follow up outpatient with structural design engineer or PCP, hypertension, hyperlipidemia, insulin-dependent diabetes mellitus, asthma/COPD with continued nicotine dependence, and schizophrenia. He presented to the emergency department with a chief complaint of chest pain and right groin pain. Patient reports pain to midsternal chest beginning shortly after awakening this morning. Patient describes the pain as being a tightness/heaviness to midsternal and left anterior chest and was accompanied by mild shortness of breath and nausea. Patient denied diaphoresis, headache, lightheadedness, dizziness, palpitations, cough or congestion, vomiting, or experiencing any numbness/tingling/weakness/swelling in his extremities. He denies any radiation of the pain and reports nothing makes the pain worse but does report relief of pain since receiving nitro patch in the emergency department. Patient also reports pain in right groin and has known inguinal hernia. Patient denies pain or swelling in his testicles. Patient underwent evaluation in the emergency department. Vital signs upon arrival show blood pressure 179/97, heart rate 88, respiratory rate 16, temp 98.0 F, and SpO2 of 97% on room air. EKG completed showing normal sinus rhythm at 76 bpm with T wave inversion in inferior leads III and aVF, which was not present when compared to previous EKG completed 01/16/2024 upon personal review and interpretation. Chest x-ray negative for acute cardiopulmonary process. Labs completed and reviewed. CBC unremarkable. Coagulation profile normal findings. BMP showing hyperglycemia with glucose of 241 otherwise normal findings. Magnesium slightly low at 1.7. Liver profile unremarkable with the exception of low albumin of 3.1. Troponin was 0.016. Patient admitted under our services with consultation to cardiology. Heart score is 6. Patient had no further episodes of chest pain or discomfort. Troponins were trended throughout the night resulting at 0.016, less than 0.012, and 0.012. Patient underwent ultrasound of right groin which revealed multiple right groin lymph nodes with a reported normal sonographic appearance, may consider short-term follow-up in 6 to 8 weeks. Patient then reporting right scrotal pain and a scrotal ultrasound was completed revealing mild bilateral hydroceles. Patient with no noted swelling, rash, discharge, and denies any other complaints. Urinalysis negative for infection. Patient evaluated by cardiology, started on Imdur 30 mg daily and cleared from cardiac perspective for discharge. Patient instructed if he develops any swelling in testicle, severe pain, penile drainage, or develops any difficulties with or changes in urination including painful urination or blood in his urine he will need to seek medical assistance immediately or return to the emergency department for further evaluation. Medically, patient stable at this time. Patient encouraged to follow-up outpatient with PCP in 1 to 2 days, cardiology in 2 weeks, and recommend outpatient follow-up with urology. Physical exam: Vital signs reviewed and stable. General: Nontoxic, no distress and appears stated age. Derm: Skin warm and dry, normal coloration for ethnicity. Head: Atraumatic, normocephalic and symmetric. Eyes: EOMs intact, no lid lag, and anicteric sclera Mouth: no lip lesions, mucus membranes moist Cardiovascular: regular rate and rhythm with normal S1S2, no murmur, positive posterior tibial pulses bilaterally, and cap refill < 2 seconds. Lungs: Respirations even, regular, and unlabored on room air. Lungs CTA bilaterally, no rhonchi, no rales, no wheezing, and no accessory muscle usage. Abdominal: soft, nontender to palpation, no guarding, no appreciable organomegaly. Patient reports pain to right groin. Ext: No gross muscle atrophy, no edema, no contractures. Movement and sensation intact. Neuro: Speech clear, face symme Troponins trended resulting at 0.016, less than 0.012 and 0.012.trical and CN II-XII grossly intact with no noted focal neuro deficits Psych: Alert and oriented to person, place, time, and situation. Appropriate and pleasant affect. A total of 35 minutes of time were spent preparing this complex discharge summary. Pt was discharged on 01/22/2024 at 1:05 PM. Patient was seen independently by Nurse Practitioner. This document was prepared using [employer] dictation software. Please allow for e rrors in shredded filler hopper feeder while rare they do occur. I reviewed the documentation as provided by the CES[employer] above, who is the original author of this note. I agree with the documented assessment and plan, with the following changes: none Patient Condition at Discharge: Stable Plan - Discharge Summary New Discharge Prescriptions: New Isosorbide Mononitrate ER [Imdur] 30 mg PO DAILY 30 Days #30 tab Continue Aspirin 81 mg PO DAILY #90 tab Famotidine [Pepcid] 20 mg PO BID #28 tablet Losartan [Cozaar] 50 mg PO DAILY #90 tab carvediloL [Coreg*] 12.5 mg PO BID-W/MEALS tab Acetaminophen Tab [Tylenol] 500 - 1,000 mg PO Q6H PRN MDD 8 tabs PRN Reason: Pain Insulin Aspart [Insulin Aspart Flexpen] 12 unit SQ AC-TID Insulin Detemir (Levemir) [Levemir] 30 unit SQ HS #7 each Atorvastatin [Lipitor] 40 mg PO DAILY #90 tab Mag Hydrox/Al Hydrox/Simeth [Maalox] 10 - 20 ml PO QID PRN #473 ml PRN Reason: Heartburn Clopidogrel [Plavix] 75 mg PO DAILY #90 tab Gabapentin 300 mg PO HS #20 cap Discontinued Ibuprofen [Motrin] 600 mg PO Q6H PRN PRN Reason: Pain Or Fever > 100.5 Discharge Medication List Insulin Detemir (Levemir) [Levemir] 30 unit SQ HS #7 each 09/02/23 [Rx] Aspirin 81 mg PO DAILY #90 tab 11/12/23 [Rx] Atorvastatin [Lipitor] 40 mg PO DAILY #90 tab 11/12/23 [Rx] Famotidine [Pepcid] 20 mg PO BID #28 tablet 11/26/23 [Rx] Mag Hydrox/Al Hydrox/Simeth [Maalox] 10 - 20 ml PO QID PRN #473 ml 12/07/23 [Rx] Clopidogrel [Plavix] 75 mg PO DAILY #90 tab 12/14/23 [Rx] Losartan [Cozaar] 50 mg PO DAILY #90 tab 02/25/24 [Rx] carvediloL [Coreg*] 12.5 mg PO BID-W/MEALS tab 12/14/23 [Rx] Gabapentin 300 mg PO HS #20 cap 01/19/24 [Rx] Acetaminophen Tab [Tylenol] 500 - 1,000 mg PO Q6H PRN MDD 8 tabs 01/21/24 [History] Insulin Aspart [Insulin Aspart Flexpen] 12 unit SQ AC-TID 01/21/24 [History] Isosorbide Mononitrate ER [Imdur] 30 mg PO DAILY 30 Days #30 tab 01/22/24 [Rx] Follow up Appointment(s)/Referral(s): Gianni Grimes MD [STAFF PHYSICIAN] - 1 Week Tien Esparza III, MD [STAFF PHYSICIAN] - 1-2 Days Juice Bangura MD [STAFF PHYSICIAN] - 2 Weeks Patient Instructions/Handouts: Chest Pain (DC), Groin Pain (ED) Activity/Diet/Wound Care/Special Instructions: Activity: As tolerated. Take breaks as needed. Diet: Heart healthy and carb consistent diet. Avoid salts, or foods with hidden salts such as canned or boxed foods and frozen dinners. Extra salt makes your heart work harder and traps the fluid in your body for longer. Special Instructions: Take all of your medications as directed and remember to keep all of your doctor's appointments and follow-up as needed. It is recommended that you follow-up outpatient with urologist secondary to concerns of your chronic right groin pain x 2 months as well as right testicular pain. It is recommended you undergo a repeat ultrasound of your right groin in 6 to 8 weeks for follow-up on lymph nodes noted in testing completed during this hospitalization. If no improvement, your PCP may refer you to sheeter operator for further evaluation and/or possible biopsy of lymph nodes. If you develop any swelling in your testicle, severe pain, penile drainage, or develop any difficulties with or changes in urination including painful urination or blood in your urine you will need to seek medical care immediately and/or return to the emergency department for further evaluation. Thank you for allowing us to participate in your care, it was truly a pleasure having you for our patient!!! Discharge Disposition: HOME SELF-CARE
[2024-01-22 13:41] VITALS: BMI 32.5
== END 2024-01-22 14:18 | disposition home or self-care (01) ==
LOC: EC 11:53 → 6NMEDSUR 16:33
PROVIDERS: ADMIT Internal Medicine; ATTEND Internal Medicine
DX: R07.89 Other chest pain (principal); E10.65 Type 1 diabetes mellitus with hyperglycemia; I10 Essential (primary) hypertension; E78.00 Pure hypercholesterolemia, unspecified; I25.10 Atherosclerotic heart disease of native coronary artery without angina pectoris; F20.9 Schizophrenia, unspecified; J44.9 Chronic obstructive pulmonary disease, unspecified; N50.811 Right testicular pain; K40.90 Unilateral inguinal hernia, without obstruction or gangrene, not specified as recurrent; I25.2 Old myocardial infarction; F17.290 Nicotine dependence, other tobacco product, uncomplicated; Z91.199 Patient's noncompliance with other medical treatment and regimen due to unspecified reason; Z79.4 Long term (current) use of insulin; Z79.82 Long term (current) use of aspirin; Z79.899 Other long term (current) drug therapy; Z79.02 Long term (current) use of antithrombotics/antiplatelets; Z82.49 Family history of ischemic heart disease and other diseases of the circulatory system
CPT/HCPCS: 96372; 99285; 36415; 93005; 80061; 80053; 83735; 84484; 85025; 85610; 85730; 81001; 80306; 83036; 71046; 93975; 76870; 76882; G0378 ×2; S4990; J1650

== ENCOUNTER 2024-01-27 02:40 | Emergency (ER) | payer OTHER ==
[2024-01-27] MEDS: cloNIDine HCL 0.1 MG TAB PO STA (03:04)
[2024-01-27] MEDS: ORPHENADRINE 30 MG/ML 2 ML VIAL IM STA (03:04)
[2024-01-27] MEDS: KETOROLAC 15 MG/ML 1 ML VIAL IM STA (03:05)
[2024-01-27 03:17] VITALS: TEMP 98
--- NOTE | 2024-01-27 03:33 | ED ---
Lower Extremity Injury HPI - General Chief Complaint: Extremity Injury, Lower Stated Complaint: leg pain Time Seen by Provider: 01/27/24 02:48 Source: patient Mode of arrival: ambulatory Limitations: no limitations - History of Present Illness Initial Comments: 48-year-old male presenting with chief complaint of leg pain. Patient describes aching pain in the back of his thighs that started today. Seems to be worse with weightbearing and walking. Pain did not radiate down his legs or into his back. No injury or trauma. No numbness tingling or weakness. No swelling. Has not taken anything for his pain. Patient is also noted to be hypertensive. He has no chest pain or difficulty breathing. He reports that he has not taken his blood pressure medication today because "I was out all day", meaning out of the house all day - Related Data Home Medications Medication Instructions Recorded Confirmed Acetaminophen Tab [Tylenol] 500 - 1,000 mg PO Q6H PRN MDD 8 01/21/24 01/21/24 tabs Insulin Aspart [Insulin Aspart 12 unit SQ AC-TID 01/21/24 01/21/24 Flexpen] Previous Rx's Medication Instructions Recorded Insulin Detemir (Levemir) [Levemir] 30 unit SQ HS #7 each 09/02/23 Aspirin 81 mg PO DAILY #90 tab 11/12/23 Atorvastatin [Lipitor] 40 mg PO DAILY #90 tab 11/12/23 Famotidine [Pepcid] 20 mg PO BID #28 tablet 11/26/23 Mag Hydrox/Al Hydrox/Simeth 10 - 20 ml PO QID PRN #473 ml 12/07/23 [Maalox] Clopidogrel [Plavix] 75 mg PO DAILY #90 tab 12/14/23 Losartan [Cozaar] 50 mg PO DAILY #90 tab 12/14/23 carvediloL [Coreg*] 12.5 mg PO BID-W/MEALS tab 12/14/23 Gabapentin 300 mg PO HS #20 cap 01/19/24 Isosorbide Mononitrate ER [Imdur] 30 mg PO DAILY 30 Days #30 tab 01/22/24 Allergies Allergy/AdvReac Type Severity Reaction Status Date / Time blue dye AdvReac Rapid Verified 01/21/24 12:44 Heart Rate Review of Systems ROS Statement: Those systems with pertinent positive or pertinent negative responses have been documented in the HPI. ROS Other: All systems not noted in ROS Statement are negative. Past Medical History Past Medical History: Coronary Artery Disease (CAD), Chest Pain / Angina, Diabetes Mellitus, Hypertension Additional Past Medical History / Comment(s): pt type 1 diabetes Last Myocardial Infarction Date:: 2021 History of Any Multi-Drug Resistant Organisms: None Reported Past Surgical History: Orthopedic Surgery Additional Past Surgical History / Comment(s): Knee surgey 1993 Past Anesthesia/Blood Transfusion Reactions: No Reported Reaction Past Psychological History: Schizophrenia Smoking Status: Current every day smoker, Vaper Past Alcohol Use History: Occasional Past Drug Use History: Marijuana - Past Family History Father Family Medical History: Coronary Artery Disease (CAD) General Exam Limitations: no limitations General appearance: alert, in no apparent distress Head exam: Present: atraumatic, normocephalic Eye exam: Present: normal appearance, EOMI Neck exam: Present: normal inspection. Absent: meningismus Respiratory exam: Absent: respiratory distress Cardiovascular Exam: Present: regular rate Extremities exam: Present: normal inspection, full ROM. Absent: tenderness Neurological exam: Present: alert, oriented X3 Psychiatric exam: Present: normal affect, normal mood Skin exam: Present: normal color Course Vital Signs 01/27/24 01/27/24 02:45 03:43 Temperature 98 F Pulse Rate 85 72 Respiratory 20 16 Rate Blood Pressure 189/128 150/94 O2 Sat by Pulse 99 99 Oximetry Medical Decision Making - Medical Decision Making Was pt. sent in by a medical professional or institution (, PA, ENZYME CHEMIST, urgent care, hospital, or senior living...) When possible be specific @ -No Did you speak to anyone other than the patient for history (EMS, parent, family, police, friend...)? What history was obtained from this source @ -No Did you review nursing and triage notes (agree or disagree)? Why? @ -I reviewed and agree with nursing and triage notes Were old charts reviewed (outside hosp., previous admission, EMS record, old EKG, old radiological studies, urgent care reports/EKG's, senior living records)? Report findings @ -No old charts were reviewed Differential Diagnosis (chest pain, altered mental status, abdominal pain women, abdominal pain men, vaginal bleeding, weakness, fever, dyspnea, syncope, headache, dizziness, GI bleed, back pain, seizure, CVA, palpatations, mental health, musculoskeletal)? @ -Differential Musculoskeletal Muscular strain, contusion, ligament sprain, fracture, arthritis, septic arthritis, bursitis, cellulitis, muscle spasm, nerve compression, DVT, arterial occlusion, herpes zoster, electrolyte abnormality, tumor.... This is not meant to be in all inclusive list EKG interpreted by me (3pts min.). @ -As above X-rays interpreted by me (1pt min.). @ -None done CT interpreted by me (1pt min.). @ -None done U/S interpreted by me (1pt. min.). @ -None done What testing was considered but not performed or refused? (CT, X-rays, U/S, labs)? Why? @ -None What meds were considered but not given or refused? Why? @ -None Did you discuss the management of the patient with other professionals (professionals i.e. , PA, ENZYME CHEMIST, lab, RT, psych nurse, social sciences department chair, records analyst, teacher, health officer, bottle caser)? Give summary @ -No Was smoking cessation discussed for >3mins.? @ -No Was critical care preformed (if so, how long)? @ -No Were there social determinants of health that impacted care today? How? (Homelessness, low income, unemployed, alcoholism, drug addiction, transportation, low edu. Level, literacy, decrease access to med. care, snf, rehab)? @ -No Was there de-escalation of care discussed even if they declined (Discuss DNR or withdrawal of care, Hospice)? DNR status @ -No What co-morbidities impacted this encounter? (DM, HTN, Smoking, COPD, CAD, Cancer, CVA, ARF, Chemo, Hep., AIDS, mental health diagnosis, sleep apnea, morbid obesity)? @ -None Was patient admitted / discharged? Hospital course, mention meds given and route, prescriptions, significant lab abnormalities, going to OR and other pertinent info. @ -48-year-old male presenting with chief complaint of bilateral thigh pain. This pain is not radiate down the leg. No injury or trauma. This is a soreness that is worse he has not taken anything for the pain. On physical exam there is no edema. The legs are warm. Neurovascular intact. Patient is given Norflex and Toradol. On reassessment he reports improvement in the pain. Patient's blood pressure was remarkably high, he was given 0.1 mg Catapres. On reassessment his blood pressure has improved. He is educated on today's fin dings and supportive management at home. Discharged home. Follow-up with PCP. Report back to ER with any new or worsening symptoms. Discussed return parameters and answered all questions. Patient conveyed verbal understanding and agreed to the plan. I discussed this case in detail with my attending Dr. Kinney Undiagnosed new problem with uncertain prognosis? @ -No Drug Therapy requiring intensive monitoring for toxicity (Heparin, Nitro, Insulin, Cardizem)? @ -No Were any procedures done? @ -No Diagnosis/symptom? @ -Leg pain Acute, or Chronic, or Acute on Chronic? @ -Acute Uncomplicated (without systemic symptoms) or Complicated (systemic symptoms)? @ -Uncomplicated Side effects of treatment? @ -No Exacerbation, Progression, or Severe Exacerbation? @ -No Poses a threat to life or bodily function? How? (Chest pain, [place], [place], pneumonia, PE, COPD, DKA, ARF, appy, cholecystitis, CVA, Diverticulitis, Homicidal, Suicidal, threat to staff... and all critical care pts) @ -No Diagnosis/symptom? @Hypertension Acute, or Chronic, or Acute on Chronic? @Acute on chronic Uncomplicated (without systemic symptoms) or Complicated (systemic symptoms)? @Uncomplicated Side effects of treatment? @None Exacerbation, Progression, or Severe Exacerbation] @No Poses a threat to life or bodily function? @yes Disposition Clinical Impression: Leg pain Disposition: HOME SELF-CARE Condition: Good Instructions (If sedation given, give patient instructions): Leg Pain (ED) Additional Instructions: Follow-up with PCP. Report back to ER with any new or worsening symptoms. Is patient prescribed a controlled substance at d/c from ED?: No Referrals: None,Stated [Primary Care Provider] - 1-2 days Vivek Teixeira MD [STAFF PHYSICIAN] - 1-2 days Time of Disposition: 03:45
[2024-01-27 03:52] VITALS: BP 150/94; PULSE 72; RESP 16
== END 2024-01-27 03:50 | disposition home or self-care (01) ==
LOC: EC 02:40
DX: M79.652 Pain in left thigh (principal); M79.651 Pain in right thigh; I10 Essential (primary) hypertension; F17.290 Nicotine dependence, other tobacco product, uncomplicated; Z91.041 Radiographic dye allergy status
CPT/HCPCS: 99283; 96372 ×2; J2360; J1885

== ENCOUNTER 2024-01-28 01:52 | Emergency (ER) | payer OTHER ==
--- NOTE | 2024-01-28 02:18 | ED ---
General Adult HPI - General Chief complaint: Chest Pain Stated complaint: Chest pain Time Seen by Provider: 01/28/24 02:01 Source: patient, RN notes reviewed, old records reviewed Mode of arrival: ambulatory Limitations: no limitations - History of Present Illness Initial comments: 48-year-old male history of diabetes, coronary artery disease presents with an episode of chest pain which was several hours prior to arrival. Pain was not associated with any radiation, no nausea or vomiting, no diaphoresis. Pain is completely resolved at the time of my evaluation. Patient has no specific complaints. He had recent admission for recurrent chest pain with known coronary artery disease. - Related Data Home Medications Medication Instructions Recorded Confirmed Acetaminophen Tab [Tylenol] 500 - 1,000 mg PO Q6H PRN MDD 8 01/21/24 01/21/24 tabs Insulin Aspart [Insulin Aspart 12 unit SQ AC-TID 01/21/24 01/21/24 Flexpen] Previous Rx's Medication Instructions Recorded Insulin Detemir (Levemir) [Levemir] 30 unit SQ HS #7 each 09/02/23 Aspirin 81 mg PO DAILY #90 tab 11/12/23 Atorvastatin [Lipitor] 40 mg PO DAILY #90 tab 11/12/23 Famotidine [Pepcid] 20 mg PO BID #28 tablet 11/26/23 Mag Hydrox/Al Hydrox/Simeth 10 - 20 ml PO QID PRN #473 ml 12/07/23 [Maalox] Clopidogrel [Plavix] 75 mg PO DAILY #90 tab 12/14/23 Losartan [Cozaar] 50 mg PO DAILY #90 tab 12/14/23 carvediloL [Coreg*] 12.5 mg PO BID-W/MEALS tab 12/14/23 Gabapentin 300 mg PO HS #20 cap 01/19/24 Isosorbide Mononitrate ER [Imdur] 30 mg PO DAILY 30 Days #30 tab 01/22/24 Allergies Allergy/AdvReac Type Severity Reaction Status Date / Time blue dye AdvReac Rapid Verified 01/21/24 12:44 Heart Rate Review of Systems ROS Statement: Those systems with pertinent positive or pertinent negative responses have been documented in the HPI. ROS Other: All systems not noted in ROS Statement are negative. Past Medical History Past Medical History: Coronary Artery Disease (CAD), Chest Pain / Angina, Diabetes Mellitus, Hypertension Additional Past Medical History / Comment(s): pt type 1 diabetes Last Myocardial Infarction Date:: 2021 History of Any Multi-Drug Resistant Organisms: None Reported Past Surgical History: Orthopedic Surgery Additional Past Surgical History / Comment(s): Knee surgey 1993 Past Anesthesia/Blood Transfusion Reactions: No Reported Reaction Past Psychological History: Schizophrenia Smoking Status: Current every day smoker, Vaper Past Alcohol Use History: Occasional Past Drug Use History: Marijuana - Past Family History Father Family Medical History: Coronary Artery Disease (CAD) General Exam Limitations: no limitations General appearance: alert, in no apparent distress Head exam: Present: atraumatic, normocephalic Eye exam: Present: normal appearance, PERRL ENT exam: Present: normal exam Neck exam: Present: normal inspection. Absent: tenderness, meningismus Respiratory exam: Present: normal lung sounds bilaterally. Absent: respiratory distress, wheezes Cardiovascular Exam: Present: regular rate, normal rhythm GI/Abdominal exam: Present: soft. Absent: distended, tenderness, guarding Extremities exam: Present: normal inspection, normal capillary refill Neurological exam: Present: alert, oriented X3, CN II-XII intact. Absent: motor sensory deficit Psychiatric exam: Present: normal affect, normal mood Skin exam: Present: warm, dry, intact. Absent: cyanosis, diaphoretic Course Vital Signs 01/28/24 01/28/24 01:57 02:51 Temperature 98.2 F Pulse Rate 81 76 Respiratory 18 16 Rate Blood Pressure 179/115 164/97 O2 Sat by Pulse 99 94 L Oximetry Medical Decision Making - Medical Decision Making Was pt. sent in by a medical professional or institution (, PA, PERSON INVESTIGATOR, urgent care, hospital, or senior care...) When possible be specific @ -No Did you speak to anyone other than the patient for history (EMS, parent, family, police, friend...)? What history was obtained from this source @ -No Did you review nursing and triage notes (agree or disagree)? Why? @ -I reviewed and agree with nursing and triage notes Were old charts reviewed (outside hosp., previous admission, EMS record, old EKG, old radiological studies, urgent care reports/EKG's, senior care records)? Report findings @ -No old charts were reviewed Differential Diagnosis (chest pain, altered mental status, abdominal pain women, abdominal pain men, vaginal bleeding, weakness, fever, dyspnea, syncope, headache, dizziness, GI bleed, back pain, seizure, CVA, palpatations, mental health, musculoskeletal)? @Differential Chest Pain: Stable Angina, Unstable Angina, STEMI, NSTEMI Aortic Dissection, Pneumothorax, Musculoskeletal, Esophageal Spasm GERD, Cholecystitis, Pancreatitis, Zoster, this is not meant to be an all-inclusive list. EKG interpreted by me (3pts min.). @Sinus rhythm rate of 77, [place] interval 142, QRS duration 91, QTc [address] segme nt elevation X-rays interpreted by me (1pt min.). @ -Chest x-ray negative for acute cardiopulmonary findings. CT interpreted by me (1pt min.). @ -None done U/S interpreted by me (1pt. min.). @ -None done What testing was considered but not performed or refused? (CT, X-rays, U/S, labs)? Why? @ -None What meds were considered but not given or refused? Why? @ -None Did you discuss the management of the patient with other professionals (professionals i.e. , PA, PERSON INVESTIGATOR, lab, RT, psych nurse, social insurance adviser, city constable, teacher, loan officer, caseworker)? Give summary @ -No Was smoking cessation discussed for >3mins.? @ -No Was critical care preformed (if so, how long)? @ -No Were there social determinants of health that impacted care today? How? (Homelessness, low income, unemployed, alcoholism, drug addiction, transportation, low edu. Level, literacy, decrease access to med. care, shelter, rehab)? @ -No Was there de-escalation of care discussed even if they declined (Discuss DNR or withdrawal of care, Hospice)? DNR status @ -No What co-morbidities impacted this encounter? (DM, HTN, Smoking, COPD, CAD, Cancer, CVA, ARF, Chemo, Hep., AIDS, mental health diagnosis, sleep apnea, morbi d obesity)? @ CAD Was patient admitted / discharged? Hospital course, mention meds given and route, prescriptions, significant lab abnormalities, going to OR and other pertinent info. @ 48-year-old male with a brief episode of chest pain which was resolved prior to arrival. No associated features of nausea, diaphoresis, no radiation. Patient remains chest pain-free while in the emergency department. I do feel this patient is stable for outpatient follow-up and continue medical management. Return parameters discussed. Drug Therapy requiring intensive monitoring for toxicity (Heparin, Nitro, Insulin, Cardizem)? @ -No Were any procedures done? @ -No Diagnosis/symptom? @ -Chest pain, resolved Acute, or Chronic, or Acute on Chronic? @ -Acute on chronic Uncomplicated (without systemic symptoms) or Complicated (systemic symptoms)? @ -Default Side effects of treatment? @ -No Exacerbation, Progression, or Severe Exacerbation? @ -No Poses a threat to life or bodily function? How? (Chest pain, [place], [place], pneumonia, PE, COPD, DKA, ARF, appy, cholecystitis, CVA, Diverticulitis, Homicidal, Suicidal, threat to staff... and all critical care pts) @Low risk at this time - Lab Data Result diagrams: 01/28/24 02:57 01/28/24 02:57 Lab Results 01/28/24 01/28/24 01/28/24 Range/Units 02:57 02:57 02:57 WBC 5.7 (3.8-10.6) k/uL RBC 4.37 (4.30-5.90) m/uL Hgb 13.0 (13.0-17.5) gm/dL Hct 40.2 (39.0-53.0) % MCV 92.0 (80.0-100.0) fL MCH 29.7 (25.0-35.0) pg MCHC 32.3 (31.0-37.0) g/dL RDW 13.1 (11.5-15.5) % Plt Count 226 (150-450) k/uL MPV 8.9 Neutrophils % 50 % Lymphocytes % 39 % Monocytes % 6 % Eosinophils % 2 % Basophils % 0 % Neutrophils # 2.8 (1.3-7.7) k/uL Lymphocytes # 2.3 (1.0-4.8) k/uL Monocytes # 0.4 (0-1.0) k/uL Eosinophils # 0.1 (0-0.7) k/uL Basophils # 0.0 (0-0.2) k/uL PT 9.9 L (10.0-12.5) sec INR 0.9 (<1.2) APTT 27.0 (22.0-30.0) sec Sodium 135 L (137-145) mmol/L Potassium 4.2 (3.5-5.1) mmol/L Chloride 102 (98-107) mmol/L Carbon Dioxide 31 H (22-30) mmol/L Anion Gap 2 mmol/L BUN 24 H (9-20) mg/dL Creatinine 1.13 (0.66-1.25) mg/dL Est GFR (CKD-EPI)AfAm 89 (>60 ml/min/1.73 sqM) Est GFR (CKD-EPI)NonAf 77 (>60 ml/min/1.73 sqM) Glucose 344 H (74-99) mg/dL Calcium 8.6 (8.4-10.2) mg/dL Magnesium 1.8 (1.6-2.3) mg/dL Total Bilirubin 0.3 (0.2-1.3) mg/dL AST 28 (17-59) U/L ALT 19 (4-49) U/L Alkaline Phosphatase 110 (38-126) U/L Troponin I (0.000-0.034) ng/mL Total Protein 5.4 L (6.3-8.2) g/dL Albumin 2.8 L (3.5-5.0) g/dL 01/28/24 Range/Units 02:57 WBC (3.8-10.6) k/uL RBC (4.30-5.90) m/uL Hgb (13.0-17.5) gm/dL Hct (39.0-53.0) % MCV (80.0-100.0) fL MCH (25.0-35.0) pg MCHC (31.0-37.0) g/dL RDW (11.5-15.5) % Plt Count (150-450) k/uL MPV Neutrophils % % Lymphocytes % % Monocytes % % Eosinophils % % Basophils % % Neutrophils # (1.3-7.7) k/uL Lymphocytes # (1.0-4.8) k/uL Monocytes # (0-1.0) k/uL Eosinophils # (0-0.7) k/uL Basophils # (0-0.2) k/uL PT (10.0-12.5) sec INR (<1.2) APTT (22.0-30.0) sec Sodium (137-145) mmol/L Potassium (3.5-5.1) mmol/L Chloride (98-107) mmol/L Carbon Dioxide (22-30) mmol/L Anion Gap mmol/L BUN (9-20) mg/dL Creatinine (0.66-1.25) mg/dL Est GFR (CKD-EPI)AfAm (>60 ml/min/1.73 sqM) Est GFR (CKD-EPI)NonAf (>60 ml/min/1.73 sqM) Glucose (74-99) mg/dL Calcium (8.4-10.2) mg/dL Magnesium (1.6-2.3) mg/dL Total Bilirubin (0.2-1.3) mg/dL AST (17-59) U/L ALT (4-49) U/L Alkaline Phosphatase (38-126) U/L Troponin I <0.012 (0.000-0.034) ng/mL Total Protein (6.3-8.2) g/dL Albumin (3.5-5.0) g/dL Disposition Clinical Impression: Chest pain, Atypical chest pain Disposition: HOME SELF-CARE Condition: Fair Instructions (If sedation given, give patient instructions): Chest Pain (ED) Is patient prescribed a controlled substance at d/c from ED?: No Referrals: None,Stated [Primary Care Provider] - 1-2 days Time of Disposition: 03:44
[2024-01-28 02:21] VITALS: TEMP 98.2
[2024-01-28 02:57] VITALS: BP 164/97; PULSE 76; RESP 16
[2024-01-28 03:10] LABS: Basophils % (A) 0 %; Eosinophils # (A) 0.1 k/uL (0-0.7); Eosinophils % (A) 2 %; HCT 40.2 % (39.0-53.0); Lymphocytes # (A) 2.3 k/uL (1.0-4.8); Lymphocytes % (A) 39 %; MCH 29.7 pg (25.0-35.0); MCHC 32.3 g/dL (31.0-37.0); Mean Platelet Volume 8.9; Monocytes # (A) 0.4 k/uL (0-1.0); Monocytes % (A) 6 %; Neutrophils # (A) 2.8 k/uL (1.3-7.7); Neutrophils % (A) 50 %; Platelet Count 226 k/uL (150-450); RBC 4.37 m/uL (4.30-5.90); RDW 13.1 % (11.5-15.5); WBC 5.7 k/uL (3.8-10.6)
[2024-01-28 03:19] LABS: ALT 19 U/L (4-49); AST 28 U/L (17-59); African American GFR (CKD) 89 (>60 ml/min/1.73 sqM); Albumin 2.8 g/dL (3.5-5.0); Alkaline Phosphatase 110 U/L (38-126); Anion Gap 2 mmol/L; Blood Urea Nitrogen 24 mg/dL (9-20); Calcium 8.6 mg/dL (8.4-10.2); Carbon Dioxide 31 mmol/L (22-30); Chloride 102 mmol/L (98-107); Glucose 344 mg/dL (74-99); Magnesium 1.8 mg/dL (1.6-2.3); Non-African American GFR(CKD) 77 (>60 ml/min/1.73 sqM); Potassium 4.2 mmol/L (3.5-5.1); Sodium 135 mmol/L (137-145); Total Bilirubin 0.3 mg/dL (0.2-1.3); Total Protein 5.4 g/dL (6.3-8.2)
[2024-01-28 03:34] LABS: INR 0.9 (<1.2); Prothrombin Time 9.9 sec (10.0-12.5)
== END 2024-01-28 04:08 | disposition home or self-care (01) ==
LOC: EC 01:52
DX: R07.89 Other chest pain (principal); F17.290 Nicotine dependence, other tobacco product, uncomplicated; F12.90 Cannabis use, unspecified, uncomplicated; Z91.041 Radiographic dye allergy status
CPT/HCPCS: 36415; 71046; 80053; 83735; 84484; 85025; 85610; 85730; 93005; 99285

== ENCOUNTER 2024-03-22 17:36 | Emergency (ER) | payer OTHER ==
[2024-03-22 18:01] VITALS: PULSE 99; RESP 18; TEMP 98.1
--- NOTE | 2024-03-22 18:04 | ED ---
Extremity Problem HPI - General Source: patient, RN notes reviewed Mode of arrival: ambulatory Limitations: no limitations <Enzo Hampton - Last Filed: 03/22/24 18:04> <Leno Cardoso - Last Filed: 03/22/24 20:31> - General Chief complaint: Extremity Problem,Nontraumatic Stated complaint: Swollen Hands Time Seen by Provider: 03/22/24 18:04 - History of Present Illness Initial comments: Note: 49-year-old male presenting to the ER with a chief complaint of bilateral hand swelling. He reports this started today. Denies any known traumas or injuries. (Enzo Hampton) - Related Data Home Medications Medication Instructions Recorded Confirmed Acetaminophen Tab [Tylenol] 500 - 1,000 mg PO Q6H PRN MDD 8 01/21/24 01/21/24 tabs Insulin Aspart [Insulin Aspart 12 unit SQ AC-TID 01/21/24 01/21/24 Flexpen] Previous Rx's Medication Instructions Recorded Insulin Detemir (Levemir) [Levemir] 30 unit SQ HS #7 each 09/02/23 Aspirin 81 mg PO DAILY #90 tab 11/12/23 Atorvastatin [Lipitor] 40 mg PO DAILY #90 tab 11/12/23 Famotidine [Pepcid] 20 mg PO BID #28 tablet 11/26/23 Mag Hydrox/Al Hydrox/Simeth 10 - 20 ml PO QID PRN #473 ml 12/07/23 [Maalox] Clopidogrel [Plavix] 75 mg PO DAILY #90 tab 12/14/23 Losartan [Cozaar] 50 mg PO DAILY #90 tab 12/14/23 carvediloL [Coreg*] 12.5 mg PO BID-W/MEALS tab 12/14/23 Gabapentin 300 mg PO HS #20 cap 01/19/24 Isosorbide Mononitrate ER [Imdur] 30 mg PO DAILY 30 Days #30 tab 01/22/24 Allergies Allergy/AdvReac Type Severity Reaction Status Date / Time blue dye AdvReac Rapid Verified 03/22/24 18:02 Heart Rate Review of Systems ROS Other: All systems not noted in ROS Statement are negative. <Enzo Hampton - Last Filed: 03/22/24 18:04> ROS Other: All systems not noted in ROS Statement are negative. <Leno Cardoso - Last Filed: 03/22/24 20:31> ROS Statement: Those systems with pertinent positive or pertinent negative responses have been documented in the HPI. Past Medical History Past Medical History: Coronary Artery Disease (CAD), Chest Pain / Angina, Diabetes Mellitus, Hypertension Additional Past Medical History / Comment(s): pt type 1 diabetes Last Myocardial Infarction Date:: 2021 History of Any Multi-Drug Resistant Organisms: None Reported Past Surgical History: Orthopedic Surgery Additional Past Surgical History / Comment(s): Knee surgey 1993 Past Anesthesia/Blood Transfusion Reactions: No Reported Reaction Past Psychological History: Schizophrenia Smoking Status: Current every day smoker, Vaper Past Alcohol Use History: Occasional Past Drug Use History: Marijuana - Past Family History Father Family Medical History: Coronary Artery Disease (CAD) <Enzo Hampton - Last Filed: 03/22/24 18:04> General Exam Limitations: no limitations <Enzo Hampton - Last Filed: 03/22/24 18:04> - General Exam Comments Initial Comments: Visual Physical Exam Vital signs reviewed General: Well-appearing, nontoxic, no acute distress. Head: Normocephalic, atraumatic Eyes: PERRLA, EOMI ENT: Airway patent Chest: Nonlabored breathing Skin: No visual rash, normal skin tone Neuro: Alert and oriented 3 Musculoskeletal: No gross abnormalities (Enzo Hampton) Course Vital Signs 03/22/24 17:58 Temperature 98.1 F Pulse Rate 99 Respiratory 18 Rate O2 Sat by Pulse 100 Oximetry Medical Decision Making <Enzo Hampton - Last Filed: 03/22/24 18:04> <Leno Cardoso - Last Filed: 03/22/24 20:31> - Medical Decision Making I performed the quick note portion of this chart. Electronically signed by Enzo Hampton PA-C (Enzo Hampton) Patient seen in triage as a quick note. Patient left AGAINST MEDICAL ADVICE prior to completing formal evaluation. (Leno Cardoso) Disposition <Enzo Hampton - Last Filed: 03/22/24 18:04> <Leno Cardoso - Last Filed: 03/22/24 20:31> Clinical Impression: Arm swelling Disposition: LEFT AGAINST MEDICAL ADVICE Referrals: None,Stated [Primary Care Provider] - 1-2 days
== END 2024-03-22 20:40 | disposition left against medical advice (07) ==
LOC: EC 17:36
DX: M79.89 Other specified soft tissue disorders (principal); F17.290 Nicotine dependence, other tobacco product, uncomplicated; F12.90 Cannabis use, unspecified, uncomplicated; Z91.041 Radiographic dye allergy status; Z53.29 Procedure and treatment not carried out because of patient's decision for other reasons
CPT/HCPCS: 99283

== ENCOUNTER 2024-07-02 21:09 | Emergency (ER) | payer OTHER ==
[2024-07-02 21:18] VITALS: RESP 18; TEMP 98.2
--- NOTE | 2024-07-02 21:50 | ED ---
Dizziness HPI - General Source: patient Mode of arrival: ambulatory Limitations: no limitations <Nasra Mitchell - Last Filed: 07/02/24 21:49> <Ariela Patrick - Last Filed: 07/16/24 00:23> - General Chief Complaint: Dizziness Stated Complaint: Dizziness Time Seen by Provider: 07/02/24 21:49 - History of Present Illness Initial Comments: 49-year-old male presenting with chief complaint of dizziness. Started about 30 minutes ago. No chest pain or difficulty breathing. (Nasra Mitchell) 49-year-old male with past medical history of coronary disease, hypertension who presents emergency department with dizziness. States that he has been lightheaded intermittently for months. States that he started having acute symptoms 30 minutes ago. Reports that his symptoms are related to positional change. Patient feels lightheaded and off-balance when he stands. He denies any headaches or visual changes. No nausea or vomiting. No chest pain or difficulty breathing no other alleviating, precipitating or modifying factors (Ariela Patrick) - Related Data Home Medications Medication Instructions Recorded Confirmed Acetaminophen Tab [Tylenol] 500 - 1,000 mg PO Q6H PRN MDD 8 01/21/24 01/21/24 tabs Insulin Aspart [Insulin Aspart 12 unit SQ AC-TID 01/21/24 01/21/24 Flexpen] Previous Rx's Medication Instructions Recorded Insulin Detemir (Levemir) [Levemir] 30 unit SQ HS #7 each 09/02/23 Aspirin 81 mg PO DAILY #90 tab 11/12/23 Atorvastatin [Lipitor] 40 mg PO DAILY #90 tab 11/12/23 Famotidine [Pepcid] 20 mg PO BID #28 tablet 11/26/23 Mag Hydrox/Al Hydrox/Simeth 10 - 20 ml PO QID PRN #473 ml 12/07/23 [Maalox] Clopidogrel [Plavix] 75 mg PO DAILY #90 tab 12/14/23 Losartan [Cozaar] 50 mg PO DAILY #90 tab 12/14/23 carvediloL [Coreg*] 12.5 mg PO BID-W/MEALS tab 12/14/23 Gabapentin 300 mg PO HS #20 cap 01/19/24 Isosorbide Mononitrate ER [Imdur] 30 mg PO DAILY 30 Days #30 tab 01/22/24 Allergies Allergy/AdvReac Type Severity Reaction Status Date / Time blue dye AdvReac Rapid Verified 07/02/24 21:18 Heart Rate Review of Systems ROS Other: All systems not noted in ROS Statement are negative. <MitchellDevongabejean paul - Last Filed: 07/02/24 21:49> ROS Other: All systems not noted in ROS Statement are negative. <AyanashelyAriela Mahi - Last Filed: 07/16/24 00:23> ROS Statement: Those systems with pertinent positive or pertinent negative responses have been documented in the HPI. Past Medical History Past Medical History: Coronary Artery Disease (CAD), Chest Pain / Angina, Diabetes Mellitus, Hypertension Additional Past Medical History / Comment(s): pt type 1 diabetes Last Myocardial Infarction Date:: 2021 History of Any Multi-Drug Resistant Organisms: None Reported Past Surgical History: Orthopedic Surgery Additional Past Surgical History / Comment(s): Knee surgey 1993 Past Anesthesia/Blood Transfusion Reactions: No Reported Reaction Past Psychological History: Schizophrenia Smoking Status: Current every day smoker, Vaper Past Alcohol Use History: Occasional Past Drug Use History: Marijuana - Past Family History Father Family Medical History: Coronary Artery Disease (CAD) <MitchellDevonpritesh - Last Filed: 07/02/24 21:49> General Exam Limitations: no limitations <Nasra Mitchlel - Last Filed: 07/02/24 21:49> General appearance: alert, in no apparent distress Head exam: Present: atraumatic, normocephalic, normal inspection Eye exam: Present: normal appearance, PERRL, EOMI. Absent: scleral icterus, conjunctival injection, periorbital swelling ENT exam: Present: normal exam, mucous membranes moist Neck exam: Present: normal inspection. Absent: tenderness, meningismus, lymphadenopathy Respiratory exam: Present: normal lung sounds bilaterally. Absent: respiratory distress, wheezes, rales, rhonchi, stridor Cardiovascular Exam: Present: regular rate, normal rhythm, normal heart sounds. Absent: systolic murmur, diastolic murmur, rubs, gallop, clicks GI/Abdominal exam: Present: soft, normal bowel sounds. Absent: distended, tenderness, guarding, rebound, rigid Extremities exam: Present: normal inspection, full ROM, normal capillary refill. Absent: tenderness, pedal edema, joint swelling, calf tenderness Back exam: Present: normal inspection Neurological exam: Present: alert, oriented X3, CN II-XII intact Psychiatric exam: Present: normal affect, normal mood Skin exam: Present: warm, dry, intact, normal color. Absent: rash <Ariela Patrick - Last Filed: 07/16/24 00:23> - General Exam Comments Initial Comments: Visual Physical Exam Vital signs reviewed General: Well-appearing, nontoxic, no acute distress. Head: Normocephalic, atraumatic Eyes: PERRLA, EOMI ENT: Airway patent Chest: Nonlabored breathing Skin: No visual rash, normal skin tone Neuro: Alert and oriented 3 Musculoskeletal: No gross abnormalities (Nasra Mitchell) Course Vital Signs 07/02/24 07/03/24 07/03/24 21:16 02:07 03:38 Temperature 98.2 F Pulse Rate 77 79 70 Respiratory 18 18 18 Rate Blood Pressure 161/95 165/111 174/96 O2 Sat by Pulse 99 97 96 Oximetry 07/03/24 05:01 Temperature Pulse Rate 64 Respiratory 18 Rate Blood Pressure 153/65 O2 Sat by Pulse 99 Oximetry Medical Decision Making <Nasra Mitchell - Last Filed: 07/02/24 21:49> - Lab Data Result diagrams: 07/02/24 21:50 07/03/24 02:40 <Ariela Patrick - Last Filed: 07/16/24 00:23> - Medical Decision Making I performed the quick note portion of this visit, electronically signed Nasra Mitchell PA-C (Nasra Mitchell) Was pt. sent in by a medical professional or institution ([facility], HEAD OF BIOLOGY, urgent care, hospital, or senior care...) When possible be specific @ -No Did you speak to anyone other than the patient for history (EMS, parent, family, police, friend...)? What history was obtained from this source @ -No Did you review nursing and triage notes (agree or disagree)? Why? @ -I reviewed and agree with nursing and triage notes Were old charts reviewed (outside hosp., previous admission, EMS record, old EKG, old radiological studies, urgent care reports/EKG's, senior care records)? Report findings @ -No old charts were reviewed Differential Diagnosis (chest pain, altered mental status, abdominal pain women, abdominal pain men, vaginal bleeding, weakness, fever, dyspnea, syncope, headache, dizziness, GI bleed, back pain, seizure, CVA, palpatations, mental health, musculoskeletal)? @ -Differential Dizziness: Benign paroxysmal positional Vertigo, Meniere's disease, otitis media, acoustic neuroma, vertebrobasilar insufficiency, cerebellar stroke, encephalitis, hypovolemic, arrhythmia, coronary artery syndrome, anemia, this is not meant to be an all-inclusive list EKG interpreted by me (3pts min.). @ -Yes and demonstrates sinus rhythm with a rate of 71. AK interval 159. QRS 90. QTc of 453. No acute ST segment elevations or depressions X-rays interpreted by me (1pt min.). @ -Yes and demonstrates no acute process CT interpreted by me (1pt min.). @ -Yes and demonstrates no acute process U/S interpreted by me (1pt. min.). @ -None done What testing was considered but not performed or refused? (CT, X-rays, U/S, labs)? Why? @ -None What meds were considered but not given or refused? Why? @ -None Did you discuss the management of the patient with other professionals (professionals i.e. , PA, HEAD OF BIOLOGY, lab, RT, psych nurse, social media marketing manager, rug dyer helper, teacher, escrow officer, senior case manager)? Give summary @ -No Was smoking cessation discussed for >3mins.? @ -No Was critical care preformed (if so, how long)? @ -No Were there social determinants of health that impacted care today? How? (Homele ssness, low income, unemployed, alcoholism, drug addiction, transportation, low edu. Level, literacy, decrease access to med. care, fdc, rehab)? @ -No Was there de-escalation of care discussed even if they declined (Discuss DNR or withdrawal of care, Hospice)? DNR status @ -No What co-morbidities impacted this encounter? (DM, HTN, Smoking, COPD, CAD, Cancer, CVA, ARF, Chemo, Hep., AIDS, mental health diagnosis, sleep apnea, morbid obesity)? @ -Diabetes mellitus, coronary disease Was patient admitted / discharged? Hospital course, mention meds given and route, prescriptions, significant lab abnormalities, going to OR and other pertinent info. @ -Upon arrival patient seen and evaluated in room 25. Thorough history and physical exam was performed. IV access was established. Laboratories studies were conducted. Chest x-ray was performed. Patient does go for CT of his brain. Results are within normal limits. They are discussed with the patient. He feels comfortable discharge at this time. Instructed to follow-up with his primary care doctor for further evaluation of his symptoms and return for any new or worsening symptoms Undiagnosed new problem with uncertain prognosis? @ -No Drug Therapy requiring intensive monitoring for toxicity (Heparin, Nitro, Insulin, Cardizem)? @ -No Were any procedures done? @ -No Diagnosis/symptom? @Near syncope Acute, or Chronic, or Acute on Chronic? @ -Acute Uncomplicated (without systemic symptoms) or Complicated (systemic symptoms)? @ -Complicated Side effects of treatment? @ -No Exacerbation, Progression, or Severe Exacerbation? @ -No Poses a threat to life or bodily function? How? (Chest pain, [place], NV, pneumonia, PE, COPD, DKA, ARF, appy, cholecystitis, CVA, Diverticulitis, Homicidal, Suicidal, threat to staff... and all critical care pts) @ -No (Ariela Patrick) - Lab Data Lab Results 07/02/24 07/02/24 07/03/24 Range/Units 21:50 21:50 02:40 WBC 8.9 (3.8-10.6) k/uL RBC 4.55 (4.30-5.90) m/uL Hgb 13.7 (13.0-17.5) gm/dL Hct 41.3 (39.0-53.0) % MCV 90.7 (80.0-100.0) fL MCH 30.1 (25.0-35.0) pg MCHC 33.1 (31.0-37.0) g/dL RDW 13.2 (11.5-15.5) % Plt Count 232 (150-450) k/uL MPV 9.5 Neutrophils % 59 % Lymphocytes % 30 % Monocytes % 8 % Eosinophils % 2 % Basophils % 1 % Neutrophils # 5.2 (1.3-7.7) k/uL Lymphocytes # 2.7 (1.0-4.8) k/uL Monocytes # 0.7 (0-1.0) k/uL Eosinophils # 0.2 (0-0.7) k/uL Basophils # 0.0 (0-0.2) k/uL Sodium 135 L (137-145) mmol/L Potassium 4.0 (3.5-5.1) mmol/L Chloride 99 (98-107) mmol/L Carbon Dioxide 28 (22-30) mmol/L Anion Gap 8 mmol/L BUN 27 H (9-20) mg/dL Creatinine 1.37 H (0.66-1.25) mg/dL Est GFR (CKD-EPI)AfAm 70 (>60 ml/min/1.73 sqM) Est GFR (CKD-EPI)NonAf 61 (>60 ml/min/1.73 sqM) Glucose 321 H (74-99) mg/dL Calcium 8.7 (8.4-10.2) mg/dL Total Bilirubin 0.5 (0.2-1.3) mg/dL AST 20 (17-59) U/L ALT 17 (4-49) U/L Alkaline Phosphatase 104 (38-126) U/L Troponin I <0.012 (0.000-0.034) ng/mL Total Protein 5.9 L (6.3-8.2) g/dL Albumin 3.3 L (3.5-5.0) g/dL Disposition <Nasra Mitchell - Last Filed: 07/02/24 21:49> Is patient prescribed a controlled substance at d/c from ED?: No Time of Disposition: 04:22 <Ariela Patrick - Last Filed: 07/16/24 00:23> Clinical Impression: Near syncope Disposition: HOME SELF-CARE Condition: Stable Instructions (If sedation given, give patient instructions): Dizziness (ED) Additional Instructions: Drink plenty of fluids. Follow-up with your doctor in 1-2 days and return for any new or worsening symptoms Referrals: None,Stated [Primary Care Provider] - 1-2 days
[2024-07-03 01:00] LABS: Basophils % (A) 1 %; Eosinophils # (A) 0.2 k/uL (0-0.7); Eosinophils % (A) 2 %; HCT 41.3 % (39.0-53.0); HGB 13.7 gm/dL (13.0-17.5); Lymphocytes # (A) 2.7 k/uL (1.0-4.8); Lymphocytes % (A) 30 %; MCH 30.1 pg (25.0-35.0); MCHC 33.1 g/dL (31.0-37.0); MCV 90.7 fL (80.0-100.0); Mean Platelet Volume 9.5; Monocytes # (A) 0.7 k/uL (0-1.0); Monocytes % (A) 8 %; Neutrophils # (A) 5.2 k/uL (1.3-7.7); Neutrophils % (A) 59 %; Platelet Count 232 k/uL (150-450); RBC 4.55 m/uL (4.30-5.90); RDW 13.2 % (11.5-15.5); WBC 8.9 k/uL (3.8-10.6)
[2024-07-03] MEDS: SODIUM CHLORIDE 0.9% 1,000 ML IV STA (01:00)
--- NOTE | 2024-07-03 01:36 | CT ---
EXAM: CT Head Without Intravenous Contrast CLINICAL HISTORY: ITS.REASON CT Reason: ataxia, hx cva TECHNIQUE: Axial computed tomography images of the head/brain without intravenous contrast. CTDI is 45.2 mGy and DLP is 1059 mGy-cm. This CT exam was performed using one or more of the following dose reduction techniques: automated exposure control, adjustment of the mA and/or kV according to patient size, and/or use of iterative reconstruction technique. COMPARISON: 09/06/2023. FINDINGS: Brain: Unremarkable. No hemorrhage. No significant white matter disease. No acute intracranial pathology is detected. No abnormal extra- axial collection is noted. Midline shift: Midline anatomy is unremarkable. Ventricles: Unremarkable. No ventriculomegaly. Bones/joints: Calvarium is within normal limits. No acute fracture. Soft tissues: Unremarkable. Sinuses: Visualized sinuses are unremarkable. Mastoid air cells: Mastoid air cells are well pneumatized. Other findings: Age-related changes. IMPRESSION: 1. Age related changes. 2. No acute intracranial pathology. 3. If there is concern for etiology such as early acute lacunar infarcts, MRI imaging of the brain with diffusion-weighted sequences should be performed. EXAM: CT Cervical Spine Without Intravenous Contrast CLINICAL HISTORY: ITS.REASON CT Reason: ataxia, hx cva TECHNIQUE: Axial computed tomography images of the cervical spine without intravenous contrast. CTDI is 18.7 mGy and DLP is 552.6 mGy-cm. This CT exam was performed using one or more of the following dose reduction techniques: automated exposure control, adjustment of the mA and/or kV according to patient size, and/or use of iterative reconstruction technique. COMPARISON: No previous studies. FINDINGS: Vertebrae: Cervical and visualized thoracic vertebral bodies are maintained in height. There is a normal relationship of C1 and C2. Gentle dextroscoliosis. Transaxial images of the cervical spine reveals no acute injuries. Normal alignment of the cervical spine. Discs/spinal canal/neural foramina: Mild degenerative disc disease. No spinal canal stenosis. Soft tissues: Unremarkable. Lung apices: Lung apices are unremarkable. IMPRESSION: 1. Degenerative disc disease. 2. Normal alignment. 3. No acute injury.
--- NOTE | 2024-07-03 01:37 | XR ---
EXAM: XR Chest, 2 Views CLINICAL HISTORY: ITS.REASON XR Reason: chest pain TECHNIQUE: Frontal and lateral views of the chest. COMPARISON: No previous studies. FINDINGS: Lungs: Unremarkable. No consolidative changes. Pleural space: Unremarkable. No pneumothorax. No pleural effusions. Heart: Heart is normal in size. No cardiomegaly. Mediastinum: Unremarkable. Normal mediastinal contour. Bones/joints: Osseous structures and soft tissues are unremarkable. No acute fracture. IMPRESSION: 1. No consolidative changes. 2. No pleural effusions.
[2024-07-03 04:05] LABS: ALT 17 U/L (4-49); AST 20 U/L (17-59); African American GFR (CKD) 70 (>60 ml/min/1.73 sqM); Albumin 3.3 g/dL (3.5-5.0); Alkaline Phosphatase 104 U/L (38-126); Anion Gap 8 mmol/L; Blood Urea Nitrogen 27 mg/dL (9-20); Calcium 8.7 mg/dL (8.4-10.2); Carbon Dioxide 28 mmol/L (22-30); Chloride 99 mmol/L (98-107); Glucose 321 mg/dL (74-99); Non-African American GFR(CKD) 61 (>60 ml/min/1.73 sqM); Sodium 135 mmol/L (137-145); Total Bilirubin 0.5 mg/dL (0.2-1.3); Total Protein 5.9 g/dL (6.3-8.2)
[2024-07-03 05:02] VITALS: BP 153/65; PULSE 64
== END 2024-07-03 05:14 | disposition home or self-care (01) ==
LOC: EC 21:09
DX: R42 Dizziness and giddiness
CPT/HCPCS: 36415; 70450; 71046; 72125; 80053; 84484; 85025; 93005; 96360; 99285

== ENCOUNTER 2025-02-11 16:34 | Inpatient (IN) | payer OTHER ==
[2025-02-11 17:05] LABS: Glucose,Whole Blood 326 mg/dL (70-110)
[2025-02-11 17:27] LABS: Basophils # (A) 0.05 10*3/uL (0.00-0.10); Basophils % (A) 0.7 %; Eosinophils # (A) 0.31 10*3/uL (0.04-0.35); Eosinophils % (A) 4.4 %; HCT 41.9 % (39.6-50.0); HGB 14.5 g/dL (13.0-17.0); Lymphocytes # (A) 2.11 10*3/uL (0.90-5.00); Lymphocytes % (A) 29.6 %; MCHC 34.6 g/dL (32.0-37.0); MCV 86.7 fL (80.0-97.0); Mean Platelet Volume 11.9 fL (9.5-12.2); Monocytes # (A) 0.77 10*3/uL (0.20-1.00); Monocytes % (A) 10.8 %; Neutrophils # (A) 3.86 10*3/uL (1.80-7.70); Neutrophils % (A) 54.2 %; Platelet Count 252 10*3/uL (140-440); RBC 4.83 10*6/uL (4.40-5.60); RDW 13.4 % (11.5-14.5); WBC 7.12 10*3/uL (4.50-10.00)
[2025-02-11 17:38] LABS: Partial Thromboplastin Time 26.1 sec (22.0-30.0); Prothrombin Time 11.2 sec (10.0-12.5)
--- NOTE | 2025-02-11 17:38 | XR ---
EXAMINATION TYPE: XR chest 2V DATE OF EXAM: 02/11/2025 5:32 PM COMPARISON: 07/03/2024 CLINICAL INDICATION: Male, 49 years old with history of Chest Pain, Chest pain TECHNIQUE: XR chest 2V views of the chest are obtained. FINDINGS: There is no focal air space opacity. No evidence for pneumothorax. No pleural effusion. The cardiac silhouette size is within normal limits. The osseous structures are grossly intact. IMPRESSION: 1. No acute cardiopulmonary process. [facility], , 02/11/2025 5:36 PM
[2025-02-11 17:42] LABS: ALT 14 U/L (4-49); African American GFR (CKD) 56 (>60 ml/min/1.73 sqM); Albumin 2.8 g/dL (3.5-5.0); Anion Gap 7 mmol/L; Blood Urea Nitrogen 25 mg/dL (9-20); Calcium 8.3 mg/dL (8.4-10.2); Carbon Dioxide 24 mmol/L (22-30); Chloride 103 mmol/L (98-107); Glucose 330 mg/dL (74-99); Non-African American GFR(CKD) 49 (>60 ml/min/1.73 sqM); Sodium 134 mmol/L (137-145); Total Bilirubin 0.5 mg/dL (0.2-1.3); Total Protein 5.6 g/dL (6.3-8.2)
--- NOTE | 2025-02-11 17:43 | ED ---
General Adult HPI - General Chief complaint: Recheck/Abnormal Lab/Rx Stated complaint: abn labs Time Seen by Provider: 02/11/25 16:48 Source: patient, RN notes reviewed, old records reviewed Mode of arrival: ambulatory Limitations: no limitations - History of Present Illness Initial comments: 49 yo male presenting for evaluation of abnormal outpatient lab testing. Patient has history of hypertension, diabetes. He states that he had laboratory test drawn at the primary care provider and was told that his blood sugar and cardiac enzyme was elevated. He denies chest pain. Denies dyspnea. Denies cough or fever. Patient does report chest heaviness with exertion. - Related Data Home Medications Medication Instructions Recorded Confirmed Aspirin EC [Ecotrin Low Dose] 81 mg PO DAILY 02/11/25 02/11/25 Benztropine Mesylate [Cogentin] 1 mg PO DAILY 02/11/25 02/11/25 Haloperidol Decanoate [Haldol D] 100 mg IM Q28D 02/11/25 02/11/25 Ibuprofen [Motrin] 600 mg PO BID PRN 02/11/25 02/11/25 Insulin Glargine,Hum.rec.anlog 30 units SQ DAILY 02/11/25 02/11/25 [Lantus Solostar Pen] Insulin Lispro [humaLOG Kwikpen] 2 unit SQ DIRECTED 02/11/25 02/11/25 amLODIPine [Norvasc] 5 mg PO BID 02/11/25 02/11/25 carvediloL [Coreg*] 12.5 mg PO BID 02/11/25 02/11/25 metFORMIN HCL 1,000 mg PO BID 02/11/25 02/11/25 Previous Rx's Medication Instructions Recorded Atorvastatin [Lipitor] 40 mg PO DAILY #90 tab 11/12/23 Losartan [Cozaar] 50 mg PO DAILY #90 tab 12/14/23 Allergies Allergy/AdvReac Type Severity Reaction Status Date / Time grass pollen Allergy Dyspnea/Sne Verified 02/11/25 18:03 ezing blue dye AdvReac Mild Rapid Verified 02/11/25 18:03 Heart Rate Review of Systems ROS Statement: Those systems with pertinent positive or pertinent negative responses have been documented in the HPI. ROS Other: All systems not noted in ROS Statement are negative. Past Medical History Past Medical History: Coronary Artery Disease (CAD), Chest Pain / Angina, Diabetes Mellitus, Hypertension Additional Past Medical History / Comment(s): pt type 1 diabetes Last Myocardial Infarction Date:: 2021 History of Any Multi-Drug Resistant Organisms: None Reported Past Surgical History: Orthopedic Surgery Additional Past Surgical History / Comment(s): Knee surgey 1993 Past Anesthesia/Blood Transfusion Reactions: No Reported Reaction Past Psychological History: Schizophrenia Smoking Status: Current every day smoker, Vaper Past Alcohol Use History: Occasional Past Drug Use History: Marijuana - Past Family History Father Family Medical History: Coronary Artery Disease (CAD) General Exam Limitations: no limitations General appearance: alert, in no apparent distress Head exam: Present: atraumatic, normocephalic Eye exam: Present: normal appearance, PERRL ENT exam: Present: normal exam Neck exam: Present: normal inspection. Absent: tenderness, meningismus Respiratory exam: Present: normal lung sounds bilaterally. Absent: respiratory distress Cardiovascular Exam: Present: regular rate, normal rhythm GI/Abdominal exam: Present: soft. Absent: distended, tenderness, guarding Extremities exam: Present: pedal edema Neurological exam: Present: alert, oriented X3 Psychiatric exam: Present: normal affect, normal mood Skin exam: Present: warm, dry, intact Course Vital Signs 02/11/25 02/11/25 02/11/25 16:36 17:42 19:29 Temperature 98.4 F 98.5 F Pulse Rate 76 71 67 Respiratory 18 20 18 Rate Blood Pressure 149/91 150/86 161/102 O2 Sat by Pulse 99 98 99 Oximetry Medical Decision Making - Medical Decision Making Was pt. sent in by a medical professional or institution (, [facility], REALTIME COURT REPORTER, urgent care, hospital, or jail...) When possible be specific @ -[Sent in from urgent care with abnormal labs Did you speak to anyone other than the patient for history (EMS, parent, family, police, friend...)? What history was obtained from this source @ -No Did you review nursing and triage notes (agree or disagree)? Why? @ -I reviewed and agree with nursing and triage notes Were old charts reviewed (outside hosp., previous admission, EMS record, old EKG, old radiological studies, urgent care reports/EKG's, jail records)? Report findings @ -No old charts were reviewed Differential Weakness: Hypoglycemia, shock, sepsis, hyponatremia, anemia, infection, MD, ETOH, adverse medicine reaction, overdose, stroke, this is not meant to be an all-inclusive list. EKG interpreted by me (3pts min.). @ -Sinus rhythm with ventricular rate of 70, SD interval 136, QRS duration 94, QTc 429 T wave inversion in the precordial leads and inferior leads. T wave inversion is new from prior X-rays interpreted by me (1pt min.). @ -Chest x-ray negative for acute cardiopulmonary findings CT interpreted by me (1pt min.). @ -None done U/S interpreted by me (1pt. min.). @ -None done What testing was considered but not performed or refused? (CT, X-rays, U/S, labs)? Why? @ -None What meds were considered but not given or refused? Why? @ -None Did you discuss the management of the patient with other professionals (professionals i.e. , PA, REALTIME COURT REPORTER, lab, RT, psych nurse, social media content manager, automatic fabric cutter, teacher, personnel training officer, therapeutic case manager)? Give summary @ -No Was smoking cessation discussed for >3mins.? @ -No Was critical care preformed (if so, how long)? @ -No Were there social determinants of health that impacted care today? How? (Home lessness, low income, unemployed, alcoholism, drug addiction, transportation, low edu. Level, literacy, decrease access to med. care, group home, rehab)? @ -No Was there de-escalation of care discussed even if they declined (Discuss DNR or withdrawal of care, Hospice)? DNR status @ -No What co-morbidities impacted this encounter? (DM, HTN, Smoking, COPD, CAD, Cancer, CVA, ARF, Chemo, Hep., AIDS, mental health diagnosis, sleep apnea, morbid obesity)? @ -Hypertension, diabetes, CAD Was patient admitted / discharged? Hospital course, mention meds given and route, prescriptions, significant lab abnormalities, going to OR and other pertinent info. @ -This is a 49-year-old male who was sent in from urgent care with elevated blood sugar and elevated cardiac enzymes. Patient denies chest pain at the time my evaluation but does report that he has had some chest heaviness with exertion. He has a known history of coronary artery disease. Laboratory testing today does reveal an elevated blood sugar, elevated BUN/creatinine and a minimally elevated troponin. Given the elevated cardiac enzyme the patient will be placed in observation for trended enzymes. Case discussed with sound physician group who will admit. Undiagnosed new problem with uncertain prognosis? @ -No Drug Therapy requiring intensive monitoring for toxicity (Heparin, Nitro, Insulin, Cardizem)? @ -No Were any procedures done? @ -No Diagnosis/symptom? @ -[ACS rule out, elevated troponin, chronic kidney disease Acute, or Chronic, or Acute on Chronic? @ -Acute Uncomplicated (without systemic symptoms) or Complicated (systemic symptoms)? @ -[default Side effects of treatment? @ -No Exacerbation, Progression, or Severe Exacerbation? @ -No Poses a threat to life or bodily function? How? (Chest pain, USA, MD, pneumonia, PE, COPD, DKA, ARF, appy, cholecystitis, CVA, Diverticulitis, Homicidal, Suicidal, threat to staff... and all critical care pts) @Yes, ACS - Lab Data Result diagrams: 02/11/25 17:15 02/11/25 17:23 Lab Results 02/11/25 02/11/25 02/11/25 Range/Units 17:04 17:15 17:23 WBC 7.12 (4.50-10.00) 10*3/uL RBC 4.83 (4.40-5.60) 10*6/uL Hgb 14.5 (13.0-17.0) g/dL Hct 41.9 (39.6-50.0) % MCV 86.7 (80.0-97.0) fL MCH 30.0 (27.0-32.0) pg MCHC 34.6 (32.0-37.0) g/dL Plt Count 252 (140-440) 10*3/uL MPV 11.9 (9.5-12.2) fL Immature Gran % (Auto) 0.3 % Neutrophils % 54.2 % Lymphocytes % 29.6 % Monocytes % 10.8 % Eosinophils % 4.4 % Basophils % 0.7 % Immature Gran # 0.02 (0.00-0.04) 10*3/uL Neutrophils # 3.86 (1.80-7.70) 10*3/uL Lymphocytes # 2.11 (0.90-5.00) 10*3/uL Monocytes # 0.77 (0.20-1.00) 10*3/uL Eosinophils # 0.31 (0.04-0.35) 10*3/uL Basophils # 0.05 (0.00-0.10) 10*3/uL PT 11.2 (10.0-12.5) sec INR 1.0 (<1.2) APTT 26.1 (22.0-30.0) sec VBG pH (7.31-7.41) VBG pCO2 (37-51) mmHg VBG HCO3 (24-28) mmol/L Sodium (137-145) mmol/L Potassium (3.5-5.1) mmol/L Chloride (98-107) mmol/L Carbon Dioxide (22-30) mmol/L Anion Gap mmol/L BUN (9-20) mg/dL Creatinine (0.66-1.25) mg/dL Est GFR (CKD-EPI)AfAm (>60 ml/min/1.73 sqM) Est GFR (CKD-EPI)NonAf (>60 ml/min/1.73 sqM) Glucose (74-99) mg/dL POC Glucose (mg/dL) 326 H (70-110) mg/dL POC Glu Roll Builder ID Iván Jose Calcium (8.4-10.2) mg/dL Magnesium (1.6-2.3) mg/dL Total Bilirubin (0.2-1.3) mg/dL AST (17-59) U/L ALT (4-49) U/L Alkaline Phosphatase (38-126) U/L Troponin I (0.000-0.034) ng/mL NT-Pro-B Natriuret Pep pg/mL Total Protein (6.3-8.2) g/dL Albumin (3.5-5.0) g/dL Acetone, Qual (Negative) 02/11/25 02/11/25 02/11/25 Range/Units 17:23 17:23 17:23 WBC (4.50-10.00) 10*3/uL RBC (4.40-5.60) 10*6/uL Hgb (13.0-17.0) g/dL Hct (39.6-50.0) % MCV (80.0-97.0) fL MCH (27.0-32.0) pg MCHC (32.0-37.0) g/dL Plt Count (140-440) 10*3/uL MPV (9.5-12.2) fL Immature Gran % (Auto) % Neutrophils % % Lymphocytes % % Monocytes % % Eosinophils % % Basophils % % Immature Gran # (0.00-0.04) 10*3/uL Neutrophils # (1.80-7.70) 10*3/uL Lymphocytes # (0.90-5.00) 10*3/uL Monocytes # (0.20-1.00) 10*3/uL Eosinophils # (0.04-0.35) 10*3/uL Basophils # (0.00-0.10) 10*3/uL PT (10.0-12.5) sec INR (<1.2) APTT (22.0-30.0) sec VBG pH 7.31 (7.31-7.41) VBG pCO2 51 (37-51) mmHg VBG HCO3 26 (24-28) mmol/L Sodium 134 L (137-145) mmol/L Potassium 3.8 (3.5-5.1) mmol/L Chloride 103 (98-107) mmol/L Carbon Dioxide 24 (22-30) mmol/L Anion Gap 7 mmol/L BUN 25 H (9-20) mg/dL Creatinine 1.64 H (0.66-1.25) mg/dL Est GFR (CKD-EPI)AfAm 56 (>60 ml/min/1.73 sqM) Est GFR (CKD-EPI)NonAf 49 (>60 ml/min/1.73 sqM) Glucose 330 H (74-99) mg/dL POC Glucose (mg/dL) (70-110) mg/dL POC Glu Roll Builder ID Calcium 8.3 L (8.4-10.2) mg/dL Magnesium 1.9 (1.6-2.3) mg/dL Total Bilirubin 0.5 (0.2-1.3) mg/dL AST 21 (17-59) U/L ALT 14 (4-49) U/L Alkaline Phosphatase 69 (38-126) U/L Troponin I 0.040 H* (0.000-0.034) ng/mL NT-Pro-B Natriuret Pep 482 pg/mL Total Protein 5.6 L (6.3-8.2) g/dL Albumin 2.8 L (3.5-5.0) g/dL Acetone, Qual Negative (Negative) Disposition Clinical Impression: Elevated troponin, Chronic kidney disease Disposition: ADMITTED IP TO THIS HOSP Condition: Stable Is patient prescribed a controlled substance at d/c from ED?: No Referrals: Pravin Charles MD [Primary Care Provider] - 1-2 days Time of Disposition: 19:37
[2025-02-11 17:50] LABS: AST 21 U/L (17-59); Alkaline Phosphatase 69 U/L (38-126); Magnesium 1.9 mg/dL (1.6-2.3); NT-Pro-B-Type Natriuretic Pept 482 pg/mL; Potassium 3.8 mmol/L (3.5-5.1)
[2025-02-11 17:57] LABS: VBG PH 7.31 (7.31-7.41)
[2025-02-11] MEDS: ASPIRIN 325 MG TAB PO STA (18:57)
[2025-02-11] MEDS ORDERED: NALOXONE 0.4 MG/ML 1 ML VIAL IV PRN (19:37)
[2025-02-11] MEDS ORDERED: ACETAMINOPHEN TAB 325 MG TAB PO PRN (19:37)
[2025-02-11 19:41] LABS: Appearance,Urine Clear (Clear); Bilirubin,Urine Negative (Negative); Blood,Urine Small (Negative); Color,Urine Colorless; Glucose,Urine (UA) 4+ (Negative); Ketones,Urine Negative (Negative); Leukocyte Esterase,Urine Negative (Negative); Mucus,Urine Rare /hpf; Nitrite,Urine Negative (Negative); Protein,Urine 2+ (Negative); RBC,Urine 3 /hpf (0-5); Specific Gravity,Urine 1.027 (1.001-1.035); Squamous Epithelial Cell,Urine <1 /hpf (0-4); Urobilinogen,Urine <2.0 mg/dL (<2.0); WBC,Urine 2 /hpf (0-5)
[2025-02-11] MEDS ORDERED: DEXTROSE 50% SYRINGE 50 ML IVP PRN ×2 (20:46)
[2025-02-11 20:54] LABS: Glucose,Whole Blood 277 mg/dL (70-110)
[2025-02-11] MEDS ORDERED: INSULIN GLARGINE (LANTUS) 100 UNIT/ML SYR SQ SCH (21:00)
[2025-02-11] MEDS: carvediloL 12.5 MG TAB PO SCH (21:05)
[2025-02-11] MEDS: amLODIPine 5 MG TAB PO SCH (21:05)
[2025-02-11] MEDS: INSULIN LISPRO (HumaLOG) 100 UNIT/ML 10 mL VL SQ SCH (21:05)
[2025-02-11] MEDS: INSULIN GLARGINE (LANTUS) 100 UNIT/ML SYR SQ SCH (21:08)
--- NOTE | 2025-02-12 02:35 | P.HPIM ---
History of Present Illness H&P Date: 02/11/25 Patient is a 49-year-old male with type I diabetes, CAD, CKD, hypertension, schizophrenia, current everyday smoker, here for evaluation of chest pain and elevated cardiac enzymes. Patient was called by his primary care provider and reported that his blood sugar and cardiac enzymes were elevated on his labs and was advised to seek care. 1 or 2 days ago, he had an episode of chest pain and sought care with his PCP. He has been having episodes that last 1-2 minutes aching mid left chest area, some episodes radiate to the back, 5/10, better with rest. At the time of evaluation, patient did not have chest pain. Denied palpitations, shortness of breath, cough, fever, chills, extremity swelling, focal weakness, abdominal pain recent illness. On admission: Vitals: 98.4 Fahrenheit, WI 76, RR 18, BP 149/91, O2 saturation 98% on room air Labs: WBC 7.12, hemoglobin 14.5, sodium 134, potassium 3.8, bicarb 24, BUN 25, creatinine 1.64, glucose 230, calcium 8.3, magnesium 1.9, troponin 0.04, proBNP 482, liver enzymes and ALP were normal levels. Urinalysis showed +2 protein +4 glucose small blood, negative nitrites, negative leukocyte esterase. Acetone serum negative. Imaging: EKG showed sinus rhythm with a rate of 70 bpm, normal axis, inverted T waves in V4 V5 V6, leads to 1 and aVL, nonspecific ST-T changes, QTc 429 MS. Chest x-ray showed no acute cardiopulmonary process. ED documentation reviewed. Aspirin given in the ED. Review of systems: Pertinent positives and negatives as discussed in HPI, a complete review of systems was performed and all other systems are negative. Social history: Tobacco: 2-3 cigarets per day 30 years. Intends to quit Alcohol: history of heavy alcohol intake. Drinks 9-10 beer daily. Quit a year ago Recreational drugs: History of marijuana and cocaine use. Quit THC 1 year ago. Coccain use for only 2 years, cannot remember when he quit but it was a long time ago. Travel: none Physical examination: Vital signs reviewed General: non toxic, no distress, appears at stated age, on room air Derm: no unusual rashes/lesions, warm Head: atraumatic, normocephalic, symmetric Eyes: EOMI, anicteric sclera, pupils equal round reactive to light ENT: Nose and ears atraumatic Neck: No cervical lymphadenopathy, trachea midline, supple Mouth: no lip lesion, mucus membranes moist Cardiovascular: S1S2 reg, no murmur Lungs: CTA bilateral, no rhonchi, no rales, no accessory muscle use Abdominal: soft, nondistended, nontender to palpation, no guarding Ext: muscle strength 5 out of 5 in all 4 extremities grossly, no gross muscle atrophy, no contractures, positive dorsalis pedis pulse bilateral, no edema Neuro: CN II-XI grossly intact, no gross focal neuro deficits Psych: Alert and oriented x 3, appropriate affect and mood Assessment/Plan: 49-year-old male with history of diabetes, CAD, CKD, hypertension here for evaluation of chest pain. The patient is admitted with an anticipated less than 2 midnight stay for evaluation of atypical chest pain Active: #. Atypical Chest pain, r/o ACS -EKG showed sinus rhythm with a rate of 70 bpm, normal axis, inverted T waves in V4 V5 V6, leads to 1 and aVL, nonspecific ST-T changes, QTc 429 MS -troponin 0.04 on admission -Cardiac monitoring -Supplemental oxygen as needed -Heart healthy diet -Trend troponin -EKG as needed -Given aspirin 325 mg once in the ED -Continue with aspirin 81 mg daily -Continue lipitor 40 mg daily -Cardiology consulted #. CKD stage III #. Possible diabetic nephropathy -Consider initiation of SGLT2i if ONOFRE antibodies are negative -Avoid nephrotoxic agents #. Diabetes mellitus with hyperglycemia -Records note he is type I but patient is unsure of his diagnosis -ONOFRE antibody ordered -Hemoglobin A1c 12% in January 2024 -Hold home medications -Glucose Accu-Cheks ACHS -Initiate Insulin sliding scale ACHS. Initiate insulin glargine 30 units nightly -Monitor for hypoglycemia -Patient reported that he doesn't use his Lantus flex pen daily Chronic Conditions: #. Hypertension #. Schizophrenia -Continue with home amlodipine 5 mg p.o. twice daily, carvedilol 12.5 mg p.o. twice daily and benztropine 1 mg p.o. daily F:oral intake N:heart healthy diet A:ambulate as needed DVT ppx: Heparin SQ every 8 hours CODE STATUS: Full Discussed with: Patient Anticipated discharge place: home Doris Umanzor MD PGY-1 Internal Medicine Dictation was produced using [employer] dictation software. please excuse any grammatical, word or spelling errors. I have seen and evaluated the patient today. Discussed with the resident and agree with the residents finding and plan as documented in the resident's note. 49-year-old male who likely has type 2 diabetes however claims he has type 1 diabetes who presented to the hospital with chest pain. I suspect the patient probably has diabetic nephropathy and would benefit from BOSSMAN inhibitor/ARB prior to discharge Past Medical History Past Medical History: Coronary Artery Disease (CAD), Chest Pain / Angina, Diabetes Mellitus, Hypertension Additional Past Medical History / Comment(s): pt type 1 diabetes Last Myocardial Infarction Date:: 2021 History of Any Multi-Drug Resistant Organisms: None Reported Past Surgical History: Orthopedic Surgery Additional Past Surgical History / Comment(s): Knee surgey 1993 Past Anesthesia/Blood Transfusion Reactions: No Reported Reaction Past Psychological History: Schizophrenia Smoking Status: Current every day smoker, Vaper Past Alcohol Use History: Occasional Past Drug Use History: Marijuana - Past Family History Father Family Medical History: Coronary Artery Disease (CAD) Medications and Allergies Home Medications Medication Instructions Recorded Confirmed Type Atorvastatin [Lipitor] 40 mg PO DAILY #90 tab 11/12/23 02/11/25 Rx Losartan [Cozaar] 50 mg PO DAILY #90 tab 12/14/23 02/11/25 Rx Aspirin EC [Ecotrin Low Dose] 81 mg PO DAILY 02/11/25 02/11/25 History Benztropine Mesylate [Cogentin] 1 mg PO DAILY 02/11/25 02/11/25 History Haloperidol Decanoate [Haldol D] 100 mg IM Q28D 02/11/25 02/11/25 History Ibuprofen [Motrin] 600 mg PO BID PRN 02/11/25 02/11/25 History Insulin Glargine,Hum.rec.anlog 30 units SQ DAILY 02/11/25 02/11/25 History [Lantus Solostar Pen] Insulin Lispro [humaLOG Kwikpen] 2 unit SQ DIRECTED 02/11/25 02/11/25 History amLODIPine [Norvasc] 5 mg PO BID 02/11/25 02/11/25 History carvediloL [Coreg*] 12.5 mg PO BID 02/11/25 02/11/25 History metFORMIN HCL 1,000 mg PO BID 02/11/25 02/11/25 History Allergies Allergy/AdvReac Type Severity Reaction Status Date / Time grass pollen Allergy Dyspnea/Sne Verified 02/11/25 18:03 ezing blue dye AdvReac Mild Rapid Verified 02/11/25 18:03 Heart Rate Physical Exam Vitals: Vital Signs Temp Pulse Resp BP Pulse Ox 02/11/25 17:42 71 20 150/86 98 02/11/25 16:36 98.4 F 76 18 149/91 99 Intake and Output 02/11/25 02/11/25 02/11/25 06:59 14:59 22:59 Other: Weight 116.573 kg Results CBC & Chem 7: 02/11/25 17:15 02/11/25 17:23 Labs: Abnormal Lab Results - Last 24 Hours (Table) 02/11/25 02/11/25 02/11/25 Range/Units 17:04 17:23 17:23 Sodium 134 L (137-145) mmol/L BUN 25 H (9-20) mg/dL Creatinine 1.64 H (0.66-1.25) mg/dL Glucose 330 H (74-99) mg/dL POC Glucose (mg/dL) 326 H (70-110) mg/dL Calcium 8.3 L (8.4-10.2) mg/dL Troponin I 0.040 H* (0.000-0.034) ng/mL Total Protein 5.6 L (6.3-8.2) g/dL Albumin 2.8 L (3.5-5.0) g/dL
[2025-02-12 06:11] LABS: Glucose,Whole Blood 121 mg/dL (70-110)
[2025-02-12 07:08] LABS: African American GFR (CKD) 68 (>60 ml/min/1.73 sqM); Anion Gap 5 mmol/L; Blood Urea Nitrogen 19 mg/dL (9-20); Calcium 8.3 mg/dL (8.4-10.2); Carbon Dioxide 26 mmol/L (22-30); Chloride 106 mmol/L (98-107); Glucose 99 mg/dL (74-99); Non-African American GFR(CKD) 59 (>60 ml/min/1.73 sqM); Potassium 3.1 mmol/L (3.5-5.1); Sodium 137 mmol/L (137-145)
[2025-02-12] MEDS ORDERED: LOSARTAN 50 MG TAB PO SCH (09:00)
[2025-02-12] MEDS: POTASSIUM CHLORIDE ER 20 MEQ TAB.ER PO STA (09:31)
[2025-02-12] MEDS: ATORVASTATIN 40 MG TAB PO SCH (09:31)
[2025-02-12] MEDS: ASPIRIN 81 MG PO SCH (09:31)
[2025-02-12] MEDS: HEPARIN SOD,PORK IN 0.45% NACL 25,000 UNIT in 0.45% NACL 1 250ML.BAG IV SCH (09:33)
[2025-02-12] MEDS: HEPARIN SODIUM 1,000 UN/ML (10ML VL) IV ONE (09:34)
[2025-02-12 09:37] LABS: Basophils # (A) 0.06 10*3/uL (0.00-0.10); Basophils % (A) 0.8 %; Eosinophils # (A) 0.43 10*3/uL (0.04-0.35); Eosinophils % (A) 5.6 %; HCT 40.7 % (39.6-50.0); HGB 14.3 g/dL (13.0-17.0); Lymphocytes # (A) 2.83 10*3/uL (0.90-5.00); Lymphocytes % (A) 36.8 %; MCH 30.7 pg (27.0-32.0); MCHC 35.1 g/dL (32.0-37.0); MCV 87.3 fL (80.0-97.0); Mean Platelet Volume 11.6 fL (9.5-12.2); Monocytes # (A) 0.81 10*3/uL (0.20-1.00); Monocytes % (A) 10.5 %; Neutrophils # (A) 3.55 10*3/uL (1.80-7.70); Neutrophils % (A) 46.2 %; Platelet Count 235 10*3/uL (140-440); RBC 4.66 10*6/uL (4.40-5.60); RDW 13.4 % (11.5-14.5); WBC 7.69 10*3/uL (4.50-10.00)
[2025-02-12] MEDS: SODIUM CHLORIDE 0.9% 1,000 ML IV SCH (09:37)
[2025-02-12] MEDS: BENZTROPINE MESYLATE 1 MG TAB PO SCH (09:37)
[2025-02-12 09:50] LABS: INR 0.9 (<1.2); Partial Thromboplastin Time 25.4 sec (22.0-30.0); Prothrombin Time 10.1 sec (10.0-12.5)
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
[2025-02-12 11:23] LABS: Glucose,Whole Blood 248 mg/dL (70-110)
--- NOTE | 2025-02-12 14:19 | P.PN ---
Subjective Progress Note Date: 02/12/25 Hospital Course: Patient is a 49-year-old male with type I diabetes, CAD, CKD, hypertension, schizophrenia, current everyday smoker, here for evaluation of chest pain and elevated cardiac enzymes. Patient was called by his primary care provider and reported that his blood sugar and cardiac enzymes were elevated on his labs and was advised to seek care. 1 or 2 days ago, he had an episode of chest pain and sought care with his PCP. He has been having episodes that last 1-2 minutes aching mid left chest area, some episodes radiate to the back, 5/10, better with rest. At the time of evaluation, patient did not have chest pain. Denied palpitations, shortness of breath, cough, fever, chills, extremity swelling, focal weakness, abdominal pain recent illness. On admission: Vitals: 98.4 Fahrenheit, GA 76, RR 18, BP 149/91, O2 saturation 98% on room air Labs: WBC 7.12, hemoglobin 14.5, sodium 134, potassium 3.8, bicarb 24, BUN 25, creatinine 1.64, glucose 230, calcium 8.3, magnesium 1.9, troponin 0.04, proBNP 482, liver enzymes and ALP were normal levels. Urinalysis showed +2 protein +4 glucose small blood, negative nitrites, negative leukocyte esterase. Acetone serum negative. Imaging: EKG showed sinus rhythm with a rate of 70 bpm, normal axis, inverted T waves in V4 V5 V6, leads to 1 and aVL, nonspecific ST-T changes, QTc 429 MS. Chest x-ray showed no acute cardiopulmonary process. Subjective: Patient seen and examined at bedside. No acute events overnight. Patient is denying any current chest pain. Pertinent positives and negatives as discussed above, a complete review of systems was performed and all other systems are negative. Vitals: Signs Reviewed Physical Exam: General: nontoxic, no distress, appears at stated age Derm: warm, dry, intact Head: atraumatic, normocephalic, symmetric Eyes: EOMI, anicteric sclera Mouth: no lip lesion, mucus membranes moist Cardiovascular: S1 S2 reg, no murmur, rubs, or gallops Lungs: CTA bilateral, no rhonchi, no rales, no accessory muscle use Abdominal: soft, non-tender to palpataion, no appreciable organomegaly Extremities: no gross muscle atrophy, no edema, no contractures Neuro: Alert, Oriented, CNII-XII grossly intact, gait normal Psych: well appearing, appropriate affect Data Received Today: Pertinent Labs: Troponin 0.042 => 0.019, potassium 3.1, creatinine 1.41, A1c 11.4 Imaging: N/A Assessment and Plan: 49-year-old male with history of diabetes, CAD, CKD, hypertension here for evaluation of chest pain. The patient is admitted with an anticipated less than 2 midnight stay for evaluation of atypical chest pain. Active: #. Atypical Chest pain, r/o ACS -EKG showed sinus rhythm with a rate of 70 bpm, normal axis, inverted T waves in V4 V5 V6, leads to 1 and aVL, nonspecific ST-T changes, QTc 429 MS -troponin 0.040, 0.018, 0.015, 0.042, 0.019 Currently on IV heparin drip, monitor APTT -Cardiac telemetry -Supplemental oxygen as needed -Heart healthy diet -Continue with aspirin 81 mg daily -Continue lipitor 40 mg daily -Cardiology note reviewed, plan for Lexiscan stress test on Friday #. Hypokalemia Potassium replacement with 40 mEq p.o. Repeat CMP #. GABBY on CKD stage IIIa #. Possible diabetic nephropathy - Consider initiation of SGLT2i if ONOFRE antibodies are negative - Avoid nephrotoxic agents NS at 75 cc an hour Consider renal ultrasound if kidney function gets worse #. Diabetes mellitus with hyperglycemia -Records note he is type I but patient is unsure of his diagnosis -ONOFRE antibody ordered -Hemoglobin A1c 12% in January 2024 => 11.4% -Hold home medications -Glucose Accu-Cheks ACHS -Initiate Insulin sliding scale ACHS. Initiate insulin glargine 30 units nightly -Monitor for hypoglycemia -Patient reported that he doesn't use his Lantus flex pen daily Chronic Conditions: #. Hypertension: Continue with home amlodipine 5 mg p.o. twice daily, carvedilol 12.5 mg p.o. twice daily, Hydralazine 25 mg PO X 1 now, and then add Hydralazine 25 mg PO TID, Hold off on ARB because of renal function Will continue to monitor BP, patient showing elevated diastolic blood pressure will consider making modifications to medications #. Schizophrenia benztropine 1 mg p.o. daily DVT ppx: IV heparin drip Code status: Full code Anticipated discharge place: Likely home Anticipated discharge time: Pending clinical course Miriam Ontiveros MD PGY-1 IM Dictation was produced using [employer] dictation software. please excuse any gra mmatical, word or spelling errors. I have seen and evaluated the patient today. Discussed with the resident and agree with the residents finding and plan as documented in the resident's note. Changes highlighted in blue font. Objective - Vital Signs Vital signs: Vital Signs Temp 98.1 F 02/12/25 04:00 Pulse 68 02/12/25 04:00 Resp 16 02/12/25 04:00 BP 141/79 02/12/25 04:00 Pulse Ox 98 02/12/25 04:00 FiO2 Intake & Output 02/11/25 02/12/25 02/12/25 18:59 06:59 18:59 Intake Total 480 Balance 480 Weight 116.573 kg 116.4 kg Intake: Oral 480 Other: # Voids 1 - Labs CBC & Chem 7: 02/12/25 09:14 02/12/25 05:30 Labs: Abnormal Lab Results - Last 24 Hours (Table) 02/11/25 02/11/25 02/11/25 Range/Units 17:04 17:23 17:23 Sodium 134 L (137-145) mmol/L Potassium (3.5-5.1) mmol/L BUN 25 H (9-20) mg/dL Creatinine 1.64 H (0.66-1.25) mg/dL Glucose 330 H (74-99) mg/dL POC Glucose (mg/dL) 326 H (70-110) mg/dL Calcium 8.3 L (8.4-10.2) mg/dL Troponin I 0.040 H* (0.000-0.034) ng/mL Total Protein 5.6 L (6.3-8.2) g/dL Albumin 2.8 L (3.5-5.0) g/dL Urine Protein (Negative) Urine Glucose (UA) (Negative) Urine Blood (Negative) Urine Mucus (None) /hpf 02/11/25 02/11/25 02/12/25 Range/Units 19:27 20:52 01:41 Sodium (137-145) mmol/L Potassium (3.5-5.1) mmol/L BUN (9-20) mg/dL Creatinine (0.66-1.25) mg/dL Glucose (74-99) mg/dL POC Glucose (mg/dL) 277 H (70-110) mg/dL Calcium (8.4-10.2) mg/dL Troponin I 0.042 H* (0.000-0.034) ng/mL Total Protein (6.3-8.2) g/dL Albumin (3.5-5.0) g/dL Urine Protein 2+ H (Negative) Urine Glucose (UA) 4+ H (Negative) Urine Blood Small H (Negative) Urine Mucus Rare H (None) /hpf 02/12/25 02/12/25 Range/Units 05:30 06:07 Sodium (137-145) mmol/L Potassium 3.1 L (3.5-5.1) mmol/L BUN (9-20) mg/dL Creatinine 1.41 H (0.66-1.25) mg/dL Glucose (74-99) mg/dL POC Glucose (mg/dL) 121 H (70-110) mg/dL Calcium 8.3 L (8.4-10.2) mg/dL Troponin I (0.000-0.034) ng/mL Total Protein (6.3-8.2) g/dL Albumin (3.5-5.0) g/dL Urine Protein (Negative) Urine Glucose (UA) (Negative) Urine Blood (Negative) Urine Mucus (None) /hpf
[2025-02-12 16:54] LABS: Glucose,Whole Blood 242 mg/dL (70-110)
[2025-02-12] MEDS: HEPARIN SODIUM 1,000 UN/ML (10ML VL) IV PRN (17:00)
[2025-02-12] MEDS: hydrALAZINE HCL 25 MG TAB PO STA (18:07)
[2025-02-12 20:08] LABS: Glucose,Whole Blood 178 mg/dL (70-110)
[2025-02-12] MEDS: hydrALAZINE HCL 25 MG TAB PO SCH (20:18)
[2025-02-13 06:09] LABS: Glucose,Whole Blood 86 mg/dL (70-110)
[2025-02-13 07:46] LABS: Basophils # (A) 0.04 10*3/uL (0.00-0.10); Basophils % (A) 0.5 %; Eosinophils # (A) 0.41 10*3/uL (0.04-0.35); Eosinophils % (A) 5.3 %; HCT 43.7 % (39.6-50.0); HGB 14.9 g/dL (13.0-17.0); Lymphocytes # (A) 2.62 10*3/uL (0.90-5.00); Lymphocytes % (A) 33.9 %; MCH 29.8 pg (27.0-32.0); MCHC 34.1 g/dL (32.0-37.0); MCV 87.4 fL (80.0-97.0); Mean Platelet Volume 11.7 fL (9.5-12.2); Monocytes # (A) 0.67 10*3/uL (0.20-1.00); Monocytes % (A) 8.7 %; Neutrophils # (A) 3.97 10*3/uL (1.80-7.70); Neutrophils % (A) 51.3 %; Platelet Count 248 10*3/uL (140-440); RDW 13.4 % (11.5-14.5); WBC 7.73 10*3/uL (4.50-10.00)
[2025-02-13 07:55] LABS: INR 0.9 (<1.2); Prothrombin Time 9.9 sec (10.0-12.5)
[2025-02-13 08:53] LABS: African American GFR (CKD) 82 (>60 ml/min/1.73 sqM); Anion Gap 2 mmol/L; Blood Urea Nitrogen 16 mg/dL (9-20); Calcium 7.8 mg/dL (8.4-10.2); Carbon Dioxide 24 mmol/L (22-30); Chloride 110 mmol/L (98-107); Glucose 104 mg/dL (74-99); Non-African American GFR(CKD) 71 (>60 ml/min/1.73 sqM); Potassium 3.5 mmol/L (3.5-5.1); Sodium 136 mmol/L (137-145)
--- NOTE | 2025-02-13 09:19 | P.PN ---
Subjective Progress Note Date: 02/13/25 HPI: This gentleman has history of insulin requiring diabetes mellitus with what seems to be mild chronic CKD with some acute exacerbation which has resolved. He has hypertension hyperlipidemia and noncritical CAD based on a cardiac cath from 2022. He came in with chest pain has a equivocal troponin elevation. He is comfortable today he has no further chest pain his blood pressure control is good I have increased hydralazine to 25 mg twice daily. His creatinine has improved with hydration we will continue current medical regimen increase activity discontinue heparin tonight and he will have a Lexiscan stress test tomorrow. He had moderate disease in the PDA branch of RCA which was small and there was some bridging in the mid LAD this was a cardiac cath in August 2023.. PHYSICIAL EXAM: Vitals are stable no JVD S1-S2 are normal in no significant murmurs lungs are clear abdomen and lower EXTR exam is unremarked. IMPRESSION: 1. Chest pain in a patient with noncritical moderate CAD which has resolved. Equivocal troponin elevation.. 2. Type 2 diabetes mellitus with improved creatinine. 3. Tobacco abuse and noncompliance with medications. 4.. 5.. RECOMMENDATIONS: Continue current therapy increase hydralazine to 25 mg twice daily, increase activity Lexiscan stress test tomorrow.. Objective - Vital Signs Vital signs: Vital Signs Temp 98 F 02/12/25 20:00 Pulse 67 02/13/25 04:00 Resp 16 02/13/25 04:00 BP 147/73 02/13/25 04:00 Pulse Ox 98 02/13/25 04:00 FiO2 Intake & Output 02/12/25 02/13/25 02/13/25 18:59 06:59 18:59 Intake Total 296.741 78.758 240 Output Total 500 700 300 Balance -203.259 -621.242 -60 Weight 114.3 kg Intake: Intake, IV Titration 74.741 78.758 Amount Heparin Sod,Pork in 0.45% 74.741 78.758 NaCl 25,000 unit In 0.45 % NaCl 1 250ml.bag @ 8.6 UNITS/KG/HR 10.01 mls/hr IV .Q24H LINDEN Rx#: [id number] Oral 222 240 Output: Urine 500 700 300 - Labs CBC & Chem 7: 02/13/25 07:26 02/13/25 07:26 Labs: Abnormal Lab Results - Last 24 Hours (Table) 02/12/25 02/12/25 02/12/25 Range/Units 05:30 09:14 11:21 Eosinophils # 0.43 H (0.04-0.35) 10*3/uL PT (10.0-12.5) sec APTT (22.0-30.0) sec Sodium (137-145) mmol/L Chloride (98-107) mmol/L Glucose (74-99) mg/dL POC Glucose (mg/dL) 248 H (70-110) mg/dL Hemoglobin A1c 11.4 H (<=6.0) % Calcium (8.4-10.2) mg/dL 02/12/25 02/12/25 02/12/25 Range/Units 15:22 16:52 20:06 Eosinophils # (0.04-0.35) 10*3/uL PT (10.0-12.5) sec APTT 36.7 H (22.0-30.0) sec Sodium (137-145) mmol/L Chloride (98-107) mmol/L Glucose (74-99) mg/dL POC Glucose (mg/dL) 242 H 178 H (70-110) mg/dL Hemoglobin A1c (<=6.0) % Calcium (8.4-10.2) mg/dL 02/12/25 02/13/25 02/13/25 Range/Units 22:37 07:26 07:26 Eosinophils # 0.41 H (0.04-0.35) 10*3/uL PT (10.0-12.5) sec APTT 51.5 H (22.0-30.0) sec Sodium 136 L (137-145) mmol/L Chloride 110 H (98-107) mmol/L Glucose 104 H (74-99) mg/dL POC Glucose (mg/dL) (70-110) mg/dL Hemoglobin A1c (<=6.0) % Calcium 7.8 L (8.4-10.2) mg/dL 02/13/25 Range/Units 07:26 Eosinophils # (0.04-0.35) 10*3/uL PT 9.9 L (10.0-12.5) sec APTT (22.0-30.0) sec Sodium (137-145) mmol/L Chloride (98-107) mmol/L Glucose (74-99) mg/dL POC Glucose (mg/dL) (70-110) mg/dL Hemoglobin A1c (<=6.0) % Calcium (8.4-10.2) mg/dL
[2025-02-13] MEDS: LOSARTAN 25 MG TAB PO SCH (09:57)
[2025-02-13 11:39] LABS: Glucose,Whole Blood 124 mg/dL (70-110)
[2025-02-13 16:38] LABS: Glucose,Whole Blood 272 mg/dL (70-110)
--- NOTE | 2025-02-13 17:42 | P.PN ---
Subjective Progress Note Date: 02/13/25 Patient is a 49-year-old male with diabetes, CAD, CKD, HTN, schizophrenia, and tobacco use currently admitted with non-STEMI. Plan is for stress test in a.m. Patient seen and examined at bedside. Doing well. No recurrent chest pain. We discussed severely elevated blood pressures with a for medication changes. Vital signs reviewed General: Nontoxic, no distress, appears at stated age Cardiovascular: S1S2 reg, no murmur Lungs: CTA bilateral, no rhonchi, no rales, no accessory muscle use Abdominal: Soft, nontender to palpation, no guarding Ext: No gross muscle atrophy, no edema b/l lower extremities, no contractures Neuro: CN II-XI grossly intact, no focal neuro deficits Psych: Alert, oriented, appropriate affect Assessment/Plan: Atypical chest pain Mildly elevated troponin consistent with non-STEMI Accelerated hypertension - Continue heparin drip - Plan is for stress test in a.m. - Aspirin 81 mg daily, Lipitor 40 mg daily - Member with accelerated hypertension yesterday. Received 1 dose of oral hydralazine. Had written for Cozaar 12.5 twice daily today however canceled by cardiology to start on 25 mg of Cozaar daily and subsequently no Cozaar received today. Had been on losartan 50 mg daily at home hydralazine 25 mg p.o. twice daily per cardiology recommendations DM with hyperglycemia - A1c 11.4 - Morning blood sugar was down to 104 likely causing symptomatic hypoglycemia in this patient given A1c of 11.4. Decrease Lantus from 30 units to 25 units at night, continue with sliding scale - Follow Accu-Cheks GABBY, resolved Hypokalemia, resolved Imaging: None new Data Review: CBC and basic metabolic profile reviewed and remarkable for glucose of 104. DVT prophylaxis: On heparin drip Anticipated discharge date: In a.m. Anticipated discharge place: Home This dictation was prepared using [employer] voice recognition software. Though every attempt is made to correct errors during dictation some may still exist. Objective - Vital Signs Vital signs: Vital Signs Temp 98 F 02/13/25 09:41 Pulse 69 02/13/25 17:04 Resp 18 02/13/25 17:04 BP 145/78 02/13/25 17:04 Pulse Ox 98 02/13/25 17:04 FiO2 Intake & Output 02/12/25 02/13/2525 18:59 06:59 18:59 Intake Total 296.741 78.758 480 Output Total 500 700 300 Balance -203.259 -621.242 180 Weight 114.3 kg Intake: Intake, IV Titration 74.741 78.758 Amount Heparin Sod,Pork in 0.45% 74.741 78.758 NaCl 25,000 unit In 0.45 % NaCl 1 250ml.bag @ 8.6 UNITS/KG/HR 10.01 mls/hr IV .Q24H [facility] Rx#: [id number] Oral 222 480 Output: Urine 500 700 300 - Labs CBC & Chem 7: 02/13/25 07:26 02/13/25 07:26 Labs: Abnormal Lab Results - Last 24 Hours (Table) 02/12/25 02/12/25 02/13/25 Range/Units 20:06 22:37 07:26 Eosinophils # 0.41 H (0.04-0.35) 10*3/uL PT (10.0-12.5) sec APTT 51.5 H (22.0-30.0) sec Sodium (137-145) mmol/L Chloride (98-107) mmol/L Glucose (74-99) mg/dL POC Glucose (mg/dL) 178 H (70-110) mg/dL Calcium (8.4-10.2) mg/dL 02/13/25 02/13/25 02/13/25 Range/Units 07:26 07:26 11:37 Eosinophils # (0.04-0.35) 10*3/uL PT 9.9 L (10.0-12.5) sec APTT (22.0-30.0) sec Sodium 136 L (137-145) mmol/L Chloride 110 H (98-107) mmol/L Glucose 104 H (74-99) mg/dL POC Glucose (mg/dL) 124 H (70-110) mg/dL Calcium 7.8 L (8.4-10.2) mg/dL 02/13/25 Range/Units 16:36 Eosinophils # (0.04-0.35) 10*3/uL PT (10.0-12.5) sec APTT (22.0-30.0) sec Sodium (137-145) mmol/L Chloride (98-107) mmol/L Glucose (74-99) mg/dL POC Glucose (mg/dL) 272 H (70-110) mg/dL Calcium (8.4-10.2) mg/dL
[2025-02-13 19:53] LABS: Glucose,Whole Blood 466 mg/dL (70-110)
[2025-02-13] MEDS: INSULIN GLARGINE (LANTUS) 100 UNIT/ML SYR SQ SCH (20:31)
[2025-02-13] MEDS ORDERED: hydrALAZINE HCL 25 MG TAB PO SCH (21:00)
[2025-02-13 22:35] LABS: Glucose,Whole Blood 160 mg/dL (70-110)
[2025-02-14 04:29] VITALS: RESP 14
[2025-02-14 05:45] LABS: Glucose,Whole Blood 122 mg/dL (70-110)
[2025-02-14] MEDS ORDERED: REGADENOSON 0.4 MG/5 ML SYRINGE IV PRN (07:00)
[2025-02-14] MEDS ORDERED: CAFFEINE CITRATE 60 MG/3 ML VIAL IV PRN (07:00)
[2025-02-14] MEDS ORDERED: AMINOPHYLLINE 500 MG/20 ML VIAL IV PRN (07:00)
[2025-02-14] MEDS: LOSARTAN 25 MG TAB PO SCH (08:31)
[2025-02-14 08:41] LABS: African American GFR (CKD) 82 (>60 ml/min/1.73 sqM); Anion Gap 2 mmol/L; Blood Urea Nitrogen 19 mg/dL (9-20); Calcium 8.2 mg/dL (8.4-10.2); Carbon Dioxide 25 mmol/L (22-30); Chloride 109 mmol/L (98-107); Glucose 99 mg/dL (74-99); Magnesium 1.8 mg/dL (1.6-2.3); Non-African American GFR(CKD) 71 (>60 ml/min/1.73 sqM); Potassium 3.5 mmol/L (3.5-5.1); Sodium 136 mmol/L (137-145)
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
[2025-02-14 12:05] VITALS: BP 154/96; PULSE 65; TEMP 97.8
--- NOTE | 2025-02-14 12:16 | NM ---
EXAMINATION TYPE: NM stress lexiscan cardiolite DATE OF EXAM: 02/14/2025 COMPARISON: NONE CLINICAL INDICATION: Male, 49 years old with history of chest pain; TECHNIQUE: After the intravenous administration of 10.8 mCi Tc 99m Sestamibi - Cardiolite resting SP ECT images acquired 107 minutes post injection. The patient received 0.4mg Lexiscan, 24.4 mCi Tc 99m Sestamibi - Stress images obtained [address] injection FINDINGS: Review of stress and rest SPECT images demonstrates small area reversibility involving the cardiac ap ex and anteroseptal wall near the base. Stress-induced ischemia is difficult to exclude. Gated analys is shows normal wall motion with an estimated left ventricular ejection fraction of 49 %. IMPRESSION: small area reversibility involving the cardiac apex and anteroseptal wall near the base. Stress-induc ed ischemia is difficult to exclude. [facility], , 02/14/2025 12:14 PM
[2025-02-14 12:17] LABS: Glucose,Whole Blood 144 mg/dL (70-110)
--- NOTE | 2025-02-14 12:23 | CA ---
Lexiscan Nuclear Stress Test Report Name: Henok Muñiz Exam Date: 02/14/2025 10:49 Exam Location: [place] Stress Ht (in): Wt (lb): BSA: Ordering Phys: Starr Tse NPC Referring Phys: STARR TSE Technologist: RAW Age: 49 Gender: M : 1975 Procedure CPT: Indications: Reflex order-Stress test ICD-10 Codes: Patient History: Chest pressure, Hypertension and history of ASCAD. Medications: Meds past 24 hrs: Pretest Chest Pain: STRESS TEST Lexiscan Protocol Exercise Duration (min:sec): 02:[address] Depressions (mm): Angina Score: Ko Score: Resting HR (bpm): 64 Peak HR (bpm): 79 Resting BP (mmHg): 127 / 87 Peak BP (mmHg): 147 / 81 MPHR: 172 Target HR: 146 % MPHR: 46 METS: 1.0 Total Dose: Peak Dose: Atropine: Double Product: 06837 BP Response: Stress Termination: INFUSION COMPLETE Stress Symptoms: NO SYMPTOMS Stress Summary: ECG ANALYSIS Resting ECG: Stress ECG: CONCLUSIONS At baseline EKG showed normal sinus rhythm, normal axis, T wave inversion lead II and lead III with no significant ST or T wave changes. Patient recieved IV infusion of Lexiscan 0.4mg and at peak infusion EKG showed no change from baseline. Conclusions: 1. Normal EKG response to Lexiscan infusion 2. Nuclear imaging to be reported separately. Dr. Junior Sanchez DO (Electronically Signed) Final Date: 14 February 2025 12:22
[2025-02-14] MEDS ORDERED: ALPRAZolam 0.5 MG TAB PO PRN (12:42)
[2025-02-14] MEDS ORDERED: NITROGLYCERIN SL TABS 0.4 MG TAB SUBLINGUAL PRN (12:42)
[2025-02-14] MEDS ORDERED: ALPRAZolam 0.25 MG TAB PO PRN (12:42)
--- NOTE | 2025-02-14 13:25 | P.PN ---
Subjective Progress Note Date: 02/14/25 Patient seen and examined at bedside. Doing well. No recurrent chest pain. No acute events overnight. Pertinent positives and negatives as discussed above, a complete review of systems was performed and all other systems are negative. Vitals: Signs Reviewed Physical Exam: General: Nontoxic, no distress, appears at stated age Cardiovascular: S1S2 reg, no murmur Lungs: CTA bilateral, no rhonchi, no rales, no accessory muscle use Abdominal: Soft, nontender to palpation, no guarding Ext: No gross muscle atrophy, no edema b/l lower extremities, no contractures Neuro: CN II-XI grossly intact, no focal neuro deficits Psych: Alert, oriented, appropriate affect Data Received Today: Pertinent Labs: CBC and BMP reviewed. Sodium 136, glucose 99 Imaging: N/A Lexiscan stress test: Lexiscan stress test today displaying small area of reversibility involving the cardiac apex and anteroseptal wall near the base. Assessment and Plan: Patient is a 49-year-old male with diabetes, CAD, CKD, HTN, schizophrenia, and tobacco use currently admitted with non-STEMI. #. Atypical chest pain #. Mildly elevated troponin consistent with non-STEMI #. Hypertensive urgency - Continue heparin drip - Aspirin 81 mg daily, Lipitor 40 mg daily - Continue with 25 mg of Cozaar daily and subsequently no Cozaar received today - Cardiac telemetry - Lexiscan stress test today displaying small area of reversibility involving the cardiac apex and anteroseptal wall near the base. - N.p.o. after midnight - Cardiology plans for cardiac catheterization tomorrow #. Insulin-dependent diabetes mellitus with hyperglycemia - A1c 11.4 - Morning blood sugar was down to 104 likely causing symptomatic hypoglycemia in this patient given A1c of 11.4. - Lantus 25 units SQ HS - Follow Accu-Cheks - monitor for hypoglycemia Resolved: GABBY Hypokalemia DVT ppx: heparin subcu Code status: Full code Anticipated discharge place: Pending clinical course Anticipated discharge time: Pending clinical course Miriam Ontiveros MD PGY-1 IM Dictation was produced using Sumerian dictation software. please excuse any grammatical, word or spelling errors. I have seen and evaluated the patient today. Discussed with the resident and agree with the residents finding and plan as documented in the resident's note. Changes highlighted in blue font. Objective - Vital Signs Vital signs: Vital Signs Temp 97.2 F L 02/14/25 04:00 Pulse 66 02/14/25 04:00 Resp 14 02/14/25 04:00 BP 134/78 02/14/25 04:00 Pulse Ox 98 02/14/25 04:00 FiO2 Intake & Output 02/13/25 02/14/25 02/14/25 18:59 06:59 18:59 Intake Total 480 480 Output Total 300 500 Balance 180 -20 Weight 114.2 kg Intake: Oral 480 480 Output: Urine 300 500 Other: Voiding Method Toilet Urinal # Voids 1 - Labs CBC & Chem 7: 02/13/25 07:26 02/14/25 08:03 Labs: Abnormal Lab Results - Last 24 Hours (Table) 02/13/25 02/13/25 02/13/25 Range/Units 07:26 07:26 07:26 Eosinophils # 0.41 H (0.04-0.35) 10*3/uL PT 9.9 L (10.0-12.5) sec Sodium 136 L (137-145) mmol/L Chloride 110 H (98-107) mmol/L Glucose 104 H (74-99) mg/dL POC Glucose (mg/dL) (70-110) mg/dL Calcium 7.8 L (8.4-10.2) mg/dL 02/13/25 02/13/25 02/13/25 Range/Units 11:37 16:36 19:52 Eosinophils # (0.04-0.35) 10*3/uL PT (10.0-12.5) sec Sodium (137-145) mmol/L Chloride (98-107) mmol/L Glucose (74-99) mg/dL POC Glucose (mg/dL) 124 H 272 H 466 H (70-110) mg/dL Calcium (8.4-10.2) mg/dL 02/13/25 02/14/25 Range/Units 22:34 05:44 Eosinophils # (0.04-0.35) 10*3/uL PT (10.0-12.5) sec Sodium (137-145) mmol/L Chloride (98-107) mmol/L Glucose (74-99) mg/dL POC Glucose (mg/dL) 160 H 122 H (70-110) mg/dL Calcium (8.4-10.2) mg/dL
[2025-02-14 14:27] VITALS: BMI 38.2
[2025-02-14] MEDS ORDERED: HEPARIN SODIUM,PORCINE 5,000 UNIT/ML 1 ML VIAL SQ SCH (16:00)
--- NOTE | 2025-02-14 17:04 | P.DS ---
Providers Date of admission: 02/11/25 19:38 Expected date of discharge: 02/14/25 Attending physician: Tomy Anaya Consults: 02/11/25 19:37 Consult Physician Routine Consulting Provider: Michell Parekh Consult Reason/Comments: Elevated trop Do you want consulting provider notified?: Yes Primary care physician: Pravin Charles Hospital Course: Patient left the building to smoke without informing anyone. Will need to go through ER to be readmitted. Plan - Discharge Summary Discharge Rx Participant: No New Discharge Prescriptions: No Action Losartan [Cozaar] 50 mg PO DAILY #90 tab metFORMIN HCL 1,000 mg PO BID Haloperidol Decanoate [Haldol D] 100 mg IM Q28D Benztropine Mesylate [Cogentin] 1 mg PO DAILY Aspirin EC [Ecotrin Low Dose] 81 mg PO DAILY carvediloL [Coreg*] 12.5 mg PO BID Atorvastatin [Lipitor] 40 mg PO DAILY #90 tab Insulin Glargine,Hum.rec.anlog [Lantus Solostar Pen] 30 units SQ DAILY Insulin Lispro [humaLOG Kwikpen] 2 unit SQ TID-W/MEALS amLODIPine [Norvasc] 5 mg PO BID Ibuprofen [Motrin] 600 mg PO BID PRN PRN Reason: Pain Discharge Medication List Atorvastatin [Lipitor] 40 mg PO DAILY #90 tab 11/12/23 [Rx] Losartan [Cozaar] 50 mg PO DAILY #90 tab 12/14/23 [Rx] Aspirin EC [Ecotrin Low Dose] 81 mg PO DAILY 02/11/25 [History] Benztropine Mesylate [Cogentin] 1 mg PO DAILY 02/11/25 [History] Haloperidol Decanoate [Haldol D] 100 mg IM Q28D 02/11/25 [History] Ibuprofen [Motrin] 600 mg PO BID PRN 02/11/25 [History] Insulin Glargine,Hum.rec.anlog [Lantus Solostar Pen] 30 units SQ DAILY 02/11/25 [History] Insulin Lispro [humaLOG Kwikpen] 2 unit SQ TID-W/MEALS 02/11/25 [History] amLODIPine [Norvasc] 5 mg PO BID 02/11/25 [History] carvediloL [Coreg*] 12.5 mg PO BID 02/11/25 [History] metFORMIN HCL 1,000 mg PO BID 02/11/25 [History] Follow up Appointment(s)/Referral(s): Pravin Charles MD [Primary Care Provider] - 1-2 days Discharge Disposition: LEFT AGAINST MEDICAL ADVICE
[2025-02-15] MEDS ORDERED: SODIUM CHLORIDE 0.9% 1,000 ML in EMPTY BAG 1 BAG IV SCH (01:00)
[2025-02-15] MEDS ORDERED: ATORVASTATIN 80 MG TAB PO ONE (05:00)
[2025-02-15] MEDS ORDERED: ASPIRIN 325 MG TAB PO ONE (05:00)
[2025-02-15] MEDS ORDERED: HEPARIN SODIUM,PORCINE (1 ML) 2,500 UNIT in SODIUM CHLORIDE 0.9% 250 ML IRRIGATION PRN (07:00)
[2025-02-15] MEDS ORDERED: HEPARIN SODIUM,PORCINE 10,000 UNIT in SODIUM CHLORIDE 0.9% 1,000 ML IRRIGATION PRN (07:00)
[2025-02-15] MEDS ORDERED: LOSARTAN 50 MG TAB PO SCH (09:00)
[2025-02-15 10:56] LABS: Glucose,Whole Blood 164 mg/dL (70-110)
[2025-02-15 13:48] LABS: Glucose,Whole Blood 267 mg/dL (70-110)
[2025-02-16] MEDS ORDERED: ATORVASTATIN 40 MG TAB PO SCH (09:00)
[2025-02-16] MEDS ORDERED: ASPIRIN 81 MG PO SCH (09:00)
== END 2025-02-14 14:25 | disposition left against medical advice (07) | DRG 190 ==
LOC: EC 16:34 → 3SCARD 19:37 → OBSVTOIN 19:38 → 3SCARD 19:53
PROVIDERS: ADMIT Student in an Organized Health Care Education/Training Program; ATTEND Student in an Organized Health Care Education/Training Program
PROC: 4A02XM4 Measurement of Cardiac Total Activity, External Approach (ICD-10-PCS; principal; 2025-02-14)
PROC: 3E073KZ Introduction of Other Diagnostic Substance into Coronary Artery, Percutaneous Approach (ICD-10-PCS; 2025-02-14)
DX: I21.4 Non-ST elevation (NSTEMI) myocardial infarction (principal); E10.22 Type 1 diabetes mellitus with diabetic chronic kidney disease; E10.649 Type 1 diabetes mellitus with hypoglycemia without coma; Z53.21 Procedure and treatment not carried out due to patient leaving prior to being seen by health care provider; E10.65 Type 1 diabetes mellitus with hyperglycemia; E78.5 Hyperlipidemia, unspecified; E87.6 Hypokalemia; F17.200 Nicotine dependence, unspecified, uncomplicated; F20.9 Schizophrenia, unspecified; I12.9 Hypertensive chronic kidney disease with stage 1 through stage 4 chronic kidney disease, or unspecified chronic kidney disease; I16.0 Hypertensive urgency; I25.10 Atherosclerotic heart disease of native coronary artery without angina pectoris; I25.2 Old myocardial infarction; N17.9 Acute kidney failure, unspecified; N18.31 Chronic kidney disease, stage 3a; Z79.4 Long term (current) use of insulin; Z79.82 Long term (current) use of aspirin; Z79.84 Long term (current) use of oral hypoglycemic drugs; Z79.899 Other long term (current) drug therapy; Z82.49 Family history of ischemic heart disease and other diseases of the circulatory system; Z91.148 Patient's other noncompliance with medication regimen for other reason
CPT/HCPCS: 36415; 71046; 78452; 80048; 80053; 81001; 82009; 82803; 83036; 83519; 83735; 83880; 84484; 85025; 85610; 85730; 93005; 93017; 99285

== ENCOUNTER 2025-02-14 15:08 | Observation (INO) | payer OTHER ==
[2025-02-14 15:34] VITALS: TEMP 98
--- NOTE | 2025-02-14 16:09 | ED ---
Recheck HPI - General Source: patient, RN notes reviewed Mode of arrival: ambulatory Limitations: no limitations <Ariadna Mancia - Last Filed: 02/14/25 16:06> - General Source: patient, RN notes reviewed Mode of arrival: ambulatory Limitations: no limitations <Eleazar Hernandez - Last Filed: 02/14/25 19:39> - General Chief Complaint: Recheck/Abnormal Lab/Rx Stated Complaint: Chest Pain Time Seen by Provider: 02/14/25 15:20 - History of Present Illness Initial Comments: Quick [id number] male presenting to the emergency department for reevaluation. Patient was admitted to the hospital due to chest pain elevated troponin. Patient left the hospital to smoke a cigarette and still has IV in place, states that he was instructed by police officials to report back to emergency department. Currently patient states that he is feeling well and denies chest pain, difficulty breathing, heart palpitations, abdominal pain. (Ariadna Mancia) Patient is a 49-year-old male presenting to the emergency department with needing admission for abnormal stress test. Patient was in the hospital and left have a cigarette. Patient is receptive to receiving a Habitrol patch. Patient is not having chest discomfort at this time. Patient reportedly had abnormal stress test today with plan for heart catheterization tomorrow. (Eleazar Hernandez) - Related Data Home Medications Medication Instructions Recorded Confirmed Aspirin EC [Ecotrin Low Dose] 81 mg PO DAILY 02/11/25 02/14/25 Benztropine Mesylate [Cogentin] 1 mg PO DAILY 02/11/25 02/14/25 Haloperidol Decanoate [Haldol D] 100 mg IM Q28D 02/11/25 02/14/25 Ibuprofen [Motrin] 600 mg PO BID PRN 02/11/25 02/14/25 Insulin Glargine,Hum.rec.anlog 30 units SQ DAILY 02/11/25 02/14/25 [Lantus Solostar Pen] Insulin Lispro [humaLOG Kwikpen] 2 unit SQ TID-W/MEALS 02/11/25 02/14/25 amLODIPine [Norvasc] 5 mg PO BID 02/11/25 02/14/25 carvediloL [Coreg*] 12.5 mg PO BID 02/11/25 02/14/25 metFORMIN HCL 1,000 mg PO BID 02/11/25 02/14/25 Previous Rx's Medication Instructions Recorded Atorvastatin [Lipitor] 40 mg PO DAILY #90 tab 11/12/23 Losartan [Cozaar] 50 mg PO DAILY #90 tab 12/14/23 Allergies Allergy/AdvReac Type Severity Reaction Status Date / Time grass pollen Allergy Dyspnea/Sne Verified 02/14/25 17:10 ezing blue dye AdvReac Mild Rapid Verified 02/14/25 17:10 Heart Rate Review of Systems ROS Other: All systems not noted in ROS Statement are negative. <Ariadna Mancia - Last Filed: 02/14/25 16:06> ROS Other: All systems not noted in ROS Statement are negative. Constitutional: Denies: fever Eyes: Denies: eye pain ENT: Denies: ear pain Cardiovascular: Reports: as per HPI Musculoskeletal: Denies: back pain <Eleazar Hernandez - Last Filed: 02/14/25 19:39> ROS Statement: Those systems with pertinent positive or pertinent negative responses have been documented in the HPI. Past Medical History Past Medical History: Coronary Artery Disease (CAD), Chest Pain / Angina, Diabetes Mellitus, Hypertension Additional Past Medical History / Comment(s): pt type 1 diabetes Last Myocardial Infarction Date:: 2021 History of Any Multi-Drug Resistant Organisms: None Reported Past Surgical History: Orthopedic Surgery Additional Past Surgical History / Comment(s): Knee surgey 1993 Past Anesthesia/Blood Transfusion Reactions: No Reported Reaction Past Psychological History: Schizophrenia Smoking Status: Current every day smoker, Vaper Past Alcohol Use History: Occasional Past Drug Use History: Marijuana - Past Family History Father Family Medical History: Coronary Artery Disease (CAD) <Ariadna Mancia - Last Filed: 02/14/25 16:06> General Exam Limitations: no limitations <Ariadna Mancia - Last Filed: 02/14/25 16:06> Limitations: no limitations General appearance: alert, in no apparent distress Head exam: Present: normocephalic Eye exam: Present: normal appearance Neck exam: Present: normal inspection Respiratory exam: Present: normal lung sounds bilaterally Cardiovascular Exam: Present: regular rate, normal rhythm, normal heart sounds Expanded Peripheral pulses: 2+: Radial (R), Radial (L) GI/Abdominal exam: Present: soft. Absent: tenderness Extremities exam: Present: normal inspection. Absent: pedal edema, calf tenderness Neurological exam: Present: alert Psychiatric exam: Present: normal affect, normal mood Skin exam: Present: normal color <Eleazar Hernandez - Last Filed: 02/14/25 19:39> - General Exam Comments Initial Comments: Visual Physical Exam Vital signs reviewed General: Well-appearing, nontoxic, no acute distress. Head: Normocephalic, atraumatic Eyes: PERRLA, EOMI ENT: Airway patent Chest: Nonlabored breathing Skin: No visual rash, normal skin tone Neuro: Alert and oriented 3 Musculoskeletal: No gross abnormalities (Ariadna Mancia) Course Vital Signs 02/14/25 15:30 Temperature 98 F Pulse Rate 72 Respiratory 18 Rate Blood Pressure 133/87 O2 Sat by Pulse 97 Oximetry Medical Decision Making <Ariadna Mancia - Last Filed: 02/14/25 16:06> - Lab Data Result diagrams: 02/14/25 17:42 <Eleazar Hernandez - Last Filed: 02/14/25 19:39> - Medical Decision Making I completed the quick note portion of this chart signed Ariadna Mancia PA-C (Ariadna Mancia) EKG interpreted by myself shows sinus rhythm with a rate of 65. Normal intervals. Normal axis. Normal QRS. Nonspecific T wave lead III. Was pt. sent in by a medical professional or institution ([facility], PRODUCT MARKETING SPECIALIST, urgent care, hospital, or intermediate...) When possible be specific @ -Patient sent in by Dr. Love Did you speak to anyone other than the patient for history (EMS, parent, family, police, friend...)? What history was obtained from this source @ -Dr. Love provides history including concern for abnormal stress Did you review nursing and triage notes (agree or disagree)? Why? @ -I reviewed and agree with nursing and triage notes Were old charts reviewed (outside hosp., previous admission, EMS record, old EKG, old radiological studies, urgent care reports/EKG's, intermediate records)? Report findings @ -Previous admission reviewed Differential Diagnosis (chest pain, altered mental status, abdominal pain women, abdominal pain men, vaginal bleeding, weakness, fever, dyspnea, syncope, headache, dizziness, GI bleed, back pain, seizure, CVA, palpatations, mental health, musculoskeletal)? @ -Differential Chest Pain: Stable Angina, Unstable Angina, STEMI, NSTEMI Aortic Dissection, Pneumothorax, Musculoskeletal, Esophageal Spasm GERD, Cholecystitis, Pancreatitis, Zoster, this is not meant to be an all-inclusive list. EKG interpreted by me (3pts min.). @ -As above X-rays interpreted by me (1pt min.). @ -None done CT interpreted by me (1pt min.). @ -None done U/S interpreted by me (1pt. min.). @ -None done What testing was considered but not performed or refused? (CT, X-rays, U/S, labs)? Why? @ -None What meds were considered but not given or refused? Why? @ -None Did you discuss the management of the patient with other professionals (pr ofessionals i.e. , PA, PRODUCT MARKETING SPECIALIST, lab, RT, psych nurse, social worker psychiatric, marine tower operator, teacher, first officer and flight instructor, pillowcase folder)? Give summary @ -[facility] physician Dr. Mills group to admit to their service again, he will determine if patient needs heparin. Was smoking cessation discussed for >3mins.? @ -No Was critical care preformed (if so, how long)? @ -No Were there social determinants of health that impacted care today? How? (Homelessness, low income, unemployed, alcoholism, drug addiction, transportati on, low edu. Level, literacy, decrease access to med. care, correction, rehab)? @ -No Was there de-escalation of care discussed even if they declined (Discuss DNR or withdrawal of care, Hospice)? DNR status @ -No What co-morbidities impacted this encounter? (DM, HTN, Smoking, COPD, CAD, Cancer, CVA, ARF, Chemo, Hep., AIDS, mental health diagnosis, sleep apnea, morbid obesity)? @ -None Was patient admitted / discharged? Hospital course, mention meds given and route, prescriptions, significant lab abnormalities, going to OR and other pertinent info. @ -Patient presents after eloping for cigarette. Patient had abnormal stress test and will be admitted with cardiac consult for probable heart cath eterization tomorrow. Patient updated, admission orders written. Undiagnosed new problem with uncertain prognosis? @ -No Drug Therapy requiring intensive monitoring for toxicity (Heparin, Nitro, Ins ulin, Cardizem)? @ -No Were any procedures done? @ -No Diagnosis/symptom? @ -Unstable angina Acute, or Chronic, or Acute on Chronic? @ -Acute Uncomplicated (without systemic symptoms) or Complicated (systemic symptoms)? @ -Default Side effects of treatment? @ -No Exacerbation, Progression, or Severe Exacerbation? @ -No Poses a threat to life or bodily function? How? (Chest pain, [place], [place], pneumonia, PE, COPD, DKA, ARF, appy, cholecystitis, CVA, Diverticulitis, Homicidal, Suicidal, threat to staff... and all critical care pts) @ -Threat to cardiac function (Eleazar Hernandez) - Lab Data Lab Results 02/14/25 02/14/25 02/14/25 Range/Units 17:42 17:42 17:42 WBC 6.32 (4.50-10.00) 10*3/uL RBC 4.83 (4.40-5.60) 10*6/uL Hgb 14.6 (13.0-17.0) g/dL Hct 41.8 (39.6-50.0) % MCV 86.5 (80.0-97.0) fL MCH 30.2 (27.0-32.0) pg MCHC 34.9 (32.0-37.0) g/dL Plt Count 245 (140-440) 10*3/uL MPV 12.1 (9.5-12.2) fL Immature Gran % (Auto) 0.5 % Neutrophils % 57.0 % Lymphocytes % 28.5 % Monocytes % 9.0 % Eosinophils % 4.4 % Basophils % 0.6 % Immature Gran # 0.03 (0.00-0.04) 10*3/uL Neutrophils # 3.60 (1.80-7.70) 10*3/uL Lymphocytes # 1.80 (0.90-5.00) 10*3/uL Monocytes # 0.57 (0.20-1.00) 10*3/uL Eosinophils # 0.28 (0.04-0.35) 10*3/uL Basophils # 0.04 (0.00-0.10) 10*3/uL PT 10.1 (10.0-12.5) sec INR 0.9 (<1.2) APTT 23.8 (22.0-30.0) sec Troponin I <0.012 (0.000-0.034) ng/mL Disposition <Ariadna Mancia - Last Filed: 02/14/25 16:06> Is patient prescribed a controlled substance at d/c from ED?: No Time of Disposition: 19:24 <Eleazar Hernandez - Last Filed: 02/14/25 19:39> Clinical Impression: Unstable angina Disposition: ADMITTED IP TO THIS HOSP Referrals: Pravin Charles MD [Primary Care Provider] - 1-2 days
[2025-02-14 17:50] LABS: Basophils # (A) 0.04 10*3/uL (0.00-0.10); Basophils % (A) 0.6 %; Eosinophils # (A) 0.28 10*3/uL (0.04-0.35); Eosinophils % (A) 4.4 %; HCT 41.8 % (39.6-50.0); HGB 14.6 g/dL (13.0-17.0); Lymphocytes % (A) 28.5 %; MCH 30.2 pg (27.0-32.0); MCHC 34.9 g/dL (32.0-37.0); MCV 86.5 fL (80.0-97.0); Mean Platelet Volume 12.1 fL (9.5-12.2); Monocytes # (A) 0.57 10*3/uL (0.20-1.00); Platelet Count 245 10*3/uL (140-440); RBC 4.83 10*6/uL (4.40-5.60); RDW 13.3 % (11.5-14.5); WBC 6.32 10*3/uL (4.50-10.00)
[2025-02-14 18:06] LABS: INR 0.9 (<1.2); Partial Thromboplastin Time 23.8 sec (22.0-30.0); Prothrombin Time 10.1 sec (10.0-12.5)
[2025-02-14] MEDS ORDERED: NITROGLYCERIN SL TABS 0.4 MG TAB SUBLINGUAL PRN (19:34)
[2025-02-14] MEDS ORDERED: DEXTROSE 50% SYRINGE 50 ML IVP PRN ×2 (20:20)
[2025-02-14 21:38] LABS: Glucose,Whole Blood 147 mg/dL (70-110)
[2025-02-14] MEDS: INSULIN LISPRO (HumaLOG) 100 UNIT/ML 10 mL VL SQ SCH (21:38)
[2025-02-14] MEDS: NICOTINE 14MG/24HR PATCH TRANSDERM STA (21:58)
[2025-02-14] MEDS: carvediloL 12.5 MG TAB PO SCH (21:58)
[2025-02-14] MEDS: amLODIPine 5 MG TAB PO SCH (21:58)
[2025-02-14] MEDS: ASPIRIN 81 MG PO STA (21:58)
[2025-02-14 22:35] LABS: ALT 14 U/L (4-49); AST 32 U/L (17-59); African American GFR (CKD) 77 (>60 ml/min/1.73 sqM); Albumin 3.2 g/dL (3.5-5.0); Alkaline Phosphatase 85 U/L (38-126); Anion Gap 6 mmol/L; Blood Urea Nitrogen 20 mg/dL (9-20); Calcium 8.8 mg/dL (8.4-10.2); Carbon Dioxide 21 mmol/L (22-30); Chloride 108 mmol/L (98-107); Glucose 143 mg/dL (74-99); Magnesium 1.9 mg/dL (1.6-2.3); Non-African American GFR(CKD) 66 (>60 ml/min/1.73 sqM); Sodium 135 mmol/L (137-145); Total Bilirubin 0.8 mg/dL (0.2-1.3); Total Protein 6.5 g/dL (6.3-8.2)
[2025-02-14] MEDS: HEPARIN SODIUM,PORCINE 5,000 UNIT/ML 1 ML VIAL SQ SCH (23:20)
[2025-02-14] MEDS: NITROGLYCERIN OINT 1 INCH/GM PACKET TOPICAL SCH (23:46)
--- NOTE | 2025-02-15 00:54 | P.HPIM ---
History of Present Illness H&P Date: 02/15/25 Patient is a 49-year-old male with type I diabetes, CAD, CKD, hypertension, schizophrenia, current everyday smoker, here for evaluation of chest pain and elevated cardiac enzymes. Patient was called by his primary care provider and reported that his blood sugar and cardiac enzymes were elevated on his labs and was advised to seek care. 1 or 2 days ago, he had an episode of chest pain and sought care with his PCP. He has been having episodes that last 1-2 minutes aching mid left chest area, some episodes radiate to the back, 5/10, better with rest. At the time of evaluation, patient did not have chest pain. Denied palpitations, shortness of breath, cough, fever, chills, extremity swelling, focal weakness, abdominal pain recent illness. He left AMA yesterday to smoke without informing hospital staff and is being readmitted. On admission: Vitals: Temp 98 F, HI 72, RR 18, BP 133/87, O2 saturation 97% on room air Labs: WBC 6.3, hemoglobin 14.6, sodium 135, chloride 108, bicarb 21, creatinine 1.27, glucose 143, calcium 8.8, magnesium 1.9, troponin less than 0.0 12. Liver enzymes were normal limits. Coagulation panel within normal limits.. Imaging: Sinus rhythm with a rate of 65, normal axis, intraventricular delay noted in V1, inverted T waves in leads I, avL, good R wave progression, QTc 430 MS. Revier of Systems: Physical Exam: General: Nontoxic, no distress, appears at stated age Cardiovascular: S1S2 reg, no murmur Lungs: CTA bilateral, no rhonchi, no rales, no accessory muscle use Abdominal: Soft, nontender to palpation, no guarding Ext: No gross muscle atrophy, no edema b/l lower extremities, no contractures Neuro: CN II-XI grossly intact, no focal neuro deficits Psych: Alert, oriented, appropriate affect Assessment and Plan: Patient is a 49-year-old male with diabetes, CAD, CKD, HTN, schizophrenia, and tobacco use currently being readmitted with non-STEMI. #. Atypical chest pain #. Mildly elevated troponin consistent with non-STEMI #. Hypertensive urgency - troponin <0.012. Peak at 0.042 on 02/12 - Aspirin 81 mg daily, Lipitor 40 mg daily - Continue with 25 mg of Cozaar daily and subsequently no Cozaar received today - Cardiac telemetry - Lexiscan stress test done 02/14 displaying small area of reversibility involving the cardiac apex and anteroseptal wall near the base. - N.p.o. after midnight - Cardiology plans for cardiac catheterization today #. Insulin-dependent diabetes mellitus with hyperglycemia - A1c 11.4 - Morning blood sugar was down to 104 likely causing symptomatic hypoglycemia in this patient given A1c of 11.4. - Lantus 25 units SQ HS - Follow Accu-Cheks - monitor for hypoglycemia Resolved: GABBY Hypokalemia DVT ppx: heparin subcu Code status: Full code Anticipated discharge place: Pending clinical course Anticipated discharge time: Pending clinical course Doris Umanzor MD PGY-1 IM Dictation was produced using [employer] dictation software. please excuse any grammatical, word or spelling errors. I have seen and evaluated the patient today. I Discussed the case with the resident and agree with the resident's findings I edited the assessment and plan as necessary as documented in the resident's note. Past Medical History Past Medical History: Coronary Artery Disease (CAD), Chest Pain / Angina, Diabetes Mellitus, Hypertension Additional Past Medical History / Comment(s): pt type 1 diabetes Last Myocardial Infarction Date:: 2021 History of Any Multi-Drug Resistant Organisms: None Reported Past Surgical History: Orthopedic Surgery Additional Past Surgical History / Comment(s): Knee surgey 1993 Past Anesthesia/Blood Transfusion Reactions: No Reported Reaction Past Psychological History: Schizophrenia Smoking Status: Current every day smoker, Vaper Past Alcohol Use History: Occasional Past Drug Use History: Marijuana - Past Family History Father Family Medical History: Coronary Artery Disease (CAD) Medications and Allergies Home Medications Medication Instructions Recorded Confirmed Type Atorvastatin [Lipitor] 40 mg PO DAILY #90 tab 11/12/23 02/14/25 Rx Losartan [Cozaar] 50 mg PO DAILY #90 tab 12/14/23 02/14/25 Rx Aspirin EC [Ecotrin Low Dose] 81 mg PO DAILY 02/11/25 02/14/25 History Benztropine Mesylate [Cogentin] 1 mg PO DAILY 02/11/25 02/14/25 History Haloperidol Decanoate [Haldol D] 100 mg IM Q28D 02/11/25 02/14/25 History Ibuprofen [Motrin] 600 mg PO BID PRN 02/11/25 02/14/25 History Insulin Glargine,Hum.rec.anlog 30 units SQ DAILY 02/11/25 02/14/25 History [Lantus Solostar Pen] Insulin Lispro [humaLOG Kwikpen] 2 unit SQ TID-W/MEALS 02/11/25 02/14/25 History amLODIPine [Norvasc] 5 mg PO BID 02/11/25 02/14/25 History carvediloL [Coreg*] 12.5 mg PO BID 02/11/25 02/14/25 History metFORMIN HCL 1,000 mg PO BID 02/11/25 02/14/25 History Allergies Allergy/AdvReac Type Severity Reaction Status Date / Time grass pollen Allergy Dyspnea/Sne Verified 02/14/25 17:10 ezing blue dye AdvReac Mild Rapid Verified 02/14/25 17:10 Heart Rate Physical Exam Vitals: Vital Signs Temp Pulse Resp BP Pulse Ox 02/14/25 22:10 66 18 188/109 99 02/14/25 15:30 98 F 72 18 133/87 97 Intake and Output 02/14/25 02/14/25 02/15/25 14:59 22:59 06:59 Other: Weight 114.759 kg Results CBC & Chem 7: 02/14/25 17:42 02/14/25 20:04 Labs: Abnormal Lab Results - Last 24 Hours (Table) 02/14/25 02/14/25 Range/Units 20:04 21:37 Sodium 135 L (137-145) mmol/L Chloride 108 H (98-107) mmol/L Carbon Dioxide 21 L (22-30) mmol/L Creatinine 1.27 H (0.66-1.25) mg/dL Glucose 143 H (74-99) mg/dL POC Glucose (mg/dL) 147 H (70-110) mg/dL Albumin 3.2 L (3.5-5.0) g/dL
[2025-02-15 07:16] LABS: Glucose,Whole Blood 202 mg/dL (70-110)
[2025-02-15] MEDS ORDERED: ALPRAZolam 0.25 MG TAB PO PRN (08:26)
[2025-02-15] MEDS ORDERED: ALPRAZolam 0.5 MG TAB PO PRN (08:26)
[2025-02-15] MEDS ORDERED: NITROGLYCERIN SL TABS 0.4 MG TAB SUBLINGUAL PRN (08:26)
[2025-02-15] MEDS: LOSARTAN 50 MG TAB PO SCH (08:31)
[2025-02-15] MEDS: ASPIRIN 81 MG PO SCH (08:31)
[2025-02-15] MEDS: ATORVASTATIN 40 MG TAB PO SCH (08:31)
[2025-02-15 08:45] LABS: African American GFR (CKD) 74 (>60 ml/min/1.73 sqM); Anion Gap 1 mmol/L; Blood Urea Nitrogen 17 mg/dL (9-20); Calcium 8.2 mg/dL (8.4-10.2); Carbon Dioxide 29 mmol/L (22-30); Chloride 107 mmol/L (98-107); Glucose 168 mg/dL (74-99); Magnesium 1.8 mg/dL (1.6-2.3); Non-African American GFR(CKD) 64 (>60 ml/min/1.73 sqM); Potassium 3.6 mmol/L (3.5-5.1); Sodium 137 mmol/L (137-145)
[2025-02-15] MEDS ORDERED: ASPIRIN 325 MG TAB PO SCH (09:00)
[2025-02-15] MEDS: ASPIRIN 81 MG PO ONE (09:26)
[2025-02-15] MEDS: IV FLUID CONTINUATION 1,000 ML IV ONE (09:29)
[2025-02-15] MEDS: HEPARIN SODIUM (1,000 UNIT/ML) 1,000 UNIT in SODIUM CHLORIDE 0.9% 1,000 ML IRRIGATION ONE (09:29)
[2025-02-15] MEDS: HEPARIN SODIUM,PORCINE (1 ML) 2,500 UNIT in SODIUM CHLORIDE 0.9% 250 ML IRRIGATION ONE (09:30)
[2025-02-15] MEDS: fentaNYL (PF) 50 MCG/ML 2 ML AMP IVP ONE (10:04)
[2025-02-15] MEDS: LIDOCAINE 1% INJ 10MG/ML (20 ML MDV) SQ ONE (10:06)
[2025-02-15] MEDS: MIDAZOLAM 2 MG/2 ML VIAL IVP ONE (10:07)
[2025-02-15] MEDS: IOPAMIDOL-370 100ML BTL INJ ONE (10:20)
[2025-02-15 10:30] LABS: Chol/HDL Ratio 5.98 Ratio; LDL Cholesterol,Calculated 213.8 mg/dL (0.0-131.0)
[2025-02-15] MEDS ORDERED: RX INFO: IV CONTRAST WAS GIVEN 1 EACH MISC MISCELLANE PRN (10:31)
--- NOTE | 2025-02-15 10:54 | P.PN ---
Subjective Progress Note Date: 02/15/25 Hospital Course: Patient is a 49-year-old male with type I diabetes, CAD, CKD, hypertension, schizophrenia, current everyday smoker, here for evaluation of chest pain and elevated cardiac enzymes. Patient was called by his primary care provider and reported that his blood sugar and cardiac enzymes were elevated on his labs and was advised to seek care. 1 or 2 days ago, he had an episode of chest pain and sought care with his PCP. He has been having episodes that last 1-2 minutes aching mid left chest area, some episodes radiate to the back, 5/10, better with rest. At the time of evaluation, patient did not have chest pain. Denied palpitations, shortness of breath, cough, fever, chills, extremity swelling, focal weakness, abdominal pain recent illness. He left AMA yesterday to smoke without informing hospital staff and is being readmitted. On admission: Vitals: Temp 98 F, UT 72, RR 18, BP 133/87, O2 saturation 97% on room air Labs: WBC 6.3, hemoglobin 14.6, sodium 135, chloride 108, bicarb 21, creatinine 1.27, glucose 143, calcium 8.8, magnesium 1.9, troponin less than 0.0 12. Liver enzymes were normal limits. Coagulation panel within normal limits.. Imaging: Sinus rhythm with a rate of 65, normal axis, intraventricular delay noted in V1, inverted T waves in leads I, avL, good R wave progression, QTc 430 MS. Subjective: Patient seen and examined at bedside. No acute events overnight. Denies any chest pain. Pertinent positives and negatives as discussed above, a complete review of systems was performed and all other systems are negative. Vitals: Signs Reviewed Physical Exam: General: Nontoxic, no distress, appears at stated age Cardiovascular: S1S2 reg, no murmur Lungs: CTA bilateral, no rhonchi, no rales, no accessory muscle use Abdominal: Soft, nontender to palpation, no guarding Ext: No gross muscle atrophy, no edema b/l lower extremities, no contractures Neuro: CN II-XI grossly intact, no focal neuro deficits Psych: Alert, oriented, appropriate affect Data Received Today: Pertinent Labs: NA 137, BUN 17, creatinine 1.13, glucose 168 Imaging: N/A Assessment and Plan: Patient is a 49-year-old male with diabetes, CAD, CKD, HTN, schizophrenia, and tobacco use currently being readmitted with non-STEMI. #. Atypical chest pain with recent admission for NSTEMI #. Mildly elevated troponin consistent with non-STEMI #. Hypertensive urgency - troponin <0.012. Peak at 0.042 on 02/12 - Aspirin 81 mg daily, Lipitor 40 mg daily - Continue with 25 mg of Cozaar daily and subsequently no Cozaar received today - Cardiac telemetry - Lexiscan stress test done 02/14 displaying small area of reversibility involving the cardiac apex and anteroseptal wall near the base. Lipid panel: Cholesterol 281, LDL 213.8, HDL 47, triglyceride 101 - NPO after midnight - Cardiology plans for cardiac catheterization today #. Insulin-dependent diabetes mellitus with hyperglycemia - A1c 11.4 - Morning blood sugar was down to 104 likely causing symptomatic hypoglycemia in this patient given A1c of 11.4. - Lantus 25 units SQ HS - Follow Accu-Cheks - monitor for hypoglycemia #. Diabetes mellitus Insulin SQ sliding scale Hypoglycemia precaution Accu-Cheks ACHS Chronic conditions: #. Hypertension: Amlodipine 5 mg PO twice daily, losartan 50 mg p.o. daily #. Nicotine dependence: Nicotine patch ordered Resolved: GABBY Hypokalemia DVT ppx: 5000 unit heparin SQ every 8 hours Code status: Full code Anticipated discharge place: Pending clinical course Anticipated discharge time: Pending clinical course Miriam Ontiveros MD PGY-1 IM Dictation was produced using [employer] dictation software. please excuse any grammatical, word or spelling errors. I have seen and evaluated the patient today. Discussed with the resident and agree with the residents finding and plan as documented in the resident's note. Changes highlighted in blue font. This is a progress note, no charges associated with this note Objective - Vital Signs Vital signs: Vital Signs Temp 98 F 02/14/25 15:30 Pulse 78 02/15/25 07:27 Resp 18 02/15/25 07:27 BP 144/79 02/15/25 07:27 Pulse Ox 96 02/15/25 07:27 FiO2 Intake & Output 02/14/25 02/15/25 02/15/25 18:59 06:59 18:59 Weight 114.759 kg - Labs CBC & Chem 7: 02/14/25 17:42 02/15/25 08:04 Labs: Abnormal Lab Results - Last 24 Hours (Table) 02/14/25 02/14/25 02/15/25 Range/Units 20:04 21:37 07:14 Sodium 135 L (137-145) mmol/L Chloride 108 H (98-107) mmol/L Carbon Dioxide 21 L (22-30) mmol/L Creatinine 1.27 H (0.66-1.25) mg/dL Glucose 143 H (74-99) mg/dL POC Glucose (mg/dL) 147 H 202 H (70-110) mg/dL Albumin 3.2 L (3.5-5.0) g/dL
[2025-02-15 12:52] VITALS: RESP 16
[2025-02-15] MEDS: SODIUM CHLORIDE 0.9% 1,000 ML IV SCH (13:47)
[2025-02-15] MEDS: LOSARTAN 50 MG TAB PO STA (13:47)
[2025-02-15] MEDS: SODIUM CHLORIDE 0.9% 1,000 ML in EMPTY BAG 1 BAG IV SCH (13:48)
[2025-02-15] MEDS: ASPIRIN 325 MG TAB PO STA (13:48)
[2025-02-15] MEDS: ATORVASTATIN 80 MG TAB PO STA (13:48)
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
--- NOTE | 2025-02-15 15:17 | P.DS ---
Providers Date of admission: 02/14/25 19:37 Discharge Diagnosis: Atypical chest pain with recent admission for NSTEMI Mildly elevated troponin consistent with non-STEMI Hypertensive urgency Insulin-dependent diabetes mellitus with hyperglycemia Diabetes mellitus Hypertension Nicotine dependence Hospital Course: Patient is a 49-year-old male with type I diabetes, CAD, CKD, hypertension, schizophrenia, current everyday smoker, here for evaluation of chest pain and elevated cardiac enzymes. Patient was called by his primary care provider and reported that his blood sugar and cardiac enzymes were elevated on his labs and was advised to seek care. 1 or 2 days ago, he had an episode of chest pain and sought care with his PCP. He has been having episodes that last 1-2 minutes aching mid left chest area, some episodes radiate to the back, 5/10, better with rest. At the time of evaluation, patient did not have chest pain. Denied palpitations, shortness of breath, cough, fever, chills, extremity swelling, focal weakness, abdominal pain recent illness. He left AMA yesterday to smoke without informing hospital staff and is being readmitted. On admission: Vitals: Temp 98 F, MA 72, RR 18, BP 133/87, O2 saturation 97% on room air Labs: WBC 6.3, hemoglobin 14.6, sodium 135, chloride 108, bicarb 21, creatinine 1.27, glucose 143, calcium 8.8, magnesium 1.9, troponin less than 0.0 12. Liver enzymes were normal limits. Coagulation panel within normal limits.. Imaging: EKG independently interpreted displaying sinus rhythm with a rate of 65, normal axis, intraventricular delay noted in V1, inverted T waves in leads I, avL, good R wave progression, QTc 430 MS. CXR independent interpreted display no acute cardiopulmonary process Patient admitted for further workup on atypical chest pain. Lexiscan nuclear stress test displayed small area of reversibility involving the cardiac apex and anterior septal wall near the base. Requiring to undergo follow-up cardiac catheterization. His cardiac catheterization was unremarkable. He will be discharged with an increase to his antihypertensive medication. He is hemodynamically stable and cleared by cardiology. He was instructed to follow- up with cardiology and his PCP. He can be discharged home today. Patient seen and examined at bedside. Vital signs reviewed and stable. Physical examination: General: Nontoxic, no distress, appears at stated age Cardiovascular: S1S2 reg, no murmur Lungs: CTA bilateral, no rhonchi, no rales, no accessory muscle use Abdominal: Soft, nontender to palpation, no guarding Ext: No gross muscle atrophy, no edema b/l lower extremities, no contractures Neuro: CN II-XI grossly intact, no focal neuro deficits Psych: Alert, oriented, appropriate affect A total of greater than 30 minutes of time were spent preparing this complex discharge summary. Patient was discharge on February 15, 2025 at 2:57 PM. Miriam Ontiveros MD PGY-1 IM Dictation was produced using [employer] dictation software. please excuse any grammatical, word or spelling errors. I have seen and evaluated the patient today. Discussed with the resident and agree with the residents finding and plan as documented in the resident's note. Changes highlighted in blue font. Expected date of discharge: 02/15/25 Attending physician: Tomy Anaya Consults: 02/14/25 19:36 Consult Physician Urgent Consulting Provider: David Amador Consult Reason/Comments: ua, cath tomorrow Do you want consulting provider notified?: Yes Primary care physician: Pravin Charles Plan - Discharge Summary Discharge Rx Participant: Yes New Discharge Prescriptions: New Losartan [Cozaar] 100 mg PO DAILY #60 tab Continue metFORMIN HCL 1,000 mg PO BID Haloperidol Decanoate [Haldol D] 100 mg IM Q28D Benztropine Mesylate [Cogentin] 1 mg PO DAILY Aspirin EC [Ecotrin Low Dose] 81 mg PO DAILY carvediloL [Coreg*] 12.5 mg PO BID Atorvastatin [Lipitor] 40 mg PO DAILY #90 tab Insulin Glargine,Hum.rec.anlog [Lantus Solostar Pen] 30 units SQ DAILY Insulin Lispro [humaLOG Kwikpen] 2 unit SQ TID-W/MEALS amLODIPine [Norvasc] 5 mg PO BID Ibuprofen [Motrin] 600 mg PO BID PRN PRN Reason: Pain Discontinued Losartan [Cozaar] 50 mg PO DAILY #90 tab Discharge Medication List Atorvastatin [Lipitor] 40 mg PO DAILY #90 tab 11/12/23 [Rx] Aspirin EC [Ecotrin Low Dose] 81 mg PO DAILY 02/11/25 [History] Benztropine Mesylate [Cogentin] 1 mg PO DAILY 02/11/25 [History] Haloperidol Decanoate [Haldol D] 100 mg IM Q28D 02/11/25 [History] Ibuprofen [Motrin] 600 mg PO BID PRN 02/11/25 [History] Insulin Glargine,Hum.rec.anlog [Lantus Solostar Pen] 30 units SQ DAILY 02/11/25 [History] Insulin Lispro [humaLOG Kwikpen] 2 unit SQ TID-W/MEALS 02/11/25 [History] amLODIPine [Norvasc] 5 mg PO BID 02/11/25 [History] carvediloL [Coreg*] 12.5 mg PO BID 02/11/25 [History] metFORMIN HCL 1,000 mg PO BID 02/11/25 [History] Losartan [Cozaar] 100 mg PO DAILY #60 tab 02/15/25 [Rx] Follow up Appointment(s)/Referral(s): Pravin Charles MD [Primary Care Provider] - 1-2 days Juice Bangura MD [STAFF PHYSICIAN] - 02/18/25 3:00 pm Patient Instructions/Handouts: Chest Pain (DC) Activity/Diet/Wound Care/Special Instructions: Please follow up with PCP and cardiology. Discharge Disposition: HOME SELF-CARE
[2025-02-15 16:53] VITALS: BP 137/88; PULSE 65
--- NOTE | 2025-02-15 21:12 | CC ---
CARDIAC CATHETERIZATION REPORT INDICATION: Chest pain with abnormal stress test. PROCEDURE NOTE: After obtaining informed consent, left heart catheterization and coronary angiogram were performed via the right femoral artery using standard Megha catheters. The patient tolerated the procedure well without any obvious immediate complications. A femoral angiogram was performed, and Angio-Seal will be deployed for hemostasis. Total sedation time was 18 minutes. FINDINGS: 1. Hemodynamics: Left ventricular end-diastolic pressure is 20 mm. There is no significant gradient across the aortic valve. 2. Left ventriculogram: Left ventriculogram is not performed. 3. Angiographic data: a.Right coronary artery: Right coronary artery is a large dominant vessel that shows a 30% to 40% stenosis involving the PDA. b.Left main coronary artery is a normal-sized vessel and is free of significant disease, divides into left anterior descending coronary artery and circumflex coronary artery. c.LAD and its branches, circumflex coronary artery and its branches are free of significant stenosis. CONCLUSION: Mild nonobstructive disease involving PDA. PLAN: The patient's management is going to be in the form of risk factor modification and medical therapy. His stress test is a false-positive stress test. MMODL / IJN: [id number] /
[2025-02-16] MEDS ORDERED: HEPARIN SODIUM,PORCINE 10,000 UNIT in SODIUM CHLORIDE 0.9% 1,000 ML IRRIGATION PRN (07:00)
[2025-02-16] MEDS ORDERED: HEPARIN SODIUM,PORCINE (1 ML) 2,500 UNIT in SODIUM CHLORIDE 0.9% 250 ML IRRIGATION PRN (07:00)
[2025-02-16] MEDS ORDERED: LOSARTAN 50 MG TAB PO SCH (09:00)
== END 2025-02-15 17:18 | disposition home or self-care (01) ==
LOC: EC 15:08 → 6NMEDSUR 19:37
PROVIDERS: ADMIT Student in an Organized Health Care Education/Training Program; ATTEND Student in an Organized Health Care Education/Training Program
DX: I21.4 Non-ST elevation (NSTEMI) myocardial infarction (principal); I16.0 Hypertensive urgency; E87.6 Hypokalemia; E10.65 Type 1 diabetes mellitus with hyperglycemia; N17.9 Acute kidney failure, unspecified; I12.9 Hypertensive chronic kidney disease with stage 1 through stage 4 chronic kidney disease, or unspecified chronic kidney disease; N18.9 Chronic kidney disease, unspecified; E10.22 Type 1 diabetes mellitus with diabetic chronic kidney disease; I25.10 Atherosclerotic heart disease of native coronary artery without angina pectoris; F20.9 Schizophrenia, unspecified; Z91.148 Patient's other noncompliance with medication regimen for other reason; F17.290 Nicotine dependence, other tobacco product, uncomplicated; F17.210 Nicotine dependence, cigarettes, uncomplicated; Z79.82 Long term (current) use of aspirin; Z79.4 Long term (current) use of insulin; Z79.84 Long term (current) use of oral hypoglycemic drugs; Z79.899 Other long term (current) drug therapy; Z91.048 Other nonmedicinal substance allergy status
CPT/HCPCS: 96372; 99285; 36415; 93005; 93458; 80061; 80053; 80048; 84443; 83735 ×2; 84484; 85025; 85610; 85730; 83036; G0378 ×2; C1760; C1894; C1769; S4990; J2250; J1644 ×2; J2003; J3010; Q9967

== ENCOUNTER 2025-04-15 11:33 | Emergency (ER) | payer OTHER ==
[2025-04-15 11:45] LABS: Glucose,Whole Blood 348 mg/dL (70-110)
[2025-04-15 11:46] VITALS: BP 182/107; PULSE 82; RESP 20; TEMP 98.2
--- NOTE | 2025-04-15 12:44 | ED ---
Recheck HPI - General Chief Complaint: Recheck/Abnormal Lab/Rx Stated Complaint: Medication Refill Time Seen by Provider: 04/15/25 12:35 Source: patient, RN notes reviewed Mode of arrival: ambulatory Limitations: no limitations - History of Present Illness Initial Comments: This is a 50-year-old male who presents to the emergency department for medication refills. Patient states that he has been out of all of his medication for 1.5 days. He is unsure what medication this is, but states that it is the same as when he was here last. He is concerned about his blood pressure and blood sugar getting elevated, however he otherwise denies any concerns or complaints. MD Complaint: medication refill request - Related Data Home Medications Medication Instructions Recorded Confirmed Haloperidol Decanoate [Haldol D] 100 mg IM Q28D 02/11/25 02/14/25 Previous Rx's Medication Instructions Recorded Atorvastatin [Lipitor] 40 mg PO DAILY #90 tab 11/12/23 Aspirin EC [Ecotrin Low Dose] 81 mg PO DAILY #30 tab 04/15/25 Benztropine Mesylate [Cogentin] 1 mg PO DAILY #30 tab 04/15/25 Ibuprofen [Motrin] 600 mg PO BID PRN #60 tab 04/15/25 Insulin Glargine,Hum.rec.anlog 30 units SQ DAILY #5 each 04/15/25 [Lantus Solostar Pen] Insulin Lispro [humaLOG Kwikpen] 2 unit SQ TID-W/MEALS #5 each 04/15/25 Losartan [Cozaar] 100 mg PO DAILY #60 tab 04/15/25 amLODIPine [Norvasc] 5 mg PO BID #60 tab 04/15/25 carvediloL [Coreg*] 12.5 mg PO BID #60 tab 04/15/25 metFORMIN HCL 1,000 mg PO BID #60 tab 04/15/25 Allergies Allergy/AdvReac Type Severity Reaction Status Date / Time grass pollen Allergy Dyspnea/Sne Verified 04/15/25 11:46 ezing blue dye AdvReac Mild Rapid Verified 04/15/25 11:46 Heart Rate Review of Systems ROS Statement: Those systems with pertinent positive or pertinent negative responses have been documented in the HPI. ROS Other: All systems not noted in ROS Statement are negative. Past Medical History Past Medical History: Coronary Artery Disease (CAD), Chest Pain / Angina, Diabetes Mellitus, Hypertension Additional Past Medical History / Comment(s): pt type 1 diabetes Last Myocardial Infarction Date:: 2021 History of Any Multi-Drug Resistant Organisms: None Reported Past Surgical History: Orthopedic Surgery Additional Past Surgical History / Comment(s): Knee surgey 1993 Past Anesthesia/Blood Transfusion Reactions: No Reported Reaction Past Psychological History: Schizophrenia Smoking Status: Current every day smoker, Vaper Past Alcohol Use History: Occasional Past Drug Use History: Marijuana - Past Family History Father Family Medical History: Coronary Artery Disease (CAD) General Exam Limitations: no limitations General appearance: alert, in no apparent distress Head exam: Present: atraumatic, normocephalic, normal inspection Respiratory exam: Present: normal lung sounds bilaterally. Absent: respiratory distress, wheezes, rales, rhonchi, stridor Cardiovascular Exam: Present: regular rate, normal rhythm Neurological exam: Present: alert, oriented X3, CN II-XII intact Psychiatric exam: Present: normal affect, normal mood Skin exam: Present: warm, dry, intact, normal color. Absent: rash Course Vital Signs 04/15/25 11:42 Temperature 98.2 F Pulse Rate 82 Respiratory 20 Rate Blood Pressure 182/107 O2 Sat by Pulse 98 Oximetry Medical Decision Making - Medical Decision Making This is a 50-year-old male who presents to the emergency department for medication refills. Was pt. sent in by a medical professional or institution? @ -No Did you speak to anyone other than the patient for history? @ -No Did you review nursing and triage notes? @ -Yes, and I agree, it is accurate with regards to the patient's symptoms. Were old charts reviewed? @ -No Differential Diagnosis? @ -Medication refill, laboratory testing requested, hyperglycemia, this is not meant to be an all-inclusive list. EKG interpreted by me (3pts min.)? @ -Not obtained X-rays interpreted by me (1pt min.)? @ -Not obtained CT interpreted by me (1pt min.)? @ -Not obtained U/S interpreted by me (1pt. min.)? @ -Not obtained What testing was considered but not performed? (CT, X-rays, U/S, labs)? Why? @ -None What meds were considered but not given? Why? @ -None Did you discuss the management of the patient with other professionals? @ -No Did you reconcile home meds? @ -No Was smoking cessation discussed for >3mins.? @ -No Was critical care preformed (if so, how long)? @ -No Were there social determinants of health that impacted care today? How? (Homelessness, low income, unemployed, alcoholism, drug addiction, transportation, low edu. Level, literacy, decrease access to med. care, skilled nursing, rehab)? @ -No Was there de-escalation of care discussed even if they declined? (Discuss DNR or withdrawal of care, Hospice)? @ -No What co-morbidities impacted this encounter? (DM, HTN, Smoking, COPD, CAD, Cancer, CVA, Hep., AIDS, mental health diagnosis, sleep apnea, morbid obesity)? @ -DM, HTN, CAD Was patient admitted / discharged? @ -Discharge. Patient denied any complaints and was requesting medication refills. He was given a refill on the medications that were prescribed in our system 2 months ago. He was otherwise unsure what the medications would be. Information provided for him to make sure he follows up with a primary care provider for ongoing medical care and prescription management. Patient discharged home in stable condition. Case discussed with ED attending Dr. Bedolla. Return precautions reviewed in depth, the patient is instructed to return to the emergency department with any new, worsening, or concerning symptoms. Patient verbalized understanding. Undiagnosed new problem with uncertain prognosis? @ -None Drug Therapy requiring intensive monitoring for toxicity (Heparin, Nitro, Insulin, Cardizem)? @ -None Were any procedures done? @ -None Diagnosis/symptom? @ -Encounter for medication refill Acute, or Chronic, or Acute on Chronic? @ -Acute Uncomplicated (without systemic symptoms) or Complicated (systemic symptoms)? @ -Uncomplicated Side effects of treatment? @ -None Exacerbation, Progression, or Severe Exacerbation] @ -Not applicable Poses a threat to life or bodily function? @ -No - Lab Data Lab Results 04/15/25 Range/Units 11:44 POC Glucose (mg/dL) 348 H (70-110) mg/dL POC Glu [employer]it Drafter LARA Phillips Disposition Clinical Impression: Encounter for medication refill Disposition: HOME SELF-CARE Additional Instructions: Return to the emergency department with any new, worsening, or concerning symptoms. Take your medication as prescribed and make sure you follow-up with your primary care provider or become established with a primary care provider for ongoing care. Prescriptions: Benztropine Mesylate [Cogentin] 1 mg PO DAILY #30 tab carvediloL [Coreg*] 12.5 mg PO BID #60 tab Losartan [Cozaar] 100 mg PO DAILY #60 tab Aspirin EC [Ecotrin Low Dose] 81 mg PO DAILY #30 tab Insulin Lispro [humaLOG Kwikpen] 2 unit SQ TID-W/MEALS #5 each Insulin Glargine,Hum.rec.anlog [Lantus Solostar Pen] 30 units SQ DAILY #5 each metFORMIN HCL 1,000 mg PO BID #60 tab Ibuprofen [Motrin] 600 mg PO BID PRN #60 tab PRN Reason: Pain amLODIPine [Norvasc] 5 mg PO BID #60 tab Is patient prescribed a controlled substance at d/c from ED?: No Referrals: None,Stated [Primary Care Provider] - 1-2 days Conchita Sam MD [RESIDENT] - 1-2 days Forms: Area PCPs Time of Disposition: 13:48
== END 2025-04-15 13:56 | disposition home or self-care (01) ==
LOC: EC 11:33
DX: Z76.0 Encounter for issue of repeat prescription (principal); E10.9 Type 1 diabetes mellitus without complications; I10 Essential (primary) hypertension; I25.10 Atherosclerotic heart disease of native coronary artery without angina pectoris; F17.290 Nicotine dependence, other tobacco product, uncomplicated; Z91.041 Radiographic dye allergy status; Z91.09 Other allergy status, other than to drugs and biological substances
CPT/HCPCS: 36415; 99281